=== PATIENT | male | born 1930 | race Caucasian/White ===

== ENCOUNTER 2017-01-27 15:55 | Inpatient (IN) | payer OTHER, MEDICARE ==
[~2017-01-27] VITALS: Ht 182.9 cm; Wt 98.5 kg
[2017-01-27] VITALS (7 sets, daily range): BP systolic 90–137; BP diastolic 55–70; PULSE 72–102; RESP 18–22; TEMP 99.1–103.3; O2SAT 89–97
[~2017-01-27 15:55] MED LIST: CEPH500C3 PO; HYDR-3533 PO; HYDR25; LUTE6TAB2 PO; OMPR20CCR PO
[2017-01-27] MEDS ORDERED: Atarax PO (16:09)
[2017-01-27] MEDS ORDERED: ACETAMINOPHEN 325 MG TAB PO ONE (16:15)
[2017-01-27] MEDS ORDERED: SODIUM CHLOR 0.9% 1000 ML INJ 1,000 ML IV ONE (16:15)
--- NOTE | 2017-01-27 16:19 | PD ---
HPI Chief Complaint: Fever Time Seen by Provider: 16:06 Travel History International Travel<30 days: No Contact w/Intl Traveler<30days: No Traveled to known affect area: No History of Present Illness HPI Patient is an 87-year-old male who is brought to the emergency room for evaluation of tremors. Patient reports that he began to have tremors this morning around 9:30am. Reports no chest pain or sob or fever/chills.. Reports that he has had a nonproductive cough. Patient denies abdominal pain, denies n/ v. Patient with no complaints at this time. Patient does have a pacemaker in place - reports that his regulatory affairs director is Dr. Harden. Patient reports that the only medication that he takes is atarax. 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) Genitourinary Surgery: Yes (VASECTOMY) Pacemaker: Yes Other Surgery: Yes Social History Alcohol Use: Yes (DAILY COCKTAIL) Tobacco Use: No (QUIT 1993) Substance Use: No Allergies-Medications (Allergen,Severity, Reaction): Coded Allergies: aspirin (Unverified Allergy, Severe, 11/20/16) oxaprozin (Unverified Allergy, Severe, BRUISES, 11/20/16) Reported Meds & Prescriptions Reported Meds & Active Scripts Active Reported [Atarax] 30 Mg PO DAILY Review of Systems General / Constitutional: Positive: Chills, No: Fever Eyes: No: Visual changes HENT: No: Headaches Cardiovascular: Positive: Tachycardia, No: Chest Pain or Discomfort Respiratory: No: Shortness of Breath Gastrointestinal: No: Abdominal Pain Genitourinary: No: Dysuria Musculoskeletal: No: Pain Skin: No Rash Neurologic: Positive: Tremor, Other ("tremors"), No: Weakness, Headache Psychiatric: No: Depression Endocrine: No: Polydipsia Hematologic/Lymphatic: No: Easy Bruising Physical Exam Narrative GENERAL: Moderate distress, patient tremulous SKIN: Focused skin assessment warm/dry. HEAD: Atraumatic. Normocephalic. EYES: Pupils equal and round. No scleral icterus. No injection or drainage. ENT: No nasal bleeding or discharge. Mucous membranes pink and moist. NECK: Trachea midline. No JVD. CARDIOVASCULAR: Regular rate and rhythm. No murmur appreciated. RESPIRATORY: No accessory muscle use. Clear to auscultation. Breath sounds equal bilaterally. GASTROINTESTINAL: Abdomen soft, non-tender, nondistended. Hepatic and splenic margins not palpable. MUSCULOSKELETAL: No obvious deformities. No clubbing. No cyanosis. No edema. NEUROLOGICAL: Awake and alert. No obvious cranial nerve deficits. Motor grossly within normal limits. Normal speech. PSYCHIATRIC: Appropriate mood and affect; insight and judgment normal. Data Data Last Documented VS Vital Signs Date Time Temp Pulse Resp B/P (MAP) Pulse Ox O2 Delivery O2 Flow Rate FiO2 01/27/17 18:03 72 18 109/68 (82) 97 Room Air 01/27/17 17:58 103.0 2.00 Orders Orders Electrocardiogram (01/27/17 16:07) Complete Blood Count With Diff (01/27/17 16:07) Comprehensive Metabolic Panel (01/27/17 16:07) Prothrombin Time / Inr (Pt) (01/27/17 16:07) Act Partial Throm Time (Ptt) (01/27/17 16:07) Lactic Acid Sepsis Protocol (01/27/17 16:07) Magnesium (Mg) (01/27/17 16:07) Lipase (01/27/17 16:07) Ckmb (Isoenzyme) Profile (01/27/17 16:07) Troponin I (01/27/17 16:07) Urinalysis - C+S If Indicated (01/27/17 16:07) Influenzae A/B Antigen (01/27/17 16:07) Blood Culture (01/27/17 16:07) Chest, Single Ap (01/27/17 16:07) Blood Glucose (01/27/17 16:07) Ecg Monitoring (01/27/17 16:07) Iv Access Insert/Monitor (01/27/17 16:07) Oximetry (01/27/17 16:07) Sodium Chlor 0.9% 1000 Ml Inj (Ns 1000 M (01/27/17 16:15) Acetaminophen (Tylenol) (01/27/17 16:15) Piperacil-Tazo 3.375 Gm Premix (Zosyn 3. (01/27/17 17:15) Vancomycin Inj (Vancomycin Inj) (01/27/17 17:15) Us Abdomen Gallbladder (01/27/17 ) Admit Order (Ed Use Only) (01/27/17 18:39) Admit To Inpatient (01/27/17 ) Code Status (01/27/17 18:40) Vital Signs (Adult) Q4H (01/27/17 18:40) Activity Bed Rest With Brp (01/27/17 18:40) Sales Enablement Analyst / Telemetry .CONTINUOUS (01/27/17 18:40) Diet Npo (01/27/17 Dinner) Sodium Chlor 0.9% 1000 Ml Inj (Ns 1000 M (01/27/17 18:40) Sodium Chloride 0.9% Flush (Ns Flush) (01/27/17 18:45) Sodium Chloride 0.9% Flush (Ns Flush) (01/27/17 21:00) Acetaminophen (Tylenol) (01/27/17 18:45) Ondansetron Inj (Zofran Inj) (01/27/17 18:45) Comprehensive Metabolic Panel (01/28/17 06:00) Complete Blood Count With Diff (01/28/17 06:00) Lipase (01/28/17 06:00) Electrocardiogram (01/27/17 18:40) Resp Oxygen Garrick C Titrat 1-4 L (01/27/17 ) Pt Request For Service (01/27/17 18:40) Ot Request For Service (01/27/17 18:40) Scd Bilateral/Knee High LAVERN.BID (01/27/17 18:40) Naloxone Inj (Narcan Inj) (01/27/17 18:45) Docusate Sodium-Senna (Lynda-Colace) (01/27/17 21:00) Magnesium Hydroxide Liq (Milk Of Magnesi (01/27/17 18:45) Sennosides (Senokot) (01/27/17 18:45) Bisacodyl Supp (Dulcolax Supp) (01/27/17 18:45) Lactulose Liq (Lactulose Liq) (01/27/17 18:45) Inpatient Certification (01/27/17 ) Labs Laboratory Tests Test 01/27/17 16:02 01/27/17 16:13 01/27/17 17:22 Lactic Acid Level 3.0 mmol/L White Blood Count 14.6 TH/MM3 Red Blood Count 2.82 MIL/MM3 Hemoglobin 10.2 GM/DL Hematocrit 31.3 % Mean Corpuscular Volume 111.0 FL Mean Corpuscular Hemoglobin 36.2 PG Mean Corpuscular Hemoglobin Concent 32.6 % Red Cell Distribution Width 28.4 % Platelet Count 135 TH/MM3 Mean Platelet Volume 8.9 FL CBC Comment AUTO DIFF Differential Total Cells Counted 100 Neutrophils % (Manual) 79 % Band Neutrophils % 10 % Lymphocytes % 7 % Neutrophils # (Manual) 13.6 TH/MM3 Metamyelocytes 4 % Differential Comment FINAL DIFF MANUAL Prothrombin Time 11.2 SEC Prothromb Time International Ratio 1.0 RATIO Activated Partial Thromboplast Time 26.4 SEC Blood Urea Nitrogen 16 MG/DL Creatinine 1.02 MG/DL Random Glucose 149 MG/DL Total Protein 7.3 GM/DL Albumin 4.0 GM/DL Calcium Level 9.1 MG/DL Magnesium Level 1.9 MG/DL Alkaline Phosphatase 169 U/L Aspartate Amino Transf (AST/SGOT) 271 U/L Alanine Aminotransferase (ALT/SGPT) 192 U/L Total Bilirubin 3.6 MG/DL Sodium Level 134 MEQ/L Potassium Level 4.1 MEQ/L Chloride Level 102 MEQ/L Carbon Dioxide Level 24.0 MEQ/L Anion Gap 8 MEQ/L Estimat Glomerular Filtration Rate 69 ML/MIN Total Creatine Kinase 26 U/L Troponin I LESS THAN 0.02 NG/ML Lipase 390 U/L Urine Color DARK-YELLOW Urine Turbidity CLEAR Urine pH 6.0 Urine Specific [place] 1.021 Urine Protein TRACE mg/dL Urine Glucose (UA) NEG mg/dL Urine Ketones NEG mg/dL Urine Occult Blood NEG Urine Nitrite NEG Urine Bilirubin SMALL Urine Urobilinogen 8.0 MG/DL Urine Leukocyte Esterase NEG Urine RBC 2 /hpf Urine WBC 3 /hpf Urine Squamous Epithelial Cells <1 /hpf Urine Mucus FEW /lpf Microscopic Urinalysis Comment CATH-CULT NOT IND MDM Medical Decision Making Medical Screen Exam Complete: Yes Emergency Medical Condition: Yes Medical Record Reviewed: Yes Interpretation(s) Vital Signs Date Time Temp Pulse Resp B/P (MAP) Pulse Ox O2 Delivery O2 Flow Rate FiO2 01/27/17 16:04 100.0 102 22 137/59 (85) 89 Differential Diagnosis Differential includes pneumonia, infection, ACS, arrhythmia, electrolyte abnormality Narrative Course Vital Signs Date Time Temp Pulse Resp B/P (MAP) Pulse Ox O2 Delivery O2 Flow Rate FiO2 01/27/17 16:04 100.0 102 22 137/59 (85) 89 Patient with a temperature of 100.0, patient tachycardic with heart rate of 102 , respiratory rate of 22. Patient's only complaint is tremors, given his SIRS criteria, blood culture as well as lactic acid ordered. CBC, CMP, CE's ordered. Patient was placed on a athletic monitor upon arrival to ER, plan to monitor patient. Vital Signs Date Time Temp Pulse Resp B/P (MAP) Pulse Ox O2 Delivery O2 Flow Rate FiO2 01/27/17 17:01 103.3 01/27/17 16:12 97 Nasal Cannula 2.00 01/27/17 16:04 100.0 102 22 137/59 (85) 89 Laboratory Tests Test 01/27/17 16:02 01/27/17 16:13 01/27/17 17:22 Lactic Acid Level 3.0 mmol/L (0.4-2.0) White Blood Count 14.6 TH/MM3 (4.0-11.0) Red Blood Count 2.82 MIL/MM3 (4.50-5.90) Hemoglobin 10.2 GM/DL (13.0-17.0) Hematocrit 31.3 % (39.0-51.0) Mean Corpuscular Volume 111.0 FL (80.0-100.0) Mean Corpuscular Hemoglobin 36.2 PG (27.0-34.0) Mean Corpuscular Hemoglobin Concent 32.6 % (32.0-36.0) Red Cell Distribution Width 28.4 % (11.6-17.2) Platelet Count 135 TH/MM3 (150-450) Mean Platelet Volume 8.9 FL (7.0-11.0) CBC Comment AUTO DIFF Differential Total Cells Counted 100 Neutrophils % (Manual) 79 % (16-70) Band Neutrophils % 10 % (0-6) Lymphocytes % 7 % (9-44) Neutrophils # (Manual) 13.6 TH/MM3 (1.8-7.7) Metamyelocytes 4 % (0-1) Differential Comment FINAL DIFF MANUAL Prothrombin Time 11.2 SEC (9.8-11.6) Prothromb Time International Ratio 1.0 RATIO Activated Partial Thromboplast Time 26.4 SEC (24.3-30.1) Blood Urea Nitrogen 16 MG/DL (7-18) Creatinine 1.02 MG/DL (0.60-1.30) Random Glucose 149 MG/DL (74-106) Total Protein 7.3 GM/DL (6.4-8.2) Albumin 4.0 GM/DL (3.4-5.0) Calcium Level 9.1 MG/DL (8.5-10.1) Magnesium Level 1.9 MG/DL (1.5-2.5) Alkaline Phosphatase 169 U/L (45-117) Aspartate Amino Transf (AST/SGOT) 271 U/L (15-37) Alanine Aminotransferase (ALT/SGPT) 192 U/L (12-78) Total Bilirubin 3.6 MG/DL (0.2-1.0) Sodium Level 134 MEQ/L (136-145) Potassium Level 4.1 MEQ/L (3.5-5.1) Chloride Level 102 MEQ/L (98-107) Carbon Dioxide Level 24.0 MEQ/L (21.0-32.0) Anion Gap 8 MEQ/L (5-15) Estimat Glomerular Filtration Rate 69 ML/MIN (>89) Total Creatine Kinase 26 U/L (39-308) Troponin I LESS THAN 0.02 NG/ML Lipase 390 U/L (73-393) Last Impressions Chest X-Ray 01/27/17 1607 Signed Impressions: Service Date/Time: Friday, January 27, 2017 16:18 - CONCLUSION: 1. Mild basal atelectasis. No effusion or pneumothorax. Mejia Sewell MD Patient with lactic acidosis with bandemia (10), patients lactate 3.0, wbc 14.6 , patient has been pancultured and vanco as well as zosyn ordered for her. He does have transaminitis with elevated tbili, RUQ US ordered Patient will require admission at this time for workup for sepsis case reviewed with dr. vargas who accepts pt to service Diagnosis Primary Impression: Sepsis Qualified Codes: A41.9 - Sepsis, unspecified organism Additional Impressions: Anemia Qualified Codes: D64.9 - Anemia, unspecified Transaminitis Admitting Information Admitting Physician Requests: Admit Liliya Peres DO Jan 27, 2017 16:19
[2017-01-27 16:50] LABS: HEMATOCRIT 31.3 % (39.0-51.0); MEAN CORPUSCULAR HEMOGLOBIN 36.2 PG (27.0-34.0); MEAN CORPUSCULAR HGB CONC 32.6 % (32.0-36.0); PLATELET COUNT 135 TH/MM3 (150-450); RED BLOOD COUNT 2.82 MIL/MM3 (4.50-5.90); RED CELL DISTRIBUTION WIDTH 28.4 % (11.6-17.2); WHITE BLOOD COUNT 14.6 TH/MM3 (4.0-11.0)
--- NOTE | 2017-01-27 17:03 | RADRPT ---
EXAM DATE/TIME: 01/27/2017 16:18 [facility] COMPARISON: CHEST SINGLE AP, April 21, 2014, 19:37. INDICATIONS : Fever and shortness of breath. MEDICAL HISTORY : Hypertension. SURGICAL HISTORY : Pacemaker. ENCOUNTER: Initial ACUITY: 2 days PAIN SCORE: Non-responsive. LOCATION: Bilateral chest FINDINGS: A single view of the chest demonstrates pacer leads overlying right atrium and right ventricle. Heart size mildly enlarged. Mild basal atelectasis. No pneumothorax. No significant effusion. CONCLUSION: 1. Mild basal atelectasis. No effusion or pneumothorax. Mejia Sewell MD on January 27, 2017 at 16:49 Board Certified Radiologist. This report was verified electronically.
[2017-01-27 17:04] LABS: ANION GAP 8 MEQ/L (5-15); APTT (PATIENT) 26.4 SEC (24.3-30.1); AST (GOT) 271 U/L (15-37); BLOOD UREA NITROGEN 16 MG/DL (7-18); CHLORIDE 102 MEQ/L (98-107); GLOMERULAR FILTRATION RATE 69 ML/MIN (>89); MAGNESIUM 1.9 MG/DL (1.5-2.5); POTASSIUM 4.1 MEQ/L (3.5-5.1); PROTHROMBIN TIME - PATIENT 11.2 SEC (9.8-11.6); SODIUM (NA) 134 MEQ/L (136-145)
[2017-01-27 17:05] LABS: ALT (GPT) 192 U/L (12-78)
[2017-01-27 17:08] LABS: ALKALINE PHOSPHATASE 169 U/L (45-117); TOTAL BILIRUBIN ADULT 3.6 MG/DL (0.2-1.0)
[2017-01-27 17:09] LABS: CREATINE KINASE 26 U/L (39-308); HEMO FLAGS AUTO DIFF
[2017-01-27] MEDS ORDERED: VANCOMYCIN INJ 1,400 MG in SODIUM CHLORID 0.9% 500 ML INJ 500 ML IV ONE (17:15)
[2017-01-27] MEDS ORDERED: PIPERACIL-TAZO 3.375 GM PREMIX 50 ML IV ONE (17:15)
[2017-01-27 17:37] LABS: BANDS 10 % (0-6); METAMYELOCYTES 4 % (0-1); NEUTROPHIL # MANUAL DIFF 13.6 TH/MM3 (1.8-7.7); POLYS (SEG NEUTROPHILS) 79 % (16-70); WBC DIFF SAMPLE 100
[2017-01-27 17:38] LABS: SCAN/DIFF FINAL DIFF MANUAL
[2017-01-27 17:41] LABS: BLOOD, URINE NEG (NEG); GLUCOSE,URINE NEG (NEG); KETONE, URINE NEG (NEG); MUCUS URINE FEW /lpf (OCC); NITRITE,URINE NEG (NEG); SQUAMOUS EPITHELIAL CELL URINE <1 /hpf (0-5); URINE COLOR DARK-YELLOW (YELLW/STRAW)
[2017-01-27 17:42] LABS: COMMENT (UR) CATH-CULT NOT IND; CULTURE IF INDICATED CATH CULTURE NOT IND
--- NOTE | 2017-01-27 18:10 | RADRPT ---
EXAM DATE/TIME: 01/27/2017 17:41 [facility] COMPARISON: No previous studies available for comparison. INDICATIONS : Right upper quadrant pain. MEDICAL HISTORY : Hearing aids. Glasses. Dentures. Diabetes. SURGICAL HISTORY : Pacemaker. Left eye corneal implant. Hernia repair. Vasectomy. Right knee scope. ENCOUNTER: Initial ACUITY: 1 day PAIN SCORE: 4/10 LOCATION: Right upper quadrant MEASUREMENTS: LIVER: 17.5 cm length COMMON DUCT: 6 mm RIGHT KIDNEY: 12.0 x 4.2 x 6.1 cm FINDINGS: LIVER: Normal echotexture without focal lesion or ductal dilatation. COMMON DUCT: No intraluminal mass or stone visualized. GALLBLADDER: Contains no stones, demonstrates no wall thickening or pericholecystic fluid. PANCREAS: The visualized portions are within normal limits. RIGHT KIDNEY: No evidence of hydronephrosis, stone, or mass. CONCLUSION: Normal examination. John Velez Jr., MD on January 27, 2017 at 18:05 Board Certified Radiologist. This report was verified electronically.
--- NOTE | 2017-01-27 18:36 | HHI.HP ---
HPI Service [facility] Primary Care Physician Bimal Cottrell MD Admission Diagnosis Diagnoses: Chief Complaint: "Shaking", fevers Travel History International Travel<30 Days: No Contact w/Intl Traveler <30 Da: No Traveled to Known Affected Are: No Sepsis Criteria SIRS Criteria (2 or more): Temp > 100.9 or < 96.8, Heart rate over 90, WBC > 37005, < 4000 or > 10% bands Sepsis Criteria (SIRS+source): Infect source susp/known Severe Sepsis (+one): Organ Dysfunction, Lactate >2 Criteria Outcome: Meets SIRS criteria, Meets sepsis criteria, Meets severe sepsis criteria History of Present Illness Patient is a pleasant 87-year-old male with primary medical history of macular degeneration, BPH, mild PVD who came into the hospital for evaluation of "shakes " and fever. at the bedside and neighbor at the bedside. reports that yesterday patient had abdominal pain but states it went away after. This morning he again has another abdominal pain, mid epigastric region, but states it went away after a few minutes and then patient started to have some shaking episode with his hands with tremors, noted to have fever but did not take the temperature. Patient denies any abdominal pain, nausea, vomiting, diarrhea. Denies any cramping, dysuria. Denies any chest pain, palpitations. On 2 L nasal cannula, denies any shortness of breath, dyspnea. Review of records, patient also had a history of A. fib, atrioventricular block , bradycardia. Previously seen by Dr. Diallo for permanent pacemaker placement 2014. Review of Systems Constitutional: COMPLAINS OF: Fever Endocrine: DENIES: Heat/cold intolerance, Polydipsia, Polyuria Eyes: DENIES: Blurred vision, Diplopia, Eye inflammation Ears, nose, mouth, throat: DENIES: Tinnitus, Hearing loss Respiratory: DENIES: Apneas, Cough, Snoring, Wheezing Cardiovascular: DENIES: Chest pain, Palpitations, Syncope, Dyspnea on Exertion Gastrointestinal: COMPLAINS OF: Abdominal pain, DENIES: Black stools, Bloody stools, Constipation, Diarrhea Genitourinary: DENIES: Sexual dysfunction Musculoskeletal: DENIES: Joint pain, Muscle aches, Stiffness Integumentary: DENIES: Abnormal pigmentation, Nail changes Hematologic/lymphatic: DENIES: Bruising, Lymphadenopathy Immunologic/allergic: DENIES: Eczema, Urticaria Neurologic: DENIES: Headache, Localized weakness, Paresthesias, Seizures Psychiatric: COMPLAINS OF: Confusion, DENIES: Anxiety, Mood changes, Depression , Hallucinations Except as stated in HPI: all other systems reviewed are Neg Past Family Social History Past Medical History Macular degeneration BPH Mild PVD Atrial fibrillation Atrioventricular block Past Surgical History Right knee replacement Permanent pacemaker dual chamber, 2014 Double hernia repair Vasectomy Left corneal transplant Reported Medications Reported Meds & Active Scripts Active Reported [Atarax] 30 Mg PO DAILY Allergies: Coded Allergies: aspirin (Unverified Allergy, Severe, 11/20/16) oxaprozin (Unverified Allergy, Severe, BRUISES, 11/20/16) Active Ordered Medications Current Medications Medications (Trade) Dose Ordered Sig/Tati Route Start Time Stop Time Status Last Admin Vancomycin HCl 1400 mg/Sodium Chloride 514 ml @ 250 mls/hr ONCE ONCE IV 01/27/17 17:15 01/27/17 19:18 01/27/17 17:45 Family History Father history of cardiac arrest Brother has heart disease Social History Previous alcohol use Former smoker quit 1993 Denies illicit drug use Physical Exam Vital Signs Vital Signs Date Time Temp Pulse Resp B/P (MAP) Pulse Ox O2 Delivery O2 Flow Rate FiO2 01/27/17 18:03 72 18 109/68 (82) 97 Room Air 01/27/17 17:58 103.0 95 20 109/56 (73) 97 Nasal Cannula 2.00 01/27/17 17:01 103.3 01/27/17 16:12 97 Nasal Cannula 2.00 01/27/17 16:04 100.0 102 22 137/59 (85) 89 Physical Exam GENERAL: This is a well-nourished, well-developed patient, mildly ill appearing. SKIN: Warm and dry. Jaundice. HEAD: Normocephalic. EYES: Pupils equal round and reactive. Extraocular motions intact. Scleral icterus noted. No injection or drainage. ENT: Nose without bleeding. Throat without erythema. Uvula midline. Airway patent. TONGUE MIDLINE- JAUNDICE UNDERSIDE OF TONGUE NECK: Trachea midline. CARDIOVASCULAR: Elevated HR 100s S1, S2 NO S3 OR S4 IRR RESPIRATORY: Diminished bases. No wheezes, rales, or rhonchi. GASTROINTESTINAL: Abdomen soft, non-tender, nondistended. No guarding. Bowel sounds active 4. MUSCULOSKELETAL: Extremities without clubbing, cyanosis, or edema. NEUROLOGICAL: Awake and alert. Oriented to time, place, president. Cranial nerves II through XII intact. Motor and sensory grossly within normal limits. Normal speech. INSIGHT AND JUDGEMENT ARE GOOD, MOOD AND BEHAVIOR ARE APPROPRIATE Laboratory Laboratory Tests Test 01/27/17 16:02 01/27/17 16:13 01/27/17 17:22 Lactic Acid Level 3.0 White Blood Count 14.6 Red Blood Count 2.82 Hemoglobin 10.2 Hematocrit 31.3 Mean Corpuscular Volume 111.0 Mean Corpuscular Hemoglobin 36.2 Mean Corpuscular Hemoglobin Concent 32.6 Red Cell Distribution Width 28.4 Platelet Count 135 Mean Platelet Volume 8.9 CBC Comment AUTO DIFF Differential Total Cells Counted 100 Neutrophils % (Manual) 79 Band Neutrophils % 10 Lymphocytes % 7 Neutrophils # (Manual) 13.6 Metamyelocytes 4 Differential Comment FINAL DIFF MANUAL Prothrombin Time 11.2 Prothromb Time International Ratio 1.0 Activated Partial Thromboplast Time 26.4 Blood Urea Nitrogen 16 Creatinine 1.02 Random Glucose 149 Total Protein 7.3 Albumin 4.0 Calcium Level 9.1 Magnesium Level 1.9 Alkaline Phosphatase 169 Aspartate Amino Transf (AST/SGOT) 271 Alanine Aminotransferase (ALT/SGPT) 192 Total Bilirubin 3.6 Sodium Level 134 Potassium Level 4.1 Chloride Level 102 Carbon Dioxide Level 24.0 Anion Gap 8 Estimat Glomerular Filtration Rate 69 Total Creatine Kinase 26 Troponin I LESS THAN 0.02 Lipase 390 Urine Color DARK-YELLOW Urine Turbidity CLEAR Urine pH 6.0 Urine Specific [place] 1.021 Urine Protein TRACE Urine Glucose (UA) NEG Urine Ketones NEG Urine Occult Blood NEG Urine Nitrite NEG Urine Bilirubin SMALL Urine Urobilinogen 8.0 Urine Leukocyte Esterase NEG Urine RBC 2 Urine WBC 3 Urine Squamous Epithelial Cells <1 Urine Mucus FEW Microscopic Urinalysis Comment CATH-CULT NOT IND Date/Time Source Procedure Growth Status 01/27/17 16:10 Blood Peripheral Aerobic Blood Culture Pending Received 01/27/17 16:10 Blood Peripheral Anaerobic Blood Culture Pending Received 01/27/17 16:57 Nasal Aspirate Influenza Types A,B Antigen ([facility]) - Final NEGATIVE FOR FLU A AND B ANTIGEN.... Complete Result Diagram: 01/27/17 1613 01/27/17 1613 Imaging Last Impressions Chest X-Ray 01/27/17 1607 Signed Impressions: Service Date/Time: Friday, January 27, 2017 16:18 - CONCLUSION: 1. Mild basal atelectasis. No effusion or pneumothorax. MD Stephanie Roldan VTE Risk Assessment Caprini VTE Risk Assessment: Mod/High Risk (score >= 2) Caprini Risk Assessment Model Point Value = 1 Point Value = 2 Point Value = 3 Point Value = 5 Age 41-60 Minor surgery BMI > 25 kg/m2 Swollen legs Varicose veins or History of unexplained or recurrent spontaneous Oral contraceptives or hormone replacement Sepsis (< 1 month) Serious lung disease, including pneumonia (< 1 month) Abnormal pulmonary function Acute myocardial infarction Congestive heart failure (< 1 month) History of inflammatory bowel disease Medical patient at bed rest Age 61-74 Arthroscopic surgery Major open surgery (> 45 min) Laparoscopic surgery (> 45 min) Malignancy Confined to bed (> 72 hours) Immobilizing plaster cast Central venous access Age >= 75 History of VTE Family history of VTE Factor V Leiden Prothrombin [id number] Lupus anticoagulant Anticardiolipin antibodies Elevated serum homocysteine Heparin-induced thrombocytopenia Other congenital or acquired thrombophilia Stroke (< 1 month) Elective arthroplasty Hip, pelvis, or leg fracture Acute spinal cord injury (< 1 month) Prophylaxis Regimen Total Risk Factor Score Risk Level Prophylaxis Regimen 0-1 Low Early ambulation 2 Moderate Order ONE of the following: *Sequential Compression Device (SCD) *Heparin 5000 units SQ BID 3-4 Higher Order ONE of the following medications: *Heparin 5000 units SQ TID *Enoxaparin/Lovenox 40 mg SQ daily (WT < 150 kg, CrCl > 30 mL/min) *Enoxaparin/Lovenox 30 mg SQ daily (WT < 150 kg, CrCl > 10-29 mL/min) *Enoxaparin/Lovenox 30 mg SQ BID (WT < 150 kg, CrCl > 30 mL/min) AND/OR *Sequential Compression Device (SCD) 5 or more Highest Order ONE of the following medications: *Heparin 5000 units SQ TID (Preferred with Epidurals) *Enoxaparin/Lovenox 40 mg SQ daily (WT < 150 kg, CrCl > 30 mL/min) *Enoxaparin/Lovenox 30 mg SQ daily (WT < 150 kg, CrCl > 10-29 mL/min) *Enoxaparin/Lovenox 30 mg SQ BID (WT < 150 kg, CrCl > 30 mL/min) AND *Sequential Compression Device (SCD) Assessment and Plan Problem List: (1) Acute liver failure ICD Code: K72.00 - Acute and subacute hepatic failure without coma Status: Acute (2) Sepsis ICD Code: A41.9 - Sepsis, unspecified organism Status: Acute (3) Anemia ICD Code: D64.9 - Anemia, unspecified Status: Acute Assessment and Plan Patient is a pleasant 87-year-old male with primary medical history of macular degeneration, BPH, mild PVD who came into the hospital for evaluation of "shakes " and fever. Sepsis severe, SIRS Suspect Abdominal Source LEUKOCYTOSIS ELEVATED LACTIC ACID - WBC 14.6, Temp 100-->103.3, Lactic Acid 3.0 - Chest x-ray showed mild basilar atelectasis. No effusion or pneumothorax. - Check blood cultures - Ultrasound of the gallbladder showed normal examination - Check CT of the abdomen - Started vancomycin IV, Zosyn IV - IV fluids for hydration - Follow up labs in a.m. - Will consult ID if warranted for further recommendations Liver failure, acute - Transaminitis, T bili 3.6, AST 271, ALT 192, alkaline phosphatase 169 - CT of the abdomen - Will consult GI if warranted VERY HARD OF HEARING- HEARING AIDES OR SPEAK VERY LOUD HX OF PACEMAKER STABLE AM LABS DVT prop SCDs The exam, history, and the medical decision-making described in the above note were completed with the assistance of the mid-level provider. I reviewed and agree with the findings presented. I attest that I had a [id number] encounter with the patient on the same day, and personally performed and documented my assessment and findings in the medical record. Code Status Full code Discussed Condition With Patient, , nursing, Dr. Dougherty Physician Certification 2 Midnight Certification Type: Admission for Inpatient Services Order for Inpatient Services The services are ordered in accordance with Medicare regulations or non- Medicare payer requirements, as applicable. In the case of services not specified as inpatient-only, they are appropriately provided as inpatient services in accordance with the 2-midnight benchmark. Estimated LOS (days): 2 days is the estimated time the patient will need to remain in the hospital, assuming treatment plan goals are met and no additional complications. Post-Hospital Plan: Not yet determined Problem Qualifiers (1) Sepsis: Qualified Codes: A41.9 - Sepsis, unspecified organism (2) Anemia: Qualified Codes: D64.9 - Anemia, unspecified Natanael Coats Jan 27, 2017 18:36 Rocky Dougherty DO Jan 27, 2017 19:02
[2017-01-27 18:39] LABS: LACTIC ACID GHOST NOT REPORTABLE
[2017-01-27] MEDS ORDERED: ONDANSETRON HCL 4 MG/2 ML VIAL IVP PRN ×2 (18:45→19:00)
[2017-01-27] MEDS ORDERED: SODIUM CHLORIDE 0.9% FLUSH 10 ML FLUSH IV FLUSH PRN ×2 (18:45→19:00)
[2017-01-27] MEDS ORDERED: LACTULOSE SYRUP 20 GM/30 ML CUP PO PRN ×2 (18:45→19:00)
[2017-01-27] MEDS ORDERED: SENNOSIDES 8.6 MG TAB PO PRN ×2 (18:45→19:00)
[2017-01-27] MEDS ORDERED: NALOXONE HCL 0.4 MG/ML AMP IV PUSH PRN ×2 (18:45→19:00)
[2017-01-27] MEDS ORDERED: MAGNESIUM HYDROXIDE SUSP 30 ML CUP PO PRN ×2 (18:45→19:00)
[2017-01-27] MEDS ORDERED: BISACODYL 10 MG SUPP RECTAL PRN ×2 (18:45→19:00)
[2017-01-27] MEDS ORDERED: ACETAMINOPHEN 325 MG TAB PO PRN ×3 (18:45→19:00)
[2017-01-27] MEDS ORDERED: MORPHINE SULFATE 4 MG/ML INJ IV PUSH PRN ×3 (19:00)
[2017-01-27] MEDS ORDERED: PROCHLORPERAZINE 25 MG SUPP RECTAL PRN (19:00)
[2017-01-27] MEDS ORDERED: traMADol HCL 50 MG TAB PO PRN ×2 (19:00)
[2017-01-27] MEDS ORDERED: IOHEXOL 350 MG/ML 10 ML VIAL (for RAD DIAG) IVCONTRAST ONE (19:13)
[2017-01-27] MEDS: SODIUM CHLOR 0.9% 1000 ML INJ 1,000 ML IV SCH (19:28)
--- NOTE | 2017-01-27 19:29 | RADRPT ---
EXAM DATE/TIME: 01/27/2017 19:09 [facility] COMPARISON: No previous studies available for comparison. INDICATIONS : Fever and low abdominal pain X 2 days. IV CONTRAST: 98 cc Omnipaque 350 (iohexol) IV ORAL CONTRAST: No oral contrast ingested. RADIATION DOSE: 15.91 CTDIvol (mGy) MEDICAL HISTORY : Cardiovascular disease. Diabetes mellitus type 2. SURGICAL HISTORY : Right hip surgery ENCOUNTER: Initial ACUITY: 2 days PAIN SCALE: 6/10 LOCATION: abdomen TECHNIQUE: Volumetric scanning of the abdomen and pelvis was performed. Using automated exposure control and ad justment of the mA and/or kV according to patient size, radiation dose was kept as low as reasonably achievable to obtain optimal diagnostic quality images. DICOM format image data is available electro nically for review and comparison. FINDINGS: Lung bases demonstrate dependent atelectasis, scarring and calcified granulomata. No significant pleu ral or pericardial effusion. Mild fatty liver. Spleen, adrenals and pancreas unremarkable. Common bile duct mildly dilated to 14 m m. No calcified gallstones. There is severe sigmoid diverticulosis without diverticulitis. No inflammatory changes identified wit hin the abdomen and pelvis. Previous bilateral inguinal repair. Previous arjun fixation right femur. CONCLUSION: 1. No acute findings within the abdomen or pelvis. Severe diverticulosis without evidence for diverti culitis. 2. Mild biliary ductal dilatation without evidence for calcified gallstones. 3. Dependent atelectasis, scarring at the lung bases with calcified granulomata. Mejia Sewell MD on January 27, 2017 at 19:24 Board Certified Radiologist. This report was verified electronically.
[2017-01-27] MEDS ORDERED: DOCUSATE SODIUM 50 MG/SENNA 8.6 MG TAB PO SCH (21:00)
[2017-01-27] MEDS ORDERED: SODIUM CHLORIDE 0.9% FLUSH 10 ML FLUSH IV FLUSH SCH (21:00)
[2017-01-27] MEDS: SODIUM CHLORIDE 0.9% FLUSH 10 ML FLUSH IV FLUSH SCH (22:30)
[2017-01-27] MEDS: DOCUSATE SODIUM 50 MG/SENNA 8.6 MG TAB PO SCH (22:34)
[2017-01-28] VITALS (9 sets, daily range): BP systolic 93–132; BP diastolic 50–62; PULSE 62–104; RESP 19–22; TEMP 98.8–100.2; O2SAT 91–95
[2017-01-28] MEDS: PIPERACIL-TAZO 3.375 GM PREMIX 50 ML IV SCH ×5 (00:04→22:51)
[2017-01-28] MEDS ORDERED: VANCOMYCIN INJ 1,400 MG in SODIUM CHLORID 0.9% 500 ML INJ 500 ML IV SCH (06:00)
[2017-01-28] MEDS: SODIUM CHLOR 0.9% 1000 ML INJ 1,000 ML IV SCH ×2 (06:09→17:04)
[2017-01-28 08:14] LABS: AUTOMATED NEUTROPHIL # 24.6 TH/MM3 (1.8-7.7); BASOPHIL # 0.2 TH/MM3 (0-0.2); BASOPHIL % 0.6 % (0.0-2.0); HEMATOCRIT 28.1 % (39.0-51.0); LYMPH % 3.6 % (9.0-44.0); MEAN CORPUSCULAR HEMOGLOBIN 36.4 PG (27.0-34.0); MEAN CORPUSCULAR HGB CONC 33.4 % (32.0-36.0); NEUT % 93.8 % (16.0-70.0); PLATELET COUNT 111 TH/MM3 (150-450); RED BLOOD COUNT 2.58 MIL/MM3 (4.50-5.90); RED CELL DISTRIBUTION WIDTH 28.4 % (11.6-17.2); WHITE BLOOD COUNT 26.2 TH/MM3 (4.0-11.0)
[2017-01-28 08:18] LABS: HEMO FLAGS AUTO DIFF
[2017-01-28] MEDS: SODIUM CHLORIDE 0.9% FLUSH 10 ML FLUSH IV FLUSH SCH ×2 (08:52→21:00)
[2017-01-28] MEDS: DOCUSATE SODIUM 50 MG/SENNA 8.6 MG TAB PO SCH ×2 (08:54→21:00)
[2017-01-28 09:20] LABS: ANION GAP 11 MEQ/L (5-15); AST (GOT) 193 U/L (15-37); BLOOD UREA NITROGEN 20 MG/DL (7-18); CHLORIDE 107 MEQ/L (98-107); GLOMERULAR FILTRATION RATE 56 ML/MIN (>89); MAGNESIUM 1.8 MG/DL (1.5-2.5); POTASSIUM 3.6 MEQ/L (3.5-5.1); SODIUM (NA) 139 MEQ/L (136-145)
[2017-01-28 09:34] LABS: BANDS 22 % (0-6); NEUTROPHIL # MANUAL DIFF 24.6 TH/MM3 (1.8-7.7); PLATELET ESTIMATE SMEAR LOW (NORMAL); POLYS (SEG NEUTROPHILS) 72 % (16-70); SCAN/DIFF FINAL DIFF MANUAL; WBC DIFF SAMPLE 100
[2017-01-28 09:41] LABS: ALKALINE PHOSPHATASE 146 U/L (45-117); ALT (GPT) 227 U/L (12-78); FREE T4 1.25 NG/DL (0.76-1.46); TOTAL BILIRUBIN ADULT 4.2 MG/DL (0.2-1.0)
[2017-01-28 09:42] LABS: KERATOCYTES OCC (NORMAL); PLATELET MORPHOLOGY ENLARGED (NORMAL); TOXIC GRANULATION 1+ (NORMAL)
--- NOTE | 2017-01-28 10:32 | EKG ---
Date Performed: 01/27/2017 Time Performed: 21:59:22 PTAGE: 87 years EKG: SINUS TACHYCARDIA WITH FIRST DEGREE AV BLOCK RIGHT BUNDLE BRANCH BLOCK ABNORMAL ECG Compare d to PREVIOUS TRACING sinus rate is faster, PVCs are no longer seen PREVIOUS TRACIN 015 06.32 DOCTOR: Don Arcos Interpretating Date/Time 01/28/2017 10:31:27
--- NOTE | 2017-01-28 12:04 | OTSOAPIP ---
ATTEMPTED TO SEE PATIENT TWICE THIS MORNING. PATIENT OFF FLOOR FOR [facility]. WILL FOLLOW UP WITH PATIENT NEXT DAY. INTERDISCIPLINARY COMMUNICATION: REVIEWED ELECTRONIC MEDICAL RECORD, SPOKE WITH RN Therapist: Hemalatha Rosas OTR/Jai Signature on file
--- NOTE | 2017-01-28 13:02 | RADRPT ---
EXAM DATE/TIME: 01/28/2017 10:09 This report includes an Addendum and supersedes previous reports for this exam. [facility] COMPARISON: CT ABDOMEN & PELVIS W CONTRAST, January 27, 2017, 19:09. INDICATIONS : Abdominal pain for 1 day. DOSE: 4.1 mCi Tc99m Mebrofenin IV MEDICAL HISTORY : Carcinoma, basal cell. Cardiovascular disease SURGICAL HISTORY : Pacemaker. Right leg and vasectomy. ENCOUNTER: Initial ACUITY: 1 day PAIN SCALE: 3/10 LOCATION: Right upper quadrant TECHNIQUE: Following the intravenous administration of radiotracer, dynamic sequential images were performed wit h continuous acquisition. FINDINGS: HEPATIC KINETICS: There is prompt uptake of radiotracer in the liver. No focal defects are seen. There is normal rate of washout from the hepatic parenchyma. BILIARY CLEARANCE: Activity is first seen in the extrahepatic biliary system at 15 minutes. There is normal excretion i nto the small bowel. GALLBLADDER: Activity is first seen in the gallbladder at 25 minutes. Common bile duct kinetics are normal and th ere is no evidence of biliary obstruction. BILIARY ENTRIC REFLUX: None observed. CONCLUSION: Normal examination. John Velez Jr., MD on January 28, 2017 at 12:40 Board Certified Radiologist. This report was verified electronically. ADDENDUM: COMPARISON: US ABDOMEN - GALLBLADDER, January 27, 2017, 17:41. Delayed imaging was performed at 23 hours. An anterior planar view of the abdomen and pelvis demonst rates activity throughout the colon. No definite activity seen within the gallbladder. On the original dynamic acquisition, there was a changing pattern of uptake superimposed upon the com mon hepatic duct which mimicked the intensity of uptake in the distal common bile duct suggesting jairon t the activity seen on the original dynamics study is dilated common duct activity and not gallbladde r activity (CT images demonstrated the gallbladder to be farther lateral and inferior). Therefore, overall impression is that there is nonvisualization of the gallbladder up to 24 hours. T he findings would be suspicious cystic duct obstruction (acute cholecystitis). John Vee MD on January 29, 2017 at 9:08 Board Certified Radiologist. This report was verified electronically.
--- NOTE | 2017-01-28 15:00 | MB ---
cc: LAURA NGUYỄN MD, DANIEL M.D. DATE OF CONSULTATION: 01/28/[address] Matos. REASON FOR CONSULTATION Admitted with sepsis, transaminitis, hyperbilirubinemia. E. coli growing on blood culture. HISTORY OF PRESENT ILLNESS This is an 87-year-old white male who was brought to the emergency department yesterday evening after an episode of fever and tremors. The patient's states that he was shaking uncontrollably before he was brought to the emergency department. In the emergency department he had a temperature of 103 degrees. The heart rate was normal. White blood cell count was elevated at 14.6 and lactic acid level was also elevated at 3.0. The patient had a chest x-ray which was unremarkable. The urinalysis was performed and it showed 3 white cells. Urine culture was not performed. The patient was also noted to have elevation of his liver function tests and elevated bilirubin of 3.6. The patient denies abdominal pain. He went for a HIDA scan which came back normal. CT scan of the abdomen showed no acute findings within the abdomen or pelvis. Severe diverticulosis without evidence of diverticulitis was noted. There was also scarring at the lung bases with calcified granuloma. The patient has no diarrhea and denies vomiting or nausea. PAST MEDICAL HISTORY 1. Atrial fibrillation. 2. Benign prostatic hypertrophy. 3. Macular degeneration. 4. Pacemaker implantation April 2014. 5. Right knee replacement. 6. Hernia repair. 7. Vasectomy. 8. Left corneal transplant. ALLERGIES 1. ASPIRIN. 2. OXAPROZIN. MEDICATIONS 1. Vancomycin. 2. Piperacillin/tazobactam. 3. Lactulose. FAMILY HISTORY Noncontributory. REVIEW OF SYSTEMS Negative on 10-point review, except for the fevers and tremors. PHYSICAL EXAMINATION GENERAL: This is a well-developed male in no acute distress. He appears well-nourished. VITAL SIGNS: Temperature 100.2, BP 93/55, respirations 20. Heart rate 92. HEENT: The head is atraumatic. Extraocular movements grossly intact. Pupils reactive to light. No icterus. Oropharynx no visible lesions. NECK: Supple without adenopathy. LUNGS: Clear breath sounds. HEART: Regular rate and rhythm. No murmurs, rubs or gallops. The pacemaker site appears intact. ABDOMEN: Bowel sounds present. Soft. No tenderness appreciated. RECTAL: Not performed. EXTREMITIES: No clubbing, cyanosis or edema. No visible redness. The right knee has a surgical scar from the knee surgery which appears intact. SKIN: No rash. NEUROLOGIC: Nonfocal. PSYCHIATRIC: The patient is calm and cooperative. LABORATORY WBC 26.2, platelets 111, 93% neutrophils, 22% bands, hemoglobin 9.4. Creatinine 1.23, BUN 20, sodium 139. Total bilirubin 4.2, AST 193, ALT 227. Hepatitis A, B and C pending. IMPRESSION 1. Sepsis due to gram-negative bacteria. Unclear etiology. Positive blood culture with E. coli in one of four bottles. 2. Elevated liver function tests. Questionable etiology. Possible hepatitis. The patient has normal gallbladder ultrasound and HIDA scan is also normal. The patient appears clinically stable and his temperature is improved indicating that he likely responding to antibiotic treatment. RECOMMENDATIONS 1. Continue piperacillin/tazobactam. 2. Discontinue vancomycin. 3. Follow the blood cultures for sensitivity of the E. Coli. 4. Monitor the clinical status. Thank you for this consultation. The patient's progress and clinical response to antibiotic will be monitored and further recommendations will be given on follow-up if necessary. Laura Nguyễn MD FD/BT /2:09 PM /2:44 PM
--- NOTE | 2017-01-28 15:35 | HHI.PR ---
Subjective Remarks Abdominal pain feels better. HIDA scan ordered today due to persistent elevation in bilirubin level. HIDA scan shows no obstructive pattern. E.coli growth on blood culture. Source not known. Objective Vital Signs Date Time Temp Pulse Resp B/P (MAP) Pulse Ox O2 Delivery O2 Flow Rate FiO2 01/28/17 12:30 99.1 78 22 102/61 (75) 95 01/28/17 09:37 94 01/28/17 08:00 100.2 92 22 93/55 (68) 94 01/28/17 06:14 99.8 88 21 119/56 (77) 92 01/28/17 04:00 100.1 97 20 94/50 (65) 91 01/28/17 00:00 100.0 104 20 96/54 (68) 93 01/27/17 21:51 99.1 101 20 90/55 (67) 92 01/27/17 21:06 01/27/17 19:26 98 20 94 Nasal Cannula 2.00 01/27/17 19:23 101.2 99 20 109/70 (83) 94 Room Air 01/27/17 18:03 72 18 109/68 (82) 97 Room Air 01/27/17 17:58 103.0 95 20 109/56 (73) 97 Nasal Cannula 2.00 01/27/17 17:01 103.3 01/27/17 16:12 97 Nasal Cannula 2.00 01/27/17 16:04 100.0 102 22 137/59 (85) 89 I/O 01/27/17 01/27/17 01/27/17 01/28/17 01/28/17 01/28/17 07:00 15:00 23:00 07:00 15:00 23:00 Intake Total 1100 ml Output Total 600 ml Balance 500 ml Intake IV Total 1100 ml Output Urine Total 600 ml Bladder Scan Volume Amount 139 ml Result Diagram: 01/28/1772501/28/17725 Objective Remarks GENERAL: NAD, A&Ox3 HEAD: Normocephalic. NECK: Supple, trachea midline. No lymphadenopathy. EYES: No scleral icterus. No injection or drainage. CARDIOVASCULAR: Regular rate and rhythm without murmurs, gallops, or rubs. RESPIRATORY: Breath sounds equal bilaterally. No accessory muscle use. GASTROINTESTINAL: Abdomen soft, non-tender, nondistended. MUSCULOSKELETAL: No cyanosis, or edema. SKIN: Warm and dry. NEURO: No focal neurological deficitis. A/P Problem List: (1) Transaminitis ICD Code: R74.0 - Nonspecific elevation of levels of transaminase and lactic acid dehydrogenase [LDH] Status: Acute (2) Sepsis ICD Code: A41.9 - Sepsis, unspecified organism Status: Acute (3) Anemia ICD Code: D64.9 - Anemia, unspecified Status: Acute (4) Acute liver failure ICD Code: K72.00 - Acute and subacute hepatic failure without coma Status: Acute Assessment and Plan Assessment and Plan 87-year-old male admitted secondary to abdominal pain with sepsis, now positive Escherichia coli on blood culture Sepsis severe, SIRS Fevers Leukocytosis Transaminitis Continue to follow CBC Continue Zosyn ID consulted Bladder ultrasound, CT abdomen, and HIDA scan showed no pathology Liver failure, acute Hepatitis Hepatitis panel ordered Lines disease screen ordered Follow liver function studies Macular degeneration Presbycusis BPH Follow clinically DVT prophylaxis SCDs Problem Qualifiers (1) Sepsis: Qualified Codes: A41.9 - Sepsis, unspecified organism (2) Anemia: Qualified Codes: D64.9 - Anemia, unspecified Roel Matos MD Jan 28, 2017 15:35
[2017-01-28 16:27] LABS: HEMOGLOBIN A1a 1.1 %; HEMOGLOBIN A1b 1.5 %; HEMOGLOBIN Ao 85.7 %; HEMOGLOBIN LA1C 1.9 %; HEMOGLOBIN P3 3.7 %
[2017-01-29] VITALS (8 sets, daily range): BP systolic 115–135; BP diastolic 57–82; PULSE 70–80; RESP 16–20; TEMP 96.8–98.3; O2SAT 94–98
[2017-01-29] MEDS: SODIUM CHLOR 0.9% 1000 ML INJ 1,000 ML IV SCH ×2 (01:00→20:52)
[2017-01-29] MEDS: PIPERACIL-TAZO 3.375 GM PREMIX 50 ML IV SCH ×4 (05:01→22:41)
[2017-01-29 09:10] LABS: AUTOMATED NEUTROPHIL # 7.3 TH/MM3 (1.8-7.7); BASOPHIL # 0.1 TH/MM3 (0-0.2); BASOPHIL % 0.9 % (0.0-2.0); EOSINOPHIL # 0.1 TH/MM3 (0-0.4); EOSINOPHIL % 1.4 % (0.0-4.0); HEMATOCRIT 26.7 % (39.0-51.0); HEMO FLAGS AUTO DIFF; LYMPH % 13.3 % (9.0-44.0); LYMPHOCYTE # 1.2 TH/MM3 (1.0-4.8); MEAN CELL VOLUME 110.8 FL (80.0-100.0); MEAN CORPUSCULAR HGB CONC 33.4 % (32.0-36.0); MONO % 5.6 % (0.0-8.0); NEUT % 78.8 % (16.0-70.0); PLATELET COUNT 76 TH/MM3 (150-450); RED BLOOD COUNT 2.41 MIL/MM3 (4.50-5.90); RED CELL DISTRIBUTION WIDTH 28.9 % (11.6-17.2); WHITE BLOOD COUNT 9.2 TH/MM3 (4.0-11.0)
[2017-01-29] MEDS: SODIUM CHLORIDE 0.9% FLUSH 10 ML FLUSH IV FLUSH SCH ×2 (09:35→20:52)
[2017-01-29] MEDS: PANTOPRAZOLE SOD 40 MG DELAYED RELEASE TAB PO SCH (09:35)
[2017-01-29] MEDS: DOCUSATE SODIUM 50 MG/SENNA 8.6 MG TAB PO SCH ×2 (09:36→20:53)
[2017-01-29 09:45] LABS: BANDS 35 % (0-6); BASOPHILS 3 % (0-2); NEUTROPHIL # MANUAL DIFF 7.6 TH/MM3 (1.8-7.7); POLYS (SEG NEUTROPHILS) 48 % (16-70); WBC DIFF SAMPLE 100
[2017-01-29 09:46] LABS: PLATELET ESTIMATE SMEAR LOW (NORMAL); PLATELET MORPHOLOGY NORMAL (NORMAL); SCAN/DIFF FINAL DIFF MANUAL
[2017-01-29 11:22] LABS: ALKALINE PHOSPHATASE 135 U/L (45-117); ALT (GPT) 176 U/L (12-78); ANION GAP 12 MEQ/L (5-15); AST (GOT) 131 U/L (15-37); BLOOD UREA NITROGEN 16 MG/DL (7-18); CHLORIDE 112 MEQ/L (98-107); GLOMERULAR FILTRATION RATE 73 ML/MIN (>89); POTASSIUM 4.5 MEQ/L (3.5-5.1); SODIUM (NA) 138 MEQ/L (136-145); TOTAL BILIRUBIN ADULT 1.9 MG/DL (0.2-1.0)
--- NOTE | 2017-01-29 14:33 | HHI.IDPN ---
Note Infectious Disease Note Patient feels okay. No chills, nausea, abdominal pain or fever. Up in bedside recliner. HIDA scan result noted. Per radiology looks like acute cholecystitis. Patient was brought to the emergency department yesterday evening after an episode of fever and tremors. PAST MEDICAL HISTORY 1. Atrial fibrillation. 2. Benign prostatic hypertrophy. 3. Macular degeneration. 4. Pacemaker implantation April 2014. 5. Right knee replacement. 6. Hernia repair. 7. Vasectomy. 8. Left corneal transplant. ALLERGIES 1. ASPIRIN. 2. OXAPROZIN. ANTIBIOTICS: Piperacillin/tazobactam. FAMILY HISTORY Noncontributory. OBJECTIVE: Vital Signs Date Time Temp Pulse Resp B/P (MAP) Pulse Ox O2 Delivery O2 Flow Rate FiO2 01/29/17 12:00 96.9 72 17 120/82 (95) 95 01/29/17 10:00 80 01/29/17 08:00 96.8 72 16 135/64 (87) 95 01/29/17 04:15 98.3 72 18 115/60 (78) 96 01/29/17 00:00 98.3 79 18 120/57 (78) 98 01/28/17 20:12 98.8 62 19 132/62 (85) 94 01/28/17 20:10 85 01/28/17 17:46 95 21 Laboratory Tests Test 01/29/17 06:00 01/29/17 12:58 White Blood Count 9.2 TH/MM3 Red Blood Count 2.41 MIL/MM3 Hemoglobin 8.9 GM/DL Hematocrit 26.7 % Mean Corpuscular Volume 110.8 FL Mean Corpuscular Hemoglobin 37.0 PG Mean Corpuscular Hemoglobin Concent 33.4 % Red Cell Distribution Width 28.9 % Platelet Count 76 TH/MM3 Mean Platelet Volume 10.1 FL Neutrophils (%) (Auto) 78.8 % Lymphocytes (%) (Auto) 13.3 % Monocytes (%) (Auto) 5.6 % Eosinophils (%) (Auto) 1.4 % Basophils (%) (Auto) 0.9 % Neutrophils # (Auto) 7.3 TH/MM3 Lymphocytes # (Auto) 1.2 TH/MM3 Monocytes # (Auto) 0.5 TH/MM3 Eosinophils # (Auto) 0.1 TH/MM3 Basophils # (Auto) 0.1 TH/MM3 CBC Comment AUTO DIFF Differential Total Cells Counted 100 Neutrophils % (Manual) 48 % Band Neutrophils % 35 % Lymphocytes % 11 % Monocytes % 3 % Basophils % 3 % Neutrophils # (Manual) 7.6 TH/MM3 Differential Comment FINAL DIFF MANUAL Platelet Estimate LOW Platelet Morphology Comment NORMAL Hematology Comments Blood Urea Nitrogen 16 MG/DL Creatinine 0.98 MG/DL Random Glucose 77 MG/DL Total Protein 6.5 GM/DL Albumin 2.9 GM/DL Calcium Level 8.0 MG/DL Alkaline Phosphatase 135 U/L Aspartate Amino Transf (AST/SGOT) 131 U/L Alanine Aminotransferase (ALT/SGPT) 176 U/L Total Bilirubin 1.9 MG/DL Sodium Level 138 MEQ/L Potassium Level 4.5 MEQ/L Chloride Level 112 MEQ/L Carbon Dioxide Level 14.0 MEQ/L Anion Gap 12 MEQ/L Estimat Glomerular Filtration Rate 73 ML/MIN IMAGING: Hepatobiliary Scan Nuclear Medicine 01/28/17 0000 Signed Impressions: Service Date/Time: Saturday, January 28, 2017 10:09 - CONCLUSION: Normal examination. John Velez Jr., MD ADDENDUM: COMPARISON: US ABDOMEN - GALLBLADDER, January 27, 2017, 17:41. Delayed imaging was performed at 23 hours. An anterior planar view of the abdomen and pelvis demonstrates activity throughout the colon. No definite activity seen within the gallbladder. On the original dynamic acquisition, there was a changing pattern of uptake superimposed upon the common hepatic duct which mimicked the intensity of uptake in the distal common bile duct suggesting that the activity seen on the original dynamics study is dilated common duct activity and not gallbladder activity ( CT images demonstrated the gallbladder to be farther lateral and inferior). Therefore, overall impression is that there is nonvisualization of the gallbladder up to 24 hours. The findings would be suspicious cystic duct obstruction (acute cholecystitis). John Vee MD Chest X-Ray 01/27/17 1607 Signed Impressions: Service Date/Time: Friday, January 27, 2017 16:18 - CONCLUSION: 1. Mild basal atelectasis. No effusion or pneumothorax. Mejia Sewell MD Gall Bladder Ultrasound 01/27/17 0000 Signed Impressions: Service Date/Time: Friday, January 27, 2017 17:41 - CONCLUSION: Normal examination. John Velez Jr., MD Abdomen/Pelvis CT 01/27/17 0000 Signed Impressions: Service Date/Time: Friday, January 27, 2017 19:09 - CONCLUSION: 1. No acute findings within the abdomen or pelvis. Severe diverticulosis without evidence for diverticulitis. 2. Mild biliary ductal dilatation without evidence for calcified gallstones. 3. Dependent atelectasis, scarring at the lung bases with calcified granulomata. Mejia Sewell MD PHYSICAL EXAMINATION GENERAL: No acute distress. He appears well-nourished. HEENT: The head is atraumatic. Extraocular movements grossly intact. Pupils reactive to light. No icterus. Oropharynx no visible lesions. NECK: Supple without adenopathy. LUNGS: Clear breath sounds. HEART: Regular rate and rhythm. No murmurs, rubs or gallops. The pacemaker site appears intact. ABDOMEN: Bowel sounds present. Soft. No tenderness appreciated. EXTREMITIES: No clubbing, cyanosis or edema. No visible redness. The right knee has a surgical scar from the knee surgery which appears intact. SKIN: No rash. NEUROLOGIC: Nonfocal. PSYCHIATRIC: The patient is calm and cooperative. IMPRESSION 1. Sepsis due to gram-negative bacteria. Acute cholecystitis. Positive blood culture with E. coli in one of four bottles. Improved temp, WBC and bilirubin. 2. Elevated liver function tests. The patient appears clinically stable and his temperature is improved indicating that he likely responding to antibiotic treatment. RECOMMENDATIONS 1. Continue piperacillin/tazobactam. 2. Follow the blood cultures for sensitivity of the E. Coli. 3. Monitor the clinical status. If he remains afebrile 48 hours and the E. coli is sensitive to oral antibiotics we can plan on switching to oral with a 7 day total course of antibiotics on discharge or antibiotics can be stopped after surgery if cholecystectomy is planned. Abner Arias MD Jan 29, 2017 14:33
--- NOTE | 2017-01-29 15:54 | HHI.PR ---
Subjective Remarks Patient is on antibiotics and has improvement in bilirubin and elevated LFTs and fever and abdominal symptoms. However, a continuation part of the HIDA scan this morning results in a suspicion for acute cholecystitis and possible biliary obstruction. Objective Vital Signs Date Time Temp Pulse Resp B/P (MAP) Pulse Ox O2 Delivery O2 Flow Rate FiO2 01/29/17 12:00 96.9 72 17 120/82 (95) 95 01/29/17 10:00 80 01/29/17 08:00 96.8 72 16 135/64 (87) 95 01/29/17 04:15 98.3 72 18 115/60 (78) 96 01/29/17 00:00 98.3 79 18 120/57 (78) 98 01/28/17 20:12 98.8 62 19 132/62 (85) 94 01/28/17 20:10 85 01/28/17 17:46 95 21 I/O 01/28/17 01/28/17 01/28/17 01/29/17 01/29/17 01/29/17 07:00 15:00 23:00 07:00 15:00 23:00 Intake Total 1100 ml 50 ml 1050 ml 100 ml Output Total 600 ml Balance 500 ml 50 ml 1050 ml 100 ml Intake IV Total 1100 ml 50 ml 1050 ml 100 ml Output Urine Total 600 ml Bladder Scan Volume Amount 139 ml # Voids 2 Result Diagram: 01/29/17 0600 01/29/17 0600 Objective Remarks GENERAL: NAD, A&Ox3 HEAD: Normocephalic. NECK: Supple, trachea midline. No lymphadenopathy. EYES: No scleral icterus. No injection or drainage. CARDIOVASCULAR: Regular rate and rhythm without murmurs, gallops, or rubs. RESPIRATORY: Breath sounds equal bilaterally. No accessory muscle use. GASTROINTESTINAL: Abdomen soft, non-tender, nondistended. MUSCULOSKELETAL: No cyanosis, or edema. SKIN: Warm and dry. NEURO: No focal neurological deficitis. A/P Problem List: (1) Transaminitis ICD Code: R74.0 - Nonspecific elevation of levels of transaminase and lactic acid dehydrogenase [LDH] Status: Acute (2) Sepsis ICD Code: A41.9 - Sepsis, unspecified organism Status: Acute (3) Anemia ICD Code: D64.9 - Anemia, unspecified Status: Acute (4) Acute liver failure ICD Code: K72.00 - Acute and subacute hepatic failure without coma Status: Acute Assessment and Plan Assessment and Plan 87-year-old male admitted secondary to abdominal pain with sepsis, now positive Escherichia coli on blood culture. Possible biliary obstruction and acute cholecystitis. Surgery and GI are consulted. Labs reviewed. CBC shows improvement in white blood cell count, bilirubin and LFTs are improved, no further fevers at this point. Labs ordered for tomorrow. Sepsis severe, SIRS Fevers Leukocytosis Transaminitis Continue to follow CBC Continue Zosyn ID consulted Bladder ultrasound, CT abdomen, and HIDA scan showed no pathology Liver failure, acute Hepatitis Hepatitis panel Lines disease screen ordered Follow liver function studies Macular degeneration Presbycusis BPH Follow clinically DVT prophylaxis SCDs Problem Qualifiers (1) Sepsis: Qualified Codes: A41.9 - Sepsis, unspecified organism (2) Anemia: Qualified Codes: D64.9 - Anemia, unspecified Roel Matos MD Jan 29, 2017 15:54
[2017-01-30] VITALS: BP 116/63; PULSE 72; RESP 20; TEMP 97; O2SAT 93
[2017-01-30] MEDS: PIPERACIL-TAZO 3.375 GM PREMIX 50 ML IV SCH ×4 (05:20→21:55)
[2017-01-30] MEDS: SODIUM CHLOR 0.9% 1000 ML INJ 1,000 ML IV SCH ×2 (05:23→17:44)
[2017-01-30 08:00] VITALS: BP 134/63; PULSE 68; RESP 15; TEMP 97.8; O2SAT 96
[2017-01-30 08:27] LABS: AUTOMATED NEUTROPHIL # 3.5 TH/MM3 (1.8-7.7); BASOPHIL # 0.1 TH/MM3 (0-0.2); BASOPHIL % 1.5 % (0.0-2.0); EOSINOPHIL # 0.3 TH/MM3 (0-0.4); HEMATOCRIT 26.1 % (39.0-51.0); LYMPH % 24.1 % (9.0-44.0); LYMPHOCYTE # 1.3 TH/MM3 (1.0-4.8); MEAN CELL VOLUME 111.4 FL (80.0-100.0); MEAN CORPUSCULAR HEMOGLOBIN 36.7 PG (27.0-34.0); MEAN CORPUSCULAR HGB CONC 32.9 % (32.0-36.0); MONO % 6.7 % (0.0-8.0); NEUT % 62.7 % (16.0-70.0); PLATELET COUNT 105 TH/MM3 (150-450); RED BLOOD COUNT 2.34 MIL/MM3 (4.50-5.90); WHITE BLOOD COUNT 5.5 TH/MM3 (4.0-11.0)
[2017-01-30 08:30] LABS: HEMO FLAGS AUTO DIFF
[2017-01-30] MEDS: DOCUSATE SODIUM 50 MG/SENNA 8.6 MG TAB PO SCH ×2 (09:00→21:00)
[2017-01-30 09:20] LABS: ANION GAP 7 MEQ/L (5-15); AST (GOT) 78 U/L (15-37); BICARBONATE 23.6 MEQ/L (21.0-32.0); BLOOD UREA NITROGEN 8 MG/DL (7-18); CHLORIDE 108 MEQ/L (98-107); GLOMERULAR FILTRATION RATE 78 ML/MIN (>89); POTASSIUM 3.8 MEQ/L (3.5-5.1); SODIUM (NA) 139 MEQ/L (136-145)
[2017-01-30 09:21] LABS: ALT (GPT) 120 U/L (12-78)
[2017-01-30 09:23] LABS: ALKALINE PHOSPHATASE 138 U/L (45-117); TOTAL BILIRUBIN ADULT 1.3 MG/DL (0.2-1.0)
[2017-01-30] MEDS: PANTOPRAZOLE SOD 40 MG DELAYED RELEASE TAB PO SCH (10:03)
[2017-01-30] MEDS: SODIUM CHLORIDE 0.9% FLUSH 10 ML FLUSH IV FLUSH SCH ×2 (10:03→21:00)
[2017-01-30 10:37] LABS: BANDS 31 % (0-6); BASOPHILS 1 % (0-2); EOSINOPHILS 4 % (0-4); PLATELET ESTIMATE SMEAR LOW (NORMAL); PLATELET MORPHOLOGY NORMAL (NORMAL); POLYS (SEG NEUTROPHILS) 42 % (16-70); SCAN/DIFF FINAL DIFF MANUAL; WBC DIFF SAMPLE 100
[2017-01-30 10:38] LABS: TEARDROP RBCS 1+ (NORMAL)
[2017-01-30 12:00] VITALS: BP 128/76; PULSE 69; RESP 17; TEMP 97.5; O2SAT 94
--- NOTE | 2017-01-30 12:46 | HHI.IDPN ---
Note Infectious Disease Note Patient feels good. No chills, nausea, abdominal pain or fever. Had soft stool BM today. HIDA scan result noted. Per radiology looks like acute cholecystitis. Patient was brought to the emergency department yesterday evening after an episode of fever and tremors. PAST MEDICAL HISTORY 1. Atrial fibrillation. 2. Benign prostatic hypertrophy. 3. Macular degeneration. 4. Pacemaker implantation April 2014. 5. Right knee replacement. 6. Hernia repair. 7. Vasectomy. 8. Left corneal transplant. ALLERGIES 1. ASPIRIN. 2. OXAPROZIN. ANTIBIOTICS: Piperacillin/tazobactam. FAMILY HISTORY Noncontributory. OBJECTIVE: Vital Signs Date Time Temp Pulse Resp B/P (MAP) Pulse Ox O2 Delivery O2 Flow Rate FiO2 01/30/17 12:00 97.5 69 17 128/76 (93) 94 01/30/17 08:00 97.8 68 15 134/63 (86) 96 01/30/17 00:00 97.0 72 20 116/63 (80) 93 01/29/17 20:00 71 01/29/17 20:00 97.2 72 20 120/65 (83) 96 01/29/17 17:12 94 21 01/29/17 16:00 97.3 70 16 128/59 (82) 94 Laboratory Tests Test 01/29/17 06:00 01/30/17 07:04 White Blood Count 9.2 TH/MM3 5.5 TH/MM3 Red Blood Count 2.41 MIL/MM3 2.34 MIL/MM3 Hemoglobin 8.9 GM/DL 8.6 GM/DL Hematocrit 26.7 % 26.1 % Mean Corpuscular Volume 110.8 FL 111.4 FL Mean Corpuscular Hemoglobin 37.0 PG 36.7 PG Mean Corpuscular Hemoglobin Concent 33.4 % 32.9 % Red Cell Distribution Width 28.9 % 28.0 % Platelet Count 76 TH/MM3 105 TH/MM3 Mean Platelet Volume 10.1 FL 9.7 FL Neutrophils (%) (Auto) 78.8 % 62.7 % Lymphocytes (%) (Auto) 13.3 % 24.1 % Monocytes (%) (Auto) 5.6 % 6.7 % Eosinophils (%) (Auto) 1.4 % 5.0 % Basophils (%) (Auto) 0.9 % 1.5 % Neutrophils # (Auto) 7.3 TH/MM3 3.5 TH/MM3 Lymphocytes # (Auto) 1.2 TH/MM3 1.3 TH/MM3 Monocytes # (Auto) 0.5 TH/MM3 0.4 TH/MM3 Eosinophils # (Auto) 0.1 TH/MM3 0.3 TH/MM3 Basophils # (Auto) 0.1 TH/MM3 0.1 TH/MM3 CBC Comment AUTO DIFF AUTO DIFF Differential Total Cells Counted 100 100 Neutrophils % (Manual) 48 % 42 % Band Neutrophils % 35 % 31 % Lymphocytes % 11 % 19 % Monocytes % 3 % 3 % Basophils % 3 % 1 % Neutrophils # (Manual) 7.6 TH/MM3 4.0 TH/MM3 Differential Comment FINAL DIFF MANUAL FINAL DIFF MANUAL Platelet Estimate LOW LOW Platelet Morphology Comment NORMAL NORMAL Hematology Comments Eosinophils % 4 % Tear Drop Cells 1+ Laboratory Tests Test 01/29/17 06:00 01/30/17 07:04 Blood Urea Nitrogen 16 MG/DL 8 MG/DL Creatinine 0.98 MG/DL 0.92 MG/DL Random Glucose 77 MG/DL 107 MG/DL Total Protein 6.5 GM/DL 6.4 GM/DL Albumin 2.9 GM/DL 2.9 GM/DL Calcium Level 8.0 MG/DL 8.4 MG/DL Alkaline Phosphatase 135 U/L 138 U/L Aspartate Amino Transf (AST/SGOT) 131 U/L 78 U/L Alanine Aminotransferase (ALT/SGPT) 176 U/L 120 U/L Total Bilirubin 1.9 MG/DL 1.3 MG/DL Sodium Level 138 MEQ/L 139 MEQ/L Potassium Level 4.5 MEQ/L 3.8 MEQ/L Chloride Level 112 MEQ/L 108 MEQ/L Carbon Dioxide Level 14.0 MEQ/L 23.6 MEQ/L Anion Gap 12 MEQ/L 7 MEQ/L Estimat Glomerular Filtration Rate 73 ML/MIN 78 ML/MIN Microbiology Date/Time Source Procedure Growth Status 01/27/17 16:10 Blood Peripheral Aerobic Blood Culture - Preliminary NO GROWTH IN 3 DAYS Resulted 01/27/17 16:10 Anaerobic Blood Culture - Final Escherichia Coli Resulted 01/27/17 16:05 Blood Peripheral Aerobic Blood Culture - Preliminary NO GROWTH IN 3 DAYS Resulted 01/27/17 16:05 Blood Peripheral Anaerobic Blood Culture - Preliminary NO GROWTH IN 3 DAYS Resulted 01/27/17 16:57 Nasal Aspirate Influenza Types A,B Antigen ([facility]) - Final NEGATIVE FOR FLU A AND B ANTIGEN.... Complete IMAGING: Hepatobiliary Scan Nuclear Medicine 01/28/17 0000 Signed Impressions: Service Date/Time: Saturday, January 28, 2017 10:09 - CONCLUSION: Normal examination. John Velez Jr., MD ADDENDUM: COMPARISON: US ABDOMEN - GALLBLADDER, January 27, 2017, 17:41. Delayed imaging was performed at 23 hours. An anterior planar view of the abdomen and pelvis demonstrates activity throughout the colon. No definite activity seen within the gallbladder. On the original dynamic acquisition, there was a changing pattern of uptake superimposed upon the common hepatic duct which mimicked the intensity of uptake in the distal common bile duct suggesting that the activity seen on the original dynamics study is dilated common duct activity and not gallbladder activity ( CT images demonstrated the gallbladder to be farther lateral and inferior). Therefore, overall impression is that there is nonvisualization of the gallbladder up to 24 hours. The findings would be suspicious cystic duct obstruction (acute cholecystitis). John Vee MD Chest X-Ray 01/27/17 1607 Signed Impressions: Service Date/Time: Friday, January 27, 2017 16:18 - CONCLUSION: 1. Mild basal atelectasis. No effusion or pneumothorax. Mejia Sewell MD Gall Bladder Ultrasound 01/27/17 0000 Signed Impressions: Service Date/Time: Friday, January 27, 2017 17:41 - CONCLUSION: Normal examination. John Velez Jr., MD Abdomen/Pelvis CT 01/27/17 0000 Signed Impressions: Service Date/Time: Friday, January 27, 2017 19:09 - CONCLUSION: 1. No acute findings within the abdomen or pelvis. Severe diverticulosis without evidence for diverticulitis. 2. Mild biliary ductal dilatation without evidence for calcified gallstones. 3. Dependent atelectasis, scarring at the lung bases with calcified granulomata. Mejia Sewell MD PHYSICAL EXAMINATION GENERAL: No acute distress. He appears well-nourished. HEENT: No icterus. Oropharynx no visible lesions. NECK: Supple without adenopathy. LUNGS: Clear breath sounds. HEART: Regular rate and rhythm. No murmurs, rubs or gallops. The pacemaker site is intact. ABDOMEN: Bowel sounds present. Soft. No tenderness. EXTREMITIES: No clubbing, cyanosis or edema. The right knee has a surgical scar from the knee surgery which appears intact. SKIN: No rash. NEUROLOGIC: Nonfocal. PSYCHIATRIC: The patient is calm and cooperative. IMPRESSION 1. Sepsis due to e. coli. Acute cholecystitis. Positive blood culture with E. coli in one of four bottles. Improved temp, WBC and bilirubin. 2. Elevated liver function tests. RECOMMENDATIONS 1. Continue piperacillin/tazobactam. 2. Monitor the clinical status. If he remains afebrile 48 hours and the E. coli is sensitive to oral antibiotics we can plan on switching to PO cipro x 3 more days. Abner Arias MD Jan 30, 2017 12:46
[2017-01-30 16:00] VITALS: BP 119/62; PULSE 67; RESP 18; TEMP 97.7; O2SAT 97
--- NOTE | 2017-01-30 17:37 | HHI.PR ---
Subjective Remarks No immediate plans for surgery or EGD. Patient continues to improve clinically and based on labs with current antibiotic treatments. Diet will be advanced. Objective Vital Signs Date Time Temp Pulse Resp B/P (MAP) Pulse Ox O2 Delivery O2 Flow Rate FiO2 01/30/17 16:00 97.7 67 18 119/62 (81) 97 01/30/17 12:00 97.5 69 17 128/76 (93) 94 01/30/17 08:00 97.8 68 15 134/63 (86) 96 01/30/17 00:00 97.0 72 20 116/63 (80) 93 01/29/17 20:00 71 01/29/17 20:00 97.2 72 20 120/65 (83) 96 I/O 01/29/17 01/29/17 01/29/17 01/30/17 01/30/17 01/30/17 07:00 15:00 23:00 07:00 15:00 23:00 Intake Total 100 ml 50 ml 1430 ml 1100 ml Output Total 1230 ml 800 ml Balance 100 ml 50 ml 200 ml 1100 ml -800 ml Intake Oral 380 ml IV Total 100 ml 50 ml 1050 ml 1100 ml Output Urine Total 1230 ml 800 ml # Bowel Movements 0 0 Result Diagram: 01/30/1770301/30/17703 Objective Remarks GENERAL: NAD, A&Ox3 HEAD: Normocephalic. NECK: Supple, trachea midline. No lymphadenopathy. EYES: No scleral icterus. No injection or drainage. CARDIOVASCULAR: Regular rate and rhythm without murmurs, gallops, or rubs. RESPIRATORY: Breath sounds equal bilaterally. No accessory muscle use. GASTROINTESTINAL: Abdomen soft, non-tender, nondistended. MUSCULOSKELETAL: No cyanosis, or edema. SKIN: Warm and dry. NEURO: No focal neurological deficitis. A/P Problem List: (1) Transaminitis ICD Code: R74.0 - Nonspecific elevation of levels of transaminase and lactic acid dehydrogenase [LDH] Status: Acute (2) Sepsis ICD Code: A41.9 - Sepsis, unspecified organism Status: Acute (3) Anemia ICD Code: D64.9 - Anemia, unspecified Status: Acute (4) Acute liver failure ICD Code: K72.00 - Acute and subacute hepatic failure without coma Status: Acute Assessment and Plan Assessment and Plan 87-year-old male admitted secondary to abdominal pain with sepsis, now positive Escherichia coli on blood culture. Continue antibiotics. Advance diet. Labs reviewed and shown improvement. Labs ordered for further monitoring. Sepsis severe, SIRS Fevers Leukocytosis Transaminitis Continue to follow CBC Continue Zosyn ID consulted Bladder ultrasound, CT abdomen, and HIDA scan showed no pathology Liver failure, acute Hepatitis Hepatitis panel Lines disease screen ordered Follow liver function studies Macular degeneration Presbycusis BPH Follow clinically DVT prophylaxis SCDs Problem Qualifiers (1) Sepsis: Qualified Codes: A41.9 - Sepsis, unspecified organism (2) Anemia: Qualified Codes: D64.9 - Anemia, unspecified Roel Matos MD Jan 30, 2017 17:36
[2017-01-30 20:00] VITALS: BP 103/56; PULSE 66; RESP 17; TEMP 97.4; O2SAT 95
--- NOTE | 2017-01-30 20:40 | MB ---
cc: WILLIAM LOVETT MD DATE OF CONSULTATION 01/30/2017 REASON FOR CONSULTATION Rule out cholecystitis. HISTORY OF PRESENT ILLNESS The patient is an 87-year-old male who presents with multiple medical issues and shaking fevers and chills. The patient was noted to have these chills for a couple of days that continued to get worse. The patient was concerned and the brought the patient to the emergency department for further evaluation. He had further workup including blood cultures showing bacteremia, leukocytosis of 14.6, elevated AST 271, ALT 192, alkaline phosphatase 169 and T bili of 3.6. Lipase of 390. He had further workup with CT scan, no acute findings, did show diverticulosis. He had a gallbladder ultrasound without thickening, fluid or stones. He was worked up with a HIDA scan, this demonstrated nonvisualization of the gallbladder, suspicious for cholecystitis. Surgery was consulted for further evaluation. On my exam the patient confirms the same. He states that he had these relatively high fevers with shaking chills. He really denied significant abdominal pain although did note some distant history of left-sided upper quadrant pain that was very mild and self-limiting. He said he never quite felt like this however and noted rigors with chills initially but has improved since he has been in the hospital on IV antibiotics. He denies any other sick contacts. PAST MEDICAL HISTORY Atrial fibrillation, BPH. Macular degeneration, arthritis. PAST SURGICAL HISTORY Pacemaker 2015, hernia repair, right knee replacement, corneal transplant, vasectomy. ALLERGIES ASPIRIN. OXAPROZIN. CURRENT MEDICATIONS See EMR. FAMILY HISTORY Denies diabetes, hypertension. SOCIAL HISTORY Denies smoking, EtOH or IVDA. REVIEW OF SYSTEMS GENERAL: Complains of fevers, chills. HEENT: Denies eye pain, ear pain. NECK: Denies swelling or pain. LUNGS: Denies cough or wheeze. HEART: Denies palpitations, chest pain. ABDOMEN: Denies abdominal pain or nausea. EXTREMITIES: Denies arthralgia, myalgias. : Denies dysuria, hematuria. ENDOCRINE: Denies polyuria, polydipsia. PHYSICAL EXAMINATION GENERAL: The patient no acute distress. VITAL SIGNS: Current temperature 97.8, pulse 68, respirations 15, blood pressure 134/63, saturation 96% on room air. HEENT: Pupils equal, round, reactive. NECK: Supple. Trachea midline. LUNGS: Bilateral expansion. Clear. HEART: S1-S2, pacer. ABDOMEN: Soft, nontender, nondistended. Jaundiced. EXTREMITIES: Warm, well-perfused. BACK: Normal curvature. PSYCH: Good insight, good judgment. Normal mood. LABORATORY AND DIAGNOSTIC DATA WBC is 5.5, hemoglobin 8.6, hematocrit 26.1, platelets 105. The sodium is 139, potassium 3.8, BUN is 8, creatinine 0.9, T-bili 1.3, AST 78, ALT 120, alkaline phosphatase 138, lipase 76, INR 1. IMAGING STUDIES CT reviewed by myself. No significant acute abnormality. Diverticulosis. Gallbladder ultrasound reviewed by myself. No thickening, pericholecystic fluid or gallstones. HIDA scan delayed ___ 24 hours suspicious for cystic duct obstruction. ASSESSMENT The patient is an 87-year-old male who presents with shaking fevers with rigors and chills and jaundice with transaminitis. PLAN After full clinical, radiologic, laboratory workup the patient with the above main issues. At this point I have a low suspicion of acute cholecystitis. One, the patient has no pericholecystic fluid, wall thickening or gallbladder sludge or stones noted on the gallbladder ultrasound or CT scan. Further, the patient presents with transaminitis and an elevated total bilirubin. My suspicion would be slightly stronger for some sort of common bile duct etiology. At this point I will attempt nonoperative management. The patient will likely benefit for further evaluation. Could this be an issue with the common bile duct such as a mass not seen on ultrasound or CT scan. Consider MRI, however, the patient may not be able to undergo this due to pacemaker present. Also, will [facility], may benefit from possible ERCP with brushings or EUS to further delineate. I will continue to follow. If other workup is deemed negative will consider revisiting the gallbladder as a possible etiology to the bacteremia. Thank you for the consultation. MD RONNY Higgins/NICHOLE /5:13 PM /8:17 PM
[2017-01-31] VITALS: BP 100/60; PULSE 62; RESP 17; TEMP 97; O2SAT 95
[2017-01-31 04:00] VITALS: BP 108/62; PULSE 70; RESP 17; TEMP 96.8; O2SAT 95
[2017-01-31] MEDS: PIPERACIL-TAZO 3.375 GM PREMIX 50 ML IV SCH ×3 (05:31→17:52)
[2017-01-31] MEDS: SODIUM CHLOR 0.9% 1000 ML INJ 1,000 ML IV SCH ×2 (05:31→12:26)
[2017-01-31 08:00] VITALS: BP 131/62; PULSE 67; RESP 16; TEMP 95.8; O2SAT 94
[2017-01-31] MEDS: DOCUSATE SODIUM 50 MG/SENNA 8.6 MG TAB PO SCH ×2 (09:00→21:00)
[2017-01-31] MEDS: PANTOPRAZOLE SOD 40 MG DELAYED RELEASE TAB PO SCH (09:00)
[2017-01-31 09:14] LABS: BASOPHIL # 0.1 TH/MM3 (0-0.2); BASOPHIL % 1.3 % (0.0-2.0); EOSINOPHIL # 0.3 TH/MM3 (0-0.4); EOSINOPHIL % 6.6 % (0.0-4.0); HEMATOCRIT 24.8 % (39.0-51.0); LYMPH % 34.8 % (9.0-44.0); LYMPHOCYTE # 1.5 TH/MM3 (1.0-4.8); MEAN CELL VOLUME 109.8 FL (80.0-100.0); MEAN CORPUSCULAR HEMOGLOBIN 36.9 PG (27.0-34.0); MEAN CORPUSCULAR HGB CONC 33.6 % (32.0-36.0); MONO % 9.8 % (0.0-8.0); NEUT % 47.5 % (16.0-70.0); PLATELET COUNT 103 TH/MM3 (150-450); RED BLOOD COUNT 2.26 MIL/MM3 (4.50-5.90); RED CELL DISTRIBUTION WIDTH 27.7 % (11.6-17.2); WHITE BLOOD COUNT 4.3 TH/MM3 (4.0-11.0)
[2017-01-31 09:15] LABS: HEMO FLAGS AUTO DIFF
[2017-01-31 10:20] LABS: BANDS 9 % (0-6); BASOPHILS 1 % (0-2); EOSINOPHILS 3 % (0-4); NEUTROPHIL # MANUAL DIFF 2.6 TH/MM3 (1.8-7.7); POLYS (SEG NEUTROPHILS) 51 % (16-70); WBC DIFF SAMPLE 100
[2017-01-31 10:21] LABS: OVALOCYTES 1+ (NORMAL); PLATELET ESTIMATE SMEAR LOW (NORMAL); PLATELET MORPHOLOGY NORMAL (NORMAL); SCAN/DIFF FINAL DIFF MANUAL
[2017-01-31 10:22] LABS: TEARDROP RBCS 1+ (NORMAL)
[2017-01-31] MEDS: SODIUM CHLORIDE 0.9% FLUSH 10 ML FLUSH IV FLUSH SCH ×2 (11:42→21:49)
[2017-01-31 12:00] VITALS: BP 120/59; PULSE 70; RESP 16; TEMP 95.4; O2SAT 97
--- NOTE | 2017-01-31 12:02 | PD.CONS ---
HPI History of Present Illness This is a 87 year old male who presented to the emergency room for evaluation of rigors and high fever. He reports that his symptoms began last Saturday. He had the sudden onset of fever, chills, and rigors. Initially he did have some discomfort in his left upper quadrant that radiated to his epigastric area, that he described as a dull ache. He reports that that quickly subsided and that his main complaint was the uncontrollable shaking. In the ER he was noted to have an elevated temperature of 103.3. He was also noted to have leukocytosis and elevated LFTs with total bilirubin 3.6, AST 271, ALT 192, alkaline phosphatase 169. CT scan abdomen and pelvis with contrast (01/27/17)-- -> no acute findings within the abdomen or pelvis. Severe diverticulosis without evidence for diverticulitis. Mild biliary ductal dilatation without evidence for calcified gallstones. Dependent atelectasis, scarring at the lung bases with calcified granulomata. US GB (01/27/17)---> normal examination with no gallstones, wall thickening, or pericholecystic fluid. HIDA Scan with delayed images (01/28/17)---> nonvisualization of the gallbladder up to 24 hours , suspicious for cystic duct obstruction. Blood cultures were positive for Escherichia coli. He was started on Zosyn and evaluated by general surgery, who has a low suspicion of acute cholecystitis and suspects this may be more of CBD etiology. GI was consulted for further evaluation. The patient is sitting up in the chair in no distress. He is been afebrile. He denies any nausea, vomiting, abdominal pain, diarrhea, bloating. He is tolerating his diet. He has a history of a pacemaker and is unable to have an MRI. Given his bacteremia and abnormal LFTs and dilated CBD, and the fact that he cannot undergo further evaluation with MRCP, we discussed further evaluation with ERCP. Pt is agreeable. (Loan Da Silva) PFSH Past Medical History Macular degeneration BPH Mild PVD Atrial fibrillation Atrioventricular block Past Surgical History Right knee replacement Right hip ORIF Permanent pacemaker dual chamber, 2014 Double hernia repair Vasectomy Bilateral corneal transplant (Lona Da Silva) Coded Allergies: aspirin (Unverified Allergy, Severe, 11/20/16) oxaprozin (Unverified Allergy, Severe, BRUISES, 11/20/16) Medications Allergies Coded Allergies Type Severity Reaction Last Updated Verified aspirin Allergy Severe 11/20/16 No oxaprozin Allergy Severe BRUISES 11/20/16 No Active Scripts Medications Dose Route/Sig Max Daily Dose Days Date Category [Atarax] 30 Mg PO DAILY 01/27/17 Reported Family History Father history of cardiac arrest Brother has heart disease Social History Previous alcohol use Former smoker quit 1993 Denies illicit drug use (Loan Da Silva) Review of Systems Constitutional: COMPLAINS OF: Fever, Chills, DENIES: Weight loss, Change in appetite Respiratory: DENIES: Cough Cardiovascular: DENIES: Chest pain Gastrointestinal: COMPLAINS OF: Abdominal pain (on Saturday, none currently), DENIES: Constipation, Diarrhea, Nausea, Vomiting, Swelling of Abdomen, Heartburn Integumentary: DENIES: Abnormal pigmentation Neurologic: DENIES: Headache Psychiatric: DENIES: Confusion (Loan Da Silva) GI Exam Vitals I&O Vital Signs Date Time Temp Pulse Resp B/P (MAP) Pulse Ox O2 Delivery O2 Flow Rate FiO2 01/31/17 08:00 95.8 67 16 131/62 (85) 94 01/31/17 04:00 96.8 70 17 108/62 (77) 95 01/31/17 00:00 97.0 62 17 100/60 (73) 95 01/30/17 20:00 97.4 66 17 103/56 (72) 95 01/30/17 16:00 97.7 67 18 119/62 (81) 97 01/30/17 12:00 97.5 69 17 128/76 (93) 94 I/O 01/30/17 01/30/17 01/30/17 01/31/17 01/31/17 01/31/17 07:00 15:00 23:00 07:00 15:00 23:00 Intake Total 1100 ml 220 ml 1090 ml Output Total 800 ml 325 ml Balance 1100 ml -800 ml -105 ml 1090 ml Intake Oral 120 ml 240 ml IV Total 1100 ml 100 ml 850 ml Output Urine Total 800 ml 325 ml # Voids 2 # Bowel Movements 0 0 Imaging Last Impressions Hepatobiliary Scan Nuclear Medicine 01/28/17 0000 Signed Impressions: Service Date/Time: Saturday, January 28, 2017 10:09 - CONCLUSION: Normal examination. John Velez Jr., MD ADDENDUM: COMPARISON: US ABDOMEN - GALLBLADDER, January 27, 2017, 17:41. Delayed imaging was performed at 23 hours. An anterior planar view of the abdomen and pelvis demonstrates activity throughout the colon. No definite activity seen within the gallbladder. On the original dynamic acquisition, there was a changing pattern of uptake superimposed upon the common hepatic duct which mimicked the intensity of uptake in the distal common bile duct suggesting that the activity seen on the original dynamics study is dilated common duct activity and not gallbladder activity ( CT images demonstrated the gallbladder to be farther lateral and inferior). Therefore, overall impression is that there is nonvisualization of the gallbladder up to 24 hours. The findings would be suspicious cystic duct obstruction (acute cholecystitis). John Vee MD Chest X-Ray 01/27/17 1607 Signed Impressions: Service Date/Time: Friday, January 27, 2017 16:18 - CONCLUSION: 1. Mild basal atelectasis. No effusion or pneumothorax. Mejia Sewell MD Gall Bladder Ultrasound 01/27/17 0000 Signed Impressions: Service Date/Time: Friday, January 27, 2017 17:41 - CONCLUSION: Normal examination. John Velez Jr., MD Abdomen/Pelvis CT 01/27/17 0000 Signed Impressions: Service Date/Time: Friday, January 27, 2017 19:09 - CONCLUSION: 1. No acute findings within the abdomen or pelvis. Severe diverticulosis without evidence for diverticulitis. 2. Mild biliary ductal dilatation without evidence for calcified gallstones. 3. Dependent atelectasis, scarring at the lung bases with calcified granulomata. Mejia Sewell MD Laboratory Test 01/30/17 14:59 01/31/17 07:08 White Blood Count 4.3 TH/MM3 Red Blood Count 2.26 MIL/MM3 Hemoglobin 8.3 GM/DL Hematocrit 24.8 % Mean Corpuscular Volume 109.8 FL Mean Corpuscular Hemoglobin 36.9 PG Mean Corpuscular Hemoglobin Concent 33.6 % Red Cell Distribution Width 27.7 % Platelet Count 103 TH/MM3 Mean Platelet Volume 9.1 FL Neutrophils (%) (Auto) 47.5 % Lymphocytes (%) (Auto) 34.8 % Monocytes (%) (Auto) 9.8 % Eosinophils (%) (Auto) 6.6 % Basophils (%) (Auto) 1.3 % Neutrophils # (Auto) 2.0 TH/MM3 Lymphocytes # (Auto) 1.5 TH/MM3 Monocytes # (Auto) 0.4 TH/MM3 Eosinophils # (Auto) 0.3 TH/MM3 Basophils # (Auto) 0.1 TH/MM3 CBC Comment AUTO DIFF Differential Total Cells Counted 100 Neutrophils % (Manual) 51 % Band Neutrophils % 9 % Lymphocytes % 29 % Monocytes % 7 % Eosinophils % 3 % Basophils % 1 % Neutrophils # (Manual) 2.6 TH/MM3 Differential Comment FINAL DIFF MANUAL Platelet Estimate LOW Platelet Morphology Comment NORMAL Tear Drop Cells 1+ Ovalocytes 1+ Date/Time Source Procedure Growth Status 01/27/17 16:10 Blood Peripheral Aerobic Blood Culture - Preliminary NO GROWTH IN 4 DAYS Resulted 01/27/17 16:10 Anaerobic Blood Culture - Final Escherichia Coli Resulted 01/27/17 16:57 Nasal Aspirate Influenza Types A,B Antigen ([facility]) - Final NEGATIVE FOR FLU A AND B ANTIGEN.... Complete Physical Examination HEENT: Normocephalic; atraumatic; no jaundice. CHEST: CTA CARDIAC: RRR ABDOMEN: Soft, nondistended, nontender; no hepatosplenomegaly; bowel sounds are present in all four quadrants. EXTREMITIES: Trace ble edema. SKIN: Normal; no rash; no jaundice. 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 (Loan Da Silva) Assessment and Plan Plan ASSESSMENT: - Elevated LFTs with bacteremia (E.Coli) and mild biliary ductal dilatation. Presented with fever/chills/rigors. BCx (+) E. Coli. CT scan abdomen and pelvis with contrast (01/27/17)---> no acute findings within the abdomen or pelvis. Severe diverticulosis without evidence for diverticulitis. Mild biliary ductal dilatation without evidence for calcified gallstones. Dependent atelectasis, scarring at the lung bases with calcified granulomata. US GB (01/27/17)---> normal examination with no gallstones, wall thickening, or pericholecystic fluid. HIDA Scan with delayed images (01/28/17)---> nonvisualization of the gallbladder up to 24 hours, suspicious for cystic duct obstruction. S/P GS evaluation, low suspicion of acute cholecystitis and suspects this may be more of CBD etiology. Unable to have MRCP secondary to PPM. Zosyn. LFTs trending down. ? Passed stone vs. sludge vs. stricture/other. Will plan for ERCP with possible sphincterotomy, possible stent placement tomorrow afternoon. - Bacteremia, Leukocytosis. BCx 01/27 (+) E. Coli. Zosyn. - Anemia, macrocytic. Of note, patient reports only occasional ETOH use. MCV 109.8. HH 8.3/24.8. Get folate level, B12. - Hx PPM PLAN: - Plan for ERCP with possible sphincterotomy, possible stent placement - Obtain consents - NPO after MN - Cont. Zosyn - Monitor labs - Supportive care - Unable to have MRCP secondary to PPM - Further recommendations to follow based on results of above - Pt seen and examined by Dr. Villarreal and myself and this note is written on his behalf (Loan Da Silva) Plan Patient was seen and examined, agree with above Notes, patient came with abdominal pain fever seems to have bacteremia most likely ascending cholangitis , dilated biliary tree he may have passed a stone or just retracted to the middle of the duct, unable to do MRCP because of pacemaker placement, we will plan on doing an ERCP tomorrow with possible sphincterotomy and evaluation for stricture versus stone removal. (Kristine Villarreal MD) Loan Da Silva Jan 31, 2017 12:02 Kristine Villarreal MD Jan 31, 2017 17:48
--- NOTE | 2017-01-31 12:48 | HHI.PR ---
Subjective Subjective Notes denies pain, +bm Objective Vitals/I&O Vital Signs Date Time Temp Pulse Resp B/P (MAP) Pulse Ox O2 Delivery O2 Flow Rate FiO2 01/31/17 08:00 95.8 67 16 131/62 (85) 94 01/29/17 17:12 21 01/27/17 19:26 Nasal Cannula 2.00 Labs Laboratory Tests Test 01/30/17 14:59 01/31/17 07:08 Hepatitis A IgM Antibody NEGATIVE Hepatitis B Surface Antigen NEGATIVE Hepatitis B Core IgM Antibody NEGATIVE Hepatitis C Antibody NEGATIVE White Blood Count 4.3 Red Blood Count 2.26 Hemoglobin 8.3 Hematocrit 24.8 Mean Corpuscular Volume 109.8 Mean Corpuscular Hemoglobin 36.9 Mean Corpuscular Hemoglobin Concent 33.6 Red Cell Distribution Width 27.7 Platelet Count 103 Mean Platelet Volume 9.1 Neutrophils (%) (Auto) 47.5 Lymphocytes (%) (Auto) 34.8 Monocytes (%) (Auto) 9.8 Eosinophils (%) (Auto) 6.6 Basophils (%) (Auto) 1.3 Neutrophils # (Auto) 2.0 Lymphocytes # (Auto) 1.5 Monocytes # (Auto) 0.4 Eosinophils # (Auto) 0.3 Basophils # (Auto) 0.1 CBC Comment AUTO DIFF Differential Total Cells Counted 100 Neutrophils % (Manual) 51 Band Neutrophils % 9 Lymphocytes % 29 Monocytes % 7 Eosinophils % 3 Basophils % 1 Neutrophils # (Manual) 2.6 Differential Comment FINAL DIFF MANUAL Platelet Estimate LOW Platelet Morphology Comment NORMAL Tear Drop Cells 1+ Ovalocytes 1+ Date/Time Source Procedure Growth Status 01/27/17 16:10 Blood Peripheral Aerobic Blood Culture - Preliminary NO GROWTH IN 4 DAYS Resulted 01/27/17 16:10 Anaerobic Blood Culture - Final Escherichia Coli Resulted 01/27/17 16:57 Nasal Aspirate Influenza Types A,B Antigen ([facility]LEY) - Final NEGATIVE FOR FLU A AND B ANTIGEN.... Complete Abdomen: Non-distended, Non-tender, Other A/P Assessment and Plan transaminitis, t bili improving, bacteremia PLAN abx per id await gi ERCP results will continue to follow James Mcbride MD Jan 31, 2017 12:48
[2017-01-31 16:00] VITALS: BP 126/60; PULSE 72; RESP 16; TEMP 96.6; O2SAT 96
--- NOTE | 2017-01-31 17:25 | HHI.PR ---
Subjective Remarks Plan for ERCP tomorrow. Patient has no new complaints. No acute concerns baseline labs. Objective Vital Signs Date Time Temp Pulse Resp B/P (MAP) Pulse Ox O2 Delivery O2 Flow Rate FiO2 01/31/17 16:00 96.6 72 16 126/60 (82) 96 01/31/17 12:00 95.4 70 16 120/59 (79) 97 01/31/17 08:00 95.8 67 16 131/62 (85) 94 01/31/17 04:00 96.8 70 17 108/62 (77) 95 01/31/17 00:00 97.0 62 17 100/60 (73) 95 01/30/17 20:00 97.4 66 17 103/56 (72) 95 I/O 01/30/17 01/30/17 01/30/17 01/31/17 01/31/17 01/31/17 07:00 15:00 23:00 07:00 15:00 23:00 Intake Total 1100 ml 220 ml 1090 ml 50 ml Output Total 800 ml 325 ml Balance 1100 ml -800 ml -105 ml 1090 ml 50 ml Intake Oral 120 ml 240 ml IV Total 1100 ml 100 ml 850 ml 50 ml Output Urine Total 800 ml 325 ml # Voids 2 # Bowel Movements 0 0 Result Diagram: 01/31/17 0708 01/30/17 0704 Objective Remarks GENERAL: NAD, A&Ox3 HEAD: Normocephalic. NECK: Supple, trachea midline. No lymphadenopathy. EYES: No scleral icterus. No injection or drainage. CARDIOVASCULAR: Regular rate and rhythm without murmurs, gallops, or rubs. RESPIRATORY: Breath sounds equal bilaterally. No accessory muscle use. GASTROINTESTINAL: Abdomen soft, non-tender, nondistended. MUSCULOSKELETAL: No cyanosis, or edema. SKIN: Warm and dry. NEURO: No focal neurological deficitis. A/P Problem List: (1) Transaminitis ICD Code: R74.0 - Nonspecific elevation of levels of transaminase and lactic acid dehydrogenase [LDH] Status: Acute (2) Sepsis ICD Code: A41.9 - Sepsis, unspecified organism Status: Acute (3) Anemia ICD Code: D64.9 - Anemia, unspecified Status: Acute (4) Acute liver failure ICD Code: K72.00 - Acute and subacute hepatic failure without coma Status: Acute Assessment and Plan Assessment and Plan 87-year-old male admitted secondary to abdominal pain with sepsis, now positive Escherichia coli on blood culture. Continue antibiotics. Nothing by mouth for EGD tomorrow. GI following. Labs reviewed and shown improvement. Labs ordered for further monitoring. Sepsis severe, SIRS Fevers Leukocytosis Transaminitis Continue to follow CBC Continue Zosyn ID consulted Bladder ultrasound, CT abdomen, showed no pathology No gallbladder filling of HIDA scan. Liver failure, acute Hepatitis Hepatitis panel Lines disease screen ordered Follow liver function studies Macular degeneration Presbycusis BPH Follow clinically DVT prophylaxis SCDs Problem Qualifiers (1) Sepsis: Qualified Codes: A41.9 - Sepsis, unspecified organism (2) Anemia: Qualified Codes: D64.9 - Anemia, unspecified Roel Matos MD Jan 31, 2017 17:25
[2017-01-31 20:00] VITALS: BP_SYST 121; BP_SYST 145; BP_DIAS 70; BP_DIAS 95; PULSE 63; PULSE 85; RESP 14; RESP 17; TEMP 95.9; TEMP 98; O2SAT 95; O2SAT 96
[2017-01-31] MEDS ORDERED: SODIUM CHLORID 0.9% 500 ML IV PRN (23:00)
[2017-01-31] MEDS ORDERED: LACTATED RINGER'S 1000 ML IV PRN (23:00)
[2017-02-01] VITALS: BP 129/73; PULSE 64; RESP 19; TEMP 97; O2SAT 94
[2017-02-01] MEDS: PIPERACIL-TAZO 3.375 GM PREMIX 50 ML IV SCH ×5 (00:37→22:21)
[2017-02-01 04:00] VITALS: BP 154/66; PULSE 68; RESP 19; TEMP 96.8; O2SAT 93
[2017-02-01 06:05] LABS: AUTOMATED NEUTROPHIL # 3.2 TH/MM3 (1.8-7.7); BASOPHIL # 0.2 TH/MM3 (0-0.2); BASOPHIL % 2.6 % (0.0-2.0); EOSINOPHIL # 0.4 TH/MM3 (0-0.4); EOSINOPHIL % 6.7 % (0.0-4.0); HEMATOCRIT 26.2 % (39.0-51.0); LYMPH % 29.6 % (9.0-44.0); LYMPHOCYTE # 1.7 TH/MM3 (1.0-4.8); MEAN CELL VOLUME 110.2 FL (80.0-100.0); MEAN CORPUSCULAR HEMOGLOBIN 37.1 PG (27.0-34.0); MEAN CORPUSCULAR HGB CONC 33.7 % (32.0-36.0); NEUT % 55.1 % (16.0-70.0); PLATELET COUNT 115 TH/MM3 (150-450); RED BLOOD COUNT 2.38 MIL/MM3 (4.50-5.90); RED CELL DISTRIBUTION WIDTH 28.6 % (11.6-17.2); WHITE BLOOD COUNT 5.8 TH/MM3 (4.0-11.0)
[2017-02-01 06:24] LABS: ANION GAP 8 MEQ/L (5-15); AST (GOT) 47 U/L (15-37); BICARBONATE 22.9 MEQ/L (21.0-32.0); BLOOD UREA NITROGEN 6 MG/DL (7-18); CHLORIDE 107 MEQ/L (98-107); GLOMERULAR FILTRATION RATE 77 ML/MIN (>89); POTASSIUM 3.4 MEQ/L (3.5-5.1); SODIUM (NA) 138 MEQ/L (136-145)
[2017-02-01 06:24] LABS: HEMO FLAGS AUTO DIFF
[2017-02-01 06:28] LABS: ALKALINE PHOSPHATASE 154 U/L (45-117); ALT (GPT) 89 U/L (12-78); TOTAL BILIRUBIN ADULT 1.3 MG/DL (0.2-1.0)
[2017-02-01 08:00] VITALS: BP 147/69; PULSE 65; RESP 16; TEMP 96.4; O2SAT 95
[2017-02-01] MEDS: SODIUM CHLORIDE 0.9% FLUSH 10 ML FLUSH IV FLUSH SCH ×2 (08:02→22:21)
[2017-02-01] MEDS: PANTOPRAZOLE SOD 40 MG DELAYED RELEASE TAB PO SCH (08:02)
[2017-02-01] MEDS: DOCUSATE SODIUM 50 MG/SENNA 8.6 MG TAB PO SCH ×2 (08:02→21:00)
[2017-02-01] MEDS: SODIUM CHLOR 0.9% 1000 ML INJ 1,000 ML IV SCH ×3 (08:05→22:18)
[2017-02-01 09:04] LABS: PLATELET ESTIMATE SMEAR LOW (NORMAL); PLATELET MORPHOLOGY NORMAL (NORMAL); SCAN/DIFF AUTO DIFF CONFIRMED
[2017-02-01] MEDS ORDERED: PROPOFOL 200 MG/20 ML AMP IV ONE (11:07)
[2017-02-01] MEDS ORDERED: PHENYLEPH/NS 1000 MCG/10 ML SYR IV ONE (11:07)
[2017-02-01 12:00] VITALS: BP 140/62; PULSE 57; RESP 16; TEMP 96.7; O2SAT 95
--- NOTE | 2017-02-01 12:11 | HHI.PR ---
Subjective Subjective Notes no acute issues, denies pain, npo for ercp today Objective Vitals/I&O Vital Signs Date Time Temp Pulse Resp B/P (MAP) Pulse Ox O2 Delivery O2 Flow Rate FiO2 02/01/17 08:00 96.4 65 16 147/69 (95) 95 01/29/17 17:12 21 Labs Laboratory Tests Test 02/01/17 05:06 02/01/17 05:16 Blood Urea Nitrogen 6 Creatinine 0.93 Random Glucose 108 Total Protein 6.6 Albumin 3.0 Calcium Level 9.0 Alkaline Phosphatase 154 Aspartate Amino Transf (AST/SGOT) 47 Alanine Aminotransferase (ALT/SGPT) 89 Total Bilirubin 1.3 Sodium Level 138 Potassium Level 3.4 Chloride Level 107 Carbon Dioxide Level 22.9 Anion Gap 8 Estimat Glomerular Filtration Rate 77 White Blood Count 5.8 Red Blood Count 2.38 Hemoglobin 8.8 Hematocrit 26.2 Mean Corpuscular Volume 110.2 Mean Corpuscular Hemoglobin 37.1 Mean Corpuscular Hemoglobin Concent 33.7 Red Cell Distribution Width 28.6 Platelet Count 115 Mean Platelet Volume 9.0 Neutrophils (%) (Auto) 55.1 Lymphocytes (%) (Auto) 29.6 Monocytes (%) (Auto) 6.0 Eosinophils (%) (Auto) 6.7 Basophils (%) (Auto) 2.6 Neutrophils # (Auto) 3.2 Lymphocytes # (Auto) 1.7 Monocytes # (Auto) 0.3 Eosinophils # (Auto) 0.4 Basophils # (Auto) 0.2 CBC Comment AUTO DIFF Differential Comment AUTO DIFF CONFIRMED Platelet Estimate LOW Platelet Morphology Comment NORMAL Date/Time Source Procedure Growth Status 01/27/17 16:10 Blood Peripheral Aerobic Blood Culture - Final NO GROWTH IN 5 DAYS Complete 01/27/17 16:10 Anaerobic Blood Culture - Final Escherichia Coli Complete 01/27/17 16:57 Nasal Aspirate Influenza Types A,B Antigen (BENTLEY) - Final NEGATIVE FOR FLU A AND B ANTIGEN.... Complete Abdomen: Non-distended, Non-tender A/P Assessment and Plan transaminitis, t bili improving, bacteremia - clinically improving PLAN abx per id await gi ERCP today will continue to follow James Mcbride MD Feb 01, 2017 12:11
--- NOTE | 2017-02-01 15:22 | GIPROC ---
[facility] [address] [facility]. [facility], [address] ERCP PROCEDURE REPORT EXAM DATE: 02/01/2017 PATIENT NAME: Bulmaro Guillen MR #: [id number] BIRTHDATE: 1930 ATTENDING: Kezia Nelson MD ORDER #: [id number] STATE MANAGER: Alyssa Goldberg and Liana Holguin STATUS: inpatient INDICATIONS: The patient is a 87 yr old male here for an ERCP due to abdominal pain of suspected biliary origin, abnormal abdominal CT, and abnormal liver function test PROCEDURE PERFORMED: ERCP with stent placement ERCP with biopsy MEDICATIONS: None and Per Anesthesia. CONSENT: The patient understands the risks and benefits of the procedure and understands that these risks include, but are not limited to: sedation, allergic reaction, infection, perforation and/or bleeding. Alternative means of evaluation and treatment include, among others: physical exam, x-rays, and/or surgical intervention. The patient elects to proceed with this endoscopic procedure. medical equipment was checked for proper function. Hand hygiene and appropriate measures for infection prevention was taken. After the risks, benefits and alternatives of the procedure were thoroughly explained, Informed was verified, confirmed and timeout was successfully executed by the treatment team. With the patient in left semi-prone position, medications were administered intravenously.The Pentax [id number] was passed from the mouth into the esophagus and further advanced from the esophagus into the stomach. From stomach scope was directed to the second portion of the duodenum. Major papilla was aligned with the duodenoscope. The scope position was confirmed fluoroscopically. Rest of the findings/therapeutics are given below. The scope was then completely withdrawn from the patient and the procedure completed. The pulse, BP, and O2 saturation were monitored and documented by the physician and the nursing staff throughout the entire procedure. The patient was cared for as planned according to standard protocol. The patient was then discharged to recovery in stable condition and with appropriate post procedure care. The ampulla was located the second portion of the duodenum, in a position more proximal than normal. The ampulla appeared distorted. The ampulla was small and difficult to locate. A single filling defect was seen in the distal common bile duct. Dilated CBD to 10mm. 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 Ampulla swollen and inflammed, ? mass. 8.5 x 9 cm stent placed. Ampullary biopsies obtained. ADVERSE EVENT: There were no complications. IMPRESSIONS: 1. Ampulla appeared distorted. The ampulla was small and difficult to locate 2. Dilated CBD to 10mm. 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 Ampulla swollen and inflammed, ? mass. 8.5 x 9 cm stent placed. Ampullary biopsies obtained RECOMMENDATIONS: 1. Await biopsy results 2. Liver enzymes 3. Surgery REPEAT EXAM: Return 2 months ERCP Kezia Nelson MD eSigned: Kezia Nelson MD 02/01/2017 3:22 PM cc: Roel Cottrell M.D. PATIENT NAME: Bulmaro Guillen MR#: [id number]
[2017-02-01] MEDS ORDERED: DO NOT ADM ANY ANTICOAGULANT DRUGS PRN (15:25)
--- NOTE | 2017-02-01 16:10 | RADRPT ---
EXAM DATE/TIME: 02/01/2017 15:05 [place] COMPARISON: No previous studies available for comparison. INDICATIONS : Evaluate for CBD obstruction and stent placement. FLUORO TIME: 3.10 minutes IMAGE COUNT: 7 CONTRAST: Instilled by Ordering Physician MEDICAL HISTORY : Cardiovascular disease. Diabetes mellitus type 2.Biliary ductal dilatation SURGICAL HISTORY : Right hip surgery ENCOUNTER: Initial ACUITY: 1 day PAIN SCORE: Non-responsive. LOCATION: Bilateral Abdomen. FINDINGS: An ERCP was performed by the ordering physician. The images demonstrate contrast in the common duct. On the last image, there is a biliary stent in p lace. CONCLUSION: ERCP as above. John Vee MD on February 01, 2017 at 16:07 Board Certified Radiologist. This report was verified electronically.
--- NOTE | 2017-02-01 18:06 | HHI.PR ---
Subjective Remarks Status post ERCP today. Stone and inflammation were present at the ampulla. Constriction was present at the exit. Dilation was performed. Stent has been placed. Patient has no complaints of pain when seen after the procedure. Objective Vital Signs Date Time Temp Pulse Resp B/P (MAP) Pulse Ox O2 Delivery O2 Flow Rate FiO2 02/01/17 16:10 97.5 65 16 150/72 (98) 95 Room Air 02/01/17 16:00 64 16 152/73 (99) 94 Room Air 02/01/17 15:45 63 15 150/74 (99) 100 Nasal Cannula 3 02/01/17 15:30 62 14 141/63 (89) 99 Nasal Cannula 3 02/01/17 15:25 98.2 65 12 146/68 (94) 98 Nasal Cannula 3 02/01/17 12:00 96.7 57 16 140/62 (88) 95 02/01/17 08:00 96.4 65 16 147/69 (95) 95 02/01/17 04:00 96.8 68 19 154/66 (95) 93 02/01/17 00:00 97.0 64 19 129/73 (91) 94 01/31/17 20:00 95.9 63 17 145/95 (112) 95 I/O 01/31/17 01/31/17 01/31/17 02/01/17 02/01/17 02/01/17 07:00 15:00 23:00 07:00 15:00 23:00 Intake Total 1090 ml 50 ml 750 ml 240 ml 50 ml 1100 ml Output Total 378 ml Balance 1090 ml 50 ml 372 ml 240 ml 50 ml 1100 ml Intake Oral 240 ml 750 ml 240 ml IV Total 850 ml 50 ml 50 ml 700 ml Other 400 ml Output Urine Total 378 ml # Voids 2 2 2 # Bowel Movements 1 Result Diagram: 02/01/17 0516 02/01/17 0506 Objective Remarks GENERAL: NAD, A&Ox3 HEAD: Normocephalic. NECK: Supple, trachea midline. No lymphadenopathy. EYES: No scleral icterus. No injection or drainage. CARDIOVASCULAR: Regular rate and rhythm without murmurs, gallops, or rubs. RESPIRATORY: Breath sounds equal bilaterally. No accessory muscle use. GASTROINTESTINAL: Abdomen soft, non-tender, nondistended. MUSCULOSKELETAL: No cyanosis, or edema. SKIN: Warm and dry. NEURO: No focal neurological deficitis. A/P Problem List: (1) Transaminitis ICD Code: R74.0 - Nonspecific elevation of levels of transaminase and lactic acid dehydrogenase [LDH] Status: Acute (2) Sepsis ICD Code: A41.9 - Sepsis, unspecified organism Status: Acute (3) Anemia ICD Code: D64.9 - Anemia, unspecified Status: Acute (4) Acute liver failure ICD Code: K72.00 - Acute and subacute hepatic failure without coma Status: Acute Assessment and Plan Assessment and Plan 87-year-old male admitted secondary to abdominal pain with sepsis, now positive Escherichia coli on blood culture. Continue antibiotics. Biliary stent placed during ERCP today. Follow liver enzymes and follow clinically for any evidence of pancreatitis post procedure. Sepsis severe, SIRS Fevers Leukocytosis Transaminitis Continue to follow CBC Continue Zosyn ID consulted Bladder ultrasound, CT abdomen, showed no pathology No gallbladder filling of HIDA scan. Liver failure, acute Hepatitis Hepatitis panel Lines disease screen ordered Follow liver function studies Macular degeneration Presbycusis BPH Follow clinically DVT prophylaxis SCDs Problem Qualifiers (1) Sepsis: Qualified Codes: A41.9 - Sepsis, unspecified organism (2) Anemia: Qualified Codes: D64.9 - Anemia, unspecified Roel Matos MD Feb 01, 2017 18:06
[2017-02-01 20:00] VITALS: BP 140/63; PULSE 65; RESP 20; TEMP 96.5; O2SAT 95
[2017-02-01 20:25] VITALS: O2SAT 95
[2017-02-01 23:52] LABS: LYME DISEASE 18KD IGG BAND NON-REACTIVE (NON REACTIV); LYME DISEASE 23 IGG BAND NON-REACTIVE (NON REACTIV); LYME DISEASE 23KD IGM BAND NON-REACTIVE (NONREACTIVE); LYME DISEASE 28KD IGG BAND NON-REACTIVE (NON REACTIV); LYME DISEASE 30KD IGG BAND NON-REACTIVE (NON REACTIV); LYME DISEASE 39 KD IGG BAND NON-REACTIVE (NONREACTIVE); LYME DISEASE 39KD IGM BAND NON-REACTIVE (NONREACTIVE); LYME DISEASE 41KD IGG BAND REACTIVE (NONREACTIVE); LYME DISEASE 41KD IGM BAND NON-REACTIVE (NONREACTIVE); LYME DISEASE 45KD IGG BAND NON-REACTIVE (NONREACTIVE); LYME DISEASE 58KD IGG BAND NON-REACTIVE (NONREACTIVE); LYME DISEASE 66KD IGG BAND REACTIVE (NONREACTIVE); LYME DISEASE 93KD IGG BAND REACTIVE (NONREACTIVE); LYME DISEASE IGM WB NEGATIVE (NONREACTIVE)
[2017-02-02] VITALS: BP 154/63; PULSE 72; RESP 20; TEMP 97.2; O2SAT 94
[2017-02-02 02:50] VITALS: PULSE 68
[2017-02-02 04:00] VITALS: BP 146/65; PULSE 64; RESP 20; TEMP 96.5; O2SAT 98
[2017-02-02] MEDS: PIPERACIL-TAZO 3.375 GM PREMIX 50 ML IV SCH ×2 (04:59→11:21)
[2017-02-02 07:48] LABS: AUTOMATED NEUTROPHIL # 3.7 TH/MM3 (1.8-7.7); BASOPHIL # 0.1 TH/MM3 (0-0.2); BASOPHIL % 1.3 % (0.0-2.0); EOSINOPHIL # 0.3 TH/MM3 (0-0.4); EOSINOPHIL % 5.2 % (0.0-4.0); LYMPH % 29.9 % (9.0-44.0); MEAN CELL VOLUME 109.8 FL (80.0-100.0); MEAN CORPUSCULAR HEMOGLOBIN 36.3 PG (27.0-34.0); MEAN CORPUSCULAR HGB CONC 33.1 % (32.0-36.0); MONO % 6.7 % (0.0-8.0); NEUT % 56.9 % (16.0-70.0); PLATELET COUNT 136 TH/MM3 (150-450); RED BLOOD COUNT 2.46 MIL/MM3 (4.50-5.90); WHITE BLOOD COUNT 6.6 TH/MM3 (4.0-11.0)
[2017-02-02 08:00] VITALS: BP 133/63; PULSE 63; RESP 18; TEMP 98.2; O2SAT 92
[2017-02-02 08:05] LABS: HEMO FLAGS AUTO DIFF
[2017-02-02 08:11] LABS: ANION GAP 8 MEQ/L (5-15); AST (GOT) 54 U/L (15-37); BICARBONATE 25.8 MEQ/L (21.0-32.0); BLOOD UREA NITROGEN 6 MG/DL (7-18); CHLORIDE 107 MEQ/L (98-107); GLOMERULAR FILTRATION RATE 70 ML/MIN (>89); POTASSIUM 3.6 MEQ/L (3.5-5.1); SODIUM (NA) 141 MEQ/L (136-145)
[2017-02-02 08:13] LABS: ALT (GPT) 93 U/L (12-78)
[2017-02-02 08:16] LABS: ALKALINE PHOSPHATASE 148 U/L (45-117); TOTAL BILIRUBIN ADULT 1.4 MG/DL (0.2-1.0)
[2017-02-02] MEDS: PANTOPRAZOLE SOD 40 MG DELAYED RELEASE TAB PO SCH (09:35)
[2017-02-02] MEDS: DOCUSATE SODIUM 50 MG/SENNA 8.6 MG TAB PO SCH (09:35)
[2017-02-02] MEDS: SODIUM CHLOR 0.9% 1000 ML INJ 1,000 ML IV SCH (09:35)
[2017-02-02] MEDS: SODIUM CHLORIDE 0.9% FLUSH 10 ML FLUSH IV FLUSH SCH (09:36)
[2017-02-02 10:22] LABS: BANDS 20 % (0-6); BASOPHILS 1 % (0-2); CORRECTED NUCLEATED RBC 1 /100 WBC (0-0); EOSINOPHILS 5 % (0-4); MYELOCYTES 1 % (0-0); OVALOCYTES 1+ (NORMAL); POLYS (SEG NEUTROPHILS) 40 % (16-70); WBC DIFF SAMPLE 100
[2017-02-02 10:23] LABS: ACANTHOCYTES OCC (NORMAL); PLATELET ESTIMATE SMEAR LOW (NORMAL); PLATELET MORPHOLOGY NORMAL (NORMAL); SCAN/DIFF FINAL DIFF MANUAL; TOXIC GRANULATION 1+ (NORMAL)
[2017-02-02 12:00] VITALS: BP 146/66; PULSE 69; RESP 18; TEMP 96.5; O2SAT 93
--- NOTE | 2017-02-02 12:51 | HHI.GIFU ---
Subjective Remarks ERCP note reviewed and informatin shared with patient and family. His bile duct will be drained for the next few months by the stent in place. Biopsy was obtained and result should be available next week. Rule out cancer in the papilla. Stone remains in the CBD but obstruction will be prevented by the stent. Pt may still need gallbladder surgery due to non vis of GB on HIDA. Wait for surgery to follow up. Objective Vitals I&O Vital Signs Date Time Temp Pulse Resp B/P (MAP) Pulse Ox O2 Delivery O2 Flow Rate FiO2 02/02/17 08:00 98.2 63 18 133/63 (86) 92 02/02/17 04:00 96.5 64 20 146/65 (92) 98 02/02/17 02:50 68 02/02/17 00:00 97.2 72 20 154/63 (93) 94 02/01/17 20:25 95 21 02/01/17 20:00 96.5 65 20 140/63 (88) 95 02/01/17 16:10 97.5 65 16 150/72 (98) 95 Room Air 02/01/17 16:00 64 16 152/73 (99) 94 Room Air 02/01/17 15:45 63 15 150/74 (99) 100 Nasal Cannula 3 02/01/17 15:30 62 14 141/63 (89) 99 Nasal Cannula 3 02/01/17 15:25 98.2 65 12 146/68 (94) 98 Nasal Cannula 3 I/O 02/01/17 02/01/17 02/01/17 02/02/17 02/02/17 02/02/17 07:00 15:00 23:00 07:00 15:00 23:00 Intake Total 240 ml 50 ml 1340 ml 240 ml Output Total 1150 ml 400 ml Balance 240 ml 50 ml 190 ml -160 ml Intake Oral 240 ml 240 ml 240 ml IV Total 50 ml 700 ml Other 400 ml Output Urine Total 1150 ml 400 ml # Voids 2 1 # Bowel Movements 1 Laboratory Laboratory Tests Test 02/02/17 06:48 White Blood Count 6.6 Red Blood Count 2.46 Hemoglobin 8.9 Hematocrit 27.0 Mean Corpuscular Volume 109.8 Mean Corpuscular Hemoglobin 36.3 Mean Corpuscular Hemoglobin Concent 33.1 Red Cell Distribution Width 28.0 Platelet Count 136 Mean Platelet Volume 8.8 Neutrophils (%) (Auto) 56.9 Lymphocytes (%) (Auto) 29.9 Monocytes (%) (Auto) 6.7 Eosinophils (%) (Auto) 5.2 Basophils (%) (Auto) 1.3 Neutrophils # (Auto) 3.7 Lymphocytes # (Auto) 2.0 Monocytes # (Auto) 0.4 Eosinophils # (Auto) 0.3 Basophils # (Auto) 0.1 CBC Comment AUTO DIFF Differential Total Cells Counted 100 Neutrophils % (Manual) 40 Band Neutrophils % 20 Lymphocytes % 26 Monocytes % 7 Eosinophils % 5 Basophils % 1 Neutrophils # (Manual) 4.0 Myelocytes 1 Nucleated Red Blood Cells 1 Differential Comment FINAL DIFF MANUAL Atypical Lymphocytes Toxic Granulation 1+ Platelet Estimate LOW Platelet Morphology Comment NORMAL Ovalocytes 1+ Acanthocytes OCC Blood Urea Nitrogen 6 Creatinine 1.01 Random Glucose 84 Total Protein 6.6 Albumin 3.1 Calcium Level 8.7 Alkaline Phosphatase 148 Aspartate Amino Transf (AST/SGOT) 54 Alanine Aminotransferase (ALT/SGPT) 93 Total Bilirubin 1.4 Sodium Level 141 Potassium Level 3.6 Chloride Level 107 Carbon Dioxide Level 25.8 Anion Gap 8 Estimat Glomerular Filtration Rate 70 Date/Time Source Procedure Growth Status 01/27/17 16:10 Blood Peripheral Aerobic Blood Culture - Final NO GROWTH IN 5 DAYS Complete 01/27/17 16:10 Anaerobic Blood Culture - Final Escherichia Coli Complete 01/27/17 16:57 Nasal Aspirate Influenza Types A,B Antigen (BENTLEY) - Final NEGATIVE FOR FLU A AND B ANTIGEN.... Complete Physical Exam HEENT: Pupils round and reactive to light; normocephalic; atraumatic; no jaundice. Throat is clear. NECK: Neck is supple, no JVD, no lymphadenopathy. CHEST: Chest is clear to auscultation and percussion. CARDIAC: Regular rate and rhythm with no murmur gallop or rubs. ABDOMEN: Soft, nondistended, nontender; no hepatosplenomegaly; bowel sounds are present in all four quadrants. EXTREMITIES: No clubbing, cyanosis, or edema. SKIN: Normal; no rash; no jaundice. PICKER PACKER: No focal deficits; alert and oriented times three. Assessment and Plan Plan Imp: CBD stone, remains in place. Stent placed. Swollen papilla probably due to the impacted stone. Rec: Await surgery input re possible cholecystectomy. Await biopsy result. Gilberto Dick MD Feb 02, 2017 12:51
[2017-02-02] MEDS ORDERED: LACTTAB8 PO (13:26)
[2017-02-02] MEDS ORDERED: CIPR500T2 PO (13:26)
--- NOTE | 2017-02-02 13:44 | HHI.PR ---
Subjective Subjective Notes no new issues, no pain Objective Vitals/I&O Vital Signs Date Time Temp Pulse Resp B/P (MAP) Pulse Ox O2 Delivery O2 Flow Rate FiO2 02/02/17 12:00 96.5 69 18 146/66 (92) 93 02/01/17 20:25 21 02/01/17 16:10 Room Air 02/01/17 15:45 3 Labs Laboratory Tests Test 02/02/17 06:48 White Blood Count 6.6 Red Blood Count 2.46 Hemoglobin 8.9 Hematocrit 27.0 Mean Corpuscular Volume 109.8 Mean Corpuscular Hemoglobin 36.3 Mean Corpuscular Hemoglobin Concent 33.1 Red Cell Distribution Width 28.0 Platelet Count 136 Mean Platelet Volume 8.8 Neutrophils (%) (Auto) 56.9 Lymphocytes (%) (Auto) 29.9 Monocytes (%) (Auto) 6.7 Eosinophils (%) (Auto) 5.2 Basophils (%) (Auto) 1.3 Neutrophils # (Auto) 3.7 Lymphocytes # (Auto) 2.0 Monocytes # (Auto) 0.4 Eosinophils # (Auto) 0.3 Basophils # (Auto) 0.1 CBC Comment AUTO DIFF Differential Total Cells Counted 100 Neutrophils % (Manual) 40 Band Neutrophils % 20 Lymphocytes % 26 Monocytes % 7 Eosinophils % 5 Basophils % 1 Neutrophils # (Manual) 4.0 Myelocytes 1 Nucleated Red Blood Cells 1 Differential Comment FINAL DIFF MANUAL Atypical Lymphocytes Toxic Granulation 1+ Platelet Estimate LOW Platelet Morphology Comment NORMAL Ovalocytes 1+ Acanthocytes OCC Blood Urea Nitrogen 6 Creatinine 1.01 Random Glucose 84 Total Protein 6.6 Albumin 3.1 Calcium Level 8.7 Alkaline Phosphatase 148 Aspartate Amino Transf (AST/SGOT) 54 Alanine Aminotransferase (ALT/SGPT) 93 Total Bilirubin 1.4 Sodium Level 141 Potassium Level 3.6 Chloride Level 107 Carbon Dioxide Level 25.8 Anion Gap 8 Estimat Glomerular Filtration Rate 70 Date/Time Source Procedure Growth Status 01/27/17 16:10 Blood Peripheral Aerobic Blood Culture - Final NO GROWTH IN 5 DAYS Complete 01/27/17 16:10 Anaerobic Blood Culture - Final Escherichia Coli Complete 01/27/17 16:57 Nasal Aspirate Influenza Types A,B Antigen ([facility]) - Final NEGATIVE FOR FLU A AND B ANTIGEN.... Complete Abdomen: Non-distended A/P Assessment and Plan 87yo male s/p ERCP for CBD stones, s/p stent placement. will need repeat ERCP will hold off on lap na until duct cleared, ok to DC home Stef Harvey MD Feb 02, 2017 13:44
--- NOTE | 2017-02-02 14:12 | HHI.FF ---
Face to Face Verification Diagnosis: (1) Acute liver failure (2) Anemia (3) Sepsis (4) Transaminitis Physical Therapy Order: Evaluate and Treat I have seen patient Bulmaro Guillen on 02/02/17. My clinical findings support the need for the requested home health care services because: Ltd mobility - disease progression Deconditioned w/ increased weakness Limited ability to care for self I certify that my clinical findings support that this patient is homebound because: Unsteady gait/balance Unsafe to leave home unassisted Unable to use public transportation Roel Matos MD Feb 02, 2017 14:12
--- NOTE | 2017-02-02 14:15 | HHI.DS ---
Discharge Summary Admission Date Jan 27, 2017 at 18:41 Discharge Date: Feb 02, 2017 Admitting Diagnosis (1) Acute liver failure ICD Code: K72.00 - Acute and subacute hepatic failure without coma Diagnosis: Principal Status: Acute (2) Sepsis ICD Code: A41.9 - Sepsis, unspecified organism Diagnosis: Principal Status: Acute (3) Anemia ICD Code: D64.9 - Anemia, unspecified Diagnosis: Principal Status: Acute Procedures ERCP Brief History - From Admission Patient is a pleasant 87-year-old male with primary medical history of macular degeneration, BPH, mild PVD who came into the hospital for evaluation of "shakes " and fever. at the bedside and neighbor at the bedside. reports that yesterday patient had abdominal pain but states it went away after. This morning he again has another abdominal pain, mid epigastric region, but states it went away after a few minutes and then patient started to have some shaking episode with his hands with tremors, noted to have fever but did not take the temperature. Patient denies any abdominal pain, nausea, vomiting, diarrhea. Denies any cramping, dysuria. Denies any chest pain, palpitations. On 2 L nasal cannula, denies any shortness of breath, dyspnea. Review of records, patient also had a history of A. fib, atrioventricular block , bradycardia. Previously seen by Dr. Diallo for permanent pacemaker placement 2014. CBC/BMP: 02/02/17 0648 02/02/17 0648 Significant Findings Laboratory Tests Test 01/30/17 14:59 01/31/17 07:08 02/01/17 05:06 02/01/17 05:16 Red Blood Count 2.26 MIL/MM3 (4.50-5.90) 2.38 MIL/MM3 (4.50-5.90) Hemoglobin 8.3 GM/DL (13.0-17.0) 8.8 GM/DL (13.0-17.0) Hematocrit 24.8 % (39.0-51.0) 26.2 % (39.0-51.0) Mean Corpuscular Volume 109.8 FL (80.0-100.0) 110.2 FL (80.0-100.0) Mean Corpuscular Hemoglobin 36.9 PG (27.0-34.0) 37.1 PG (27.0-34.0) Red Cell Distribution Width 27.7 % (11.6-17.2) 28.6 % (11.6-17.2) Platelet Count 103 TH/MM3 (150-450) 115 TH/MM3 (150-450) Monocytes (%) (Auto) 9.8 % (0.0-8.0) Eosinophils (%) (Auto) 6.6 % (0.0-4.0) 6.7 % (0.0-4.0) Band Neutrophils % 9 % (0-6) Platelet Estimate LOW (NORMAL) LOW (NORMAL) Tear Drop Cells 1+ (NORMAL) Ovalocytes 1+ (NORMAL) Blood Urea Nitrogen 6 MG/DL (7-18) Random Glucose 108 MG/DL (74-106) Albumin 3.0 GM/DL (3.4-5.0) Alkaline Phosphatase 154 U/L (45-117) Aspartate Amino Transf (AST/SGOT) 47 U/L (15-37) Alanine Aminotransferase (ALT/SGPT) 89 U/L (12-78) Total Bilirubin 1.3 MG/DL (0.2-1.0) Potassium Level 3.4 MEQ/L (3.5-5.1) Estimat Glomerular Filtration Rate 77 ML/MIN (>89) Basophils (%) (Auto) 2.6 % (0.0-2.0) Test 02/02/17 06:48 Red Blood Count 2.46 MIL/MM3 (4.50-5.90) Hemoglobin 8.9 GM/DL (13.0-17.0) Hematocrit 27.0 % (39.0-51.0) Mean Corpuscular Volume 109.8 FL (80.0-100.0) Mean Corpuscular Hemoglobin 36.3 PG (27.0-34.0) Red Cell Distribution Width 28.0 % (11.6-17.2) Platelet Count 136 TH/MM3 (150-450) Eosinophils (%) (Auto) 5.2 % (0.0-4.0) Band Neutrophils % 20 % (0-6) Eosinophils % 5 % (0-4) Myelocytes 1 % (0-0) Nucleated Red Blood Cells 1 /100 WBC (0-0) Toxic Granulation 1+ (NORMAL) Platelet Estimate LOW (NORMAL) Ovalocytes 1+ (NORMAL) Blood Urea Nitrogen 6 MG/DL (7-18) Albumin 3.1 GM/DL (3.4-5.0) Alkaline Phosphatase 148 U/L (45-117) Aspartate Amino Transf (AST/SGOT) 54 U/L (15-37) Alanine Aminotransferase (ALT/SGPT) 93 U/L (12-78) Total Bilirubin 1.4 MG/DL (0.2-1.0) Estimat Glomerular Filtration Rate 70 ML/MIN (>89) Hospital Course Mr. Guillen is an 87 -year-old male. He came in secondary to sepsis and transaminitis. Escherichia coli bacteremia was discovered through time. Etiology was uncertain at first but further workup revealed that he had biliary obstruction at the ampulla with the stone. ERCP was performed and stone could not be retrieved due to degree of swelling. Stent has been placed and he will follow-up for stent removal and sensitive stone removal in 2 weeks with gastroenterology. Plan for cholecystectomy after stone removal. At this point he is asymptomatic and he has a downward trend in his LFTs and bilirubin level. He is medically stable for discharge to home today with clearance from surgery and GI. Outpatient follow-up with GI. I am continuing him on one more week of ciprofloxacin with probiotics. Pt Condition on Discharge: Stable Discharge Disposition: Disch w/ Home Health Serv Discharge Time: <= 30 minutes Discharge Instructions DIET: Follow Instructions for: Low Fat Diet Activities you can perform: Regular-No Restrictions Follow up Referrals: Gastroenterology - 1 Week with Kezia Nelson MD PCP Follow-up - 1 Week Surgical - 3 Weeks with James Mcbride MD New Medications: Ciprofloxacin (Ciprofloxacin) 500 Mg Tab 500 MG PO BID for Infection for 7 Days, #14 TAB 0 Refills Lactobacillus Acidophilus (Lactobacillus Acidophilus) 1 Billion Cell Tab 1 TAB PO TIDAC for Nutritional Supplement, #30 TAB 0 Refills Continued Medications: [Atarax] () 30 MG PO DAILY Roel Matos MD Feb 02, 2017 14:15
== END 2017-02-02 14:55 | disposition home health service (06) | DRG 871 ==
LOC: NEPC 15:55 → NEDA 18:41 → N07A 20:54
PROVIDERS: ADMIT Hospitalist; ATTEND Hospitalist
PROC: 0FBC8ZX Excision of Ampulla of Vater, Via Natural or Artificial Opening Endoscopic, Diagnostic (ICD-10-PCS; 2017-02-01)
PROC: BF101ZZ Fluoroscopy of Bile Ducts using Low Osmolar Contrast (ICD-10-PCS; 2017-02-01)
PROC: 0F7C8DZ Dilation of Ampulla of Vater with Intraluminal Device, Via Natural or Artificial Opening Endoscopic (ICD-10-PCS; principal; 2017-02-01 14:45)
DX: A41.51 Sepsis due to Escherichia coli [E. coli] (principal); K72.00 Acute and subacute hepatic failure without coma; E87.2 Acidosis; K80.43 Calculus of bile duct with acute cholecystitis with obstruction; I48.91 Unspecified atrial fibrillation; R65.20 Severe sepsis without septic shock; H35.30 Unspecified macular degeneration; I73.9 Peripheral vascular disease, unspecified; D53.9 Nutritional anemia, unspecified; K57.30 Diverticulosis of large intestine without perforation or abscess without bleeding; H91.10 Presbycusis, unspecified ear; N40.0 Benign prostatic hyperplasia without lower urinary tract symptoms; Z95.0 Presence of cardiac pacemaker; Z87.891 Personal history of nicotine dependence; Z88.8 Allergy status to other drugs, medicaments and biological substances
CPT/HCPCS: 71010; 74177; 74330; 76705; 78226; 80053; 80074; 81001; 82550; 83036; 83605; 83690; 83735; 84100; 84439; 84443; 84484; 85007; 85025; 85027; 85610; 85730; 86617; 87040; 87186; 87205; 87804; 88305; 93005; 96361; 96365; 96368; A9537; C1769; C2625; J2370; J2543; J3370; J7030; J7040; Q9967

== ENCOUNTER 2017-02-25 22:26 | Inpatient (IN) | payer OTHER, MEDICARE ==
[~2017-02-25] VITALS: Ht 182.9 cm; Wt 93.8 kg
[~2017-02-25 22:26] MED LIST changes: -CHLORHEXIDINE GLUCONATE 2 % 1 PACK (2 CLOTHS) TOPICAL PRN; -CIPR500T2 PO; -DO NOT ADM ANY ANTICOAGULANT DRUGS PRN; +GLYCOPYRROLATE 1 MG/5 ML SYRINGE IV PUSH ONE; -HYDR-3133 PO; -IBUPROFEN 400 MG TAB PO ONE; -INSULIN HUMAN REGULAR 1,000 UNITS/10 ML VIAL SQ PRN; -LACTATED RINGER'S 1000 ML IV PRN; +LIDOCAINE HCL 1% PF 5 ML SYRINGE OTHER ONE; -METOPROLOL TARTRATE 25 MG TAB PO PRN; -METR-1 PO; +NEOSTIGMINE 3 MG/3 ML SYR IV ONE; -POVIDONE IODINE 5% (ANTISEPSIS KIT) 4 APPLICATIONS EACH NARE PRN; +PROPOFOL 200 MG/20 ML AMP IV ONE; +ROCURONIUM INJ 50 MG/5 ML SYRINGE IV PUSH ONE; -SODIUM CHLORID 0.9% 500 ML IV PRN; -VITA10002 PO
[2017-02-25] MEDS ORDERED: SODIUM CHLOR 0.9% 1000 ML INJ 1,000 ML IV SCH (22:28)
[2017-02-25] MEDS ORDERED: SODIUM CHLORIDE 0.9% FLUSH 10 ML FLUSH IV FLUSH PRN (22:30)
[2017-02-25 22:35] VITALS: BP 161/70; PULSE 99; RESP 28; TEMP 103.4; O2SAT 95
[2017-02-25 22:42] VITALS: O2SAT 95
[2017-02-25] MEDS ORDERED: SODIUM CHLOR 0.9% 1000 ML INJ 1,000 ML IV ONE (22:45)
[2017-02-25] MEDS ORDERED: ACETAMINOPHEN 650 MG SUPP RECTAL ONE (22:45)
[2017-02-25] MEDS ORDERED: PIPERACIL-TAZO 4.5 GM PREMIX 100 ML IV ONE (22:45)
--- NOTE | 2017-02-25 22:49 | PD ---
HPI Chief Complaint: Fever Time Seen by Provider: 22:27 Travel History International Travel<30 days: No Contact w/Intl Traveler<30days: No Traveled to known affect area: No History of Present Illness HPI 87-year-old male arrives by EMS. Earlier today he underwent ERCP with removal of a stent. Sphincterotomy papillotomy was performed along with a balloon sweep and one stone was removed. Procedure well-tolerated by patient. He was discharged home and at home he became increasingly weak evidently febrile leading to his calling EMS who brings him here where he denies pain at the bedside. He reports feeling cold. PFSH Past Medical History Autoimmune Disease: No Blood Disorders: No Anxiety: No Depression: No Heart Rhythm Problems: Yes (new PM this visit) Cancer: Yes (skin cancer face) Cardiovascular Problems: Yes (pacemaker) Chemotherapy: No Diabetes: Yes (pre diabetic) Patient Takes Glucophage: No Diminished Hearing: Yes ([place]TH[place]AY/HEARING AIDS) Endocrine: No Gastrointestinal Disorders: Yes (STONES BILE DUCT, GERD) GERD: Yes Genitourinary: Yes (BPH) Hepatitis: No Hiatal Hernia: Yes Hypertension: No Immune Disorder: No Implanted Vascular Access Dvce: Yes Musculoskeletal: No Neurologic: No Psychiatric: No Reproductive: No Respiratory: No Radiation Therapy: No Thyroid Disease: No Past Surgical History Abdominal Surgery: Yes (HERNIA REPAIR) AICD: No Body Medical Devices: RIGHT HIP PINS, BILIARY STENT Cardiac Surgery: Yes (PACEMAKER) Ear Surgery: No Eye Surgery: Yes (BILATERAL CORNEA TRANSPLANT) Genitourinary Surgery: Yes (VASECTOMY) Joint Replacement: Yes (RIGHT KNEE) Oral Surgery: No Pacemaker: Yes Other Surgery: Yes Social History Alcohol Use: Yes Tobacco Use: No (QUIT 1993) Substance Use: No Allergies-Medications (Allergen,Severity, Reaction): Coded Allergies: aspirin (Unverified Allergy, Severe, 02/25/17) oxaprozin (Unverified Allergy, Severe, BRUISES, 02/25/17) Reported Meds & Prescriptions Reported Meds & Active Scripts Active Reported Preservision Areds (Multiple Vitamins W/ Minerals) 1 Tab 1 Tab PO BID Vitamin B-12 (Cyanocobalamin) 1,000 Mcg Tab 1,000 Mcg PO DAILY Hydroxyzine HCl 25 Mg Tab 30 Mg PO DAILY Preservision Areds (Multiple Vitamins W/ Minerals) 1 Tab 1 Tab PO DAILY Folic Acid 0.4 Mg Tab 400 Mcg PO DAILY Prilosec (Omeprazole Magnesium) 20 Mg Tab 20 Mg PO DAILY Review of Systems Except as stated in HPI: all other systems reviewed are Neg Physical Exam Narrative GENERAL: 87-year-old male well-nourished well-developed mild distress SKIN: Warm and dry. HEAD: Atraumatic. Normocephalic. EYES: Pupils equal and round. No scleral icterus. No injection or drainage. ENT: No nasal bleeding or discharge. Mucous membranes pink and moist. NECK: Trachea midline. No JVD. CARDIOVASCULAR: Regular rate and rhythm. RESPIRATORY: No accessory muscle use. Clear to auscultation. Breath sounds equal bilaterally. GASTROINTESTINAL: Soft. Mild generalized tenderness.. EXTREMITIES: Extremities without clubbing, cyanosis, or edema. No obvious deformities. NEUROLOGICAL: Awake and alert. No obvious cranial nerve deficits. Motor grossly within normal limits. Five out of 5 muscle strength in the arms and legs. Normal speech. PSYCHIATRIC: Appropriate mood and affect; insight and judgment normal. Data Data Last Documented VS Vital Signs Date Time Temp Pulse Resp B/P (MAP) Pulse Ox O2 Delivery O2 Flow Rate FiO2 02/26/17 00:23 100.8 99 20 137/87 (104) 99 Nasal Cannula 2.00 VS reviewed Orders Orders Complete Blood Count With Diff (02/25/17 22:28) Comprehensive Metabolic Panel (02/25/17 22:28) Lipase (02/25/17 22:28) Lactic Acid (02/25/17 22:28) Urinalysis - C+S If Indicated (02/25/17 22:28) Ct Abd/Pel W/O Iv Contrast (02/25/17 22:28) Iv Access Insert/Monitor (02/25/17 22:28) Ecg Monitoring (02/25/17 22:28) Oximetry (02/25/17 22:28) Sodium Chlor 0.9% 1000 Ml Inj (Ns 1000 M (02/25/17 22:28) Sodium Chloride 0.9% Flush (Ns Flush) (02/25/17 22:30) Blood Culture (02/25/17 22:33) Piperacil-Tazo 4.5 Gm Premix (Zosyn 4.5 (02/25/17 22:45) Blood Culture (02/25/17 22:39) Sodium Chlor 0.9% 1000 Ml Inj (Ns 1000 M (02/25/17 22:45) Acetaminophen Supp (Tylenol Supp) (02/25/17 22:45) Utility Specialist / Telemetry LAVERN.Q8H (02/26/17 00:27) Vital Signs (Adult) Q4H (02/26/17 00:27) Diet Npo (02/26/17 Breakfast) Activity Bed Rest (02/26/17 00:27) Labs Laboratory Tests Test 02/25/17 22:40 White Blood Count 13.1 TH/MM3 Red Blood Count 2.73 MIL/MM3 Hemoglobin 9.6 GM/DL Hematocrit 29.5 % Mean Corpuscular Volume 108.2 FL Mean Corpuscular Hemoglobin 35.3 PG Mean Corpuscular Hemoglobin Concent 32.6 % Red Cell Distribution Width 27.5 % Platelet Count 114 TH/MM3 Mean Platelet Volume 8.5 FL Neutrophils (%) (Auto) 92.2 % Lymphocytes (%) (Auto) 3.5 % Monocytes (%) (Auto) 3.9 % Eosinophils (%) (Auto) 0.0 % Basophils (%) (Auto) 0.4 % Neutrophils # (Auto) 12.1 TH/MM3 Lymphocytes # (Auto) 0.5 TH/MM3 Monocytes # (Auto) 0.5 TH/MM3 Eosinophils # (Auto) 0.0 TH/MM3 Basophils # (Auto) 0.0 TH/MM3 CBC Comment AUTO DIFF Differential Comment AUTO DIFF CONFIRMED Ovalocytes 1+ Blood Urea Nitrogen 17 MG/DL Creatinine 1.06 MG/DL Random Glucose 211 MG/DL Total Protein 6.9 GM/DL Albumin 3.5 GM/DL Calcium Level 8.7 MG/DL Alkaline Phosphatase 175 U/L Aspartate Amino Transf (AST/SGOT) 200 U/L Alanine Aminotransferase (ALT/SGPT) 170 U/L Total Bilirubin 6.1 MG/DL Sodium Level 138 MEQ/L Potassium Level 4.1 MEQ/L Chloride Level 104 MEQ/L Carbon Dioxide Level 24.3 MEQ/L Anion Gap 10 MEQ/L Estimat Glomerular Filtration Rate 66 ML/MIN Lactic Acid Level 3.7 mmol/L Lipase 169 U/L [facility] Medical Decision Making Medical Screen Exam Complete: Yes Emergency Medical Condition: Yes Medical Record Reviewed: Yes Differential Diagnosis Constipation, Gastritis, Acute Cholecystitis, Biliary Colic, Pancreatitis, GARCIA , Hepatitis, Bowel Obstruction, Cystitis, Mesenteric Ischemia, AAA, Appendicitis , Renal Stone/Hydronephrosis, GERD, perforated viscous Narrative Course CBC & BMP Diagram 02/25/17 22:40 Total Protein 6.9, Albumin 3.5, Calcium Level 8.7, Alkaline Phosphatase 175 H, Aspartate Amino Transf (AST/SGOT) 200 H, Alanine Aminotransferase (ALT/SGPT) 170 H, Total Bilirubin 6.1 H Lactic acid 3.7 Last 24 hours Impressions Abdomen/Pelvis CT 02/25/17 2228 Signed Impressions: Service Date/Time: Saturday, February 25, 2017 23:21 - CONCLUSION: 1. Patient had an ERCP today and there is contrast in the common bile duct, cystic duct and gallbladder and trace intrahepatic biliary air. Distended common bile duct, etiology uncertain. 2. Otherwise negative. No evidence of perforation or other acute complication. Jesus Cruz MD Patient likely has cholangitis. This case was discussed with Dr Perez requests nothing by mouth after midnight with plan for heat treat furnace operator ERCP. Zosyn started IV fluids started. Pain controlled. Case discussed with Dr. An for [facility]. Critical Care Narrative Aggregate critical care time was 35 minutes. Time to perform other separately billable procedures was not included in the critical care time. My time did not include minutes spent treating any other patients simultaneously or on activities that did not directly contribute to the patient's treatment. The services I provided to this patient were to treat and/or prevent clinically significant deterioration that could result in: Septic shock I provided critical care services requiring my management, as noted below: Chart data review, documentation time, medication orders and management, vital sign assessments/reviewing monitor data, ordering and reviewing lab tests, ordering and interpreting/reviewing x-rays and diagnostic studies, care of the patient and discussion of the patient with the admitting physicians. Diagnosis Primary Impression: Cholangitis Additional Impression: Sepsis Qualified Codes: A41.9 - Sepsis, unspecified organism Admitting Information Admitting Physician Requests: Admit Roel Rae MD Feb 25, 2017 22:49
[2017-02-25 22:55] LABS: AUTOMATED NEUTROPHIL # 12.1 TH/MM3 (1.8-7.7); BASOPHIL % 0.4 % (0.0-2.0); HEMATOCRIT 29.5 % (39.0-51.0); LYMPH % 3.5 % (9.0-44.0); LYMPHOCYTE # 0.5 TH/MM3 (1.0-4.8); MEAN CELL VOLUME 108.2 FL (80.0-100.0); MEAN CORPUSCULAR HEMOGLOBIN 35.3 PG (27.0-34.0); MEAN CORPUSCULAR HGB CONC 32.6 % (32.0-36.0); MONO % 3.9 % (0.0-8.0); NEUT % 92.2 % (16.0-70.0); PLATELET COUNT 114 TH/MM3 (150-450); RED BLOOD COUNT 2.73 MIL/MM3 (4.50-5.90); RED CELL DISTRIBUTION WIDTH 27.5 % (11.6-17.2); WHITE BLOOD COUNT 13.1 TH/MM3 (4.0-11.0)
[2017-02-25] MEDS ORDERED: VITA10002 PO (22:58)
[2017-02-25] MEDS ORDERED: HYDR-3133 PO (22:58)
[2017-02-25] MEDS ORDERED: OCUVTAB4 PO (22:59)
[2017-02-25 23:13] LABS: HEMO FLAGS AUTO DIFF
[2017-02-25 23:15] LABS: ALT (GPT) 170 U/L (12-78); ANION GAP 10 MEQ/L (5-15); AST (GOT) 200 U/L (15-37); BICARBONATE 24.3 MEQ/L (21.0-32.0); BLOOD UREA NITROGEN 17 MG/DL (7-18); CHLORIDE 104 MEQ/L (98-107); GLOMERULAR FILTRATION RATE 66 ML/MIN (>89); POTASSIUM 4.1 MEQ/L (3.5-5.1); SODIUM (NA) 138 MEQ/L (136-145)
[2017-02-25 23:17] LABS: ALKALINE PHOSPHATASE 175 U/L (45-117); TOTAL BILIRUBIN ADULT 6.1 MG/DL (0.2-1.0)
--- NOTE | 2017-02-25 23:45 | RADRPT ---
EXAM DATE/TIME: 02/25/2017 23:21 [facility] COMPARISON: GI LAB ERCP, February 25, 2017, 11:46. GI LAB ERCP, February 01, 2017, 15:05. BILIARY SCAN (HIDA), O ctober 2016, 10:09. CT ABDOMEN & PELVIS W CONTRAST, January 27, 2017, 19:09. INDICATIONS : Abdominal pain. ORAL CONTRAST: No oral contrast ingested. RADIATION DOSE: 22.96 CTDIvol (mGy) MEDICAL HISTORY : Cardiovascular disease. Gastroesophageal reflux disease. Benign prostatic hyperplasia, (BPH)Hiatal he rnia. Skin cancer. SURGICAL HISTORY : Pacemaker. Right hip surgery. ENCOUNTER: Initial ACUITY: 1 day PAIN SCALE: Non-responsive LOCATION: Bilateral abdomen TECHNIQUE: Volumetric scanning of the abdomen and pelvis was performed. Using automated exposure control and ad justment of the mA and/or kV according to patient size, radiation dose was kept as low as reasonably achievable to obtain optimal diagnostic quality images. DICOM format image data is available electro nically for review and comparison. FINDINGS: Contrast is seen in the common bile duct, cystic duct and gallbladder related to recent retrograde ch olangiogram. Small amounts of air are seen in the intrahepatic biliary branches, mostly in the depend ent in the left hepatic lobe. Common bile duct is distended all the way to the ampulla, measuring jerome roximately 15 mm. No definite stone. Noncontrast appearance of the spleen, pancreas, adrenal glands and kidneys within normal limits. Ther e is atherosclerosis of the abdominal aorta. No aneurysm. No obstruction or acute inflammatory change is seen of the gastrointestinal tract. There is no free f luid or free air. Tiny effusions and mild atelectasis/scarring seen at the bases. No acute bony abnormality demonstrate d. CONCLUSION: 1. Patient had an ERCP today and there is contrast in the common bile duct, cystic duct and gallbladd er and trace intrahepatic biliary air. Distended common bile duct, etiology uncertain. 2. Otherwise negative. No evidence of perforation or other acute complication. Jesus Cruz MD on February 25, 2017 at 23:39 Board Certified Radiologist. This report was verified electronically.
[2017-02-26] VITALS (16 sets, daily range): BP systolic 102–137; BP diastolic 52–87; PULSE 70–99; RESP 18–26; TEMP 97.4–100.8; O2SAT 96–99
[2017-02-26 00:22] LABS: OVALOCYTES 1+ (NORMAL); SCAN/DIFF AUTO DIFF CONFIRMED
[2017-02-26] MEDS ORDERED: BISACODYL 10 MG SUPP RECTAL PRN (00:30)
[2017-02-26] MEDS ORDERED: LACTULOSE SYRUP 20 GM/30 ML CUP PO PRN (00:30)
[2017-02-26] MEDS ORDERED: NALOXONE HCL 0.4 MG/ML AMP IV PUSH PRN (00:30)
[2017-02-26] MEDS ORDERED: SODIUM CHLORIDE 0.9% FLUSH 10 ML FLUSH IV FLUSH PRN (00:30)
[2017-02-26] MEDS ORDERED: SENNOSIDES 8.6 MG TAB PO PRN (00:30)
[2017-02-26] MEDS ORDERED: MAGNESIUM HYDROXIDE SUSP 30 ML CUP PO PRN (00:30)
[2017-02-26] MEDS ORDERED: ACETAMINOPHEN 325 MG TAB PO PRN (00:30)
[2017-02-26] MEDS ORDERED: ONDANSETRON HCL 4 MG/2 ML VIAL IVP PRN (00:30)
[2017-02-26] MEDS: SODIUM CHLOR 0.9% 1000 ML INJ 1,000 ML IV SCH ×3 (01:06→21:50)
[2017-02-26] MEDS: CHLORHEXIDINE GLUCONATE 2 % 1 PACK (2 CLOTHS)(taper/protocol) TOPICAL SCH (04:00)
[2017-02-26] MEDS ORDERED: CHLORHEXIDINE GLUCONATE 2 % 1 PACK (2 CLOTHS)(extra cloths) TOPICAL PRN (04:30)
[2017-02-26 04:54] LABS: AUTOMATED NEUTROPHIL # 11.1 TH/MM3 (1.8-7.7); BASOPHIL # 0.1 TH/MM3 (0-0.2); BASOPHIL % 0.4 % (0.0-2.0); HEMATOCRIT 27.2 % (39.0-51.0); LYMPH % 8.4 % (9.0-44.0); LYMPHOCYTE # 1.1 TH/MM3 (1.0-4.8); MEAN CELL VOLUME 108.7 FL (80.0-100.0); MEAN CORPUSCULAR HGB CONC 33.1 % (32.0-36.0); MONO % 5.3 % (0.0-8.0); NEUT % 85.9 % (16.0-70.0); PLATELET COUNT 110 TH/MM3 (150-450); RED CELL DISTRIBUTION WIDTH 27.2 % (11.6-17.2)
[2017-02-26] MEDS ORDERED: PANTOPRAZOLE SODIUM 40 MG VIAL IV PUSH ONE (05:00)
--- NOTE | 2017-02-26 05:05 | HHI.HP ---
[facility] Service [facility] Primary [facility] Physician Bimal Cottrell MD Admission Diagnosis Cholangitis Diagnoses: Travel History International Travel<30 Days: No Contact w/Intl Traveler <30 Da: No Traveled to Known Affected Are: No History of Present Illness 87-year-old male with a past medical history of macular degeneration, BPH and GERD presents to the ED following ERCP with removal of the stent done on 2016. Sphincterotomy/papillotomy was performed along with a balloon sweep and one stone was removed. Procedure well-tolerated by patient. He was discharged to home following the procedure and became increasingly weak and uncomfortable and febrile to 103. He currently denies any abdominal pain. Does complain of acid reflux. On arrival to the emergency department patient had a rectal temperature of 103.4. He has a leukocytosis with left shift 13.1. His AST/ALT/ alkaline phosphatase was 200/170/175 and a total bilirubin was 6.1. Lactic acid 3.7. Review of Systems Denies fever or chills Denies blurry vision, otorrhea, rhinorrhea Denies sore throat and cough No chest pain, palpitations, shortness of breath No abdominal pain Denies constipation/diarrhea/nausea/vomiting Denies muscle pain/weakness No rashes Past Family Social History Past Medical History Macular degeneration BPH GERD Past Surgical History Hernia repair Permanent pacemaker dual chamber, 2014 Right knee replacement Vasectomy Corneal transplant Reported Medications Reported Meds & Active Scripts Active Reported Preservision Areds (Multiple Vitamins W/ Minerals) 1 Tab 1 Tab PO BID Vitamin B-12 (Cyanocobalamin) 1,000 Mcg Tab 1,000 Mcg PO DAILY Hydroxyzine HCl 25 Mg Tab 30 Mg PO DAILY Preservision Areds (Multiple Vitamins W/ Minerals) 1 Tab 1 Tab PO DAILY Folic Acid 0.4 Mg Tab 400 Mcg PO DAILY Prilosec (Omeprazole Magnesium) 20 Mg Tab 20 Mg PO DAILY Allergies: Coded Allergies: aspirin (Unverified Allergy, Severe, 02/25/17) oxaprozin (Unverified Allergy, Severe, BRUISES, 02/25/17) Family History Father with history of cardiac arrest. Brother with heart disease. Social History Previous alcohol use. Former smoker, quit in 1993. Denies marijuana or illicit drugs. Physical Exam Vital Signs Vital Signs Date Time Temp Pulse Resp B/P (MAP) Pulse Ox O2 Delivery O2 Flow Rate FiO2 02/26/17 02:02 02/26/17 02:00 98.9 87 24 115/57 (76) 96 02/26/17 02:00 87 02/26/17 01:57 98.9 86 20 115/57 (76) 98 02/26/17 00:23 100.8 99 20 137/87 (104) 99 Nasal Cannula 2.00 02/25/17 22:42 95 Nasal Cannula 2.00 02/25/17 22:35 103.4 99 28 161/70 (100) 95 Physical Exam GENERAL: Elderly male lying in bed SKIN: No rashes, ecchymoses or lesions. Cool and dry. HEAD: Atraumatic. Normocephalic. No temporal or scalp tenderness. EYES: Pupils equal round and reactive. Extraocular motions intact. No scleral icterus. No injection or drainage. ENT: Nose without bleeding, purulent drainage or septal hematoma. Throat without erythema, tonsillar hypertrophy or exudate. Uvula midline. Airway patent. NECK: Trachea midline. No JVD or lymphadenopathy. Supple, nontender, no meningeal signs. CARDIOVASCULAR: Regular rate and rhythm without murmurs, gallops, or rubs. RESPIRATORY: Clear to auscultation. Breath sounds equal bilaterally. No wheezes , rales, or rhonchi. GASTROINTESTINAL: Abdomen soft, non-tender, nondistended. No hepato-splenomegaly , or palpable masses. No guarding. MUSCULOSKELETAL: Extremities without clubbing, cyanosis, or edema. No joint tenderness, effusion, or edema noted. No calf tenderness. Negative Homans sign bilaterally. NEUROLOGICAL: Awake and alert. Cranial nerves II through XII intact. Motor and sensory grossly within normal limits. Normal speech. Laboratory Laboratory Tests Test 02/25/17 22:40 02/26/17 01:40 White Blood Count 13.1 Red Blood Count 2.73 Hemoglobin 9.6 Hematocrit 29.5 Mean Corpuscular Volume 108.2 Mean Corpuscular Hemoglobin 35.3 Mean Corpuscular Hemoglobin Concent 32.6 Red Cell Distribution Width 27.5 Platelet Count 114 Mean Platelet Volume 8.5 Neutrophils (%) (Auto) 92.2 Lymphocytes (%) (Auto) 3.5 Monocytes (%) (Auto) 3.9 Eosinophils (%) (Auto) 0.0 Basophils (%) (Auto) 0.4 Neutrophils # (Auto) 12.1 Lymphocytes # (Auto) 0.5 Monocytes # (Auto) 0.5 Eosinophils # (Auto) 0.0 Basophils # (Auto) 0.0 CBC Comment AUTO DIFF Differential Comment AUTO DIFF CONFIRMED Ovalocytes 1+ Blood Urea Nitrogen 17 Creatinine 1.06 Random Glucose 211 Total Protein 6.9 Albumin 3.5 Calcium Level 8.7 Alkaline Phosphatase 175 Aspartate Amino Transf (AST/SGOT) 200 Alanine Aminotransferase (ALT/SGPT) 170 Total Bilirubin 6.1 Sodium Level 138 Potassium Level 4.1 Chloride Level 104 Carbon Dioxide Level 24.3 Anion Gap 10 Estimat Glomerular Filtration Rate 66 Lactic Acid Level 3.7 Lipase 169 Date/Time Source Procedure Growth Status 02/25/17 22:40 Blood Peripheral Aerobic Blood Culture Pending Received 02/25/17 22:40 Blood Peripheral Anaerobic Blood Culture Pending Received Result Diagram: 02/25/170 02/25/170 Caprini VTE Risk Assessment Caprini VTE Risk Assessment: Mod/High Risk (score >= 2) Caprini Risk Assessment Model Point Value = 1 Point Value = 2 Point Value = 3 Point Value = 5 Age 41-60 Minor surgery BMI > 25 kg/m2 Swollen legs Varicose veins or History of unexplained or recurrent spontaneous Oral contraceptives or hormone replacement Sepsis (< 1 month) Serious lung disease, including pneumonia (< 1 month) Abnormal pulmonary function Acute myocardial infarction Congestive heart failure (< 1 month) History of inflammatory bowel disease Medical patient at bed rest Age 61-74 Arthroscopic surgery Major open surgery (> 45 min) Laparoscopic surgery (> 45 min) Malignancy Confined to bed (> 72 hours) Immobilizing plaster cast Central venous access Age >= 75 History of VTE Family history of VTE Factor V Leiden Prothrombin [id number] Lupus anticoagulant Anticardiolipin antibodies Elevated serum homocysteine Heparin-induced thrombocytopenia Other congenital or acquired thrombophilia Stroke (< 1 month) Elective arthroplasty Hip, pelvis, or leg fracture Acute spinal cord injury (< 1 month) Prophylaxis Regimen Total Risk Factor Score Risk Level Prophylaxis Regimen 0-1 Low Early ambulation 2 Moderate Order ONE of the following: *Sequential Compression Device (SCD) *Heparin 5000 units SQ BID 3-4 Higher Order ONE of the following medications: *Heparin 5000 units SQ TID *Enoxaparin/Lovenox 40 mg SQ daily (WT < 150 kg, CrCl > 30 mL/min) *Enoxaparin/Lovenox 30 mg SQ daily (WT < 150 kg, CrCl > 10-29 mL/min) *Enoxaparin/Lovenox 30 mg SQ BID (WT < 150 kg, CrCl > 30 mL/min) AND/OR *Sequential Compression Device (SCD) 5 or more Highest Order ONE of the following medications: *Heparin 5000 units SQ TID (Preferred with Epidurals) *Enoxaparin/Lovenox 40 mg SQ daily (WT < 150 kg, CrCl > 30 mL/min) *Enoxaparin/Lovenox 30 mg SQ daily (WT < 150 kg, CrCl > 10-29 mL/min) *Enoxaparin/Lovenox 30 mg SQ BID (WT < 150 kg, CrCl > 30 mL/min) AND *Sequential Compression Device (SCD) Assessment and Plan Assessment and Plan 87-year-old male presents with fever, elevated lactic acid, transaminitis, elevated bilirubin and leukocytosis following ERCP on 02/25/17. 1. Concern for cholangitis/Sepsis WBC 13.6, temp 103.4, lactic acid 3.7 Transaminitis and elevated total bilirubin Blood cultures pending Repeat lactic acid pending IV Zosyn GI consulted, appreciate recommendations - patient to go for repeat ERCP later today IV fluids 2. GERD Protonix FEN NPO NS at 125 cc/hr Electrolytes: Replete prn Holding pharmacologic anticoagulation in anticipation of procedure later today Physician Certification 2 Midnight Certification Type: Admission for Inpatient Services Order for Inpatient Services The services are ordered in accordance with Medicare regulations or non- Medicare payer requirements, as applicable. In the case of services not specified as inpatient-only, they are appropriately provided as inpatient services in accordance with the 2-midnight benchmark. Estimated LOS (days): 2 2 days is the estimated time the patient will need to remain in the hospital, assuming treatment plan goals are met and no additional complications. Post-Hospital Plan: Not yet determined Liliya An MD Feb 26, 2017 05:05
[2017-02-26 05:06] LABS: HEMO FLAGS AUTO DIFF
[2017-02-26 05:18] LABS: ANION GAP 9 MEQ/L (5-15); AST (GOT) 248 U/L (15-37); BICARBONATE 24.2 MEQ/L (21.0-32.0); BLOOD UREA NITROGEN 18 MG/DL (7-18); CHLORIDE 106 MEQ/L (98-107); GLOMERULAR FILTRATION RATE 67 ML/MIN (>89); POTASSIUM 4.1 MEQ/L (3.5-5.1); SODIUM (NA) 139 MEQ/L (136-145)
[2017-02-26 05:19] LABS: ALT (GPT) 235 U/L (12-78)
[2017-02-26 05:21] LABS: ALKALINE PHOSPHATASE 157 U/L (45-117)
[2017-02-26] MEDS: PIPERACIL-TAZO 3.375 GM PREMIX 50 ML IV SCH ×4 (05:53→23:32)
[2017-02-26 06:57] LABS: BANDS 18 % (0-6); METAMYELOCYTES 1 % (0-1); NEUTROPHIL # MANUAL DIFF 12.1 TH/MM3 (1.8-7.7); PLATELET ESTIMATE SMEAR LOW (NORMAL); PLATELET MORPHOLOGY NORMAL (NORMAL); POLYS (SEG NEUTROPHILS) 74 % (16-70); SCAN/DIFF FINAL DIFF MANUAL; WBC DIFF SAMPLE 100
[2017-02-26 06:58] LABS: OVALOCYTES 1+ (NORMAL)
--- NOTE | 2017-02-26 08:38 | PD.CONS ---
HPI History of Present Illness This is a 87 year old male with a history of choledocholithiasis. He underwent an ERCP with stent placement (February 01, 2017)---> ampulla appeared distorted. The ampulla was small and difficult to locate. Dilated common bile duct to 10 mm. Distal common bile duct stricture and impacted stone at the ampulla. Ampulla swollen and inflamed, and questionable mass. 8.5 x 9 cm stent placed ampullary biopsies were obtained. Pathology revealed superficial small bowel mucosa without significant histopathologic abnormality. Labs post procedure were T. Bilirubin 1.4, AST 54, ALT 93, alkaline phosphatase 148. He was then seen in our office by Dr. Hassan on February 12, 2017 for follow up. He reported that his abdominal pain resolved after his ERCP and that he was not having any fevers, chills, nausea, or pain. He was scheduled for an ERCP with stent extraction and underwent ERCP with sphincterotomy/papillotomy with removal of calculus and stent (02/25/17)----> Dilated CBD, Stent removed. Balloon sweep 15mm x 3. 1 stone removed. Duct flushed with NS at the end. Occlusion cholangiogram performed. He was stable after the procedure and discharged home. He states that after the procedure he felt a little gassy, but was not that symptomatic and went home. Once he got home, he started having significant nausea, weakness, and fever of 103.0. He denies any abdominal pain. He was brought to the ER for further evaluation. He was noted to have WBC 13.1 and elevated LFTs with T. Bili 6.1, 200, 170, 175. These increased to 8.0, 248, 235, [address] Scan abdomen and pelvis (02/25/17 )---> Patient had an ERCP today and there is contrast in the common bile duct, cystic duct and gallbaldder and trace intrahepatic biliary air. Distended common bile duct, etiology uncertain. Otherwise negative. No evidence of perforation or other. He was admitted to the intensive care unit for sepsis/ suspected cholangitis. (Loan Da Silva) PFSH Past Medical History Macular degeneration BPH GERD Mild PVD Atrial fibrillation Atrioventricular block Choledocholithiasis Past Surgical History Right knee replacement Right hip ORIF Permanent pacemaker dual chamber, 2014 Double hernia repair Vasectomy Bilateral corneal transplant ERCP (Loan Da Silva) Coded Allergies: aspirin (Unverified Allergy, Severe, 02/25/17) oxaprozin (Unverified Allergy, Severe, BRUISES, 02/25/17) Medications Allergies Coded Allergies Type Severity Reaction Last Updated Verified aspirin Allergy Severe 02/25/17 No oxaprozin Allergy Severe BRUISES 02/25/17 No Active Scripts Medications Dose Route/Sig Max Daily Dose Days Date Category Preservision Areds (Multiple Vitamins W/ Minerals) 1 Tab 1 Tab PO BID 02/25/17 Reported Vitamin B-12 (Cyanocobalamin) 1,000 Mcg Tab 1,000 Mcg PO DAILY 02/25/17 Reported Hydroxyzine HCl 25 Mg Tab 30 Mg PO DAILY 02/25/17 Reported Preservision Areds (Multiple Vitamins W/ Minerals) 1 Tab 1 Tab PO DAILY 02/21/17 Reported Folic Acid 0.4 Mg Tab 400 Mcg PO DAILY 02/21/17 Reported Prilosec (Omeprazole Magnesium) 20 Mg Tab 20 Mg PO DAILY 02/21/17 Reported Family History Father history of cardiac arrest Brother has heart disease Social History Previous alcohol use. Former smoker, quit in 1993. Denies marijuana or illicit drugs. (Loan Da Silva) Review of Systems Constitutional: COMPLAINS OF: Fatigue, Fever, Chills Gastrointestinal: COMPLAINS OF: Nausea, Swelling of Abdomen (bloating), DENIES : Abdominal pain Integumentary: DENIES: Abnormal pigmentation Hematologic/lymphatic: DENIES: Bruising Neurologic: DENIES: Headache Psychiatric: DENIES: Confusion (Loan Da Silva) GI Exam Vitals I&O Vital Signs Date Time Temp Pulse Resp B/P (MAP) Pulse Ox O2 Delivery O2 Flow Rate FiO2 02/26/17 08:00 79 02/26/17 08:00 98.9 72 20 117/58 (77) 98 02/26/17 07:55 98.9 72 20 117/58 (77) 98 02/26/17 07:00 74 02/26/17 06:00 79 02/26/17 06:00 76 02/26/17 04:00 80 22 135/64 (87) 99 02/26/17 04:00 78 02/26/17 04:00 80 02/26/17 02:02 02/26/17 02:00 98.9 87 24 115/57 (76) 96 02/26/17 02:00 84 02/26/17 02:00 87 02/26/17 01:57 98.9 86 20 115/57 (76) 98 02/26/17 00:23 100.8 99 20 137/87 (104) 99 Nasal Cannula 2.00 02/25/17 22:42 95 Nasal Cannula 2.00 02/25/17 22:35 103.4 99 28 161/70 (100) 95 I/O 02/25/17 02/25/17 02/25/17 02/26/17 02/26/17 02/26/17 07:00 15:00 23:00 07:00 15:00 23:00 Intake Total 2855 ml 50 ml Output Total 0 ml Balance 2855 ml 50 ml Intake IV Total 2855 ml 50 ml Output Urine Total 0 ml Imaging Last Impressions Abdomen/Pelvis CT 02/25/172227 Signed Impressions: Service Date/Time: Saturday, February 25, 2017 23:21 - CONCLUSION: 1. Patient had an ERCP today and there is contrast in the common bile duct, cystic duct and gallbladder and trace intrahepatic biliary air. Distended common bile duct, etiology uncertain. 2. Otherwise negative. No evidence of perforation or other acute complication. Jesus Cruz MD Laboratory Test 02/25/17 22:40 02/26/17 01:40 02/26/17 04:44 White Blood Count 13.1 TH/MM3 13.0 TH/MM3 Red Blood Count 2.73 MIL/MM3 2.50 MIL/MM3 Hemoglobin 9.6 GM/DL 9.0 GM/DL Hematocrit 29.5 % 27.2 % Mean Corpuscular Volume 108.2 FL 108.7 FL Mean Corpuscular Hemoglobin 35.3 PG 36.0 PG Mean Corpuscular Hemoglobin Concent 32.6 % 33.1 % Red Cell Distribution Width 27.5 % 27.2 % Platelet Count 114 TH/MM3 110 TH/MM3 Mean Platelet Volume 8.5 FL 8.7 FL Neutrophils (%) (Auto) 92.2 % 85.9 % Lymphocytes (%) (Auto) 3.5 % 8.4 % Monocytes (%) (Auto) 3.9 % 5.3 % Eosinophils (%) (Auto) 0.0 % 0.0 % Basophils (%) (Auto) 0.4 % 0.4 % Neutrophils # (Auto) 12.1 TH/MM3 11.1 TH/MM3 Lymphocytes # (Auto) 0.5 TH/MM3 1.1 TH/MM3 Monocytes # (Auto) 0.5 TH/MM3 0.7 TH/MM3 Eosinophils # (Auto) 0.0 TH/MM3 0.0 TH/MM3 Basophils # (Auto) 0.0 TH/MM3 0.1 TH/MM3 CBC Comment AUTO DIFF AUTO DIFF Differential Comment AUTO DIFF CONFIRMED FINAL DIFF MANUAL Ovalocytes 1+ 1+ Blood Urea Nitrogen 17 MG/DL 18 MG/DL Creatinine 1.06 MG/DL 1.05 MG/DL Random Glucose 211 MG/DL 156 MG/DL Total Protein 6.9 GM/DL 6.6 GM/DL Albumin 3.5 GM/DL 3.2 GM/DL Calcium Level 8.7 MG/DL 8.1 MG/DL Alkaline Phosphatase 175 U/L 157 U/L Aspartate Amino Transf (AST/SGOT) 200 U/L 248 U/L Alanine Aminotransferase (ALT/SGPT) 170 U/L 235 U/L Total Bilirubin 6.1 MG/DL 8.0 MG/DL Sodium Level 138 MEQ/L 139 MEQ/L Potassium Level 4.1 MEQ/L 4.1 MEQ/L Chloride Level 104 MEQ/L 106 MEQ/L Carbon Dioxide Level 24.3 MEQ/L 24.2 MEQ/L Anion Gap 10 MEQ/L 9 MEQ/L Estimat Glomerular Filtration Rate 66 ML/MIN 67 ML/MIN Lactic Acid Level 3.7 mmol/L 1.8 mmol/L Lipase 169 U/L Nasal Screen MRSA (PCR) MRSA NOT DETECTED Differential Total Cells Counted 100 Neutrophils % (Manual) 74 % Band Neutrophils % 18 % Lymphocytes % 4 % Monocytes % 3 % Neutrophils # (Manual) 12.1 TH/MM3 Metamyelocytes 1 % Platelet Estimate LOW Platelet Morphology Comment NORMAL Date/Time Source Procedure Growth Status 02/25/17 22:40 Blood Peripheral Aerobic Blood Culture Pending Received 02/25/17 22:40 Blood Peripheral Anaerobic Blood Culture Pending Received Physical Examination HEENT: Normocephalic; atraumatic; no jaundice. CHEST: CTA CARDIAC: RRR ABDOMEN: Soft, nondistended, nontender; no hepatosplenomegaly; bowel sounds are present in all four quadrants. EXTREMITIES: No clubbing, cyanosis, or edema. SKIN: Normal; no rash; no jaundice. HOGSHEAD OPENER: No focal deficits; alert and oriented times three. (Loan Da Silva) Assessment and Plan Plan ASSESSMENT: - Suspected cholangitis, possible biliary obstruction. Hospitalized in January and underwent ERCP with stent placement (02/01) for choledocholithiasis----> ampulla appeared distorted. The ampulla was small and difficult to locate. Dilated common bile duct to 10 mm. Distal common bile duct stricture and impacted stone at the ampulla. Ampulla swollen and inflamed, and questionable mass. 8.5 x 9 cm stent placed ampullary biopsies were obtained. Pathology revealed superficial small bowel mucosa without significant histopathologic abnormality. Had outpatient ERCP with stent extraction and underwent ERCP with sphincterotomy/papillotomy with removal of calculus and stent (02/25/17)----> Dilated CBD, Stent removed. Balloon sweep 15mm x 3. 1 stone removed. Duct flushed with NS at the end. Occlusion cholangiogram performed. He was stable after the procedure and discharged home. He then developed nausea, weakness, and fever of 103.0 and came to ER. CT Scan abdomen and pelvis (02/25/17)---> Patient had an ERCP today and there is contrast in the common bile duct, cystic duct and gallbaldder and trace intrahepatic biliary air. Distended common bile duct, etiology uncertain. Otherwise negative. No evidence of perforation or other.T. Bili 8.0, AST 248, ALT 235, Alk Phosph. 157. Lipase okay. NPO. Zosyn. - GERD. PPI - Sepsis r/t above. Blood cx pending Zosyn. PLAN: - Plan for ERCP today - Obtain consents - NPO - Cont. Zosyn - Protonix 40mg IV daily - CBC, CMP in am - Supportive care - Further recommendations to follow based on results of above - PT seen and examined by Dr. Nelson and myself and this note is written on his behalf (Loan Da Silva) Physician Comments Seen and examined with JUDIT, s/p ercp with stone removal and stent removal .Admitted with possible cholangitis. ERCP with stent placement planned for today. Continue antibiotics. Will follow, thank you (Kezia Nelson MD) Loan Da Silva Feb 26, 2017 08:38 Kezia Nelson MD Feb 26, 2017 12:24
--- NOTE | 2017-02-26 08:55 | HHI.PR ---
Subjective Remarks in no acute distress. Tmax 103.4. denies abdominal pain, nausea or emesis. d/w the RN and GI. Objective Vitals Vital Signs Date Time Temp Pulse Resp B/P (MAP) Pulse Ox O2 Delivery O2 Flow Rate FiO2 02/26/17 08:00 79 02/26/17 08:00 98.9 72 20 117/58 (77) 98 02/26/17 07:55 98.9 72 20 117/58 (77) 98 02/26/17 07:00 74 02/26/17 06:00 79 02/26/17 06:00 76 02/26/17 04:00 80 22 135/64 (87) 99 02/26/17 04:00 78 02/26/17 04:00 80 02/26/17 02:02 02/26/17 02:00 98.9 87 24 115/57 (76) 96 02/26/17 02:00 84 02/26/17 02:00 87 02/26/17 01:57 98.9 86 20 115/57 (76) 98 02/26/17 00:23 100.8 99 20 137/87 (104) 99 Nasal Cannula 2.00 02/25/17 22:42 95 Nasal Cannula 2.00 02/25/17 22:35 103.4 99 28 161/70 (100) 95 I/O 02/25/17 02/25/17 02/25/17 02/26/17 02/26/17 02/26/17 07:00 15:00 23:00 07:00 15:00 23:00 Intake Total 2855 ml 50 ml Output Total 0 ml Balance 2855 ml 50 ml Intake IV Total 2855 ml 50 ml Output Urine Total 0 ml Result Diagram: 02/26/17 0444 02/26/17 0444 Imaging Last Impressions Abdomen/Pelvis CT 02/25/172227 Signed Impressions: Service Date/Time: Saturday, February 25, 2017 23:21 - CONCLUSION: 1. Patient had an ERCP today and there is contrast in the common bile duct, cystic duct and gallbladder and trace intrahepatic biliary air. Distended common bile duct, etiology uncertain. 2. Otherwise negative. No evidence of perforation or other acute complication. Jesus Cruz MD Objective Remarks GENERAL: This is a well-nourished, well-developed patient, in no apparent distress. CARDIOVASCULAR: Regular rate and regular rhythm without murmurs, gallops, or rubs. RESPIRATORY: Clear to auscultation. Breath sounds equal bilaterally. No wheezes , rales, or rhonchi. GASTROINTESTINAL: Abdomen soft, non-tender, nondistended. Normal, active bowel sounds MUSCULOSKELETAL: Extremities without clubbing, cyanosis, or edema. NEURO: Alert & Oriented x4 to person, place, time, situation. Moves all ext x4 Medications and IVs Current Medications Sodium Chloride 1,000 ml @ 1,000 mls/hr Q1H IV Last administered on 22:47; Start 02/25/17 at 22:28; Stop 02/25/17 at 23:27; Status DC Sodium Chloride (NS Flush) 2 ml UNSCH PRN IV FLUSH FLUSH AFTER USING IV ACCESS ; Start 02/25/17 at 22:30; Stop 02/26/17 at 00:36; Status DC Piperacillin Sod/ Tazobactam Sod 100 ml @ 200 mls/hr ONCE ONCE IV Last administered on 02/25/17 22:47; Start 02/25/17 at 22:45; Stop 02/25/17 at 23 :14; Status DC Sodium Chloride 1,000 ml @ 999 mls/hr BOLUS ONCE IV Last administered on 22:54; Start 02/25/17 at 22:45; Stop 02/25/17 at 23:45; Status DC Acetaminophen (Tylenol Supp) 650 mg ONCE ONCE RECTAL Last administered on 22:55; Start 02/25/17 at 22:45; Stop 02/25/17 at 22:46; Status DC Piperacillin Sod/ Tazobactam Sod 50 ml @ 100 mls/hr Q6H IV Last administered on 02/26/17 05:53; Start 02/26/17 at 05:00 Sodium Chloride 1,000 ml @ 125 mls/hr Q8H IV Last administered on 02/26/17 01:06; Start 02/26/17 at 00:28 Sodium Chloride (NS Flush) 2 ml UNSCH PRN IV FLUSH FLUSH AFTER USING IV ACCESS ; Start 02/26/17 at 00:30 Sodium Chloride (NS Flush) 2 ml BID IV FLUSH ; Start 02/26/17 at 09:00 Acetaminophen (Tylenol) 650 mg Q4H PRN PO TEMP > 100.4; Start 02/26/17 at 00: 30 Ondansetron HCl (Zofran Inj) 4 mg Q6H PRN IVP NAUSEA OR VOMITING Last administered on 02/26/17 02:47; Start 02/26/17 at 00:30 Naloxone HCl (Narcan Inj) 0.4 mg UNSCH PRN IV PUSH SEE LABEL COMMENTS; Start 02/26/17 at 00:30 Senna/Docusate Sodium (Lynda-Colace) 1 tab BID PO ; Start 02/26/17 at 09:00 Magnesium Hydroxide (Milk Of Magnesia Liq) 30 ml Q12H PRN PO Mild constipation ; Start 02/26/17 at 00:30 Sennosides (Senokot) 17.2 mg Q12H PRN PO Moderate constipation; Start at 00:30 Bisacodyl (Dulcolax Supp) 10 mg DAILY PRN RECTAL SEVERE CONSITIPATION; Start 02/26/17 at 00:30 Lactulose (Lactulose Liq) 30 ml DAILY PRN PO SEVERE CONSITIPATION; Start 02/26 at 00:30 Miscellaneous Information Patient in critical care unit? Ass... [id number] Last administered on 02/26/17 04:00; Start 02/26/17 at 04:00 Chlorhexidine Gluconate (Chlorhexidine 2% Cloth) 3 pack DAILY@04 TOPICAL Last administered on 02/26/17 04:00; Start 02/26/17 at 04:00; Stop 03/02/17 at 04 :01 Chlorhexidine Gluconate (Chlorhexidine 2% Cloth) 3 pack UNSCH PRN TOPICAL HYGIENIC CARE; Start 02/26/17 at 04:30; Stop 03/03/17 at 04:20 Pantoprazole Sodium (Protonix Inj) 40 mg ONCE ONCE IV PUSH Last administered on 02/26/17 05:00; Start 02/26/17 at 05:00; Stop 02/26/17 at 05:01; Status DC A/P Assessment and Plan 87-year-old male presents with fever, elevated lactic acid, transaminitis, elevated bilirubin and leukocytosis following ERCP on 02/25/17. - Concern for cholangitis/Sepsis WBC 13.6, temp 103.4, lactic acid 3.7 Transaminitis and elevated total bilirubin Blood cultures pending continue IV Zosyn GI consulted, appreciate recommendations - patient to go for repeat ERCP later today continue IV fluids -DVT prophylaxis with SCD's- pending the planned procedure. Alexis Cheng MD Feb 26, 2017 08:55
[2017-02-26] MEDS: PANTOPRAZOLE SOD 40 MG DELAYED RELEASE TAB PO SCH (09:00)
[2017-02-26] MEDS: SODIUM CHLORIDE 0.9% FLUSH 10 ML FLUSH IV FLUSH SCH ×2 (09:00→22:00)
[2017-02-26] MEDS: DOCUSATE SODIUM 50 MG/SENNA 8.6 MG TAB PO SCH ×2 (09:00→22:00)
--- NOTE | 2017-02-26 12:58 | GIPROC ---
[facility] [address] [facility]. [facility], [address] ERCP PROCEDURE REPORT EXAM DATE: 02/26/2017 PATIENT NAME: Bulmaro Guillen MR #: [id number] BIRTHDATE: 1930 ATTENDING: Kezia Nelson MD ORDER #: [id number] INSTRUCTIONAL DESIGN MANAGER: Daniele Castaneda and Liana Holguin STATUS: inpatient INDICATIONS: The patient is a 87 yr old male here for an ERCP due to abnormal liver function test and suspected ascending cholangitis PROCEDURE PERFORMED: ERCP with stent placement MEDICATIONS: None and Per Anesthesia. CONSENT: The patient understands the risks and benefits of the procedure and understands that these risks include, but are not limited to: sedation, allergic reaction, infection, perforation and/or bleeding. Alternative means of evaluation and treatment include, among others: physical exam, x-rays, and/or surgical intervention. The patient elects to proceed with this endoscopic procedure. medical equipment was checked for proper function. Hand hygiene and appropriate measures for infection prevention was taken. After the risks, benefits and alternatives of the procedure were thoroughly explained, Informed was verified, confirmed and timeout was successfully executed by the treatment team. With the patient in left semi-prone position, medications were administered intravenously.The Pentax [id number] was passed from the mouth into the esophagus and further advanced from the esophagus into the stomach. From stomach scope was directed to the second portion of the duodenum. Major papilla was aligned with the duodenoscope. The scope position was confirmed fluoroscopically. Rest of the findings/therapeutics are given below. The scope was then completely withdrawn from the patient and the procedure completed. The pulse, BP, and O2 saturation were monitored and documented by the physician and the nursing staff throughout the entire procedure. The patient was cared for as planned according to standard protocol. The patient was then discharged to recovery in stable condition and with appropriate post procedure care. Dark bile in CBD. Duct dilated. No filling defects. 10 x 7 fr stent placed. ADVERSE EVENT: There were no complications. IMPRESSIONS: Dark bile in CBD. Duct dilated. No filling defects. 10 x 7 fr stent placed RECOMMENDATIONS: 1. Antibiotics 2. Liver enzymes REPEAT EXAM: Return 4 months ERCP Kezia Nelson MD eSigned: Kezia Nelson MD 02/26/2017 12:58 PM cc:
[2017-02-26] MEDS ORDERED: DO NOT ADM ANY ANTICOAGULANT DRUGS PRN (13:14)
--- NOTE | 2017-02-26 13:21 | RADRPT ---
EXAM DATE/TIME: 02/26/2017 12:49 [place] COMPARISON: GI LAB ERCP, February 25, 2017, 11:46. INDICATIONS : Obstruction; stene placement. FLUORO TIME: 0.6 minutes IMAGE COUNT: 2 CONTRAST: Instilled by Ordering Physician MEDICAL HISTORY : Cardiovascular disease. Gastroesophageal reflux disease. Benign prostatic hyperplasia,Hiatal hernia. Skin cancer. SURGICAL HISTORY : Pacemaker. Right hip surgery ENCOUNTER: Subsequent ACUITY: 1 day PAIN SCORE: Non-responsive. LOCATION: Abdomen. FINDINGS: An ERCP was performed by the ordering physician. The images demonstrate contrast in the common bile duct. No significant filling defects are noted. Fi nal image demonstrates a common bile duct stent in place. CONCLUSION: ERCP as above. Sy Medellin MD on February 26, 2017 at 13:19 Board Certified Radiologist. This report was verified electronically.
[2017-02-27] VITALS (19 sets, daily range): BP systolic 103–134; BP diastolic 52–62; PULSE 67–80; RESP 16–29; TEMP 97.6–99; O2SAT 86–100
[2017-02-27] MEDS: SODIUM CHLOR 0.9% 1000 ML INJ 1,000 ML IV SCH ×3 (03:09→23:33)
[2017-02-27] MEDS: CHLORHEXIDINE GLUCONATE 2 % 1 PACK (2 CLOTHS)(taper/protocol) TOPICAL SCH (04:00)
[2017-02-27] MEDS: PIPERACIL-TAZO 3.375 GM PREMIX 50 ML IV SCH ×3 (06:00→23:31)
[2017-02-27 06:23] LABS: AUTOMATED NEUTROPHIL # 4.4 TH/MM3 (1.8-7.7); BASOPHIL % 0.7 % (0.0-2.0); EOSINOPHIL # 0.1 TH/MM3 (0-0.4); EOSINOPHIL % 2.3 % (0.0-4.0); HEMATOCRIT 24.7 % (39.0-51.0); LYMPH % 18.1 % (9.0-44.0); LYMPHOCYTE # 1.1 TH/MM3 (1.0-4.8); MEAN CELL VOLUME 108.8 FL (80.0-100.0); MEAN CORPUSCULAR HEMOGLOBIN 35.8 PG (27.0-34.0); MEAN CORPUSCULAR HGB CONC 32.9 % (32.0-36.0); MONO % 6.2 % (0.0-8.0); NEUT % 72.7 % (16.0-70.0); PLATELET COUNT 91 TH/MM3 (150-450); RED BLOOD COUNT 2.27 MIL/MM3 (4.50-5.90); RED CELL DISTRIBUTION WIDTH 27.1 % (11.6-17.2)
[2017-02-27 06:35] LABS: HEMO FLAGS AUTO DIFF
[2017-02-27 06:47] LABS: ALT (GPT) 215 U/L (12-78); ANION GAP 6 MEQ/L (5-15); AST (GOT) 150 U/L (15-37); BICARBONATE 25.1 MEQ/L (21.0-32.0); BLOOD UREA NITROGEN 10 MG/DL (7-18); CHLORIDE 109 MEQ/L (98-107); GLOMERULAR FILTRATION RATE 87 ML/MIN (>89); SODIUM (NA) 140 MEQ/L (136-145)
[2017-02-27 06:52] LABS: ALKALINE PHOSPHATASE 142 U/L (45-117); TOTAL BILIRUBIN ADULT 4.1 MG/DL (0.2-1.0)
[2017-02-27 08:03] LABS: BANDS 30 % (0-6); EOSINOPHILS 1 % (0-4); METAMYELOCYTES 1 % (0-1); NEUTROPHIL # MANUAL DIFF 4.5 TH/MM3 (1.8-7.7); POLYS (SEG NEUTROPHILS) 44 % (16-70); WBC DIFF SAMPLE 100
[2017-02-27 08:04] LABS: ACANTHOCYTES OCC (NORMAL); OVALOCYTES 1+ (NORMAL); PLATELET ESTIMATE SMEAR LOW (NORMAL); PLATELET MORPHOLOGY NORMAL (NORMAL); SCAN/DIFF FINAL DIFF MANUAL
[2017-02-27] MEDS: SODIUM CHLORIDE 0.9% FLUSH 10 ML FLUSH IV FLUSH SCH ×2 (08:57→21:00)
[2017-02-27] MEDS: DOCUSATE SODIUM 50 MG/SENNA 8.6 MG TAB PO SCH ×2 (08:57→23:31)
[2017-02-27] MEDS: PANTOPRAZOLE SOD 40 MG DELAYED RELEASE TAB PO SCH (08:57)
--- NOTE | 2017-02-27 09:01 | HHI.PR ---
Subjective Remarks doing better today. denies abdominal pain, nausea or vomiting. no fever. d/w the RN and no acute issues over night. Objective Vitals Vital Signs Date Time Temp Pulse Resp B/P (MAP) Pulse Ox O2 Delivery O2 Flow Rate FiO2 02/27/17 08:21 96 21 02/27/17 06:00 69 02/27/17 04:00 67 02/27/17 04:00 99.0 67 19 116/56 (76) 100 02/27/17 02:00 69 02/27/17 00:00 98.9 69 20 107/52 (70) 98 02/27/17 00:00 69 02/26/17 22:00 71 02/26/17 20:00 71 02/26/17 20:00 98.7 71 26 131/61 (84) 99 02/26/17 18:00 70 02/26/17 16:00 98.9 70 20 102/52 (69) 98 02/26/17 16:00 70 02/26/17 15:54 72 02/26/17 14:00 70 02/26/17 13:45 98.3 68 17 123/58 (79) 98 Nasal Cannula 2 02/26/17 13:30 69 18 124/59 (80) 98 Nasal Cannula 3 02/26/17 13:15 72 20 137/64 (88) 95 Nasal Cannula 3 02/26/17 13:12 97.4 69 17 128/56 (80) 94 Nasal Cannula 3 02/26/17 12:00 97 Nasal Cannula 2 02/26/17 12:00 79 02/26/17 12:00 98.9 72 20 117/58 (77) 98 02/26/17 12:00 97.4 77 18 121/69 (86) 97 02/26/17 10:00 79 I/O 02/26/17 02/26/17 02/26/17 02/27/17 02/27/17 02/27/17 06:59 14:59 22:59 06:59 14:59 22:59 Intake Total 2855 ml 1550 ml 600 ml 240 ml Output Total 0 ml 875 ml 1750 ml 1400 ml Balance 2855 ml 675 ml -1150 ml -1160 ml Intake Oral 600 ml 240 ml IV Total 2855 ml 1050 ml Other 500 ml Output Urine Total 0 ml 875 ml 1750 ml 1400 ml # Bowel Movements 0 Result Diagram: 02/27/17 0546 02/27/17 0546 Imaging Last Impressions GI Procedure 02/26/17 0000 Signed Impressions: Service Date/Time: Sunday, February 26, 2017 12:49 - CONCLUSION: ERCP as above. Sy Medellin MD Abdomen/Pelvis CT 02/25/17 2228 Signed Impressions: Service Date/Time: Saturday, February 25, 2017 23:21 - CONCLUSION: 1. Patient had an ERCP today and there is contrast in the common bile duct, cystic duct and gallbladder and trace intrahepatic biliary air. Distended common bile duct, etiology uncertain. 2. Otherwise negative. No evidence of perforation or other acute complication. Jesus Cruz MD Objective Remarks GENERAL: This is a well-nourished, well-developed patient, in no apparent distress. CARDIOVASCULAR: Regular rate and regular rhythm without murmurs, gallops, or rubs. RESPIRATORY: Clear to auscultation. Breath sounds equal bilaterally. No wheezes , rales, or rhonchi. GASTROINTESTINAL: Abdomen soft, non-tender, nondistended. Normal, active bowel sounds MUSCULOSKELETAL: Extremities without clubbing, cyanosis, or edema. NEURO: Alert & Oriented x4 to person, place, time, situation. Moves all ext x4 Procedures ERCP Medications and IVs Current Medications Sodium Chloride 1,000 ml @ 1,000 mls/hr Q1H IV Last administered on 22:47; Start 02/25/17 at 22:28; Stop 02/25/17 at 23:27; Status DC Sodium Chloride (NS Flush) 2 ml UNSCH PRN IV FLUSH FLUSH AFTER USING IV ACCESS ; Start 02/25/17 at 22:30; Stop 02/26/17 at 00:36; Status DC Piperacillin Sod/ Tazobactam Sod 100 ml @ 200 mls/hr ONCE ONCE IV Last administered on 02/25/17 22:47; Start 02/25/17 at 22:45; Stop 02/25/17 at 23 :14; Status DC Sodium Chloride 1,000 ml @ 999 mls/hr BOLUS ONCE IV Last administered on 22:54; Start 02/25/17 at 22:45; Stop 02/25/17 at 23:45; Status DC Acetaminophen (Tylenol Supp) 650 mg ONCE ONCE RECTAL Last administered on 22:55; Start 02/25/17 at 22:45; Stop 02/25/17 at 22:46; Status DC Piperacillin Sod/ Tazobactam Sod 50 ml @ 100 mls/hr Q6H IV Last administered on 02/27/17 06:00; Start 02/26/17 at 05:00 Sodium Chloride 1,000 ml @ 125 mls/hr Q8H IV Last administered on 02/27/17 06:01; Start 02/26/17 at 00:28 Sodium Chloride (NS Flush) 2 ml UNSCH PRN IV FLUSH FLUSH AFTER USING IV ACCESS ; Start 02/26/17 at 00:30 Sodium Chloride (NS Flush) 2 ml BID IV FLUSH Last administered on 02/26/17 22 :00; Start 02/26/17 at 09:00 Acetaminophen (Tylenol) 650 mg Q4H PRN PO TEMP > 100.4; Start 02/26/17 at 00: 30 Ondansetron HCl (Zofran Inj) 4 mg Q6H PRN IVP NAUSEA OR VOMITING Last administered on 02/26/17 02:47; Start 02/26/17 at 00:30 Naloxone HCl (Narcan Inj) 0.4 mg UNSCH PRN IV PUSH SEE LABEL COMMENTS; Start 02/26/17 at 00:30 Senna/Docusate Sodium (Lynda-Colace) 1 tab BID PO Last administered on 22:00; Start 02/26/17 at 09:00 Magnesium Hydroxide (Milk Of Magnesia Liq) 30 ml Q12H PRN PO Mild constipation ; Start 02/26/17 at 00:30 Sennosides (Senokot) 17.2 mg Q12H PRN PO Moderate constipation; Start at 00:30 Bisacodyl (Dulcolax Supp) 10 mg DAILY PRN RECTAL SEVERE CONSITIPATION; Start 02/26/17 at 00:30 Lactulose (Lactulose Liq) 30 ml DAILY PRN PO SEVERE CONSITIPATION; Start 02/26 at 00:30 Miscellaneous Information Patient in critical care unit? Ass... Q361D .XX Last administered on 02/26/17 04:00; Start 02/26/17 at 04:00 Chlorhexidine Gluconate (Chlorhexidine 2% Cloth) 3 pack DAILY@04 TOPICAL Last administered on 02/27/17 04:00; Start 02/26/17 at 04:00; Stop 03/02/17 at 04 :01 Chlorhexidine Gluconate (Chlorhexidine 2% Cloth) 3 pack UNSCH PRN TOPICAL HYGIENIC CARE; Start 02/26/17 at 04:30; Stop 03/03/17 at 04:20 Pantoprazole Sodium (Protonix Inj) 40 mg ONCE ONCE IV PUSH Last administered on 02/26/17 05:00; Start 02/26/17 at 05:00; Stop 02/26/17 at 05:01; Status DC Pantoprazole Sodium (Protonix) 40 mg DAILY PO ; Start 02/26/17 at 09:00 Miscellaneous Information ALL NURSING DEPARTME... UNSCH PRN .XX SEE LABEL COMMENTS; Start 02/26/17 at 13:14; Stop 02/27/17 at 13:13 A/P Assessment and Plan 87-year-old male presents with fever, elevated lactic acid, transaminitis, elevated bilirubin and leukocytosis following ERCP on 02/25/17. - Concern for cholangitis/Sepsis s/p ERCP with CBD dilatation and stent placement. continue IV Zosyn monitor LFT's continue IV fluids GI following. - anemia/ thrombocytopenia- chronic- will monitor. -DVT prophylaxis with SCD's- transfer to floor. d/w the Alexis Garcia MD Feb 27, 2017 09:01
--- NOTE | 2017-02-27 10:41 | EKG ---
Date Performed: 02/26/2017 Time Performed: 12:24:42 PTAGE: 87 years EKG: Sinus rhythm WITH FIRST DEGREE AV BLOCK RIGHT BUNDLE BRANCH BLOCK ABNORMAL ECG PREVIOUS TRACING : 01/27/2017 21.59 DOCTOR: Carter Mccarthy Interpretating Date/Time 02/27/2017 10:39:31
--- NOTE | 2017-02-27 12:55 | HHI.GIFU ---
Subjective Remarks Sitting on side of bed. Ate 100% lunch. Afebrile. No n/v/abdominal pain. D/ W ERCP findings with patient and . Verbalizes understanding. (Loan Da Silva) Objective Vitals I&O Vital Signs Date Time Temp Pulse Resp B/P (MAP) Pulse Ox O2 Delivery O2 Flow Rate FiO2 02/27/17 08:21 96 21 02/27/17 06:00 69 02/27/17 04:00 67 02/27/17 04:00 99.0 67 19 116/56 (76) 100 02/27/17 02:00 69 02/27/17 00:00 98.9 69 20 107/52 (70) 98 02/27/17 00:00 69 02/26/17 22:00 71 02/26/17 20:00 71 02/26/17 20:00 98.7 71 26 131/61 (84) 99 02/26/17 18:00 70 02/26/17 16:00 98.9 70 20 102/52 (69) 98 02/26/17 16:00 70 02/26/17 15:54 72 02/26/17 14:00 70 02/26/17 13:45 98.3 68 17 123/58 (79) 98 Nasal Cannula 2 02/26/17 13:30 69 18 124/59 (80) 98 Nasal Cannula 3 02/26/17 13:15 72 20 137/64 (88) 95 Nasal Cannula 3 02/26/17 13:12 97.4 69 17 128/56 (80) 94 Nasal Cannula 3 I/O 02/26/17 02/26/17 02/26/17 02/27/17 02/27/17 02/27/17 07:00 15:00 23:00 07:00 15:00 23:00 Intake Total 2855 ml 1550 ml 600 ml 240 ml Output Total 0 ml 875 ml 1750 ml 1400 ml Balance 2855 ml 675 ml -1150 ml -1160 ml Intake Oral 600 ml 240 ml IV Total 2855 ml 1050 ml Other 500 ml Output Urine Total 0 ml 875 ml 1750 ml 1400 ml # Bowel Movements 0 Laboratory Laboratory Tests Test 02/27/17 05:46 White Blood Count 6.0 Red Blood Count 2.27 Hemoglobin 8.1 Hematocrit 24.7 Mean Corpuscular Volume 108.8 Mean Corpuscular Hemoglobin 35.8 Mean Corpuscular Hemoglobin Concent 32.9 Red Cell Distribution Width 27.1 Platelet Count 91 Mean Platelet Volume 10.2 Neutrophils (%) (Auto) 72.7 Lymphocytes (%) (Auto) 18.1 Monocytes (%) (Auto) 6.2 Eosinophils (%) (Auto) 2.3 Basophils (%) (Auto) 0.7 Neutrophils # (Auto) 4.4 Lymphocytes # (Auto) 1.1 Monocytes # (Auto) 0.4 Eosinophils # (Auto) 0.1 Basophils # (Auto) 0.0 CBC Comment AUTO DIFF Differential Total Cells Counted 100 Neutrophils % (Manual) 44 Band Neutrophils % 30 Lymphocytes % 17 Monocytes % 7 Eosinophils % 1 Neutrophils # (Manual) 4.5 Metamyelocytes 1 Differential Comment FINAL DIFF MANUAL Platelet Estimate LOW Platelet Morphology Comment NORMAL Ovalocytes 1+ Acanthocytes OCC Blood Urea Nitrogen 10 Creatinine 0.84 Random Glucose 116 Total Protein 5.8 Albumin 2.7 Calcium Level 7.9 Alkaline Phosphatase 142 Aspartate Amino Transf (AST/SGOT) 150 Alanine Aminotransferase (ALT/SGPT) 215 Total Bilirubin 4.1 Sodium Level 140 Potassium Level 4.0 Chloride Level 109 Carbon Dioxide Level 25.1 Anion Gap 6 Estimat Glomerular Filtration Rate 87 Date/Time Source Procedure Growth Status 02/25/17 22:40 Blood Peripheral Aerobic Blood Culture - Preliminary NO GROWTH IN 2 DAYS Resulted 02/25/17 22:40 Blood Peripheral Anaerobic Blood Culture - Preliminary NO GROWTH IN 2 DAYS Resulted Imaging Last Impressions GI Procedure 02/26/17 0000 Signed Impressions: Service Date/Time: Sunday, February 26, 2017 12:49 - CONCLUSION: ERCP as above. Sy Medellin MD Abdomen/Pelvis CT 02/25/178 Signed Impressions: Service Date/Time: Saturday, February 25, 2017 23:21 - CONCLUSION: 1. Patient had an ERCP today and there is contrast in the common bile duct, cystic duct and gallbladder and trace intrahepatic biliary air. Distended common bile duct, etiology uncertain. 2. Otherwise negative. No evidence of perforation or other acute complication. Jesus Cruz MD Physical Exam HEENT: Normocephalic; atraumatic; no jaundice. CHEST: CTA CARDIAC: RRR. ABDOMEN: Soft, nondistended, nontender; no hepatosplenomegaly; bowel sounds are present in all four quadrants. EXTREMITIES: No clubbing, cyanosis, or edema. SKIN: Normal; no rash; no jaundice. SPA MANAGER: No focal deficits; alert and oriented times three. (Loan Da Silva) Assessment and Plan Plan ASSESSMENT: - Suspected cholangitis, possible biliary obstruction. Hospitalized in January and underwent ERCP with stent placement (02/01) for choledocholithiasis----> ampulla appeared distorted. The ampulla was small and difficult to locate. Dilated common bile duct to 10 mm. Distal common bile duct stricture and impacted stone at the ampulla. Ampulla swollen and inflamed, and questionable mass. 8.5 x 9 cm stent placed ampullary biopsies were obtained. Pathology revealed superficial small bowel mucosa without significant histopathologic abnormality. Had outpatient ERCP with stent extraction and underwent ERCP with sphincterotomy/papillotomy with removal of calculus and stent (02/25/17)----> Dilated CBD, Stent removed. Balloon sweep 15mm x 3. 1 stone removed. Duct flushed with NS at the end. Occlusion cholangiogram performed. He was stable after the procedure and discharged home. He then developed nausea, weakness, and fever of 103.0 and came to ER. CT Scan abdomen and pelvis (02/25/17)---> Patient had an ERCP today and there is contrast in the common bile duct, cystic duct and gallbaldder and trace intrahepatic biliary air. Distended common bile duct, etiology uncertain. Otherwise negative. No evidence of perforation or other. S/P ERCP with stent placement (02/26/17)---> Dark bile in CBD. Duct dilated. No filling defects. 10 x 7 fr stent placed. Rpt. labs with WBC 6.0, T. 4.1, AST 150, ALT 215, ALk PHosph 142. Asymptomatic. Zosyn. - GERD. PPI - Sepsis r/t above. Blood cx no growth in 2 days. Zosyn. PLAN: - MEHDI - Cont. PPI - Cont. Zosyn - LFT in am - Supportive care - Will need repeat ERCP in 4 months - Further recommendations to follow based on results of above - PT seen and examined by Dr. Nelson and myself and this note is written on his behalf (Loan Da Silva) Physician Comments Seen and examined with JUDIT, doing better. s/p ercp with stent. Can move out of imc, Can dc home with gi fu in 02 weeks. (Kezia Nelson MD) Loan Da Silva Feb 27, 2017 12:55 Kezia Nelson MD Feb 27, 2017 14:50
[2017-02-28] VITALS (9 sets, daily range): BP systolic 113–137; BP diastolic 56–65; PULSE 70–77; RESP 18–20; TEMP 98–98.6; O2SAT 94–100
[2017-02-28] MEDS: CHLORHEXIDINE GLUCONATE 2 % 1 PACK (2 CLOTHS)(taper/protocol) TOPICAL SCH (04:00)
[2017-02-28] MEDS: PIPERACIL-TAZO 3.375 GM PREMIX 50 ML IV SCH ×4 (05:10→22:50)
[2017-02-28 07:28] LABS: AUTOMATED NEUTROPHIL # 2.7 TH/MM3 (1.8-7.7); BASOPHIL # 0.1 TH/MM3 (0-0.2); BASOPHIL % 1.1 % (0.0-2.0); EOSINOPHIL # 0.2 TH/MM3 (0-0.4); EOSINOPHIL % 4.6 % (0.0-4.0); HEMATOCRIT 23.2 % (39.0-51.0); LYMPH % 29.7 % (9.0-44.0); LYMPHOCYTE # 1.4 TH/MM3 (1.0-4.8); MEAN CELL VOLUME 107.8 FL (80.0-100.0); MEAN CORPUSCULAR HEMOGLOBIN 36.2 PG (27.0-34.0); MEAN CORPUSCULAR HGB CONC 33.6 % (32.0-36.0); MONO % 8.3 % (0.0-8.0); NEUT % 56.3 % (16.0-70.0); PLATELET COUNT 87 TH/MM3 (150-450); RED BLOOD COUNT 2.15 MIL/MM3 (4.50-5.90); RED CELL DISTRIBUTION WIDTH 27.2 % (11.6-17.2); WHITE BLOOD COUNT 4.8 TH/MM3 (4.0-11.0)
[2017-02-28 07:42] LABS: HEMO FLAGS AUTO DIFF
[2017-02-28 08:00] LABS: INDIRECT BILIRUBIN 0.8 MG/DL (0.0-0.8); TOTAL BILIRUBIN ADULT 1.9 MG/DL (0.2-1.0)
[2017-02-28] MEDS: PANTOPRAZOLE SOD 40 MG DELAYED RELEASE TAB PO SCH (08:30)
[2017-02-28] MEDS: DOCUSATE SODIUM 50 MG/SENNA 8.6 MG TAB PO SCH ×2 (08:30→21:33)
[2017-02-28] MEDS: SODIUM CHLORIDE 0.9% FLUSH 10 ML FLUSH IV FLUSH SCH ×2 (08:31→21:30)
[2017-02-28 08:53] LABS: BANDS 7 % (0-6); BLASTS 1 % (0-0); EOSINOPHILS 2 % (0-4); NEUTROPHIL # MANUAL DIFF 3.1 TH/MM3 (1.8-7.7); OVALOCYTES 1+ (NORMAL); PLATELET ESTIMATE SMEAR LOW (NORMAL); PLATELET MORPHOLOGY NORMAL (NORMAL); POLYS (SEG NEUTROPHILS) 58 % (16-70); SCAN/DIFF FINAL DIFF MANUAL; WBC DIFF SAMPLE 100
[2017-02-28] MEDS: SODIUM CHLOR 0.9% 1000 ML INJ 1,000 ML IV SCH (10:45)
--- NOTE | 2017-02-28 12:16 | HHI.PR ---
Subjective Remarks Follow-up visit Cholangitis, sepsis, CBD dilatation with stent placement, status post ERCP. Patient seen and examined today. At the bedside. at the bedside. Reports he is doing well. states he worries about his , she thought that when he got discharged post procedure with stent removal he will be okay but then he became weak and having fevers. She is now nervous to go home again and be back to the hospital. asked multiple questions regarding the procedure and what happens next. Discuss and explained with and patient regarding course of treatment, patient condition, and follow up. All questions answered. Patient denies pain and discomfort. Denies SOB/ dyspnea. Denies chest pain, palpitations, headaches, dizziness. Denies fevers, chills, n/v/d. Denies dysuria. Objective Vitals Vital Signs Date Time Temp Pulse Resp B/P (MAP) Pulse Ox O2 Delivery O2 Flow Rate FiO2 02/28/17 08:00 98.6 70 18 133/60 (84) 94 02/28/17 04:00 98.0 75 18 137/65 (89) 95 02/28/17 01:58 98 02/28/17 00:00 98.1 76 18 119/57 (77) 94 02/28/17 00:00 Room Air 02/27/17 22:05 77 02/27/17 20:00 Room Air 02/27/17 20:00 98.3 76 18 109/56 (73) 95 02/27/17 17:30 98.5 80 18 130/58 (82) 97 02/27/17 16:00 97.6 79 25 109/61 (77) 96 02/27/17 15:00 69 19 113/59 (77) 97 02/27/17 14:00 71 19 103/56 (72) 95 02/27/17 13:00 72 25 107/53 (71) 96 I/O 02/27/17 02/27/17 02/27/17 02/28/17 02/28/17 02/28/17 07:00 15:00 23:00 07:00 15:00 23:00 Intake Total 240 ml 650 ml 480 ml 1771 ml Output Total 1400 ml 500 ml 1700 ml Balance -1160 ml 650 ml -20 ml 71 ml Intake Oral 240 ml 480 ml 480 ml IV Total 650 ml 1291 ml Output Urine Total 1400 ml 500 ml 1700 ml # Bowel Movements 0 0 Result Diagram: 02/28/17 0627 02/27/17 0546 Imaging Last Impressions GI Procedure 02/26/17 0000 Signed Impressions: Service Date/Time: Sunday, February 26, 2017 12:49 - CONCLUSION: ERCP as above. Sy Medellin MD Abdomen/Pelvis CT 02/25/17 2228 Signed Impressions: Service Date/Time: Saturday, February 25, 2017 23:21 - CONCLUSION: 1. Patient had an ERCP today and there is contrast in the common bile duct, cystic duct and gallbladder and trace intrahepatic biliary air. Distended common bile duct, etiology uncertain. 2. Otherwise negative. No evidence of perforation or other acute complication. Jesus Cruz MD Objective Remarks GENERAL: This is a well-nourished, well-developed patient, in no apparent distress. SKIN: Warm and dry. Slightly jaundiced. HEENT: Normocephalic. Pupils equal round and reactive. Nose without bleeding. Airway patent. NECK: Trachea midline. No JVD. Supple. CARDIOVASCULAR: Regular rate and rhythm without murmurs, gallops, or rubs. RESPIRATORY: Clear to auscultation. Breath sounds equal bilaterally. No wheezes , rales, or rhonchi. GASTROINTESTINAL: Abdomen soft, non-tender, nondistended. Bowel Sounds normoactive x4. MUSCULOSKELETAL: Extremities without clubbing, cyanosis, or edema. NEUROLOGICAL: Awake and alert. Oriented to place, person. MECHOOPDA. No focal neuro deficit. Moves all extremities. Normal speech. 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 Concern for cholangitis Sepsis Transaminitis - WBC 13--> 6.0 --> 4.8 improved - Continue IV Zosyn for now every 6 hours, pantoprazole IV - Status post ERCP with CBD dilatation and stent placement - Monitor LFTs. Improving. - GI following dark bile noted in the CBD with dilated. No filling defects. 10 x 7 [place] stent was placed. Recommends continue PPI, Zosyn, repeat ERCP in 4 months. Can DC home with GI follow-up in 2 weeks. Anemia, chronic - Monitor CBC - Follow in outpatient DVT prop SCD Discharge Planning Plan to DC home tomorrow when clinically improved. Will DC IV and switch over pantoprazole IV to by mouth. Problem Qualifiers (1) Sepsis: Qualified Codes: A41.9 - Sepsis, unspecified organism Natanael Coats Feb 28, 2017 12:16
[2017-03-01] MEDS: SODIUM CHLOR 0.9% 1000 ML INJ 1,000 ML IV SCH (00:05)
[2017-03-01 00:44] VITALS: BP 118/55; PULSE 78; RESP 20; TEMP 97.8; O2SAT 96
[2017-03-01] MEDS: CHLORHEXIDINE GLUCONATE 2 % 1 PACK (2 CLOTHS)(taper/protocol) TOPICAL SCH (04:00)
[2017-03-01 05:07] VITALS: BP 141/66; PULSE 97; RESP 20; TEMP 97.5; O2SAT 100
[2017-03-01] MEDS: PIPERACIL-TAZO 3.375 GM PREMIX 50 ML IV SCH (05:23)
[2017-03-01 08:00] VITALS: PULSE 71
[2017-03-01 08:11] VITALS: BP 140/65; PULSE 70; RESP 19; TEMP 97.4; O2SAT 97
[2017-03-01] MEDS: DOCUSATE SODIUM 50 MG/SENNA 8.6 MG TAB PO SCH (08:49)
[2017-03-01] MEDS: PANTOPRAZOLE SOD 40 MG DELAYED RELEASE TAB PO SCH (08:49)
[2017-03-01] MEDS: SODIUM CHLORIDE 0.9% FLUSH 10 ML FLUSH IV FLUSH SCH (08:49)
[2017-03-01 09:09] LABS: HEMATOCRIT 23.8 % (39.0-51.0); MEAN CELL VOLUME 107.5 FL (80.0-100.0); MEAN CORPUSCULAR HEMOGLOBIN 35.8 PG (27.0-34.0); MEAN CORPUSCULAR HGB CONC 33.3 % (32.0-36.0); PLATELET COUNT 100 TH/MM3 (150-450); RED BLOOD COUNT 2.22 MIL/MM3 (4.50-5.90); RED CELL DISTRIBUTION WIDTH 27.7 % (11.6-17.2); WHITE BLOOD COUNT 4.8 TH/MM3 (4.0-11.0)
[2017-03-01 09:16] LABS: REVIEW FLAG FINAL
[2017-03-01 09:31] LABS: ANION GAP 5 MEQ/L (5-15); AST (GOT) 43 U/L (15-37); BICARBONATE 26.6 MEQ/L (21.0-32.0); BLOOD UREA NITROGEN 8 MG/DL (7-18); CHLORIDE 106 MEQ/L (98-107); GLOMERULAR FILTRATION RATE 80 ML/MIN (>89); POTASSIUM 3.7 MEQ/L (3.5-5.1); SODIUM (NA) 138 MEQ/L (136-145)
[2017-03-01 09:36] LABS: ALKALINE PHOSPHATASE 140 U/L (45-117); ALT (GPT) 113 U/L (12-78); TOTAL BILIRUBIN ADULT 1.8 MG/DL (0.2-1.0)
[2017-03-01] MEDS ORDERED: METR-1 PO (09:36)
[2017-03-01] MEDS ORDERED: CIPR500T2 PO (09:36)
--- NOTE | 2017-03-01 09:39 | HHI.DCPOC ---
Discharge Care Plan Diagnosis: (1) Common bile duct (CBD) stricture (2) Transaminitis (3) Sepsis (4) Cholangitis Goals to Promote Your Health * To prevent worsening of your condition and complications * To maintain your health at the optimal level Directions to Meet Your Goals Take your medications as prescribed Follow your dietary instruction Follow activity as directed Keep your appointments as scheduled Take your immunizations and boosters as scheduled If your symptoms worsen call your PCP, if no PCP go to Urgent Care Center or Emergency Room Smoking is Dangerous to Your Health. Avoid second hand smoke Call the 24-hour hour crisis hotline for domestic abuse at Tristen Kelly DO Mar 01, 2017 09:39
--- NOTE | 2017-03-01 09:46 | HHI.DS ---
Discharge Summary Admission Date Feb 26, 2017 at 00:29 Discharge Date: Mar 01, 2017 Admitting Diagnosis Cholangitis (1) Transaminitis ICD Code: R74.0 - Nonspecific elevation of levels of transaminase and lactic acid dehydrogenase [LDH] (2) Common bile duct (CBD) stricture ICD Code: K83.1 - Obstruction of bile duct (3) Sepsis ICD Code: A41.9 - Sepsis, unspecified organism Status: Acute (4) Cholangitis ICD Code: K83.0 - Cholangitis Status: Acute Procedures ERCP Brief History - From Admission 87-year-old male with a past medical history of macular degeneration, BPH and GERD presents to the ED following ERCP with removal of the stent done on 2016. Sphincterotomy/papillotomy was performed along with a balloon sweep and one stone was removed. Procedure well-tolerated by patient. He was discharged to home following the procedure and became increasingly weak and uncomfortable and febrile to 103. He currently denies any abdominal pain. Does complain of acid reflux. On arrival to the emergency department patient had a rectal temperature of 103.4. He has a leukocytosis with left shift 13.1. His AST/ALT/ alkaline phosphatase was 200/170/175 and a total bilirubin was 6.1. Lactic acid 3.7. CBC/BMP: 03/01/17 0840 03/01/17 0840 Significant Findings Laboratory Tests Test 02/27/17 05:46 02/28/17 06:27 03/01/17 08:40 Red Blood Count 2.27 MIL/MM3 (4.50-5.90) 2.15 MIL/MM3 (4.50-5.90) 2.22 MIL/MM3 (4.50-5.90) Hemoglobin 8.1 GM/DL (13.0-17.0) 7.8 GM/DL (13.0-17.0) 7.9 GM/DL (13.0-17.0) Hematocrit 24.7 % (39.0-51.0) 23.2 % (39.0-51.0) 23.8 % (39.0-51.0) Mean Corpuscular Volume 108.8 FL (80.0-100.0) 107.8 FL (80.0-100.0) 107.5 FL (80.0-100.0) Mean Corpuscular Hemoglobin 35.8 PG (27.0-34.0) 36.2 PG (27.0-34.0) 35.8 PG (27.0-34.0) Red Cell Distribution Width 27.1 % (11.6-17.2) 27.2 % (11.6-17.2) 27.7 % (11.6-17.2) Platelet Count 91 TH/MM3 (150-450) 87 TH/MM3 (150-450) 100 TH/MM3 (150-450) Neutrophils (%) (Auto) 72.7 % (16.0-70.0) Band Neutrophils % 30 % (0-6) 7 % (0-6) Platelet Estimate LOW (NORMAL) LOW (NORMAL) Ovalocytes 1+ (NORMAL) 1+ (NORMAL) Random Glucose 116 MG/DL (74-106) 120 MG/DL (74-106) Total Protein 5.8 GM/DL (6.4-8.2) 6.0 GM/DL (6.4-8.2) Albumin 2.7 GM/DL (3.4-5.0) 2.7 GM/DL (3.4-5.0) 3.0 GM/DL (3.4-5.0) Calcium Level 7.9 MG/DL (8.5-10.1) 8.4 MG/DL (8.5-10.1) Alkaline Phosphatase 142 U/L (45-117) 139 U/L (45-117) 140 U/L (45-117) Aspartate Amino Transf (AST/SGOT) 150 U/L (15-37) 65 U/L (15-37) 43 U/L (15-37) Alanine Aminotransferase (ALT/SGPT) 215 U/L (12-78) 146 U/L (12-78) 113 U/L (12-78) Total Bilirubin 4.1 MG/DL (0.2-1.0) 1.9 MG/DL (0.2-1.0) 1.8 MG/DL (0.2-1.0) Chloride Level 109 MEQ/L (98-107) Estimat Glomerular Filtration Rate 87 ML/MIN (>89) 80 ML/MIN (>89) Monocytes (%) (Auto) 8.3 % (0.0-8.0) Eosinophils (%) (Auto) 4.6 % (0.0-4.0) Monocytes % 10 % (0-8) Blastocytes 1 % (0-0) Direct Bilirubin 1.1 MG/DL (0.0-0.2) Imaging Last Impressions GI Procedure 02/26/17 0000 Signed Impressions: Service Date/Time: Sunday, February 26, 2017 12:49 - CONCLUSION: ERCP as above. Sy Medellin MD Abdomen/Pelvis CT 02/25/17 2228 Signed Impressions: Service Date/Time: Saturday, February 25, 2017 23:21 - CONCLUSION: 1. Patient had an ERCP today and there is contrast in the common bile duct, cystic duct and gallbladder and trace intrahepatic biliary air. Distended common bile duct, etiology uncertain. 2. Otherwise negative. No evidence of perforation or other acute complication. Jesus Cruz MD PE at Discharge GENERAL: This is a well-nourished, well-developed patient, in no apparent distress. SKIN: Warm and dry. Slightly jaundiced. HEENT: Normocephalic. Pupils equal round and reactive. Nose without bleeding. Airway patent. NECK: Trachea midline. No JVD. Supple. CARDIOVASCULAR: Regular rate and rhythm without murmurs, gallops, or rubs. RESPIRATORY: Clear to auscultation. Breath sounds equal bilaterally. No wheezes , rales, or rhonchi. GASTROINTESTINAL: Abdomen soft, non-tender, nondistended. Bowel Sounds normoactive x4. MUSCULOSKELETAL: Extremities without clubbing, cyanosis, or edema. NEUROLOGICAL: Awake and alert. Oriented to place, person. SITKA. No focal neuro deficit. Moves all extremities. Normal speech. Pt update on day of discharge The patient was feeling well and wanted to go home. He was tolerating a diet. His is at the bedside. Their questions were answered. No acute concerns at this time. Hospital Course Cholangitis/ Common bile duct stricture The patient developed nausea, weakness, and fever of 103 and came to the ER. CT Scan abdomen and pelvis (02/25/17)---> Patient had an ERCP today and there is contrast in the common bile duct, cystic duct and gallbaldder and trace intrahepatic biliary air; Distended common bile duct, etiology uncertain; Otherwise negative; No evidence of perforation or other. GI was consulted. He was started on IV Zosyn. S/P ERCP with stent placement (02/26/17)---> Dark bile in CBD; Duct dilated; No filling defects; 10 x 7 fr stent placed. LFTs improved. The pt was tolerating a diet. He will complete a course of Cipro and Flagyl. He will follow up with gastroenterology as an outpt. He will continue taking a PPI. He will repeat LFTs in 3-5 days. Anemia Chronic. Hemoglobin has been stable. He will follow up with GI as an outpt. He will repeat a CBC in 3-5 days. Pt Condition on Discharge: Stable Discharge Disposition: Discharge Home Discharge Time: > 30 minutes Discharge Instructions DIET: Follow Instructions for: Heart Healthy Diet Activities you can perform: Weight Bearing as Román Follow up Referrals: Gastroenterology - 1 Week with Kezia Nelson MD Gastroenterology @ [facility] PCP Follow-up - 1 Week PCP Follow-up @ [facility] New Orders: CBC NO DIFF - 3-5 Days COMP MET PROF (CMP) - 3-5 Days New Medications: Ciprofloxacin (Ciprofloxacin) 500 Mg Tab 500 MG PO BID for Infection for 5 Days, #10 TAB 0 Refills Metronidazole (Flagyl) 500 Mg Tab 500 MG PO TID for Infection for 5 Days, TAB 0 Refills Continued Medications: Cyanocobalamin (Vitamin B-12) 1,000 Mcg Tab 1000 MCG PO DAILY for Nutritional Supplement, #1 BOTTLE 0 Refills Folic Acid (Folic Acid) 0.4 Mg Tab 400 MCG PO DAILY for Nutritional Supplement, TAB 0 Refills Hydroxyzine HCl (Hydroxyzine HCl) 25 Mg Tab 30 MG PO DAILY, TAB 0 Refills Multiple Vitamins W/ Minerals (Preservision Areds) 1 Tab 1 TAB PO DAILY for Nutritional Supplement, TAB 0 Refills Multiple Vitamins W/ Minerals (Preservision Areds) 1 Tab 1 TAB PO BID for Nutritional Supplement, TAB 0 Refills Omeprazole Magnesium (Prilosec) 20 Mg Tab 20 MG PO DAILY Tristen Kelly DO Mar 01, 2017 09:46
== END 2017-03-01 11:50 | disposition home or self-care (01) | DRG 871 ==
LOC: NEPE 22:26 → NEDA 02-26 00:29 → HIMN 02-26 01:40 → N04A 02-27 16:29
PROVIDERS: ADMIT Hospitalist; ATTEND Hospitalist
PROC: 0F798DZ Dilation of Common Bile Duct with Intraluminal Device, Via Natural or Artificial Opening Endoscopic (ICD-10-PCS; principal; 2017-02-26 12:28)
DX: A41.9 Sepsis, unspecified organism (principal); K83.1 Obstruction of bile duct; K83.0 Cholangitis; D64.9 Anemia, unspecified; I48.91 Unspecified atrial fibrillation; D69.6 Thrombocytopenia, unspecified; H35.30 Unspecified macular degeneration; Z94.7 Corneal transplant status; I73.9 Peripheral vascular disease, unspecified; R73.03 Prediabetes; N40.0 Benign prostatic hyperplasia without lower urinary tract symptoms; K21.9 Gastro-esophageal reflux disease without esophagitis; Z96.651 Presence of right artificial knee joint; Z95.0 Presence of cardiac pacemaker; Z87.891 Personal history of nicotine dependence; Z82.49 Family history of ischemic heart disease and other diseases of the circulatory system; R74.0 Nonspecific elevation of levels of transaminase and lactic acid dehydrogenase [LDH]; Z85.828 Personal history of other malignant neoplasm of skin; H91.90 Unspecified hearing loss, unspecified ear; K44.9 Diaphragmatic hernia without obstruction or gangrene
CPT/HCPCS: 74176; 74330; 80053; 80076; 82948; 83605; 83690; 85007; 85025; 85027; 87040; 87641; 93005; 96365; C1769; C2625; C9113; J2405; J2543; J2710; J3010; J7030

== ENCOUNTER → 2017-02-25 | Outpatient (CLI) | payer OTHER ==
[~2017-02-25] VITALS: Ht 182.9 cm; Wt 90.8 kg
[~2017-02-25] MED LIST changes: -CEPH500C3 PO; +CHLORHEXIDINE GLUCONATE 2 % 1 PACK (2 CLOTHS) TOPICAL PRN; +CIPR500T2 PO; +DO NOT ADM ANY ANTICOAGULANT DRUGS PRN; +FOLI400T PO; +HYDR-3133 PO; -HYDR-3533 PO; -HYDR25; +IBUPROFEN 400 MG TAB PO ONE; +INSULIN HUMAN REGULAR 1,000 UNITS/10 ML VIAL SQ PRN; +LACTATED RINGER'S 1000 ML IV PRN; -LUTE6TAB2 PO; +METOPROLOL TARTRATE 25 MG TAB PO PRN; +METR-1 PO; +OCUVTAB4 PO; -OMPR20CCR PO; +POVIDONE IODINE 5% (ANTISEPSIS KIT) 4 APPLICATIONS EACH NARE PRN; +PRIL20TA2 PO; +SODIUM CHLORID 0.9% 500 ML IV PRN; +VITA10002 PO
[2017-02-25 08:36] VITALS: BP 141/70; PULSE 62; RESP 20; TEMP 97; O2SAT 95
--- NOTE | 2017-02-25 11:56 | GIPROC ---
[facility] [address] [facility]. [facility], [address] ERCP PROCEDURE REPORT EXAM DATE: 02/25/2017 PATIENT NAME: Bulmaro Guillen MR #: [id number] BIRTHDATE: 1930 ATTENDING: Kezia Nelson MD ORDER #: [id number] GRADER OPERATOR: Christina Flood and Savannah Blankenship STATUS: outpatient INDICATIONS: The patient is a 87 yr old male here for an ERCP due to established bile duct stone(s) and stent removal PROCEDURE PERFORMED: ERCP with sphincterotomy/papillotomy ERCP with removal of calculus/calculi ERCP with foreign body removal MEDICATIONS: None and Per Anesthesia. CONSENT: The patient understands the risks and benefits of the procedure and understands that these risks include, but are not limited to: sedation, allergic reaction, infection, perforation and/or bleeding. Alternative means of evaluation and treatment include, among others: physical exam, x-rays, and/or surgical intervention. The patient elects to proceed with this endoscopic procedure. medical equipment was checked for proper function. Hand hygiene and appropriate measures for infection prevention was taken. After the risks, benefits and alternatives of the procedure were thoroughly explained, Informed was verified, confirmed and timeout was successfully executed by the treatment team. With the patient in left semi-prone position, medications were administered intravenously.The Pentax [id number] was passed from the mouth into the esophagus and further advanced from the esophagus into the stomach. From stomach scope was directed to the second portion of the duodenum. Major papilla was aligned with the duodenoscope. The scope position was confirmed fluoroscopically. Rest of the findings/therapeutics are given below. The scope was then completely withdrawn from the patient and the procedure completed. The pulse, BP, and O2 saturation were monitored and documented by the physician and the nursing staff throughout the entire procedure. The patient was cared for as planned according to standard protocol. The patient was then discharged to recovery in stable condition and with appropriate post procedure care. A single stone was seen in the distal common bile duct. Dilated CBD, Stent removed. Balloon sweep 15mm x 3. 1 stone removed. Duct flushed with NS at the end. Occlusion cholangiogram performed. ADVERSE EVENT: There were no complications. IMPRESSIONS: Dilated CBD, Stent removed. Balloon sweep 15mm x 3. 1 stone removed. Duct flushed with NS at the end. Occlusion cholangiogram performed RECOMMENDATIONS: Follow-up: GI clinic 2 week(s) REPEAT EXAM: As needed Return as needed for ERCP Kezia Nelson MD eSigned: Kezia Nelson MD 02/25/2017 11:56 AM cc:
[2017-02-25 13:10] VITALS: BP 124/68; PULSE 65; RESP 20; TEMP 98; O2SAT 98
--- NOTE | 2017-02-25 13:13 | RADRPT ---
EXAM DATE/TIME: 02/25/2017 11:46 [facility] COMPARISON: GI LAB ERCP, February 01, 2017, 15:05. INDICATIONS : Obstruction, stent removal, sphincterotomy, gallstones. FLUORO TIME: 1.41 minutes IMAGE COUNT: 2 CONTRAST: Instilled by Ordering Physician MEDICAL HISTORY : Gastroesophageal reflux disease. Diabetes mellitus type II. SURGICAL HISTORY : Pacemaker. Hernia repair. ENCOUNTER: Initial ACUITY: 1 day PAIN SCORE: Non-responsive. LOCATION: Abdomen. FINDINGS: An ERCP was performed by the ordering physician. The images demonstrate contrast in the common bile duct. No definitive filling defects are noted in t he common bile duct and central intrahepatic ducts. CONCLUSION: ERCP as above. Sy Medellin MD on February 25, 2017 at 13:10 Board Certified Radiologist. This report was verified electronically.
== END ==
LOC: HOR 07:37
PROVIDERS: ATTEND Internal Medicine Gastroenterology
DX: K80.51 Calculus of bile duct without cholangitis or cholecystitis with obstruction (principal); N40.0 Benign prostatic hyperplasia without lower urinary tract symptoms; R73.03 Prediabetes; K21.9 Gastro-esophageal reflux disease without esophagitis; Z95.0 Presence of cardiac pacemaker
CPT/HCPCS: 00740; 43264; 43275; 74176; 74330; 80053; 83605; 83690; 87040; 96365; 99291; C1769; J2543; J2710; J3010; J7030

== ENCOUNTER → 2017-05-28 | Outpatient (CLI) | payer OTHER ==
[~2017-05-28] VITALS: Ht 180.3 cm; Wt 91.4 kg
[~2017-05-28] MED LIST changes: +CHLORHEXIDINE GLUCONATE 2 % 1 PACK (2 CLOTHS) TOPICAL PRN; +DO NOT ADM ANY ANTICOAGULANT DRUGS PRN; -GLYCOPYRROLATE 1 MG/5 ML SYRINGE IV PUSH ONE; +HYDR-3133 PO; +LACTATED RINGER'S 1000 ML INJ 1,000 ML IV ONE; +LACTATED RINGER'S 1000 ML IV PRN; +LACTCAP8 PO; +LEVOFLOXACIN 500 MG PREMIX INJ 100 ML IV ONE; +METOPROLOL TARTRATE 25 MG TAB PO PRN; -NEOSTIGMINE 3 MG/3 ML SYR IV ONE; +PHENYLEPH/NS 1000 MCG/10 ML SYR IV ONE; +POVIDONE IODINE 5% (ANTISEPSIS KIT) 4 APPLICATIONS EACH NARE PRN; -ROCURONIUM INJ 50 MG/5 ML SYRINGE IV PUSH ONE; +SODIUM CHLORID 0.9% 500 ML IV PRN; +VITA10002 PO
--- NOTE | 2017-05-28 11:30 | GIPROC ---
[facility] [address] [facility]. [facility], [address] ERCP PROCEDURE REPORT EXAM DATE: 05/28/2017 PATIENT NAME: Bulmaro Guillen MR #: [id number] BIRTHDATE: 1930 ATTENDING: Kezia Nelson MD ORDER #: [id number] BAD WORK GATHERER: Liana Holguin and Irene Humphreys STATUS: outpatient INDICATIONS: The patient is a 87 yr old male here for an ERCP due to suspected or rule out bile duct stones, bile duct stricture, and STENT REMOVAL PROCEDURE PERFORMED: ERCP with balloon dilation Stent removal MEDICATIONS: None and Per Anesthesia. CONSENT: The patient understands the risks and benefits of the procedure and understands that these risks include, but are not limited to: sedation, allergic reaction, infection, perforation and/or bleeding. Alternative means of evaluation and treatment include, among others: physical exam, x-rays, and/or surgical intervention. The patient elects to proceed with this endoscopic procedure. medical equipment was checked for proper function. Hand hygiene and appropriate measures for infection prevention was taken. After the risks, benefits and alternatives of the procedure were thoroughly explained, Informed was verified, confirmed and timeout was successfully executed by the treatment team. With the patient in left semi-prone position, medications were administered intravenously.The Pentax [id number] was passed from the mouth into the esophagus and further advanced from the esophagus into the stomach. From stomach scope was directed to the second portion of the duodenum. Major papilla was aligned with the duodenoscope. The scope position was confirmed fluoroscopically. Rest of the findings/therapeutics are given below. The scope was then completely withdrawn from the patient and the procedure completed. The pulse, BP, and O2 saturation were monitored and documented by the physician and the nursing staff throughout the entire procedure. The patient was cared for as planned according to standard protocol. The patient was then discharged to recovery in stable condition and with appropriate post procedure care. The ampulla was located the second portion of the duodenum. The ampulla appeared normal. A previously placed stent was seen extending from the orifice. There was a dilation of the CBD. Previous stent snared and removed. Ampulla dilated with 8mm Max pas balloon to 10 BIBI for 30 seconds. Some bleeding at the ampulla, ceased spontaneously. Cbd washed generously with NS. No filling defects appreciated. ADVERSE EVENT: There were no complications. IMPRESSIONS: 1. Normal appearing ampulla. A previously placed ampulla stent was seen extending from the orifice 2. Previous stent snared and removed. Ampulla dilated with 8mm Max pas balloon to 10 BIBI for 30 seconds. Some bleeding at the ampulla, ceased spontaneously. Cbd washed generously with NS. No filling defects appreciated RECOMMENDATIONS: 1. Antibiotics 2. Liver enzymes REPEAT EXAM: Return as needed for ERCP Kezia Nelson MD eSigned: Kezia Nelson MD 05/28/2017 11:29 AM cc: PATIENT NAME: Bulmaro Guillen MR#: [id number]
[2017-05-28 13:20] VITALS: BP 163/77; PULSE 67; RESP 18; TEMP 98; O2SAT 100
--- NOTE | 2017-05-28 15:06 | RADRPT ---
EXAM DATE/TIME: 05/28/2017 11:23 [place] COMPARISON: GI LAB ERCP, February 26, 2017, 12:49. INDICATIONS : Obstruction, stent removal. FLUORO TIME: 1.47 minutes IMAGE COUNT: 2 CONTRAST: Instilled by Ordering Physician MEDICAL HISTORY : Cardiovascular disease. Gastroesophageal reflux disease. Hiatal hernia. SURGICAL HISTORY : Pacemaker. ENCOUNTER: Initial ACUITY: 1 day PAIN SCORE: Non-responsive. LOCATION: Right upper quadrant FINDINGS: An ERCP was performed by the ordering physician. The images demonstrate contrast in a dilated common bile duct and dilated intrahepatic ducts with mario e drainage on the 2nd image. Don't send out CONCLUSION: ERCP as above. John Vee MD on May 28, 2017 at 15:04 Board Certified Radiologist. This report was verified electronically.
== END ==
LOC: HSDC 07:54
PROVIDERS: ATTEND Internal Medicine Gastroenterology
DX: K83.1 Obstruction of bile duct (principal); K21.9 Gastro-esophageal reflux disease without esophagitis; I25.10 Atherosclerotic heart disease of native coronary artery without angina pectoris; K44.9 Diaphragmatic hernia without obstruction or gangrene; Z95.0 Presence of cardiac pacemaker
CPT/HCPCS: 00732; 43275; 43277; 74330; C1769; J1956; J2370; J7120

== ENCOUNTER → 2017-05-30 | Day surgery (SDC) | payer OTHER ==
[~2017-05-30] VITALS: Ht 182.9 cm; Wt 92.0 kg
[~2017-05-30] MED LIST changes: +ACETAMINOPHEN/HYDROcodone 325 MG/5 MG TAB PO ONE; +BUPIVACAINE/EPINEPHRINE 0.25% 50 ML VIAL ONE; +DEXAMETHASONE SOD PHOS 4 MG/ML VIAL IV ONE; +GLYCOPYRROLATE 1 MG/5 ML SYRINGE IV PUSH ONE; -LACTATED RINGER'S 1000 ML INJ 1,000 ML IV ONE; -LEVOFLOXACIN 500 MG PREMIX INJ 100 ML IV ONE; +NEOSTIGMINE 5 MG/5 ML SYRINGE IV PUSH ONE; +ONDANSETRON HCL 4 MG/2 ML VIAL IV ONE; +ONDANSETRON HCL 4 MG/2 ML VIAL IV PUSH PRN; -PHENYLEPH/NS 1000 MCG/10 ML SYR IV ONE; +ROCURONIUM INJ 50 MG/5 ML SYRINGE IV PUSH ONE; +ceFAZolin 2 GM PREMIX 50 ML ONE
--- NOTE | 2017-05-30 07:47 | HHI.PR ---
Immediate Post Op Note Procedure Date: May 30, 2017 Pre Op Diagnosis: hx of choledocholithiasis, cholangitis Post Op Diagnosis: same Surgeon: James Mcbride MD Barrel Polisher Inside(s): kaylyn Procedure: lap na Findings: distended gallbladder Complications: none Specimen(s) removed: gallbladder Estimated blood loss: 5cc Anesthesia: General Drains: None Patient to: PACU Patient Condition: Good James Mcbride MD May 30, 2017 07:47
[2017-05-30 07:58] LABS: AUTOMATED NEUTROPHIL # 3.6 TH/MM3 (1.8-7.7); BASOPHIL % 0.2 % (0.0-2.0); EOSINOPHIL # 0.2 TH/MM3 (0-0.4); EOSINOPHIL % 2.5 % (0.0-4.0); HEMATOCRIT 28.7 % (39.0-51.0); HEMOGLOBIN 9.5 GM/DL (13.0-17.0); LYMPHOCYTE # 2.4 TH/MM3 (1.0-4.8); MEAN CELL VOLUME 110.1 FL (80.0-100.0); MEAN CORPUSCULAR HEMOGLOBIN 36.5 PG (27.0-34.0); MEAN CORPUSCULAR HGB CONC 33.2 % (32.0-36.0); MEAN PLATELET VOLUME 8.8 FL (7.0-11.0); MONOCYTE # 0.5 TH/MM3 (0-0.9); NEUT % 53.3 % (16.0-70.0); PLATELET COUNT 148 TH/MM3 (150-450); RED BLOOD COUNT 2.61 MIL/MM3 (4.50-5.90); WHITE BLOOD COUNT 6.7 TH/MM3 (4.0-11.0)
[2017-05-30 08:18] LABS: ALBUMIN 3.6 GM/DL (3.4-5.0); BICARBONATE 26.5 MEQ/L (21.0-32.0); CALCIUM 8.4 MG/DL (8.5-10.1); CREATININE 0.81 MG/DL (0.60-1.30); DIRECT BILIRUBIN ADULT 0.2 MG/DL (0.0-0.2)
[2017-05-30 08:20] LABS: INDIRECT BILIRUBIN 0.8 MG/DL (0.0-0.8); TOTAL PROTEIN 7.2 GM/DL (6.4-8.2)
[2017-05-30 08:34] LABS: BANDS 7 % (0-6); CORRECTED NUCLEATED RBC 1 /100 WBC (0-0); LYMPHOCYTES 46 % (9-44); MONOCYTES 6 % (0-8); MYELOCYTES 1 % (0-0); NEUTROPHIL # MANUAL DIFF 3.2 TH/MM3 (1.8-7.7); NUCLEATED RED BLOOD CELL 1 (0-0); POLYS (SEG NEUTROPHILS) 40 % (16-70)
[2017-05-30 08:35] LABS: ACANTHOCYTES OCC (NORMAL); KERATOCYTES OCC (NORMAL); OVALOCYTES 1+ (NORMAL)
[2017-05-30 11:12] VITALS: BP 142/67; PULSE 64; RESP 20; TEMP 97.7; O2SAT 95
--- NOTE | 2017-06-01 21:09 | MP ---
cc: WILLIAM MCBRIDE MD DATE OF SURGERY 05/30/17 PREOPERATIVE DIAGNOSIS Choledocholithiasis, cholangitis, history of ERCP with common bile duct stent placement. POSTOPERATIVE DIAGNOSIS Choledocholithiasis, cholangitis, history of ERCP with common bile duct stent placement. PROCEDURE Laparoscopic cholecystectomy SURGEON Dr. Eva Mcbride NURSE INSTRUCTOR Ruma ANESTHESIA GETA IV FLUIDS 400 mL ESTIMATED BLOOD LOSS 5 mL. DRAINS None. COMPLICATIONS None. WOUND CLASSIFICATION Clean contaminated SPECIMEN Gallbladder FINDINGS Distended gallbladder. INDICATIONS The patient is an 86 year old male who presented in January with sepsis and cholangitis. He had further workup with concern for, bile duct stones status post ERCP with a stent placement and decompression. The patient had recent stent removal and therefore decision was made for operative intervention including laparoscopic cholecystectomy. Discussed with the patient in detail who understood and agreed and discussed with as well. PROCEDURE IN DETAIL The patient was taken to the operating room, placed in supine position. He was prepped and draped in usual sterile fashion after induction of general endotracheal anesthesia. Brief time-out done stating correct patient, procedure, surgical site and all were in agreement with this. Attention first directed to the umbilicus where a stab eleanor incision was made after injection of local anesthetic. A Visiport 5-mm was used to enter the abdomen safely. The abdomen was insufflated to 15 mm pneumoperitoneum. On cursory inspection, no evidence of injury. The other ports placed were epigastric 12 mm followed by two 5 mm right subcostal ports. The patient was placed in reverse Trendelenburg, airplaned to the left. The gallbladder was identified and retracted cephalad. The cystic duct and cystic artery were dissected out in the usual fashion. It was noted to be the only structures in the gallbladder. Two clips placed proximal and one distal the cystic duct and cystic artery and one clip placed distally and this used to transect the cystic duct and the cystic artery. Hook electro Bovie cautery was used to remove the gallbladder from the gallbladder fossa. Gallbladder was removed from the epigastric port. Hemostasis was obtained to the gallbladder fossa without evidence of biliary leaking or bleeding. Pneumoperitoneum removed. Ports were removed. Pneumoperitoneum was removed. The epigastric port was closed with a [id number] 0 Vicryl. The incision of skin was closed with subcuticular 4-0 Monocryl sutures. Sterile dressings placed including Mastisol and Steri-Strips. All lap and instrument counts were correct at the end of procedure. The patient tolerated procedure well. There was no intraoperative complication. The patient was extubated and taken stable to the PACU. MD RONNY Higgins/ /11:13 AM /8:57 PM CHELSEA
== END | disposition home or self-care (01) ==
LOC: HSDC 05:52
PROVIDERS: ATTEND Surgery
DX: K80.64 Calculus of gallbladder and bile duct with chronic cholecystitis without obstruction (principal); K83.0 Cholangitis; I48.91 Unspecified atrial fibrillation; N40.0 Benign prostatic hyperplasia without lower urinary tract symptoms; K21.9 Gastro-esophageal reflux disease without esophagitis
CPT/HCPCS: 00790; 47562; 80048; 80076; 85007; 85027; 88304; J0690; J1100; J2405; J2710; J3010

== ENCOUNTER 2017-10-10 05:30 | Inpatient (IN) ==
--- NOTE | 2017-10-10 06:33 | XR ---
EXAM DATE: 10/10/2017 6:28 AM EDT AGE/SEX: 87 years / Male INDICATIONS: Upper chest pain for 6 hours CLINICAL DATA: This is the patient's initial encounter. Patient reports that signs and symptoms have been present for 1 day and indicates a pain score of 6/10. MEDICAL/SURGICAL HISTORY: . Cardiovascular disease. Gastroesophageal reflux disease. Benign pro static hyperplasia, (BPH)Hiatal hernia. Skin cancer. Pacemaker. COMPARISON: . FINDINGS: The lungs are symmetrically aerated. Minimal left basilar opacity similar to prior. Both hemidiaphrag ms well delineated. Cardiac pacer leads unchanged. Mild cardiomegaly. CONCLUSION: Stable appearance of the lungs with mild left basilar atelectasis. Electronically signed by: John Vee MD 10/10/2017 6:31 AM EDT
[2017-10-10 06:43] LABS: Baso # (Auto) 0.1 th/mm3 (0.0-0.2); Baso % (Auto) 1.1 % (0.0-2.0); Eos % (Auto) 0.2 % (0.0-4.0); Hematocrit 29.9 % (39.0-51.0); Hemoglobin 9.7 gm/dL (13.0-17.0); Lymph % (Auto) 8.9 % (9.0-44.0); Mean Corpuscular HGB Conc 32.4 % (32.0-36.0); Mean Corpuscular Hemoglobin 35.6 pg (27.0-34.0); Mean Corpuscular Volume 109.8 fL (80.0-100.0); Mean Platelet Volume 9.6 fL (7.0-11.0); Mono # (Auto) 0.5 th/mm3 (0.0-0.9); Mono % (Auto) 4.1 % (0.0-8.0); Neut # (Auto) 10.2 th/mm3 (1.8-7.7); Neut % (Auto) 85.7 % (16.0-70.0); Platelet Count 140 th/mm3 (150-450); Red Blood Count 2.73 mil/mm3 (4.50-5.90); Red Cell Distribution Width 28.1 % (11.6-17.2); White Blood Count 11.9 th/mm3 (4.0-11.0)
[2017-10-10 06:59] LABS: Activated Partial Thrombo Time 25.5 sec (24.3-30.1); Prothrombin Time 10.5 sec (9.8-11.6)
--- NOTE | 2017-10-10 07:02 | ED ---
HPI General Chief Complaint: Chest Pain Stated Complaint: chest pain Time Seen by Provider: 10/10/17 06:10 Source: patient and family Mode of arrival: ambulatory Limitations: no limitations History of Present Illness MD complaint: chest pain Complete Quality Measures for STEMI Alert Patients STEMI Alert: No Onset (ago): hour(s) (3) Duration: now resolved Onset: during rest Pain location: left chest Severity: moderate Quality: sharp Pain radiation: back Relieving factors: nothing Exacerbating factors: nothing Associated symptoms: dyspnea and other (insomnia) Related Data Home Medications Medication Instructions Recorded Confirmed hydroxyzine HCl 10/10/17 omeprazole magnesium [Prilosec OTC] 20 mg PO DAILY 10/10/17 10/10/17 Allergies Allergy/AdvReac Type Severity Reaction Status Date / Time aspirin Allergy Severe Hives Verified 05/30/17 07:32 oxaprozin Allergy Severe BRUISES Verified 05/30/17 07:32 Review of Systems Except as stated in HPI: all other systems reviewed are negative Constitutional Denies fever(s) [facility] Medical History Medical History GERD (gastroesophageal reflux disease) (Acute) Hip fracture, right (Acute) Pacemaker (Acute) Surgical History Surgical History H/O hernia repair (Acute) History of knee replacement (Acute) Hx of cholecystectomy (Acute) Social History Social History Second Hand Smoke Exposure: No Smoking Status: Never smoker How Often Do You Have a Drink Containing Alcohol: Never Recent Travel in [facility] within the Last 8 Weeks: No Recent Out of Country Travel within the Last 8 Weeks: No Immunization History Tetanus Immunization: <5 Years Hx Influenza Vaccine This Season: Yes Exam Narrative Exam Narrative: GENERAL: 87 yo M, WNWD, NAD SKIN: Focused skin assessment warm/dry. HEAD: Atraumatic. Normocephalic. EYES: Pupils equal and round. No scleral icterus. No injection or drainage. ENT: No nasal bleeding or discharge. Mucous membranes pink and moist. NECK: Trachea midline. No JVD. CARDIOVASCULAR: Regular rate and rhythm. No murmur appreciated. RESPIRATORY: No accessory muscle use. Clear to auscultation. Breath sounds equal bilaterally. GASTROINTESTINAL: Abdomen soft, non-tender, nondistended. Hepatic and splenic margins not palpable. MUSCULOSKELETAL: No obvious deformities. No clubbing. No cyanosis. No edema. NEUROLOGICAL: Awake and alert. No obvious cranial nerve deficits. Motor grossly within normal limits. Normal speech. PSYCHIATRIC: Appropriate mood and affect; insight and judgment normal. Course Consultations Consultation #1: dr barraza will follow along Consultation #2: dr jackson agrees to admit Initial Documented Vital Signs Temperature 98.5 F 10/10/17 05:33 Pulse Rate 84 10/10/17 05:33 Respiratory Rate 20 10/10/17 05:33 Blood Pressure 138/62 10/10/17 05:33 Pulse Oximetry 98 10/10/17 05:33 Last Documented Vital Signs Temperature 99.7 F H 10/10/17 10:17 Pulse Rate 92 H 10/10/17 11:00 Respiratory Rate 18 10/10/17 11:00 Blood Pressure 145/70 H 10/10/17 11:00 Pulse Oximetry 98 10/10/17 11:00 Sign Out Sign Out Data: Patient Sign Out occurred on 10/10/17 at 08:12. Patient's care was discussed, and care was transferred from Roel Rae MD to Sandee Zuñiga MD. Sign Out Comment: Chest pain work up started. Please disposition patient pending results of work up. Last updated by Roel Rae MD at 10/10/17 07:03 Post-Handoff Eval: 87 y/o male who is now developing a fever and has elevated LFTs. Discuss with GI about further workup and given Zosyn and will admit to the hospital for further care. Patient and updated Medical Decision Making Lab Data Lab results reviewed: Yes I reviewed the patient's lab results. Result diagrams: 10/10/17 06:13 10/10/17 06:13 Lab Results 10/10/17 10/10/17 10/10/17 Range/Units 06:13 06:13 06:13 WBC 11.9 H (4.0-11.0) th/mm3 RBC 2.73 L (4.50-5.90) mil/mm3 Hgb 9.7 L (13.0-17.0) gm/dL Hct 29.9 L (39.0-51.0) % MCV 109.8 H (80.0-100.0) fL MCH 35.6 H (27.0-34.0) pg MCHC 32.4 (32.0-36.0) % RDW 28.1 H (11.6-17.2) % Plt Count 140 L (150-450) th/mm3 MPV 9.6 (7.0-11.0) fL Prelim Diff (Auto) Slide review pending Neut % (Auto) 85.7 H (16.0-70.0) % Lymph % (Auto) 8.9 L (9.0-44.0) % Tate % (Auto) 4.1 (0.0-8.0) % Eos % (Auto) 0.2 (0.0-4.0) % Baso % (Auto) 1.1 (0.0-2.0) % Neut # (Auto) 10.2 H (1.8-7.7) th/mm3 Lymph # (Auto) 1.0 (1.0-4.8) th/mm3 Tate # (Auto) 0.5 (0.0-0.9) th/mm3 Eos # (Auto) 0.0 (0.0-0.4) th/mm3 Baso # (Auto) 0.1 (0.0-0.2) th/mm3 WBC Differential Manual diff final Seg Neuts % (Manual) 62 (16-70) % Band Neuts % (Manual) 27 H (0-6) % Lymphocytes % (Manual) 6 L (9-44) % Monocytes % (Manual) 5 (0-8) % Abs Neuts (Manual) 10.6 H (1.8-7.7) th/mm3 Nucleated RBCs/100 WBC 2 H (0-0) /100 WBC Differential Comment . Platelet Estimate Low L (Normal) Platelet Morphology Normal (Normal) Tear Drop Cells 1+ H (None) Ovalocytes 1+ H (None) Acanthocytes (Spur) Occ H (None) Keratocytes Occ H (None) PT 10.5 (9.8-11.6) sec INR 1.0 Ratio APTT 25.5 (24.3-30.1) sec Sodium 141 (136-145) meq/L Potassium 4.3 (3.5-5.1) meq/L Chloride 106 (98-107) meq/L Carbon Dioxide 25.7 (21.0-32.0) meq/L Anion Gap 9 (5-15) meq/L BUN 12 (7-18) mg/dL Creatinine 1.07 (0.60-1.30) mg/dL Estimated GFR 66 L (>89) mL/min Random Glucose 198 H (74-106) mg/dL Lactic Acid (0.4-2.0) mmol/L Calcium 8.3 L (8.5-10.1) mg/dL Magnesium 1.8 (1.5-2.5) mg/dL Total Bilirubin 4.1 H (0.2-1.0) mg/dL AST 211 H (15-37) U/L ALT 143 H (12-78) U/L Alkaline Phosphatase 167 H (45-117) U/L Total Creatine Kinase 52 (39-308) U/L Troponin I Less than 0.02 L (0.02-0.05) ng/mL Total Protein 7.3 (6.4-8.2) g/dL Albumin 3.9 (3.4-5.0) g/dL Lipase 153 (73-393) U/L Urine Color (Yellw/Straw) Urine Clarity (Clear) Urine pH (5.0-8.5) Ur Specific [place] (1.002-1.035) Urine Protein (Neg-Trace) mg/dL Urine Glucose (UA) (Negative) mg/dL Urine Ketones (Negative) mg/dL Urine Occult Blood (Negative) Urine Nitrate (Negative) Urine Bilirubin (Negative) Urine Ictotest (Negative) Urine Urobilinogen (Less than 2) mg/dL Ur Leukocyte Esterase (Negative) Urine RBC (0-3) /hpf Urine WBC (0-5) /hpf Ur Squamous Epith Cells (0-5) /hpf Urine Mucus (Occasional) /lpf 10/10/17 10/10/17 Range/Units 10:30 12:29 WBC (4.0-11.0) th/mm3 RBC (4.50-5.90) mil/mm3 Hgb (13.0-17.0) gm/dL Hct (39.0-51.0) % MCV (80.0-100.0) fL MCH (27.0-34.0) pg MCHC (32.0-36.0) % RDW (11.6-17.2) % Plt Count (150-450) th/mm3 MPV (7.0-11.0) fL Prelim Diff (Auto) Neut % (Auto) (16.0-70.0) % Lymph % (Auto) (9.0-44.0) % Tate % (Auto) (0.0-8.0) % Eos % (Auto) (0.0-4.0) % Baso % (Auto) (0.0-2.0) % Neut # (Auto) (1.8-7.7) th/mm3 Lymph # (Auto) (1.0-4.8) th/mm3 Tate # (Auto) (0.0-0.9) th/mm3 Eos # (Auto) (0.0-0.4) th/mm3 Baso # (Auto) (0.0-0.2) th/mm3 WBC Differential Seg Neuts % (Manual) (16-70) % Band Neuts % (Manual) (0-6) % Lymphocytes % (Manual) (9-44) % Monocytes % (Manual) (0-8) % Abs Neuts (Manual) (1.8-7.7) th/mm3 Nucleated RBCs/100 WBC (0-0) /100 WBC Differential Comment Platelet Estimate (Normal) Platelet Morphology (Normal) Tear Drop Cells (None) Ovalocytes (None) Acanthocytes (Spur) (None) Keratocytes (None) PT (9.8-11.6) sec INR Ratio APTT (24.3-30.1) sec Sodium (136-145) meq/L Potassium (3.5-5.1) meq/L Chloride (98-107) meq/L Carbon Dioxide (21.0-32.0) meq/L Anion Gap (5-15) meq/L BUN (7-18) mg/dL Creatinine (0.60-1.30) mg/dL Estimated GFR (>89) mL/min Random Glucose (74-106) mg/dL Lactic Acid 3.0 H (0.4-2.0) mmol/L Calcium (8.5-10.1) mg/dL Magnesium (1.5-2.5) mg/dL Total Bilirubin (0.2-1.0) mg/dL AST (15-37) U/L ALT (12-78) U/L Alkaline Phosphatase (45-117) U/L Total Creatine Kinase (39-308) U/L Troponin I (0.02-0.05) ng/mL Total Protein (6.4-8.2) g/dL Albumin (3.4-5.0) g/dL Lipase (73-393) U/L Urine Color [place] (Yellw/Straw) Urine Clarity Clear (Clear) Urine pH 7.0 (5.0-8.5) Ur Specific [place] 1.031 (1.002-1.035) Urine Protein Negative (Neg-Trace) mg/dL Urine Glucose (UA) 50 (Negative) mg/dL Urine Ketones Negative (Negative) mg/dL Urine Occult Blood Negative (Negative) Urine Nitrate Negative (Negative) Urine Bilirubin Small H (Negative) Urine Ictotest Positive H (Negative) Urine Urobilinogen 4 or greater (Less than 2) mg/dL Ur Leukocyte Esterase Negative (Negative) Urine RBC Less than 1 (0-3) /hpf Urine WBC 1 (0-5) /hpf Ur Squamous Epith Cells <1 (0-5) /hpf Urine Mucus Few H (Occasional) /lpf Imaging Data Radiologist's impression: ITS Impressions Chest X-Ray 10/10/17 06:10 CONCLUSION: Stable appearance of the lungs with mild left basilar atelectasis. Abdomen/Pelvis CT 10/10/17 08:13 CONCLUSION: 1. No acute CT abnormality in the abdomen or pelvis. 2. Status post cholecystectomy with prominent common bile duct typically due to postcholecystectomy reservoir effect. However, patient's common bile duct was similarly dilated prior to cholecystectomy on prior CT exam. Etiology is therefore unclear. 3. Normal appendix. 4. Colonic diverticulosis without definitive evidence for diverticulitis. 5. 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 6. Additional ancillary findings, as above. Discharge Plan Discharge Disposition Patient Disposition: 30 Still Patient Discharge Details Discharge Problem: Sepsis, Atypical chest pain, Elevated LFTs Physicians Team ED Provider: Sandee Zuñiga Primary Care Provider: Bimal Cottrell Attending Provider: Ana Jackson Discharge Interventions Interventions: Vital Signs Last Done: 10/10/17 05:37 Status ED Status: Admitted Patient
[2017-10-10 07:23] LABS: Alanine Aminotransferase 143 U/L (12-78); Albumin 3.9 g/dL (3.4-5.0); Alkaline Phosphatase 167 U/L (45-117); Anion Gap 9 meq/L (5-15); Blood Urea Nitrogen 12 mg/dL (7-18); Calcium 8.3 mg/dL (8.5-10.1); Carbon Dioxide 25.7 meq/L (21.0-32.0); Chloride 106 meq/L (98-107); Glomerular Filtration Rate 66 mL/min (>89); Glucose,Random 198 mg/dL (74-106); Lipase 153 U/L (73-393); Magnesium 1.8 mg/dL (1.5-2.5); Sodium 141 meq/L (136-145); Total Protein 7.3 g/dL (6.4-8.2)
[2017-10-10 07:27] LABS: Aspartate Aminotransferase 211 U/L (15-37); Creatine Kinase 52 U/L (39-308); Potassium 4.3 meq/L (3.5-5.1)
[2017-10-10 07:48] LABS: Lymphocytes 6 % (9-44); Monocytes 5 % (0-8); Tallied Nucleated RBC 2 (0-0)
[2017-10-10 07:49] LABS: Acanthocytes Occ; Ovalocytes 1+; Platelet Morphology Normal (Normal); Tear Drop Cells 1+
[2017-10-10] MEDS ORDERED: Acetaminophen 325 MG Tablet PO ONE (10:14)
[2017-10-10] MEDS ORDERED: Piperacil/Tazo 3.375 GM Premix 50 ML IV.SIG ONE (11:53)
[2017-10-10] MEDS ORDERED: Sodium Chlor 0.9% Inj 500 ML IV.SIG ONE (11:53)
[2017-10-10 13:26] LABS: Bilirubin,Urine Small (Negative); Clarity,Urine Clear (Clear); Color,Urine Amber (Yellw/Straw); Glucose,Urine (UA) 50 mg/dL (Negative); Leukocyte Esterase,Urine Negative (Negative); Mucus,Urine Few /lpf (Occasional); Nitrite,Urine Negative (Negative); Specific Gravity,Urine 1.031 (1.002-1.035); Squamous Epithelial Cell,Urine <1 /hpf (0-5); Urobilinogen,Urine 4 or Greater mg/dL (Less than 2)
[2017-10-10 13:35] LABS: Ictotest,Urine Positive (Negative)
--- NOTE | 2017-10-10 14:21 | P.CONGI ---
History of Present Illness Consult date: 10/10/17 Consult reason: Elevated LFTs Chief complaint: chest pain History of Present Illness: This is a 87 yo M with PMH significant for macular degeneration, BPH, and GERD who presented to the ER this morning with complaints of chest pain, fever, and chills. Pt reports chest pain began last night after eating a snack and going to bed, did not sleep all night. States pain has resolved since coming to the emergency department. Denies associated nausea and vomiting. Denies acid reflux , abdominal pain, and changes in bowel habits. In ER pt was found to have elevated LFTs. He denies personal history and family history of liver issues. Of note, pt had history of choledocholithiasis in February 2017 underwent outpatient ERCP with stone removal and stent placement. Admitted to the hospital later that day with fever and suspected cholangitis, stent was replaced Feb 26. Pt had most recent ERCP on May 28 of this year --> Normal appearing ampulla. A previously placed ampulla stent was seen extending from the orifice. Previous stent snared and removed. Ampulla dilated with 8mm Max pas balloon to 10 BIBI for 30 seconds. Some bleeding at the ampulla, ceased spontaneously. CBD washed generously with NS. No filling defects. Pt denies ETOH, new prescription medication, OTC herbs and supplements. Denies tattoos, history of IV drug use. Has had same sexual partner for over 40 years. Review of Systems Constitutional: Reports chills, Reports fever(s) Cardiovascular: Reports chest pain Gastrointestinal: Denies abdominal pain, Denies nausea, Denies vomiting PMFSH - History History Provided By: Patient - Medical History Medical History: Medical History (Last Updated 10/10/17 @ 05:36 by Charlie Damian) GERD (gastroesophageal reflux disease) Hip fracture, right Pacemaker - Surgical History Surgical History: Surgical History (Last Updated 10/10/17 @ 05:36 by Charlie Damina) H/O hernia repair History of knee replacement Hx of cholecystectomy - Tobacco History Second Hand Smoke Exposure: No Smoking Status: Never smoker - Alcohol History How Often Do You Have a Drink Containing Alcohol: Never - Travel History Recent Travel in the [place] Within the Last 8 Weeks: No Recent Travel Out of the Country Within the Last 8 Weeks: No - Immunization History Tetanus Immunization: <5 Years Hx Influenza Vaccine This Season: Yes Medications and Allergies Active Medications: Active Medications Sodium Chloride (Ns Flush) 2 ml IV.FLUSH UNSCH PRN PRN Reason: FLUSH AFTER USING IV ACCESS Allergies Allergy/AdvReac Type Severity Reaction Status Date / Time aspirin Allergy Severe Hives Verified 05/30/17 07:32 oxaprozin Allergy Severe BRUISES Verified 05/30/17 07:32 Home Medications Medication Instructions Recorded Confirmed Type hydroxyzine HCl 10/10/17 History omeprazole magnesium [Prilosec OTC] 20 mg PO DAILY 10/10/17 10/10/17 History Exam Vital signs: Vital Signs 10/10/17 05:33 10/10/17 05:37 10/10/17 06:14 Temperature 98.5 F Pulse Rate 84 85 Respiratory Rate 20 16 Blood Pressure 138/62 137/65 Pulse Oximetry 98 97 96 10/10/17 08:27 10/10/17 10:17 10/10/17 11:00 Temperature 99.7 F H Pulse Rate 92 H 92 H Respiratory Rate 14 18 Blood Pressure 127/69 145/70 H Pulse Oximetry 96 98 Intake & Output 10/09/17 10/10/17 10/10/17 18:59 06:59 18:59 Weight 90.718 kg - Constitutional no acute distress - Routine HEENT Exam Head: Present: normocephalic, atraumatic Eye: Present: conjunctival icterus - Routine Cardiovascular Exam Present: RRR - Routine Abdominal Exam Present: soft, normoactive bowel sounds. Absent: tenderness, distended, rebound , guarding - Routine Skin Exam Present: dry, warm, jaundice - Routine Neurological Exam Present: alert, oriented X3 Results - Labs CBC & Chem 7: 10/10/17 06:13 10/10/17 06:13 Labs: Laboratory Results - last 24 hr 10/10/17 10/10/17 10/10/17 06:13 06:13 06:13 WBC 11.9 H RBC 2.73 L Hgb 9.7 L Hct 29.9 L MCV 109.8 H MCH 35.6 H MCHC 32.4 RDW 28.1 H Plt Count 140 L MPV 9.6 Prelim Diff (Auto) Slide review pending Neut % (Auto) 85.7 H Lymph % (Auto) 8.9 L [place] % (Auto) 4.1 Eos % (Auto) 0.2 Baso % (Auto) 1.1 Neut # (Auto) 10.2 H Lymph # (Auto) 1.0 [place] # (Auto) 0.5 Eos # (Auto) 0.0 Baso # (Auto) 0.1 WBC Differential Manual diff final Seg Neuts % (Manual) 62 Band Neuts % (Manual) 27 H Lymphocytes % (Manual) 6 L Monocytes % (Manual) 5 Abs Neuts (Manual) 10.6 H Nucleated RBCs/100 WBC 2 H Differential Comment . Platelet Estimate Low L Platelet Morphology Normal Tear Drop Cells 1+ H Ovalocytes 1+ H Acanthocytes (Spur) Occ H Keratocytes Occ H PT 10.5 INR 1.0 APTT 25.5 Sodium 141 Potassium 4.3 Chloride 106 Carbon Dioxide 25.7 Anion Gap 9 BUN 12 Creatinine 1.07 Estimated GFR 66 L Random Glucose 198 H Lactic Acid Calcium 8.3 L Magnesium 1.8 Total Bilirubin 4.1 H AST 211 H ALT 143 H Alkaline Phosphatase 167 H Total Creatine Kinase 52 Troponin I Less than 0.02 L Total Protein 7.3 Albumin 3.9 Lipase 153 Urine Color Urine Clarity Urine pH Ur Specific [place] Urine Protein Urine Glucose (UA) Urine Ketones Urine Occult Blood Urine Nitrate Urine Bilirubin Urine Ictotest Urine Urobilinogen Ur Leukocyte Esterase Urine RBC Urine WBC Ur Squamous Epith Cells Urine Mucus 10/10/17 10/10/17 10:30 12:29 WBC RBC Hgb Hct MCV MCH MCHC RDW Plt Count MPV Prelim Diff (Auto) Neut % (Auto) Lymph % (Auto) [place] % (Auto) Eos % (Auto) Baso % (Auto) Neut # (Auto) Lymph # (Auto) [place] # (Auto) Eos # (Auto) Baso # (Auto) WBC Differential Seg Neuts % (Manual) Band Neuts % (Manual) Lymphocytes % (Manual) Monocytes % (Manual) Abs Neuts (Manual) Nucleated RBCs/100 WBC Differential Comment Platelet Estimate Platelet Morphology Tear Drop Cells Ovalocytes Acanthocytes (Spur) Keratocytes PT INR APTT Sodium Potassium Chloride Carbon Dioxide Anion Gap BUN Creatinine Estimated GFR Random Glucose Lactic Acid 3.0 H Calcium Magnesium Total Bilirubin AST ALT Alkaline Phosphatase Total Creatine Kinase Troponin I Total Protein Albumin Lipase Urine Color [place]a Urine Clarity Clear Urine pH 7.0 Ur Specific [place] 1.031 Urine Protein Negative Urine Glucose (UA) 50 Urine Ketones Negative Urine Occult Blood Negative Urine Nitrate Negative Urine Bilirubin Small H Urine Ictotest Positive H Urine Urobilinogen 4 or greater Ur Leukocyte Esterase Negative Urine RBC Less than 1 Urine WBC 1 Ur Squamous Epith Cells <1 Urine Mucus Few H - Imaging Impressions Chest X-Ray 10/10/17 06:10 CONCLUSION: Stable appearance of the lungs with mild left basilar atelectasis. Abdomen/Pelvis CT 10/10/17 08:13 CONCLUSION: 1. No acute CT abnormality in the abdomen or pelvis. 2. Status post cholecystectomy with prominent common bile duct typically due to postcholecystectomy reservoir effect. However, patient's common bile duct was similarly dilated prior to cholecystectomy on prior CT exam. Etiology is therefore unclear. 3. Normal appendix. 4. Colonic diverticulosis without definitive evidence for diverticulitis. 5. 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 6. Additional ancillary findings, as above. Assessment and Plan - Plan Assessment: - Elevated LFTs- suspected cholangitis AST-211 ALT-143 T bili-4.1 Alk phos-167 Leukocytosis and elevated lactic acid. Pt presents with chest pain that began last night after eating a snack. Was unable to sleep due to pain. Associated fever and chills. Denies nausea, vomiting, abdominal pain. History of choledocholithiasis S/P ERCP with stone extraction and stent placement in Feb, later that day was hospitalized for cholangitis S/P stent exchange. Most recent ERCP in May of this year --> Normal appearing ampulla. A previously placed ampulla stent was seen extending from the orifice. Previous stent snared and removed. Ampulla dilated with 8mm Max pas balloon to 10 BIBI for 30 seconds. Some bleeding at the ampulla, ceased spontaneously. CBD washed generously with NS. No filling defects. Pt denies ETOH, new prescription medication, OTC herbs and supplements. Denies tattoos, history of IV drug use. Has had same sexual partner for over 40 years. Denies personal history and family history of liver issues. CT abdomen and pelvis W IV contrast --> No acute CT abnormality in the abdomen or pelvis. Status post cholecystectomy with prominent common bile duct typically due to postcholecystectomy reservoir effect. However, patient's common bile duct was similarly dilated prior to cholecystectomy on prior CT exam. Etiology is therefore unclear. Normal appendix. Colonic diverticulosis without definitive evidence for diverticulitis. 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 Additional ancillary findings , as above. Pt unable to have MRCP due to pacemaker Plan: Zosyn Monitor LFTs ? ERCP timing Fever and pain control Further recommendations based on clinical course and results of above Pt has been seen and examined by myself and Dr. Schwarz and this note is written on her behalf
[2017-10-10] MEDS ORDERED: Bisacodyl 10 MG Supp RECTAL PRN (14:38)
[2017-10-10] MEDS ORDERED: Piperacil/Tazo 4.5 GM Premix 4.5 GM/100 ML BAG IV.SIG SCH (14:45)
[2017-10-10] MEDS ORDERED: hydrALAZINE 10 MG Tablet PO PRN (14:55)
--- NOTE | 2017-10-10 15:14 | P.HPIM ---
History of Present Illness Primary Care Physician: Bimal Cottrell History of Present Illness: This is a very pleasant 87 yo M with PMH significant for macular degeneration, BPH, and GERD who presented to the ER this morning with complaints of chest pain , fever, and chills. Pt reports chest pain began last night after eating a snack and going to bed, did not sleep all night. States pain has resolved since coming to the emergency department. Denies associated nausea and vomiting. Denies acid reflux, abdominal pain, and changes in bowel habits. In ER pt was found to have elevated LFTs. He denies personal history and family history of liver issues. Of note, pt had history of choledocholithiasis in February 2017 underwent outpatient ERCP with stone removal and stent placement. Admitted to the hospital later that day with fever and suspected cholangitis, stent was replaced Feb 26. Pt had most recent ERCP on May 28 of this year and had Normal appearing ampulla. A previously placed ampulla stent was seen extending from the orifice. Previous stent snared and removed. Ampulla dilated with 8mm Max pas balloon to 10 BIBI for 30 seconds. Some bleeding at the ampulla, ceased spontaneously. CBD washed generously with NS. No filling defects. Pt denies ETOH, new prescription medication, OTC herbs and supplements. Denies tattoos, history of IV drug use. Has had same sexual partner for over 40 years. Family history. Says family is healthy , no HTN, DM, strokes or h/o cancer that runs in family Inpatient Certification: I certify that the inpatient services were ordered in accordance with Medicare regulations governing the order. This includes certification that hospital inpatient services are reasonable and necessary and in the case of services not specified as inpatient-only under 42 CFR 419.22(n), that they are appropriately provided as inpatient services in accordance to with the 2-midnight benchmark under 43 CFR 412.3(e) Estimated Total Length of Stay (Days): 3 Plans for Post Hospital Care: Not yet determined Review of Systems ROS reviewed and negative except as mentioned in HPI PMFSH - History History Provided By: Patient - Medical History Medical History: Medical History (Last Reviewed 10/10/17 @ 18:29 by Ana Jackson MD) GERD (gastroesophageal reflux disease) Hip fracture, right Pacemaker - Surgical History Surgical History: Surgical History (Last Reviewed 10/10/17 @ 18:29 by Ana Jackson MD) H/O hernia repair History of knee replacement Hx of cholecystectomy - Tobacco History Second Hand Smoke Exposure: No Smoking Status: Never smoker - Alcohol History How Often Do You Have a Drink Containing Alcohol: Never - Travel History Recent Travel in the [place] Within the Last 8 Weeks: No Recent Travel Out of the Country Within the Last 8 Weeks: No - Immunization History Tetanus Immunization: <5 Years Hx Influenza Vaccine This Season: Yes Medications and Allergies Active Medications: Active Medications Al Hydroxide/Mg Hydroxide (Milk Of Magnesia Liq) 30 ml PO Q12H PRN PRN Reason: Mild Constipation Bisacodyl (Dulcolax Supp) 10 mg RECTAL DAILY PRN PRN Reason: SEVERE CONSITIPATION Enoxaparin Sodium (Lovenox Inj) 40 mg SQ Q24H KIRK Hydralazine HCl (Apresoline) 10 mg PO QID PRN PRN Reason: BP> 160/90 Piperacillin/Tazobactam/Dextrose (Zosyn 3.375 Gm Premix) 50 mls @ 100 mls/hr IV.SIG Q8H KIRK Sodium Chloride (Ns Inj) 1,000 mls @ 100 mls/hr IV.CONT .Q10H KRIK Piperacillin/Tazobactam/Dextrose (Zosyn 4.5 Gm Premix) 4.5 gm in 100 mls @ 200 mls/hr IV.SIG Q6H KIRK Lactulose (Lactulose Liq) 30 ml PO DAILY PRN PRN Reason: SEVERE CONSITIPATION Metoclopramide HCl (Reglan Inj) 5 mg IV.PUSH Q6HR PRN; Protocol PRN Reason: NAUSEA OR VOMITING Non-Formulary Medication (Omeprazole Magnesium [Prilosec Otc]) 20 mg PO DAILY KIRK Senna/Docusate Sodium (Lynda-Colace) 1 tab PO BID KIRK Sennosides (Senokot) 17.2 mg PO Q12H PRN PRN Reason: Moderate Constipation Sodium Chloride (Ns Flush) 2 ml IV.FLUSH UNSCH PRN PRN Reason: FLUSH AFTER USING IV ACCESS Allergies Allergy/AdvReac Type Severity Reaction Status Date / Time aspirin Allergy Severe Hives Verified 05/30/17 07:32 oxaprozin Allergy Severe BRUISES Verified 05/30/17 07:32 Home Medications Medication Instructions Recorded Confirmed Type hydroxyzine HCl 10/10/17 History omeprazole magnesium [Prilosec OTC] 20 mg PO DAILY 10/10/17 10/10/17 History Exam Vital signs: Vital Signs 10/10/17 05:33 10/10/17 05:37 10/10/17 06:14 Temperature 98.5 F Pulse Rate 84 85 Respiratory Rate 20 16 Blood Pressure 138/62 137/65 Pulse Oximetry 98 97 96 10/10/17 08:27 10/10/17 10:17 10/10/17 11:00 Temperature 99.7 F H Pulse Rate 92 H 92 H Respiratory Rate 14 18 Blood Pressure 127/69 145/70 H Pulse Oximetry 96 98 Intake & Output 10/09/17 10/10/17 10/10/17 18:59 06:59 18:59 Intake Total 550 / 550 Balance 550 / 550 Weight 90.718 kg Intake: IV 550 / 550 Zosyn 3.375 GM Premix 50 ML @ 50 / 50 100 mls/hr IV.SIG ONCE ONE Rx#: [id number] NS Inj 500 ML @ Wide Open IV. 500 / 500 SIG BOLUS ONE Rx#:[id number] Narrative: GENERAL: Pleasant elderly male, appears sick. SKIN: Warm and dry. HEAD: Atraumatic. Normocephalic. EYES: Pupils equal and round. No scleral icterus. No injection or drainage. ENT: No nasal bleeding or discharge. Mucous membranes pink and moist. NECK: Trachea midline. No JVD. CARDIOVASCULAR: Regular rate and rhythm. RESPIRATORY: No accessory muscle use. Clear to auscultation. Breath sounds equal bilaterally. GASTROINTESTINAL: Abdomen soft, epigastric tenderness, nondistended. MUSCULOSKELETAL: Extremities without clubbing, cyanosis, or edema. No obvious deformities. NEUROLOGICAL: Awake and alert. No obvious cranial nerve deficits. Motor grossly within normal limits. Five out of 5 muscle strength in the arms and legs. Normal speech. PSYCHIATRIC: Appropriate mood and affect; insight and judgment normal. Results - Labs CBC & Chem 7: 10/10/17 06:13 10/10/17 06:13 Labs: Short CBC 10/10/17 Range/Units 06:13 WBC 11.9 H (4.0-11.0) th/mm3 Hgb 9.7 L (13.0-17.0) gm/dL Hct 29.9 L (39.0-51.0) % Plt Count 140 L (150-450) th/mm3 BMP 10/10/17 06:13 Sodium 141 Potassium 4.3 Chloride 106 Carbon Dioxide 25.7 BUN 12 Creatinine 1.07 Calcium 8.3 L Cardiac Enzymes 10/10/17 Range/Units 06:13 Total Creatine Kinase 52 (39-308) U/L Troponin I Less than 0.02 L (0.02-0.05) ng/mL Liver Function 10/10/17 Range/Units 06:13 Total Bilirubin 4.1 H (0.2-1.0) mg/dL AST 211 H (15-37) U/L ALT 143 H (12-78) U/L Alkaline Phosphatase 167 H (45-117) U/L Albumin 3.9 (3.4-5.0) g/dL Urine 10/10/17 Range/Units 12:29 Urine Color Saira (Yellw/Straw) Urine Clarity Clear (Clear) Urine pH 7.0 (5.0-8.5) Ur Specific [place] 1.031 (1.002-1.035) Urine Protein Negative (Neg-Trace) mg/dL Urine Glucose (UA) 50 (Negative) mg/dL - Imaging Impressions Chest X-Ray 10/10/17 06:10 CONCLUSION: Stable appearance of the lungs with mild left basilar atelectasis. Abdomen/Pelvis CT 10/10/17 08:13 CONCLUSION: 1. No acute CT abnormality in the abdomen or pelvis. 2. Status post cholecystectomy with prominent common bile duct typically due to postcholecystectomy reservoir effect. However, patient's common bile duct was similarly dilated prior to cholecystectomy on prior CT exam. Etiology is therefore unclear. 3. Normal appendix. 4. Colonic diverticulosis without definitive evidence for diverticulitis. 5. 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 6. Additional ancillary findings, as above. Caprini VTE Risk Assessment Caprini VTE Risk Assessment: Moderate/High Risk (score >= 2) Caprini Risk Assessment Model: Point Value = 1 Point Value = 2 Point Value = 3 Point Value = 5 Age 41-60 Minor surgery BMI > 25 kg/m2 Swollen legs Varicose veins or History of unexplained or recurrent spontaneous Oral contraceptives or hormone replacement Sepsis (< 1 month) Serious lung disease, including pneumonia (< 1 month) Abnormal pulmonary function Acute myocardial infarction Congestive heart failure (< 1 month) History of inflammatory bowel disease Medical patient at bed rest Age 61-74 Arthroscopic surgery Major open surgery (> 45 min) Laparoscopic surgery (> 45 min) Malignancy Confined to bed (> 72 hours) Immobilizing plaster cast Central venous access Age >= 75 History of VTE Family history of VTE Factor V Leiden Prothrombin [id number] Lupus anticoagulant Anticardiolipin antibodies Elevated serum homocysteine Heparin-induced thrombocytopenia Other congenital or acquired thrombophilia Stroke (< 1 month) Elective arthroplasty Hip, pelvis, or leg fracture Acute spinal cord injury (< 1 month) Prophylaxis Regimen: Total Risk Factor Score Risk Level Prophylaxis Regimen 0-1 Low Early ambulation 2 Moderate Order ONE of the following: *Sequential Compression Device (SCD) *Heparin 5000 units SQ BID 3-4 Higher Order ONE of the following medications: *Heparin 5000 units SQ TID *Enoxaparin/Lovenox 40 mg SQ daily (WT < 150 kg, CrCl > 30 mL/min) *Enoxaparin/Lovenox 30 mg SQ daily (WT < 150 kg, CrCl > 10-29 mL/min) *Enoxaparin/Lovenox 30 mg SQ BID (WT < 150 kg, CrCl > 30 mL/min) AND/OR *Sequential Compression Device (SCD) 5 or more Highest Order ONE of the following medications: *Heparin 5000 units SQ TID (Preferred with Epidurals) *Enoxaparin/Lovenox 40 mg SQ daily (WT < 150 kg, CrCl > 30 mL/min) *Enoxaparin/Lovenox 30 mg SQ daily (WT < 150 kg, CrCl > 10-29 mL/min) *Enoxaparin/Lovenox 30 mg SQ BID (WT < 150 kg, CrCl > 30 mL/min) AND *Sequential Compression Device (SCD) Assessment and Plan - Plan Sepsis ( fever ;leukocytosis, source GI) Blood cx pending Start zosyn IV Consilt GI Elevated LFTs- suspected cholangitis AST-211 ALT-143 T bili-4.1 Alk phos-167 Leukocytosis and elevated lactic acid. Pt presents with chest pain that began last night after eating a snack. Was unable to sleep due to pain. Associated fever and chills. Denies nausea, vomiting, abdominal pain. History of choledocholithiasis S/P ERCP with stone extraction and stent placement in Feb, later that day was hospitalized for cholangitis S/P stent exchange. Most recent ERCP in May of this year --> Normal appearing ampulla. A previously placed ampulla stent was seen extending from the orifice. Previous stent snared and removed. Ampulla dilated with 8mm Max pas balloon to 10 BIBI for 30 seconds. Some bleeding at the ampulla, ceased spontaneously. CBD washed generously with NS. No filling defects. Pt denies ETOH, new prescription medication, OTC herbs and supplements. Denies tattoos, history of IV drug use. Has had same sexual partner for over 40 years. Denies personal history and family history of liver issues. CT abdomen and pelvis W IV contrast --> No acute CT abnormality in the abdomen or pelvis. Status post cholecystectomy with prominent common bile duct typically due to postcholecystectomy reservoir effect. However, patient's common bile duct was similarly dilated prior to cholecystectomy on prior CT exam. Etiology is therefore unclear. Normal appendix. Colonic diverticulosis without definitive evidence for diverticulitis. 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 Additional ancillary findings , as above. Note that Pt unable to have MRCP due to pacemaker Plan for ERCP tomorrow Patient can have clear liquid diet now. Keep n.p.o. after midnight. Plan for ERCP tomorrow by GI Discussed Condition With: pt, nurse, ED physician
[2017-10-10] MEDS: Enoxaparin Inj 40 MG/0.4 ML Syringe SQ SCH (15:39)
[2017-10-10] MEDS: Sod Chloride 0.9% Inj 1,000 ML IV.CONT SCH (15:40)
--- NOTE | 2017-10-10 18:34 | ECG ---
Date Performed: 10/10/2017 Time Performed: 06:01:42 PTAGE: 87 years EKG: UNCERTAIN REGULAR RHYTHM RIGHT BUNDLE BRANCH BLOCK ABNORMAL ECG PREVIOUS TRACING : 10/10/2017 06.00 This tracing is difficult tocompare to the prior tracing as there really is too much artifact to make a detailed interpretation. when allowing for the artifact and the uncertain rythm, there has probably been no gross serial change DOCTOR: Juju Stoll Interpretating Date/Time 10/10/2017 18:33:30
[2017-10-10] MEDS: Piperacil/Tazo 4.5 GM Premix 4.5 GM/100 ML BAG IV.SIG SCH (21:00)
[2017-10-10] MEDS ORDERED: Piperacil/Tazo 3.375 GM Premix 50 ML IV.SIG SCH (21:00)
[2017-10-10] MEDS: Senna/Docusate Sodium 8.6/50 MG Tablet PO SCH (23:10)
[2017-10-10] MEDS ORDERED: Chlorhexidine Gluconate 2% 1 Pack (2 Cloths) TOPICAL SCH ×2 (23:45)
[2017-10-10] MEDS ORDERED: Sodium Chlor 0.9% Inj 500 ML IV.SIG SCH ×2 (23:45)
[2017-10-11] MEDS: Piperacil/Tazo 4.5 GM Premix 4.5 GM/100 ML BAG IV.SIG SCH ×4 (03:40→22:24)
[2017-10-11] MEDS: Sod Chloride 0.9% Inj 1,000 ML IV.CONT SCH ×3 (03:41→22:27)
[2017-10-11 07:48] LABS: Baso # (Auto) 0.1 th/mm3 (0.0-0.2); Baso % (Auto) 2.2 % (0.0-2.0); Eos # (Auto) 0.1 th/mm3 (0.0-0.4); Eos % (Auto) 1.2 % (0.0-4.0); Hematocrit 27.1 % (39.0-51.0); Hemoglobin 8.9 gm/dL (13.0-17.0); Lymph # (Auto) 1.5 th/mm3 (1.0-4.8); Lymph % (Auto) 24.8 % (9.0-44.0); Mean Corpuscular Hemoglobin 36.4 pg (27.0-34.0); Mean Corpuscular Volume 110.4 fL (80.0-100.0); Mean Platelet Volume 9.6 fL (7.0-11.0); Mono # (Auto) 0.5 th/mm3 (0.0-0.9); Mono % (Auto) 7.8 % (0.0-8.0); Neut # (Auto) 3.9 th/mm3 (1.8-7.7); Platelet Count 113 th/mm3 (150-450); Red Blood Count 2.46 mil/mm3 (4.50-5.90); Red Cell Distribution Width 28.9 % (11.6-17.2); White Blood Count 6.1 th/mm3 (4.0-11.0)
[2017-10-11 08:17] LABS: Alanine Aminotransferase 229 U/L (12-78); Albumin 3.1 g/dL (3.4-5.0); Anion Gap 8 meq/L (5-15); Aspartate Aminotransferase 161 U/L (15-37); Blood Urea Nitrogen 13 mg/dL (7-18); Calcium 8.4 mg/dL (8.5-10.1); Carbon Dioxide 25.2 meq/L (21.0-32.0); Chloride 110 meq/L (98-107); Glomerular Filtration Rate 59 mL/min (>89); Glucose,Random 122 mg/dL (74-106); Potassium 4.2 meq/L (3.5-5.1); Sodium 143 meq/L (136-145)
[2017-10-11 08:20] LABS: Alkaline Phosphatase 149 U/L (45-117); Total Protein 6.3 g/dL (6.4-8.2)
[2017-10-11 09:14] LABS: Eosinophils 1 % (0-4); Lymphocytes 18 % (9-44); Monocytes 7 % (0-8)
[2017-10-11 09:15] LABS: Platelet Morphology Normal (Normal); Target Cells 1+; Tear Drop Cells 1+
--- NOTE | 2017-10-11 09:24 | GIPROC ---
[facility] [address] [facility]. [facility] [place], [address] ERCP PROCEDURE REPORT EXAM DATE: 10/11/2017 PATIENT NAME: Bulmaro Guillen MR #: [id number] BIRTHDATE: 1930 ATTENDING: Kezia Nelson MD ORDER #: [id number] DISTRICT AGENT: Irene Humphreys Stienbarger, Terrie, and Roge Villaseñor STATUS: inpatient INDICATIONS: The patient is a 87 yr old male here for an ERCP due to abdominal pain of suspected biliary origin, abnormal liver function test , and suspected or rule out bile duct stones PROCEDURE PERFORMED: ERCP with removal of calculus/calculi ERCP with stent placement MEDICATIONS: None and Per Anesthesia. CONSENT: The patient understands the risks and benefits of the procedure and understands that these risks include, but are not limited to: sedation, allergic reaction, infection, perforation and/or bleeding. Alternative means of evaluation and treatment include, among others: physical exam, x-rays, and/or surgical intervention. The patient elects to proceed with this endoscopic procedure. medical equipment was checked for proper function. Hand hygiene and appropriate measures for infection prevention was taken. After the risks, benefits and alternatives of the procedure were thoroughly explained, Informed was verified, confirmed and timeout was successfully executed by the treatment team. With the patient in left semi-prone position, medications were administered intravenously.The Pentax [id number] was passed from the mouth into the esophagus and further advanced from the esophagus into the stomach. From stomach scope was directed to the second portion of the duodenum. Major papilla was aligned with the duodenoscope. The scope position was confirmed fluoroscopically. Rest of the findings/therapeutics are given below. The scope was then completely withdrawn from the patient and the procedure completed. The pulse, BP, and O2 saturation were monitored and documented by the physician and the nursing staff throughout the entire procedure. The patient was cared for as planned according to standard protocol. The patient was then discharged to recovery in stable condition and with appropriate post procedure care. The ampulla was located the second portion of the duodenum. Dilated CBD, biliarysludge. Balloon sweep with 15mm balloon. Sludge extracted. 10 Fr x 9cm stent placed. ADVERSE EVENT: There were no complications. IMPRESSIONS: 1. Plastic stent placement 2. Common bile duct stone(s) RECOMMENDATIONS: 1. Antibiotics 2. Liver enzymes REPEAT EXAM: Return 3 months ERCP Kezia Nelson MD eSigned: Kezia Nelson MD 10/11/2017 9:24 AM cc:
--- NOTE | 2017-10-11 09:36 | FL ---
EXAM DATE: 10/11/2017 9:32 AM EDT AGE/SEX: 87 years / Male INDICATIONS: Obstruction, stone removal and stent placement. CLINICAL DATA: This is the patient's initial encounter. Patient reports that signs and symptoms have been present for 1 day and indicates a pain score of Nonresponsive. MEDICAL/SURGICAL HISTORY: . Cardiovascular disease. Gastroesophageal reflux disease. Benign pro static hyperplasia. Hiatal hernia. . Pacemaker. COMPARISON: No prior exams available for comparison. FINDINGS: An ERCP was performed by the ordering physician. The images demonstrate contrast in the dilated comm on bile duct. On the final film there is an internal biliary stent in place which appears to be in go od position. CONCLUSION: Status post placement of an internal biliary stent which appears to be in good position. Electronically signed by: Gurmeet Lopez MD 10/11/2017 9:35 AM EDT
[2017-10-11] MEDS ORDERED: Lidocaine PF 1% Inj 5 ML Syringe INFILTRATN ONE (12:00)
--- NOTE | 2017-10-11 12:23 | P.PN ---
Physical Exam Vital signs: Vital Signs 10/10/17 17:07 10/10/17 20:30 10/11/17 00:00 Temperature 98.4 F 98.5 F Pulse Rate 87 75 Respiratory Rate 18 19 Blood Pressure 119/78 109/54 L Pulse Oximetry 93 L 93 L 10/11/17 08:00 10/11/17 09:32 Temperature 97.8 F 97.1 F L Pulse Rate 67 67 Respiratory Rate 18 Blood Pressure 113/59 L 138/63 Pulse Oximetry 93 L 96 Intake & Output 10/10/17 10/11/17 10/11/17 18:59 06:59 18:59 Intake Total 610 / 610 1800 / 1800 Output Total 200 / 200 350 / 350 Balance 610 / 610 1600 / 1600 -350 / -350 Weight 90.71 kg Intake: IV 550 / 550 1200 / 1200 NS Inj 1,000 ML @ 100 mls/hr IV 1000 / 1000 .CONT .Q10H KIRK Rx#:[id number] Zosyn 3.375 GM Premix 50 ML @ 50 / 50 100 mls/hr IV.SIG ONCE ONE Rx#: [id number] Zosyn 4.5 GM Premix 4.5 gm In 200 / 200 100 ml @ 200 mls/hr IV.SIG Q6H KIRK Rx#:[id number] NS Inj 500 ML @ Wide Open IV. 500 / 500 SIG BOLUS ONE Rx#:[id number] Oral 60 / 60 600 / 600 Output: Urine 200 / 200 350 / 350 Other: # Voids 2 Date of Last Bowel Movement 10/09/17 10/10/17 Narrative: Subjective: Appears in nad No n/v/d/c. No pain at this time/ No fever or chills. Eating lunch after procedure GENERAL: Pleasant 87 yo male, at the margin of the bed doesn't appear in acute distress. CARDIOVASCULAR: Regular rate and rhythm. RESPIRATORY: No accessory muscle use. Clear to auscultation. Breath sounds equal bilaterally. GASTROINTESTINAL: Abdomen soft, epigastric diffuse tenderness, nondistended. MUSCULOSKELETAL: Extremities without clubbing, cyanosis, or edema. No obvious deformities. NEUROLOGICAL: Awake and alert. No obvious cranial nerve deficits. Motor grossly within normal limits. Five out of 5 muscle strength in the arms and legs. Normal speech. Assessment and Plan Sepsis ( fever ;leukocytosis, source GI) Blood cx pending Continue zosyn IV Consult GI appreciate recommendations Elevated LFTs- suspected cholangitis AST-211 ALT-143 T bili-4.1 Alk phos-167 Leukocytosis and elevated lactic acid. Pt presents with chest pain that began last night after eating a snack. Was unable to sleep due to pain. Associated fever and chills. Denies nausea, vomiting, abdominal pain. History of choledocholithiasis S/P ERCP with stone extraction and stent placement in Feb, later that day was hospitalized for cholangitis S/P stent exchange. Most recent ERCP in May of this year --> Normal appearing ampulla. A previously placed ampulla stent was seen extending from the orifice. Previous stent snared and removed. Ampulla dilated with 8mm Max pas balloon to 10 BIBI for 30 seconds. Some bleeding at the ampulla, ceased spontaneously. CBD washed generously with NS. No filling defects. Pt denies ETOH, new prescription medication, OTC herbs and supplements. Denies tattoos, history of IV drug use. Has had same sexual partner for over 40 years. Denies personal history and family history of liver issues. CT abdomen and pelvis W IV contrast reviewed and findings discussed with GI : No acute CT abnormality in the abdomen or pelvis. Status post cholecystectomy with prominent common bile duct typically due to postcholecystectomy reservoir effect. However, patient's common bile duct was similarly dilated prior to cholecystectomy on prior CT exam. Etiology is therefore unclear. Normal appendix. Colonic diverticulosis without definitive evidence for diverticulitis. 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 Additional ancillary findings , as above. Note that Pt unable to have MRCP due to pacemaker GI ff: Status post placement of an internal biliary stent which appears to be in good position, imaging reviewed Advance diet per GI recommendations Discussed Condition With: pt, nurse, at bedside - Urinary Catheter Management t Cath placed during this visit: yes Reason for continuing: Not indwelling catheter Insertion date: 10/10/17 Results - Labs CBC & Chem 7: 10/11/17 07:06 10/11/17 12:41 Laboratory Results - last 24 hr 10/10/17 10/11/17 10/11/17 12:29 07:06 07:06 WBC 6.1 RBC 2.46 L Hgb 8.9 L Hct 27.1 L MCV 110.4 H MCH 36.4 H MCHC 33.0 RDW 28.9 H Plt Count 113 L MPV 9.6 Prelim Diff (Auto) Slide review pending Neut % (Auto) 64.0 Lymph % (Auto) 24.8 [place] % (Auto) 7.8 Eos % (Auto) 1.2 Baso % (Auto) 2.2 H Neut # (Auto) 3.9 Lymph # (Auto) 1.5 [place] # (Auto) 0.5 Eos # (Auto) 0.1 Baso # (Auto) 0.1 WBC Differential Manual diff final Seg Neuts % (Manual) 51 Band Neuts % (Manual) 23 H Lymphocytes % (Manual) 18 Monocytes % (Manual) 7 Eosinophils % (Manual) 1 Abs Neuts (Manual) 4.5 Differential Comment . Platelet Estimate Low L Platelet Morphology Normal Target Cells 1+ H Tear Drop Cells 1+ H Keratocytes Occ H Sodium 143 Potassium 4.2 Chloride 110 H Carbon Dioxide 25.2 Anion Gap 8 BUN 13 Creatinine 1.17 Estimated GFR 59 L Random Glucose 122 H Calcium 8.4 L Total Bilirubin 9.2 H AST 161 H ALT 229 H Alkaline Phosphatase 149 H Total Protein 6.3 L D Albumin 3.1 L D Urine Color Saira Urine Clarity Clear Urine pH 7.0 Ur Specific [place] 1.031 Urine Protein Negative Urine Glucose (UA) 50 Urine Ketones Negative Urine Occult Blood Negative Urine Nitrate Negative Urine Bilirubin Small H Urine Ictotest Positive H Urine Urobilinogen 4 or greater Ur Leukocyte Esterase Negative Urine RBC Less than 1 Urine WBC 1 Ur Squamous Epith Cells <1 Urine Mucus Few H Microbiology 10/10/17 10:30 Blood - Peripheral Aerobic Blood Culture - Preliminary No growth in 1 day 10/10/17 10:30 Blood - Peripheral Anaerobic Blood Culture - Preliminary No growth in 1 day 10/10/17 10:25 Blood - Peripheral Aerobic Blood Culture - Preliminary No growth in 1 day 10/10/17 10:25 Blood - Peripheral Anaerobic Blood Culture - Preliminary No growth in 1 day - Imaging Impressions GI Procedure 10/11/17 00:00 CONCLUSION: Status post placement of an internal biliary stent which appears to be in good position. - Procedures Status post placement of an internal biliary stent which appears to be in good position.
[2017-10-11 14:28] LABS: Alanine Aminotransferase 225 U/L (12-78); Albumin 3.5 g/dL (3.4-5.0); Anion Gap 11 meq/L (5-15); Aspartate Aminotransferase 149 U/L (15-37); Blood Urea Nitrogen 12 mg/dL (7-18); Calcium 8.2 mg/dL (8.5-10.1); Carbon Dioxide 23.5 meq/L (21.0-32.0); Chloride 109 meq/L (98-107); Glomerular Filtration Rate 59 mL/min (>89); Glucose,Random 99 mg/dL (74-106); Potassium 3.7 meq/L (3.5-5.1); Sodium 143 meq/L (136-145)
[2017-10-11] MEDS: Senna/Docusate Sodium 8.6/50 MG Tablet PO SCH ×2 (14:28→22:26)
[2017-10-11] MEDS: Pantoprazole Sodium 20 MG DR Tablet PO SCH (14:29)
[2017-10-11 14:30] LABS: Alkaline Phosphatase 157 U/L (45-117); Total Protein 6.7 g/dL (6.4-8.2)
[2017-10-11] MEDS: Enoxaparin Inj 40 MG/0.4 ML Syringe SQ SCH (18:38)
[2017-10-12] MEDS: Piperacil/Tazo 4.5 GM Premix 4.5 GM/100 ML BAG IV.SIG SCH ×4 (02:33→21:35)
[2017-10-12 06:52] LABS: Baso # (Auto) 0.1 th/mm3 (0.0-0.2); Baso % (Auto) 1.1 % (0.0-2.0); Eos # (Auto) 0.3 th/mm3 (0.0-0.4); Eos % (Auto) 4.4 % (0.0-4.0); Hematocrit 26.3 % (39.0-51.0); Hemoglobin 8.7 gm/dL (13.0-17.0); Lymph # (Auto) 2.3 th/mm3 (1.0-4.8); Lymph % (Auto) 30.3 % (9.0-44.0); Mean Corpuscular Hemoglobin 36.6 pg (27.0-34.0); Mean Corpuscular Volume 110.9 fL (80.0-100.0); Mean Platelet Volume 9.6 fL (7.0-11.0); Mono # (Auto) 0.5 th/mm3 (0.0-0.9); Mono % (Auto) 7.2 % (0.0-8.0); Neut # (Auto) 4.3 th/mm3 (1.8-7.7); Platelet Count 103 th/mm3 (150-450); Red Blood Count 2.37 mil/mm3 (4.50-5.90); Red Cell Distribution Width 28.8 % (11.6-17.2); White Blood Count 7.5 th/mm3 (4.0-11.0)
[2017-10-12] MEDS: Senna/Docusate Sodium 8.6/50 MG Tablet PO SCH ×2 (08:05→21:35)
[2017-10-12] MEDS: Pantoprazole Sodium 20 MG DR Tablet PO SCH (08:05)
[2017-10-12 08:48] LABS: Eosinophils 5 % (0-4); Lymphocytes 39 % (9-44); Monocytes 6 % (0-8); Tallied Nucleated RBC 2 (0-0)
[2017-10-12 08:49] LABS: Ovalocytes 1+; Platelet Morphology Normal (Normal)
[2017-10-12] MEDS: Enoxaparin Inj 40 MG/0.4 ML Syringe SQ SCH (14:18)
--- NOTE | 2017-10-12 16:27 | P.PN ---
Physical Exam Vital signs: Vital Signs 10/11/17 20:00 10/11/17 22:05 10/12/17 00:00 Temperature 97.3 F L 98.1 F Pulse Rate 71 71 Respiratory Rate 16 17 Blood Pressure 109/56 L 117/58 L Pulse Oximetry 95 96 95 10/12/17 08:00 10/12/17 12:00 Temperature 97.8 F 97.1 F L Pulse Rate 62 68 Respiratory Rate 19 17 Blood Pressure 114/56 L 117/62 Pulse Oximetry 95 96 Intake & Output 10/11/17 10/12/17 10/12/17 18:59 06:59 18:59 Intake Total 1100 / 1100 1000 / 1000 100 / 100 Output Total 350 / 350 925 / 925 Balance 750 / 750 75 / 75 100 / 100 Weight 90.71 kg Intake: IV 1100 / 1100 300 / 300 100 / 100 NS Inj 1,000 ML @ 100 mls/hr IV 1000 / 1000 .CONT .Q10H [facility] Rx#:[id number] Zosyn 4.5 GM Premix 4.5 gm In 100 / 100 300 / 300 100 / 100 100 ml @ 200 mls/hr IV.SIG Q6H [facility] Rx#:[id number] Oral 700 / 700 Output: Urine 350 / 350 925 / 925 Narrative: Subjective: Follow-up sepsis, elevated LFT suspected cholangitis He is in the chair, appears in nad. Able to ambulate. Has no pain in his belly. Able to tolerate food. No n/v/d/c. No fever or chills. GENERAL: Pleasant 87 yo male, in the chair appears in not acute distress. CARDIOVASCULAR: Regular rate and rhythm. No murmurs. RESPIRATORY: No accessory muscle use. Clear to auscultation. Breath sounds equal bilaterally. GASTROINTESTINAL: Abdomen soft, no tenderness, nondistended. MUSCULOSKELETAL: Extremities without clubbing, cyanosis, or edema. No obvious deformities. NEUROLOGICAL: Awake and alert. No obvious cranial nerve deficits. Motor grossly within normal limits. Five out of 5 muscle strength in the arms and legs. Normal speech. Assessment and Plan Sepsis ( fever ;leukocytosis, source GI) Blood cx pending Continue zosyn IV Consult GI appreciate recommendations Elevated LFTs- suspected cholangitis AST-211 ALT-143 T bili-4.1 Alk phos-167. Improving. But not at baseline. Leukocytosis and elevated lactic acid. Pt presents with chest pain that began last night after eating a snack. Was unable to sleep due to pain. Associated fever and chills. Denies nausea, vomiting, abdominal pain. History of choledocholithiasis S/P ERCP with stone extraction and stent placement in Feb, later that day was hospitalized for cholangitis S/P stent exchange. Most recent ERCP in May of this year --> Normal appearing ampulla. A previously placed ampulla stent was seen extending from the orifice. Previous stent snared and removed. Ampulla dilated with 8mm Max pas balloon to 10 BIBI for 30 seconds. Some bleeding at the ampulla, ceased spontaneously. CBD washed generously with NS. No filling defects. Pt denies ETOH, new prescription medication, OTC herbs and supplements. Denies tattoos, history of IV drug use. Has had same sexual partner for over 40 years. Denies personal history and family history of liver issues. CT abdomen and pelvis W IV contrast reviewed and findings discussed with GI : No acute CT abnormality in the abdomen or pelvis. Status post cholecystectomy with prominent common bile duct typically due to postcholecystectomy reservoir effect. However, patient's common bile duct was similarly dilated prior to cholecystectomy on prior CT exam. Etiology is therefore unclear. Normal appendix. Colonic diverticulosis without definitive evidence for diverticulitis. 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 Additional ancillary findings , as above. Note that Pt unable to have MRCP due to pacemaker GI ff. Status post placement of an internal biliary stent which appears to be in good position, imaging reviewed Advance diet per GI recommendations. Patient tolerates food. Discussed Condition With: pt, nurse, at bedside Discharge when cleared by GI. - Urinary Catheter Management t Cath placed during this visit: yes Reason for continuing: Not indwelling catheter Insertion date: 10/10/17 Results - Labs CBC & Chem 7: 10/12/17 04:42 10/11/17 12:41 Laboratory Results - last 24 hr 10/12/17 04:42 WBC 7.5 RBC 2.37 L Hgb 8.7 L Hct 26.3 L MCV 110.9 H MCH 36.6 H MCHC 33.0 RDW 28.8 H Plt Count 103 L MPV 9.6 Prelim Diff (Auto) Slide review pending Neut % (Auto) 57.0 Lymph % (Auto) 30.3 [place] % (Auto) 7.2 Eos % (Auto) 4.4 H Baso % (Auto) 1.1 Neut # (Auto) 4.3 Lymph # (Auto) 2.3 [place] # (Auto) 0.5 Eos # (Auto) 0.3 Baso # (Auto) 0.1 WBC Differential Manual diff final Seg Neuts % (Manual) 43 Band Neuts % (Manual) 7 H Lymphocytes % (Manual) 39 Monocytes % (Manual) 6 Eosinophils % (Manual) 5 H Abs Neuts (Manual) 3.8 Nucleated RBCs/100 WBC 2 H Differential Comment . Platelet Estimate Low L Platelet Morphology Normal Ovalocytes 1+ H Keratocytes Occ H Microbiology 10/10/17 10:30 Blood - Peripheral Aerobic Blood Culture - Preliminary No growth in 2 days 10/10/17 10:30 Blood - Peripheral Anaerobic Blood Culture - Preliminary No growth in 2 days 10/10/17 10:25 Blood - Peripheral Aerobic Blood Culture - Preliminary No growth in 2 days 10/10/17 10:25 Blood - Peripheral Anaerobic Blood Culture - Preliminary No growth in 2 days - Procedures Status post placement of an internal biliary stent which appears to be in good position.
--- NOTE | 2017-10-12 18:35 | P.PNGI ---
Subjective Interval history: Feeling better.No nausea, vomiting .Tolerating diet well. S/p ERCP with sphincterotomy and stent placement .LFTS mildly elevated now , possible post ERCP Physical Exam Vital signs: Vital Signs 10/11/17 20:00 10/11/17 22:05 10/12/17 00:00 Temperature 97.3 F L 98.1 F Pulse Rate 71 71 Respiratory Rate 16 17 Blood Pressure 109/56 L 117/58 L Pulse Oximetry 95 96 95 10/12/17 08:00 10/12/17 12:00 10/12/17 16:00 Temperature 97.8 F 97.1 F L 97.5 F L Pulse Rate 62 68 67 Respiratory Rate 19 17 18 Blood Pressure 114/56 L 117/62 115/68 Pulse Oximetry 95 96 97 Intake & Output 10/11/17 10/12/17 10/12/17 18:59 06:59 18:59 Intake Total 1100 / 1100 1000 / 1000 700 / 700 Output Total 350 / 350 925 / 925 Balance 750 / 750 75 / 75 700 / 700 Weight 90.71 kg Intake: IV 1100 / 1100 300 / 300 200 / 200 NS Inj 1,000 ML @ 100 mls/hr IV 1000 / 1000 .CONT .Q10H [facility] Rx#:[id number] Zosyn 4.5 GM Premix 4.5 gm In 100 / 100 300 / 300 200 / 200 100 ml @ 200 mls/hr IV.SIG Q6H [facility] Rx#:[id number] Oral 700 / 700 500 / 500 Output: Urine 350 / 350 925 / 925 Other: # Voids 6 # Bowel Movements 1 - Constitutional no acute distress - Routine HEENT Exam Head: Present: normocephalic Eye: Present: scleral injection - Routine Neck Exam Present: supple - Routine Cardiovascular Exam Present: S1, S2, murmur - Routine Abdominal Exam Present: soft (nontender ) - Routine Skin Exam Present: jaundice - Routine Neurological Exam Present: alert, oriented X3 - Routine Psychiatric Exam Present: normal affect - Urinary Catheter Management t Cath placed during this visit: yes Reason for continuing: Not indwelling catheter Insertion date: 10/10/17 Results - Labs CBC & Chem 7: 10/12/17 04:42 10/11/17 12:41 Laboratory Results - last 24 hr 10/12/17 04:42 WBC 7.5 RBC 2.37 L Hgb 8.7 L Hct 26.3 L MCV 110.9 H MCH 36.6 H MCHC 33.0 RDW 28.8 H Plt Count 103 L MPV 9.6 Prelim Diff (Auto) Slide review pending Neut % (Auto) 57.0 Lymph % (Auto) 30.3 [place] % (Auto) 7.2 Eos % (Auto) 4.4 H Baso % (Auto) 1.1 Neut # (Auto) 4.3 Lymph # (Auto) 2.3 [place] # (Auto) 0.5 Eos # (Auto) 0.3 Baso # (Auto) 0.1 WBC Differential Manual diff final Seg Neuts % (Manual) 43 Band Neuts % (Manual) 7 H Lymphocytes % (Manual) 39 Monocytes % (Manual) 6 Eosinophils % (Manual) 5 H Abs Neuts (Manual) 3.8 Nucleated RBCs/100 WBC 2 H Differential Comment . Platelet Estimate Low L Platelet Morphology Normal Ovalocytes 1+ H Keratocytes Occ H Microbiology 10/10/17 10:30 Blood - Peripheral Aerobic Blood Culture - Preliminary No growth in 2 days 10/10/17 10:30 Blood - Peripheral Anaerobic Blood Culture - Preliminary No growth in 2 days 10/10/17 10:25 Blood - Peripheral Aerobic Blood Culture - Preliminary No growth in 2 days 10/10/17 10:25 Blood - Peripheral Anaerobic Blood Culture - Preliminary No growth in 2 days - Procedures Status post placement of an internal biliary stent which appears to be in good position. Assessment and Plan - Attending Attestation Obstructive jaundice secondary biliary sludge -s/p ERCP with stent placement, s/ p sphincterotomy Mild cholangitis-resolved elevated lfts ,higher today possible post ERCP Recommendations Advance diet continue antibiotics start Acitgall Monitor lfts if improved ok to dc home in am ercp in 8-12 weeks
[2017-10-12 21:03] LABS: Albumin 3.1 g/dL (3.4-5.0); Anion Gap 9 meq/L (5-15); Blood Urea Nitrogen 11 mg/dL (7-18); Calcium 8.5 mg/dL (8.5-10.1); Carbon Dioxide 22.1 meq/L (21.0-32.0); Chloride 108 meq/L (98-107); Glomerular Filtration Rate 62 mL/min (>89); Glucose,Random 147 mg/dL (74-106); Potassium 3.9 meq/L (3.5-5.1); Sodium 139 meq/L (136-145)
[2017-10-12 21:04] LABS: Alanine Aminotransferase 127 U/L (12-78); Aspartate Aminotransferase 56 U/L (15-37); Iron 144 mcg/dL (65-175)
[2017-10-12 21:29] LABS: % Iron Saturation 77.9 % (20-50); Alkaline Phosphatase 138 U/L (45-117); Ferritin 869 ng/mL (26-388); Total Iron Binding Capacity 185 mcg/dL (250-450); Total Protein 6.5 g/dL (6.4-8.2); Vitamin B12 908 pg/mL (193-986)
[2017-10-12] MEDS: Sod Chloride 0.9% Inj 1,000 ML IV.CONT SCH (21:36)
[2017-10-13] MEDS: Piperacil/Tazo 4.5 GM Premix 4.5 GM/100 ML BAG IV.SIG SCH ×2 (02:35→07:54)
[2017-10-13 06:27] LABS: Baso # (Auto) 0.1 th/mm3 (0.0-0.2); Baso % (Auto) 1.5 % (0.0-2.0); Eos # (Auto) 0.4 th/mm3 (0.0-0.4); Eos % (Auto) 5.9 % (0.0-4.0); Hematocrit 24.9 % (39.0-51.0); Hemoglobin 8.3 gm/dL (13.0-17.0); Lymph # (Auto) 2.1 th/mm3 (1.0-4.8); Lymph % (Auto) 35.3 % (9.0-44.0); Mean Corpuscular HGB Conc 33.3 % (32.0-36.0); Mean Corpuscular Hemoglobin 36.3 pg (27.0-34.0); Mean Corpuscular Volume 108.8 fL (80.0-100.0); Mean Platelet Volume 9.8 fL (7.0-11.0); Mono # (Auto) 0.4 th/mm3 (0.0-0.9); Mono % (Auto) 6.9 % (0.0-8.0); Neut % (Auto) 50.4 % (16.0-70.0); Platelet Count 116 th/mm3 (150-450); Red Blood Count 2.29 mil/mm3 (4.50-5.90); Red Cell Distribution Width 29.4 % (11.6-17.2)
[2017-10-13 06:47] LABS: Alanine Aminotransferase 114 U/L (12-78); Albumin 3.2 g/dL (3.4-5.0); Anion Gap 10 meq/L (5-15); Aspartate Aminotransferase 50 U/L (15-37); Blood Urea Nitrogen 9 mg/dL (7-18); Calcium 8.6 mg/dL (8.5-10.1); Carbon Dioxide 23.1 meq/L (21.0-32.0); Chloride 109 meq/L (98-107); Glomerular Filtration Rate 66 mL/min (>89); Glucose,Random 112 mg/dL (74-106); Lipase 180 U/L (73-393); Potassium 3.9 meq/L (3.5-5.1); Sodium 142 meq/L (136-145)
[2017-10-13 06:49] LABS: Alkaline Phosphatase 135 U/L (45-117); Total Protein 6.4 g/dL (6.4-8.2)
[2017-10-13] MEDS: Pantoprazole Sodium 20 MG DR Tablet PO SCH (07:59)
[2017-10-13] MEDS: Senna/Docusate Sodium 8.6/50 MG Tablet PO SCH (07:59)
[2017-10-13 09:36] LABS: Ovalocytes 1+
--- NOTE | 2017-10-13 10:30 | P.PN ---
Physical Exam Vital signs: Vital Signs 10/12/17 12:00 10/12/17 16:00 10/12/17 18:29 Temperature 97.1 F L 97.5 F L Pulse Rate 68 67 Respiratory Rate 17 18 Blood Pressure 117/62 115/68 Pulse Oximetry 96 97 97 10/12/17 20:00 10/13/17 00:00 10/13/17 07:52 Temperature 97.7 F 97.9 F 98 F Pulse Rate 70 72 73 Respiratory Rate 16 16 17 Blood Pressure 120/60 122/63 120/58 L Pulse Oximetry 95 97 95 Intake & Output 10/12/17 10/13/17 10/13/17 18:59 06:59 18:59 Intake Total 700 / 700 680 / 680 Output Total 1999 Balance 700 / 700 -1320 / -1320 Weight 91 kg Intake: IV 200 / 200 200 / 200 Zosyn 4.5 GM Premix 4.5 gm In 200 / 200 200 / 200 100 ml @ 200 mls/hr IV.SIG Q6H [facility] Rx#:[id number] Oral 500 / 500 480 / 480 Output: Urine 1999 Other: # Voids 6 Date of Last Bowel Movement 10/10/17 # Bowel Movements 1 Narrative: Subjective: Follow-up sepsis, elevated LFT suspected cholangitis He is in the chair, appears in nad. No abdominal pain. No n/v/d/c. No fever or chills. Physical exam: GENERAL: Pleasant 87 yo male, in the chair appears in not acute distress. CARDIOVASCULAR: Regular rate and rhythm. No murmurs. RESPIRATORY: No accessory muscle use. Clear to auscultation. Breath sounds equal bilaterally. GASTROINTESTINAL: Abdomen soft, no tenderness, nondistended. MUSCULOSKELETAL: Extremities without clubbing, cyanosis, or edema. No obvious deformities. NEUROLOGICAL: Awake and alert. No obvious cranial nerve deficits. Motor grossly within normal limits. Five out of 5 muscle strength in the arms and legs. Normal speech. Assessment and Plan Sepsis ( fever ;leukocytosis, source GI) Blood cx pending Continue zosyn IV, discharged on p.o. antibiotics Consult GI appreciate recommendations Obstructive jaundice secondary biliary sludge -s/p ERCP with stent placement, s/ p sphincterotomy Elevated LFTs- mild cholangitis AST-211 ALT-143 T bili-4.1 Alk phos-167. Improving. But not at baseline. Leukocytosis and elevated lactic acid. Pt presents with chest pain that began last night after eating a snack. Was unable to sleep due to pain. Associated fever and chills. Denies nausea, vomiting, abdominal pain. History of choledocholithiasis S/P ERCP with stone extraction and stent placement in Feb, later that day was hospitalized for cholangitis S/P stent exchange. Most recent ERCP in May of this year --> Normal appearing ampulla. A previously placed ampulla stent was seen extending from the orifice. Previous stent snared and removed. Ampulla dilated with 8mm Max pas balloon to 10 BIBI for 30 seconds. Some bleeding at the ampulla, ceased spontaneously. CBD washed generously with NS. No filling defects. Pt denies ETOH, new prescription medication, OTC herbs and supplements. Denies tattoos, history of IV drug use. Has had same sexual partner for over 40 years. Denies personal history and family history of liver issues. CT abdomen and pelvis W IV contrast reviewed and findings discussed with GI : No acute CT abnormality in the abdomen or pelvis. Status post cholecystectomy with prominent common bile duct typically due to postcholecystectomy reservoir effect. However, patient's common bile duct was similarly dilated prior to cholecystectomy on prior CT exam. Etiology is therefore unclear. Normal appendix. Colonic diverticulosis without definitive evidence for diverticulitis. 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 Additional ancillary findings , as above. Note that Pt unable to have MRCP due to pacemaker GI ff. Status post placement of an internal biliary stent which appears to be in good position, imaging reviewed S/p ERCP with sphincterotomy and internal biliary stent placement . Mild cholangitis-resolved elevated lfts ,higher today possible post ERCP Recommendations Advance diet continue antibiotics start Acitgall Monitor LFTs ERCP in 8-12 weeks Advance diet per GI recommendations. Patient tolerates regular diet. Discussed Condition With: pt, nurse, at bedside Discussed with Dr. Chong HANDLEY, the patient is clear for discharge to follow-up as outpatient with GI. The patient is improving, he and his does not want home health at home. The patient's discharge home fairly stable condition to follow-up with PCP and consultants as outpatient. - Urinary Catheter Management t Cath placed during this visit: yes Reason for continuing: Not indwelling catheter Insertion date: 10/10/17 Results - Labs CBC & Chem 7: 10/13/17 05:39 10/13/17 05:39 Laboratory Results - last 24 hr 10/12/17 10/13/17 10/13/17 20:24 05:39 05:39 WBC 6.0 RBC 2.29 L Hgb 8.3 L Hct 24.9 L MCV 108.8 H MCH 36.3 H MCHC 33.3 RDW 29.4 H Plt Count 116 L MPV 9.8 Prelim Diff (Auto) Slide review pending Neut % (Auto) 50.4 Lymph % (Auto) 35.3 [place] % (Auto) 6.9 Eos % (Auto) 5.9 H Baso % (Auto) 1.5 Neut # (Auto) 3.0 Lymph # (Auto) 2.1 [place] # (Auto) 0.4 Eos # (Auto) 0.4 Baso # (Auto) 0.1 WBC Differential . Diff Scan Auto diff confirmed Differential Comment . Ovalocytes 1+ H Keratocytes Occ H Sodium 139 142 Potassium 3.9 3.9 Chloride 108 H 109 H Carbon Dioxide 22.1 23.1 Anion Gap 9 10 BUN 11 9 Creatinine 1.13 1.07 Estimated GFR 62 L 66 L Random Glucose 147 H 112 H Calcium 8.5 8.6 Iron 144 TIBC 185 L % Saturation 77.9 H Ferritin 869 H Total Bilirubin 2.4 H 2.8 H AST 56 H 50 H ALT 127 H 114 H Alkaline Phosphatase 138 H 135 H Total Protein 6.5 6.4 Albumin 3.1 L 3.2 L Lipase 180 Vitamin B12 908 Folate Greater than 20.0 H Microbiology 10/10/17 10:30 Blood - Peripheral Aerobic Blood Culture - Preliminary No growth in 2 days 10/10/17 10:30 Blood - Peripheral Anaerobic Blood Culture - Preliminary No growth in 2 days 10/10/17 10:25 Blood - Peripheral Aerobic Blood Culture - Preliminary No growth in 2 days 10/10/17 10:25 Blood - Peripheral Anaerobic Blood Culture - Preliminary No growth in 2 days - Procedures S/p ERCP with sphincterotomy and internal biliary stent placement .
--- NOTE | 2017-10-13 10:43 | P.DS ---
Date of admission: 10/10/17 14:28 Primary care physician: Bimal Cottrell Brief History from admission: This is a very pleasant 87 yo M with PMH significant for macular degeneration, BPH, and GERD who presented to the ER this morning with complaints of chest pain , fever, and chills. Pt reports chest pain began last night after eating a snack and going to bed, did not sleep all night. States pain has resolved since coming to the emergency department. Denies associated nausea and vomiting. Denies acid reflux, abdominal pain, and changes in bowel habits. In ER pt was found to have elevated LFTs. He denies personal history and family history of liver issues. Of note, pt had history of choledocholithiasis in February 2017 underwent outpatient ERCP with stone removal and stent placement. Admitted to the hospital later that day with fever and suspected cholangitis, stent was replaced Feb 26. Pt had most recent ERCP on May 28 of this year and had Normal appearing ampulla. A previously placed ampulla stent was seen extending from the orifice. Previous stent snared and removed. Ampulla dilated with 8mm Max pas balloon to 10 BIBI for 30 seconds. Some bleeding at the ampulla, ceased spontaneously. CBD washed generously with NS. No filling defects. Pt denies ETOH, new prescription medication, OTC herbs and supplements. Denies tattoos, history of IV drug use. Has had same sexual partner for over 40 years. Family history. Says family is healthy , no HTN, DM, strokes or h/o cancer that runs in family DS: Medications - Discharge Medications Prescriptions: ciprofloxacin [Cipro] 500 mg PO BID 7 Days #14 ml metronidazole [Flagyl] 500 mg PO TID 7 Days #42 tab ursodiol [Actigall] 300 mg PO BID #120 cap DS: Summary Hospital Course: Sepsis ( fever ;leukocytosis, source GI) Blood cx NTD Continue zosyn IV , switch to PO antibiotics at DC Consult GI appreciate recommendations Obstructive jaundice secondary biliary sludge -s/p ERCP with stent placement, s/ p sphincterotomy Elevated LFTs- mild cholangitis AST-211 ALT-143 T bili-4.1 Alk phos-167. Improving. But not at baseline. Leukocytosis and elevated lactic acid. Pt presents with chest pain that began last night after eating a snack. Was unable to sleep due to pain. Associated fever and chills. Denies nausea, vomiting, abdominal pain. History of choledocholithiasis S/P ERCP with stone extraction and stent placement in Feb, later that day was hospitalized for cholangitis S/P stent exchange. Most recent ERCP in May of this year --> Normal appearing ampulla. A previously placed ampulla stent was seen extending from the orifice. Previous stent snared and removed. Ampulla dilated with 8mm Max pas balloon to 10 BIBI for 30 seconds. Some bleeding at the ampulla, ceased spontaneously. CBD washed generously with NS. No filling defects. Pt denies ETOH, new prescription medication, OTC herbs and supplements. Denies tattoos, history of IV drug use. Has had same sexual partner for over 40 years. Denies personal history and family history of liver issues. CT abdomen and pelvis W IV contrast reviewed and findings discussed with GI : No acute CT abnormality in the abdomen or pelvis. Status post cholecystectomy with prominent common bile duct typically due to postcholecystectomy reservoir effect. However, patient's common bile duct was similarly dilated prior to cholecystectomy on prior CT exam. Etiology is therefore unclear. Normal appendix. Colonic diverticulosis without definitive evidence for diverticulitis. 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 Additional ancillary findings , as above. Note that Pt unable to have MRCP due to pacemaker GI ff. Status post placement of an internal biliary stent which appears to be in good position, imaging reviewed S/p ERCP with sphincterotomy and internal biliary stent placement . Mild cholangitis-resolved elevated lfts ,higher today possible post ERCP Recommendations Advance diet continue antibiotics started Acitgall , continue at DC Monitor LFTs ERCP in 8-12 weeks Advance diet per GI recommendations. Patient tolerates regular diet. Patient improved significantly DC home in stable condition to follow up as OP with PCP and consultants Patient and family refusing home health. - Time Spent with Patient Total time spent providing and/or coordinating discharge services: Greater than 30 minutes - Quality: VTE Deep Vein Thrombosis/Pulmonary Embolism Present on Admission: No Exam Vital signs: Vital Signs 10/12/17 12:00 10/12/17 16:00 10/12/17 18:29 Temperature 97.1 F L 97.5 F L Pulse Rate 68 67 Respiratory Rate 17 18 Blood Pressure 117/62 115/68 Pulse Oximetry 96 97 97 10/12/17 20:00 10/13/17 00:00 10/13/17 07:52 Temperature 97.7 F 97.9 F 98 F Pulse Rate 70 72 73 Respiratory Rate 16 16 17 Blood Pressure 120/60 122/63 120/58 L Pulse Oximetry 95 97 95 Intake & Output 10/12/17 10/13/17 10/13/17 18:59 06:59 18:59 Intake Total 700 / 700 680 / 680 Output Total 1999 Balance 700 / 700 -1320 / -1320 Weight 91 kg Intake: IV 200 / 200 200 / 200 Zosyn 4.5 GM Premix 4.5 gm In 200 / 200 200 / 200 100 ml @ 200 mls/hr IV.SIG Q6H [facility] Rx#:[id number] Oral 500 / 500 480 / 480 Output: Urine 1999 Other: # Voids 6 Date of Last Bowel Movement 10/10/17 # Bowel Movements 1 Narrative: GENERAL: Pleasant 87 yo male, in the chair appears in not acute distress. CARDIOVASCULAR: Regular rate and rhythm. No murmurs. RESPIRATORY: No accessory muscle use. Clear to auscultation. Breath sounds equal bilaterally. GASTROINTESTINAL: Abdomen soft, no tenderness, nondistended. MUSCULOSKELETAL: Extremities without clubbing, cyanosis, or edema. No obvious deformities. NEUROLOGICAL: Awake and alert. No obvious cranial nerve deficits. Hard of hearing. Normal speech. Results Procedures completed during hospitalization: S/p ERCP with sphincterotomy and internal biliary stent placement . Labs on day of discharge: Labs from last 24 hours 10/13/17 10/13/17 10/12/17 05:39 05:39 20:24 WBC 6.0 RBC 2.29 L Hgb 8.3 L Hct 24.9 L MCV 108.8 H MCH 36.3 H MCHC 33.3 RDW 29.4 H Plt Count 116 L MPV 9.8 Prelim Diff (Auto) Slide review pending Neut % (Auto) 50.4 Lymph % (Auto) 35.3 [place] % (Auto) 6.9 Eos % (Auto) 5.9 H Baso % (Auto) 1.5 Neut # (Auto) 3.0 Lymph # (Auto) 2.1 [place] # (Auto) 0.4 Eos # (Auto) 0.4 Baso # (Auto) 0.1 WBC Differential . Diff Scan Auto diff confirmed Differential Comment . Ovalocytes 1+ H Keratocytes Occ H Sodium 142 139 Potassium 3.9 3.9 Chloride 109 H 108 H Carbon Dioxide 23.1 22.1 Anion Gap 10 9 BUN 9 11 Creatinine 1.07 1.13 Estimated GFR 66 L 62 L Random Glucose 112 H 147 H Calcium 8.6 8.5 Iron 144 TIBC 185 L % Saturation 77.9 H Ferritin 869 H Total Bilirubin 2.8 H 2.4 H AST 50 H 56 H ALT 114 H 127 H Alkaline Phosphatase 135 H 138 H Total Protein 6.4 6.5 Albumin 3.2 L 3.1 L Lipase 180 Vitamin B12 908 Folate Greater than 20.0 H Preliminary micro results at discharge 10/10/17 10:30 Aerobic Blood Culture - Preliminary Blood - Peripheral No growth in 2 days Anaerobic Blood Culture - Preliminary No growth in 2 days 10/10/17 10:25 Aerobic Blood Culture - Preliminary Blood - Peripheral No growth in 2 days Anaerobic Blood Culture - Preliminary No growth in 2 days - Impressions ITS Impressions Chest X-Ray 10/10/17 06:10 CONCLUSION: Stable appearance of the lungs with mild left basilar atelectasis. Abdomen/Pelvis CT 10/10/17 08:13 CONCLUSION: 1. No acute CT abnormality in the abdomen or pelvis. 2. Status post cholecystectomy with prominent common bile duct typically due to postcholecystectomy reservoir effect. However, patient's common bile duct was similarly dilated prior to cholecystectomy on prior CT exam. Etiology is therefore unclear. 3. Normal appendix. 4. Colonic diverticulosis without definitive evidence for diverticulitis. 5. 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 6. Additional ancillary findings, as above. GI Procedure 10/11/17 00:00 CONCLUSION: Status post placement of an internal biliary stent which appears to be in good position. Discharge Plan - Discharge Disposition Patient Disposition: Discharge Home - Discharge Condition Condition: Stable - Discharge Order Discharge Orders: Discharge Order (Routine); Ordered 10/13/17 Ordered By: Ana Jackson - Discharge Details Anticipated Discharge Date: 10/13/17 - Physicians Team Primary Care Provider: Bimal Cottrell Attending Provider: Ana Jackson Other Providers: Ellen Schwarz MD ; Nilesh Galloway
--- NOTE | 2017-10-13 12:34 | P.PNGI ---
Subjective Interval history: Feeling better .Ready to go home .LFTS better.No nausea, vomiting , abdominal pain. Biliary sludge , s/p ercp with stent and sphincterotomy , started on Actigall Physical Exam Vital signs: Vital Signs 10/12/17 16:00 10/12/17 18:29 10/12/17 20:00 Temperature 97.5 F L 97.7 F Pulse Rate 67 70 Respiratory Rate 18 16 Blood Pressure 115/68 120/60 Pulse Oximetry 97 97 95 10/13/17 00:00 10/13/17 07:52 Temperature 97.9 F 98 F Pulse Rate 72 73 Respiratory Rate 16 17 Blood Pressure 122/63 120/58 L Pulse Oximetry 97 95 Intake & Output 10/12/17 10/13/17 10/13/17 18:59 06:59 18:59 Intake Total 700 / 700 680 / 680 1100 / 1100 Output Total 2000 / 2000 Balance 700 / 700 -1320 / -1320 1100 / 1100 Weight 91 kg Intake: IV 200 / 200 200 / 200 1100 / 1100 NS Inj 1,000 ML @ 100 mls/hr IV 1000 / 1000 .CONT .Q10H [facility] Rx#:[id number] Zosyn 4.5 GM Premix 4.5 gm In 200 / 200 200 / 200 100 / 100 100 ml @ 200 mls/hr IV.SIG Q6H K[facility]K Rx#:[id number] Oral 500 / 500 480 / 480 Output: Urine 1999 / 1999 Other: # Voids 6 Date of Last Bowel Movement 10/10/17 # Bowel Movements 1 - Constitutional no acute distress - Routine HEENT Exam Head: Present: normocephalic Eye: Present: conjunctival icterus - Routine Cardiovascular Exam Present: S1, S2 - Routine Abdominal Exam Present: soft - Routine Skin Exam Present: jaundice - Routine Neurological Exam Present: alert, oriented X3 - Urinary Catheter Management t Cath placed during this visit: yes Reason for continuing: Not indwelling catheter Insertion date: 10/10/17 Results - Labs CBC & Chem 7: 10/13/17 05:39 10/13/17 05:39 Laboratory Results - last 24 hr 10/12/17 10/13/17 10/13/17 20:24 05:39 05:39 WBC 6.0 RBC 2.29 L Hgb 8.3 L Hct 24.9 L MCV 108.8 H MCH 36.3 H MCHC 33.3 RDW 29.4 H Plt Count 116 L MPV 9.8 Prelim Diff (Auto) Slide review pending Neut % (Auto) 50.4 Lymph % (Auto) 35.3 Hand % (Auto) 6.9 Eos % (Auto) 5.9 H Baso % (Auto) 1.5 Neut # (Auto) 3.0 Lymph # (Auto) 2.1 Hand # (Auto) 0.4 Eos # (Auto) 0.4 Baso # (Auto) 0.1 WBC Differential . Diff Scan Auto diff confirmed Differential Comment . Ovalocytes 1+ H Keratocytes Occ H Sodium 139 142 Potassium 3.9 3.9 Chloride 108 H 109 H Carbon Dioxide 22.1 23.1 Anion Gap 9 10 BUN 11 9 Creatinine 1.13 1.07 Estimated GFR 62 L 66 L Random Glucose 147 H 112 H Calcium 8.5 8.6 Iron 144 TIBC 185 L % Saturation 77.9 H Ferritin 869 H Total Bilirubin 2.4 H 2.8 H AST 56 H 50 H ALT 127 H 114 H Alkaline Phosphatase 138 H 135 H Total Protein 6.5 6.4 Albumin 3.1 L 3.2 L Lipase 180 Vitamin B12 908 Folate Greater than 20.0 H Microbiology 10/10/17 10:30 Blood - Peripheral Aerobic Blood Culture - Preliminary No growth in 3 days 10/10/17 10:30 Blood - Peripheral Anaerobic Blood Culture - Preliminary No growth in 3 days 10/10/17 10:25 Blood - Peripheral Aerobic Blood Culture - Preliminary No growth in 3 days 10/10/17 10:25 Blood - Peripheral Anaerobic Blood Culture - Preliminary No growth in 3 days - Procedures S/p ERCP with sphincterotomy and internal biliary stent placement . Assessment and Plan (1) Biliary sludge Status: Acute Code(s): K83.8 - Other specified diseases of biliary tract (2) Atypical chest pain Status: Acute Code(s): R07.89 - Other chest pain (3) Elevated LFTs Status: Acute Code(s): R94.5 - Abnormal results of liver function studies (4) Macrocytic anemia Status: Acute Code(s): D53.9 - Nutritional anemia, unspecified (5) Pancytopenia Status: Acute Code(s): D61.818 - Other pancytopenia - Attending Attestation Obstructive jaundice secondary biliary sludge-s/p ERCP with sphincterotomy and stent placement Elevated LFTs secondary biliary sludge-improving Cholangitis-resolved Macrocytic anemia Recommendations Ok to dc home from [facility] in 1-2 weeks lfts, cb next week hematology evaluation op signs and symptoms of cholangitis discusses gi will sign off
== END 2017-10-13 13:54 | disposition home or self-care (01) ==
LOC: NEPE 05:30 → NEDA 14:28 → N07 17:14
PROVIDERS: ADMIT Hospitalist; ATTEND Hospitalist

== ENCOUNTER 2017-10-17 03:33 | Inpatient (IN) ==
[2017-10-17] MEDS ORDERED: Morphine Inj 4 MG/ML Vial IV.PUSH ONE (03:49)
[2017-10-17] MEDS ORDERED: Sod Chloride 0.9% Inj 1,000 ML IV.CONT SCH (04:00)
--- NOTE | 2017-10-17 04:04 | ED ---
HPI General Chief Complaint: Abdominal Pain Stated Complaint: Abd Pain Time Seen by Provider: 10/17/17 03:49 History of Present Illness HPI narrative: 87-year-old male presents to the emergency department for complaint of abdominal pain since 5 PM. Patient was recently hospitalized 7 through 10/13/17 for abdominal pain associated with choledocholithiasis and ascending cholangitis. Patient underwent ERCP with stone removal and stent placement by his fisher trawl net Dr. kenya lama. Patient is status post cholecystectomy since May 2017. Patient has normal appendix diverticulosis without diverticulitis and was discharged home on oral antibiotics ciprofloxacin and Flagyl. Patient has been taking the medications without issue. Today after taking a dose of Flagyl developed abdominal pain. Patient does not drink alcoholic beverages. Patient's had no fever chills. Patient denies nausea or vomiting. Patient's had no diarrhea and no melena patient continues to have good urine output. No report of chest pain or shortness of breath. Patient has underlying history of diverticulosis cholecystitis with cholecystectomy choledocholithiasis with ERCP stone extraction and stent placement patient is not diabetic. Related Data Home Medications Medication Instructions Recorded Confirmed hydroxyzine HCl See Label Instructions .ROUTE 10/10/17 10/17/17 .COMPLEX omeprazole magnesium [Prilosec OTC] 20 mg PO DAILY 10/10/17 10/17/17 Previous Rx's Medication Instructions Recorded ciprofloxacin [Cipro] 500 mg PO BID 7 Days #14 ml 10/13/17 metronidazole [Flagyl] 500 mg PO TID 7 Days #42 tab 10/13/17 ursodiol [Actigall] 300 mg PO BID #120 cap 10/13/17 Allergies Allergy/AdvReac Type Severity Reaction Status Date / Time aspirin Allergy Severe Hives Verified 10/17/17 03:39 oxaprozin Allergy Severe BRUISES Verified 10/17/17 03:39 Review of Systems Except as stated in HPI: all other systems reviewed are negative [facility]LY [facility] Medical History Medical History History of biliary stent insertion (Acute) GERD (gastroesophageal reflux disease) (Acute) Hip fracture, right (Acute) Pacemaker (Acute) Surgical History Surgical History 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) H/O hernia repair (Acute) History of knee replacement (Acute) Hx of cholecystectomy (Acute) Social History Social History Substance History: No History of Abuse Second Hand Smoke Exposure: No Smoking Status: Former smoker Tobacco Type: Cigarettes How Often Do You Have a Drink Containing Alcohol: Never Recent Travel in [facility] within the Last 8 Weeks: No Recent Out of Country Travel within the Last 8 Weeks: No Immunization History Tetanus Immunization: <5 Years Hx Influenza Vaccine This Season: Yes Exam Narrative Exam Narrative: GENERAL: Well-nourished, well-developed patient. SKIN: Focused skin assessment warm/dry. HEAD: Normocephalic. EYES: No scleral icterus. No injection or drainage. NECK: Supple, trachea midline. No JVD or lymphadenopathy. CARDIOVASCULAR: Regular rate and rhythm without murmurs, gallops, or rubs. RESPIRATORY: Breath sounds equal bilaterally. No accessory muscle use. GASTROINTESTINAL: Abdomen soft, diffusely tender with primary discomfort supraumbilical and periumbilical to palpation. Patient does have an area of ecchymosis to the right lower quadrant. Abdomen is otherwise nondistended. Decreased bowel sounds. MUSCULOSKELETAL: No cyanosis, or edema. BACK: Nontender without obvious deformity. No CVA tenderness. Course Initial Documented Vital Signs Temperature 97.6 F 10/17/17 03:36 Pulse Rate 71 10/17/17 03:36 Respiratory Rate 20 10/17/17 03:36 Blood Pressure 148/69 H 10/17/17 03:36 Pulse Oximetry 95 10/17/17 03:36 Last Documented Vital Signs Temperature 97.6 F 10/17/17 03:36 Pulse Rate 70 10/17/17 05:30 Respiratory Rate 16 10/17/17 05:30 Blood Pressure 159/72 H 10/17/17 05:30 Pulse Oximetry 95 10/17/17 05:30 Medical Decision Making [facility] Narrative Medical decision making narrative: 87-year-old male with recent hospital fever chills sepsis GI evaluation with ERCP and biliary stent placement cholangitis and elevated LFTs Patient administered morphine sulfate 3 mg IV and IV fluids Patient with leukocytosis 15,200 with mild anemia hemoglobin 10.1 metabolic panel remarkable for bicarb of 20.6 however lactic acid is 1.3 mild elevation of glucose 200; LFTs are elevated but are trending downward compared to LFTs from 10/13/17 Patient identified to have elevated lipase of 9833 CT abdomen pelvis pending however patient's case has been discussed with on- call GI and medicine service medicine will admit patient with consult to GI patient is recently status post admission for sepsis cholangitis ERCP identified to have biliary sludge and new stent placement. Patient's gastrologist is results regard patient's case discussed with Dr. Odonnell; Dr. An to admit to her service. Patient and spouse at bedside informed of plan for admission patient will be a bowel rest receiving IV fluids and n.p.o. Pain is controlled after her first dose of morphine. Differential Diagnosis Differential Diagnosis: Abdominal pain, perforated viscus, pancreatitis, choledocholithiasis, cholangitis, atypical chest pain Medical Records Medical records reviewed: Yes I reviewed the patient's medical records. Lab Data Lab results reviewed: Yes I reviewed the patient's lab results. Result diagrams: 10/17/17 04:22 10/17/17 04:22 Lab Results 10/17/17 10/17/17 10/17/17 Range/Units 04:22 04:22 04:22 WBC 15.2 H (4.0-11.0) th/mm3 RBC 2.80 L (4.50-5.90) mil/mm3 Hgb 10.1 L (13.0-17.0) gm/dL Hct 30.9 L (39.0-51.0) % MCV 110.4 H (80.0-100.0) fL MCH 36.0 H (27.0-34.0) pg MCHC 32.6 (32.0-36.0) % RDW 29.5 H (11.6-17.2) % Plt Count 176 D (150-450) th/mm3 MPV 10.2 (7.0-11.0) fL Prelim Diff (Auto) Slide review pending Neut % (Auto) 86.7 H (16.0-70.0) % Lymph % (Auto) 8.3 L (9.0-44.0) % Pender % (Auto) 4.0 (0.0-8.0) % Eos % (Auto) 0.0 (0.0-4.0) % Baso % (Auto) 1.0 (0.0-2.0) % Neut # (Auto) 13.2 H (1.8-7.7) th/mm3 Lymph # (Auto) 1.3 (1.0-4.8) th/mm3 Pender # (Auto) 0.6 (0.0-0.9) th/mm3 Eos # (Auto) 0.0 (0.0-0.4) th/mm3 Baso # (Auto) 0.2 (0.0-0.2) th/mm3 WBC Differential Manual diff final Seg Neuts % (Manual) 74 H (16-70) % Band Neuts % (Manual) 13 H (0-6) % Lymphocytes % (Manual) 10 (9-44) % Monocytes % (Manual) 3 (0-8) % Abs Neuts (Manual) 13.2 H (1.8-7.7) th/mm3 Differential Comment . Platelet Estimate Normal (Normal) Platelet Morphology Normal (Normal) Basophilic Stippling Faint H (None) Pappenheimer Bodies Present H (None) Ovalocytes 1+ H (None) Acanthocytes (Spur) Occ H (None) Keratocytes Occ H (None) Sodium 139 (136-145) meq/L Potassium 4.0 (3.5-5.1) meq/L Chloride 106 (98-107) meq/L Carbon Dioxide 20.6 L (21.0-32.0) meq/L Anion Gap 12 (5-15) meq/L BUN 18 (7-18) mg/dL Creatinine 0.93 (0.60-1.30) mg/dL Random Glucose 202 H (74-106) mg/dL Lactic Acid 1.3 (0.4-2.0) mmol/L Calcium 8.3 L (8.5-10.1) mg/dL Total Bilirubin 1.5 H (0.2-1.0) mg/dL AST 67 H (15-37) U/L ALT 112 H (12-78) U/L Alkaline Phosphatase 124 H (45-117) U/L Troponin I Less than 0.02 L (0.02-0.05) ng/mL Total Protein 7.3 D (6.4-8.2) g/dL Albumin 3.8 (3.4-5.0) g/dL Lipase 9833 H (73-393) U/L Imaging Data Radiologist's impression: ITS Impressions Abdomen X-Ray 10/17/17 03:49 CONCLUSION: 1. No significant free intraperitoneal air. ECG Data Interpretation: EKG is sinus rhythm rate 68 first-degree AV block right bundle branch block no acute ST elevation; rbbb noted on prior ekg's Discharge Plan Discharge Disposition Patient Disposition: 30 Still Patient Discharge Condition Condition: Stable Discharge Details Diagnosis: Pancreatitis Physicians Team ED Provider: Sofia Jim Primary Care Provider: Bimal Cottrell Attending Provider: Liliya An Status ED Status: Admitted Patient
[2017-10-17 04:54] LABS: Baso # (Auto) 0.2 th/mm3 (0.0-0.2); Hematocrit 30.9 % (39.0-51.0); Hemoglobin 10.1 gm/dL (13.0-17.0); Lymph # (Auto) 1.3 th/mm3 (1.0-4.8); Lymph % (Auto) 8.3 % (9.0-44.0); Mean Corpuscular HGB Conc 32.6 % (32.0-36.0); Mean Corpuscular Volume 110.4 fL (80.0-100.0); Mean Platelet Volume 10.2 fL (7.0-11.0); Mono # (Auto) 0.6 th/mm3 (0.0-0.9); Neut # (Auto) 13.2 th/mm3 (1.8-7.7); Neut % (Auto) 86.7 % (16.0-70.0); Platelet Count 176 th/mm3 (150-450); Red Cell Distribution Width 29.5 % (11.6-17.2); White Blood Count 15.2 th/mm3 (4.0-11.0)
[2017-10-17 05:06] LABS: Alanine Aminotransferase 112 U/L (12-78); Albumin 3.8 g/dL (3.4-5.0); Anion Gap 12 meq/L (5-15); Aspartate Aminotransferase 67 U/L (15-37); Blood Urea Nitrogen 18 mg/dL (7-18); Calcium 8.3 mg/dL (8.5-10.1); Carbon Dioxide 20.6 meq/L (21.0-32.0); Chloride 106 meq/L (98-107); Glucose,Random 202 mg/dL (74-106); Sodium 139 meq/L (136-145)
[2017-10-17 05:10] LABS: Alkaline Phosphatase 124 U/L (45-117); Lipase 9833 U/L (73-393); Total Protein 7.3 g/dL (6.4-8.2)
[2017-10-17] MEDS ORDERED: Piperacil/Tazo 4.5 GM Premix 4.5 GM/100 ML BAG IV.SIG ONE (05:16)
--- NOTE | 2017-10-17 05:21 | XR ---
EXAM DATE: 10/17/2017 5:13 AM EDT AGE/SEX: 87 years / Male INDICATIONS: Free air. CLINICAL DATA: This is the patient's initial encounter. Patient reports that signs and symptoms have been present for 1 day and indicates a pain score of 4/10. MEDICAL/SURGICAL HISTORY: Gastroesophageal reflux disease. Cholecystectomy. Hernia pair, right hip fracture. COMPARISON: [facility] [place], 10/10/2017. . FINDINGS: A single erect view of the abdomen demonstrates the lower lungs to be clear.No evidence of free intra peritoneal gas.There is a general paucity of small bowel gas. Multiple calcified granulomas in the lo wer lung zones. CONCLUSION: 1. No significant free intraperitoneal air. Electronically signed by: Sy Medellin MD 10/17/2017 5:20 AM EDT
[2017-10-17 05:45] LABS: Lymphocytes 10 % (9-44); Monocytes 3 % (0-8)
[2017-10-17 05:47] LABS: Acanthocytes Occ; Ovalocytes 1+; Platelet Estimate Normal (Normal); Platelet Morphology Normal (Normal)
[2017-10-17 05:48] LABS: Pappenheimer Bodies Present
--- NOTE | 2017-10-17 06:14 | CT ---
EXAM DATE: 10/17/2017 6:02 AM EDT AGE/SEX: 87 years / Male INDICATIONS: Abdominal pain. CLINICAL DATA: This is the patient's initial encounter. Patient reports that signs and symptoms have been present for 1 day and indicates a pain score of 6/10. MEDICAL/SURGICAL HISTORY: Gastroesophageal reflux disease. Pacemaker. Cholecystectomy. Hernia repair, Biliary stent. ORAL CONTRAST: No oral contrast ingested. RADIATION DOSE: 7.37 CTDI (mGy) COMPARISON: [facility] [place]EL[place] W CONTRAST, 10/10/2017. . TECHNIQUE: Multiple contiguous axial images were obtained through the abdomen and pelvis following b olus infusion of 92 ml Omnipaque 350 (iohexol) nonionic water-soluble contrast as a single exam dos e. No oral contrast ingested. Using automated exposure control and adjustment of the mA and/or kV ac cording to patient size, radiation dose was kept as low as reasonably achievable to obtain optimal di agnostic quality images. DICOM format image data is available electronically for review and comparis on. FINDINGS: LOWER LUNGS: Bilateral calcified granulomas. Patchy groundglass opacities. LIVER: Interval placement of common bile duct stent with persistent extra hepatic biliary ductal dil atation and mild central intrahepatic ductal dilatation. Liver is otherwise unremarkable. SPLEEN: Homogeneous density without enlargement. PANCREAS: Interval development of peripancreatic inflammatory stranding. Pancreas uniformly enhances . No peripancreatic fluid collections. KIDNEYS: Stable 8 mm low-density lesion in the inferior pole the right kidney which is too small to fully characterize. Kidneys otherwise demonstrate symmetrical enhancement and are symmetrical in size without radiopaque renal calculi or hydronephrosis. ADRENAL GLANDS: Unremarkable. AORTA: Stable 2.7 cm fusiform infrarenal aortic aneurysm. BOWEL/MESENTERY: Mild sigmoid and scattered colonic diverticulosis. Marginally prominent fluid-fille d loop of proximal jejunum likely reflecting adynamic ileus. No free fluid or drainable fluid collect ions. ABDOMINAL WALL: Intact. RETROPERITONEUM: No evidence of adenopathy in the retrocrural, para-aortic, or deep pelvic regions. BLADDER: Contours are smooth. REPRODUCTIVE: No abnormal masses or calcifications seen. BONY STRUCTURES: Right femoral intramedullary arjun in place. Degenerative spondylosis of the lumbar s pine. CONCLUSION: 1. Moderate peripancreatic inflammatory stranding consistent with pancreatitis. Pancreas enhances un iformly and there is no peripancreatic fluid collection at this time. 2. Interval placement of CBD stent with persistent intra and extra hepatic ductal dilatation. 3. Focal adynamic ileus in the proximal jejunum secondary to the peripancreatic inflammatory changes . 4. Stable additional ancillary findings, as above. Electronically signed by: Sy Medellin MD 10/17/2017 6:13 AM EDT
[2017-10-17] MEDS: Sod Chloride 0.9% Inj 1,000 ML IV.CONT SCH ×4 (06:52→19:48)
--- NOTE | 2017-10-17 09:22 | P.CONGI ---
History of Present Illness Consult date: 10/17/17 Consult reason: ERCP on 10/11 with stent placement, now with elevated LFTs and pancreatitis Chief complaint: Acute Pancreatitis; Recent ERCP History of Present Illness: This is a 87 yo M with PMH significant for macular degeneration, BPH, and GERD who presented to the ER this morning with complaints of abdominal pain that began at 9pm last night after eating his dinner at 8pm. Reports pain is located above his umbilicus, states pain is constant, describes the pain as "hunger pains". Denies associated nausea and vomiting, fever and chills. Reports BMs have been normal, although he has not had a BM yet today. Pt has history of choledocholithiasis and cholangitis, seen by our service last week and on 10/11 had ERCP with findings of dilated CBD and biliary sludge, pt had balloon sweep, sludge extracted, and plastic stent placed. CT abdomen and pelvis done in ER consistent with pancreatitis, stent placement with continued intra and extra hepatic duct dilatation. Labs reveal leukocytosis, elevated LFTs, and elevated lipase. Pt denies history of pancreatitis. Denies ETOH. <Alley Ruiz - Last Filed: 10/17/17 09:24> Review of Systems Constitutional: Denies chills, Denies fever(s) Gastrointestinal: Reports abdominal pain, Reports bloating, Denies change in bowel habits, Denies constipation, Denies nausea, Denies vomiting <Alley Ruiz - Last Filed: 10/17/17 09:24> PMFSH - History History Provided By: Patient, Significant Other - Medical History Medical History: Medical History (Last Updated 10/17/17 @ 03:52 by Liliya Petty RN) History of biliary stent insertion GERD (gastroesophageal reflux disease) Hip fracture, right Pacemaker - Surgical History Surgical History: Surgical History (Last Updated 10/17/17 @ 03:52 by Liliya Petty RN) Cornea replaced by transplant H/O hernia repair History of knee replacement Hx of cholecystectomy - Tobacco History Second Hand Smoke Exposure: No Tobacco Use In Past 30 Days: No Smoking Status: Former smoker Tobacco Type: Cigarettes - Alcohol History How Often Do You Have a Drink Containing Alcohol: Never - Substance Use History Substance History: No History of Abuse - Travel History Recent Travel in the [facility] Within the Last 8 Weeks: No Recent Travel Out of the Country Within the Last 8 Weeks: No - Immunization History Tetanus Immunization: <5 Years Hx Influenza Vaccine This Season: Yes <Allye Ruiz - Last Filed: 10/17/17 09:24> - Medical History Medical History: Medical History (Last Updated 10/17/17 @ 03:52 by Liliya Petty, ELIZA) History of biliary stent insertion GERD (gastroesophageal reflux disease) Hip fracture, right Pacemaker - Surgical History Surgical History: Surgical History (Last Updated 10/17/17 @ 03:52 by Liliya Petty, ELIZA) Cornea replaced by transplant H/O hernia repair History of knee replacement Hx of cholecystectomy <Roseline Odonnell - Last Filed: 10/17/17 20:09> Medications and Allergies Active Medications: Active Medications Sodium Chloride (Ns Inj) 1,000 mls @ 125 mls/hr IV.CONT .Q8H [facility] Stop: 10/17/17 11:59 Last Infusion: 10/17/17 07:24 Dose: 250 mls/hr Sodium Chloride (Ns Inj) 1,000 mls @ 250 mls/hr IV.CONT .Q4H [facility] Last Admin: 10/17/17 06:52 Dose: Not Given Morphine Sulfate (Morphine Inj) 5 mg IV.PUSH Q3H PRN PRN Reason: pain 6-10 Ondansetron HCl (Zofran Inj) 4 mg IV.PUSH Q6H PRN PRN Reason: NAUSEA OR VOMITING Sodium Chloride (Ns Flush) 2 ml IV.FLUSH PRN PRN PRN Reason: FLUSH AFTER USING IV ACCESS Sodium Chloride (Ns Flush) 2 ml IV.FLUSH BID [facility] Last Admin: 10/17/17 09:09 Dose: Not Given Sodium Chloride (Ns Flush) 2 ml IV.FLUSH PRN PRN PRN Reason: FLUSH AFTER USING IV ACCESS <Alley Ruiz - Last Filed: 10/17/17 09:24> Active Medications: Active Medications Heparin Sodium (Porcine) (Heparin Inj) 5,000 units SQ Q12HR [facility] Sodium Chloride (Ns Inj) 1,000 mls @ 250 mls/hr IV.CONT .Q4H [facility] Last Admin: 10/17/17 19:48 Dose: 250 mls/hr Piperacillin/Tazobactam/Dextrose (Zosyn 4.5 Gm Premix) 4.5 gm in 100 mls @ 200 mls/hr IV.SIG Q8HR [facility] Last Infusion: 10/17/17 15:47 Dose: Infused Morphine Sulfate (Morphine Inj) 5 mg IV.PUSH Q3H PRN PRN Reason: pain 6-10 Last Admin: 10/17/17 15:16 Dose: 5 mg Ondansetron HCl (Zofran Inj) 4 mg IV.PUSH Q6H PRN PRN Reason: NAUSEA OR VOMITING Sodium Chloride (Ns Flush) 2 ml IV.FLUSH PRN PRN PRN Reason: FLUSH AFTER USING IV ACCESS Sodium Chloride (Ns Flush) 2 ml IV.FLUSH BID [facility] Last Admin: 10/17/17 09:09 Dose: Not Given Sodium Chloride (Ns Flush) 2 ml IV.FLUSH PRN PRN PRN Reason: FLUSH AFTER USING IV ACCESS <Roseline Odonnell - Last Filed: 10/17/17 20:09> Allergies Allergy/AdvReac Type Severity Reaction Status Date / Time aspirin Allergy Severe Hives Verified 10/17/17 03:39 oxaprozin Allergy Severe BRUISES Verified 10/17/17 03:39 Home Medications Medication Instructions Recorded Confirmed Type hydroxyzine HCl See Label Instructions .ROUTE 10/10/17 10/17/17 History .COMPLEX omeprazole magnesium [Prilosec OTC] 20 mg PO DAILY 10/10/17 10/17/17 History Exam Vital signs: Vital Signs 10/17/17 03:36 10/17/17 03:39 10/17/17 04:41 Temperature 97.6 F Pulse Rate 71 66 Respiratory Rate 20 16 Blood Pressure 148/69 H 148/71 H Pulse Oximetry 95 95 94 L 10/17/17 05:30 10/17/17 07:19 Temperature 98.1 F Pulse Rate 70 69 Respiratory Rate 16 21 Blood Pressure 159/72 H 148/66 H Pulse Oximetry 95 93 L Intake & Output 10/16/17 10/17/17 10/17/17 18:59 06:59 18:59 Weight 90.718 kg - Constitutional no acute distress - Routine HEENT Exam Head: Present: normocephalic, atraumatic - Routine Respiratory Exam Absent: accessory muscle use - Routine Abdominal Exam Present: soft, normoactive bowel sounds, tenderness (upper abdominal tenderness ), distended. Absent: firm, rigid - Routine Skin Exam Present: dry, warm - Routine Neurological Exam Present: alert, oriented X3 <Alley Ruiz - Last Filed: 10/17/17 09:24> Vital signs: Vital Signs 10/17/17 03:36 10/17/17 03:39 10/17/17 04:41 Temperature 97.6 F Pulse Rate 71 66 Respiratory Rate 20 16 Blood Pressure 148/69 H 148/71 H Pulse Oximetry 95 95 94 L 10/17/17 05:30 10/17/17 07:19 10/17/17 11:22 Temperature 98.1 F Pulse Rate 70 69 69 Respiratory Rate 16 21 18 Blood Pressure 159/72 H 148/66 H 157/72 H Pulse Oximetry 95 93 L 92 L 10/17/17 13:00 10/17/17 17:20 10/17/17 17:40 Temperature 97.6 F 97.9 F Pulse Rate 75 82 81 Respiratory Rate 22 22 18 Blood Pressure 147/71 H 148/65 H 151/65 H Pulse Oximetry 96 95 95 Intake & Output 10/17/17 10/17/17 10/18/17 06:59 18:59 06:59 Intake Total 2100 / 2100 1000 / 1000 Balance 2100 / 2100 1000 / 1000 Weight 90.718 kg Intake: IV 2100 / 2100 1000 / 1000 NS Inj 1,000 ML @ 250 mls/hr IV 2000 / 2000 1000 / 1000 .CONT .Q4H [facility] Rx#:[id number] Zosyn 4.5 GM Premix 4.5 gm In 100 / 100 100 ml @ 200 mls/hr IV.SIG Q8HR [facility] Rx#:[id number] Other: Date of Last Bowel Movement 10/16/17 <Roseline Odonnell - Last Filed: 10/17/17 20:09> Results - Labs CBC & Chem 7: 10/17/17 04:22 10/17/17 04:22 Labs: Laboratory Results - last 24 hr 10/17/17 10/17/17 10/17/17 04:22 04:22 04:22 WBC 15.2 H RBC 2.80 L Hgb 10.1 L Hct 30.9 L MCV 110.4 H MCH 36.0 H MCHC 32.6 RDW 29.5 H Plt Count 176 D MPV 10.2 Prelim Diff (Auto) Slide review pending Neut % (Auto) 86.7 H Lymph % (Auto) 8.3 L [place] % (Auto) 4.0 Eos % (Auto) 0.0 Baso % (Auto) 1.0 Neut # (Auto) 13.2 H Lymph # (Auto) 1.3 [place] # (Auto) 0.6 Eos # (Auto) 0.0 Baso # (Auto) 0.2 WBC Differential Manual diff final Seg Neuts % (Manual) 74 H Band Neuts % (Manual) 13 H Lymphocytes % (Manual) 10 Monocytes % (Manual) 3 Abs Neuts (Manual) 13.2 H Differential Comment . Platelet Estimate Normal Platelet Morphology Normal Basophilic Stippling Faint H Pappenheimer Bodies Present H Ovalocytes 1+ H Acanthocytes (Spur) Occ H Keratocytes Occ H Sodium 139 Potassium 4.0 Chloride 106 Carbon Dioxide 20.6 L Anion Gap 12 BUN 18 Creatinine 0.93 Random Glucose 202 H Lactic Acid 1.3 Calcium 8.3 L Total Bilirubin 1.5 H AST 67 H ALT 112 H Alkaline Phosphatase 124 H Troponin I Less than 0.02 L Total Protein 7.3 D Albumin 3.8 Lipase 9833 H - Imaging Impressions Abdomen X-Ray 10/17/17 03:49 CONCLUSION: 1. No significant free intraperitoneal air. Abdomen/Pelvis CT 10/17/17 03:49 CONCLUSION: 1. Moderate peripancreatic inflammatory stranding consistent with pancreatitis. Pancreas enhances uniformly and there is no peripancreatic fluid collection at this time. 2. Interval placement of CBD stent with persistent intra and extra hepatic ductal dilatation. 3. Focal adynamic ileus in the proximal jejunum secondary to the peripancreatic inflammatory changes. 4. Stable additional ancillary findings, as above. <Alley Ruiz - Last Filed: 10/17/17 09:24> - Labs CBC & Chem 7: 10/17/17 12:30 10/17/17 12:30 Labs: Laboratory Results - last 24 hr 10/17/17 10/17/17 10/17/17 04:22 04:22 04:22 WBC 15.2 H RBC 2.80 L Hgb 10.1 L Hct 30.9 L MCV 110.4 H MCH 36.0 H MCHC 32.6 RDW 29.5 H Plt Count 176 D MPV 10.2 Prelim Diff (Auto) Slide review pending Neut % (Auto) 86.7 H Lymph % (Auto) 8.3 L [place] % (Auto) 4.0 Eos % (Auto) 0.0 Baso % (Auto) 1.0 Neut # (Auto) 13.2 H Lymph # (Auto) 1.3 [place] # (Auto) 0.6 Eos # (Auto) 0.0 Baso # (Auto) 0.2 WBC Differential Manual diff final Seg Neuts % (Manual) 74 H Band Neuts % (Manual) 13 H Lymphocytes % (Manual) 10 Monocytes % (Manual) 3 Myelocytes % (Man) Abs Neuts (Manual) 13.2 H Differential Comment . Platelet Estimate Normal Platelet Morphology Normal Dimorphic RBCs Basophilic Stippling Faint H Pappenheimer Bodies Present H Ovalocytes 1+ H Acanthocytes (Spur) Occ H Keratocytes Occ H Sodium 139 Potassium 4.0 Chloride 106 Carbon Dioxide 20.6 L Anion Gap 12 BUN 18 Creatinine 0.93 Estimated GFR Random Glucose 202 H Lactic Acid 1.3 Calcium 8.3 L Total Bilirubin 1.5 H AST 67 H ALT 112 H Alkaline Phosphatase 124 H Troponin I Less than 0.02 L Total Protein 7.3 D Albumin 3.8 Lipase 9833 H Urine Color Urine Clarity Urine pH Ur Specific [place] Urine Protein Urine Glucose (UA) Urine Ketones Urine Occult Blood Urine Nitrate Urine Bilirubin Urine Urobilinogen Ur Leukocyte Esterase Urine RBC Urine WBC Amorphous Sediment Urine Bacteria Urine Mucus Micro UA Comment Urine Culture Comments 10/17/17 10/17/17 10/17/17 12:30 12:30 13:37 WBC 17.9 H RBC 2.94 L Hgb 10.5 L Hct 32.5 L MCV 110.5 H MCH 35.5 H MCHC 32.1 RDW 30.2 H Plt Count 179 MPV 9.3 Prelim Diff (Auto) Slide review pending Neut % (Auto) 87.0 H Lymph % (Auto) 8.0 L [place] % (Auto) 4.6 Eos % (Auto) 0.0 Baso % (Auto) 0.4 Neut # (Auto) 15.5 H Lymph # (Auto) 1.4 [place] # (Auto) 0.8 Eos # (Auto) 0.0 Baso # (Auto) 0.1 WBC Differential Manual diff final Seg Neuts % (Manual) 68 Band Neuts % (Manual) 28 H Lymphocytes % (Manual) 1 L Monocytes % (Manual) 2 Myelocytes % (Man) 1 H Abs Neuts (Manual) 17.4 H Differential Comment . Platelet Estimate Normal Platelet Morphology Normal Dimorphic RBCs Present H Basophilic Stippling Pappenheimer Bodies Ovalocytes 1+ H Acanthocytes (Spur) Keratocytes Sodium 141 Potassium 4.1 Chloride 109 H Carbon Dioxide 24.1 Anion Gap 8 BUN 15 Creatinine 0.96 Estimated GFR 74 L Random Glucose 148 H Lactic Acid Calcium 7.7 L Total Bilirubin AST ALT Alkaline Phosphatase Troponin I Total Protein Albumin Lipase Urine Color Yellow Urine Clarity Clear Urine pH 5.0 Ur Specific [place] Greater than 1.060 H Urine Protein Negative Urine Glucose (UA) 150 H Urine Ketones Negative Urine Occult Blood Negative Urine Nitrate Negative Urine Bilirubin Negative Urine Urobilinogen Less than 2 Ur Leukocyte Esterase Negative Urine RBC 1 Urine WBC 1 Amorphous Sediment Rare H Urine Bacteria Occasional H Urine Mucus Few H Micro UA Comment Cath-culture ind Urine Culture Comments Cath-cult indicated - Imaging Impressions Abdomen X-Ray 10/17/17 03:49 CONCLUSION: 1. No significant free intraperitoneal air. Abdomen/Pelvis CT 10/17/17 03:49 CONCLUSION: 1. Moderate peripancreatic inflammatory stranding consistent with pancreatitis. Pancreas enhances uniformly and there is no peripancreatic fluid collection at this time. 2. Interval placement of CBD stent with persistent intra and extra hepatic ductal dilatation. 3. Focal adynamic ileus in the proximal jejunum secondary to the peripancreatic inflammatory changes. 4. Stable additional ancillary findings, as above. <Roseline Odonnell - Last Filed: 10/17/17 20:09> Assessment and Plan (1) Cholangitis Status: Acute Code(s): K83.0 - Cholangitis (2) Elevated LFTs Status: Acute Code(s): R94.5 - Abnormal results of liver function studies (3) Pancreatitis Status: Acute Code(s): K85.90 - Acute pancreatitis without necrosis or infection, unspecified - Plan Assessment: - Elevated LFTs and pancreatitis with recent ERCP with findings of biliary sludge and bile duct dilatation S/P balloon sweep and plastic stent placement on 10/11- Pt with history of choledocholithiasis and cholangitis. History of cholecystectomy. Complaining of: upper abdominal pain that began at 9pm last night after dinner at 8pm, constant, described as "hunger pains". Denies associated fever, chills, nausea, vomiting. Denies history of pancreatitis. Denies ETOH. CT abdomen and pelvis W IV contrast (10/17) Moderate peripancreatic inflammatory stranding consistent with pancreatitis. Pancreas enhances uniformly and there is no peripancreatic fluid collection at this time. Interval placement of CBD stent with persistent intra and extra hepatic ductal dilatation. Focal adynamic ileus in the proximal jejunum secondary to the peripancreatic inflammatory changes Pt unable to have MRCP due to pacemaker Plan: NPO IVF Pain control ERCP tomorrow Obtain consent Zosyn Monitor LFTs and lipase Further recommendations based on findings and results of above Pt has been seen and examined by myself and Dr. Odonnell and this note is written on his behalf <Alley Ruiz - Last Filed: 10/17/17 09:24> (1) Cholangitis Status: Acute Code(s): K83.0 - Cholangitis (2) Elevated LFTs Status: Acute Code(s): R94.5 - Abnormal results of liver function studies (3) Pancreatitis Status: Acute Code(s): K85.90 - Acute pancreatitis without necrosis or infection, unspecified - Attending Attestation Seen and examined, plan as above, Pancreatitis secondary to stent blockage associated with cholangitis, unlikely post ERCP related, 1 week after the procedure. Will obtain consent for ERCP in AM with stent replacement . Further recommendations to follow. Thank you for the consult. <Roseline Odonnell - Last Filed: 10/17/17 20:09>
--- NOTE | 2017-10-17 09:43 | P.HP ---
History of Present Illness Primary Care Physician: Bimal Cottrell Chief Complaint: Abdominal pain History of Present Illness: Mr. Guillen is a pleasant 87 year old male with a history of choledocholithiasis, cholangitis with recent ERCP who presents to the ED on 10/17 due to abdominal pain that started after dinner last night around 9PM on . His pain was initially in the epigastric area but later became more diffuse abdominal pain. CT abd/pelvis shows evidence of pancreatitis and lipase elevated to 9833. Patient denies any chest pain, shortness of breath, fever, chills. No changes in bowel or bladder habits. - Diagnosis (1) Pancreatitis Inpatient Certification: I certify that the inpatient services were ordered in accordance with Medicare regulations governing the order. This includes certification that hospital inpatient services are reasonable and necessary and in the case of services not specified as inpatient-only under 42 CFR 419.22(n), that they are appropriately provided as inpatient services in accordance to with the 2-midnight benchmark under 43 CFR 412.3(e) Estimated Total Length of Stay (Days): 2 Plans for Post Hospital Care: Not yet determined [facility] - History History Provided By: Patient, Significant Other - Medical History Medical History: Medical History (Last Updated 10/17/17 @ 03:52 by Liliya Petty RN) History of biliary stent insertion GERD (gastroesophageal reflux disease) Hip fracture, right Pacemaker - Surgical History Surgical History: Surgical History (Last Updated 10/17/17 @ 03:52 by Liliya Petty RN) Cornea replaced by transplant H/O hernia repair History of knee replacement Hx of cholecystectomy - Family History Family History: Family History (Last Updated 10/17/17 @ 09:33 by Amadeo Prado DO) Father Family history of acute myocardial infarction Brother Family history of acute myocardial infarction - Tobacco History Second Hand Smoke Exposure: No Tobacco Use In Past 30 Days: No Smoking Status: Former smoker Tobacco Type: Cigarettes - Alcohol History How Often Do You Have a Drink Containing Alcohol: Never - Substance Use History Substance History: No History of Abuse - Travel History Recent Travel in the [place] Within the Last 8 Weeks: No Recent Travel Out of the Country Within the Last 8 Weeks: No - Immunization History Tetanus Immunization: <5 Years Hx Influenza Vaccine This Season: Yes Medications and Allergies Active Medications: Active Medications Sodium Chloride (Ns Inj) 1,000 mls @ 125 mls/hr IV.CONT .[facility]H [facility] Stop: 10/17/17 11:59 Last Infusion: 10/17/17 07:24 Dose: 250 mls/hr Sodium Chloride (Ns Inj) 1,000 mls @ 250 mls/hr IV.CONT .Q4H [facility] Last Admin: 10/17/17 06:52 Dose: Not Given Piperacillin/Tazobactam/Dextrose (Zosyn 4.5 Gm Premix) 4.5 gm in 100 mls @ 200 mls/hr IV.SIG Q8H [facility] Morphine Sulfate (Morphine Inj) 5 mg IV.PUSH Q3H PRN PRN Reason: pain 6-10 Ondansetron HCl (Zofran Inj) 4 mg IV.PUSH Q6H PRN PRN Reason: NAUSEA OR VOMITING Sodium Chloride (Ns Flush) 2 ml IV.FLUSH PRN PRN PRN Reason: FLUSH AFTER USING IV ACCESS Sodium Chloride (Ns Flush) 2 ml IV.FLUSH BID [facility] Last Admin: 10/17/17 09:09 Dose: Not Given Sodium Chloride (Ns Flush) 2 ml IV.FLUSH PRN PRN PRN Reason: FLUSH AFTER USING IV ACCESS Allergies Allergy/AdvReac Type Severity Reaction Status Date / Time aspirin Allergy Severe Hives Verified 10/17/17 03:39 oxaprozin Allergy Severe BRUISES Verified 10/17/17 03:39 Home Medications Medication Instructions Recorded Confirmed Type hydroxyzine HCl See Label Instructions .ROUTE 10/10/17 10/17/17 History .COMPLEX omeprazole magnesium [Prilosec OTC] 20 mg PO DAILY 10/10/17 10/17/17 History Exam Vital signs: Vital Signs 10/17/17 03:36 10/17/17 03:39 10/17/17 04:41 Temperature 97.6 F Pulse Rate 71 66 Respiratory Rate 20 16 Blood Pressure 148/69 H 148/71 H Pulse Oximetry 95 95 94 L 10/17/17 05:30 10/17/17 07:19 Temperature 98.1 F Pulse Rate 70 69 Respiratory Rate 16 21 Blood Pressure 159/72 H 148/66 H Pulse Oximetry 95 93 L Intake & Output 10/16/17 10/17/17 10/17/17 18:59 06:59 18:59 Weight 90.718 kg Narrative: GENERAL: This is a well-nourished, well-developed patient, in no apparent distress. Somewhat hard of hearing SKIN: No rashes, ecchymoses or lesions. Warm and dry. HEAD: Atraumatic. Normocephalic. No temporal or scalp tenderness. EYES: Pupils equal round and reactive. No injection or drainage. ENT: Nose without bleeding, purulent drainage or septal hematoma. Airway patent. NECK: Trachea midline. No lymphadenopathy. Supple, nontender, no meningeal signs. CARDIOVASCULAR: Regular rate and rhythm without murmurs, gallops, or rubs. No JVD. RESPIRATORY: Clear to auscultation. Breath sounds equal bilaterally. No wheezes , rales, or rhonchi. GASTROINTESTINAL: Abdomen soft, diffusely tender to palpation, nondistended. No guarding. MUSCULOSKELETAL: Extremities without clubbing, cyanosis, or edema. NEUROLOGICAL: Awake and alert. Cranial nerves II through XII intact. No focal neurological deficits. Normal speech. Results - Labs CBC & Chem 7: 10/17/17 04:22 10/17/17 04:22 Labs: Laboratory Results - last 24 hr 10/17/17 10/17/17 10/17/17 04:22 04:22 04:22 WBC 15.2 H RBC 2.80 L Hgb 10.1 L Hct 30.9 L MCV 110.4 H MCH 36.0 H MCHC 32.6 RDW 29.5 H Plt Count 176 D MPV 10.2 Prelim Diff (Auto) Slide review pending Neut % (Auto) 86.7 H Lymph % (Auto) 8.3 L [place] % (Auto) 4.0 Eos % (Auto) 0.0 Baso % (Auto) 1.0 Neut # (Auto) 13.2 H Lymph # (Auto) 1.3 [place] # (Auto) 0.6 Eos # (Auto) 0.0 Baso # (Auto) 0.2 WBC Differential Manual diff final Seg Neuts % (Manual) 74 H Band Neuts % (Manual) 13 H Lymphocytes % (Manual) 10 Monocytes % (Manual) 3 Abs Neuts (Manual) 13.2 H Differential Comment . Platelet Estimate Normal Platelet Morphology Normal Basophilic Stippling Faint H Pappenheimer Bodies Present H Ovalocytes 1+ H Acanthocytes (Spur) Occ H Keratocytes Occ H Sodium 139 Potassium 4.0 Chloride 106 Carbon Dioxide 20.6 L Anion Gap 12 BUN 18 Creatinine 0.93 Random Glucose 202 H Lactic Acid 1.3 Calcium 8.3 L Total Bilirubin 1.5 H AST 67 H ALT 112 H Alkaline Phosphatase 124 H Troponin I Less than 0.02 L Total Protein 7.3 D Albumin 3.8 Lipase 9833 H - Imaging Impressions Abdomen X-Ray 10/17/17 03:49 CONCLUSION: 1. No significant free intraperitoneal air. Abdomen/Pelvis CT 10/17/17 03:49 CONCLUSION: 1. Moderate peripancreatic inflammatory stranding consistent with pancreatitis. Pancreas enhances uniformly and there is no peripancreatic fluid collection at this time. 2. Interval placement of CBD stent with persistent intra and extra hepatic ductal dilatation. 3. Focal adynamic ileus in the proximal jejunum secondary to the peripancreatic inflammatory changes. 4. Stable additional ancillary findings, as above. Caprini VTE Risk Assessment Caprini VTE Risk Assessment: Moderate/High Risk (score >= 2) Caprini Risk Assessment Model: Point Value = 1 Point Value = 2 Point Value = 3 Point Value = 5 Age 41-60 Minor surgery BMI > 25 kg/m2 Swollen legs Varicose veins or History of unexplained or recurrent spontaneous Oral contraceptives or hormone replacement Sepsis (< 1 month) Serious lung disease, including pneumonia (< 1 month) Abnormal pulmonary function Acute myocardial infarction Congestive heart failure (< 1 month) History of inflammatory bowel disease Medical patient at bed rest Age 61-74 Arthroscopic surgery Major open surgery (> 45 min) Laparoscopic surgery (> 45 min) Malignancy Confined to bed (> 72 hours) Immobilizing plaster cast Central venous access Age >= 75 History of VTE Family history of VTE Factor V Leiden Prothrombin [id number] Lupus anticoagulant Anticardiolipin antibodies Elevated serum homocysteine Heparin-induced thrombocytopenia Other congenital or acquired thrombophilia Stroke (< 1 month) Elective arthroplasty Hip, pelvis, or leg fracture Acute spinal cord injury (< 1 month) Prophylaxis Regimen: Total Risk Factor Score Risk Level Prophylaxis Regimen 0-1 Low Early ambulation 2 Moderate Order ONE of the following: *Sequential Compression Device (SCD) *Heparin 5000 units SQ BID 3-4 Higher Order ONE of the following medications: *Heparin 5000 units SQ TID *Enoxaparin/Lovenox 40 mg SQ daily (WT < 150 kg, CrCl > 30 mL/min) *Enoxaparin/Lovenox 30 mg SQ daily (WT < 150 kg, CrCl > 10-29 mL/min) *Enoxaparin/Lovenox 30 mg SQ BID (WT < 150 kg, CrCl > 30 mL/min) AND/OR *Sequential Compression Device (SCD) 5 or more Highest Order ONE of the following medications: *Heparin 5000 units SQ TID (Preferred with Epidurals) *Enoxaparin/Lovenox 40 mg SQ daily (WT < 150 kg, CrCl > 30 mL/min) *Enoxaparin/Lovenox 30 mg SQ daily (WT < 150 kg, CrCl > 10-29 mL/min) *Enoxaparin/Lovenox 30 mg SQ BID (WT < 150 kg, CrCl > 30 mL/min) AND *Sequential Compression Device (SCD) Assessment and Plan - Assessment (1) Pancreatitis Code(s): K85.90 - Acute pancreatitis without necrosis or infection, unspecified Status: Acute - Plan Mr. Guillen is a pleasant 87 year old male with a history of choledocholithiasis, cholangitis status post recent ERCP who presents today due to epigastric pain which became later on diffuse abdominal pain that started after dinner on 10/16/2017. CT abdomen pelvis as well as lipase level indicate acute pancreatitis. Acute pancreatitis likely due to complication of ERCP -Continue IV normal saline at 250 cc/h -Morphine 5 mg every 3 hours as needed -Currently n.p.o. GI consulted. -GI started patient on Zosyn. -MRCP cannot be done due to patient's pacemaker. Choledocholithiasis Cholangitis -Status post ERCP earlier this month. Full code. Heparin SQ.
[2017-10-17 12:58] LABS: Baso # (Auto) 0.1 th/mm3 (0.0-0.2); Baso % (Auto) 0.4 % (0.0-2.0); Hematocrit 32.5 % (39.0-51.0); Hemoglobin 10.5 gm/dL (13.0-17.0); Lymph # (Auto) 1.4 th/mm3 (1.0-4.8); Mean Corpuscular HGB Conc 32.1 % (32.0-36.0); Mean Corpuscular Hemoglobin 35.5 pg (27.0-34.0); Mean Corpuscular Volume 110.5 fL (80.0-100.0); Mean Platelet Volume 9.3 fL (7.0-11.0); Mono # (Auto) 0.8 th/mm3 (0.0-0.9); Mono % (Auto) 4.6 % (0.0-8.0); Neut # (Auto) 15.5 th/mm3 (1.8-7.7); Platelet Count 179 th/mm3 (150-450); Red Blood Count 2.94 mil/mm3 (4.50-5.90); Red Cell Distribution Width 30.2 % (11.6-17.2); White Blood Count 17.9 th/mm3 (4.0-11.0)
[2017-10-17 13:25] LABS: Calcium 7.7 mg/dL (8.5-10.1); Carbon Dioxide 24.1 meq/L (21.0-32.0); Potassium 4.1 meq/L (3.5-5.1)
[2017-10-17 13:31] LABS: Dimorphic RBC Present
[2017-10-17 13:34] LABS: Lymphocytes 1 % (9-44); Monocytes 2 % (0-8); Myelocytes 1 % (0-0)
--- NOTE | 2017-10-17 13:34 | ECG ---
Date Performed: 10/17/2017 Time Performed: 04:05:31 PTAGE: 87 years EKG: Sinus rhythm WITH FIRST DEGREE AV BLOCK RIGHT BUNDLE BRANCH BLOCK ABNORMAL ECG Since the PREVIOUS TRACING , no significant change noted PREVIOUS TRACIN10/10/2017 06.01 DOCTOR: Erik Polk Interpretating Date/Time 10/17/2017 13:24:27
[2017-10-17 13:35] LABS: Ovalocytes 1+
[2017-10-17 13:36] LABS: Platelet Estimate Normal (Normal); Platelet Morphology Normal (Normal)
[2017-10-17 14:56] LABS: Amorphous Sediment,Urine Rare /hpf; Bacteria,Urine Occasional /hpf; Bilirubin,Urine Negative (Negative); Clarity,Urine Clear (Clear); Color,Urine Yellow (Yellw/Straw); Glucose,Urine (UA) 150 mg/dL (Negative); Leukocyte Esterase,Urine Negative (Negative); Mucus,Urine Few /lpf (Occasional); Nitrite,Urine Negative (Negative)
[2017-10-17] MEDS: Morphine Sulfate Inj 8 MG/ML Vial IV.PUSH PRN ×2 (15:16→21:33)
[2017-10-17] MEDS: Piperacil/Tazo 4.5 GM Premix 4.5 GM/100 ML BAG IV.SIG SCH ×2 (15:17→22:02)
[2017-10-17] MEDS: Heparin - SQ 10,000 UNITS/ML Vial SQ SCH (21:33)
[2017-10-18] MEDS: Sod Chloride 0.9% Inj 1,000 ML IV.CONT SCH ×6 (00:48→18:37)
[2017-10-18] MEDS: Morphine Sulfate Inj 8 MG/ML Vial IV.PUSH PRN (01:29)
[2017-10-18] MEDS: Piperacil/Tazo 4.5 GM Premix 4.5 GM/100 ML BAG IV.SIG SCH ×3 (05:00→23:35)
[2017-10-18] MEDS: Heparin - SQ 10,000 UNITS/ML Vial SQ SCH ×2 (09:03→22:09)
[2017-10-18] MEDS ORDERED: Lidocaine PF 1% Inj 5 ML Syringe INFILTRATN ONE (12:00)
[2017-10-18] MEDS ORDERED: Esmolol Bolus Inj 100 MG/10 ML Vial IV.PUSH ONE (12:00)
--- NOTE | 2017-10-18 12:38 | GIPROC ---
[facility] [address] [facility]. [facility], [address] ERCP PROCEDURE REPORT EXAM DATE: 10/18/2017 PATIENT NAME: Bulmaro Guillen MR #: [id number] BIRTHDATE: 1930 ATTENDING: Roseline Odonnell MD ORDER #: [id number] EGG BREAKING MACHINE OPERATOR: Roge Villaseñor and Liana Holguin STATUS: inpatient INDICATIONS: The patient is a 87 yr old male here for an ERCP due to established ascending cholangitis PROCEDURE PERFORMED: ERCP with sphincterotomy/papillotomy ERCP with removal of calculus/calculi MEDICATIONS: None and Per Anesthesia. CONSENT: The patient understands the risks and benefits of the procedure and understands that these risks include, but are not limited to: sedation, allergic reaction, infection, perforation and/or bleeding. Alternative means of evaluation and treatment include, among others: physical exam, x-rays, and/or surgical intervention. The patient elects to proceed with this endoscopic procedure. medical equipment was checked for proper function. Hand hygiene and appropriate measures for infection prevention was taken. After the risks, benefits and alternatives of the procedure were thoroughly explained, Informed was verified, confirmed and timeout was successfully executed by the treatment team. With the patient in left semi-prone position, medications were administered intravenously.The Pentax [id number] was passed from the mouth into the esophagus and further advanced from the esophagus into the stomach. From stomach scope was directed to the second portion of the duodenum. Major papilla was aligned with the duodenoscope. The scope position was confirmed fluoroscopically. Rest of the findings/therapeutics are given below. The scope was then completely withdrawn from the patient and the procedure completed. The pulse, BP, and O2 saturation were monitored and documented by the physician and the nursing staff throughout the entire procedure. The patient was cared for as planned according to standard protocol. The patient was then discharged to recovery in stable condition and with appropriate post procedure care. The ampulla was located the second portion of the duodenum. A previously placed stent was seen extending from the orifice. The old stent was removed using a snare. There was a dilation of the common hepatic duct and CBD. Three filling defects were seen in the distal common bile duct. With guidewire in the bile duct, a large biliary sphincterotomy was performed using the sphincterotome. Using a stone extraction balloon the bile duct was swept several times. Multiple stones were removed from the bile duct successfully. Using a stone extraction balloon the bile duct was swept several times. Multiple stone fragments were removed from the bile duct successfully. ADVERSE EVENT: There were no complications. IMPRESSIONS: 1. A previously placed ampulla stent was seen extending from the orifice, removed by snare. 2. 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 3. Sphincterotomy done. 4. Ductal sweep with balloon and irrigation removing multiple variable size stones, sludge and debris. 5. Normal inclusion cholangiogram afterward RECOMMENDATIONS: 1. Antibiotics 2. Liver enzymes REPEAT EXAM: NONE Roseline Odonnell MD eSigned: Roseline Odonnell MD 10/18/2017 12:38 PM cc: PATIENT NAME: Bulmaro Guillen MR#: [id number]
--- NOTE | 2017-10-18 12:57 | P.PNIM ---
Subjective Interval history: Mr. Guillen is a pleasant 87 year old male with a history of choledocholithiasis, cholangitis with recent ERCP who presents to the ED on 10/17 due to abdominal pain that started after dinner last night around 9PM on . His pain was initially in the epigastric area but later became more diffuse abdominal pain. CT abd/pelvis shows evidence of pancreatitis and lipase elevated to 9833. Patient denies any chest pain, shortness of breath, fever, chills. No changes in bowel or bladder habits. 10-18 HAD ERCP WITH sphincterotomy and stent removal and stone and sludge removal Discussed with RN and patient and family at bedside We will continue to monitor lipase and his pancreatitis and pain control A.m. labs Continue antibiotics Physical Exam Vital signs: Vital Signs 10/17/17 13:00 10/17/17 17:20 10/17/17 17:40 Temperature 97.6 F 97.9 F Pulse Rate 75 82 81 Respiratory Rate 22 22 18 Blood Pressure 147/71 H 148/65 H 151/65 H Pulse Oximetry 96 95 95 10/17/17 20:00 10/18/17 00:00 10/18/17 04:00 Temperature 98.2 F 98.3 F 97.4 F L Pulse Rate 86 87 86 Respiratory Rate 16 16 20 Blood Pressure 130/73 135/77 125/75 Pulse Oximetry 93 L 93 L 93 L 10/18/17 04:07 10/18/17 07:00 10/18/17 07:59 Temperature 98.9 F Pulse Rate 88 95 H 76 Respiratory Rate 18 Blood Pressure 131/77 Pulse Oximetry 95 10/18/17 12:07 10/18/17 12:28 10/18/17 12:38 Temperature 98.4 F 98.6 F Pulse Rate 102 H 98 H 100 H Respiratory Rate 20 18 Blood Pressure 117/62 119/74 Pulse Oximetry 94 L 91 L Intake & Output 10/17/17 10/18/17 10/18/17 18:59 06:59 18:59 Intake Total 2100 / 2100 3300 / 3300 800 / 800 Output Total 500 / 500 Balance 2099 / 2100 2800 / 2800 800 / 800 Weight 95.9 kg Intake: IV 2100 / 2100 3300 / 3300 800 / 800 NS Inj 1,000 ML @ 250 mls/hr IV 2000 / 2000 3000 / 3000 800 / 800 .CONT .Q4H [facility] Rx#:[id number] Zosyn 4.5 GM Premix 4.5 gm In 100 / 100 200 / 200 100 ml @ 200 mls/hr IV.SIG Q8HR [facility] Rx#:[id number] Output: Urine Amount (Catheter) 500 / 500 Indwelling Urethral Catheter 500 / 500 Other: Date of Last Bowel Movement 10/16/17 10/16/17 10/16/17 Narrative: GENERAL: Lethargic post procedure but no arousable very hard of hearing SKIN: Warm and dry. HEAD: Atraumatic. Normocephalic. EYES: Pupils equal and round. Some scleral icterus. No injection or drainage. ENT: No nasal bleeding or discharge. Mucous membranes pink and moist. NECK: Trachea midline. No JVD. CARDIOVASCULAR: Regular rate and rhythm. S1-S2 no S3 or S4 RESPIRATORY: No accessory muscle use. Clear to auscultation. Breath sounds equal bilaterally. GASTROINTESTINAL: Abdomen soft, non-tender, nondistended. Hepatic and splenic margins not palpable. MUSCULOSKELETAL: Extremities without clubbing, cyanosis, or edema. No obvious deformities. NEUROLOGICAL: Awake and alert. No obvious cranial nerve deficits. Motor grossly within normal limits. Five out of 5 muscle strength in the arms and legs. Normal speech. PSYCHIATRIC: INAppropriate mood and affect; insight and judgment ABnormal.. Patient is quite lethargic post procedure - Urinary Catheter Management Indwelling Urethral Catheter Cath placed during this visit: yes Reason for continuing: Chronic Urinary Retention Insertion date: 10/17/17 Insertion time: 17:30 Results - Labs CBC & Chem 7: 10/17/17 12:30 10/17/17 12:30 Laboratory Results - last 24 hr 10/17/17 10/17/17 10/17/17 12:30 12:30 13:37 WBC 17.9 H RBC 2.94 L Hgb 10.5 L Hct 32.5 L MCV 110.5 H MCH 35.5 H MCHC 32.1 RDW 30.2 H Plt Count 179 MPV 9.3 Prelim Diff (Auto) Slide review pending Neut % (Auto) 87.0 H Lymph % (Auto) 8.0 L [place] % (Auto) 4.6 Eos % (Auto) 0.0 Baso % (Auto) 0.4 Neut # (Auto) 15.5 H Lymph # (Auto) 1.4 [place] # (Auto) 0.8 Eos # (Auto) 0.0 Baso # (Auto) 0.1 WBC Differential Manual diff final Seg Neuts % (Manual) 68 Band Neuts % (Manual) 28 H Lymphocytes % (Manual) 1 L Monocytes % (Manual) 2 Myelocytes % (Man) 1 H Abs Neuts (Manual) 17.4 H Differential Comment . Platelet Estimate Normal Platelet Morphology Normal Dimorphic RBCs Present H Ovalocytes 1+ H Sodium 141 Potassium 4.1 Chloride 109 H Carbon Dioxide 24.1 Anion Gap 8 BUN 15 Creatinine 0.96 Estimated GFR 74 L Random Glucose 148 H Calcium 7.7 L Lipase Urine Color Yellow Urine Clarity Clear Urine pH 5.0 Ur Specific [place] Greater than 1.060 H Urine Protein Negative Urine Glucose (UA) 150 H Urine Ketones Negative Urine Occult Blood Negative Urine Nitrate Negative Urine Bilirubin Negative Urine Urobilinogen Less than 2 Ur Leukocyte Esterase Negative Urine RBC 1 Urine WBC 1 Amorphous Sediment Rare H Urine Bacteria Occasional H Urine Mucus Few H Micro UA Comment Cath-culture ind Urine Culture Comments Cath-cult indicated 10/18/17 04:51 WBC RBC Hgb Hct MCV MCH MCHC RDW Plt Count MPV Prelim Diff (Auto) Neut % (Auto) Lymph % (Auto) [place] % (Auto) Eos % (Auto) Baso % (Auto) Neut # (Auto) Lymph # (Auto) [place] # (Auto) Eos # (Auto) Baso # (Auto) WBC Differential Seg Neuts % (Manual) Band Neuts % (Manual) Lymphocytes % (Manual) Monocytes % (Manual) Myelocytes % (Man) Abs Neuts (Manual) Differential Comment Platelet Estimate Platelet Morphology Dimorphic RBCs Ovalocytes Sodium Potassium Chloride Carbon Dioxide Anion Gap BUN Creatinine Estimated GFR Random Glucose Calcium Lipase 2160 H Urine Color Urine Clarity Urine pH Ur Specific [place] Urine Protein Urine Glucose (UA) Urine Ketones Urine Occult Blood Urine Nitrate Urine Bilirubin Urine Urobilinogen Ur Leukocyte Esterase Urine RBC Urine WBC Amorphous Sediment Urine Bacteria Urine Mucus Micro UA Comment Urine Culture Comments Microbiology 10/17/17 05:50 Blood - Peripheral Aerobic Blood Culture - Preliminary No growth in 1 day 10/17/17 05:50 Blood - Peripheral Anaerobic Blood Culture - Preliminary No growth in 1 day 10/17/17 05:55 Blood - Peripheral Aerobic Blood Culture - Preliminary No growth in 1 day 10/17/17 05:55 Blood - Peripheral Anaerobic Blood Culture - Preliminary No growth in 1 day - Imaging ITS Impressions Abdomen X-Ray 10/17/17 03:49 CONCLUSION: 1. No significant free intraperitoneal air. Abdomen/Pelvis CT 10/17/17 03:49 CONCLUSION: 1. Moderate peripancreatic inflammatory stranding consistent with pancreatitis. Pancreas enhances uniformly and there is no peripancreatic fluid collection at this time. 2. Interval placement of CBD stent with persistent intra and extra hepatic ductal dilatation. 3. Focal adynamic ileus in the proximal jejunum secondary to the peripancreatic inflammatory changes. 4. Stable additional ancillary findings, as above. - Procedures ERCP PROCEDURE REPORT EXAM DATE: 10/18/2017 PATIENT NAME: Bulmaro Guillen MR #: [id number] BIRTHDATE: 1930 ATTENDING: Roseline Odonnell MD ORDER #: [id number] MECHANICAL DESIGN TECHNICIAN: Roge Villaseñor and Liana Holguin STATUS: inpatient INDICATIONS: The patient is a 87 yr old male here for an ERCP due to established ascending cholangitis PROCEDURE PERFORMED: ERCP with sphincterotomy/papillotomy ERCP with removal of calculus/calculi MEDICATIONS: None and Per Anesthesia. CONSENT: The patient understands the risks and benefits of the procedure and understands that these risks include, but are not limited to: sedation, allergic reaction, infection, perforation and/or bleeding. Alternative means of evaluation and treatment include, among others: physical exam, x-rays, and/or surgical intervention. The patient elects to proceed with this endoscopic procedure. medical equipment was checked for proper function. Hand hygiene and appropriate measures for infection prevention was taken. After the risks, benefits and alternatives of the procedure were thoroughly explained, Informed was verified, confirmed and timeout was successfully executed by the treatment team. With the patient in left semi-prone position, medications were administered intravenously.The [employer]ax [id number] was passed from the mouth into the esophagus and further advanced from the esophagus into the stomach. From stomach scope was directed to the second portion of the duodenum. Major papilla was aligned with the duodenoscope. The scope position was confirmed fluoroscopically. Rest of the findings/therapeutics are given below. The scope was then completely withdrawn from the patient and the procedure completed. The pulse, BP, and O2 saturation were monitored and documented by the physician and the nursing staff throughout the entire procedure. The patient was cared for as planned according to standard protocol. The patient was then discharged to recovery in stable condition and with appropriate post procedure care. The ampulla was located the second portion of the duodenum. A previously placed stent was seen extending from the orifice. The old stent was removed using a snare. There was a dilation of the common hepatic duct and CBD. Three filling defects were seen in the distal common bile duct. With guidewire in the bile duct, a large biliary sphincterotomy was performed using the sphincterotome. Using a stone extraction balloon the bile duct was swept several times. Multiple stones were removed from the bile duct successfully. Using a stone extraction balloon the bile duct was swept several times. Multiple stone fragments were removed from the bile duct successfully. ADVERSE EVENT: There were no complications. IMPRESSIONS: 1. A previously placed ampulla stent was seen extending from the orifice, removed by snare. 2. 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 3. Sphincterotomy done. 4. Ductal sweep with balloon and irrigation removing multiple variable size stones, sludge and debris. 5. Normal inclusion cholangiogram afterward RECOMMENDATIONS: 1. Antibiotics 2. Liver enzymes REPEAT EXAM: NONE Assessment and Plan - Assessment (1) Pancreatitis Code(s): K85.90 - Acute pancreatitis without necrosis or infection, unspecified Status: Acute - Plan Mr. Guillen is a pleasant 87 year old male with a history of choledocholithiasis, cholangitis status post recent ERCP who presents today due to epigastric pain which became later on diffuse abdominal pain that started after dinner on 10/16/2017. CT abdomen pelvis as well as lipase level indicate acute pancreatitis. Acute pancreatitis likely due to complication of ERCP -Continue IV normal saline at 250 cc/h -Morphine 5 mg every 3 hours as needed -Currently n.p.o. GI consulted. -GI started patient on Zosyn. -MRCP cannot be done due to patient's pacemaker. -Had ERCP and stent removal with sphincterotomy and stone removal - -Continue on Zosyn -A.m. labs Pain control Choledocholithiasis Cholangitis -Status post ERCP earlier this month. Full code. Heparin SQ.
[2017-10-18] MEDS ORDERED: Naloxone Inj 0.4 MG/ML Vial IV.PUSH PRN (13:01)
[2017-10-18] MEDS ORDERED: Morphine Sulfate Inj 2 MG/ML Vial IV.PUSH PRN (13:01)
[2017-10-18] MEDS ORDERED: Acetaminophen 325 MG Tablet PO PRN ×2 (13:01→14:30)
[2017-10-18] MEDS ORDERED: Morphine Inj 4 MG/ML Vial IV.PUSH PRN (13:01)
[2017-10-18] MEDS ORDERED: Bisacodyl 10 MG Supp RECTAL PRN (13:02)
--- NOTE | 2017-10-18 13:19 | FL ---
EXAM DATE: 10/18/2017 12:46 PM EDT AGE/SEX: 87 years / Male INDICATIONS: Obstruction. CLINICAL DATA: This is the patient's initial encounter. Patient reports that signs and symptoms have been present for 1 day and indicates a pain score of Nonresponsive. MEDICAL/SURGICAL HISTORY: Gastroesophageal reflux disease. Gallstones. Cholecystectomy. COMPARISON: [facility] – [place], [place] ABDOMEN & PELVIS W CONTRAST, 10/17/2017. . FINDINGS: An ERCP was performed by the ordering physician. The images demonstrate multiple filling defects in the distal common bile duct which is distended. CONCLUSION: Multiple filling defects are identified in the common bile duct which is distended. Electronically signed by: Raymundo Liu MD 10/18/2017 1:18 PM EDT
[2017-10-18] MEDS: Pantoprazole Sodium 20 MG DR Tablet PO SCH (13:40)
[2017-10-18 15:37] LABS: Lipase 1195 U/L (73-393)
[2017-10-18 15:50] LABS: Amylase 409 U/L (25-115)
[2017-10-18] MEDS ORDERED: Vancomycin Inj 1,000 MG in Sodium Chlor 0.9% Inj 250 ML IV.SIG ONE (16:52)
[2017-10-18] MEDS ORDERED: Vancomycin Consult Pharmacy 1 EACH OTHER SCH (17:00)
--- NOTE | 2017-10-18 17:42 | XR ---
EXAM DATE: 10/18/2017 5:37 PM EDT AGE/SEX: 87 years / Male INDICATIONS: Shortness of breath. CLINICAL DATA: This is the patient's subsequent encounter. Patient reports that signs and symptoms h ave been present for 1 day and indicates a pain score of 0/10. MEDICAL/SURGICAL HISTORY: . Gastroesophageal reflux disease. Gallstones. Cholecystectomy. [place] horn. COMPARISON: [facility], CHEST 1V SINGLE AP, 10/10/2017. . FINDINGS: Pacemaker left chest. Moderate bibasilar parenchymal changes evident. Moderate compensated cardiomegaly There is no significant failure. Degenerative changes both AC joints. CONCLUSION: Pacemaker with moderate compensated cardiomegaly. I don't see significant failure. Electronically signed by: Rocky Morales MD 10/18/2017 5:41 PM EDT
[2017-10-18] MEDS ORDERED: Vancomycin Inj 1,500 MG in Sodium Chlor 0.9% Inj 500 ML IV.SIG ONE (18:00)
[2017-10-18 19:35] LABS: Baso # (Auto) 0.1 th/mm3 (0.0-0.2); Baso % (Auto) 0.3 % (0.0-2.0); Hematocrit 33.5 % (39.0-51.0); Hemoglobin 10.5 gm/dL (13.0-17.0); Lymph # (Auto) 1.5 th/mm3 (1.0-4.8); Lymph % (Auto) 6.5 % (9.0-44.0); Mean Corpuscular HGB Conc 31.2 % (32.0-36.0); Mean Corpuscular Hemoglobin 34.8 pg (27.0-34.0); Mean Corpuscular Volume 111.5 fL (80.0-100.0); Mean Platelet Volume 8.5 fL (7.0-11.0); Mono % (Auto) 4.4 % (0.0-8.0); Neut % (Auto) 88.8 % (16.0-70.0); Platelet Count 171 th/mm3 (150-450); Red Cell Distribution Width 29.5 % (11.6-17.2); White Blood Count 23.7 th/mm3 (4.0-11.0)
[2017-10-18 19:43] LABS: Activated Partial Thrombo Time 34.4 sec (24.3-30.1); INR 1.2 Ratio
[2017-10-18 20:23] LABS: Lymphocytes 2 % (9-44); Metamyelocytes 1 % (0-1); Monocytes 2 % (0-8)
[2017-10-18 20:24] LABS: Dimorphic RBC Present; Ovalocytes 1+; Platelet Estimate Normal (Normal); Platelet Morphology Normal (Normal); Tear Drop Cells 1+
[2017-10-18] MEDS: Senna/Docusate Sodium 8.6/50 MG Tablet PO SCH (22:09)
[2017-10-19] MEDS: Piperacil/Tazo 4.5 GM Premix 4.5 GM/100 ML BAG IV.SIG SCH (05:34)
[2017-10-19] MEDS ORDERED: Vancomycin Inj 1,000 MG in Sodium Chlor 0.9% Inj 250 ML IV.SIG SCH (06:00)
[2017-10-19 06:13] LABS: Baso # (Auto) 0.1 th/mm3 (0.0-0.2); Baso % (Auto) 0.4 % (0.0-2.0); Hematocrit 33.8 % (39.0-51.0); Hemoglobin 10.8 gm/dL (13.0-17.0); Lymph # (Auto) 0.7 th/mm3 (1.0-4.8); Lymph % (Auto) 2.8 % (9.0-44.0); Mean Corpuscular HGB Conc 31.9 % (32.0-36.0); Mean Corpuscular Hemoglobin 35.7 pg (27.0-34.0); Mean Corpuscular Volume 111.9 fL (80.0-100.0); Mono # (Auto) 0.9 th/mm3 (0.0-0.9); Mono % (Auto) 3.6 % (0.0-8.0); Neut # (Auto) 23.2 th/mm3 (1.8-7.7); Neut % (Auto) 93.2 % (16.0-70.0); Platelet Count 201 th/mm3 (150-450); Red Blood Count 3.02 mil/mm3 (4.50-5.90); Red Cell Distribution Width 30.2 % (11.6-17.2); White Blood Count 24.9 th/mm3 (4.0-11.0)
[2017-10-19 06:26] LABS: Alanine Aminotransferase 60 U/L (12-78); Albumin 2.6 g/dL (3.4-5.0); Anion Gap 13 meq/L (5-15); Aspartate Aminotransferase 34 U/L (15-37); Blood Urea Nitrogen 31 mg/dL (7-18); Calcium 7.7 mg/dL (8.5-10.1); Carbon Dioxide 16.8 meq/L (21.0-32.0); Chloride 111 meq/L (98-107); Glomerular Filtration Rate 49 mL/min (>89); Glucose,Random 209 mg/dL (74-106); Magnesium 2.1 mg/dL (1.5-2.5); Sodium 141 meq/L (136-145)
[2017-10-19 07:19] LABS: Alkaline Phosphatase 80 U/L (45-117); Free T4 (Free Thyroxine) 1.17 ng/dL (0.76-1.46); Phosphorus 2.2 mg/dL (2.5-4.9); Thyroid Stimulating Hormone 0.327 uIU/mL (0.358-3.740); Total Protein 6.8 g/dL (6.4-8.2)
[2017-10-19] MEDS: Heparin - SQ 10,000 UNITS/ML Vial SQ SCH ×2 (08:49→20:46)
[2017-10-19] MEDS: Pantoprazole Sodium 20 MG DR Tablet PO SCH (08:50)
[2017-10-19 08:57] LABS: Dohle Bodies Present; Lymphocytes 3 % (9-44); Monocytes 1 % (0-8); Tallied Nucleated RBC 1 (0-0)
[2017-10-19 08:58] LABS: Acanthocytes Occ
[2017-10-19 08:59] LABS: Platelet Estimate Normal (Normal); Platelet Morphology Normal (Normal); Tear Drop Cells 1+
[2017-10-19 09:02] LABS: Ovalocytes 1+
--- NOTE | 2017-10-19 11:12 | XR ---
EXAM DATE: 10/19/2017 11:08 AM EDT AGE/SEX: 87 years / Male INDICATIONS: Distention. CLINICAL DATA: This is the patient's subsequent encounter. Patient reports that signs and symptoms h ave been present for 3 days and indicates a pain score of 10/10. MEDICAL/SURGICAL HISTORY: . Gastroesophageal reflux disease. . Pacemaker. Cholecystectomy. He rnia repair, Biliary stent. COMPARISON: [facility], XR abdomen upright Only 1V, 10/17/2017. . FINDINGS: The abdominal bowel gas pattern is normal. No abnormal masses, calcifications, or organomegaly is s een. Osseous structures demonstrate degenerative changes within the lower lumbar spine and postsurgic al changes of the right hip. CONCLUSION: No radiographic evidence of ileus or bowel obstruction. No evidence of free air. Electronically signed by: Yojana Huerta MD 10/19/2017 11:11 AM EDT
[2017-10-19 11:35] LABS: Hemoglobin A1c 5.5 % (4.3-6.0)
--- NOTE | 2017-10-19 11:39 | P.PNGI ---
Subjective Interval history: Pt complaining of feeling uncomfortable today. States his abdomen feels very distended and that he has been burping a lot. Denies nausea and vomiting. (+) BM today <Alley Ruiz - Last Filed: 10/19/17 11:35> Physical Exam Vital signs: Vital Signs 10/18/17 12:07 10/18/17 12:28 10/18/17 12:38 Temperature 98.4 F 98.6 F Pulse Rate 102 H 98 H 100 H Respiratory Rate 20 18 Blood Pressure 117/62 119/74 Pulse Oximetry 94 L 91 L 10/18/17 14:04 10/18/17 15:00 10/18/17 15:24 Temperature 100.5 F H 100.6 F H Pulse Rate 103 H 100 H 58 L Respiratory Rate 18 20 Blood Pressure 149/87 H 121/84 Pulse Oximetry 94 L 94 L 10/18/17 16:00 10/18/17 20:00 10/18/17 21:00 Temperature 100.5 F H 98.1 F Pulse Rate 101 H 100 H 103 H Respiratory Rate 18 22 Blood Pressure 138/70 132/61 Pulse Oximetry 95 95 10/18/17 22:00 10/18/17 23:00 10/19/17 00:00 Temperature 98.2 F Pulse Rate 101 H 102 H 102 H Respiratory Rate 22 Blood Pressure 147/70 H Pulse Oximetry 95 10/19/17 01:00 10/19/17 02:00 10/19/17 02:51 Temperature Pulse Rate 98 H 104 H 83 Respiratory Rate 28 H Blood Pressure Pulse Oximetry 10/19/17 03:00 10/19/17 04:00 10/19/17 04:42 Temperature 98.2 F Pulse Rate 100 H 102 H 100 H Respiratory Rate 18 Blood Pressure 142/65 H Pulse Oximetry 95 10/19/17 05:00 10/19/17 05:57 10/19/17 06:00 Temperature Pulse Rate 104 H 103 H 106 H Respiratory Rate Blood Pressure Pulse Oximetry 10/19/17 08:00 Temperature 98.3 F Pulse Rate 108 H Respiratory Rate 20 Blood Pressure 131/77 Pulse Oximetry 95 Intake & Output 10/18/17 10/19/17 10/19/17 18:59 06:59 18:59 Intake Total 2200 / 2200 955 / 955 Output Total 300 / 300 600 / 600 Balance 1900 / 1900 355 / 355 Intake: IV 2099 / 2100 475 / 475 NS Inj 1,000 ML @ 250 mls/hr IV 1999 / 1999 375 / 375 .CONT .Q4H [facility] Rx#:[id number] Zosyn 4.5 GM Premix 4.5 gm In 100 / 100 100 / 100 100 ml @ 200 mls/hr IV.SIG Q8HR K[facility]K Rx#:[id number] Oral 100 / 100 480 / 480 Output: Urine Amount (Catheter) 300 / 300 600 / 600 Indwelling Urethral Catheter 300 / 300 600 / 600 Other: Date of Last Bowel Movement 10/16/17 10/19/17 - Urinary Catheter Management Indwelling Urethral Catheter Cath placed during this visit: yes Reason for continuing: Chronic Urinary Retention Insertion date: 10/17/17 Insertion time: 17:30 <Alley Ruiz - Last Filed: 10/19/17 11:35> Vital signs: Vital Signs 10/18/17 21:00 10/18/17 22:00 10/18/17 23:00 Temperature Pulse Rate 103 H 101 H 102 H Respiratory Rate Blood Pressure Pulse Oximetry 10/19/17 00:00 10/19/17 01:00 10/19/17 02:00 Temperature 98.2 F Pulse Rate 102 H 98 H 104 H Respiratory Rate 22 Blood Pressure 147/70 H Pulse Oximetry 95 10/19/17 02:51 10/19/17 03:00 10/19/17 04:00 Temperature Pulse Rate 83 100 H 102 H Respiratory Rate 28 H Blood Pressure Pulse Oximetry 10/19/17 04:42 10/19/17 05:00 10/19/17 05:57 Temperature 98.2 F Pulse Rate 100 H 104 H 103 H Respiratory Rate 18 Blood Pressure 142/65 H Pulse Oximetry 95 10/19/17 06:00 10/19/17 07:00 10/19/17 08:00 Temperature 98.3 F Pulse Rate 106 H 104 H 106 H Respiratory Rate 20 Blood Pressure 131/77 Pulse Oximetry 95 10/19/17 09:00 10/19/17 10:00 10/19/17 11:00 Temperature Pulse Rate 102 H 100 H 106 H Respiratory Rate Blood Pressure Pulse Oximetry 10/19/17 12:00 10/19/17 13:00 10/19/17 14:00 Temperature 98.8 F Pulse Rate 106 H 98 H 100 H Respiratory Rate 18 Blood Pressure 135/69 Pulse Oximetry 94 L 10/19/17 15:00 10/19/17 16:00 10/19/17 17:00 Temperature 97.8 F Pulse Rate 103 H 104 H 105 H Respiratory Rate 16 Blood Pressure 128/61 Pulse Oximetry 10/19/17 17:24 10/19/17 19:00 10/19/17 20:00 Temperature Pulse Rate 105 H 110 H 104 H Respiratory Rate Blood Pressure Pulse Oximetry 97 Intake & Output 10/19/17 10/19/17 10/20/17 06:59 18:59 06:59 Intake Total 955 / 955 290 / 290 Output Total 600 / 600 350 / 350 Balance 355 / 355 -60 / -60 Intake: IV 475 / 475 50 / 50 NS Inj 1,000 ML @ 250 mls/hr IV 375 / 375 .CONT .Q4H [facility] Rx#:[id number] Zosyn 3.375 GM Premix 50 ML @ 50 / 50 100 mls/hr IV.SIG Q6H [facility] Rx#: [id number] Zosyn 4.5 GM Premix 4.5 gm In 100 / 100 100 ml @ 200 mls/hr IV.SIG Q8HR [facility] Rx#:[id number] Oral 480 / 480 240 / 240 Output: Urine Amount (Catheter) 600 / 600 350 / 350 Indwelling Urethral Catheter 600 / 600 350 / 350 Other: Date of Last Bowel Movement 10/19/17 10/19/17 - Urinary Catheter Management Indwelling Urethral Catheter Cath placed during this visit: no <Roseline Odonnell A - Last Filed: 10/19/17 20:55> Results - Labs CBC & Chem 7: 10/19/17 05:51 10/19/17 05:51 Laboratory Results - last 24 hr 10/18/17 10/18/17 10/18/17 14:59 19:21 19:21 WBC 23.7 H RBC 3.00 L Hgb 10.5 L Hct 33.5 L MCV 111.5 H MCH 34.8 H MCHC 31.2 L RDW 29.5 H Plt Count 171 MPV 8.5 Prelim Diff (Auto) Slide review pending Neut % (Auto) 88.8 H Lymph % (Auto) 6.5 L [place] % (Auto) 4.4 Eos % (Auto) 0.0 Baso % (Auto) 0.3 Neut # (Auto) 21.0 H Lymph # (Auto) 1.5 [place] # (Auto) 1.0 H Eos # (Auto) 0.0 Baso # (Auto) 0.1 WBC Differential Manual diff final Seg Neuts % (Manual) 82 H Band Neuts % (Manual) 13 H Lymphocytes % (Manual) 2 L Monocytes % (Manual) 2 Metamyelocytes % (Man) 1 Abs Neuts (Manual) 22.8 H Nucleated RBCs/100 WBC Differential Comment . Dohle Bodies Platelet Estimate Normal Platelet Morphology Normal Dimorphic RBCs Present H Basophilic Stippling Tear Drop Cells 1+ H Ovalocytes 1+ H Acanthocytes (Spur) Keratocytes PT 12.0 H INR 1.2 APTT 34.4 H Sodium Potassium Chloride Carbon Dioxide Anion Gap BUN Creatinine Estimated GFR Random Glucose Lactic Acid Calcium Phosphorus Magnesium Total Bilirubin AST ALT Alkaline Phosphatase Total Protein Albumin Amylase 409 H Lipase 1195 H TSH Free T4 10/18/17 10/18/17 10/19/17 19:21 19:21 02:17 WBC RBC Hgb Hct MCV MCH MCHC RDW Plt Count MPV Prelim Diff (Auto) Neut % (Auto) Lymph % (Auto) [place] % (Auto) Eos % (Auto) Baso % (Auto) Neut # (Auto) Lymph # (Auto) [place] # (Auto) Eos # (Auto) Baso # (Auto) WBC Differential Seg Neuts % (Manual) Band Neuts % (Manual) Lymphocytes % (Manual) Monocytes % (Manual) Metamyelocytes % (Man) Abs Neuts (Manual) Nucleated RBCs/100 WBC Differential Comment Dohle Bodies Platelet Estimate Platelet Morphology Dimorphic RBCs Basophilic Stippling Tear Drop Cells Ovalocytes Acanthocytes (Spur) Keratocytes PT INR APTT Sodium Potassium Chloride Carbon Dioxide Anion Gap BUN Creatinine 1.27 Estimated GFR 54 L Random Glucose Lactic Acid 2.4 H 2.0 Calcium Phosphorus Magnesium Total Bilirubin 1.7 H AST ALT Alkaline Phosphatase Total Protein Albumin Amylase Lipase TSH Free T4 10/19/17 10/19/17 05:51 05:51 WBC 24.9 H RBC 3.02 L Hgb 10.8 L Hct 33.8 L MCV 111.9 H MCH 35.7 H MCHC 31.9 L RDW 30.2 H Plt Count 201 MPV 10.0 Prelim Diff (Auto) Slide review pending Neut % (Auto) 93.2 H Lymph % (Auto) 2.8 L [place] % (Auto) 3.6 Eos % (Auto) 0.0 Baso % (Auto) 0.4 Neut # (Auto) 23.2 H Lymph # (Auto) 0.7 L [place] # (Auto) 0.9 Eos # (Auto) 0.0 Baso # (Auto) 0.1 WBC Differential Manual diff final Seg Neuts % (Manual) 69 Band Neuts % (Manual) 27 H Lymphocytes % (Manual) 3 L Monocytes % (Manual) 1 Metamyelocytes % (Man) Abs Neuts (Manual) 23.9 H Nucleated RBCs/100 WBC 1 H Differential Comment . Dohle Bodies Present H Platelet Estimate Normal Platelet Morphology Normal Dimorphic RBCs Basophilic Stippling Faint H Tear Drop Cells 1+ H Ovalocytes 1+ H Acanthocytes (Spur) Occ H Keratocytes Occ H PT INR APTT Sodium 141 Potassium 4.0 Chloride 111 H Carbon Dioxide 16.8 L Anion Gap 13 BUN 31 H Creatinine 1.37 H Estimated GFR 49 L Random Glucose 209 H Lactic Acid Calcium 7.7 L Phosphorus 2.2 L Magnesium 2.1 Total Bilirubin 1.8 H AST 34 ALT 60 Alkaline Phosphatase 80 Total Protein 6.8 Albumin 2.6 L Amylase Lipase TSH 0.327 L Free T4 1.17 Microbiology 10/18/17 19:21 Blood - Peripheral Aerobic Blood Culture - Preliminary No growth in 1 day 10/18/17 19:21 Blood - Peripheral Anaerobic Blood Culture - Preliminary No growth in 1 day 10/18/17 19:15 Blood - Peripheral Aerobic Blood Culture - Preliminary No growth in 1 day 10/18/17 19:15 Blood - Peripheral Anaerobic Blood Culture - Preliminary No growth in 1 day 10/17/17 05:50 Blood - Peripheral Aerobic Blood Culture - Preliminary No growth in 2 days 10/17/17 05:50 Blood - Peripheral Anaerobic Blood Culture - Preliminary No growth in 2 days 10/17/17 05:55 Blood - Peripheral Aerobic Blood Culture - Preliminary No growth in 2 days 10/17/17 05:55 Blood - Peripheral Anaerobic Blood Culture - Preliminary No growth in 2 days 10/17/17 13:37 Catheterized Urine Urine Culture - Preliminary No growth in 24 hours - Imaging Impressions Chest X-Ray 10/18/17 00:00 CONCLUSION: Pacemaker with moderate compensated cardiomegaly. I don't see significant failure. GI Procedure 10/18/17 00:00 CONCLUSION: Multiple filling defects are identified in the common bile duct which is distended. Abdomen X-Ray 10/19/17 10:44 CONCLUSION: No radiographic evidence of ileus or bowel obstruction. No evidence of free air. - Procedures ERCP PROCEDURE REPORT EXAM DATE: 10/18/2017 PATIENT NAME: Bulmaro Guillen MR #: [id number] BIRTHDATE: 1930 ATTENDING: Roseline Odonnell MD ORDER #: [id number] CRATE REPAIRER: Roge Villaseñor and Liana Holguin STATUS: inpatient INDICATIONS: The patient is a 87 yr old male here for an ERCP due to established ascending cholangitis PROCEDURE PERFORMED: ERCP with sphincterotomy/papillotomy ERCP with removal of calculus/calculi MEDICATIONS: None and Per Anesthesia. CONSENT: The patient understands the risks and benefits of the procedure and understands that these risks include, but are not limited to: sedation, allergic reaction, infection, perforation and/or bleeding. Alternative means of evaluation and treatment include, among others: physical exam, x-rays, and/or surgical intervention. The patient elects to proceed with this endoscopic procedure. medical equipment was checked for proper function. Hand hygiene and appropriate measures for infection prevention was taken. After the risks, benefits and alternatives of the procedure were thoroughly explained, Informed was verified, confirmed and timeout was successfully executed by the treatment team. With the patient in left semi-prone position, medications were administered intravenously.The [employer]ax [id number] was passed from the mouth into the esophagus and further advanced from the esophagus into the stomach. From stomach scope was directed to the second portion of the duodenum. Major papilla was aligned with the duodenoscope. The scope position was confirmed fluoroscopically. Rest of the findings/therapeutics are given below. The scope was then completely withdrawn from the patient and the procedure completed. The pulse, BP, and O2 saturation were monitored and documented by the physician and the nursing staff throughout the entire procedure. The patient was cared for as planned according to standard protocol. The patient was then discharged to recovery in stable condition and with appropriate post procedure care. The ampulla was located the second portion of the duodenum. A previously placed stent was seen extending from the orifice. The old stent was removed using a snare. There was a dilation of the common hepatic duct and CBD. Three filling defects were seen in the distal common bile duct. With guidewire in the bile duct, a large biliary sphincterotomy was performed using the sphincterotome. Using a stone extraction balloon the bile duct was swept several times. Multiple stones were removed from the bile duct successfully. Using a stone extraction balloon the bile duct was swept several times. Multiple stone fragments were removed from the bile duct successfully. ADVERSE EVENT: There were no complications. IMPRESSIONS: 1. A previously placed ampulla stent was seen extending from the orifice, removed by snare. 2. 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 3. Sphincterotomy done. 4. Ductal sweep with balloon and irrigation removing multiple variable size stones, sludge and debris. 5. Normal inclusion cholangiogram afterward RECOMMENDATIONS: 1. Antibiotics 2. Liver enzymes REPEAT EXAM: NONE <Alley Ruiz - Last Filed: 10/19/17 11:35> - Labs CBC & Chem 7: 10/19/17 05:51 10/19/17 05:51 Laboratory Results - last 24 hr 10/19/17 10/19/17 10/19/17 02:17 05:51 05:51 WBC 24.9 H RBC 3.02 L Hgb 10.8 L Hct 33.8 L MCV 111.9 H MCH 35.7 H MCHC 31.9 L RDW 30.2 H Plt Count 201 MPV 10.0 Prelim Diff (Auto) Slide review pending Neut % (Auto) 93.2 H Lymph % (Auto) 2.8 L [place] % (Auto) 3.6 Eos % (Auto) 0.0 Baso % (Auto) 0.4 Neut # (Auto) 23.2 H Lymph # (Auto) 0.7 L [place] # (Auto) 0.9 Eos # (Auto) 0.0 Baso # (Auto) 0.1 WBC Differential Manual diff final Seg Neuts % (Manual) 69 Band Neuts % (Manual) 27 H Lymphocytes % (Manual) 3 L Monocytes % (Manual) 1 Abs Neuts (Manual) 23.9 H Nucleated RBCs/100 WBC 1 H Differential Comment . Dohle Bodies Present H Platelet Estimate Normal Platelet Morphology Normal Basophilic Stippling Faint H Tear Drop Cells 1+ H Ovalocytes 1+ H Acanthocytes (Spur) Occ H Keratocytes Occ H Sodium Potassium Chloride Carbon Dioxide Anion Gap BUN Creatinine Estimated GFR Random Glucose Hemoglobin A1c 5.5 Lactic Acid 2.0 Calcium Phosphorus Magnesium Total Bilirubin AST ALT Alkaline Phosphatase Total Protein Albumin TSH Free T4 Urine Color Urine Clarity Urine pH Ur Specific [place] Urine Protein Urine Glucose (UA) Urine Ketones Urine Occult Blood Urine Nitrate Urine Bilirubin Urine Urobilinogen Ur Leukocyte Esterase Urine RBC Urine WBC Amorphous Sediment Urine Bacteria Urine Mucus Micro UA Comment Urine Culture Comments 10/19/17 10/19/17 10/19/17 05:51 16:50 17:15 WBC RBC Hgb Hct MCV MCH MCHC RDW Plt Count MPV Prelim Diff (Auto) Neut % (Auto) Lymph % (Auto) [place] % (Auto) Eos % (Auto) Baso % (Auto) Neut # (Auto) Lymph # (Auto) [place] # (Auto) Eos # (Auto) Baso # (Auto) WBC Differential Seg Neuts % (Manual) Band Neuts % (Manual) Lymphocytes % (Manual) Monocytes % (Manual) Abs Neuts (Manual) Nucleated RBCs/100 WBC Differential Comment Dohle Bodies Platelet Estimate Platelet Morphology Basophilic Stippling Tear Drop Cells Ovalocytes Acanthocytes (Spur) Keratocytes Sodium 141 Potassium 4.0 Chloride 111 H Carbon Dioxide 16.8 L Anion Gap 13 BUN 31 H Creatinine 1.37 H Estimated GFR 49 L Random Glucose 209 H Hemoglobin A1c Lactic Acid 3.6 H Calcium 7.7 L Phosphorus 2.2 L Magnesium 2.1 Total Bilirubin 1.8 H AST 34 ALT 60 Alkaline Phosphatase 80 Total Protein 6.8 Albumin 2.6 L TSH 0.327 L Free T4 1.17 Urine Color [place] Urine Clarity Cloudy H Urine pH 5.0 Ur Specific [place] 1.031 Urine Protein 100 H Urine Glucose (UA) 50 Urine Ketones Negative Urine Occult Blood Moderate H Urine Nitrate Negative Urine Bilirubin Negative Urine Urobilinogen Less than 2 Ur Leukocyte Esterase Negative Urine RBC 20 H Urine WBC 21 H Amorphous Sediment Few H Urine Bacteria Few H Urine Mucus Few H Micro UA Comment Cath-culture ind Urine Culture Comments Cath-cult indicated Microbiology 10/17/17 13:37 Catheterized Urine Urine Culture - Final No growth in 48 hours 10/18/17 19:21 Blood - Peripheral Aerobic Blood Culture - Preliminary No growth in 1 day 10/18/17 19:21 Blood - Peripheral Anaerobic Blood Culture - Preliminary No growth in 1 day 10/18/17 19:15 Blood - Peripheral Aerobic Blood Culture - Preliminary No growth in 1 day 10/18/17 19:15 Blood - Peripheral Anaerobic Blood Culture - Preliminary No growth in 1 day 10/17/17 05:50 Blood - Peripheral Aerobic Blood Culture - Preliminary No growth in 2 days 10/17/17 05:50 Blood - Peripheral Anaerobic Blood Culture - Preliminary No growth in 2 days 10/17/17 05:55 Blood - Peripheral Aerobic Blood Culture - Preliminary No growth in 2 days 10/17/17 05:55 Blood - Peripheral Anaerobic Blood Culture - Preliminary No growth in 2 days - Imaging Impressions Abdomen/Pelvis CT 10/19/17 00:00 CONCLUSION: 1. Induration in the mesentery and abutting the undersurface of the pancreas. There is also induration in the posterior right pararenal space. This distribution is most suggestive of pancreatitis. 2. New dilatation the distal esophagus, stomach, and proximal small bowel. Contrast is seen to reach the colon. This could be a asymmetric ileus. Some degree of obstruction cannot be excluded. 3. Mild bilateral pleural effusions with accompanying areas of atelectasis or consolidation being worse on the right. 4. Pneumobilia. The previously seen biliary duct stent has been removed. The common bile duct is dilated measuring 1.8 cm. The patient is status post cholecystectomy. Abdomen X-Ray 10/19/17 10:44 CONCLUSION: No radiographic evidence of ileus or bowel obstruction. No evidence of free air. <Roseline Odonnell - Last Filed: 10/19/17 20:55> Assessment and Plan (1) Cholangitis Status: Acute Code(s): K83.0 - Cholangitis (2) Elevated LFTs Status: Acute Code(s): R94.5 - Abnormal results of liver function studies (3) Pancreatitis Status: Acute Code(s): K85.90 - Acute pancreatitis without necrosis or infection, unspecified - Plan Assessment: - Elevated LFTs and pancreatitis with recent ERCP with findings of biliary sludge and bile duct dilatation S/P balloon sweep and plastic stent placement on 10/11- Pt with history of choledocholithiasis and cholangitis. History of cholecystectomy. Complaining of: upper abdominal pain that began at 9pm last night after dinner at 8pm, constant, described as "hunger pains". Denies associated fever, chills, nausea, vomiting. Denies history of pancreatitis. Denies ETOH. CT abdomen and pelvis W IV contrast (10/17) Moderate peripancreatic inflammatory stranding consistent with pancreatitis. Pancreas enhances uniformly and there is no peripancreatic fluid collection at this time. Interval placement of CBD stent with persistent intra and extra hepatic ductal dilatation. Focal adynamic ileus in the proximal jejunum secondary to the peripancreatic inflammatory changes Pt unable to have MRCP due to pacemaker (10/19) Pt reports feeling uncomfortable today and abdominal distention. Also has been burping a lot. Denies nausea, vomiting. (+) BM today S/P ERCP yesterday --> A previously placed ampulla stent was seen extending from the orifice, removed by snare. 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 Sphincterotomy done. Ductal sweep with balloon and irrigation removing multiple variable size stones, sludge and debris. Normal inclusion cholangiogram afterward Pt seen over an hour ago- STAT KUB ordered due to distention- KUB shows no ileus or obstruction. No improvement in leukocytosis, remains on Zosyn, afebrile. No repeat lipase from today, T bili remains the same. AST, ALT and alk phos WNL Plan: NG to LIWS if pt becomes nauseous or vomiting Liquid diet Zosyn Monitor LFTs and lipase Further recommendations based on clinical course Pt has been seen and examined by myself and Dr. Odonnell and this note is written on his behalf <Alley Ruiz - Last Filed: 10/19/17 11:35> (1) Cholangitis Status: Acute Code(s): K83.0 - Cholangitis (2) Elevated LFTs Status: Acute Code(s): R94.5 - Abnormal results of liver function studies (3) Pancreatitis Status: Acute Code(s): K85.90 - Acute pancreatitis without necrosis or infection, unspecified - Attending Attestation Still recovering from the pancreatitis and ileus, abdomen still distended and no BM. Will follow KUB in AM, lipase and clinically. <Roseline Odonnell - Last Filed: 10/19/17 20:55>
[2017-10-19] MEDS: Piperacil/Tazo 3.375 GM Premix 50 ML IV.SIG SCH ×2 (12:21→20:45)
--- NOTE | 2017-10-19 16:29 | P.PNFP ---
Subjective Interval history: Pt seen and examined. at the bedside. S/P ERCP yesterday. Pt reports feeling very weak and endorses abdominal discomfort. He is getting worsening distention. He is not passing gas. He had a small BM earlier today. He is belching a lot. He denies N/V. He is tolerating liquids. Cathed urine is pink/ red. Results - Labs Result diagrams: 10/19/17 05:51 10/19/17 05:51 Abnormal lab results 10/18/17 10/18/17 10/18/17 Range/Units 19:21 19:21 19:21 WBC 23.7 H (4.0-11.0) th/mm3 RBC 3.00 L (4.50-5.90) mil/mm3 Hgb 10.5 L (13.0-17.0) gm/dL Hct 33.5 L (39.0-51.0) % MCV 111.5 H (80.0-100.0) fL MCH 34.8 H (27.0-34.0) pg MCHC 31.2 L (32.0-36.0) % RDW 29.5 H (11.6-17.2) % Neut % (Auto) 88.8 H (16.0-70.0) % Lymph % (Auto) 6.5 L (9.0-44.0) % Neut # (Auto) 21.0 H (1.8-7.7) th/mm3 Lymph # (Auto) (1.0-4.8) th/mm3 [place] # (Auto) 1.0 H (0.0-0.9) th/mm3 Seg Neuts % (Manual) 82 H (16-70) % Band Neuts % (Manual) 13 H (0-6) % Lymphocytes % (Manual) 2 L (9-44) % Abs Neuts (Manual) 22.8 H (1.8-7.7) th/mm3 Nucleated RBCs/100 WBC (0-0) /100 WBC Dohle Bodies (None) Dimorphic RBCs Present H (None) Basophilic Stippling (None) Tear Drop Cells 1+ H (None) Ovalocytes 1+ H (None) Acanthocytes (Spur) (None) Keratocytes (None) PT 12.0 H (9.8-11.6) sec APTT 34.4 H (24.3-30.1) sec Chloride (98-107) meq/L Carbon Dioxide (21.0-32.0) meq/L BUN (7-18) mg/dL Creatinine (0.60-1.30) mg/dL Estimated GFR 54 L (>89) mL/min Random Glucose (74-106) mg/dL Lactic Acid (0.4-2.0) mmol/L Calcium (8.5-10.1) mg/dL Phosphorus (2.5-4.9) mg/dL Total Bilirubin 1.7 H (0.2-1.0) mg/dL Albumin (3.4-5.0) g/dL TSH (0.358-3.740) uIU/mL 10/18/17 10/19/17 10/19/17 Range/Units 19:21 05:51 05:51 WBC 24.9 H (4.0-11.0) th/mm3 RBC 3.02 L (4.50-5.90) mil/mm3 Hgb 10.8 L (13.0-17.0) gm/dL Hct 33.8 L (39.0-51.0) % MCV 111.9 H (80.0-100.0) fL MCH 35.7 H (27.0-34.0) pg MCHC 31.9 L (32.0-36.0) % RDW 30.2 H (11.6-17.2) % Neut % (Auto) 93.2 H (16.0-70.0) % Lymph % (Auto) 2.8 L (9.0-44.0) % Neut # (Auto) 23.2 H (1.8-7.7) th/mm3 Lymph # (Auto) 0.7 L (1.0-4.8) th/mm3 [place] # (Auto) (0.0-0.9) th/mm3 Seg Neuts % (Manual) (16-70) % Band Neuts % (Manual) 27 H (0-6) % Lymphocytes % (Manual) 3 L (9-44) % Abs Neuts (Manual) 23.9 H (1.8-7.7) th/mm3 Nucleated RBCs/100 WBC 1 H (0-0) /100 WBC Dohle Bodies Present H (None) Dimorphic RBCs (None) Basophilic Stippling Faint H (None) Tear Drop Cells 1+ H (None) Ovalocytes 1+ H (None) Acanthocytes (Spur) Occ H (None) Keratocytes Occ H (None) PT (9.8-11.6) sec APTT (24.3-30.1) sec Chloride 111 H (98-107) meq/L Carbon Dioxide 16.8 L (21.0-32.0) meq/L BUN 31 H (7-18) mg/dL Creatinine 1.37 H (0.60-1.30) mg/dL Estimated GFR 49 L (>89) mL/min Random Glucose 209 H (74-106) mg/dL Lactic Acid 2.4 H (0.4-2.0) mmol/L Calcium 7.7 L (8.5-10.1) mg/dL Phosphorus 2.2 L (2.5-4.9) mg/dL Total Bilirubin 1.8 H (0.2-1.0) mg/dL Albumin 2.6 L (3.4-5.0) g/dL TSH 0.327 L (0.358-3.740) uIU/mL Short CBC 10/18/17 10/19/17 Range/Units 19:21 05:51 WBC 23.7 H 24.9 H (4.0-11.0) th/mm3 Hgb 10.5 L 10.8 L (13.0-17.0) gm/dL Hct 33.5 L 33.8 L (39.0-51.0) % Plt Count 171 201 (150-450) th/mm3 BMP 10/18/17 10/19/17 19:21 05:51 Sodium 141 Potassium 4.0 Chloride 111 H Carbon Dioxide 16.8 L BUN 31 H Creatinine 1.27 1.37 H Calcium 7.7 L Liver Function 10/18/17 10/19/17 Range/Units 19:21 05:51 Total Bilirubin 1.7 H 1.8 H (0.2-1.0) mg/dL AST 34 (15-37) U/L ALT 60 (12-78) U/L Alkaline Phosphatase 80 (45-117) U/L Albumin 2.6 L (3.4-5.0) g/dL - Imaging Impressions Chest X-Ray 10/18/17 00:00 CONCLUSION: Pacemaker with moderate compensated cardiomegaly. I don't see significant failure. Abdomen X-Ray 10/19/17 10:44 CONCLUSION: No radiographic evidence of ileus or bowel obstruction. No evidence of free air. Physical Exam Vital signs: Vital Signs 10/18/17 20:00 10/18/17 21:00 10/18/17 22:00 Temperature 98.1 F Pulse Rate 100 H 103 H 101 H Respiratory Rate 22 Blood Pressure 132/61 Pulse Oximetry 95 10/18/17 23:00 10/19/17 00:00 10/19/17 01:00 Temperature 98.2 F Pulse Rate 102 H 102 H 98 H Respiratory Rate 22 Blood Pressure 147/70 H Pulse Oximetry 95 10/19/17 02:00 10/19/17 02:51 10/19/17 03:00 Temperature Pulse Rate 104 H 83 100 H Respiratory Rate 28 H Blood Pressure Pulse Oximetry 10/19/17 04:00 10/19/17 04:42 10/19/17 05:00 Temperature 98.2 F Pulse Rate 102 H 100 H 104 H Respiratory Rate 18 Blood Pressure 142/65 H Pulse Oximetry 95 10/19/17 05:57 10/19/17 06:00 10/19/17 07:00 Temperature Pulse Rate 103 H 106 H 104 H Respiratory Rate Blood Pressure Pulse Oximetry 10/19/17 08:00 10/19/17 09:00 10/19/17 10:00 Temperature 98.3 F Pulse Rate 106 H 102 H 100 H Respiratory Rate 20 Blood Pressure 131/77 Pulse Oximetry 95 10/19/17 11:00 10/19/17 12:00 10/19/17 13:00 Temperature 98.8 F Pulse Rate 106 H 106 H 98 H Respiratory Rate 18 Blood Pressure 135/69 Pulse Oximetry 94 L 10/19/17 14:00 10/19/17 15:00 Temperature Pulse Rate 100 H 103 H Respiratory Rate Blood Pressure Pulse Oximetry Intake & Output 10/18/17 10/19/17 10/19/17 18:59 06:59 18:59 Intake Total 2200 / 2200 955 / 955 Output Total 300 / 300 600 / 600 Balance 1900 / 1900 355 / 355 Intake: IV 2100 / 2100 475 / 475 NS Inj 1,000 ML @ 250 mls/hr IV 1999 375 / 375 .CONT .Q4H K[facility]K Rx#:[id number] Zosyn 4.5 GM Premix 4.5 gm In 100 / 100 100 / 100 100 ml @ 200 mls/hr IV.SIG Q8HR KIRK Rx#:[id number] Oral 100 / 100 480 / 480 Output: Urine Amount (Catheter) 300 / 300 600 / 600 Indwelling Urethral Catheter 300 / 300 600 / 600 Other: Date of Last Bowel Movement 10/16/17 10/19/17 Narrative: GENERAL: WN, WD elderly male sitting up in chair in NAD. SKIN: Warm and dry. HEENT: AT/NC. Pupils equal and round. MMM. HEART: RRR no m/r/g. LUNGS: CTAB without wheezes or crackles. ABDOMEN: Diminished BS. Distended abdomen. No significant TTP. EXTREMITIES: Trace LE edema. NEURO: Awake and alert. - Urinary Catheter Management Indwelling Urethral Catheter Cath placed during this visit: yes Reason for continuing: Chronic Urinary Retention Insertion date: 10/17/17 Insertion time: 17:30 Assessment and Plan - Assessment (1) Pancreatitis Code(s): K85.90 - Acute pancreatitis without necrosis or infection, unspecified Status: Acute - Assessment and Plan 87 YOWM with history of choledocholithiasis and cholangitis status post recent ERCP admitted on 10/17 with progressive abdominal pain. CT A/P as well as lipase level indicate acute pancreatitis. 1. Acute pancreatitis - Lipase 9833 on admission - CT A/P showing mod peripancreatic inflammatory stranding and persistent intra- and extrahepatic ductal dilation with CBD stent in place - GI consulted and patient underwent repeat ERCP yesterday (10/18) with stent removal, sphincterotomy, and stone removal - Pain control - Continue Zosyn - NS at 125 ml/hr - Check lipase, CMP, and CBC in the AM - Liquid diet per GI 2. Abdominal distention - Likely secondary to severe pancreatitis - Stat KUB today showed no ileus or SBO - GI following - Pain control - NPO - If N/V develops patient will need NGT - Check CT A/P to assess for pancreatitis complications, avoid contrast secondary to SHARRI 3. Leukocytosis - WBC up to 24.9 - Tachycardic with HR low 100s - Check stat lactic acid - Continue Zosyn - ?Secondary to pancreatitis 4. SHARRI - Creatinine up to 1.37 from 1.27 - D/C vancomycin since nephrotoxic - IV hydration - Monitor closely - Renally dose meds 5. Hematuria - Hernandez bag showing pink/red urine - Check U/A - CT A/P DVT prophylaxis: Heparin
[2017-10-19 17:47] LABS: Amorphous Sediment,Urine Few /hpf; Bacteria,Urine Few /hpf; Bilirubin,Urine Negative (Negative); Clarity,Urine Cloudy (Clear); Color,Urine Amber (Yellw/Straw); Glucose,Urine (UA) 50 mg/dL (Negative); Leukocyte Esterase,Urine Negative (Negative); Mucus,Urine Few /lpf (Occasional); Nitrite,Urine Negative (Negative); Specific Gravity,Urine 1.031 (1.002-1.035)
--- NOTE | 2017-10-19 18:22 | CT ---
EXAM DATE: 10/19/2017 6:14 PM EDT AGE/SEX: 87 years / Male INDICATIONS: Abdominal pain and distention. CLINICAL DATA: This is the patient's initial encounter. Patient reports that signs and symptoms have been present for 1 day and indicates a pain score of 6/10. MEDICAL/SURGICAL HISTORY: Pancreatitis. Gastroesophageal reflux disease. Anemia. Sepsis Cho lecystectomy. Pacemaker. Biliary stent, Hernia repair RADIATION DOSE: 15.31 CTDI (mGy) COMPARISON: [facility] [place], CT ABDOMEN & PELVIS W CONTRAST, 10/17/2017. . TECHNIQUE: Multiple contiguous axial images were obtained through the abdomen. Images were obtained using multiple row detector helical technique. Using automated exposure control and adjustment of the mA and/or kV according to patient size, radiation dose was kept as low as reasonably achievable to o btain optimal diagnostic quality images. DICOM format image data is available electronically for rev iew and comparison. FINDINGS: Lower chest: There are mild bilateral pleural effusions being worse on the right. There is accompanyi ng areas of atelectasis or consolidation at the lower lobes. Calcified granulomas are seen. Coronary artery calcifications are present. Pacing leads are present. Liver: There is pneumobilia. Calcified granulomas are seen in the liver. The common bile duct is dila kevon measuring up to 1.8 cm in diameter. The patient is status post cholecystectomy. The previously se en, common bile duct stent is no longer present. Spleen: Homogeneous density without enlargement. Pancreas: The pancreas itself appears unremarkable. There is induration seen around the pancreatic b tommy and extending into the root of the mesentery. Inflammatory changes seen in the posterior right pa rarenal space. Kidneys: Normal in size and shape. No evidence of mass or hydronephrosis. Adrenal Glands: Unremarkable. Aorta: The aorta and proximal iliac vessels are grossly unremarkable without aneurysmal dilation. Bowel/Mesentery: There is fluid within a distended esophagus. The stomach is distended. The proximal small bowel appears distended measuring up to 5.3 cm. The mid small bowel distal small bowel are not distended. There are colonic diverticula. Contrast is seen within the colon. Abdominal Wall: Hernia mesh is seen at the inferior anterior abdominal wall. Retroperitoneum: No evidence of adenopathy in the retrocrural, para-aortic, or deep pelvic regions. Bladder: There is a Hernandez catheter in the urinary bladder. Reproductive Organs: No abnormal masses or calcifications seen. Inguinal: The inguinal region is unremarkable without evidence of adenopathy. Bony Structures: There is degenerative change in the lumbar spine. Surgical hardware is seen at the proximal right femur. CONCLUSION: 1. Induration in the mesentery and abutting the undersurface of the pancreas. There is also indurati on in the posterior right pararenal space. This distribution is most suggestive of pancreatitis. 2. New dilatation the distal esophagus, stomach, and proximal small bowel. Contrast is seen to reach the colon. This could be a asymmetric ileus. Some degree of obstruction cannot be excluded. 3. Mild bilateral pleural effusions with accompanying areas of atelectasis or consolidation being wo rse on the right. 4. Pneumobilia. The previously seen biliary duct stent has been removed. The common bile duct is dil ated measuring 1.8 cm. The patient is status post cholecystectomy. Electronically signed by: Jesus Mei MD 10/19/2017 6:20 PM EDT
[2017-10-19] MEDS: Sod Chloride 0.9% Inj 1,000 ML IV.CONT SCH (18:48)
[2017-10-19] MEDS: Senna/Docusate Sodium 8.6/50 MG Tablet PO SCH (20:46)
[2017-10-20] MEDS: Piperacil/Tazo 3.375 GM Premix 50 ML IV.SIG SCH ×4 (00:34→21:07)
[2017-10-20 01:56] LABS: Baso # (Auto) 0.1 th/mm3 (0.0-0.2); Baso % (Auto) 0.4 % (0.0-2.0); Hemoglobin 9.5 gm/dL (13.0-17.0); Lymph # (Auto) 1.7 th/mm3 (1.0-4.8); Lymph % (Auto) 9.2 % (9.0-44.0); Mean Corpuscular HGB Conc 31.8 % (32.0-36.0); Mean Corpuscular Hemoglobin 35.3 pg (27.0-34.0); Mean Corpuscular Volume 111.1 fL (80.0-100.0); Mean Platelet Volume 8.8 fL (7.0-11.0); Mono # (Auto) 0.9 th/mm3 (0.0-0.9); Mono % (Auto) 5.1 % (0.0-8.0); Neut # (Auto) 15.4 th/mm3 (1.8-7.7); Neut % (Auto) 85.3 % (16.0-70.0); Platelet Count 174 th/mm3 (150-450); Red Cell Distribution Width 29.6 % (11.6-17.2)
[2017-10-20 02:21] LABS: Alanine Aminotransferase 42 U/L (12-78); Albumin 2.6 g/dL (3.4-5.0); Alkaline Phosphatase 63 U/L (45-117); Anion Gap 11 meq/L (5-15); Aspartate Aminotransferase 17 U/L (15-37); Blood Urea Nitrogen 48 mg/dL (7-18); Calcium 7.9 mg/dL (8.5-10.1); Carbon Dioxide 20.6 meq/L (21.0-32.0); Chloride 109 meq/L (98-107); Glomerular Filtration Rate 39 mL/min (>89); Glucose,Random 236 mg/dL (74-106); Magnesium 2.2 mg/dL (1.5-2.5); Potassium 3.8 meq/L (3.5-5.1); Sodium 141 meq/L (136-145); Total Protein 6.5 g/dL (6.4-8.2)
[2017-10-20] MEDS: Sod Chloride 0.9% Inj 1,000 ML IV.CONT SCH ×4 (03:15→22:31)
[2017-10-20 03:17] LABS: Lymphocytes 4 % (9-44); Monocytes 1 % (0-8); Tallied Nucleated RBC 1 (0-0)
[2017-10-20 03:20] LABS: Target Cells 1+
[2017-10-20 03:21] LABS: Basophilic Stippling Moderate; Dohle Bodies Present; Ovalocytes 1+; Platelet Estimate Normal (Normal); Tear Drop Cells 1+
[2017-10-20 04:12] LABS: Lipase 1097 U/L (73-393)
[2017-10-20] MEDS ORDERED: Pharmacy Ordered Lab Info OTHER SCH (05:45)
--- NOTE | 2017-10-20 05:59 | XR ---
EXAM DATE: 10/20/2017 4:51 AM EDT AGE/SEX: 87 years / Male INDICATIONS: Lower chest pain. Possible free air. CLINICAL DATA: This is the patient's subsequent encounter. Patient reports that signs and symptoms h ave been present for 2 days and indicates a pain score of Nonresponsive. MEDICAL/SURGICAL HISTORY: None. None. COMPARISON: [facility] [place], CHEST 1V SINGLE AP, 10/18/2017. . FINDINGS: A pacing implement is present with control pack over left upper chest. Nasogastric tube descends into the stomach. There is been slight interval worsening in basilar infiltrates. Cardiac contours are un changed. Nothing to suggest pneumoperitoneum CONCLUSION: Slight interval worsening in aeration Electronically signed by: Jesus Mansfield MD 10/20/2017 5:57 AM EDT
--- NOTE | 2017-10-20 06:02 | XR ---
EXAM DATE: 10/20/2017 4:57 AM EDT AGE/SEX: 87 years / Male INDICATIONS: Distention. Abdominal pain. CLINICAL DATA: This is the patient's subsequent encounter. Patient reports that signs and symptoms h ave been present for 3 days and indicates a pain score of 7/10. MEDICAL/SURGICAL HISTORY: None. None. COMPARISON: [facility], CHEST 1V SINGLE AP, 10/20/2017. . FINDINGS: I believe the patient has a nasogastric tube, however the tip of the tube is not clearly seen on thi s image. Intestinal gas pattern is nonspecific with air present in stomach and grossly normal caliber colon. There is a mildly distended loop in the left lower quadrant. No definite suspicious calcifica tions. Previous pinning of the right hip. Degenerative changes in the spine. CONCLUSION: Nasogastric tube tip not clearly seen. Mildly distended bowel loop in the left lower quadrant. Otherwise nonspecific Electronically signed by: Jesus Mansfield MD 10/20/2017 6:01 AM EDT
--- NOTE | 2017-10-20 07:13 | P.PNFP ---
Subjective Interval history: Pt seen and examined for f/u pancreatitis s/p ERCP and abdominal distention. Overnight he developed N/V and an NGT was placed. He has also remained tachycardic overnight to low 100s and telemetry reading atrial fibrillation. HR slightly down to 80-90s this AM. Patient denies prior history of afib. States he follows with Dr. Elkins. Denies CP, palpitations, SOB, dizziness. Denies any significant abdominal discomfort but his abdomen remains distended and he has not passed gas or had a BM since yesterday morning. He endorses irritation in his throat from the NGT. Results - Labs Result diagrams: 10/20/17 01:30 10/20/17 01:30 Abnormal lab results 10/19/17 10/19/17 10/19/17 Range/Units 05:51 05:51 16:50 WBC (4.0-11.0) th/mm3 RBC (4.50-5.90) mil/mm3 Hgb (13.0-17.0) gm/dL Hct (39.0-51.0) % MCV (80.0-100.0) fL MCH (27.0-34.0) pg MCHC (32.0-36.0) % RDW (11.6-17.2) % Neut % (Auto) (16.0-70.0) % Neut # (Auto) (1.8-7.7) th/mm3 Seg Neuts % (Manual) (16-70) % Band Neuts % (Manual) 27 H (0-6) % Lymphocytes % (Manual) 3 L (9-44) % Abs Neuts (Manual) 23.9 H (1.8-7.7) th/mm3 Nucleated RBCs/100 WBC 1 H (0-0) /100 WBC Dohle Bodies Present H (None) Platelet Morphology (Normal) Basophilic Stippling Faint H (None) Target Cells (None) Tear Drop Cells 1+ H (None) Ovalocytes 1+ H (None) Acanthocytes (Spur) Occ H (None) Keratocytes Occ H (None) Chloride (98-107) meq/L Carbon Dioxide (21.0-32.0) meq/L BUN (7-18) mg/dL Creatinine (0.60-1.30) mg/dL Estimated GFR (>89) mL/min Random Glucose (74-106) mg/dL Lactic Acid 3.6 H (0.4-2.0) mmol/L Calcium (8.5-10.1) mg/dL Phosphorus 2.2 L (2.5-4.9) mg/dL Total Bilirubin 1.8 H (0.2-1.0) mg/dL Albumin (3.4-5.0) g/dL Lipase (73-393) U/L TSH 0.327 L (0.358-3.740) uIU/mL Urine Clarity (Clear) Urine Protein (Neg-Trace) mg/dL Urine Occult Blood (Negative) Urine RBC (0-3) /hpf Urine WBC (0-5) /hpf Amorphous Sediment (None) /hpf Urine Bacteria (None) /hpf Urine Mucus (Occasional) /lpf 10/19/17 10/20/17 10/20/17 Range/Units 17:15 01:30 01:30 WBC 18.0 H (4.0-11.0) th/mm3 RBC 2.70 L (4.50-5.90) mil/mm3 Hgb 9.5 L (13.0-17.0) gm/dL Hct 30.0 L (39.0-51.0) % MCV 111.1 H (80.0-100.0) fL MCH 35.3 H (27.0-34.0) pg MCHC 31.8 L (32.0-36.0) % RDW 29.6 H (11.6-17.2) % Neut % (Auto) 85.3 H (16.0-70.0) % Neut # (Auto) 15.4 H (1.8-7.7) th/mm3 Seg Neuts % (Manual) 78 H (16-70) % Band Neuts % (Manual) 17 H (0-6) % Lymphocytes % (Manual) 4 L (9-44) % Abs Neuts (Manual) 17.1 H (1.8-7.7) th/mm3 Nucleated RBCs/100 WBC 1 H (0-0) /100 WBC Dohle Bodies Present H (None) Platelet Morphology Enlarged H (Normal) Basophilic Stippling Moderate H (None) Target Cells 1+ H (None) Tear Drop Cells 1+ H (None) Ovalocytes 1+ H (None) Acanthocytes (Spur) (None) Keratocytes (None) Chloride 109 H (98-107) meq/L Carbon Dioxide 20.6 L (21.0-32.0) meq/L BUN 48 H (7-18) mg/dL Creatinine 1.68 H (0.60-1.30) mg/dL Estimated GFR 39 L (>89) mL/min Random Glucose 236 H (74-106) mg/dL Lactic Acid (0.4-2.0) mmol/L Calcium 7.9 L (8.5-10.1) mg/dL Phosphorus (2.5-4.9) mg/dL Total Bilirubin 1.3 H (0.2-1.0) mg/dL Albumin 2.6 L (3.4-5.0) g/dL Lipase 1097 H (73-393) U/L TSH (0.358-3.740) uIU/mL Urine Clarity Cloudy H (Clear) Urine Protein 100 H (Neg-Trace) mg/dL Urine Occult Blood Moderate H (Negative) Urine RBC 20 H (0-3) /hpf Urine WBC 21 H (0-5) /hpf Amorphous Sediment Few H (None) /hpf Urine Bacteria Few H (None) /hpf Urine Mucus Few H (Occasional) /lpf Short CBC 10/20/17 Range/Units 01:30 WBC 18.0 H (4.0-11.0) th/mm3 Hgb 9.5 L (13.0-17.0) gm/dL Hct 30.0 L (39.0-51.0) % Plt Count 174 (150-450) th/mm3 BMP 10/20/17 01:30 Sodium 141 Potassium 3.8 Chloride 109 H Carbon Dioxide 20.6 L BUN 48 H Creatinine 1.68 H Calcium 7.9 L Liver Function 10/19/17 10/20/17 Range/Units 05:51 01:30 Total Bilirubin 1.8 H 1.3 H (0.2-1.0) mg/dL AST 17 (15-37) U/L ALT 42 (12-78) U/L Alkaline Phosphatase 80 63 (45-117) U/L Albumin 2.6 L (3.4-5.0) g/dL Urine 10/19/17 Range/Units 17:15 Urine Color Saira (Yellw/Straw) Urine Clarity Cloudy H (Clear) Urine pH 5.0 (5.0-8.5) Ur Specific [place] 1.031 (1.002-1.035) Urine Protein 100 H (Neg-Trace) mg/dL Urine Glucose (UA) 50 (Negative) mg/dL - Imaging Impressions Abdomen/Pelvis CT 10/19/17 00:00 CONCLUSION: 1. Induration in the mesentery and abutting the undersurface of the pancreas. There is also induration in the posterior right pararenal space. This distribution is most suggestive of pancreatitis. 2. New dilatation the distal esophagus, stomach, and proximal small bowel. Contrast is seen to reach the colon. This could be a asymmetric ileus. Some degree of obstruction cannot be excluded. 3. Mild bilateral pleural effusions with accompanying areas of atelectasis or consolidation being worse on the right. 4. Pneumobilia. The previously seen biliary duct stent has been removed. The common bile duct is dilated measuring 1.8 cm. The patient is status post cholecystectomy. Abdomen X-Ray 10/19/17 10:44 CONCLUSION: No radiographic evidence of ileus or bowel obstruction. No evidence of free air. Abdomen X-Ray 10/20/17 06:00 CONCLUSION: Nasogastric tube tip not clearly seen. Mildly distended bowel loop in the left lower quadrant. Otherwise nonspecific Chest X-Ray 10/20/17 06:00 CONCLUSION: Slight interval worsening in aeration Physical Exam Vital signs: Vital Signs 10/19/17 08:00 10/19/17 09:00 10/19/17 10:00 Temperature 98.3 F Pulse Rate 106 H 102 H 100 H Respiratory Rate 20 Blood Pressure 131/77 Pulse Oximetry 95 10/19/17 11:00 10/19/17 12:00 10/19/17 13:00 Temperature 98.8 F Pulse Rate 106 H 106 H 98 H Respiratory Rate 18 Blood Pressure 135/69 Pulse Oximetry 94 L 10/19/17 14:00 10/19/17 15:00 10/19/17 16:00 Temperature 97.8 F Pulse Rate 100 H 103 H 104 H Respiratory Rate 16 Blood Pressure 128/61 Pulse Oximetry 10/19/17 17:00 10/19/17 17:24 10/19/17 19:00 Temperature Pulse Rate 105 H 105 H 110 H Respiratory Rate Blood Pressure Pulse Oximetry 97 10/19/17 20:00 10/19/17 21:00 10/19/17 22:00 Temperature 98.7 F Pulse Rate 110 H 103 H 100 H Respiratory Rate Blood Pressure 145/65 H Pulse Oximetry 97 10/19/17 23:00 10/20/17 00:00 10/20/17 01:00 Temperature 98.8 F Pulse Rate 90 90 92 H Respiratory Rate Blood Pressure 127/62 Pulse Oximetry 93 L 93 L 10/20/17 02:00 10/20/17 03:00 10/20/17 04:00 Temperature 98.2 F Pulse Rate 90 84 84 Respiratory Rate Blood Pressure 118/62 Pulse Oximetry 96 96 10/20/17 05:00 10/20/17 06:00 Temperature Pulse Rate 79 95 H Respiratory Rate Blood Pressure Pulse Oximetry Intake & Output 10/19/17 10/20/17 10/20/17 18:59 06:59 18:59 Intake Total 290 / 290 2198 / 2198 Output Total 350 / 350 2250 / 2250 Balance -60 / -60 -52 / -52 Weight 95.9 kg Intake: IV 50 / 50 1358 / 1358 NS Inj 1,000 ML @ 125 mls/hr IV 1258 / 1258 .CONT .Q8H K[facility]K Rx#:[id number] Zosyn 3.375 GM Premix 50 ML @ 50 / 50 100 / 100 100 mls/hr IV.SIG Q6H KIRK Rx#: [id number] Oral 240 / 240 840 / 840 Output: Urine Amount (Catheter) 350 / 350 450 / 450 Indwelling Urethral Catheter 350 / 350 450 / 450 Gastric Drainage 1800 / 1800 Left Nare Nasogastric Tube 1800 / 1800 Other: Date of Last Bowel Movement 10/19/17 Narrative: GENERAL: WN, WD elderly male sitting up in bed in [facility]. SKIN: Warm and dry. Ecchymoses over upper extremities. HEENT: NG tube in place with 600 cc dark output. HEART: IRR no appreciable murmurs. LUNGS: Anterior lung sounds CTAB without wheezes or crackles. Lateral lung sounds diminished. ABDOMEN: Hypoactive BS. Distended abdomen. No significant TTP. EXTREMITIES: No LE edema. Diminished pedal pulses. NEURO: Awake and alert. - Urinary Catheter Management Indwelling Urethral Catheter Cath placed during this visit: yes Reason for continuing: Chronic Urinary Retention Insertion date: 10/17/17 Insertion time: 17:30 Assessment and Plan - Assessment (1) Pancreatitis Code(s): K85.90 - Acute pancreatitis without necrosis or infection, unspecified Status: Acute (2) Ileus, postoperative Code(s): K91.89 - Other postprocedural complications and disorders of digestive system; K56.7 - Ileus, unspecified Status: Acute - Assessment and Plan 87 YOWM with history of choledocholithiasis and cholangitis status post recent ERCP admitted on 10/17 with progressive abdominal pain. CT A/P as well as lipase level indicate acute pancreatitis. 1. Acute pancreatitis - Lipase 9833 on admission - CT A/P showing mod peripancreatic inflammatory stranding and persistent intra- and extrahepatic ductal dilation with CBD stent in place - GI consulted and patient underwent repeat ERCP yesterday (10/18) with stent removal, sphincterotomy, and stone removal - Pain control - Continue Zosyn - Lipase continues to be elevated this AM at 1097 but trending down (was 9833 on 10/17, pre-ERCP) - Liquid diet per GI - NS at 150 ml/hr (increased) 2. Abdominal distention/ileus - Likely secondary to severe pancreatitis, recent ERCP - Stat KUB today showed no ileus or SBO yesterday but repeat this morning shows some loops of distended colon in LLQ and CT A/P done yesterday evening demonstrating distention of the distal esophagus, stomach, and proximal SI which could represent a partial ileus - Overnight, patient developed N/V. NGT placed and general surgery was consulted - GI following - NPO - Pain control - Compazine PRN nausea (avoid Zofran secondary to QT prolongation since giving a macrolide to cover for PNA) - Encourage OOB, working with PT - Incentive spirometer 3. Leukocytosis - WBC up to 24.9 yesterday and down to 18 this morning - Tachycardic with HR low 100s - Stat lactic acid done yesterday evening elevated at 3.5 then repeat 6 hours later down to 1.9 - Continue Zosyn - Add Azithromycin to cover for worsening basilar infiltrate seen on CXR yesterday - Likely a combination of pancreatitis, recent ERCP, and possible PNA 4. SHARRI - Creatinine continuing to rise: 1.27>1.37 and >1.68 this AM - Vanco had been D/C'd yesterday due to its nephrotoxic effects - U/A done yesterday with elevated protein and moderate blood, cath pending - BUN 48 and BUN:Cr ratio ~28 likely indicating a pre-renal component though intrinsic injury can be compounding - Increase IVF to 150 ml/hr - Monitor closely - Renally dose meds - Avoid nephrotoxic agents - If creatinine continues to worsen will obtain nephrology consult 5. Hematuria - Hernandez bag showing pink/red urine - U/A showing protein and moderate blood - CT A/P unremarkable for bladder/renal system - Possibly secondary to Hernandez - Monitor H&H 6. PNA - Patient has already been on Zosyn and will add Azithromycin - Supplemental O2 - DuoNeb PRN 7. Anemia - Likely chronic - MCV elevated - Check folate, B12, and iron studies 8. Atrial fibrillation - HR 80-110s - Telemetry showing atrial fibrillation - EKG on admission showing 1st degree AV block right RBBB - AFIB may be from acute illness but patient follows with Dr. Elkins so will consult FEN: - NS at 150 ml/hr - Monitor and replete electrolytes as needed - NPO DVT prophylaxis: Heparin
[2017-10-20] MEDS: Heparin - SQ 10,000 UNITS/ML Vial SQ SCH ×2 (09:00→21:05)
[2017-10-20] MEDS: Senna/Docusate Sodium 8.6/50 MG Tablet PO SCH ×2 (09:00→21:05)
[2017-10-20] MEDS: Azithromycin Inj 500 MG in Sodium Chlor 0.9% Inj 250 ML IV.SIG SCH (09:00)
[2017-10-20 10:41] LABS: Iron 47 mcg/dL (65-175)
[2017-10-20 11:06] LABS: % Iron Saturation 31.1 % (20-50); Ferritin 1232 ng/mL (26-388); Total Iron Binding Capacity 151 mcg/dL (250-450); Vitamin B12 682 pg/mL (193-986)
[2017-10-20] MEDS ORDERED: Piperacil/Tazo 2.25 GM Premix 50 ML IV.SIG SCH (12:00)
--- NOTE | 2017-10-20 13:27 | P.PNGI ---
Subjective Interval history: Pt is resting in bed. NG tube placed over night to suction with copious amounts of output in suction canister. Pt reports some improvement in abdominal distention today. GS consult pending. <Alley Ruiz - Last Filed: 10/20/17 13:20> Physical Exam Vital signs: Vital Signs 10/19/17 14:00 10/19/17 15:00 10/19/17 16:00 Temperature 97.8 F Pulse Rate 100 H 103 H 104 H Respiratory Rate 16 Blood Pressure 128/61 Pulse Oximetry 10/19/17 17:00 10/19/17 17:24 10/19/17 19:00 Temperature Pulse Rate 105 H 105 H 110 H Respiratory Rate Blood Pressure Pulse Oximetry 97 10/19/17 20:00 10/19/17 21:00 10/19/17 22:00 Temperature 98.7 F Pulse Rate 110 H 103 H 100 H Respiratory Rate Blood Pressure 145/65 H Pulse Oximetry 97 10/19/17 23:00 10/20/17 00:00 10/20/17 01:00 Temperature 98.8 F Pulse Rate 90 90 92 H Respiratory Rate Blood Pressure 127/62 Pulse Oximetry 93 L 93 L 10/20/17 02:00 10/20/17 03:00 10/20/17 04:00 Temperature 98.2 F Pulse Rate 90 84 84 Respiratory Rate Blood Pressure 118/62 Pulse Oximetry 96 96 10/20/17 05:00 10/20/17 06:00 10/20/17 07:00 Temperature Pulse Rate 79 95 H 87 Respiratory Rate Blood Pressure Pulse Oximetry 10/20/17 07:54 10/20/17 08:00 10/20/17 09:00 Temperature 97.7 F Pulse Rate 87 89 Respiratory Rate 18 Blood Pressure 132/60 Pulse Oximetry 93 L 94 L 10/20/17 11:00 10/20/17 12:00 Temperature 97.7 F Pulse Rate 99 H 99 H Respiratory Rate 18 Blood Pressure Pulse Oximetry 92 L Intake & Output 10/19/17 10/20/17 10/20/17 18:59 06:59 18:59 Intake Total 290 / 290 2198 / 2198 742 / 742 Output Total 350 / 350 2250 / 2250 Balance -60 / -60 -52 / -52 742 / 742 Weight 95.9 kg Intake: IV 50 / 50 1358 / 1358 742 / 742 NS Inj 1,000 ML @ 150 mls/hr IV 1258 / 1258 742 / 742 .CONT .Q6H40M [facility] Rx#:[id number] Zosyn 3.375 GM Premix 50 ML @ 50 / 50 100 / 100 100 mls/hr IV.SIG Q6H [facility] Rx#: [id number] Oral 240 / 240 840 / 840 Output: Urine Amount (Catheter) 350 / 350 450 / 450 Indwelling Urethral Catheter 350 / 350 450 / 450 Gastric Drainage 1800 / 1800 Left Nare Nasogastric Tube 1800 / 1800 Other: Date of Last Bowel Movement 10/19/17 10/19/17 - Constitutional no acute distress - Routine HEENT Exam Head: Present: normocephalic, atraumatic - Routine Respiratory Exam Absent: accessory muscle use - Routine Cardiovascular Exam Present: irregularly irregular - Routine Abdominal Exam Present: soft, normoactive bowel sounds, distended. Absent: tenderness - Routine Skin Exam Present: dry, warm - Routine Neurological Exam Present: alert, oriented X3 - Urinary Catheter Management Indwelling Urethral Catheter Cath placed during this visit: yes Reason for continuing: Chronic Urinary Retention Insertion date: 10/17/17 Insertion time: 17:30 <Alley Ruiz - Last Filed: 10/20/17 13:20> Vital signs: Vital Signs 10/19/17 14:00 10/19/17 15:00 10/19/17 16:00 Temperature 97.8 F Pulse Rate 100 H 103 H 104 H Respiratory Rate 16 Blood Pressure 128/61 Pulse Oximetry 10/19/17 17:00 10/19/17 17:24 10/19/17 19:00 Temperature Pulse Rate 105 H 105 H 110 H Respiratory Rate Blood Pressure Pulse Oximetry 97 10/19/17 20:00 10/19/17 21:00 10/19/17 22:00 Temperature 98.7 F Pulse Rate 110 H 103 H 100 H Respiratory Rate Blood Pressure 145/65 H Pulse Oximetry 97 10/19/17 23:00 10/20/17 00:00 10/20/17 01:00 Temperature 98.8 F Pulse Rate 90 90 92 H Respiratory Rate Blood Pressure 127/62 Pulse Oximetry 93 L 93 L 10/20/17 02:00 10/20/17 03:00 10/20/17 04:00 Temperature 98.2 F Pulse Rate 90 84 84 Respiratory Rate Blood Pressure 118/62 Pulse Oximetry 96 96 10/20/17 05:00 10/20/17 06:00 10/20/17 07:00 Temperature Pulse Rate 79 95 H 92 H Respiratory Rate Blood Pressure Pulse Oximetry 10/20/17 07:54 10/20/17 08:00 10/20/17 09:00 Temperature 97.7 F Pulse Rate 87 89 Respiratory Rate 18 Blood Pressure 132/60 Pulse Oximetry 93 L 94 L 10/20/17 10:00 10/20/17 11:00 10/20/17 12:00 Temperature 97.7 F Pulse Rate 90 99 H 99 H Respiratory Rate 18 Blood Pressure Pulse Oximetry 92 L 10/20/17 13:00 Temperature Pulse Rate 98 H Respiratory Rate Blood Pressure Pulse Oximetry Intake & Output 10/19/17 10/20/17 10/20/17 18:59 06:59 18:59 Intake Total 290 / 290 2198 / 2198 742 / 742 Output Total 350 / 350 2250 / 2250 Balance -60 / -60 -52 / -52 742 / 742 Weight 95.9 kg Intake: IV 50 / 50 1358 / 1358 742 / 742 NS Inj 1,000 ML @ 150 mls/hr IV 1258 / 1258 742 / 742 .CONT .Q6H40M [facility] Rx#:[id number] Zosyn 3.375 GM Premix 50 ML @ 50 / 50 100 / 100 100 mls/hr IV.SIG Q6H [facility] Rx#: [id number] Oral 240 / 240 840 / 840 Output: Urine Amount (Catheter) 350 / 350 450 / 450 Indwelling Urethral Catheter 350 / 350 450 / 450 Gastric Drainage 1800 / 1800 Left Nare Nasogastric Tube 1800 / 1800 Other: Date of Last Bowel Movement 10/19/17 10/19/17 - Urinary Catheter Management Indwelling Urethral Catheter Cath placed during this visit: no <Roseline Odonnell - Last Filed: 10/20/17 13:58> Results - Labs CBC & Chem 7: 10/20/17 01:30 10/20/17 01:30 Laboratory Results - last 24 hr 10/19/17 10/19/17 10/20/17 16:50 17:15 01:30 WBC RBC Hgb Hct MCV MCH MCHC RDW Plt Count MPV Prelim Diff (Auto) Neut % (Auto) Lymph % (Auto) Lyman % (Auto) Eos % (Auto) Baso % (Auto) Neut # (Auto) Lymph # (Auto) Lyman # (Auto) Eos # (Auto) Baso # (Auto) WBC Differential Seg Neuts % (Manual) Band Neuts % (Manual) Lymphocytes % (Manual) Monocytes % (Manual) Abs Neuts (Manual) Nucleated RBCs/100 WBC Differential Comment Dohle Bodies Platelet Estimate Platelet Morphology Basophilic Stippling Target Cells Tear Drop Cells Ovalocytes Sodium Potassium Chloride Carbon Dioxide Anion Gap BUN Creatinine Estimated GFR Random Glucose Lactic Acid 3.6 H 1.9 Calcium Magnesium Iron TIBC % Saturation Ferritin Total Bilirubin AST ALT Alkaline Phosphatase Total Protein Albumin Lipase Vitamin B12 Folate Urine Color Saira Urine Clarity Cloudy H Urine pH 5.0 Ur Specific [place] 1.031 Urine Protein 100 H Urine Glucose (UA) 50 Urine Ketones Negative Urine Occult Blood Moderate H Urine Nitrate Negative Urine Bilirubin Negative Urine Urobilinogen Less than 2 Ur Leukocyte Esterase Negative Urine RBC 20 H Urine WBC 21 H Amorphous Sediment Few H Urine Bacteria Few H Urine Mucus Few H Micro UA Comment Cath-culture ind Urine Culture Comments Cath-cult indicated 10/20/17 10/20/17 10/20/17 01:30 01:30 01:30 WBC 18.0 H RBC 2.70 L Hgb 9.5 L Hct 30.0 L MCV 111.1 H MCH 35.3 H MCHC 31.8 L RDW 29.6 H Plt Count 174 MPV 8.8 Prelim Diff (Auto) Slide review pending Neut % (Auto) 85.3 H Lymph % (Auto) 9.2 Lyman % (Auto) 5.1 Eos % (Auto) 0.0 Baso % (Auto) 0.4 Neut # (Auto) 15.4 H Lymph # (Auto) 1.7 Lyman # (Auto) 0.9 Eos # (Auto) 0.0 Baso # (Auto) 0.1 WBC Differential Manual diff final Seg Neuts % (Manual) 78 H Band Neuts % (Manual) 17 H Lymphocytes % (Manual) 4 L Monocytes % (Manual) 1 Abs Neuts (Manual) 17.1 H Nucleated RBCs/100 WBC 1 H Differential Comment . Dohle Bodies Present H Platelet Estimate Normal Platelet Morphology Enlarged H Basophilic Stippling Moderate H Target Cells 1+ H Tear Drop Cells 1+ H Ovalocytes 1+ H Sodium 141 Potassium 3.8 Chloride 109 H Carbon Dioxide 20.6 L Anion Gap 11 BUN 48 H Creatinine 1.68 H Estimated GFR 39 L Random Glucose 236 H Lactic Acid Calcium 7.9 L Magnesium 2.2 Iron 47 L TIBC 151 L % Saturation 31.1 Ferritin 1232 H Total Bilirubin 1.3 H AST 17 ALT 42 Alkaline Phosphatase 63 Total Protein 6.5 Albumin 2.6 L Lipase 1097 H Vitamin B12 682 Folate Greater than 20.0 H Urine Color Urine Clarity Urine pH Ur Specific [place] Urine Protein Urine Glucose (UA) Urine Ketones Urine Occult Blood Urine Nitrate Urine Bilirubin Urine Urobilinogen Ur Leukocyte Esterase Urine RBC Urine WBC Amorphous Sediment Urine Bacteria Urine Mucus Micro UA Comment Urine Culture Comments Microbiology 10/18/17 19:21 Blood - Peripheral Aerobic Blood Culture - Preliminary No growth in 2 days 10/18/17 19:21 Blood - Peripheral Anaerobic Blood Culture - Preliminary No growth in 2 days 10/18/17 19:15 Blood - Peripheral Aerobic Blood Culture - Preliminary No growth in 2 days 10/18/17 19:15 Blood - Peripheral Anaerobic Blood Culture - Preliminary No growth in 2 days 10/17/17 05:50 Blood - Peripheral Aerobic Blood Culture - Preliminary No growth in 3 days 10/17/17 05:50 Blood - Peripheral Anaerobic Blood Culture - Preliminary No growth in 3 days 10/17/17 05:55 Blood - Peripheral Aerobic Blood Culture - Preliminary No growth in 3 days 10/17/17 05:55 Blood - Peripheral Anaerobic Blood Culture - Preliminary No growth in 3 days 10/19/17 17:15 Catheterized Urine Urine Culture - Preliminary No growth in 24 hours 10/17/17 13:37 Catheterized Urine Urine Culture - Final No growth in 48 hours - Imaging Impressions Abdomen/Pelvis CT 10/19/17 00:00 CONCLUSION: 1. Induration in the mesentery and abutting the undersurface of the pancreas. There is also induration in the posterior right pararenal space. This distribution is most suggestive of pancreatitis. 2. New dilatation the distal esophagus, stomach, and proximal small bowel. Contrast is seen to reach the colon. This could be a asymmetric ileus. Some degree of obstruction cannot be excluded. 3. Mild bilateral pleural effusions with accompanying areas of atelectasis or consolidation being worse on the right. 4. Pneumobilia. The previously seen biliary duct stent has been removed. The common bile duct is dilated measuring 1.8 cm. The patient is status post cholecystectomy. Abdomen X-Ray 10/20/17 06:00 CONCLUSION: Nasogastric tube tip not clearly seen. Mildly distended bowel loop in the left lower quadrant. Otherwise nonspecific Chest X-Ray 10/20/17 06:00 CONCLUSION: Slight interval worsening in aeration - Procedures ERCP PROCEDURE REPORT EXAM DATE: 10/18/2017 PATIENT NAME: Bulmaro Guillen MR #: [id number] BIRTHDATE: 1930 ATTENDING: Roseline Odonnell MD ORDER #: [id number] BARREL CHARRER: Roge Villaseñor and Liana Holguin STATUS: inpatient INDICATIONS: The patient is a 87 yr old male here for an ERCP due to established ascending cholangitis PROCEDURE PERFORMED: ERCP with sphincterotomy/papillotomy ERCP with removal of calculus/calculi MEDICATIONS: None and Per Anesthesia. CONSENT: The patient understands the risks and benefits of the procedure and understands that these risks include, but are not limited to: sedation, allergic reaction, infection, perforation and/or bleeding. Alternative means of evaluation and treatment include, among others: physical exam, x-rays, and/or surgical intervention. The patient elects to proceed with this endoscopic procedure. medical equipment was checked for proper function. Hand hygiene and appropriate measures for infection prevention was taken. After the risks, benefits and alternatives of the procedure were thoroughly explained, Informed was verified, confirmed and timeout was successfully executed by the treatment team. With the patient in left semi-prone position, medications were administered intravenously.The Pentax [id number] was passed from the mouth into the esophagus and further advanced from the esophagus into the stomach. From stomach scope was directed to the second portion of the duodenum. Major papilla was aligned with the duodenoscope. The scope position was confirmed fluoroscopically. Rest of the findings/therapeutics are given below. The scope was then completely withdrawn from the patient and the procedure completed. The pulse, BP, and O2 saturation were monitored and documented by the physician and the nursing staff throughout the entire procedure. The patient was cared for as planned according to standard protocol. The patient was then discharged to recovery in stable condition and with appropriate post procedure care. The ampulla was located the second portion of the duodenum. A previously placed stent was seen extending from the orifice. The old stent was removed using a snare. There was a dilation of the common hepatic duct and CBD. Three filling defects were seen in the distal common bile duct. With guidewire in the bile duct, a large biliary sphincterotomy was performed using the sphincterotome. Using a stone extraction balloon the bile duct was swept several times. Multiple stones were removed from the bile duct successfully. Using a stone extraction balloon the bile duct was swept several times. Multiple stone fragments were removed from the bile duct successfully. ADVERSE EVENT: There were no complications. IMPRESSIONS: 1. A previously placed ampulla stent was seen extending from the orifice, removed by snare. 2. 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 3. Sphincterotomy done. 4. Ductal sweep with balloon and irrigation removing multiple variable size stones, sludge and debris. 5. Normal inclusion cholangiogram afterward RECOMMENDATIONS: 1. Antibiotics 2. Liver enzymes REPEAT EXAM: NONE <Alley Ruiz - Last Filed: 10/20/17 13:20> - Labs CBC & Chem 7: 10/20/17 01:30 10/20/17 01:30 Laboratory Results - last 24 hr 10/19/17 10/19/17 10/20/17 16:50 17:15 01:30 WBC RBC Hgb Hct MCV MCH MCHC RDW Plt Count MPV Prelim Diff (Auto) Neut % (Auto) Lymph % (Auto) Lyman % (Auto) Eos % (Auto) Baso % (Auto) Neut # (Auto) Lymph # (Auto) Lyman # (Auto) Eos # (Auto) Baso # (Auto) WBC Differential Seg Neuts % (Manual) Band Neuts % (Manual) Lymphocytes % (Manual) Monocytes % (Manual) Abs Neuts (Manual) Nucleated RBCs/100 WBC Differential Comment Dohle Bodies Platelet Estimate Platelet Morphology Basophilic Stippling Target Cells Tear Drop Cells Ovalocytes Sodium Potassium Chloride Carbon Dioxide Anion Gap BUN Creatinine Estimated GFR Random Glucose Lactic Acid 3.6 H 1.9 Calcium Magnesium Iron TIBC % Saturation Ferritin Total Bilirubin AST ALT Alkaline Phosphatase Total Protein Albumin Lipase Vitamin B12 Folate Urine Color Saira Urine Clarity Cloudy H Urine pH 5.0 Ur Specific [place] 1.031 Urine Protein 100 H Urine Glucose (UA) 50 Urine Ketones Negative Urine Occult Blood Moderate H Urine Nitrate Negative Urine Bilirubin Negative Urine Urobilinogen Less than 2 Ur Leukocyte Esterase Negative Urine RBC 20 H Urine WBC 21 H Amorphous Sediment Few H Urine Bacteria Few H Urine Mucus Few H Micro UA Comment Cath-culture ind Urine Culture Comments Cath-cult indicated 10/20/17 10/20/17 10/20/17 01:30 01:30 01:30 WBC 18.0 H RBC 2.70 L Hgb 9.5 L Hct 30.0 L MCV 111.1 H MCH 35.3 H MCHC 31.8 L RDW 29.6 H Plt Count 174 MPV 8.8 Prelim Diff (Auto) Slide review pending Neut % (Auto) 85.3 H Lymph % (Auto) 9.2 Lyman % (Auto) 5.1 Eos % (Auto) 0.0 Baso % (Auto) 0.4 Neut # (Auto) 15.4 H Lymph # (Auto) 1.7 Lyman # (Auto) 0.9 Eos # (Auto) 0.0 Baso # (Auto) 0.1 WBC Differential Manual diff final Seg Neuts % (Manual) 78 H Band Neuts % (Manual) 17 H Lymphocytes % (Manual) 4 L Monocytes % (Manual) 1 Abs Neuts (Manual) 17.1 H Nucleated RBCs/100 WBC 1 H Differential Comment . Dohle Bodies Present H Platelet Estimate Normal Platelet Morphology Enlarged H Basophilic Stippling Moderate H Target Cells 1+ H Tear Drop Cells 1+ H Ovalocytes 1+ H Sodium 141 Potassium 3.8 Chloride 109 H Carbon Dioxide 20.6 L Anion Gap 11 BUN 48 H Creatinine 1.68 H Estimated GFR 39 L Random Glucose 236 H Lactic Acid Calcium 7.9 L Magnesium 2.2 Iron 47 L TIBC 151 L % Saturation 31.1 Ferritin 1232 H Total Bilirubin 1.3 H AST 17 ALT 42 Alkaline Phosphatase 63 Total Protein 6.5 Albumin 2.6 L Lipase 1097 H Vitamin B12 682 Folate Greater than 20.0 H Urine Color Urine Clarity Urine pH Ur Specific [place] Urine Protein Urine Glucose (UA) Urine Ketones Urine Occult Blood Urine Nitrate Urine Bilirubin Urine Urobilinogen Ur Leukocyte Esterase Urine RBC Urine WBC Amorphous Sediment Urine Bacteria Urine Mucus Micro UA Comment Urine Culture Comments Microbiology 10/18/17 19:21 Blood - Peripheral Aerobic Blood Culture - Preliminary No growth in 2 days 10/18/17 19:21 Blood - Peripheral Anaerobic Blood Culture - Preliminary No growth in 2 days 10/18/17 19:15 Blood - Peripheral Aerobic Blood Culture - Preliminary No growth in 2 days 10/18/17 19:15 Blood - Peripheral Anaerobic Blood Culture - Preliminary No growth in 2 days 10/17/17 05:50 Blood - Peripheral Aerobic Blood Culture - Preliminary No growth in 3 days 10/17/17 05:50 Blood - Peripheral Anaerobic Blood Culture - Preliminary No growth in 3 days 10/17/17 05:55 Blood - Peripheral Aerobic Blood Culture - Preliminary No growth in 3 days 10/17/17 05:55 Blood - Peripheral Anaerobic Blood Culture - Preliminary No growth in 3 days 10/19/17 17:15 Catheterized Urine Urine Culture - Preliminary No growth in 24 hours 10/17/17 13:37 Catheterized Urine Urine Culture - Final No growth in 48 hours - Imaging Impressions Abdomen/Pelvis CT 10/19/17 00:00 CONCLUSION: 1. Induration in the mesentery and abutting the undersurface of the pancreas. There is also induration in the posterior right pararenal space. This distribution is most suggestive of pancreatitis. 2. New dilatation the distal esophagus, stomach, and proximal small bowel. Contrast is seen to reach the colon. This could be a asymmetric ileus. Some degree of obstruction cannot be excluded. 3. Mild bilateral pleural effusions with accompanying areas of atelectasis or consolidation being worse on the right. 4. Pneumobilia. The previously seen biliary duct stent has been removed. The common bile duct is dilated measuring 1.8 cm. The patient is status post cholecystectomy. Abdomen X-Ray 10/20/17 06:00 CONCLUSION: Nasogastric tube tip not clearly seen. Mildly distended bowel loop in the left lower quadrant. Otherwise nonspecific Chest X-Ray 10/20/17 06:00 CONCLUSION: Slight interval worsening in aeration <Roseline Odonnell - Last Filed: 10/20/17 13:58> Assessment and Plan (1) Cholangitis Status: Acute Code(s): K83.0 - Cholangitis (2) Elevated LFTs Status: Acute Code(s): R94.5 - Abnormal results of liver function studies (3) Pancreatitis Status: Acute Code(s): K85.90 - Acute pancreatitis without necrosis or infection, unspecified - Plan Assessment: - Elevated LFTs and pancreatitis with recent ERCP with findings of biliary sludge and bile duct dilatation S/P balloon sweep and plastic stent placement on 10/11- Pt with history of choledocholithiasis and cholangitis. History of cholecystectomy. Complaining of: upper abdominal pain that began at 9pm last night after dinner at 8pm, constant, described as "hunger pains". Denies associated fever, chills, nausea, vomiting. Denies history of pancreatitis. Denies ETOH. CT abdomen and pelvis W IV contrast (10/17) Moderate peripancreatic inflammatory stranding consistent with pancreatitis. Pancreas enhances uniformly and there is no peripancreatic fluid collection at this time. Interval placement of CBD stent with persistent intra and extra hepatic ductal dilatation. Focal adynamic ileus in the proximal jejunum secondary to the peripancreatic inflammatory changes Pt unable to have MRCP due to pacemaker (10/19) Pt reports feeling uncomfortable today and abdominal distention. Also has been burping a lot. Denies nausea, vomiting. (+) BM today S/P ERCP yesterday --> A previously placed ampulla stent was seen extending from the orifice, removed by snare. 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 Sphincterotomy done. Ductal sweep with balloon and irrigation removing multiple variable size stones, sludge and debris. Normal inclusion cholangiogram afterward Pt seen over an hour ago- STAT KUB ordered due to distention- KUB shows no ileus or obstruction. No improvement in leukocytosis, remains on Zosyn, afebrile. No repeat lipase from today, T bili remains the same. AST, ALT and alk phos WNL (10/20) Pt with NG tube to LIWS placed last night with copious amounts of output in suction canister. He reports some mild improvement in abdominal distention. Denies nausea, vomiting. No BM. Repeat CT abdomen and pelvis done last night noted --> Consistent with pancreatitis, new dilatation in the distal esophagus, stomach, and proximal small bowel, contrast is seen to reach the colon which could be asymmetric ileus, some degree of obstruction cannot be excluded. Pneumobilia, previously seen biliary duct stent has been removed, CBD is dilated measuring 1.8 cm. Surgery consult placed, pending consult. Lipase trending down some. White count improving, pt remains on Zosyn, afebrile. Plan: NPO OK for ice chips NGT to LIWS Repeat KUB in AM GS consult pending ? SBFT pending GS consult Further recommendations based on clinical course Pt has been seen and examined by myself and Dr. Odonnell and this note is written on his behalf <Alley Ruiz - Last Filed: 10/20/17 13:20> (1) Cholangitis Status: Acute Code(s): K83.0 - Cholangitis (2) Elevated LFTs Status: Acute Code(s): R94.5 - Abnormal results of liver function studies (3) Pancreatitis Status: Acute Code(s): K85.90 - Acute pancreatitis without necrosis or infection, unspecified - Attending Attestation Agree with above, abdomen softer than yesterday, labs improving, CT showing evidence of pancreatitis. Further recommendations to follow. <Roseline Odonnell - Last Filed: 10/20/17 13:58>
--- NOTE | 2017-10-20 21:15 | MB ---
cc: Jaya Elkins MD DATE: 10/20/2017 REASON FOR CONSULTATION: Atrial fibrillation, ventricular response. HISTORY OF PRESENT ILLNESS: Mr. Guillen is an 87-year-old gentleman with history of hip fracture, AV block with permanent pacemaker inserted, previous gallbladder surgery, was admitted due to cholelithiasis and cholangitis. ERCP was performed during hospitalization. CT scan indicates a pancreatitis. He has abdominal distention. He subsequently developed atrial fibrillation with ventricular response. I was consulted for evaluation and management. The chart was reviewed. The patient was evaluated. ALLERGIES: ASPIRIN AND OXAPROZIN. SOCIAL HISTORY: The gentleman negative for smoking and drinking. FAMILY HISTORY: Noncontributory to his current medical condition. MEDICATIONS: He is currently on Zithromax, he is on heparin, he is on morphine, he is on Protonix, piperacillin, tazobactam and temazepam. REVIEW OF SYSTEMS: The patient referred abdominal discomfort, but no chest pain, no fever. PHYSICAL EXAMINATION: GENERAL: Alert, fully oriented. Follow verbal education. VITAL SIGNS: Blood pressure 146/63, pulse 93, respiratory rate 20. HEENT: The patient has a nasogastric tube on suction. LUNGS: Ventilated. CARDIOVASCULAR: S1, S2, irregular. No gallop, no tachycardia. ABDOMEN: Distended. No bowel movement. EXTREMITIES: No edema. ELECTROCARDIOGRAM: Indicates atrial fibrillation. A complete bundle branch block. Diffuse ST changes and PVCs. LABORATORY DATA: Hemoglobin is 9.5, white blood cell 18, coming down from 24 yesterday. Potassium 3.8, creatinine 1.68, sodium 141, magnesium 2.2. Lipase is close to 1100. ASSESSMENT AND RECOMMENDATIONS: Mr. Guillen currently has abdominal distention and discomfort. 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 He has a recent ERCP. He has atrial fibrillation, but the rate is controlled. At this point, there is no need to initiate negative control with medication. I discussed the case extensively with him and his . They had a lot of questions about pancreatitis and the ERCP. I referred them to the GI and managing physicians for further information about his condition. For now, as mentioned before, I will keep him on the current management. If necessary, IV negative chronotropic medication will be initiated. I will follow him during hospitalization. MD JOSHUA Solomon , 08:48 PM , 09:13 PM
[2017-10-21] MEDS: Piperacil/Tazo 3.375 GM Premix 50 ML IV.SIG SCH ×5 (04:41→23:16)
[2017-10-21] MEDS: Sod Chloride 0.9% Inj 1,000 ML IV.CONT SCH (04:45)
[2017-10-21 05:28] LABS: Hematocrit 23.5 % (39.0-51.0); Hemoglobin 7.8 gm/dL (13.0-17.0); Mean Corpuscular HGB Conc 33.1 % (32.0-36.0); Mean Corpuscular Hemoglobin 36.4 pg (27.0-34.0); Mean Corpuscular Volume 109.9 fL (80.0-100.0); Mean Platelet Volume 8.6 fL (7.0-11.0); Platelet Count 172 th/mm3 (150-450); Red Blood Count 2.13 mil/mm3 (4.50-5.90); Red Cell Distribution Width 29.1 % (11.6-17.2); White Blood Count 15.6 th/mm3 (4.0-11.0)
[2017-10-21 05:40] LABS: Calcium 8.2 mg/dL (8.5-10.1); Carbon Dioxide 21.7 meq/L (21.0-32.0); Potassium 3.7 meq/L (3.5-5.1)
--- NOTE | 2017-10-21 09:31 | P.PNFP ---
Subjective Interval history: Pt seen and examined for f/u pancreatitis and ileus. AFVSS. Reports he is feeling a little better today though still not passing gas or BM. Denies abdominal comfort though abdomen remains distended. Denies N/V. Wants to eat. Denies CP, SOB. Results - Labs Result diagrams: 10/21/17 05:13 10/21/17 05:13 Abnormal lab results 10/20/17 10/21/17 10/21/17 Range/Units 01:30 05:13 05:13 WBC 15.6 H (4.0-11.0) th/mm3 RBC 2.13 L (4.50-5.90) mil/mm3 Hgb 7.8 L (13.0-17.0) gm/dL Hct 23.5 L (39.0-51.0) % MCV 109.9 H (80.0-100.0) fL MCH 36.4 H (27.0-34.0) pg RDW 29.1 H (11.6-17.2) % Sodium 146 H (136-145) meq/L Chloride 113 H (98-107) meq/L BUN 42 H (7-18) mg/dL Creatinine 1.43 H (0.60-1.30) mg/dL Estimated GFR 47 L (>89) mL/min Random Glucose 151 H (74-106) mg/dL Calcium 8.2 L (8.5-10.1) mg/dL Iron 47 L (65-175) mcg/dL TIBC 151 L (250-450) mcg/dL Ferritin 1232 H (26-388) ng/mL Folate Greater than 20.0 H (3.1-17.5) ng/mL Short CBC 10/21/17 Range/Units 05:13 WBC 15.6 H (4.0-11.0) th/mm3 Hgb 7.8 L (13.0-17.0) gm/dL Hct 23.5 L (39.0-51.0) % Plt Count 172 (150-450) th/mm3 BMP 10/21/17 05:13 Sodium 146 H Potassium 3.7 Chloride 113 H Carbon Dioxide 21.7 BUN 42 H Creatinine 1.43 H Calcium 8.2 L Physical Exam Vital signs: Vital Signs 10/20/17 10:00 10/20/17 11:00 10/20/17 12:00 Temperature 97.7 F Pulse Rate 90 99 H 99 H Respiratory Rate 18 Blood Pressure Pulse Oximetry 92 L 10/20/17 13:00 10/20/17 14:00 10/20/17 15:00 Temperature Pulse Rate 98 H 98 H 93 H Respiratory Rate Blood Pressure Pulse Oximetry 10/20/17 16:00 10/20/17 17:00 10/20/17 18:00 Temperature 97.6 F Pulse Rate 93 H 98 H 97 H Respiratory Rate 16 Blood Pressure 146/63 H Pulse Oximetry 93 L 10/20/17 19:00 10/20/17 20:00 10/20/17 20:40 Temperature 98.7 F Pulse Rate 109 H 109 H Respiratory Rate Blood Pressure 159/69 H Pulse Oximetry 93 L 95 10/20/17 21:00 10/20/17 22:00 10/20/17 23:00 Temperature Pulse Rate 87 89 95 H Respiratory Rate Blood Pressure Pulse Oximetry 93 L 10/21/17 00:00 10/21/17 01:00 10/21/17 02:00 Temperature 98.9 F Pulse Rate 95 H 94 H 95 H Respiratory Rate Blood Pressure 146/66 H Pulse Oximetry 93 L 10/21/17 03:00 10/21/17 04:00 10/21/17 05:00 Temperature 97.9 F Pulse Rate 83 88 91 H Respiratory Rate Blood Pressure 153/67 H Pulse Oximetry 94 L 94 L 10/21/17 06:00 Temperature Pulse Rate 95 H Respiratory Rate Blood Pressure Pulse Oximetry Intake & Output 10/20/17 10/21/17 10/21/17 18:59 06:59 18:59 Intake Total 982 / 982 2595 / 2595 Output Total 2100 / 2100 1875 / 1875 Balance -1118 / -1118 720 / 720 Weight 95.7 kg Intake: IV 742 / 742 2475 / 2475 NS Inj 1,000 ML @ 150 mls/hr IV 742 / 742 2375 / 2375 .CONT .Q6H40M [facility] Rx#:[id number] Zosyn 3.375 GM Premix 50 ML @ 100 / 100 100 mls/hr IV.SIG Q6H [facility] Rx#: [id number] Oral 240 / 240 120 / 120 Output: Urine Amount (Catheter) 600 / 600 675 / 675 Indwelling Urethral Catheter 600 / 600 675 / 675 Gastric Drainage 1500 / 1500 1200 / 1200 Left Nare Nasogastric Tube 1500 / 1500 1200 / 1200 Other: Date of Last Bowel Movement 10/19/17 Narrative: GENERAL: WN, WD elderly male sitting up in bed in NAD. Appears weak and fatigued. SKIN: Warm and dry. Ecchymoses over upper extremities. HEENT: NG tube in place with bilious output. HEART: Appears to be in sinus rhythm this morning with RRR. LUNGS: Anterior lung sounds CTAB without wheezes or crackles. Lateral lung sounds diminished. ABDOMEN: Hypoactive BS. Distended abdomen. No significant TTP. EXTREMITIES: Trace LE edema. Diminished pedal pulses. NEURO: Awake and alert. - Urinary Catheter Management Indwelling Urethral Catheter Cath placed during this visit: yes Reason for continuing: Acute urinary retention Insertion date: 10/17/17 Insertion time: 17:30 Assessment and Plan - Assessment (1) Pancreatitis Code(s): K85.90 - Acute pancreatitis without necrosis or infection, unspecified Status: Acute (2) Ileus, postoperative Code(s): K91.89 - Other postprocedural complications and disorders of digestive system; K56.7 - Ileus, unspecified Status: Acute - Assessment and Plan 87 YOWM with history of choledocholithiasis and cholangitis status post recent ERCP admitted on 10/[address] A/P as well as lipase level indicate acute pancreatitis. Course has been complicated by ileus. 1. Abdominal distention/ileus - Likely secondary to severe pancreatitis, recent ERCP - CT A/P 10/19 demonstrating distention of the distal esophagus, stomach, and proximal SI which could represent a partial ileus - NGT to LIS - GI following - General surgery consulted - NPO - Pain control - Compazine PRN nausea (avoid Zofran secondary to QT prolongation since giving a macrolide to cover for PNA) - Encourage OOB, working with PT - Incentive spirometer - Check KUB this morning 2. Acute pancreatitis - Lipase 9833 on admission, down to 1097 yesterday morning - CT A/P showing mod peripancreatic inflammatory stranding and persistent intra- and extrahepatic ductal dilation with CBD stent in place - GI consulted and patient underwent repeat ERCP 10/18 with stent removal, sphincterotomy, and stone removal - Pain control - Continue Zosyn - NS at 150 ml/hr 3. Leukocytosis - Trending down - Likely secondary to combination of PNA, pancreatitis, recent ERCP - Continue Zosyn 4. SHARRI - Creatinine starting to trend down: 1.27>1.37>1.68>1.43 - U/A with elevated protein and moderate blood - Elevated BUN:Cr ratio likely indicating a pre-renal component though intrinsic injury can be compounding - Continue IVF at 150 ml/hr - Monitor closely - Renally dose meds - Avoid nephrotoxic agents 5. Hematuria - Light doug urine - U/A showing protein and moderate blood - CT A/P unremarkable for bladder/renal system - Possibly secondary to Hernandez trauma - H&H trending down - Hold heparin 6. PNA - Continue Zosyn and Azithromycin - Supplemental O2 - DuoNeb PRN 7. Anemia - Acute on chronic - H&H trending down (7.8 from 10.8 two days ago) - MCV elevated - Folate and B12 normal - Iron studies show increased ferritin, low iron, and low TIBC (compatible with anemia of chronic disease) - Holding heparin in light of hematuria and dropping hemoglobin though urine now light doug - Monitor closely - Transfuse if Hb<7 - GI following 8. Atrial fibrillation - Telemetry showing atrial fibrillation - EKG on admission showing 1st degree AV block right RBBB - AFIB may be from acute illness - Dr. Elkins following patient - Currently rate-controlled for the most part FEN: - NS at 150 ml/hr - Monitor and replete electrolytes as needed - NPO DVT prophylaxis: SCDs, holding chemical anticoagulation for dropping Hb Discharge Planning: Pending clinical improvement
[2017-10-21] MEDS: Senna/Docusate Sodium 8.6/50 MG Tablet PO SCH ×3 (09:37→21:52)
[2017-10-21] MEDS: Heparin - SQ 10,000 UNITS/ML Vial SQ SCH (09:38)
[2017-10-21] MEDS: Azithromycin Inj 500 MG in Sodium Chlor 0.9% Inj 250 ML IV.SIG SCH (09:41)
--- NOTE | 2017-10-21 09:53 | MB ---
cc: James Mcbride MD DATE: 10/20/2017 REASON FOR CONSULTATION: Ileus, acute pancreatitis, history of choledocholithiasis. HISTORY OF PRESENT ILLNESS: The patient is an 87-year-old male who has a history of choledocholithiasis. The patient also had gallstone pancreatitis and underwent treatment for this in regards to biliary stent along with a laparoscopic cholecystectomy. The patient did relatively well, however, developed increasing abdominal pain. He actually had an occlusion of his stent due to biliary sludge, for which a stent was exchanged. The patient presented 2 days ago to the hospital due to increasing lethargy and abdominal pain. He had further workup, including CT scan showing acute pancreatitis. He has also had further intervention including a repeat ERCP, with a finding of stent occlusion, sludge, for which a repeat sphincterotomy was done and a stent exchanged. He was noted to have a lipase of 9833 and again noted to have epigastric pain radiating to his back. It was 7/10. Currently, it is 8/10 and he has been evaluated in the hospital. He was developing increased abdominal distention for which he had CT scan findings of severe ileus along with pancreatitis. Recommendation was for NG tube placement last night with a 2300 mL output. He states improvement of his abdominal pain and distention from this. PAST MEDICAL HISTORY: Choledocholithiasis, reflux, hip fracture, pacemaker. PAST SURGICAL HISTORY: Corneal transplant, hernia repair, cholecystectomy, ERCP with stent placement MEDICATIONS: See EMR FAMILY HISTORY: Father with acute PA. Mother with PA. SOCIAL HISTORY: Denies smoking, ETOH or IVDA. ALLERGIES: ASPIRIN, OXAPROZIN REVIEW OF SYSTEMS: GENERAL: Denies fevers, chills. HEENT: Denies eye pain, ear pain. NECK: Denies any swelling or pain. HEART: Denies palpitations or chest pain. ABDOMEN: Complains of abdominal pain and distention. GENITOURINARY: Denies dysuria or hematuria. ENDOCRINE: Denies polyuria or polydipsia. INTEGUMENT: Denies any masses or lesions. PHYSICAL EXAMINATION: VITAL SIGNS: Temperature 97.6, pulse 93, respirations 16, blood pressure 146/63, saturation 92%. HEENT, NECK: Pupils equal, round, reactive. Neck supple. Trachea midline. OG tube in place. LUNGS: Bilateral expansion, clear. HEART: S1, S2. Regular. ABDOMEN: Distended, soft, mild tenderness to palpation. No rebound. EXTREMITIES: Warm and well perfused. NEUROLOGIC: Answering questions appropriately, moving all extremities. INTEGUMENT: No masses or lesions. PSYCHIATRIC: Appropriate insight, appropriate judgment. LABORATORY, DIAGNOSTIC DATA: Current WBC 18, hemoglobin 9.5, hematocrit 30, platelets 174. Sodium 141, potassium 3.8, chloride 109, BUN 48, creatinine 1.6, AST 17, ALT 22, T-bilirubin 1.3, lipase 1097, previous 9833. CT scan reviewed by myself, showing diffuse pancreatitis, mesentery, blood in pancreas, perirenal spaces. Dilation distal esophagus, an ileus-like pattern. Mild bilateral pleural effusions, pneumobilia. ASSESSMENT: The patient is an 87-year-old male who has history of gallstone pancreatitis, status post cholecystectomy, endoscopic retrograde cholangiopancreatogram, stent placement, stent occlusion, replacement. The patient developed significant abdominal distention, with severe ileus versus obstruction. Currently, with nasogastric tube decompression. PLAN: After full clinical, radiologic, laboratory workup, the patient with the above named issues, at this point, I agree with NG tube to low intermittent suction, check and correct any electrolyte abnormalities. Continue to trend lipase with bowel rest, IV fluids, pain control. Continue monitoring bilirubin and will continue to defer to GI for biliary stent management. We will continue to follow. Thank you for the consultation. MD RONNY Higgins/TOMMY , 10:12 PM , 10:54 PM CHELSEA
--- NOTE | 2017-10-21 12:09 | ECG ---
Date Performed: 10/20/2017 Time Performed: 01:11:06 PTAGE: 87 years EKG: Atrial fibrillation with PVC(s) or aberrant ventricular conduction Right bundle branch bloc k Possible anterior infarct - age undetermined Low QRS voltages in precordial leads Abnormal ECG PREVIOUS TRACING : 10/17/2017 04.05 DOCTOR: Jaya Elkins Interpretating Date/Time 10/21/2017 12:04:12
--- NOTE | 2017-10-21 13:27 | ECHRPT ---
Indication: atrial fib CONCLUSIONS Normal left ventricular size and wall thickness. The left ventricular systolic function is normal wi th an estimated ejection fraction in the range of 60-65%. No definite wall motion abnormalities. Trileaflet aortic valve. Mild aortic leaflet sclerosis. There is mild tricuspid regurgitation. The estimated pulmonary arterial pressure is 40 mmHg. BP: / HR: Rhythm: Atrial fibrillation Technical Quality:Excellent FINDINGS LEFT VENTRICLE Normal left ventricular size and wall thickness. The left ventricular systolic function is normal wi th an estimated ejection fraction in the range of 60-65%. No definite wall motion abnormalities. RIGHT VENTRICLE Normal right ventricular size and systolic function. LEFT ATRIUM The left atrial size is normal. RIGHT ATRIUM There is a pacemaker wire present in the right atrial cavity. ATRIAL SEPTUM Normal atrial septal thickness without atrial level shunting by limited color doppler interrogation. AORTA The aortic root and proximal ascending aorta are normal in size on limited imaging. MITRAL VALVE Structurally normal mitral valve. No mitral valve stenosis or regurgitation. AORTIC VALVE Trileaflet aortic valve. Mild aortic leaflet sclerosis. TRICUSPID VALVE Structurally normal tricuspid valve. There is mild tricuspid regurgitation. The estimated pulmonary arterial pressure is 40 mmHg. PULMONARY VALVE The pulmonary valve is not well visualized. VESSELS The inferior vena cava was not well visualized. PERICARDIUM No pericardial effusion. Jae Espitia MD (Electronically Signed) Final Date:21 October 2017 13:26
[2017-10-21] MEDS: KCL 10 mEq/D5W/NaCl 0.45% Inj 1,000 ML IV.CONT SCH ×3 (14:36→23:15)
--- NOTE | 2017-10-21 14:46 | P.PNGI ---
Subjective Interval history: Pt very lethargic today. Still with no BM and not passing gas. Continues to have large amount of output from NG. <Alley Ruiz - Last Filed: 10/21/17 14:41> Physical Exam Vital signs: Vital Signs 10/20/17 15:00 10/20/17 16:00 10/20/17 17:00 Temperature 97.6 F Pulse Rate 93 H 93 H 98 H Respiratory Rate 16 Blood Pressure 146/63 H Pulse Oximetry 93 L 10/20/17 18:00 10/20/17 19:00 10/20/17 20:00 Temperature 98.7 F Pulse Rate 97 H 109 H 109 H Respiratory Rate Blood Pressure 159/69 H Pulse Oximetry 93 L 10/20/17 20:40 10/20/17 21:00 10/20/17 22:00 Temperature Pulse Rate 87 89 Respiratory Rate Blood Pressure Pulse Oximetry 95 10/20/17 23:00 10/21/17 00:00 10/21/17 01:00 Temperature 98.9 F Pulse Rate 95 H 95 H 94 H Respiratory Rate Blood Pressure 146/66 H Pulse Oximetry 93 L 93 L 10/21/17 02:00 10/21/17 03:00 10/21/17 04:00 Temperature 97.9 F Pulse Rate 95 H 83 88 Respiratory Rate Blood Pressure 153/67 H Pulse Oximetry 94 L 94 L 10/21/17 05:00 10/21/17 06:00 10/21/17 07:00 Temperature 98.7 F Pulse Rate 91 H 95 H 88 Respiratory Rate 24 Blood Pressure 153/67 H Pulse Oximetry 95 10/21/17 08:00 10/21/17 09:00 10/21/17 10:00 Temperature Pulse Rate 90 88 84 Respiratory Rate Blood Pressure Pulse Oximetry 10/21/17 11:00 Temperature Pulse Rate 84 Respiratory Rate Blood Pressure Pulse Oximetry Intake & Output 10/20/17 10/21/17 10/21/17 18:59 06:59 18:59 Intake Total 1232 / 1232 2595 / 2595 675 / 675 Output Total 2099 / 2099 1875 / 1875 Balance -868 / -868 720 / 720 675 / 675 Weight 95.7 kg Intake: IV 992 / 992 2475 / 2475 675 / 675 NS Inj 1,000 ML @ 150 mls/hr IV 742 / 742 2375 / 2375 625 / 625 .CONT .Q6H40M [facility] Rx#:[id number] Azithromycin Inj 500 MG In NS 250 / 250 Inj 250 ML @ 250 mls/hr IV.SIG Q24H [facility] Rx#:[id number] Zosyn 3.375 GM Premix 50 ML @ 100 / 100 50 / 50 100 mls/hr IV.SIG Q6H [facility] Rx#: [id number] Oral 240 / 240 120 / 120 Output: Urine Amount (Catheter) 600 / 600 675 / 675 Indwelling Urethral Catheter 600 / 600 675 / 675 Gastric Drainage 1500 / 1500 1200 / 1200 Left Nare Nasogastric Tube 1500 / 1500 1200 / 1200 Other: Date of Last Bowel Movement 10/19/17 10/18/17 - Constitutional no acute distress - Routine HEENT Exam Head: Present: normocephalic, atraumatic - Routine Respiratory Exam Absent: accessory muscle use - Routine Cardiovascular Exam Present: RRR - Routine Abdominal Exam Present: distended, firm. Absent: normoactive bowel sounds, tenderness Comments: hypoactive bowel sounds - Routine Skin Exam Present: dry, warm - Urinary Catheter Management Indwelling Urethral Catheter Cath placed during this visit: yes Reason for continuing: Acute urinary retention Insertion date: 10/17/17 Insertion time: 17:30 <Alley Ruiz - Last Filed: 10/21/17 14:41> Vital signs: Vital Signs 10/20/17 20:00 10/20/17 20:40 10/20/17 21:00 Temperature 98.7 F Pulse Rate 109 H 87 Respiratory Rate Blood Pressure 159/69 H Pulse Oximetry 93 L 95 10/20/17 22:00 10/20/17 23:00 10/21/17 00:00 Temperature 98.9 F Pulse Rate 89 95 H 95 H Respiratory Rate Blood Pressure 146/66 H Pulse Oximetry 93 L 93 L 10/21/17 01:00 10/21/17 02:00 10/21/17 03:00 Temperature Pulse Rate 94 H 95 H 83 Respiratory Rate Blood Pressure Pulse Oximetry 94 L 10/21/17 04:00 10/21/17 05:00 10/21/17 06:00 Temperature 97.9 F Pulse Rate 88 91 H 95 H Respiratory Rate Blood Pressure 153/67 H Pulse Oximetry 94 L 10/21/17 07:00 10/21/17 08:00 10/21/17 09:00 Temperature 98.7 F Pulse Rate 88 90 88 Respiratory Rate 24 Blood Pressure 153/67 H Pulse Oximetry 95 10/21/17 10:00 10/21/17 11:00 10/21/17 12:00 Temperature 97.9 F Pulse Rate 84 89 84 Respiratory Rate 20 Blood Pressure 148/64 H Pulse Oximetry 98 10/21/17 13:00 10/21/17 14:00 10/21/17 15:00 Temperature 98 F Pulse Rate 80 86 80 Respiratory Rate 16 Blood Pressure 151/64 H Pulse Oximetry 94 L 10/21/17 16:00 10/21/17 17:00 Temperature Pulse Rate 84 84 Respiratory Rate Blood Pressure Pulse Oximetry Intake & Output 10/21/17 10/21/17 10/22/17 06:59 18:59 06:59 Intake Total 2595 / 2595 675 / 675 Output Total 1875 / 1875 Balance 720 / 720 675 / 675 Weight 95.7 kg Intake: IV 2475 / 2475 675 / 675 NS Inj 1,000 ML @ 150 mls/hr IV 2375 / 2375 625 / 625 .CONT .Q6H40M [facility] Rx#:[id number] Zosyn 3.375 GM Premix 50 ML @ 100 / 100 50 / 50 100 mls/hr IV.SIG Q6H [facility] Rx#: [id number] Oral 120 / 120 Output: Urine Amount (Catheter) 675 / 675 Indwelling Urethral Catheter 675 / 675 Gastric Drainage 1200 / 1200 Left Nare Nasogastric Tube 1200 / 1200 Other: Date of Last Bowel Movement 10/18/17 - Urinary Catheter Management Indwelling Urethral Catheter Cath placed during this visit: no <Genaro Bravo E - Last Filed: 10/21/17 19:24> Results - Labs CBC & Chem 7: 10/21/17 05:13 10/21/17 05:13 Laboratory Results - last 24 hr 10/21/17 10/21/17 05:13 05:13 WBC 15.6 H RBC 2.13 L Hgb 7.8 L Hct 23.5 L MCV 109.9 H MCH 36.4 H MCHC 33.1 RDW 29.1 H Plt Count 172 MPV 8.6 Sodium 146 H Potassium 3.7 Chloride 113 H Carbon Dioxide 21.7 Anion Gap 11 BUN 42 H Creatinine 1.43 H Estimated GFR 47 L Random Glucose 151 H Calcium 8.2 L Microbiology 10/18/17 19:21 Blood - Peripheral Aerobic Blood Culture - Preliminary No growth in 3 days 10/18/17 19:21 Blood - Peripheral Anaerobic Blood Culture - Preliminary No growth in 3 days 10/18/17 19:15 Blood - Peripheral Aerobic Blood Culture - Preliminary No growth in 3 days 10/18/17 19:15 Blood - Peripheral Anaerobic Blood Culture - Preliminary No growth in 3 days 10/17/17 05:50 Blood - Peripheral Aerobic Blood Culture - Preliminary No growth in 4 days 10/17/17 05:50 Blood - Peripheral Anaerobic Blood Culture - Preliminary No growth in 4 days 10/17/17 05:55 Blood - Peripheral Aerobic Blood Culture - Preliminary No growth in 4 days 10/17/17 05:55 Blood - Peripheral Anaerobic Blood Culture - Preliminary No growth in 4 days 10/19/17 17:15 Catheterized Urine Urine Culture - Final No growth in 48 hours - Procedures ERCP PROCEDURE REPORT EXAM DATE: 10/18/2017 PATIENT NAME: Bulmaro Guillen MR #: [id number] BIRTHDATE: 1930 ATTENDING: Roseline Odonnell MD ORDER #: [id number] RAILCAR FOREMAN: Roge Villaseñor and Liana Holguin STATUS: inpatient INDICATIONS: The patient is a 87 yr old male here for an ERCP due to established ascending cholangitis PROCEDURE PERFORMED: ERCP with sphincterotomy/papillotomy ERCP with removal of calculus/calculi MEDICATIONS: None and Per Anesthesia. CONSENT: The patient understands the risks and benefits of the procedure and understands that these risks include, but are not limited to: sedation, allergic reaction, infection, perforation and/or bleeding. Alternative means of evaluation and treatment include, among others: physical exam, x-rays, and/or surgical intervention. The patient elects to proceed with this endoscopic procedure. medical equipment was checked for proper function. Hand hygiene and appropriate measures for infection prevention was taken. After the risks, benefits and alternatives of the procedure were thoroughly explained, Informed was verified, confirmed and timeout was successfully executed by the treatment team. With the patient in left semi-prone position, medications were administered intravenously.The [id number] was passed from the mouth into the esophagus and further advanced from the esophagus into the stomach. From stomach scope was directed to the second portion of the duodenum. Major papilla was aligned with the duodenoscope. The scope position was confirmed fluoroscopically. Rest of the findings/therapeutics are given below. The scope was then completely withdrawn from the patient and the procedure completed. The pulse, BP, and O2 saturation were monitored and documented by the physician and the nursing staff throughout the entire procedure. The patient was cared for as planned according to standard protocol. The patient was then discharged to recovery in stable condition and with appropriate post procedure care. The ampulla was located the second portion of the duodenum. A previously placed stent was seen extending from the orifice. The old stent was removed using a snare. There was a dilation of the common hepatic duct and CBD. Three filling defects were seen in the distal common bile duct. With guidewire in the bile duct, a large biliary sphincterotomy was performed using the sphincterotome. Using a stone extraction balloon the bile duct was swept several times. Multiple stones were removed from the bile duct successfully. Using a stone extraction balloon the bile duct was swept several times. Multiple stone fragments were removed from the bile duct successfully. ADVERSE EVENT: There were no complications. IMPRESSIONS: 1. A previously placed ampulla stent was seen extending from the orifice, removed by snare. 2. 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 3. Sphincterotomy done. 4. Ductal sweep with balloon and irrigation removing multiple variable size stones, sludge and debris. 5. Normal inclusion cholangiogram afterward RECOMMENDATIONS: 1. Antibiotics 2. Liver enzymes REPEAT EXAM: NONE <Alley Ruiz - Last Filed: 10/21/17 14:41> - Labs CBC & Chem 7: 10/21/17 14:35 10/21/17 05:13 Laboratory Results - last 24 hr 10/21/17 10/21/17 10/21/17 05:13 05:13 14:35 WBC 15.6 H RBC 2.13 L Hgb 7.8 L 7.9 L Hct 23.5 L 25.2 L MCV 109.9 H MCH 36.4 H MCHC 33.1 RDW 29.1 H Plt Count 172 MPV 8.6 Sodium 146 H Potassium 3.7 Chloride 113 H Carbon Dioxide 21.7 Anion Gap 11 BUN 42 H Creatinine 1.43 H Estimated GFR 47 L Random Glucose 151 H Calcium 8.2 L Microbiology 10/18/17 19:21 Blood - Peripheral Aerobic Blood Culture - Preliminary No growth in 3 days 10/18/17 19:21 Blood - Peripheral Anaerobic Blood Culture - Preliminary No growth in 3 days 10/18/17 19:15 Blood - Peripheral Aerobic Blood Culture - Preliminary No growth in 3 days 10/18/17 19:15 Blood - Peripheral Anaerobic Blood Culture - Preliminary No growth in 3 days 10/17/17 05:50 Blood - Peripheral Aerobic Blood Culture - Preliminary No growth in 4 days 10/17/17 05:50 Blood - Peripheral Anaerobic Blood Culture - Preliminary No growth in 4 days 10/17/17 05:55 Blood - Peripheral Aerobic Blood Culture - Preliminary No growth in 4 days 10/17/17 05:55 Blood - Peripheral Anaerobic Blood Culture - Preliminary No growth in 4 days 10/19/17 17:15 Catheterized Urine Urine Culture - Final No growth in 48 hours - Imaging Impressions Abdomen X-Ray 10/21/17 00:00 CONCLUSION: Dilated bowel in the left mid abdomen. It is not clear if this is colon or small bowel but may represent small intestine dilatation. This has increased from the prior study. Given the appearance on prior CT from 2 days ago this could represent some degree of small bowel obstruction. Therefore, suggest attention to this at follow-up imaging. <Genaro Bravo E - Last Filed: 10/21/17 19:24> Assessment and Plan (1) Cholangitis Status: Acute Code(s): K83.0 - Cholangitis (2) Elevated LFTs Status: Acute Code(s): R94.5 - Abnormal results of liver function studies (3) Pancreatitis Status: Acute Code(s): K85.90 - Acute pancreatitis without necrosis or infection, unspecified - Plan Assessment: - Elevated LFTs and pancreatitis with recent ERCP with findings of biliary sludge and bile duct dilatation S/P balloon sweep and plastic stent placement on 10/11- Pt with history of choledocholithiasis and cholangitis. History of cholecystectomy. Complaining of: upper abdominal pain that began at 9pm last night after dinner at 8pm, constant, described as "hunger pains". Denies associated fever, chills, nausea, vomiting. Denies history of pancreatitis. Denies ETOH. CT abdomen and pelvis W IV contrast (10/17) Moderate peripancreatic inflammatory stranding consistent with pancreatitis. Pancreas enhances uniformly and there is no peripancreatic fluid collection at this time. Interval placement of CBD stent with persistent intra and extra hepatic ductal dilatation. Focal adynamic ileus in the proximal jejunum secondary to the peripancreatic inflammatory changes S/P ERCP (10/18) --> A previously placed ampulla stent was seen extending from the orifice, removed by snare. 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 Sphincterotomy done. Ductal sweep with balloon and irrigation removing multiple variable size stones, sludge and debris. Normal inclusion cholangiogram afterward Repeat CT abdomen and pelvis (10/19) --> Consistent with pancreatitis, new dilatation in the distal esophagus, stomach, and proximal small bowel, contrast is seen to reach the colon which could be asymmetric ileus, some degree of obstruction cannot be excluded. Pneumobilia, previously seen biliary duct stent has been removed, CBD is dilated measuring 1.8 cm. 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 Abdomen remains distended, firm. Denies BM and passing gas. NGT to LIWS with continued large amounts of output. Leukocytosis improving, pt remains on Zosyn. No repeat LFTs or lipase from today Plan: NPO OK for ice chips NGT to LIWS Repeat KUB from today pending GS recommendations appreciated ? SBFT pending GS consult Continue to monitor LFTs and lipase Further recommendations based on clinical course Pt has been seen and examined by myself and Dr. Bravo and this note is written on his behalf <Alley Ruiz - Last Filed: 10/21/17 14:41> (1) Cholangitis Status: Acute Code(s): K83.0 - Cholangitis (2) Elevated LFTs Status: Acute Code(s): R94.5 - Abnormal results of liver function studies (3) Pancreatitis Status: Acute Code(s): K85.90 - Acute pancreatitis without necrosis or infection, unspecified - Attending Attestation Patient was seen and examined Agree with above Continue with current supportive care Monitor labs patient presenting with cholangitis was noted to have choledocholithiasis and pancreatitis and at present probably has ileus which is probably multifactorial If clinical situation persists tomorrow unchanged then we will pursue a small bowel follow-through with Gastrografin <Genaro Bravo E - Last Filed: 10/21/17 19:24>
--- NOTE | 2017-10-21 16:12 | XR ---
EXAM DATE: 10/21/2017 3:54 PM EDT AGE/SEX: 87 years / Male INDICATIONS: Ileus CLINICAL DATA: This is the patient's subsequent encounter. Patient reports that signs and symptoms h ave been present for 4 - 6 days and indicates a pain score of 5/10. MEDICAL/SURGICAL HISTORY: Pancreatitis. None. COMPARISON: [facility] [place], ABDOMEN 1V KUB, 10/20/2017. [facility] [place], CT ABDOMEN & PELVIS W/O CONTRAST, 10/19/2017. . FINDINGS: 2 supine frontal views of the abdomen demonstrate air distended bowel with a dilated segment measuri ng up to 8 cm in the left mid abdomen. This segment may represent small bowel or colon. This segment has increased in size compared to 6 cm previously. Cholecystectomy clips are present in clips overlie the inferior pelvis. Right proximal femur hardware is present. There are degenerative changes of the lumbar spine. CONCLUSION: Dilated bowel in the left mid abdomen. It is not clear if this is colon or small bowel but may repres ent small intestine dilatation. This has increased from the prior study. [facility] this could represent some degree of small bowel obstruction. Therefore, suggest attention to this at follow-up imaging. Electronically signed by: Jesus Luciano MD 10/21/2017 4:10 PM EDT
--- NOTE | 2017-10-21 16:50 | P.DIET ---
Nutritional Evaluation Type of nutrition evaluation: initial Nutrition consult regarding: TPN/PPN ([facility] for TPN recs) Subjective Subjective Comments: Pt has been npo/liquids only since admission on 10/17. Objective - Diagnosis Acute Panceatitis, Recent ERCP - Objective % IBW: 118 (IBW = 178#) Body Weight Used for Calculations: Actual (95.7 kg) Energy Needs - Lower Range (kCal/kg): 25 Energy Needs - Upper Range (kCal/kg): 30 Lower Limit kCal/kg (kCals): 2,393 Upper Limit kCal/kg (kCals): 2,871 Lower Limit Protein Factor (Grams per Kg): 1.0 Upper Limit Protein Factor (Grams per Kg): 1.5 Lower Protein Needs (Protein): 96 Upper Protein Needs (Protein): 144 Dietitian Reviewed in Medical Record: Curent medications, Intake & Output, Labs , Medical history Diet Order: NPO Objective Comments: Labs: Na 146, BUN/creat 42/1.43, Est GFR 47, glu 151, lipase 1097 Assessment Assessment: Pt is at high nutrition risk 2' to dx and npo status. He is (-) BM, (-) flatus and has distended abdomen, NG-T is to LIWS and has high output. To meet needs with TPN, assuming he has access, recommend Clinimix E 5/25 @ 83 mls/hr with 20 % lipids @ 10 mls/hr to provide a total of 2580 kcals and [address] will monitor. Request weekly TG. Recommendations: TPN: CLINIMIX E 5/25 @ 83 mls/hr LIPIDS: 20% lipids @ 10 mls/hr Monitor glucose closely Request TG Dietitian to Monitor: Lab values, Intake & Output, TPN/PPN tolerance, Weight change, Diet advancement, Medical course
--- NOTE | 2017-10-21 17:03 | P.PN ---
Subjective Interval history: Feeling uncomfortable Physical Exam Vital signs: Vital Signs 10/20/17 17:00 10/20/17 18:00 10/20/17 19:00 Temperature Pulse Rate 98 H 97 H 109 H Respiratory Rate Blood Pressure Pulse Oximetry 10/20/17 20:00 10/20/17 20:40 10/20/17 21:00 Temperature 98.7 F Pulse Rate 109 H 87 Respiratory Rate Blood Pressure 159/69 H Pulse Oximetry 93 L 95 10/20/17 22:00 10/20/17 23:00 10/21/17 00:00 Temperature 98.9 F Pulse Rate 89 95 H 95 H Respiratory Rate Blood Pressure 146/66 H Pulse Oximetry 93 L 93 L 10/21/17 01:00 10/21/17 02:00 10/21/17 03:00 Temperature Pulse Rate 94 H 95 H 83 Respiratory Rate Blood Pressure Pulse Oximetry 94 L 10/21/17 04:00 10/21/17 05:00 10/21/17 06:00 Temperature 97.9 F Pulse Rate 88 91 H 95 H Respiratory Rate Blood Pressure 153/67 H Pulse Oximetry 94 L 10/21/17 07:00 10/21/17 08:00 10/21/17 09:00 Temperature 98.7 F Pulse Rate 88 90 88 Respiratory Rate 24 Blood Pressure 153/67 H Pulse Oximetry 95 10/21/17 10:00 10/21/17 11:00 Temperature Pulse Rate 84 84 Respiratory Rate Blood Pressure Pulse Oximetry Intake & Output 10/20/17 10/21/17 10/21/17 18:59 06:59 18:59 Intake Total 1232 / 1232 2595 / 2595 675 / 675 Output Total 2100 / 2100 1875 / 1875 Balance -868 / -868 720 / 720 675 / 675 Weight 95.7 kg Intake: IV 992 / 992 2475 / 2475 675 / 675 NS Inj 1,000 ML @ 150 mls/hr IV 742 / 742 2375 / 2375 625 / 625 .CONT .Q6H40M [facility] Rx#:[id number] Azithromycin Inj 500 MG In NS 250 / 250 Inj 250 ML @ 250 mls/hr IV.SIG Q24H [facility] Rx#:[id number] Zosyn 3.375 GM Premix 50 ML @ 100 / 100 50 / 50 100 mls/hr IV.SIG Q6H [facility] Rx#: [id number] Oral 240 / 240 120 / 120 Output: Urine Amount (Catheter) 600 / 600 675 / 675 Indwelling Urethral Catheter 600 / 600 675 / 675 Gastric Drainage 1500 / 1500 1200 / 1200 Left Nare Nasogastric Tube 1500 / 1500 1200 / 1200 Other: Date of Last Bowel Movement 10/19/17 10/18/17 - Constitutional mild distress - Routine HEENT Exam Head: Present: normocephalic Eye: Present: PERRL Comments: Nasogastric tube - Routine Neck Exam Present: normal carotid upstroke - Routine Respiratory Exam Present: CTA bilaterally - Routine Cardiovascular Exam Present: RRR, S1, S2 - Routine Abdominal Exam Present: distended Comments: Distended abdomen. No peristalsis - Routine Extremities Exam Present: normal capillary refill - Routine Neurological Exam Present: alert, oriented X3 - Urinary Catheter Management Indwelling Urethral Catheter Cath placed during this visit: yes Reason for continuing: Acute urinary retention Insertion date: 10/17/17 Insertion time: 17:30 Results - Labs CBC & Chem 7: 10/21/17 05:13 10/21/17 05:13 Laboratory Results - last 24 hr 10/21/17 10/21/17 05:13 05:13 WBC 15.6 H RBC 2.13 L Hgb 7.8 L Hct 23.5 L MCV 109.9 H MCH 36.4 H MCHC 33.1 RDW 29.1 H Plt Count 172 MPV 8.6 Sodium 146 H Potassium 3.7 Chloride 113 H Carbon Dioxide 21.7 Anion Gap 11 BUN 42 H Creatinine 1.43 H Estimated GFR 47 L Random Glucose 151 H Calcium 8.2 L Microbiology 10/18/17 19:21 Blood - Peripheral Aerobic Blood Culture - Preliminary No growth in 3 days 10/18/17 19:21 Blood - Peripheral Anaerobic Blood Culture - Preliminary No growth in 3 days 10/18/17 19:15 Blood - Peripheral Aerobic Blood Culture - Preliminary No growth in 3 days 10/18/17 19:15 Blood - Peripheral Anaerobic Blood Culture - Preliminary No growth in 3 days 10/17/17 05:50 Blood - Peripheral Aerobic Blood Culture - Preliminary No growth in 4 days 10/17/17 05:50 Blood - Peripheral Anaerobic Blood Culture - Preliminary No growth in 4 days 10/17/17 05:55 Blood - Peripheral Aerobic Blood Culture - Preliminary No growth in 4 days 10/17/17 05:55 Blood - Peripheral Anaerobic Blood Culture - Preliminary No growth in 4 days 10/19/17 17:15 Catheterized Urine Urine Culture - Final No growth in 48 hours - Imaging Impressions Abdomen X-Ray 10/21/17 00:00 CONCLUSION: Dilated bowel in the left mid abdomen. It is not clear if this is colon or small bowel but may represent small intestine dilatation. This has increased from the prior study. Given the appearance on prior CT from 2 days ago this could represent some degree of small bowel obstruction. Therefore, suggest attention to this at follow-up imaging. - Procedures ERCP PROCEDURE REPORT EXAM DATE: 10/18/2017 PATIENT NAME: Bulmaro Guillen MR #: [id number] BIRTHDATE: 1930 ATTENDING: Roseline Odonnell MD ORDER #: [id number] ELEVATORS INSPECTOR: Roge Villaseñor and Liana Holguin STATUS: inpatient INDICATIONS: The patient is a 87 yr old male here for an ERCP due to established ascending cholangitis PROCEDURE PERFORMED: ERCP with sphincterotomy/papillotomy ERCP with removal of calculus/calculi MEDICATIONS: None and Per Anesthesia. CONSENT: The patient understands the risks and benefits of the procedure and understands that these risks include, but are not limited to: sedation, allergic reaction, infection, perforation and/or bleeding. Alternative means of evaluation and treatment include, among others: physical exam, x-rays, and/or surgical intervention. The patient elects to proceed with this endoscopic procedure. medical equipment was checked for proper function. Hand hygiene and appropriate measures for infection prevention was taken. After the risks, benefits and alternatives of the procedure were thoroughly explained, Informed was verified, confirmed and timeout was successfully executed by the treatment team. With the patient in left semi-prone position, medications were administered intravenously.The Pentax [id number] was passed from the mouth into the esophagus and further advanced from the esophagus into the stomach. From stomach scope was directed to the second portion of the duodenum. Major papilla was aligned with the duodenoscope. The scope position was confirmed fluoroscopically. Rest of the findings/therapeutics are given below. The scope was then completely withdrawn from the patient and the procedure completed. The pulse, BP, and O2 saturation were monitored and documented by the physician and the nursing staff throughout the entire procedure. The patient was cared for as planned according to standard protocol. The patient was then discharged to recovery in stable condition and with appropriate post procedure care. The ampulla was located the second portion of the duodenum. A previously placed stent was seen extending from the orifice. The old stent was removed using a snare. There was a dilation of the common hepatic duct and CBD. Three filling defects were seen in the distal common bile duct. With guidewire in the bile duct, a large biliary sphincterotomy was performed using the sphincterotome. Using a stone extraction balloon the bile duct was swept several times. Multiple stones were removed from the bile duct successfully. Using a stone extraction balloon the bile duct was swept several times. Multiple stone fragments were removed from the bile duct successfully. ADVERSE EVENT: There were no complications. IMPRESSIONS: 1. A previously placed ampulla stent was seen extending from the orifice, removed by snare. 2. 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 3. Sphincterotomy done. 4. Ductal sweep with balloon and irrigation removing multiple variable size stones, sludge and debris. 5. Normal inclusion cholangiogram afterward RECOMMENDATIONS: 1. Antibiotics 2. Liver enzymes REPEAT EXAM: NONE Assessment and Plan - Assessment (1) Atypical chest pain Code(s): R07.89 - Other chest pain Status: Acute Plan: No chest pain reported Only abdominal pain Pancreatitis. Continue with current management (2) SVT (supraventricular tachycardia) Code(s): I47.1 - Supraventricular tachycardia Status: Acute Plan: In sinus rhythm HR control continue with current treatment case discussed with She has some questions about his condition. I advise her to ask surgeon or/and managing IM
[2017-10-21 17:29] LABS: Hematocrit 25.2 % (39.0-51.0); Hemoglobin 7.9 gm/dL (13.0-17.0)
[2017-10-22] MEDS: KCL 10 mEq/D5W/NaCl 0.45% Inj 1,000 ML IV.CONT SCH ×4 (01:18→19:46)
[2017-10-22] MEDS: Piperacil/Tazo 3.375 GM Premix 50 ML IV.SIG SCH ×3 (05:50→18:22)
[2017-10-22 06:15] LABS: Hematocrit 23.3 % (39.0-51.0); Hemoglobin 7.5 gm/dL (13.0-17.0); Mean Corpuscular HGB Conc 32.3 % (32.0-36.0); Mean Corpuscular Hemoglobin 35.5 pg (27.0-34.0); Mean Platelet Volume 9.1 fL (7.0-11.0); Platelet Count 179 th/mm3 (150-450); Red Blood Count 2.12 mil/mm3 (4.50-5.90); Red Cell Distribution Width 29.1 % (11.6-17.2); White Blood Count 12.8 th/mm3 (4.0-11.0)
[2017-10-22 06:36] LABS: Alanine Aminotransferase 27 U/L (12-78); Albumin 2.2 g/dL (3.4-5.0); Alkaline Phosphatase 67 U/L (45-117); Anion Gap 10 meq/L (5-15); Aspartate Aminotransferase 23 U/L (15-37); Blood Urea Nitrogen 29 mg/dL (7-18); Calcium 8.8 mg/dL (8.5-10.1); Carbon Dioxide 22.9 meq/L (21.0-32.0); Chloride 113 meq/L (98-107); Glomerular Filtration Rate 56 mL/min (>89); Glucose,Random 195 mg/dL (74-106); Lipase 2353 U/L (73-393); Potassium 3.6 meq/L (3.5-5.1); Sodium 146 meq/L (136-145); Total Protein 6.1 g/dL (6.4-8.2)
[2017-10-22] MEDS: Azithromycin Inj 500 MG in Sodium Chlor 0.9% Inj 250 ML IV.SIG SCH (09:23)
[2017-10-22] MEDS: Senna/Docusate Sodium 8.6/50 MG Tablet PO SCH ×2 (09:23→22:14)
--- NOTE | 2017-10-22 10:12 | P.PN ---
Physical Exam Vital signs: Vital Signs 10/21/17 11:00 10/21/17 12:00 10/21/17 13:00 Temperature 97.9 F Pulse Rate 89 84 80 Respiratory Rate 20 Blood Pressure 148/64 H Pulse Oximetry 98 10/21/17 14:00 10/21/17 15:00 10/21/17 16:00 Temperature 98 F Pulse Rate 86 80 84 Respiratory Rate 16 Blood Pressure 151/64 H Pulse Oximetry 94 L 10/21/17 17:00 10/21/17 18:00 10/21/17 19:00 Temperature 97.7 F Pulse Rate 84 80 92 H Respiratory Rate Blood Pressure 151/65 H Pulse Oximetry 95 10/21/17 20:00 10/21/17 21:00 10/21/17 22:00 Temperature Pulse Rate 82 84 88 Respiratory Rate Blood Pressure Pulse Oximetry 10/21/17 23:00 10/22/17 00:00 10/22/17 01:00 Temperature 98.7 F Pulse Rate 88 85 81 Respiratory Rate Blood Pressure 154/65 H Pulse Oximetry 95 10/22/17 02:00 10/22/17 03:00 10/22/17 04:00 Temperature 97.8 F Pulse Rate 80 81 81 Respiratory Rate Blood Pressure 159/68 H Pulse Oximetry 92 L 10/22/17 05:00 10/22/17 06:00 10/22/17 07:00 Temperature 98.2 F Pulse Rate 90 97 H 81 Respiratory Rate 20 Blood Pressure 143/65 H Pulse Oximetry 95 10/22/17 08:00 10/22/17 09:00 Temperature Pulse Rate 83 86 Respiratory Rate Blood Pressure Pulse Oximetry Intake & Output 10/21/17 10/22/17 10/22/17 18:59 06:59 18:59 Intake Total 975 / 975 2099 / 2099 Output Total 1750 / 1750 1300 / 1300 Balance -775 / -775 800 / 800 Weight 103 kg Intake: IV 975 / 975 2099 / 2099 D5W/1/2NS + KCL 10 mEq Inj , 2000 / 1999 000 ML @ 150 mls/hr IV.CONT . Q6H40M [facility] Rx#:[id number] NS Inj 1,000 ML @ 150 mls/hr IV 625 / 625 .CONT .Q6H40M [facility] Rx#:[id number] Azithromycin Inj 500 MG In NS 250 / 250 Inj 250 ML @ 250 mls/hr IV.SIG Q24H [facility] Rx#:[id number] Zosyn 3.375 GM Premix 50 ML @ 100 / 100 100 / 100 100 mls/hr IV.SIG Q6H [facility] Rx#: [id number] Output: Urine Amount (Catheter) 950 / 950 600 / 600 Indwelling Urethral Catheter 950 / 950 600 / 600 Gastric Drainage 800 / 800 700 / 700 Left Nare Nasogastric Tube 800 / 800 700 / 700 Other: Date of Last Bowel Movement 10/18/17 10/18/17 Narrative: Subjective Interval history: F/u pancreatitis and ileus. The patient is seen the chair lives with her and she to suction says he is feeling a little bit improved with NG tube. No nausea no vomiting. Also little bit of gas and had some diarrhea minimal amounts in the morning. Abdomen is distended and tympanic to percussion. Physical Exam GENERAL: WN, WD elderly male sitting up in bed in NAD. Appears weak and fatigued. SKIN: Warm and dry. Ecchymoses over upper extremities. HEENT: NG tube in place with bilious output. HEART: Appears to be in sinus rhythm this morning with RRR. LUNGS: Anterior lung sounds CTAB without wheezes or crackles. Lateral lung sounds diminished. ABDOMEN: Hypoactive BS. Distended abdomen, hyperresonant to percussion. No significant TTP. EXTREMITIES: Trace LE edema. Diminished pedal pulses. NEURO: Awake and alert. Assessment and Plan 87 YOWM with history of choledocholithiasis and cholangitis status post recent ERCP admitted on 10/[address] with [address] abdominal [address] A/P as well as lipase level indicate acute pancreatitis. Course has been complicated by ileus. 1. Abdominal distention/ileus - Likely secondary to severe pancreatitis, recent ERCP - CT A/P 10/19 demonstrating distention of the distal esophagus, stomach, and proximal SI which could represent a partial ileus - NGT to LIS - GI following - General surgery consulted - NPO - Pain control - Compazine PRN nausea (avoid Zofran secondary to QT prolongation since giving a macrolide to cover for PNA) - Encourage OOB, working with PT - Incentive spirometer - Check KUB this morning -Add simethicone 2. Acute pancreatitis - Lipase 9833 on admission, down to 1097 yesterday morning - CT A/P showing mod peripancreatic inflammatory stranding and persistent intra- and extrahepatic ductal dilation with CBD stent in place - GI consulted and patient underwent repeat ERCP 10/18 with stent removal, sphincterotomy, and stone removal - Pain control - Continue Zosyn - NS at 150 ml/hr 3. Leukocytosis - Trending down - Likely secondary to combination of PNA, pancreatitis, recent ERCP - Continue Zosyn 4. SHARRI - Creatinine starting to trend down: 1.27>1.37>1.68>1.43 - U/A with elevated protein and moderate blood - Elevated BUN:Cr ratio likely indicating a pre-renal component though intrinsic injury can be compounding - Continue IVF at 150 ml/hr - Monitor closely - Renally dose meds - Avoid nephrotoxic agents 5. Hematuria - Light doug urine - U/A showing protein and moderate blood - CT A/P unremarkable for bladder/renal system - Possibly secondary to Hernandez trauma - H&H trending down - Hold heparin 6. PNA - Continue Zosyn and Azithromycin - Supplemental O2 - DuoNeb PRN 7. Anemia - Acute on chronic - H&H trending down (7.8 from 10.8 two days ago) - MCV elevated - Folate and B12 normal - Iron studies show increased ferritin, low iron, and low TIBC (compatible with anemia of chronic disease) - Holding heparin in light of hematuria and dropping hemoglobin though urine now light doug - Monitor closely - Transfuse if Hb<7 - GI following 8. Atrial fibrillation - Telemetry showing atrial fibrillation - EKG on admission showing 1st degree AV block right RBBB - AFIB may be from acute illness - Dr. Elkins following patient - Currently rate-controlled for the most part FEN: - NS at 150 ml/hr - Monitor and replete electrolytes as needed - NPO DVT prophylaxis: SCDs, holding chemical anticoagulation for dropping Hb Discharge Planning: Pending clinical improvement Discussed with the patient, nurse, at bedside, Dr. Mcbride general surgery Patient is n.p.o. at this time with NG tube, will consider TPN in 2 days if is not improving still n.p.o. Discussed with Dr. Mcbride - Urinary Catheter Management Indwelling Urethral Catheter Cath placed during this visit: yes Reason for continuing: Acute urinary retention Insertion date: 10/17/17 Insertion time: 17:30 Results - Labs CBC & Chem 7: 10/22/17 05:33 10/22/17 05:33 Laboratory Results - last 24 hr 10/21/17 10/22/17 10/22/17 14:35 05:33 05:33 WBC 12.8 H RBC 2.12 L Hgb 7.9 L 7.5 L Hct 25.2 L 23.3 L MCV 110.0 H MCH 35.5 H MCHC 32.3 RDW 29.1 H Plt Count 179 MPV 9.1 Sodium 146 H Potassium 3.6 Chloride 113 H Carbon Dioxide 22.9 Anion Gap 10 BUN 29 H Creatinine 1.23 Estimated GFR 56 L Random Glucose 195 H Calcium 8.8 Total Bilirubin 4.2 H AST 23 ALT 27 Alkaline Phosphatase 67 Total Protein 6.1 L Albumin 2.2 L Lipase 2353 H Microbiology 10/18/17 19:21 Blood - Peripheral Aerobic Blood Culture - Preliminary No growth in 3 days 10/18/17 19:21 Blood - Peripheral Anaerobic Blood Culture - Preliminary No growth in 3 days 10/18/17 19:15 Blood - Peripheral Aerobic Blood Culture - Preliminary No growth in 3 days 10/18/17 19:15 Blood - Peripheral Anaerobic Blood Culture - Preliminary No growth in 3 days 10/17/17 05:50 Blood - Peripheral Aerobic Blood Culture - Preliminary No growth in 4 days 10/17/17 05:50 Blood - Peripheral Anaerobic Blood Culture - Preliminary No growth in 4 days 10/17/17 05:55 Blood - Peripheral Aerobic Blood Culture - Preliminary No growth in 4 days 10/17/17 05:55 Blood - Peripheral Anaerobic Blood Culture - Preliminary No growth in 4 days 10/19/17 17:15 Catheterized Urine Urine Culture - Final No growth in 48 hours - Imaging Impressions Abdomen X-Ray 10/21/17 00:00 CONCLUSION: Dilated bowel in the left mid abdomen. It is not clear if this is colon or small bowel but may represent small intestine dilatation. This has increased from the prior study. Given the appearance on prior CT from 2 days ago this could represent some degree of small bowel obstruction. Therefore, suggest attention to this at follow-up imaging. - Procedures ERCP PROCEDURE REPORT EXAM DATE: 10/18/2017 PATIENT NAME: Bulmaro Guillen MR #: [id number] BIRTHDATE: 1930 ATTENDING: Roseline Odonnell MD ORDER #: [id number] DRAWING IN MACHINE TENDER HELPER: Roge Villaseñor and Liana Holguin STATUS: inpatient INDICATIONS: The patient is a 87 yr old male here for an ERCP due to established ascending cholangitis PROCEDURE PERFORMED: ERCP with sphincterotomy/papillotomy ERCP with removal of calculus/calculi MEDICATIONS: None and Per Anesthesia. CONSENT: The patient understands the risks and benefits of the procedure and understands that these risks include, but are not limited to: sedation, allergic reaction, infection, perforation and/or bleeding. Alternative means of evaluation and treatment include, among others: physical exam, x-rays, and/or surgical intervention. The patient elects to proceed with this endoscopic procedure. medical equipment was checked for proper function. Hand hygiene and appropriate measures for infection prevention was taken. After the risks, benefits and alternatives of the procedure were thoroughly explained, Informed was verified, confirmed and timeout was successfully executed by the treatment team. With the patient in left semi-prone position, medications were administered intravenously.The Pentax [id number] was passed from the mouth into the esophagus and further advanced from the esophagus into the stomach. From stomach scope was directed to the second portion of the duodenum. Major papilla was aligned with the duodenoscope. The scope position was confirmed fluoroscopically. Rest of the findings/therapeutics are given below. The scope was then completely withdrawn from the patient and the procedure completed. The pulse, BP, and O2 saturation were monitored and documented by the physician and the nursing staff throughout the entire procedure. The patient was cared for as planned according to standard protocol. The patient was then discharged to recovery in stable condition and with appropriate post procedure care. The ampulla was located the second portion of the duodenum. A previously placed stent was seen extending from the orifice. The old stent was removed using a snare. There was a dilation of the common hepatic duct and CBD. Three filling defects were seen in the distal common bile duct. With guidewire in the bile duct, a large biliary sphincterotomy was performed using the sphincterotome. Using a stone extraction balloon the bile duct was swept several times. Multiple stones were removed from the bile duct successfully. Using a stone extraction balloon the bile duct was swept several times. Multiple stone fragments were removed from the bile duct successfully. ADVERSE EVENT: There were no complications. IMPRESSIONS: 1. A previously placed ampulla stent was seen extending from the orifice, removed by snare. 2. 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 3. Sphincterotomy done. 4. Ductal sweep with balloon and irrigation removing multiple variable size stones, sludge and debris. 5. Normal inclusion cholangiogram afterward RECOMMENDATIONS: 1. Antibiotics 2. Liver enzymes REPEAT EXAM: NONE Assessment and Plan - Assessment (1) Pancreatitis Code(s): K85.90 - Acute pancreatitis without necrosis or infection, unspecified Status: Acute (2) Ileus, postoperative Code(s): K91.89 - Other postprocedural complications and disorders of digestive system; K56.7 - Ileus, unspecified Status: Acute
[2017-10-22] MEDS ORDERED: Diatrizoate Meglum/Diatrizoate Sod Liq 120 ML Bottle (for RAD diag) NG/OG ONE ×2 (10:53→19:23)
--- NOTE | 2017-10-22 12:14 | XR ---
EXAM DATE: 10/22/2017 11:48 AM EDT AGE/SEX: 87 years / Male INDICATIONS: Abdominal pain and swelling CLINICAL DATA: This is the patient's subsequent encounter. Patient reports that signs and symptoms h ave been present for 2 weeks and indicates a pain score of 4/10. MEDICAL/SURGICAL HISTORY: Pancreatitis. None. COMPARISON: [facility] [place], ABDOMEN 1V KUB, 10/21/2017. . FINDINGS: Dilated bowel loops in the left abdomen not definitely changed. No abnormal masses, calcifications, or organomegaly is seen. Postsurgical changes in the pelvis. Right hip orthopedic hardware. Degenera tive changes lumbar spine. CONCLUSION: Dilated bowel loops in the left abdomen, unchanged. Electronically signed by: Nicholas Irizarry MD 10/22/2017 12:13 PM EDT
--- NOTE | 2017-10-22 14:33 | P.PNGI ---
Subjective Interval history: Pt with no improvement today. States still no flatus, no BM. Abdomen remains distended. NGT to LIWS, output seems to be slowing down. concerned regarding lack of nutrition. <Alley Ruiz - Last Filed: 10/22/17 14:24> Physical Exam Vital signs: Vital Signs 10/21/17 15:00 10/21/17 16:00 10/21/17 17:00 Temperature 98 F Pulse Rate 80 84 84 Respiratory Rate 16 Blood Pressure 151/64 H Pulse Oximetry 94 L 10/21/17 18:00 10/21/17 19:00 10/21/17 20:00 Temperature 97.7 F Pulse Rate 80 92 H 82 Respiratory Rate Blood Pressure 151/65 H Pulse Oximetry 95 10/21/17 21:00 10/21/17 22:00 10/21/17 23:00 Temperature 98.7 F Pulse Rate 84 88 88 Respiratory Rate Blood Pressure 154/65 H Pulse Oximetry 95 10/21/17 23:56 10/22/17 00:00 10/22/17 01:00 Temperature Pulse Rate 85 81 Respiratory Rate Blood Pressure Pulse Oximetry 95 10/22/17 02:00 10/22/17 03:00 10/22/17 04:00 Temperature 97.8 F Pulse Rate 80 81 81 Respiratory Rate Blood Pressure 159/68 H Pulse Oximetry 92 L 10/22/17 05:00 10/22/17 06:00 10/22/17 07:00 Temperature 98.2 F Pulse Rate 90 97 H 81 Respiratory Rate 20 Blood Pressure 143/65 H Pulse Oximetry 95 10/22/17 08:00 10/22/17 09:00 10/22/17 10:00 Temperature Pulse Rate 83 86 92 H Respiratory Rate Blood Pressure Pulse Oximetry 10/22/17 10:58 10/22/17 11:00 10/22/17 12:00 Temperature 98.9 F Pulse Rate 93 H 88 85 Respiratory Rate 20 Blood Pressure 137/61 Pulse Oximetry 96 10/22/17 13:00 10/22/17 14:00 Temperature Pulse Rate 94 H 79 Respiratory Rate Blood Pressure Pulse Oximetry Intake & Output 10/21/17 10/22/17 10/22/17 18:59 06:59 18:59 Intake Total 975 / 975 2150 / 2150 300 / 300 Output Total 1750 / 1750 1300 / 1300 Balance -775 / -775 850 / 850 300 / 300 Weight 103 kg Intake: IV 975 / 975 2150 / 2150 300 / 300 D5W/1/2NS + KCL 10 mEq Inj 1, 2000 / 2000 000 ML @ 150 mls/hr IV.CONT . Q6H40M [facility] Rx#:[id number] NS Inj 1,000 ML @ 150 mls/hr IV 625 / 625 .CONT .Q6H40M [facility] Rx#:[id number] Azithromycin Inj 500 MG In NS 250 / 250 250 / 250 Inj 250 ML @ 250 mls/hr IV.SIG Q24H [facility] Rx#:[id number] Zosyn 3.375 GM Premix 50 ML @ 100 / 100 150 / 150 50 / 50 100 mls/hr IV.SIG Q6H [facility] Rx#: [id number] Output: Urine Amount (Catheter) 950 / 950 600 / 600 Indwelling Urethral Catheter 950 / 950 600 / 600 Gastric Drainage 800 / 800 700 / 700 Left Nare Nasogastric Tube 800 / 800 700 / 700 Other: Date of Last Bowel Movement 10/18/17 10/18/17 - Constitutional no acute distress - Routine HEENT Exam Head: Present: normocephalic, atraumatic - Routine Respiratory Exam Absent: accessory muscle use - Routine Cardiovascular Exam Present: RRR - Routine Abdominal Exam Present: distended, firm. Absent: normoactive bowel sounds, tenderness - Routine Skin Exam Present: dry, warm - Routine Neurological Exam Present: alert, oriented X3 - Urinary Catheter Management Indwelling Urethral Catheter Cath placed during this visit: yes Reason for continuing: Acute urinary retention Insertion date: 10/17/17 Insertion time: 17:30 <Alley Ruiz - Last Filed: 10/22/17 14:24> Vital signs: Vital Signs 10/21/17 20:00 10/21/17 21:00 10/21/17 22:00 Temperature Pulse Rate 82 84 88 Respiratory Rate Blood Pressure Pulse Oximetry 10/21/17 23:00 10/21/17 23:56 10/22/17 00:00 Temperature 98.7 F Pulse Rate 88 85 Respiratory Rate Blood Pressure 154/65 H Pulse Oximetry 95 95 10/22/17 01:00 10/22/17 02:00 10/22/17 03:00 Temperature 97.8 F Pulse Rate 81 80 81 Respiratory Rate Blood Pressure 159/68 H Pulse Oximetry 92 L 10/22/17 04:00 10/22/17 05:00 10/22/17 06:00 Temperature Pulse Rate 81 90 97 H Respiratory Rate Blood Pressure Pulse Oximetry 10/22/17 07:00 10/22/17 08:00 10/22/17 09:00 Temperature 98.2 F Pulse Rate 81 83 86 Respiratory Rate 20 Blood Pressure 143/65 H Pulse Oximetry 95 10/22/17 10:00 10/22/17 10:58 10/22/17 11:00 Temperature 98.9 F Pulse Rate 92 H 93 H 88 Respiratory Rate 20 Blood Pressure 137/61 Pulse Oximetry 96 10/22/17 12:00 10/22/17 13:00 10/22/17 14:00 Temperature Pulse Rate 85 94 H 79 Respiratory Rate Blood Pressure Pulse Oximetry 10/22/17 15:00 10/22/17 16:00 10/22/17 17:00 Temperature 99.3 F Pulse Rate 90 89 84 Respiratory Rate 28 H Blood Pressure 142/65 H Pulse Oximetry 97 10/22/17 18:00 Temperature Pulse Rate 95 H Respiratory Rate Blood Pressure Pulse Oximetry Intake & Output 10/22/17 10/22/17 10/23/17 06:59 18:59 06:59 Intake Total 2150 / 2150 1540 / 1540 Output Total 1300 / 1300 825 / 825 Balance 850 / 850 715 / 715 Weight 103 kg Intake: IV 2150 / 2150 1300 / 1300 D5W/1/2NS + KCL 10 mEq Inj , 1999 / 1999 1000 / 1000 000 ML @ 150 mls/hr IV.CONT . Q6H40M [facility] Rx#:[id number] Azithromycin Inj 500 MG In NS 250 / 250 Inj 250 ML @ 250 mls/hr IV.SIG Q24H [facility] Rx#:[id number] Zosyn 3.375 GM Premix 50 ML @ 150 / 150 50 / 50 100 mls/hr IV.SIG Q6H [facility] Rx#: [id number] Oral 240 / 240 Output: Urine Amount (Catheter) 600 / 600 825 / 825 Indwelling Urethral Catheter 600 / 600 825 / 825 Gastric Drainage 700 / 700 Left Nare Nasogastric Tube 700 / 700 Other: Date of Last Bowel Movement 10/18/17 - Urinary Catheter Management Indwelling Urethral Catheter Cath placed during this visit: no <Genaro Bravo E - Last Filed: 10/22/17 19:50> Results - Labs CBC & Chem 7: 10/22/17 05:33 10/22/17 05:33 Laboratory Results - last 24 hr 10/21/17 10/22/17 10/22/17 14:35 05:33 05:33 WBC 12.8 H RBC 2.12 L Hgb 7.9 L 7.5 L Hct 25.2 L 23.3 L MCV 110.0 H MCH 35.5 H MCHC 32.3 RDW 29.1 H Plt Count 179 MPV 9.1 Sodium 146 H Potassium 3.6 Chloride 113 H Carbon Dioxide 22.9 Anion Gap 10 BUN 29 H Creatinine 1.23 Estimated GFR 56 L Random Glucose 195 H Calcium 8.8 Total Bilirubin 4.2 H AST 23 ALT 27 Alkaline Phosphatase 67 Total Protein 6.1 L Albumin 2.2 L Lipase 2353 H Microbiology 10/18/17 19:21 Blood - Peripheral Aerobic Blood Culture - Preliminary No growth in 4 days 10/18/17 19:21 Blood - Peripheral Anaerobic Blood Culture - Preliminary No growth in 4 days 10/18/17 19:15 Blood - Peripheral Aerobic Blood Culture - Preliminary No growth in 4 days 10/18/17 19:15 Blood - Peripheral Anaerobic Blood Culture - Preliminary No growth in 4 days 10/17/17 05:50 Blood - Peripheral Aerobic Blood Culture - Final No growth in 5 days 10/17/17 05:50 Blood - Peripheral Anaerobic Blood Culture - Final No growth in 5 days 10/17/17 05:55 Blood - Peripheral Aerobic Blood Culture - Final No growth in 5 days 10/17/17 05:55 Blood - Peripheral Anaerobic Blood Culture - Final No growth in 5 days 10/19/17 17:15 Catheterized Urine Urine Culture - Final No growth in 48 hours - Imaging Impressions Abdomen X-Ray 10/21/17 00:00 CONCLUSION: Dilated bowel in the left mid abdomen. It is not clear if this is colon or small bowel but may represent small intestine dilatation. This has increased from the prior study. Given the appearance on prior CT from 2 days ago this could represent some degree of small bowel obstruction. Therefore, suggest attention to this at follow-up imaging. Abdomen X-Ray 10/22/17 07:00 CONCLUSION: Dilated bowel loops in the left abdomen, unchanged. - Procedures ERCP PROCEDURE REPORT EXAM DATE: 10/18/2017 PATIENT NAME: Bulmaro Guillen MR #: [id number] BIRTHDATE: 1930 ATTENDING: Roseline Odonnell MD ORDER #: [id number] HEAD MVA REACTOR OPERATOR: Roge Villaseñor and Liana Holguin STATUS: inpatient INDICATIONS: The patient is a 87 yr old male here for an ERCP due to established ascending cholangitis PROCEDURE PERFORMED: ERCP with sphincterotomy/papillotomy ERCP with removal of calculus/calculi MEDICATIONS: None and Per Anesthesia. CONSENT: The patient understands the risks and benefits of the procedure and understands that these risks include, but are not limited to: sedation, allergic reaction, infection, perforation and/or bleeding. Alternative means of evaluation and treatment include, among others: physical exam, x-rays, and/or surgical intervention. The patient elects to proceed with this endoscopic procedure. medical equipment was checked for proper function. Hand hygiene and appropriate measures for infection prevention was taken. After the risks, benefits and alternatives of the procedure were thoroughly explained, Informed was verified, confirmed and timeout was successfully executed by the treatment team. With the patient in left semi-prone position, medications were administered intravenously.The [employer] [id number] was passed from the mouth into the esophagus and further advanced from the esophagus into the stomach. From stomach scope was directed to the second portion of the duodenum. Major papilla was aligned with the duodenoscope. The scope position was confirmed fluoroscopically. Rest of the findings/therapeutics are given below. The scope was then completely withdrawn from the patient and the procedure completed. The pulse, BP, and O2 saturation were monitored and documented by the physician and the nursing staff throughout the entire procedure. The patient was cared for as planned according to standard protocol. The patient was then discharged to recovery in stable condition and with appropriate post procedure care. The ampulla was located the second portion of the duodenum. A previously placed stent was seen extending from the orifice. The old stent was removed using a snare. There was a dilation of the common hepatic duct and CBD. Three filling defects were seen in the distal common bile duct. With guidewire in the bile duct, a large biliary sphincterotomy was performed using the sphincterotome. Using a stone extraction balloon the bile duct was swept several times. Multiple stones were removed from the bile duct successfully. Using a stone extraction balloon the bile duct was swept several times. Multiple stone fragments were removed from the bile duct successfully. ADVERSE EVENT: There were no complications. IMPRESSIONS: 1. A previously placed ampulla stent was seen extending from the orifice, removed by snare. 2. 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 3. Sphincterotomy done. 4. Ductal sweep with balloon and irrigation removing multiple variable size stones, sludge and debris. 5. Normal inclusion cholangiogram afterward RECOMMENDATIONS: 1. Antibiotics 2. Liver enzymes REPEAT EXAM: NONE <Alley Ruiz - Last Filed: 10/22/17 14:24> - Labs CBC & Chem 7: 10/22/17 05:33 10/22/17 05:33 Laboratory Results - last 24 hr 10/22/17 10/22/17 10/22/17 05:33 05:33 15:47 WBC 12.8 H RBC 2.12 L Hgb 7.5 L Hct 23.3 L MCV 110.0 H MCH 35.5 H MCHC 32.3 RDW 29.1 H Plt Count 179 MPV 9.1 Sodium 146 H Potassium 3.6 Chloride 113 H Carbon Dioxide 22.9 Anion Gap 10 BUN 29 H Creatinine 1.23 Estimated GFR 56 L Random Glucose 195 H Calcium 8.8 Total Bilirubin 4.2 H 4.7 H Direct Bilirubin 3.5 H Indirect Bilirubin 1.2 H AST 23 ALT 27 Alkaline Phosphatase 67 Total Protein 6.1 L Albumin 2.2 L Lipase 2353 H Microbiology 10/18/17 19:21 Blood - Peripheral Aerobic Blood Culture - Preliminary No growth in 4 days 10/18/17 19:21 Blood - Peripheral Anaerobic Blood Culture - Preliminary No growth in 4 days 10/18/17 19:15 Blood - Peripheral Aerobic Blood Culture - Preliminary No growth in 4 days 10/18/17 19:15 Blood - Peripheral Anaerobic Blood Culture - Preliminary No growth in 4 days 10/17/17 05:50 Blood - Peripheral Aerobic Blood Culture - Final No growth in 5 days 10/17/17 05:50 Blood - Peripheral Anaerobic Blood Culture - Final No growth in 5 days 10/17/17 05:55 Blood - Peripheral Aerobic Blood Culture - Final No growth in 5 days 10/17/17 05:55 Blood - Peripheral Anaerobic Blood Culture - Final No growth in 5 days - Imaging Impressions Abdomen X-Ray 10/22/17 07:00 CONCLUSION: Dilated bowel loops in the left abdomen, unchanged. <LawrenceGenaro - Last Filed: 10/22/17 19:50> Assessment and Plan (1) Cholangitis Status: Acute Code(s): K83.0 - Cholangitis (2) Elevated LFTs Status: Acute Code(s): R94.5 - Abnormal results of liver function studies (3) Pancreatitis Status: Acute Code(s): K85.90 - Acute pancreatitis without necrosis or infection, unspecified - Plan Assessment: - Elevated LFTs and pancreatitis with recent ERCP with findings of biliary sludge and bile duct dilatation S/P balloon sweep and plastic stent placement on 10/11- Pt with history of choledocholithiasis and cholangitis. History of cholecystectomy. Complaining of: upper abdominal pain that began at 9pm last night after dinner at 8pm, constant, described as "hunger pains". Denies associated fever, chills, nausea, vomiting. Denies history of pancreatitis. Denies ETOH. CT abdomen and pelvis W IV contrast (10/17) Moderate peripancreatic inflammatory stranding consistent with pancreatitis. Pancreas enhances uniformly and there is no peripancreatic fluid collection at this time. Interval placement of CBD stent with persistent intra and extra hepatic ductal dilatation. Focal adynamic ileus in the proximal jejunum secondary to the peripancreatic inflammatory changes S/P ERCP (10/18) --> A previously placed ampulla stent was seen extending from the orifice, removed by snare. 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 Sphincterotomy done. Ductal sweep with balloon and irrigation removing multiple variable size stones, sludge and debris. Normal inclusion cholangiogram afterward Repeat CT abdomen and pelvis (10/19) --> Consistent with pancreatitis, new dilatation in the distal esophagus, stomach, and proximal small bowel, contrast is seen to reach the colon which could be asymmetric ileus, some degree of obstruction cannot be excluded. Pneumobilia, previously seen biliary duct stent has been removed, CBD is dilated measuring 1.8 cm. 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 Abdomen remains distended, firm. Denies BM and passing gas. NGT to LIWS with continued large amounts of output. Leukocytosis improving, pt remains on Zosyn. No repeat LFTs or lipase from today (10/22) Pt with no improvement today. Abdomen remains distended. Denies flatus and BM. States has been burping a lot. Still with NG to LIWS, output slowing down. Discussed with at bedside who is concerned regarding his lack of nutrition. Increase in T bili today, LFTs WNL. H/H trending down since two days ago, no obvious source of GIB. Plan: SBFT Continue NPO OK for ice chips NGT to LIWS Monitor LFTs Fractionate bilirubin Consider TPN Further recommendations based on clinical course Pt has been seen and examined by myself and Dr. Bravo and this note is written on his behalf <Alley Ruiz - Last Filed: 10/22/17 14:24> (1) Cholangitis Status: Acute Code(s): K83.0 - Cholangitis (2) Elevated LFTs Status: Acute Code(s): R94.5 - Abnormal results of liver function studies (3) Pancreatitis Status: Acute Code(s): K85.90 - Acute pancreatitis without necrosis or infection, unspecified - Attending Attestation Patient seen and examined agree with above Continue with current supportive care Monitor labs Case discussed with radiology the small bowel follow-through is still in progress and the preliminary reading at this point is that there has been no movement of contrast from the stomach We will await final result of small bowel follow-through <Genaro Bravo - Last Filed: 10/22/17 19:50>
[2017-10-22] MEDS ORDERED: Simethicone 125 MG Chew Tablet PO ONE (16:43)
[2017-10-22] MEDS ORDERED: Simethicone 125 MG Chew Tablet PO PRN (16:44)
[2017-10-22] MEDS: Sod Chloride 0.9% Inj 1,000 ML IV.CONT SCH (17:17)
--- NOTE | 2017-10-22 19:02 | P.PNGS ---
Subjective Patient reports: still having pain (distension, small flatus, no bm) Physical Exam Vital signs: Vital Signs 10/21/17 20:00 10/21/17 21:00 10/21/17 22:00 Temperature Pulse Rate 82 84 88 Respiratory Rate Blood Pressure Pulse Oximetry 10/21/17 23:00 10/21/17 23:56 10/22/17 00:00 Temperature 98.7 F Pulse Rate 88 85 Respiratory Rate Blood Pressure 154/65 H Pulse Oximetry 95 95 10/22/17 01:00 10/22/17 02:00 10/22/17 03:00 Temperature 97.8 F Pulse Rate 81 80 81 Respiratory Rate Blood Pressure 159/68 H Pulse Oximetry 92 L 10/22/17 04:00 10/22/17 05:00 10/22/17 06:00 Temperature Pulse Rate 81 90 97 H Respiratory Rate Blood Pressure Pulse Oximetry 10/22/17 07:00 10/22/17 08:00 10/22/17 09:00 Temperature 98.2 F Pulse Rate 81 83 86 Respiratory Rate 20 Blood Pressure 143/65 H Pulse Oximetry 95 10/22/17 10:00 10/22/17 10:58 10/22/17 11:00 Temperature 98.9 F Pulse Rate 92 H 93 H 88 Respiratory Rate 20 Blood Pressure 137/61 Pulse Oximetry 96 10/22/17 12:00 10/22/17 13:00 10/22/17 14:00 Temperature Pulse Rate 85 94 H 79 Respiratory Rate Blood Pressure Pulse Oximetry 10/22/17 15:00 10/22/17 16:00 10/22/17 17:00 Temperature 99.3 F Pulse Rate 90 89 84 Respiratory Rate 28 H Blood Pressure 142/65 H Pulse Oximetry 97 10/22/17 18:00 Temperature Pulse Rate 95 H Respiratory Rate Blood Pressure Pulse Oximetry Intake & Output 10/22/17 10/22/17 10/23/17 06:59 18:59 06:59 Intake Total 2150 / 2150 1300 / 1300 Output Total 1300 / 1300 Balance 850 / 850 1300 / 1300 Weight 103 kg Intake: IV 2150 / 2150 1300 / 1300 D5W/1/2NS + KCL 10 mEq Inj 1999 / 1999 1000 / 1000 000 ML @ 150 mls/hr IV.CONT . Q6H40M [facility] Rx#:[id number] Azithromycin Inj 500 MG In NS 250 / 250 Inj 250 ML @ 250 mls/hr IV.SIG Q24H [facility] Rx#:[id number] Zosyn 3.375 GM Premix 50 ML @ 150 / 150 50 / 50 100 mls/hr IV.SIG Q6H [facility] Rx#: [id number] Output: Urine Amount (Catheter) 600 / 600 Indwelling Urethral Catheter 600 / 600 Gastric Drainage 700 / 700 Left Nare Nasogastric Tube 700 / 700 Other: Date of Last Bowel Movement 10/18/17 - Routine Abdominal Exam Present: soft, distended - Urinary Catheter Management Indwelling Urethral Catheter Cath placed during this visit: yes Reason for continuing: Acute urinary retention Insertion date: 10/17/17 Insertion time: 17:30 Assessment and Plan - Plan pancreatits, ileus- still with distension PLAN NPO, NG tube abdominal exams labs axr pending consider SBFT may need TPN will follow
[2017-10-23] MEDS: Piperacil/Tazo 3.375 GM Premix 50 ML IV.SIG SCH ×4 (00:13→17:41)
[2017-10-23 04:02] LABS: ABG Base Excess -0.6 mmol/L (-2-2); ABG PCO2 38 mmHg (38-42); ABG PO2 79 mmHG (61-120)
--- NOTE | 2017-10-23 04:56 | XR ---
EXAM DATE: 10/23/2017 4:45 AM EDT AGE/SEX: 87 years / Male INDICATIONS: . Shortness of breath. CLINICAL DATA: This is the patient's subsequent encounter. Patient reports that signs and symptoms h ave been present for 4 - 6 days and indicates a pain score of Nonresponsive. MEDICAL/SURGICAL HISTORY: Gastroesophageal reflux disease. Pacemaker. COMPARISON: C, CHEST 1V SINGLE AP, 10/20/2017. . FINDINGS: Bilateral mostly basilar airspace disease and pleural effusions. Cardiomegaly. NG tip at GE junction. No pneumothorax. Pacer leads unchanged. CONCLUSION: Bilateral mostly basilar airspace disease and pleural effusions similar to October 20. Cardiomegaly. NG tip near GE junction with side port in distal esophagus. Electronically signed by: Mejia Sewell MD 10/23/2017 4:55 AM EDT
[2017-10-23 06:58] LABS: Baso # (Auto) 0.1 th/mm3 (0.0-0.2); Baso % (Auto) 0.5 % (0.0-2.0); Eos % (Auto) 0.2 % (0.0-4.0); Hemoglobin 8.1 gm/dL (13.0-17.0); Lymph # (Auto) 0.8 th/mm3 (1.0-4.8); Lymph % (Auto) 5.8 % (9.0-44.0); Mean Corpuscular HGB Conc 32.2 % (32.0-36.0); Mean Corpuscular Hemoglobin 34.9 pg (27.0-34.0); Mean Corpuscular Volume 108.5 fL (80.0-100.0); Mean Platelet Volume 8.9 fL (7.0-11.0); Mono # (Auto) 0.7 th/mm3 (0.0-0.9); Mono % (Auto) 5.5 % (0.0-8.0); Neut # (Auto) 11.4 th/mm3 (1.8-7.7); Platelet Count 186 th/mm3 (150-450); Red Blood Count 2.31 mil/mm3 (4.50-5.90); Red Cell Distribution Width 30.2 % (11.6-17.2); White Blood Count 12.9 th/mm3 (4.0-11.0)
[2017-10-23 07:13] LABS: Calcium 8.8 mg/dL (8.5-10.1); Carbon Dioxide 26.2 meq/L (21.0-32.0); Potassium 3.4 meq/L (3.5-5.1)
[2017-10-23 07:42] LABS: Lymphocytes 3 % (9-44); Metamyelocytes 1 % (0-1); Monocytes 4 % (0-8)
[2017-10-23 07:43] LABS: Acanthocytes 1+; Dohle Bodies Present; Ovalocytes 1+; Platelet Estimate Normal (Normal); Platelet Morphology Clumped (Normal); Target Cells 1+
[2017-10-23 08:07] LABS: Magnesium 2.4 mg/dL (1.5-2.5); Phosphorus 2.9 mg/dL (2.5-4.9)
--- NOTE | 2017-10-23 09:38 | P.PN ---
Subjective Interval history: Follow-up for pancreatitis, ileus. Patient is currently resting in bed. NG tube on wall suction. No fever or chills. Physical Exam Vital signs: Vital Signs 10/22/17 10:00 10/22/17 10:58 10/22/17 11:00 Temperature 98.9 F Pulse Rate 92 H 93 H 88 Respiratory Rate 20 Blood Pressure 137/61 Pulse Oximetry 96 10/22/17 12:00 10/22/17 13:00 10/22/17 14:00 Temperature Pulse Rate 85 94 H 79 Respiratory Rate Blood Pressure Pulse Oximetry 10/22/17 15:00 10/22/17 16:00 10/22/17 17:00 Temperature 99.3 F Pulse Rate 90 89 84 Respiratory Rate 28 H Blood Pressure 142/65 H Pulse Oximetry 97 10/22/17 18:00 10/22/17 19:00 10/22/17 20:00 Temperature 99 F Pulse Rate 95 H 86 82 Respiratory Rate 32 H Blood Pressure 154/67 H Pulse Oximetry 10/22/17 20:49 10/22/17 21:00 10/22/17 22:00 Temperature Pulse Rate 90 88 96 H Respiratory Rate 30 H Blood Pressure Pulse Oximetry 95 10/22/17 23:00 10/23/17 00:00 10/23/17 01:00 Temperature 98.7 F Pulse Rate 94 H 90 92 H Respiratory Rate 32 H Blood Pressure 130/62 Pulse Oximetry 94 L 10/23/17 02:00 10/23/17 03:00 10/23/17 03:15 Temperature 98.4 F Pulse Rate 88 96 H Respiratory Rate 28 H Blood Pressure 135/65 Pulse Oximetry 95 94 L 10/23/17 03:30 10/23/17 04:00 10/23/17 06:00 Temperature 97.6 F Pulse Rate 97 H 110 H 110 H Respiratory Rate 40 H 28 H Blood Pressure 115/89 Pulse Oximetry 93 L 92 L 10/23/17 07:00 Temperature Pulse Rate Respiratory Rate Blood Pressure Pulse Oximetry 100 Intake & Output 10/22/17 10/23/17 10/23/17 18:59 06:59 18:59 Intake Total 1540 / 1540 50 / 50 50 / 50 Output Total 825 / 825 3275 / 3275 Balance 715 / 715 -3225 / -3225 50 / 50 Weight 104.4 kg Intake: IV 1300 / 1300 50 / 50 50 / 50 D5W/1/2NS + KCL 10 mEq Inj 1, 1000 / 1000 000 ML @ 150 mls/hr IV.CONT . Q6H40M [facility] Rx#:[id number] Azithromycin Inj 500 MG In NS 250 / 250 Inj 250 ML @ 250 mls/hr IV.SIG Q24H [facility] Rx#:[id number] Zosyn 3.375 GM Premix 50 ML @ 50 / 50 50 / 50 50 / 50 100 mls/hr IV.SIG Q6H [facility] Rx#: [id number] Oral 240 / 240 0 / 0 Output: Urine Amount (Catheter) 825 / 825 1275 / 1275 Indwelling Urethral Catheter 825 / 825 1275 / 1275 Gastric Drainage 1999 Left Nare Nasogastric Tube 1999 Other: Date of Last Bowel Movement 10/18/17 10/18/17 Narrative: GENERAL: Alert, NAD. NG tube in place. SKIN: Warm and dry. HEAD: Normocephalic. EYES: No scleral icterus. No injection or drainage. NECK: Supple, trachea midline. No JVD or lymphadenopathy. CARDIOVASCULAR: Regular rate and rhythm without murmurs, gallops, or rubs. RESPIRATORY: Breath sounds equal bilaterally. No accessory muscle use. GASTROINTESTINAL: Abdomen somewhat firm and distended, bowel sound positive, mildly tender to palpation. MUSCULOSKELETAL: No cyanosis, or edema. BACK: Nontender without obvious deformity. No CVA tenderness. - Urinary Catheter Management Indwelling Urethral Catheter Cath placed during this visit: yes Reason for continuing: Acute urinary retention Insertion date: 10/17/17 Insertion time: 17:30 Results - Labs CBC & Chem 7: 10/24/17 05:56 10/24/17 05:56 Laboratory Results - last 24 hr 10/22/17 10/23/17 10/23/17 15:47 03:45 05:58 WBC 12.9 H RBC 2.31 L Hgb 8.1 L Hct 25.0 L MCV 108.5 H MCH 34.9 H MCHC 32.2 RDW 30.2 H Plt Count 186 MPV 8.9 Prelim Diff (Auto) Slide review pending Neut % (Auto) 88.0 H Lymph % (Auto) 5.8 L Huntington % (Auto) 5.5 Eos % (Auto) 0.2 Baso % (Auto) 0.5 Neut # (Auto) 11.4 H Lymph # (Auto) 0.8 L Huntington # (Auto) 0.7 Eos # (Auto) 0.0 Baso # (Auto) 0.1 WBC Differential Manual diff final Seg Neuts % (Manual) 58 Band Neuts % (Manual) 34 H Lymphocytes % (Manual) 3 L Monocytes % (Manual) 4 Metamyelocytes % (Man) 1 Abs Neuts (Manual) 12.0 H Differential Comment . Dohle Bodies Present H Platelet Estimate Normal Platelet Morphology Clumped H Target Cells 1+ H Ovalocytes 1+ H Acanthocytes (Spur) 1+ H Keratocytes Occ H Puncture Site Right radial Patient Temperature 98.6 O2 Saturation 92 ABG pH 7.40 ABG pCO2 38 ABG pO2 79 ABG HCO3 24 ABG O2 Content 11.8 L ABG Base Excess -0.6 ABG Methemoglobin 1.4 Vern Test Present Hemoglobin 9.0 L Carboxyhemoglobin 1.6 O2 Delivery Device Nasal cannula Liter Flow 6.00 Inspired O2 21 Critical Value No Sodium Potassium Chloride Carbon Dioxide Anion Gap BUN Creatinine Estimated GFR Random Glucose Calcium Phosphorus Magnesium Total Bilirubin 4.7 H Direct Bilirubin 3.5 H Indirect Bilirubin 1.2 H Troponin I B-Natriuretic Peptide 10/23/17 10/23/17 10/23/17 05:58 05:58 05:58 WBC RBC Hgb Hct MCV MCH MCHC RDW Plt Count MPV Prelim Diff (Auto) Neut % (Auto) Lymph % (Auto) Huntington % (Auto) Eos % (Auto) Baso % (Auto) Neut # (Auto) Lymph # (Auto) Huntington # (Auto) Eos # (Auto) Baso # (Auto) WBC Differential Seg Neuts % (Manual) Band Neuts % (Manual) Lymphocytes % (Manual) Monocytes % (Manual) Metamyelocytes % (Man) Abs Neuts (Manual) Differential Comment Dohle Bodies Platelet Estimate Platelet Morphology Target Cells Ovalocytes Acanthocytes (Spur) Keratocytes Puncture Site Patient Temperature O2 Saturation ABG pH ABG pCO2 ABG pO2 ABG HCO3 ABG O2 Content ABG Base Excess ABG Methemoglobin Vern Test Hemoglobin Carboxyhemoglobin O2 Delivery Device Liter Flow Inspired O2 Critical Value Sodium 150 H Potassium 3.4 L Chloride 114 H Carbon Dioxide 26.2 Anion Gap 10 BUN 29 H Creatinine 1.49 H Estimated GFR 45 L Random Glucose 173 H Calcium 8.8 Phosphorus 2.9 Magnesium 2.4 Total Bilirubin Direct Bilirubin Indirect Bilirubin Troponin I Less than 0.02 L B-Natriuretic Peptide 78 Microbiology 10/18/17 19:21 Blood - Peripheral Aerobic Blood Culture - Preliminary No growth in 4 days 10/18/17 19:21 Blood - Peripheral Anaerobic Blood Culture - Preliminary No growth in 4 days 10/18/17 19:15 Blood - Peripheral Aerobic Blood Culture - Preliminary No growth in 4 days 10/18/17 19:15 Blood - Peripheral Anaerobic Blood Culture - Preliminary No growth in 4 days 10/17/17 05:50 Blood - Peripheral Aerobic Blood Culture - Final No growth in 5 days 10/17/17 05:50 Blood - Peripheral Anaerobic Blood Culture - Final No growth in 5 days 10/17/17 05:55 Blood - Peripheral Aerobic Blood Culture - Final No growth in 5 days 10/17/17 05:55 Blood - Peripheral Anaerobic Blood Culture - Final No growth in 5 days - Imaging Impressions Abdomen X-Ray 10/22/17 07:00 CONCLUSION: Dilated bowel loops in the left abdomen, unchanged. Chest X-Ray 10/23/17 03:34 CONCLUSION: Bilateral mostly basilar airspace disease and pleural effusions similar to October 20. Cardiomegaly. NG tip near GE junction with side port in distal esophagus. - Procedures ERCP 10/18/2017 IMPRESSIONS: 1. A previously placed ampulla stent was seen extending from the orifice, removed by snare. 2. 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 3. Sphincterotomy done. 4. Ductal sweep with balloon and irrigation removing multiple variable size stones, sludge and debris. 5. Normal inclusion cholangiogram afterward Assessment and Plan - Assessment (1) Pancreatitis Code(s): K85.90 - Acute pancreatitis without necrosis or infection, unspecified Status: Acute (2) Ileus, postoperative Code(s): K91.89 - Other postprocedural complications and disorders of digestive system; K56.7 - Ileus, unspecified Status: Acute - Plan 87 year old male with history of choledocholithiasis and cholangitis status post recent ERCP admitted on 10/[address] A/ P as well as lipase level indicate acute pancreatitis. Course has been complicated by ileus. Abdominal distention/ileus - Likely secondary to severe pancreatitis, recent ERCP - CT A/P 10/19 demonstrating distention of the distal esophagus, stomach, and proximal SI which could represent a partial ileus - NGT to LIS - GI following - General surgery consulted - NPO - Pain control - Compazine PRN nausea (avoid Zofran secondary to QT prolongation since giving a macrolide to cover for PNA) - Encourage OOB, working with PT - Incentive spirometer Acute pancreatitis - Lipase 9833 on admission, down to 1097 yesterday morning - CT A/P showing mod peripancreatic inflammatory stranding and persistent intra- and extrahepatic ductal dilation with CBD stent in place - GI consulted and patient underwent repeat ERCP 10/18 with stent removal, sphincterotomy, and stone removal - Pain control - Continue Zosyn Acute Kidney Injury - Creatinine starting to trend down: 1.27>1.37>1.68>1.43 - U/A with elevated protein and moderate blood - Elevated BUN:Cr ratio likely indicating a pre-renal component though intrinsic injury can be compounding - Renally dose meds - Avoid nephrotoxic agents Pneumonia - Continue Zosyn and Azithromycin - Supplemental O2 - DuoNeb PRN Anemia - Acute on chronic - H&H trending down (7.8 from 10.8 two days ago) - MCV elevated - Folate and B12 normal - Iron studies show increased ferritin, low iron, and low TIBC (compatible with anemia of chronic disease) - Holding heparin in light of hematuria and dropping hemoglobin though urine now light doug - Monitor closely - Transfuse if Hb<7. Hgb 8.1 on 10/23/2017. - GI following Atrial fibrillation - Telemetry showing atrial fibrillation - EKG on admission showing 1st degree AV block right RBBB - AFIB may be from acute illness - Dr. Elkins following patient - Currently rate-controlled for the most part Full code. SCDs.
--- NOTE | 2017-10-23 09:49 | FL ---
EXAM DATE: 10/23/2017 9:08 AM EDT AGE/SEX: 87 years / Male INDICATIONS: Evaluate for obstruction. CLINICAL DATA: This is the patient's initial encounter. Patient reports that signs and symptoms have been present for 1 day and indicates a pain score of 0/10. MEDICAL/SURGICAL HISTORY: Pancreatitis. Gastroesophageal reflux disease. Cholecystectomy. Pac emaker. COMPARISON: [facility], ABDOMEN 1V KUB, 10/22/2017. . FLUORO TIME: 0 IMAGE COUNT: 16 CONTRAST: FINDINGS: Activity Leader film again demonstrates some dilated loops of bowel left mid abdomen. This is unchanged compare d to the prior study. Contrast was placed down the NG tube. Contrast is noted in the stomach. The fir st and second portions of the duodenum are nondilated. However, the proximal small bowel appears to b e dilated just past the ligament of Treitz. At 3.5 hours contrast is seen in multiple dilated loops o f proximal small bowel in the left midabdomen. At 6 hours there continues to be contrast within multi ple dilated loops of small bowel in the left side of the abdomen. At 15 hours contrast is now seen in the colon which is nondilated. There is still some residual contrast in some dilated loops in the le ft midabdomen. A few distal small bowel loops demonstrate some contrast which are nondilated. This quintana ggests a partial obstruction of the mid to distal small bowel. CONCLUSION: Findings suggest a partial mid to distal small bowel obstruction. Electronically signed by: Gurmeet Lopez MD 10/23/2017 9:48 AM EDT
[2017-10-23] MEDS: Azithromycin Inj 500 MG in Sodium Chlor 0.9% Inj 250 ML IV.SIG SCH (10:08)
[2017-10-23] MEDS: Senna/Docusate Sodium 8.6/50 MG Tablet PO SCH ×2 (10:14→20:15)
--- NOTE | 2017-10-23 11:06 | P.PNGI ---
Subjective Interval history: Pt on bedpan during my exam, feels he needs to have a BM now. Denies nausea. Abdomen remains distended and firm. Continued output from NG tube. <Alley Ruiz - Last Filed: 10/23/17 11:01> Physical Exam Vital signs: Vital Signs 10/22/17 12:00 10/22/17 13:00 10/22/17 14:00 Temperature Pulse Rate 85 94 H 79 Respiratory Rate Blood Pressure Pulse Oximetry 10/22/17 15:00 10/22/17 16:00 10/22/17 17:00 Temperature 99.3 F Pulse Rate 90 89 84 Respiratory Rate 28 H Blood Pressure 142/65 H Pulse Oximetry 97 10/22/17 18:00 10/22/17 19:00 10/22/17 20:00 Temperature 99 F Pulse Rate 95 H 86 82 Respiratory Rate 32 H Blood Pressure 154/67 H Pulse Oximetry 10/22/17 20:49 10/22/17 21:00 10/22/17 22:00 Temperature Pulse Rate 90 88 96 H Respiratory Rate 30 H Blood Pressure Pulse Oximetry 95 10/22/17 23:00 10/23/17 00:00 10/23/17 01:00 Temperature 98.7 F Pulse Rate 94 H 90 92 H Respiratory Rate 32 H Blood Pressure 130/62 Pulse Oximetry 94 L 10/23/17 02:00 10/23/17 03:00 10/23/17 03:15 Temperature 98.4 F Pulse Rate 88 96 H Respiratory Rate 28 H Blood Pressure 135/65 Pulse Oximetry 95 94 L 10/23/17 03:30 10/23/17 04:00 10/23/17 06:00 Temperature 97.6 F Pulse Rate 97 H 110 H 110 H Respiratory Rate 40 H 28 H Blood Pressure 115/89 Pulse Oximetry 93 L 92 L 10/23/17 07:00 10/23/17 08:00 Temperature 99.0 F Pulse Rate 80 Respiratory Rate 21 Blood Pressure 122/56 L Pulse Oximetry 100 100 Intake & Output 10/22/17 10/23/17 10/23/17 18:59 06:59 18:59 Intake Total 1540 / 1540 50 / 50 50 / 50 Output Total 825 / 825 3275 / 3275 Balance 715 / 715 -3225 / -3225 50 / 50 Weight 104.4 kg Intake: IV 1300 / 1300 50 / 50 50 / 50 D5W/1/2NS + KCL 10 mEq Inj 1, 1000 / 1000 000 ML @ 150 mls/hr IV.CONT . Q6H40M [facility] Rx#:[id number] Azithromycin Inj 500 MG In NS 250 / 250 Inj 250 ML @ 250 mls/hr IV.SIG Q24H [facility] Rx#:[id number] Zosyn 3.375 GM Premix 50 ML @ 50 / 50 50 / 50 50 / 50 100 mls/hr IV.SIG Q6H [facility] Rx#: [id number] Oral 240 / 240 0 / 0 Output: Urine Amount (Catheter) 825 / 825 1275 / 1275 Indwelling Urethral Catheter 825 / 825 1275 / 1275 Gastric Drainage 1999 Left Nare Nasogastric Tube 1999 Other: Date of Last Bowel Movement 10/18/17 10/18/17 - Constitutional no acute distress - Routine Respiratory Exam Absent: accessory muscle use - Routine Abdominal Exam Present: normoactive bowel sounds, distended, firm. Absent: tenderness - Routine Skin Exam Present: dry, warm - Routine Neurological Exam Present: alert, oriented X3 - Urinary Catheter Management Indwelling Urethral Catheter Cath placed during this visit: yes Reason for continuing: Acute urinary retention Insertion date: 10/17/17 Insertion time: 17:30 <Alley Ruiz - Last Filed: 10/23/17 11:01> Vital signs: Vital Signs 10/22/17 22:00 10/22/17 23:00 10/23/17 00:00 Temperature 98.7 F Pulse Rate 96 H 94 H 90 Respiratory Rate 32 H Blood Pressure 130/62 Pulse Oximetry 94 L 10/23/17 01:00 10/23/17 02:00 10/23/17 03:00 Temperature 98.4 F Pulse Rate 92 H 88 96 H Respiratory Rate 28 H Blood Pressure 135/65 Pulse Oximetry 95 10/23/17 03:15 10/23/17 03:30 10/23/17 04:00 Temperature 97.6 F Pulse Rate 97 H 110 H Respiratory Rate 40 H 28 H Blood Pressure 115/89 Pulse Oximetry 94 L 93 L 92 L 10/23/17 06:00 10/23/17 07:00 10/23/17 08:00 Temperature 99.0 F Pulse Rate 110 H 80 Respiratory Rate 21 Blood Pressure 122/56 L Pulse Oximetry 100 100 10/23/17 10:00 10/23/17 11:00 10/23/17 12:00 Temperature 97.9 F Pulse Rate 91 H 81 Respiratory Rate 22 Blood Pressure 134/62 Pulse Oximetry 99 98 10/23/17 14:00 10/23/17 15:00 10/23/17 18:00 Temperature Pulse Rate 77 Respiratory Rate Blood Pressure Pulse Oximetry 98 100 10/23/17 20:00 Temperature 98.6 F Pulse Rate 84 Respiratory Rate 21 Blood Pressure 141/62 H Pulse Oximetry 97 Intake & Output 10/23/17 10/23/17 10/24/17 06:59 18:59 06:59 Intake Total 50 / 50 600 / 600 50 / 50 Output Total 3275 / 3275 1900 / 1900 Balance -3225 / -3225 -1300 / -1300 50 / 50 Weight 104.4 kg Intake: IV 50 / 50 600 / 600 50 / 50 D5W/1/2NS + KCL 10 mEq Inj 1, 250 / 250 000 ML @ 150 mls/hr IV.CONT . Q6H40M [facility] Rx#:[id number] Azithromycin Inj 500 MG In NS 250 / 250 Inj 250 ML @ 250 mls/hr IV.SIG Q24H [facility] Rx#:[id number] Zosyn 3.375 GM Premix 50 ML @ 50 / 50 100 / 100 50 / 50 100 mls/hr IV.SIG Q6H [facility] Rx#: [id number] Oral 0 / 0 Output: Urine Amount (Catheter) 1275 / 1275 1300 / 1300 Indwelling Urethral Catheter 1275 / 1275 1300 / 1300 Gastric Drainage 1999 600 / 600 Left Nare Nasogastric Tube 1999 600 / 600 Other: Date of Last Bowel Movement 10/18/17 10/23/17 10/23/17 - Urinary Catheter Management Indwelling Urethral Catheter Cath placed during this visit: no <Genaro Bravo - Last Filed: 10/23/17 21:34> Results - Labs CBC & Chem 7: 10/23/17 05:58 10/23/17 05:58 Laboratory Results - last 24 hr 10/22/17 10/23/17 10/23/17 15:47 03:45 05:58 WBC 12.9 H RBC 2.31 L Hgb 8.1 L Hct 25.0 L MCV 108.5 H MCH 34.9 H MCHC 32.2 RDW 30.2 H Plt Count 186 MPV 8.9 Prelim Diff (Auto) Slide review pending Neut % (Auto) 88.0 H Lymph % (Auto) 5.8 L [place] % (Auto) 5.5 Eos % (Auto) 0.2 Baso % (Auto) 0.5 Neut # (Auto) 11.4 H Lymph # (Auto) 0.8 L [place] # (Auto) 0.7 Eos # (Auto) 0.0 Baso # (Auto) 0.1 WBC Differential Manual diff final Seg Neuts % (Manual) 58 Band Neuts % (Manual) 34 H Lymphocytes % (Manual) 3 L Monocytes % (Manual) 4 Metamyelocytes % (Man) 1 Abs Neuts (Manual) 12.0 H Differential Comment . Dohle Bodies Present H Platelet Estimate Normal Platelet Morphology Clumped H Target Cells 1+ H Ovalocytes 1+ H Acanthocytes (Spur) 1+ H Keratocytes Occ H Puncture Site Right radial Patient Temperature 98.6 O2 Saturation 92 ABG pH 7.40 ABG pCO2 38 ABG pO2 79 ABG HCO3 24 ABG O2 Content 11.8 L ABG Base Excess -0.6 ABG Methemoglobin 1.4 Vern Test Present Hemoglobin 9.0 L Carboxyhemoglobin 1.6 O2 Delivery Device Nasal cannula Liter Flow 6.00 Inspired O2 21 Critical Value No Sodium Potassium Chloride Carbon Dioxide Anion Gap BUN Creatinine Estimated GFR Random Glucose Calcium Phosphorus Magnesium Total Bilirubin 4.7 H Direct Bilirubin 3.5 H Indirect Bilirubin 1.2 H Troponin I B-Natriuretic Peptide 10/23/17 10/23/17 10/23/17 05:58 05:58 05:58 WBC RBC Hgb Hct MCV MCH MCHC RDW Plt Count MPV Prelim Diff (Auto) Neut % (Auto) Lymph % (Auto) [place] % (Auto) Eos % (Auto) Baso % (Auto) Neut # (Auto) Lymph # (Auto) [place] # (Auto) Eos # (Auto) Baso # (Auto) WBC Differential Seg Neuts % (Manual) Band Neuts % (Manual) Lymphocytes % (Manual) Monocytes % (Manual) Metamyelocytes % (Man) Abs Neuts (Manual) Differential Comment Dohle Bodies Platelet Estimate Platelet Morphology Target Cells Ovalocytes Acanthocytes (Spur) Keratocytes Puncture Site Patient Temperature O2 Saturation ABG pH ABG pCO2 ABG pO2 ABG HCO3 ABG O2 Content ABG Base Excess ABG Methemoglobin Vern Test Hemoglobin Carboxyhemoglobin O2 Delivery Device Liter Flow Inspired O2 Critical Value Sodium 150 H Potassium 3.4 L Chloride 114 H Carbon Dioxide 26.2 Anion Gap 10 BUN 29 H Creatinine 1.49 H Estimated GFR 45 L Random Glucose 173 H Calcium 8.8 Phosphorus 2.9 Magnesium 2.4 Total Bilirubin Direct Bilirubin Indirect Bilirubin Troponin I Less than 0.02 L B-Natriuretic Peptide 78 Microbiology 10/18/17 19:21 Blood - Peripheral Aerobic Blood Culture - Preliminary No growth in 4 days 10/18/17 19:21 Blood - Peripheral Anaerobic Blood Culture - Preliminary No growth in 4 days 10/18/17 19:15 Blood - Peripheral Aerobic Blood Culture - Preliminary No growth in 4 days 10/18/17 19:15 Blood - Peripheral Anaerobic Blood Culture - Preliminary No growth in 4 days 10/17/17 05:50 Blood - Peripheral Aerobic Blood Culture - Final No growth in 5 days 10/17/17 05:50 Blood - Peripheral Anaerobic Blood Culture - Final No growth in 5 days 10/17/17 05:55 Blood - Peripheral Aerobic Blood Culture - Final No growth in 5 days 10/17/17 05:55 Blood - Peripheral Anaerobic Blood Culture - Final No growth in 5 days - Imaging Impressions Small Bowel X-Ray 10/22/17 00:00 CONCLUSION: Findings suggest a partial mid to distal small bowel obstruction. Abdomen X-Ray 10/22/17 07:00 CONCLUSION: Dilated bowel loops in the left abdomen, unchanged. Chest X-Ray 10/23/17 03:34 CONCLUSION: Bilateral mostly basilar airspace disease and pleural effusions similar to October 20. Cardiomegaly. NG tip near GE junction with side port in distal esophagus. - Procedures ERCP 10/18/2017 IMPRESSIONS: 1. A previously placed ampulla stent was seen extending from the orifice, removed by snare. 2. 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 3. Sphincterotomy done. 4. Ductal sweep with balloon and irrigation removing multiple variable size stones, sludge and debris. 5. Normal inclusion cholangiogram afterward <Alley Ruiz - Last Filed: 10/23/17 11:01> - Labs CBC & Chem 7: 10/23/17 05:58 10/23/17 05:58 Laboratory Results - last 24 hr 10/23/17 10/23/17 10/23/17 03:45 04:20 05:58 WBC 12.9 H RBC 2.31 L Hgb 8.1 L Hct 25.0 L MCV 108.5 H MCH 34.9 H MCHC 32.2 RDW 30.2 H Plt Count 186 MPV 8.9 Prelim Diff (Auto) Slide review pending Neut % (Auto) 88.0 H Lymph % (Auto) 5.8 L [place] % (Auto) 5.5 Eos % (Auto) 0.2 Baso % (Auto) 0.5 Neut # (Auto) 11.4 H Lymph # (Auto) 0.8 L [place] # (Auto) 0.7 Eos # (Auto) 0.0 Baso # (Auto) 0.1 WBC Differential Manual diff final Seg Neuts % (Manual) 58 Band Neuts % (Manual) 34 H Lymphocytes % (Manual) 3 L Monocytes % (Manual) 4 Metamyelocytes % (Man) 1 Abs Neuts (Manual) 12.0 H Differential Comment . Dohle Bodies Present H Platelet Estimate Normal Platelet Morphology Clumped H Target Cells 1+ H Ovalocytes 1+ H Acanthocytes (Spur) 1+ H Keratocytes Occ H Puncture Site Right radial Patient Temperature 98.6 O2 Saturation 92 ABG pH 7.40 ABG pCO2 38 ABG pO2 79 ABG HCO3 24 ABG O2 Content 11.8 L ABG Base Excess -0.6 ABG Methemoglobin 1.4 Vern Test Present Hemoglobin 9.0 L Carboxyhemoglobin 1.6 O2 Delivery Device Nasal cannula Liter Flow 6.00 Inspired O2 21 Critical Value No Sodium Potassium Chloride Carbon Dioxide Anion Gap BUN Creatinine Estimated GFR Random Glucose Calcium Phosphorus Magnesium Troponin I B-Natriuretic Peptide Nasal Screen MRSA (PCR) Not detected 10/23/17 10/23/17 10/23/17 05:58 05:58 05:58 WBC RBC Hgb Hct MCV MCH MCHC RDW Plt Count MPV Prelim Diff (Auto) Neut % (Auto) Lymph % (Auto) [place] % (Auto) Eos % (Auto) Baso % (Auto) Neut # (Auto) Lymph # (Auto) [place] # (Auto) Eos # (Auto) Baso # (Auto) WBC Differential Seg Neuts % (Manual) Band Neuts % (Manual) Lymphocytes % (Manual) Monocytes % (Manual) Metamyelocytes % (Man) Abs Neuts (Manual) Differential Comment Dohle Bodies Platelet Estimate Platelet Morphology Target Cells Ovalocytes Acanthocytes (Spur) Keratocytes Puncture Site Patient Temperature O2 Saturation ABG pH ABG pCO2 ABG pO2 ABG HCO3 ABG O2 Content ABG Base Excess ABG Methemoglobin Vern Test Hemoglobin Carboxyhemoglobin O2 Delivery Device Liter Flow Inspired O2 Critical Value Sodium 150 H Potassium 3.4 L Chloride 114 H Carbon Dioxide 26.2 Anion Gap 10 BUN 29 H Creatinine 1.49 H Estimated GFR 45 L Random Glucose 173 H Calcium 8.8 Phosphorus 2.9 Magnesium 2.4 Troponin I Less than 0.02 L B-Natriuretic Peptide 78 Nasal Screen MRSA (PCR) Microbiology 10/18/17 19:21 Blood - Peripheral Aerobic Blood Culture - Final No growth in 5 days 10/18/17 19:21 Blood - Peripheral Anaerobic Blood Culture - Final No growth in 5 days 10/18/17 19:15 Blood - Peripheral Aerobic Blood Culture - Final No growth in 5 days 10/18/17 19:15 Blood - Peripheral Anaerobic Blood Culture - Final No growth in 5 days - Imaging Impressions Small Bowel X-Ray 10/22/17 00:00 CONCLUSION: Findings suggest a partial mid to distal small bowel obstruction. Chest X-Ray 10/23/17 03:34 CONCLUSION: Bilateral mostly basilar airspace disease and pleural effusions similar to October 20. Cardiomegaly. NG tip near GE junction with side port in distal esophagus. <Genaro Bravo - Last Filed: 10/23/17 21:34> Assessment and Plan (1) Cholangitis Status: Acute Code(s): K83.0 - Cholangitis (2) Elevated LFTs Status: Acute Code(s): R94.5 - Abnormal results of liver function studies (3) Pancreatitis Status: Acute Code(s): K85.90 - Acute pancreatitis without necrosis or infection, unspecified - Plan Assessment: - Elevated LFTs and pancreatitis with recent ERCP with findings of biliary sludge and bile duct dilatation S/P balloon sweep and plastic stent placement on 10/11- Pt with history of choledocholithiasis and cholangitis. History of cholecystectomy. Complaining of: upper abdominal pain that began at 9pm last night after dinner at 8pm, constant, described as "hunger pains". Denies associated fever, chills, nausea, vomiting. Denies history of pancreatitis. Denies ETOH. CT abdomen and pelvis W IV contrast (10/17) Moderate peripancreatic inflammatory stranding consistent with pancreatitis. Pancreas enhances uniformly and there is no peripancreatic fluid collection at this time. Interval placement of CBD stent with persistent intra and extra hepatic ductal dilatation. Focal adynamic ileus in the proximal jejunum secondary to the peripancreatic inflammatory changes S/P ERCP (10/18) --> A previously placed ampulla stent was seen extending from the orifice, removed by snare. 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 Sphincterotomy done. Ductal sweep with balloon and irrigation removing multiple variable size stones, sludge and debris. Normal inclusion cholangiogram afterward Repeat CT abdomen and pelvis (10/19) --> Consistent with pancreatitis, new dilatation in the distal esophagus, stomach, and proximal small bowel, contrast is seen to reach the colon which could be asymmetric ileus, some degree of obstruction cannot be excluded. Pneumobilia, previously seen biliary duct stent has been removed, CBD is dilated measuring 1.8 cm. 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 Abdomen remains distended, firm. Denies BM and passing gas. NGT to LIWS with continued large amounts of output. Leukocytosis improving, pt remains on Zosyn. No repeat LFTs or lipase from today (10/22) Pt with no improvement today. Abdomen remains distended. Denies flatus and BM. States has been burping a lot. Still with NG to LIWS, output slowing down. Discussed with at bedside who is concerned regarding his lack of nutrition. Increase in T bili today, LFTs WNL. H/H trending down since two days ago, no obvious source of GIB. (10/23) Pt on bedpan during my visit, feels like he needs to have a BM. Abdomen remains distended, no nausea or vomiting. Continued output from NG tube. SBFT --> Findings suggest a partial mid to distal SBO. GS following. T bili remains elevated. Direct-3.5 Indirect-1.2 Plan: Appreciate GS recommendations Continue NPO OK for ice chips NGT to LIWS Monitor LFTs Monitor lipase IVF Consider TPN Further recommendations based on clinical course Pt has been seen and examined by myself and Dr. Bravo and this note is written on his behalf <Alley Ruiz - Last Filed: 10/23/17 11:01> (1) Cholangitis Status: Acute Code(s): K83.0 - Cholangitis (2) Elevated LFTs Status: Acute Code(s): R94.5 - Abnormal results of liver function studies (3) Pancreatitis Status: Acute Code(s): K85.90 - Acute pancreatitis without necrosis or infection, unspecified - Attending Attestation Patient seen and examined Agree with above Continue with current supportive care Monitor labs NG output appears to be slowing down Small bowel follow-through most likely consistent with ileus although there is a mention of possible partial small bowel obstruction We will continue with NG suction and we will start TPN The patient overall appears a little better today and his abdomen is soft and not so tender <Genaro Bravo - Last Filed: 10/23/17 21:34>
[2017-10-23] MEDS: KCL 10 mEq/D5W/NaCl 0.45% Inj 1,000 ML IV.CONT SCH ×3 (11:30→19:30)
--- NOTE | 2017-10-23 13:07 | P.PNGS ---
Subjective Patient reports: no bowel movement (still distended ng 2 L, ) Physical Exam Vital signs: Vital Signs 10/22/17 14:00 10/22/17 15:00 10/22/17 16:00 Temperature 99.3 F Pulse Rate 79 90 89 Respiratory Rate 28 H Blood Pressure 142/65 H Pulse Oximetry 97 10/22/17 17:00 10/22/17 18:00 10/22/17 19:00 Temperature Pulse Rate 84 95 H 86 Respiratory Rate Blood Pressure Pulse Oximetry 10/22/17 20:00 10/22/17 20:49 10/22/17 21:00 Temperature 99 F Pulse Rate 82 90 88 Respiratory Rate 32 H 30 H Blood Pressure 154/67 H Pulse Oximetry 95 10/22/17 22:00 10/22/17 23:00 10/23/17 00:00 Temperature 98.7 F Pulse Rate 96 H 94 H 90 Respiratory Rate 32 H Blood Pressure 130/62 Pulse Oximetry 94 L 10/23/17 01:00 10/23/17 02:00 10/23/17 03:00 Temperature 98.4 F Pulse Rate 92 H 88 96 H Respiratory Rate 28 H Blood Pressure 135/65 Pulse Oximetry 95 10/23/17 03:15 10/23/17 03:30 10/23/17 04:00 Temperature 97.6 F Pulse Rate 97 H 110 H Respiratory Rate 40 H 28 H Blood Pressure 115/89 Pulse Oximetry 94 L 93 L 92 L 10/23/17 06:00 10/23/17 07:00 10/23/17 08:00 Temperature 99.0 F Pulse Rate 110 H 80 Respiratory Rate 21 Blood Pressure 122/56 L Pulse Oximetry 100 100 10/23/17 10:00 10/23/17 11:00 Temperature Pulse Rate 91 H Respiratory Rate Blood Pressure Pulse Oximetry 99 Intake & Output 10/22/17 10/23/17 10/23/17 18:59 06:59 18:59 Intake Total 1540 / 1540 50 / 50 550 / 550 Output Total 825 / 825 3275 / 3275 Balance 715 / 715 -3225 / -3225 550 / 550 Weight 104.4 kg Intake: IV 1300 / 1300 50 / 50 550 / 550 D5W/1/2NS + KCL 10 mEq Inj 1, 1000 / 1000 250 / 250 000 ML @ 150 mls/hr IV.CONT . Q6H40M [facility] Rx#:[id number] Azithromycin Inj 500 MG In NS 250 / 250 250 / 250 Inj 250 ML @ 250 mls/hr IV.SIG Q24H [facility] Rx#:[id number] Zosyn 3.375 GM Premix 50 ML @ 50 / 50 50 / 50 50 / 50 100 mls/hr IV.SIG Q6H [facility] Rx#: [id number] Oral 240 / 240 0 / 0 Output: Urine Amount (Catheter) 825 / 825 1275 / 1275 Indwelling Urethral Catheter 825 / 825 1275 / 1275 Gastric Drainage 1999 Left Nare Nasogastric Tube 1999 Other: Date of Last Bowel Movement 10/18/17 10/18/17 - Routine Abdominal Exam Present: soft, distended - Urinary Catheter Management Indwelling Urethral Catheter Cath placed during this visit: yes Reason for continuing: Acute urinary retention Insertion date: 10/17/17 Insertion time: 17:30 Assessment and Plan - Plan pancreatits, ileus- still with distension SBFT shows partial sbo, pancreatitis PLAN NPO, NG tube abdominal exams labs recommend TPN will follow advance ng 5cm
--- NOTE | 2017-10-23 14:37 | ECG ---
Date Performed: 10/23/2017 Time Performed: 06:25:00 PTAGE: 87 years EKG: Atrial fibrillation with PVC(s) Left axis deviation IV conduction defect Extensive infarct - age undetermined Low QRS voltages in precordial leads Abnormal ECG PREVIOUS TRACING : 10/20/2017 01.11 DOCTOR: Carter Mccarthy Interpretating Date/Time 10/23/2017 14:36:30
[2017-10-23] MEDS ORDERED: TPN FLUID IV.SIG SCH (20:00)
[2017-10-24] MEDS: Piperacil/Tazo 3.375 GM Premix 50 ML IV.SIG SCH ×4 (00:55→18:15)
[2017-10-24 07:36] LABS: Hematocrit 23.2 % (39.0-51.0); Hemoglobin 7.5 gm/dL (13.0-17.0); Mean Corpuscular HGB Conc 32.2 % (32.0-36.0); Mean Corpuscular Hemoglobin 35.8 pg (27.0-34.0); Mean Corpuscular Volume 111.4 fL (80.0-100.0); Mean Platelet Volume 9.8 fL (7.0-11.0); Platelet Count 182 th/mm3 (150-450); Red Blood Count 2.09 mil/mm3 (4.50-5.90); Red Cell Distribution Width 29.6 % (11.6-17.2); White Blood Count 11.4 th/mm3 (4.0-11.0)
[2017-10-24 07:55] LABS: Alanine Aminotransferase 26 U/L (12-78); Albumin 2.1 g/dL (3.4-5.0); Anion Gap 8 meq/L (5-15); Aspartate Aminotransferase 23 U/L (15-37); Blood Urea Nitrogen 30 mg/dL (7-18); Calcium 8.4 mg/dL (8.5-10.1); Carbon Dioxide 28.2 meq/L (21.0-32.0); Chloride 118 meq/L (98-107); Glucose,Random 143 mg/dL (74-106); Potassium 3.1 meq/L (3.5-5.1); Sodium 154 meq/L (136-145)
[2017-10-24 07:58] LABS: Alkaline Phosphatase 69 U/L (45-117); Lipase 2391 U/L (73-393)
[2017-10-24] MEDS: Azithromycin Inj 500 MG in Sodium Chlor 0.9% Inj 250 ML IV.SIG SCH (08:58)
[2017-10-24] MEDS: Senna/Docusate Sodium 8.6/50 MG Tablet PO SCH ×2 (08:59→20:53)
[2017-10-24] MEDS: Potassium Chlor 20 mEq Premix 20 MEQ/100 ML PIGGYBACK IV.SIG SCH ×2 (12:49→16:20)
[2017-10-24] MEDS: Dextrose 5% in Water Inj 1,000 ML IV.CONT SCH (12:49)
--- NOTE | 2017-10-24 13:54 | P.PN ---
Subjective Interval history: Follow-up for pancreatitis, small bowel obstruction. Patient is resting in bed, no acute concerns. NG tube in place and on wall suction. No fever, chills. is concerned about nutrition. Physical Exam Vital signs: Vital Signs 10/23/17 14:00 10/23/17 15:00 10/23/17 18:00 Temperature Pulse Rate 77 Respiratory Rate Blood Pressure Pulse Oximetry 98 100 10/23/17 20:00 10/24/17 00:00 10/24/17 04:00 Temperature 98.6 F 98.5 F 98.4 F Pulse Rate 84 84 82 Respiratory Rate 21 25 H 20 Blood Pressure 141/62 H 140/61 140/63 Pulse Oximetry 97 98 100 10/24/17 07:00 10/24/17 08:00 10/24/17 08:07 Temperature 98.4 F Pulse Rate 77 Respiratory Rate 21 Blood Pressure 143/61 H Pulse Oximetry 100 100 99 10/24/17 10:00 10/24/17 12:00 Temperature 98.3 F Pulse Rate 82 76 Respiratory Rate 23 Blood Pressure 144/63 H Pulse Oximetry 97 Intake & Output 10/23/17 10/24/17 10/24/17 18:59 06:59 18:59 Intake Total 600 / 600 100 / 100 350 / 350 Output Total 1900 / 1900 1200 / 1200 Balance -1300 / -1300 -1100 / -1100 350 / 350 Weight 98.9 kg Intake: IV 600 / 600 100 / 100 350 / 350 D5W/1/2NS + KCL 10 mEq Inj 1, 250 / 250 000 ML @ 150 mls/hr IV.CONT . Q6H40M [facility] Rx#:[id number] Azithromycin Inj 500 MG In NS 250 / 250 250 / 250 Inj 250 ML @ 250 mls/hr IV.SIG Q24H [facility] Rx#:[id number] Zosyn 3.375 GM Premix 50 ML @ 100 / 100 100 / 100 100 / 100 100 mls/hr IV.SIG Q6H [facility] Rx#: [id number] Oral 0 / 0 Output: Urine Amount (Catheter) 1300 / 1300 800 / 800 Indwelling Urethral Catheter 1300 / 1300 800 / 800 Gastric Drainage 600 / 600 400 / 400 Left Nare Nasogastric Tube 600 / 600 400 / 400 Other: Date of Last Bowel Movement 10/23/17 10/23/17 10/23/17 # Bowel Movements 1 Narrative: GENERAL: Alert, NAD. NG tube in place. SKIN: Warm and dry. HEAD: Normocephalic. EYES: No scleral icterus. No injection or drainage. NECK: Supple, trachea midline. No JVD or lymphadenopathy. CARDIOVASCULAR: Regular rate and rhythm without murmurs, gallops, or rubs. RESPIRATORY: Breath sounds equal bilaterally. No accessory muscle use. GASTROINTESTINAL: Abdomen soft, BS+, non-tender to palpation. MUSCULOSKELETAL: No cyanosis, or edema. BACK: Nontender without obvious deformity. No CVA tenderness. - Urinary Catheter Management Indwelling Urethral Catheter Cath placed during this visit: yes Reason for continuing: Acute urinary retention Insertion date: 10/17/17 Insertion time: 17:30 Results - Labs CBC & Chem 7: 10/24/17 05:56 10/24/17 05:56 Laboratory Results - last 24 hr 10/23/17 10/24/17 10/24/17 04:20 05:56 05:56 WBC 11.4 H RBC 2.09 L Hgb 7.5 L Hct 23.2 L MCV 111.4 H MCH 35.8 H MCHC 32.2 RDW 29.6 H Plt Count 182 MPV 9.8 Sodium 154 H Potassium 3.1 L Chloride 118 H Carbon Dioxide 28.2 Anion Gap 8 BUN 30 H Creatinine 1.53 H Random Glucose 143 H Calcium 8.4 L Total Bilirubin 2.3 H AST 23 ALT 26 Alkaline Phosphatase 69 Total Protein 6.0 L Albumin 2.1 L Lipase 2391 H Nasal Screen MRSA (PCR) Not detected Microbiology 10/18/17 19:21 Blood - Peripheral Aerobic Blood Culture - Final No growth in 5 days 10/18/17 19:21 Blood - Peripheral Anaerobic Blood Culture - Final No growth in 5 days 10/18/17 19:15 Blood - Peripheral Aerobic Blood Culture - Final No growth in 5 days 10/18/17 19:15 Blood - Peripheral Anaerobic Blood Culture - Final No growth in 5 days - Procedures ERCP 10/18/2017 IMPRESSIONS: 1. A previously placed ampulla stent was seen extending from the orifice, removed by snare. 2. 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 3. Sphincterotomy done. 4. Ductal sweep with balloon and irrigation removing multiple variable size stones, sludge and debris. 5. Normal inclusion cholangiogram afterward Assessment and Plan - Assessment (1) Pancreatitis Code(s): K85.90 - Acute pancreatitis without necrosis or infection, unspecified Status: Acute (2) Ileus, postoperative Code(s): K91.89 - Other postprocedural complications and disorders of digestive system; K56.7 - Ileus, unspecified Status: Acute - Plan 87 year old male with history of choledocholithiasis and cholangitis status post recent ERCP admitted on 10/[address] A/ P as well as lipase level indicate acute pancreatitis. Course has been complicated by ileus. Abdominal distention/ileus - Likely secondary to severe pancreatitis, recent ERCP - CT A/P 10/19 demonstrating distention of the distal esophagus, stomach, and proximal SI which could represent a partial ileus - NGT to LIS - GI following - General surgery consulted - NPO - Pain control - Compazine PRN nausea (avoid Zofran secondary to QT prolongation since giving a macrolide to cover for PNA) - Encourage OOB, working with PT - Incentive spirometer - Will discuss with general surgery. Acute pancreatitis - Lipase 9833 on admission, down to 1097 yesterday morning - CT A/P showing mod peripancreatic inflammatory stranding and persistent intra- and extrahepatic ductal dilation with CBD stent in place - GI consulted and patient underwent repeat ERCP 10/18 with stent removal, sphincterotomy, and stone removal - Pain control - Continue Zosyn Acute Kidney Injury Hypernatremia Hypokalemia - Creatinine starting to trend down: 1.27 ==> 1.53. - U/A with elevated protein and moderate blood - Elevated BUN:Cr ratio likely indicating a pre-renal component though intrinsic injury can be compounding - Will start D5W to correct hypernatremia - Will provide IV KCL Pneumonia - Continue Zosyn and Azithromycin - Supplemental O2 - DuoNeb PRN Anemia - Acute on chronic - H&H trending down (8.1 --> 7.5) - MCV elevated - Folate and B12 normal - Iron studies show increased ferritin, low iron, and low TIBC (compatible with anemia of chronic disease) - Holding heparin in light of hematuria and dropping hemoglobin though urine now light doug - Monitor closely - Transfuse if Hb<7. Hgb 7.5 on 10/24/2017. - GI following Atrial fibrillation - Telemetry showing atrial fibrillation - EKG on admission showing 1st degree AV block right RBBB - AFIB may be from acute illness - Currently rate-controlled for the most part Full code. SCDs.
[2017-10-24] MEDS: KCL 10 mEq/D5W/NaCl 0.45% Inj 1,000 ML IV.CONT SCH (13:57)
--- NOTE | 2017-10-24 16:01 | P.PNGI ---
Subjective Interval history: Pt had BM yesterday and BM today, passing gas. Abdomen less distended and softer today. Output from NG tube slowing down. <Alley Ruiz - Last Filed: 10/24/17 15:59> Physical Exam Vital signs: Vital Signs 10/23/17 18:00 10/23/17 20:00 10/24/17 00:00 Temperature 98.6 F 98.5 F Pulse Rate 84 84 Respiratory Rate 21 25 H Blood Pressure 141/62 H 140/61 Pulse Oximetry 100 97 98 10/24/17 04:00 10/24/17 07:00 10/24/17 08:00 Temperature 98.4 F 98.4 F Pulse Rate 82 77 Respiratory Rate 20 21 Blood Pressure 140/63 143/61 H Pulse Oximetry 100 100 100 10/24/17 08:07 10/24/17 10:00 10/24/17 12:00 Temperature 98.3 F Pulse Rate 82 76 Respiratory Rate 23 Blood Pressure 144/63 H Pulse Oximetry 99 97 10/24/17 14:00 Temperature Pulse Rate 92 H Respiratory Rate Blood Pressure Pulse Oximetry Intake & Output 10/23/17 10/24/17 10/24/17 18:59 06:59 18:59 Intake Total 600 / 600 100 / 100 1100 / 1100 Output Total 1900 / 1900 1200 / 1200 Balance -1300 / -1300 -1100 / -1100 1100 / 1100 Weight 98.9 kg Intake: IV 600 / 600 100 / 100 1100 / 1100 D5W/1/2NS + KCL 10 mEq Inj 1, 250 / 250 000 ML @ 150 mls/hr IV.CONT . Q6H40M [facility] Rx#:[id number] Azithromycin Inj 500 MG In NS 250 / 250 250 / 250 Inj 250 ML @ 250 mls/hr IV.SIG Q24H [facility] Rx#:[id number] Zosyn 3.375 GM Premix 50 ML @ 100 / 100 100 / 100 100 / 100 100 mls/hr IV.SIG Q6H [facility] Rx#: [id number] Oral 0 / 0 Output: Urine Amount (Catheter) 1300 / 1300 800 / 800 Indwelling Urethral Catheter 1300 / 1300 800 / 800 Gastric Drainage 600 / 600 400 / 400 Left Nare Nasogastric Tube 600 / 600 400 / 400 Other: Date of Last Bowel Movement 10/23/17 10/23/17 10/24/17 # Bowel Movements 1 - Constitutional no acute distress - Routine HEENT Exam Head: Present: normocephalic, atraumatic - Routine Respiratory Exam Absent: accessory muscle use - Routine Abdominal Exam Present: soft, normoactive bowel sounds, distended. Absent: tenderness - Routine Skin Exam Present: dry, warm - Routine Neurological Exam Present: alert, oriented X3 - Urinary Catheter Management Indwelling Urethral Catheter Cath placed during this visit: yes Reason for continuing: Acute urinary retention Insertion date: 10/17/17 Insertion time: 17:30 <Alley Ruiz - Last Filed: 10/24/17 15:59> Vital signs: Vital Signs 10/24/17 00:00 10/24/17 04:00 10/24/17 07:00 Temperature 98.5 F 98.4 F Pulse Rate 84 82 Respiratory Rate 25 H 20 Blood Pressure 140/61 140/63 Pulse Oximetry 98 100 100 10/24/17 08:00 10/24/17 08:07 10/24/17 10:00 Temperature 98.4 F Pulse Rate 77 82 Respiratory Rate 21 Blood Pressure 143/61 H Pulse Oximetry 100 99 10/24/17 12:00 10/24/17 14:00 10/24/17 16:00 Temperature 98.3 F 97.8 F Pulse Rate 76 92 H 76 Respiratory Rate 23 22 Blood Pressure 144/63 H 140/60 Pulse Oximetry 97 99 10/24/17 18:00 10/24/17 19:41 10/24/17 20:00 Temperature Pulse Rate 87 84 Respiratory Rate 22 Blood Pressure 123/63 Pulse Oximetry 97 10/24/17 22:00 Temperature Pulse Rate 75 Respiratory Rate Blood Pressure Pulse Oximetry Intake & Output 10/24/17 10/24/17 10/25/17 06:59 18:59 06:59 Intake Total 100 / 100 1250 / 1250 Output Total 1200 / 1200 1500 / 1500 Balance -1100 / -1100 -250 / -250 Weight 98.9 kg Intake: IV 100 / 100 1250 / 1250 Azithromycin Inj 500 MG In NS 250 / 250 Inj 250 ML @ 250 mls/hr IV.SIG Q24H [facility] Rx#:[id number] Zosyn 3.375 GM Premix 50 ML @ 100 / 100 150 / 150 100 mls/hr IV.SIG Q6H [facility] Rx#: [id number] KCl 20 mEq Premix Inj 20 meq In 100 / 100 100 ml @ 50 mls/hr IV.SIG Q2H [facility] Rx#:[id number] Oral 0 / 0 Output: Urine Amount (Catheter) 800 / 800 950 / 950 Indwelling Urethral Catheter 800 / 800 950 / 950 Gastric Drainage 400 / 400 550 / 550 Left Nare Nasogastric Tube 400 / 400 550 / 550 Other: Date of Last Bowel Movement 10/23/17 10/24/17 10/24/17 # Bowel Movements 1 1 - Urinary Catheter Management Indwelling Urethral Catheter Cath placed during this visit: no <Genaro Bravo - Last Filed: 10/24/17 22:26> Results - Labs CBC & Chem 7: 10/24/17 05:56 10/24/17 05:56 Laboratory Results - last 24 hr 10/24/17 10/24/17 05:56 05:56 WBC 11.4 H RBC 2.09 L Hgb 7.5 L Hct 23.2 L MCV 111.4 H MCH 35.8 H MCHC 32.2 RDW 29.6 H Plt Count 182 MPV 9.8 Sodium 154 H Potassium 3.1 L Chloride 118 H Carbon Dioxide 28.2 Anion Gap 8 BUN 30 H Creatinine 1.53 H Random Glucose 143 H Calcium 8.4 L Total Bilirubin 2.3 H AST 23 ALT 26 Alkaline Phosphatase 69 Total Protein 6.0 L Albumin 2.1 L Lipase 2391 H - Procedures ERCP 10/18/2017 IMPRESSIONS: 1. A previously placed ampulla stent was seen extending from the orifice, removed by snare. 2. 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 3. Sphincterotomy done. 4. Ductal sweep with balloon and irrigation removing multiple variable size stones, sludge and debris. 5. Normal inclusion cholangiogram afterward <Alley Ruiz - Last Filed: 10/24/17 15:59> - Labs CBC & Chem 7: 10/24/17 05:56 10/24/17 05:56 Laboratory Results - last 24 hr 10/24/17 10/24/17 05:56 05:56 WBC 11.4 H RBC 2.09 L Hgb 7.5 L Hct 23.2 L MCV 111.4 H MCH 35.8 H MCHC 32.2 RDW 29.6 H Plt Count 182 MPV 9.8 Sodium 154 H Potassium 3.1 L Chloride 118 H Carbon Dioxide 28.2 Anion Gap 8 BUN 30 H Creatinine 1.53 H Random Glucose 143 H Calcium 8.4 L Total Bilirubin 2.3 H AST 23 ALT 26 Alkaline Phosphatase 69 Total Protein 6.0 L Albumin 2.1 L Lipase 2391 H <Sa Lawrencegriffin Gibbs - Last Filed: 10/24/17 22:26> Assessment and Plan (1) Cholangitis Status: Acute Code(s): K83.0 - Cholangitis (2) Elevated LFTs Status: Acute Code(s): R94.5 - Abnormal results of liver function studies (3) Pancreatitis Status: Acute Code(s): K85.90 - Acute pancreatitis without necrosis or infection, unspecified - Plan Assessment: - Elevated LFTs and pancreatitis with recent ERCP with findings of biliary sludge and bile duct dilatation S/P balloon sweep and plastic stent placement on 10/11- Pt with history of choledocholithiasis and cholangitis. History of cholecystectomy. Complaining of: upper abdominal pain that began at 9pm last night after dinner at 8pm, constant, described as "hunger pains". Denies associated fever, chills, nausea, vomiting. Denies history of pancreatitis. Denies ETOH. CT abdomen and pelvis W IV contrast (10/17) Moderate peripancreatic inflammatory stranding consistent with pancreatitis. Pancreas enhances uniformly and there is no peripancreatic fluid collection at this time. Interval placement of CBD stent with persistent intra and extra hepatic ductal dilatation. Focal adynamic ileus in the proximal jejunum secondary to the peripancreatic inflammatory changes S/P ERCP (10/18) --> A previously placed ampulla stent was seen extending from the orifice, removed by snare. 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 Sphincterotomy done. Ductal sweep with balloon and irrigation removing multiple variable size stones, sludge and debris. Normal inclusion cholangiogram afterward Repeat CT abdomen and pelvis (10/19) --> Consistent with pancreatitis, new dilatation in the distal esophagus, stomach, and proximal small bowel, contrast is seen to reach the colon which could be asymmetric ileus, some degree of obstruction cannot be excluded. Pneumobilia, previously seen biliary duct stent has been removed, CBD is dilated measuring 1.8 cm. 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 Abdomen remains distended, firm. Denies BM and passing gas. NGT to LIWS with continued large amounts of output. Leukocytosis improving, pt remains on Zosyn. No repeat LFTs or lipase from today (10/22) Pt with no improvement today. Abdomen remains distended. Denies flatus and BM. States has been burping a lot. Still with NG to LIWS, output slowing down. Discussed with at bedside who is concerned regarding his lack of nutrition. Increase in T bili today, LFTs WNL. H/H trending down since two days ago, no obvious source of GIB. (10/23) Pt on bedpan during my visit, feels like he needs to have a BM. Abdomen remains distended, no nausea or vomiting. Continued output from NG tube. SBFT --> Findings suggest a partial mid to distal SBO. GS following. T bili remains elevated. Direct-3.5 Indirect-1.2 (10/24) Pt had BM yesterday and BM today, passing gas. Abdomen less distended and softer. NG with slowed output. T bili improving. Lipase remains about the same. Plan: Start TPN Consult placed for vascular access for PICC Continue NPO OK for ice chips NGT to LIWS Monitor LFTs Monitor lipase IVF Further recommendations based on clinical course Pt has been seen and examined by myself and Dr. Bravo and this note is written on his behalf <Alley Ruiz - Last Filed: 10/24/17 15:59> (1) Cholangitis Status: Acute Code(s): K83.0 - Cholangitis (2) Elevated LFTs Status: Acute Code(s): R94.5 - Abnormal results of liver function studies (3) Pancreatitis Status: Acute Code(s): K85.90 - Acute pancreatitis without necrosis or infection, unspecified - Attending Attestation Patient seen and examined Agree with above Continue with current supportive care Monitor labs Patient noted to have had bowel movements Post pancreatitis ileus seems to be resolving Minimize pain medications and narcotics will defer to attending physician <Genaro Bravo - Last Filed: 10/24/17 22:26>
[2017-10-24] MEDS: Pantoprazole Inj 40 MG Vial IV.PUSH SCH (16:27)
[2017-10-24] MEDS ORDERED: Heparin Central Flush 100 UNIT/ML 5 ML Vial IV.FLUSH PRN (20:00)
--- NOTE | 2017-10-24 21:33 | P.PNGS ---
Subjective Patient reports: pain is less (abdominal exam improving but still distended, + liquid bms) Physical Exam Vital signs: Vital Signs 10/24/17 00:00 10/24/17 04:00 10/24/17 07:00 Temperature 98.5 F 98.4 F Pulse Rate 84 82 Respiratory Rate 25 H 20 Blood Pressure 140/61 140/63 Pulse Oximetry 98 100 100 10/24/17 08:00 10/24/17 08:07 10/24/17 10:00 Temperature 98.4 F Pulse Rate 77 82 Respiratory Rate 21 Blood Pressure 143/61 H Pulse Oximetry 100 99 10/24/17 12:00 10/24/17 14:00 10/24/17 16:00 Temperature 98.3 F 97.8 F Pulse Rate 76 92 H 76 Respiratory Rate 23 22 Blood Pressure 144/63 H 140/60 Pulse Oximetry 97 99 10/24/17 18:00 10/24/17 19:41 10/24/17 20:00 Temperature Pulse Rate 87 84 Respiratory Rate 22 Blood Pressure 123/63 Pulse Oximetry 97 Intake & Output 10/24/17 10/24/17 10/25/17 06:59 18:59 06:59 Intake Total 100 / 100 1250 / 1250 Output Total 1200 / 1200 1500 / 1500 Balance -1100 / -1100 -250 / -250 Weight 98.9 kg Intake: IV 100 / 100 1250 / 1250 Azithromycin Inj 500 MG In NS 250 / 250 Inj 250 ML @ 250 mls/hr IV.SIG Q24H [facility] Rx#:[id number] Zosyn 3.375 GM Premix 50 ML @ 100 / 100 150 / 150 100 mls/hr IV.SIG Q6H [facility] Rx#: [id number] KCl 20 mEq Premix Inj 20 meq In 100 / 100 100 ml @ 50 mls/hr IV.SIG Q2H [facility] Rx#:[id number] Oral 0 / 0 Output: Urine Amount (Catheter) 800 / 800 950 / 950 Indwelling Urethral Catheter 800 / 800 950 / 950 Gastric Drainage 400 / 400 550 / 550 Left Nare Nasogastric Tube 400 / 400 550 / 550 Other: Date of Last Bowel Movement 10/23/17 10/24/17 10/24/17 # Bowel Movements 1 1 - Routine Abdominal Exam Present: soft, distended - Urinary Catheter Management Indwelling Urethral Catheter Cath placed during this visit: yes Reason for continuing: Acute urinary retention Insertion date: 10/17/17 Insertion time: 17:30 Assessment and Plan - Plan pancreatits, ileus- still with distension SBFT shows partial sbo, pancreatitis, patient appears improving but still moving slow PLAN NPO, NG tube abdominal exams labs recommend TPN will follow
[2017-10-25] MEDS: Piperacil/Tazo 3.375 GM Premix 50 ML IV.SIG SCH ×4 (00:17→18:00)
[2017-10-25] MEDS: Dextrose 5% in Water Inj 1,000 ML IV.CONT SCH ×2 (06:35→13:51)
[2017-10-25] MEDS: Azithromycin Inj 500 MG in Sodium Chlor 0.9% Inj 250 ML IV.SIG SCH (08:55)
[2017-10-25] MEDS: Heparin Central Flush 100 UNIT/ML 5 ML Vial IV.FLUSH SCH (09:02)
[2017-10-25] MEDS: Senna/Docusate Sodium 8.6/50 MG Tablet PO SCH ×2 (09:03→21:24)
--- NOTE | 2017-10-25 10:55 | P.PNGI ---
Subjective Interval history: Patient is awake and weakly responds, in room for support NG tube clamped this a.m. for trial, but appeared to be still having green bilious fluid Bowel sounds active patient denies any nausea or vomiting for now. Brown BM liquid stool in the past 24 hours. Denies any abdominal pain Note last hemoglobin 7.5. <RyannDemetria M - Last Filed: 10/25/17 10:46> Physical Exam Vital signs: Vital Signs 10/24/17 12:00 10/24/17 14:00 10/24/17 16:00 Temperature 98.3 F 97.8 F Pulse Rate 76 92 H 76 Respiratory Rate 23 22 Blood Pressure 144/63 H 140/60 Pulse Oximetry 97 99 10/24/17 18:00 10/24/17 19:41 10/24/17 20:00 Temperature Pulse Rate 87 84 Respiratory Rate 22 Blood Pressure 123/63 Pulse Oximetry 97 10/24/17 22:00 10/25/17 00:00 10/25/17 02:00 Temperature 97.7 F Pulse Rate 75 86 85 Respiratory Rate 20 Blood Pressure 144/63 H Pulse Oximetry 10/25/17 04:00 10/25/17 06:00 10/25/17 08:00 Temperature 97.9 F 98 F Pulse Rate 74 75 85 Respiratory Rate 20 Blood Pressure 141/60 H 142/66 H Pulse Oximetry 98 10/25/17 10:00 Temperature Pulse Rate 82 Respiratory Rate Blood Pressure Pulse Oximetry Intake & Output 10/24/17 10/25/17 10/25/17 18:59 06:59 18:59 Intake Total 1250 / 1250 1150 / 1150 300 / 300 Output Total 1500 / 1500 300 / 300 Balance -250 / -250 850 / 850 300 / 300 Weight 96.4 kg Intake: IV 1250 / 1250 1150 / 1150 300 / 300 D5W Inj 1,000 ML @ 84 mls/hr IV 1000 / 1000 .CONT .[id number] [facility] Rx#:[id number] Azithromycin Inj 500 MG In NS 250 / 250 250 / 250 Inj 250 ML @ 250 mls/hr IV.SIG Q24H [facility] Rx#:[id number] Zosyn 3.375 GM Premix 50 ML @ 150 / 150 50 / 50 50 / 50 100 mls/hr IV.SIG Q6H [facility] Rx#: [id number] KCl 20 mEq Premix Inj 20 meq In 100 / 100 100 ml @ 50 mls/hr IV.SIG Q2H [facility] Rx#:[id number] Output: Urine Amount (Catheter) 950 / 950 Indwelling Urethral Catheter 950 / 950 Gastric Drainage 550 / 550 300 / 300 Left Nare Nasogastric Tube 550 / 550 300 / 300 Other: Date of Last Bowel Movement 10/24/17 10/24/17 10/24/17 # Bowel Movements 1 - Constitutional mild distress (Thin), chronically ill appearing - Routine HEENT Exam Head: Present: normocephalic, atraumatic ENT: Present: mucous membranes dry (NG tube now clamped this a.m.) - Routine Neck Exam Present: supple - Routine Respiratory Exam Present: decreased breath sounds (Low volumes but no obvious rhonchi or wheezing ) - Routine Cardiovascular Exam Present: S1, S2 - Routine Abdominal Exam Present: distended (taut,) - Routine Skin Exam Present: intact - Detailed Neurological Exam: Coma Scale Eye Opening: Spontaneous - Urinary Catheter Management Indwelling Urethral Catheter Cath placed during this visit: yes Reason for continuing: Acute urinary retention Insertion date: 10/17/17 Insertion time: 17:30 <Demetria Garzon - Last Filed: 10/25/17 10:46> Vital signs: Vital Signs 10/24/17 14:00 10/24/17 16:00 10/24/17 18:00 Temperature 97.8 F Pulse Rate 92 H 76 87 Respiratory Rate 22 Blood Pressure 140/60 Pulse Oximetry 99 10/24/17 19:41 10/24/17 20:00 10/24/17 22:00 Temperature Pulse Rate 84 75 Respiratory Rate 22 Blood Pressure 123/63 Pulse Oximetry 97 10/25/17 00:00 10/25/17 02:00 10/25/17 04:00 Temperature 97.7 F 97.9 F Pulse Rate 86 85 74 Respiratory Rate 20 Blood Pressure 144/63 H 141/60 H Pulse Oximetry 10/25/17 06:00 10/25/17 08:00 10/25/17 10:00 Temperature 98 F Pulse Rate 75 85 82 Respiratory Rate 20 Blood Pressure 142/66 H Pulse Oximetry 98 Intake & Output 10/24/17 10/25/17 10/25/17 18:59 06:59 18:59 Intake Total 1250 / 1250 1150 / 1150 300 / 300 Output Total 1500 / 1500 300 / 300 Balance -250 / -250 850 / 850 300 / 300 Weight 96.4 kg Intake: IV 1250 / 1250 1150 / 1150 300 / 300 D5W Inj 1,000 ML @ 84 mls/hr IV 1000 / 1000 .CONT .[id number] [facility] Rx#:[id number] Azithromycin Inj 500 MG In NS 250 / 250 250 / 250 Inj 250 ML @ 250 mls/hr IV.SIG Q24H [facility] Rx#:[id number] Zosyn 3.375 GM Premix 50 ML @ 150 / 150 50 / 50 50 / 50 100 mls/hr IV.SIG Q6H [facility] Rx#: [id number] KCl 20 mEq Premix Inj 20 meq In 100 / 100 100 ml @ 50 mls/hr IV.SIG Q2H [facility] Rx#:[id number] Output: Urine Amount (Catheter) 950 / 950 Indwelling Urethral Catheter 950 / 950 Gastric Drainage 550 / 550 300 / 300 Left Nare Nasogastric Tube 550 / 550 300 / 300 Other: Date of Last Bowel Movement 10/24/17 10/24/17 10/24/17 # Bowel Movements 1 - Urinary Catheter Management Indwelling Urethral Catheter Cath placed during this visit: no <Genaro Bravo - Last Filed: 10/25/17 13:04> Results - Labs CBC & Chem 7: 10/24/17 05:56 10/25/17 00:34 Laboratory Results - last 24 hr 10/25/17 10/25/17 00:34 04:10 Potassium 3.2 L Lipase 1989 - Procedures ERCP 10/18/2017 IMPRESSIONS: 1. A previously placed ampulla stent was seen extending from the orifice, removed by snare. 2. 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 3. Sphincterotomy done. 4. Ductal sweep with balloon and irrigation removing multiple variable size stones, sludge and debris. 5. Normal inclusion cholangiogram afterward <Demetria Garzon - Last Filed: 10/25/17 10:46> - Labs CBC & Chem 7: 10/24/17 05:56 10/25/17 00:34 Laboratory Results - last 24 hr 10/25/17 10/25/17 00:34 04:10 Potassium 3.2 L Lipase 1989 <Genaro Bravo - Last Filed: 10/25/17 13:04> Assessment and Plan (1) Cholangitis Status: Acute Code(s): K83.0 - Cholangitis (2) Elevated LFTs Status: Acute Code(s): R94.5 - Abnormal results of liver function studies (3) Pancreatitis Status: Acute Code(s): K85.90 - Acute pancreatitis without necrosis or infection, unspecified - Plan Assessment: - Elevated LFTs and pancreatitis with recent ERCP with findings of biliary sludge and bile duct dilatation S/P balloon sweep and plastic stent placement on 10/11- Pt with history of choledocholithiasis and cholangitis. History of cholecystectomy. Complaining of: upper abdominal pain that began at 9pm last night after dinner at 8pm, constant, described as "hunger pains". Denies associated fever, chills, nausea, vomiting. Denies history of pancreatitis. Denies ETOH. CT abdomen and pelvis W IV contrast (10/17) Moderate peripancreatic inflammatory stranding consistent with pancreatitis. Pancreas enhances uniformly and there is no peripancreatic fluid collection at this time. Interval placement of CBD stent with persistent intra and extra hepatic ductal dilatation. Focal adynamic ileus in the proximal jejunum secondary to the peripancreatic inflammatory changes S/P ERCP (10/18) --> A previously placed ampulla stent was seen extending from the orifice, removed by snare. 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 Sphincterotomy done. Ductal sweep with balloon and irrigation removing multiple variable size stones, sludge and debris. Normal inclusion cholangiogram afterward Repeat CT abdomen and pelvis (10/19) --> Consistent with pancreatitis, new dilatation in the distal esophagus, stomach, and proximal small bowel, contrast is seen to reach the colon which could be asymmetric ileus, some degree of obstruction cannot be excluded. Pneumobilia, previously seen biliary duct stent has been removed, CBD is dilated measuring 1.8 cm. 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 Abdomen remains distended, firm. Denies BM and passing gas. NGT to LIWS with continued large amounts of output. Leukocytosis improving, pt remains on Zosyn. No repeat LFTs or lipase from today (10/22) Pt with no improvement today. Abdomen remains distended. Denies flatus and BM. States has been burping a lot. Still with NG to LIWS, output slowing down. Discussed with at bedside who is concerned regarding his lack of nutrition. Increase in T bili today, LFTs WNL. H/H trending down since two days ago, no obvious source of GIB. (10/23) Pt on bedpan during my visit, feels like he needs to have a BM. Abdomen remains distended, no nausea or vomiting. Continued output from NG tube. SBFT --> Findings suggest a partial mid to distal SBO. GS following. T bili remains elevated. Direct-3.5 Indirect-1.2 (10/24) Pt had BM yesterday and BM today, passing gas. Abdomen less distended and softer. NG with slowed output. T bili improving. Lipase remains about the same. 10/25/2017. Awake but appears very weak. Active bowel sounds today, NG tube clamped this a.m. but will need residual checks at least every 4 hours and drained with low intermittent suction if nausea or vomiting. Spoke with surgeon this a.m. who is considering TPN until patient can tolerate p.o. fluids. No surgical plans at this time. Anemia, current hemoglobin 7.5 2017, bilirubin 2.3 with normal LFTs. Gradual decrease in lipase level 1989. Slow but some gradual improvement. Plan: Diet, n.p.o. except for a few ice chips for now Maintain NG tube clamped and monitor residuals at least every 4 hours, unclamp NG and connected to low intermittent suction if needed Consult placed for vascular access for PICC Plan to start TPN Monitor labs and transfuse as needed Pt seen per myself and Dr. Bravo, note was written on his behalf <Demetria Garzon - Last Filed: 10/25/17 10:46> (1) Cholangitis Status: Acute Code(s): K83.0 - Cholangitis (2) Elevated LFTs Status: Acute Code(s): R94.5 - Abnormal results of liver function studies (3) Pancreatitis Status: Acute Code(s): K85.90 - Acute pancreatitis without necrosis or infection, unspecified - Attending Attestation Patient seen and examined he appears to be comfortable although the abdomen is a little more distended but nontender and the NG tube is clamped I think the best course of action would be to try and stimulate the gut so patient needs physical therapy and occupational therapy to try and get him to move We will remove the NG tube and start clear liquid diet in hopes that we can resolve the ileus Patient will be started on Reglan 5 mg IV every 8 Further recommendations shall depend on his hospital course <Genaro Bravo E - Last Filed: 10/25/17 13:04>
--- NOTE | 2017-10-25 10:58 | P.PNGS ---
Subjective Patient reports: feels better (still with distension but better, +bms) Physical Exam Vital signs: Vital Signs 10/24/17 12:00 10/24/17 14:00 10/24/17 16:00 Temperature 98.3 F 97.8 F Pulse Rate 76 92 H 76 Respiratory Rate 23 22 Blood Pressure 144/63 H 140/60 Pulse Oximetry 97 99 10/24/17 18:00 10/24/17 19:41 10/24/17 20:00 Temperature Pulse Rate 87 84 Respiratory Rate 22 Blood Pressure 123/63 Pulse Oximetry 97 10/24/17 22:00 10/25/17 00:00 10/25/17 02:00 Temperature 97.7 F Pulse Rate 75 86 85 Respiratory Rate 20 Blood Pressure 144/63 H Pulse Oximetry 10/25/17 04:00 10/25/17 06:00 10/25/17 08:00 Temperature 97.9 F 98 F Pulse Rate 74 75 85 Respiratory Rate 20 Blood Pressure 141/60 H 142/66 H Pulse Oximetry 98 10/25/17 10:00 Temperature Pulse Rate 82 Respiratory Rate Blood Pressure Pulse Oximetry Intake & Output 10/24/17 10/25/17 10/25/17 18:59 06:59 18:59 Intake Total 1250 / 1250 1150 / 1150 300 / 300 Output Total 1500 / 1500 300 / 300 Balance -250 / -250 850 / 850 300 / 300 Weight 96.4 kg Intake: IV 1250 / 1250 1150 / 1150 300 / 300 D5W Inj 1,000 ML @ 84 mls/hr IV 1000 / 1000 .CONT .[id number] [facility] Rx#:[id number] Azithromycin Inj 500 MG In NS 250 / 250 250 / 250 Inj 250 ML @ 250 mls/hr IV.SIG Q24H [facility] Rx#:[id number] Zosyn 3.375 GM Premix 50 ML @ 150 / 150 50 / 50 50 / 50 100 mls/hr IV.SIG Q6H [facility] Rx#: [id number] KCl 20 mEq Premix Inj 20 meq In 100 / 100 100 ml @ 50 mls/hr IV.SIG Q2H [facility] Rx#:[id number] Output: Urine Amount (Catheter) 950 / 950 Indwelling Urethral Catheter 950 / 950 Gastric Drainage 550 / 550 300 / 300 Left Nare Nasogastric Tube 550 / 550 300 / 300 Other: Date of Last Bowel Movement 10/24/17 10/24/17 10/24/17 # Bowel Movements 1 - Routine Abdominal Exam Present: soft (distension +bs) - Routine Exam Penile: Absent: hypospadia - Urinary Catheter Management Indwelling Urethral Catheter Cath placed during this visit: yes Reason for continuing: Acute urinary retention Insertion date: 10/17/17 Insertion time: 17:30 Assessment and Plan - Plan pancreatits, ileus- still with distension SBFT shows partial sbo, pancreatitis, patient appears improving but still moving slow +bowel sounds still with distension PLAN NPO, NG tube- ok to clamp check residule q4, if nausea or high residule reconnect to sxn abdominal exams labs recommend TPN will follow ok for ice chips sparingly encourage oob to chair
[2017-10-25] MEDS: Pantoprazole Inj 40 MG Vial IV.PUSH SCH (13:51)
--- NOTE | 2017-10-25 19:02 | P.PN ---
Subjective Interval history: Follow-up for pancreatitis, small bowel obstruction. Mr. Guillen is resting in bed, NG tube in place. No fever, chills. Abdomen still distended. is at bedside. Physical Exam Vital signs: Vital Signs 10/24/17 19:41 10/24/17 20:00 10/24/17 22:00 Temperature Pulse Rate 84 75 Respiratory Rate 22 Blood Pressure 123/63 Pulse Oximetry 97 10/25/17 00:00 10/25/17 02:00 10/25/17 04:00 Temperature 97.7 F 97.9 F Pulse Rate 86 85 74 Respiratory Rate 20 Blood Pressure 144/63 H 141/60 H Pulse Oximetry 10/25/17 06:00 10/25/17 08:00 10/25/17 10:00 Temperature 97.8 F Pulse Rate 75 85 82 Respiratory Rate 20 Blood Pressure 142/66 H Pulse Oximetry 98 10/25/17 12:00 10/25/17 14:00 10/25/17 16:00 Temperature 98 F Pulse Rate 85 86 88 Respiratory Rate 24 Blood Pressure 143/64 H Pulse Oximetry 96 Intake & Output 10/24/17 10/25/17 10/25/17 18:59 06:59 18:59 Intake Total 1250 / 1250 1150 / 1150 1350 / 1350 Output Total 1500 / 1500 300 / 300 Balance -250 / -250 850 / 850 1350 / 1350 Weight 96.4 kg Intake: IV 1250 / 1250 1150 / 1150 1350 / 1350 D5W Inj 1,000 ML @ 84 mls/hr IV 1000 / 1000 1000 / 1000 .CONT .[id number] [facility] Rx#:[id number] Azithromycin Inj 500 MG In NS 250 / 250 250 / 250 Inj 250 ML @ 250 mls/hr IV.SIG Q24H [facility] Rx#:[id number] Zosyn 3.375 GM Premix 50 ML @ 150 / 150 50 / 50 100 / 100 100 mls/hr IV.SIG Q6H [facility] Rx#: [id number] KCl 20 mEq Premix Inj 20 meq In 100 / 100 100 ml @ 50 mls/hr IV.SIG Q2H [facility] Rx#:[id number] Output: Urine Amount (Catheter) 950 / 950 Indwelling Urethral Catheter 950 / 950 Gastric Drainage 550 / 550 300 / 300 Left Nare Nasogastric Tube 550 / 550 300 / 300 Other: Date of Last Bowel Movement 10/24/17 10/24/17 10/24/17 # Bowel Movements 1 Narrative: GENERAL: Alert, NAD. NG tube in place. SKIN: Warm and dry. HEAD: Normocephalic. EYES: No scleral icterus. No injection or drainage. NECK: Supple, trachea midline. No JVD or lymphadenopathy. CARDIOVASCULAR: Regular rate and rhythm without murmurs, gallops, or rubs. RESPIRATORY: Breath sounds equal bilaterally. No accessory muscle use. GASTROINTESTINAL: Abdomen soft, BS+, non-tender to palpation. Somewhat distended. MUSCULOSKELETAL: No cyanosis, or edema. BACK: Nontender without obvious deformity. No CVA tenderness. - Urinary Catheter Management Indwelling Urethral Catheter Cath placed during this visit: yes, but has since been removed by the nurse Reason for continuing: Decision to DC catheter Insertion date: 10/17/17 Insertion time: 17:30 Removal date: 10/25/17 Removal time: 14:38 Results - Labs CBC & Chem 7: 10/24/17 05:56 10/25/17 00:34 Laboratory Results - last 24 hr 10/25/17 10/25/17 00:34 04:10 Potassium 3.2 L Lipase 1990 H - Procedures ERCP 10/18/2017 IMPRESSIONS: 1. A previously placed ampulla stent was seen extending from the orifice, removed by snare. 2. 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 3. Sphincterotomy done. 4. Ductal sweep with balloon and irrigation removing multiple variable size stones, sludge and debris. 5. Normal inclusion cholangiogram afterward Assessment and Plan - Assessment (1) Pancreatitis Code(s): K85.90 - Acute pancreatitis without necrosis or infection, unspecified Status: Acute (2) Ileus, postoperative Code(s): K91.89 - Other postprocedural complications and disorders of digestive system; K56.7 - Ileus, unspecified Status: Acute - Plan 87 year old male with history of choledocholithiasis and cholangitis status post recent ERCP admitted on 10/[address] abdominal [address] CT A/ P as well as lipase level indicate acute pancreatitis. Course has been complicated by ileus. Abdominal distention/ileus - Likely secondary to severe pancreatitis, recent ERCP - CT A/P 10/19 demonstrating distention of the distal esophagus, stomach, and proximal SI which could represent a partial ileus - GI following and recommended d/c NG tube and start clear liquid diet. - Compazine PRN nausea (avoid Zofran secondary to QT prolongation since giving a macrolide to cover for PNA) - Encourage OOB, working with PT - Incentive spirometer Acute pancreatitis - Lipase 9833 on admission, down to 1097 yesterday morning - CT A/P showing mod peripancreatic inflammatory stranding and persistent intra- and extrahepatic ductal dilation with CBD stent in place - GI consulted and patient underwent repeat ERCP 10/18 with stent removal, sphincterotomy, and stone removal - Pain control Acute Kidney Injury Hypernatremia Hypokalemia - Creatinine starting to trend down: 1.27 ==> 1.53. - U/A with elevated protein and moderate blood - Elevated BUN:Cr ratio likely indicating a pre-renal component though intrinsic injury can be compounding - D5W to correct hypernatremia - BMP in the AM. Pneumonia - Continue Zosyn and Azithromycin - Supplemental O2 - DuoNeb PRN Anemia - Acute on chronic - H&H trending down (8.1 --> 7.5) - MCV elevated - Monitor closely - Transfuse if Hb<7. Hgb 7.5 on 10/24/2017. - GI following Atrial fibrillation - Telemetry showing atrial fibrillation - EKG on admission showing 1st degree AV block right RBBB - AFIB may be from acute illness - Currently rate-controlled for the most part Full code. SCDs.
[2017-10-25] MEDS ORDERED: [UNRECOGNIZED DRUG - OTHER] IV.SIG SCH (20:00)
[2017-10-25] MEDS ORDERED: FOLIC ACID IV.SIG SCH (20:00)
[2017-10-25] MEDS ORDERED: MULTIVITAMIN IV.SIG SCH (20:00)
[2017-10-25] MEDS ORDERED: AMINO ACIDS IV.SIG SCH (20:00)
[2017-10-26] MEDS: Piperacil/Tazo 3.375 GM Premix 50 ML IV.SIG SCH ×4 (00:06→17:00)
[2017-10-26 04:31] LABS: Calcium 7.8 mg/dL (8.5-10.1); Carbon Dioxide 29.2 meq/L (21.0-32.0)
[2017-10-26] MEDS: Dextrose 5% in Water Inj 1,000 ML IV.CONT SCH ×2 (04:32→11:28)
[2017-10-26 04:34] LABS: Potassium 2.9 meq/L (3.5-5.1)
[2017-10-26] MEDS: Senna/Docusate Sodium 8.6/50 MG Tablet PO SCH ×3 (09:04→23:02)
[2017-10-26] MEDS: Azithromycin Inj 500 MG in Sodium Chlor 0.9% Inj 250 ML IV.SIG SCH (09:04)
[2017-10-26] MEDS: Heparin Central Flush 100 UNIT/ML 5 ML Vial IV.FLUSH SCH (09:05)
--- NOTE | 2017-10-26 12:01 | P.PN ---
Subjective Interval history: Patient reports pain/abdominal discomfort about the same as yesterday Physical Exam Vital signs: Vital Signs 10/25/17 12:00 10/25/17 14:00 10/25/17 16:00 Temperature 98 F 97.6 F Pulse Rate 85 86 88 Respiratory Rate 24 22 Blood Pressure 143/64 H 147/63 H Pulse Oximetry 96 96 10/25/17 18:00 10/25/17 20:00 10/25/17 20:27 Temperature 98.2 F Pulse Rate 83 91 H Respiratory Rate 22 Blood Pressure 135/64 Pulse Oximetry 95 95 10/26/17 00:00 10/26/17 02:00 10/26/17 04:00 Temperature 98.5 F 99.5 F Pulse Rate 79 91 H 79 Respiratory Rate 24 22 Blood Pressure 123/61 133/60 Pulse Oximetry 98 96 10/26/17 06:00 10/26/17 07:00 10/26/17 08:00 Temperature Pulse Rate 97 H 92 H Respiratory Rate 29 H Blood Pressure 157/68 H Pulse Oximetry 93 L 94 L 10/26/17 11:32 Temperature Pulse Rate Respiratory Rate 30 H Blood Pressure Pulse Oximetry Intake & Output 10/25/17 10/26/17 10/26/17 18:59 06:59 18:59 Intake Total 2360 / 2360 1050 / 1050 1550 / 1550 Output Total 950 / 950 Balance 1410 / 1410 1050 / 1050 1550 / 1550 Weight 99.2 kg Intake: IV 1400 / 1400 1050 / 1050 1550 / 1550 D5W Inj 1,000 ML @ 84 mls/hr IV 1000 / 1000 1000 / 1000 1000 / 1000 .CONT .[id number] [facility] Rx#:[id number] Azithromycin Inj 500 MG In NS 250 / 250 250 / 250 Inj 250 ML @ 250 mls/hr IV.SIG Q24H [facility] Rx#:[id number] Intralipid 20% Inj 250 ML @ 31. 250 / 250 25 mls/hr IV.SIG DAILY@2000 [facility] Rx#:[id number] Zosyn 3.375 GM Premix 50 ML @ 150 / 150 50 / 50 50 / 50 100 mls/hr IV.SIG Q6H [facility] Rx#: [id number] Oral 960 / 960 Output: Urine Amount (Catheter) 950 / 950 Indwelling Urethral Catheter 950 / 950 Other: Date of Last Bowel Movement 10/25/17 10/25/17 10/26/17 # Bowel Movements 1 - Routine Abdominal Exam Present: distended Comments: No guarding or rebound Passing flatus while I was in room - Urinary Catheter Management Indwelling Urethral Catheter Cath placed during this visit: yes, but has since been removed by the nurse Reason for continuing: Decision to DC catheter Insertion date: 10/17/17 Insertion time: 17:30 Removal date: 10/25/17 Removal time: 14:38 Results - Labs CBC & Chem 7: 10/24/17 05:56 10/26/17 03:40 Laboratory Results - last 24 hr 10/26/17 03:40 Sodium 148 H Potassium 2.9 L* Chloride 111 H Carbon Dioxide 29.2 Anion Gap 8 BUN 25 H Creatinine 1.39 H Estimated GFR 49 L Random Glucose 198 H Calcium 7.8 L - Procedures ERCP 10/18/2017 IMPRESSIONS: 1. A previously placed ampulla stent was seen extending from the orifice, removed by snare. 2. 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 3. Sphincterotomy done. 4. Ductal sweep with balloon and irrigation removing multiple variable size stones, sludge and debris. 5. Normal inclusion cholangiogram afterward Assessment and Plan - Assessment (1) Pancreatitis Code(s): K85.90 - Acute pancreatitis without necrosis or infection, unspecified Status: Acute Plan: Continue nonoperative management - Plan Continue non-operative management Discussed Condition With: Patient and
--- NOTE | 2017-10-26 16:05 | P.PN ---
Subjective Interval history: Follow-up for pancreatitis, partial small bowel obstruction. Patient is sitting in his chair. Reports no abdominal pain but feels overall fatigued. No fever, chills. Had BM. Physical Exam Vital signs: Vital Signs 10/25/17 18:00 10/25/17 20:00 10/25/17 20:27 Temperature 98.2 F Pulse Rate 83 91 H Respiratory Rate 22 Blood Pressure 135/64 Pulse Oximetry 95 95 10/26/17 00:00 10/26/17 02:00 10/26/17 04:00 Temperature 98.5 F 99.5 F Pulse Rate 79 91 H 79 Respiratory Rate 24 22 Blood Pressure 123/61 133/60 Pulse Oximetry 98 96 10/26/17 06:00 10/26/17 07:00 10/26/17 08:00 Temperature Pulse Rate 97 H 92 H Respiratory Rate 29 H Blood Pressure 157/68 H Pulse Oximetry 93 L 94 L 10/26/17 11:32 10/26/17 12:00 Temperature 100.1 F H Pulse Rate 85 Respiratory Rate 30 H 31 H Blood Pressure 149/67 H Pulse Oximetry 95 Intake & Output 10/25/17 10/26/17 10/26/17 18:59 06:59 18:59 Intake Total 2360 / 2360 1050 / 1050 1600 / 1600 Output Total 950 / 950 Balance 1410 / 1410 1050 / 1050 1600 / 1600 Weight 99.2 kg Intake: IV 1400 / 1400 1050 / 1050 1600 / 1600 D5W Inj 1,000 ML @ 84 mls/hr IV 1000 / 1000 1000 / 1000 1000 / 1000 .CONT .[id number] [facility] Rx#:[id number] Azithromycin Inj 500 MG In NS 250 / 250 250 / 250 Inj 250 ML @ 250 mls/hr IV.SIG Q24H [facility] Rx#:[id number] Intralipid 20% Inj 250 ML @ 31. 250 / 250 25 mls/hr IV.SIG DAILY@2000 [facility] Rx#:[id number] Zosyn 3.375 GM Premix 50 ML @ 150 / 150 50 / 50 100 / 100 100 mls/hr IV.SIG Q6H [facility] Rx#: [id number] Oral 960 / 960 Output: Urine Amount (Catheter) 950 / 950 Indwelling Urethral Catheter 950 / 950 Other: Date of Last Bowel Movement 10/25/17 10/25/1718 # Bowel Movements 1 Narrative: GENERAL: Alert, NAD. NG tube in place. SKIN: Warm and dry. HEAD: Normocephalic. EYES: No scleral icterus. No injection or drainage. NECK: Supple, trachea midline. No JVD or lymphadenopathy. CARDIOVASCULAR: Regular rate and rhythm without murmurs, gallops, or rubs. RESPIRATORY: Breath sounds equal bilaterally. No accessory muscle use. GASTROINTESTINAL: Abdomen soft, BS+, non-tender to palpation. Somewhat distended. MUSCULOSKELETAL: No cyanosis, or edema. BACK: Nontender without obvious deformity. No CVA tenderness. - Urinary Catheter Management Indwelling Urethral Catheter Cath placed during this visit: yes, but has since been removed by the nurse Reason for continuing: Decision to DC catheter Insertion date: 10/17/17 Insertion time: 17:30 Removal date: 10/25/17 Removal time: 14:38 Results - Labs CBC & Chem 7: 10/24/17 05:56 10/26/17 03:40 Laboratory Results - last 24 hr 10/26/17 03:40 Sodium 148 H Potassium 2.9 L* Chloride 111 H Carbon Dioxide 29.2 Anion Gap 8 BUN 25 H Creatinine 1.39 H Estimated GFR 49 L Random Glucose 198 H Calcium 7.8 L - Procedures ERCP 10/18/2017 IMPRESSIONS: 1. A previously placed ampulla stent was seen extending from the orifice, removed by snare. 2. 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 3. Sphincterotomy done. 4. Ductal sweep with balloon and irrigation removing multiple variable size stones, sludge and debris. 5. Normal inclusion cholangiogram afterward Assessment and Plan - Assessment (1) Pancreatitis Code(s): K85.90 - Acute pancreatitis without necrosis or infection, unspecified Status: Acute (2) Ileus, postoperative Code(s): K91.89 - Other postprocedural complications and disorders of digestive system; K56.7 - Ileus, unspecified Status: Acute - Plan 87 year old male with history of choledocholithiasis and cholangitis status post recent ERCP admitted on 10/[address] CT A/ P as well as lipase level indicate acute pancreatitis. Course has been complicated by ileus. Pancreatitis Partial small bowel obstruction - Likely secondary to severe pancreatitis, recent ERCP - NG Tube discontinued. Patient is on clear liquid and TPN. Tolerating well. - Encourage OOB, working with PT - Incentive spirometer - CT A/P showing mod peripancreatic inflammatory stranding and persistent intra- and extrahepatic ductal dilation with CBD stent in place - GI consulted and patient underwent repeat ERCP 10/18 with stent removal, sphincterotomy, and stone removal Acute Kidney Injury Hypernatremia Hypokalemia - Creatinine starting to trend down: 1.27 ==> 1.53. - Na is improved 154 --> 148. - K+ 2.9, received 80meQ of KCL PO. Will check BMP in the AM. - U/A with elevated protein and moderate blood - Elevated BUN:Cr ratio likely indicating a pre-renal component though intrinsic injury can be compounding - D5W to correct hypernatremia Pneumonia - Continue Zosyn and Azithromycin - Supplemental O2 - DuoNeb PRN Anemia - Acute on chronic - H&H trending down (8.1 --> 7.5) - MCV elevated - Monitor closely - Transfuse if Hb<7. Hgb 7.5 on 10/24/2017. - GI following Atrial fibrillation - Telemetry showing atrial fibrillation - EKG on admission showing 1st degree AV block right RBBB - AFIB may be from acute illness - Currently rate-controlled for the most part Full code. SCDs.
[2017-10-26] MEDS: Pantoprazole Inj 40 MG Vial IV.PUSH SCH (16:30)
--- NOTE | 2017-10-26 17:59 | P.PNGI ---
Subjective Interval history: Patient laying in bed about the same no new complaints feeling weak and fatigued tired Physical Exam Vital signs: Vital Signs 10/25/17 18:00 10/25/17 20:00 10/25/17 20:27 Temperature 98.2 F Pulse Rate 83 91 H Respiratory Rate 22 Blood Pressure 135/64 Pulse Oximetry 95 95 10/26/17 00:00 10/26/17 02:00 10/26/17 04:00 Temperature 98.5 F 99.5 F Pulse Rate 79 91 H 79 Respiratory Rate 24 22 Blood Pressure 123/61 133/60 Pulse Oximetry 98 96 10/26/17 06:00 10/26/17 07:00 10/26/17 08:00 Temperature Pulse Rate 97 H 92 H Respiratory Rate 29 H Blood Pressure 157/68 H Pulse Oximetry 93 L 94 L 10/26/17 11:32 10/26/17 12:00 10/26/17 16:00 Temperature 100.1 F H 98.4 F Pulse Rate 85 92 H Respiratory Rate 30 H 31 H 30 H Blood Pressure 149/67 H 134/60 Pulse Oximetry 95 97 Intake & Output 10/25/17 10/26/17 10/26/17 18:59 06:59 18:59 Intake Total 2360 / 2360 1050 / 1050 2500 / 2500 Output Total 950 / 950 450 / 450 Balance 1410 / 1410 1050 / 1050 2050 / 2050 Weight 99.2 kg Intake: IV 1400 / 1400 1050 / 1050 1650 / 1650 D5W Inj 1,000 ML @ 84 mls/hr IV 1000 / 1000 1000 / 1000 1000 / 1000 .CONT .[id number] [facility] Rx#:[id number] Azithromycin Inj 500 MG In NS 250 / 250 250 / 250 Inj 250 ML @ 250 mls/hr IV.SIG Q24H [facility] Rx#:[id number] Intralipid 20% Inj 250 ML @ 31. 250 / 250 25 mls/hr IV.SIG DAILY@2000 [facility] Rx#:[id number] Zosyn 3.375 GM Premix 50 ML @ 150 / 150 50 / 50 150 / 150 100 mls/hr IV.SIG Q6H [facility] Rx#: [id number] Oral 960 / 960 850 / 850 Output: Urine Amount (Catheter) 950 / 950 450 / 450 Indwelling Urethral Catheter 950 / 950 450 / 450 Other: # Voids 1 Date of Last Bowel Movement 10/25/17 10/25/17 10/26/17 # Bowel Movements 1 1 - Constitutional no acute distress - Routine HEENT Exam Head: Present: normocephalic, atraumatic Eye: Present: EOMI - Routine Neck Exam Present: supple - Routine Respiratory Exam Present: decreased breath sounds - Routine Cardiovascular Exam Present: RRR - Routine Abdominal Exam Present: distended Comments: Moderately distended tympanic very little tenderness no rebound no guarding - Routine Extremities Exam Present: edema - Urinary Catheter Management Indwelling Urethral Catheter Cath placed during this visit: yes, but has since been removed by the nurse Reason for continuing: Decision to DC catheter Insertion date: 10/17/17 Insertion time: 17:30 Removal date: 10/25/17 Removal time: 14:38 Results - Labs CBC & Chem 7: 10/24/17 05:56 10/26/17 03:40 Laboratory Results - last 24 hr 10/26/17 03:40 Sodium 148 H Potassium 2.9 L* Chloride 111 H Carbon Dioxide 29.2 Anion Gap 8 BUN 25 H Creatinine 1.39 H Estimated GFR 49 L Random Glucose 198 H Calcium 7.8 L - Procedures ERCP 10/18/2017 IMPRESSIONS: 1. A previously placed ampulla stent was seen extending from the orifice, removed by snare. 2. 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 3. Sphincterotomy done. 4. Ductal sweep with balloon and irrigation removing multiple variable size stones, sludge and debris. 5. Normal inclusion cholangiogram afterward Assessment and Plan (1) Cholangitis Status: Acute Code(s): K83.0 - Cholangitis (2) Elevated LFTs Status: Acute Code(s): R94.5 - Abnormal results of liver function studies (3) Pancreatitis Status: Acute Code(s): K85.90 - Acute pancreatitis without necrosis or infection, unspecified - Plan Assessment: - Elevated LFTs and pancreatitis with recent ERCP with findings of biliary sludge and bile duct dilatation S/P balloon sweep and plastic stent placement on 10/11- Pt with history of choledocholithiasis and cholangitis. History of cholecystectomy. Complaining of: upper abdominal pain that began at 9pm last night after dinner at 8pm, constant, described as "hunger pains". Denies associated fever, chills, nausea, vomiting. Denies history of pancreatitis. Denies ETOH. CT abdomen and pelvis W IV contrast (10/17) Moderate peripancreatic inflammatory stranding consistent with pancreatitis. Pancreas enhances uniformly and there is no peripancreatic fluid collection at this time. Interval placement of CBD stent with persistent intra and extra hepatic ductal dilatation. Focal adynamic ileus in the proximal jejunum secondary to the peripancreatic inflammatory changes S/P ERCP (10/18) --> A previously placed ampulla stent was seen extending from the orifice, removed by snare. 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 Sphincterotomy done. Ductal sweep with balloon and irrigation removing multiple variable size stones, sludge and debris. Normal inclusion cholangiogram afterward Repeat CT abdomen and pelvis (10/19) --> Consistent with pancreatitis, new dilatation in the distal esophagus, stomach, and proximal small bowel, contrast is seen to reach the colon which could be asymmetric ileus, some degree of obstruction cannot be excluded. Pneumobilia, previously seen biliary duct stent has been removed, CBD is dilated measuring 1.8 cm. 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 Abdomen remains distended, firm. Denies BM and passing gas. NGT to LIWS with continued large amounts of output. Leukocytosis improving, pt remains on Zosyn. No repeat LFTs or lipase from today (10/22) Pt with no improvement today. Abdomen remains distended. Denies flatus and BM. States has been burping a lot. Still with NG to LIWS, output slowing down. Discussed with at bedside who is concerned regarding his lack of nutrition. Increase in T bili today, LFTs WNL. H/H trending down since two days ago, no obvious source of GIB. (10/23) Pt on bedpan during my visit, feels like he needs to have a BM. Abdomen remains distended, no nausea or vomiting. Continued output from NG tube. SBFT --> Findings suggest a partial mid to distal SBO. GS following. T bili remains elevated. Direct-3.5 Indirect-1.2 (10/24) Pt had BM yesterday and BM today, passing gas. Abdomen less distended and softer. NG with slowed output. T bili improving. Lipase remains about the same. 10/25/2017. Awake but appears very weak. Active bowel sounds today, NG tube clamped this a.m. but will need residual checks at least every 4 hours and drained with low intermittent suction if nausea or vomiting. Spoke with surgeon this a.m. who is considering TPN until patient can tolerate p.o. fluids. No surgical plans at this time. Anemia, current hemoglobin 7.5 2017, bilirubin 2.3 with normal LFTs. Gradual decrease in lipase level 1989. Slow but some gradual improvement. Plan: Patient seems to be tolerating clear liquids NG tube has been removed and the patient appears to be stable Plan to start TPN Monitor labs and transfuse as needed Need to continue with physical therapy and Occupational Therapy We will monitor labs
[2017-10-26] MEDS ORDERED: TPN FLUID IV.SIG SCH ×2 (20:00)
[2017-10-26] MEDS ORDERED: CLINIMIX IV.SIG SCH ×3 (20:00)
[2017-10-27] MEDS: Dextrose 5% in Water Inj 1,000 ML IV.CONT SCH ×2 (02:37→14:18)
[2017-10-27] MEDS: Piperacil/Tazo 3.375 GM Premix 50 ML IV.SIG SCH ×4 (02:40→18:31)
[2017-10-27 04:38] LABS: Mean Corpuscular Hemoglobin 36.1 pg (27.0-34.0); Mean Corpuscular Volume 109.4 fL (80.0-100.0); Mean Platelet Volume 9.7 fL (7.0-11.0); Platelet Count 140 th/mm3 (150-450); Red Blood Count 1.68 mil/mm3 (4.50-5.90); Red Cell Distribution Width 30.1 % (11.6-17.2); White Blood Count 10.2 th/mm3 (4.0-11.0)
[2017-10-27 04:52] LABS: Hemoglobin 6.1 gm/dL (13.0-17.0)
[2017-10-27 04:53] LABS: Hematocrit 18.3 % (39.0-51.0)
[2017-10-27 05:02] LABS: Albumin 1.8 g/dL (3.4-5.0); Anion Gap 9 meq/L (5-15); Aspartate Aminotransferase 23 U/L (15-37); Blood Urea Nitrogen 26 mg/dL (7-18); Calcium 8.1 mg/dL (8.5-10.1); Carbon Dioxide 25.6 meq/L (21.0-32.0); Chloride 109 meq/L (98-107); Glucose,Random 218 mg/dL (74-106); Potassium 3.2 meq/L (3.5-5.1); Sodium 144 meq/L (136-145)
[2017-10-27 05:03] LABS: Alanine Aminotransferase 22 U/L (12-78)
[2017-10-27 05:05] LABS: Alkaline Phosphatase 70 U/L (45-117); Lipase 2072 U/L (73-393); Total Protein 5.5 g/dL (6.4-8.2)
[2017-10-27] MEDS ORDERED: Sodium Chlor 0.9% Inj 250 ML IV.SIG SCH (06:00)
--- NOTE | 2017-10-27 09:32 | P.PNGI ---
Subjective Interval history: Pt resting in bed, reports 2 BMs yesterday 1 of which was very large. Denies any nausea and vomiting. Has been tolerating some clear liquids. Denies any abdominal pain. Also reports he is feeling weak but does feel like he is improving. <Alley Ruiz - Last Filed: 10/27/17 09:27> Physical Exam Vital signs: Vital Signs 10/26/17 11:32 10/26/17 12:00 10/26/17 16:00 Temperature 100.1 F H 98.4 F Pulse Rate 85 92 H Respiratory Rate 30 H 31 H 30 H Blood Pressure 149/67 H 134/60 Pulse Oximetry 95 97 10/26/17 20:00 10/26/17 20:46 10/26/17 22:00 Temperature 99.5 F Pulse Rate 75 71 Respiratory Rate 22 Blood Pressure 133/62 Pulse Oximetry 98 97 10/27/17 00:00 10/27/17 02:00 10/27/17 04:00 Temperature 99 F 99 F Pulse Rate 80 80 82 Respiratory Rate 24 18 Blood Pressure 139/63 152/70 H Pulse Oximetry 95 95 10/27/17 06:00 10/27/17 08:25 Temperature Pulse Rate 88 Respiratory Rate Blood Pressure Pulse Oximetry 96 Intake & Output 10/26/17 10/27/17 10/27/17 18:59 06:59 18:59 Intake Total 2500 / 2500 710 / 710 Output Total 450 / 450 1100 / 1100 Balance 2049 / 2049 -390 / -390 Weight 99.2 kg 98.5 kg Intake: IV 1650 / 1650 50 / 50 D5W Inj 1,000 ML @ 84 mls/hr IV 1000 / 1000 .CONT .[id number] [facility] Rx#:[id number] Azithromycin Inj 500 MG In NS 250 / 250 Inj 250 ML @ 250 mls/hr IV.SIG Q24H [facility] Rx#:[id number] Intralipid 20% Inj 250 ML @ 31. 250 / 250 25 mls/hr IV.SIG DAILY@2000 [facility] Rx#:[id number] Zosyn 3.375 GM Premix 50 ML @ 150 / 150 50 / 50 100 mls/hr IV.SIG Q6H [facility] Rx#: [id number] Oral 850 / 850 660 / 660 Output: Urine 1100 / 1100 Urine Amount (Catheter) 450 / 450 Indwelling Urethral Catheter 450 / 450 Other: # Voids 1 # Urine Diapers 2 Date of Last Bowel Movement 10/26/17 10/27/17 # Bowel Movements 1 2 - Constitutional no acute distress - Routine HEENT Exam Head: Present: normocephalic, atraumatic - Routine Respiratory Exam Absent: accessory muscle use - Routine Abdominal Exam Present: normoactive bowel sounds, distended, firm. Absent: tenderness - Routine Skin Exam Present: dry, warm - Routine Neurological Exam Present: alert, oriented X3 - Urinary Catheter Management Indwelling Urethral Catheter Cath placed during this visit: yes, but has since been removed by the nurse Reason for continuing: Decision to DC catheter Insertion date: 10/17/17 Insertion time: 17:30 Removal date: 10/25/17 Removal time: 14:38 <Alley Ruiz - Last Filed: 10/27/17 09:27> Vital signs: Vital Signs 10/26/17 16:00 10/26/17 20:00 10/26/17 20:46 Temperature 98.4 F 99.5 F Pulse Rate 92 H 75 Respiratory Rate 30 H 22 Blood Pressure 134/60 133/62 Pulse Oximetry 97 98 97 10/26/17 22:00 10/27/17 00:00 10/27/17 02:00 Temperature 99 F Pulse Rate 71 80 80 Respiratory Rate 24 Blood Pressure 139/63 Pulse Oximetry 95 10/27/17 04:00 10/27/17 06:00 10/27/17 08:25 Temperature 99 F Pulse Rate 82 88 Respiratory Rate 18 Blood Pressure 152/70 H Pulse Oximetry 95 96 10/27/17 11:33 Temperature 98.2 F Pulse Rate 81 Respiratory Rate 2 L Blood Pressure 138/63 Pulse Oximetry 99 Intake & Output 10/26/17 10/27/17 10/27/17 18:59 06:59 18:59 Intake Total 2500 / 2500 710 / 710 0 / 0 Output Total 450 / 450 1100 / 1100 Balance 2049 / 2049 -390 / -390 0 / 0 Weight 99.2 kg 98.5 kg Intake: IV 1650 / 1650 50 / 50 D5W Inj 1,000 ML @ 84 mls/hr IV 1000 / 1000 .CONT .[id number] [facility] Rx#:[id number] Azithromycin Inj 500 MG In NS 250 / 250 Inj 250 ML @ 250 mls/hr IV.SIG Q24H [facility] Rx#:[id number] Intralipid 20% Inj 250 ML @ 31. 250 / 250 25 mls/hr IV.SIG DAILY@2000 [facility] Rx#:[id number] Zosyn 3.375 GM Premix 50 ML @ 150 / 150 50 / 50 100 mls/hr IV.SIG Q6H [facility] Rx#: [id number] Oral 850 / 850 660 / 660 Intake (Blood Product) Amt 0 / 0 Rbc As-3 Leukoreduced Unit 0 / 0 [id number] Output: Urine 1100 / 1100 Urine Amount (Catheter) 450 / 450 Indwelling Urethral Catheter 450 / 450 Other: # Voids 1 # Urine Diapers 2 Date of Last Bowel Movement 10/26/17 10/27/17 # Bowel Movements 1 2 - Urinary Catheter Management Indwelling Urethral Catheter Cath placed during this visit: no <Genaro Bravo - Last Filed: 10/27/17 12:39> Results - Labs CBC & Chem 7: 10/27/17 04:10 10/27/17 04:10 Laboratory Results - last 24 hr 10/27/17 10/27/17 10/27/17 04:10 04:10 06:50 WBC 10.2 RBC 1.68 L Hgb 6.1 L* Hct 18.3 L* MCV 109.4 H MCH 36.1 H MCHC 33.0 RDW 30.1 H Plt Count 140 L MPV 9.7 Sodium 144 Potassium 3.2 L Chloride 109 H Carbon Dioxide 25.6 Anion Gap 9 BUN 26 H Creatinine 1.41 H Random Glucose 218 H Calcium 8.1 L Total Bilirubin 1.5 H AST 23 ALT 22 Alkaline Phosphatase 70 Total Protein 5.5 L Albumin 1.8 L Lipase 2072 H Blood Type O Positive Antibody Screen Negative MTS Gel Crossmatch See Detail - Procedures ERCP 10/18/2017 IMPRESSIONS: 1. A previously placed ampulla stent was seen extending from the orifice, removed by snare. 2. 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 3. Sphincterotomy done. 4. Ductal sweep with balloon and irrigation removing multiple variable size stones, sludge and debris. 5. Normal inclusion cholangiogram afterward <Alley Ruiz - Last Filed: 10/27/17 09:27> - Labs CBC & Chem 7: 10/27/17 04:10 10/27/17 04:10 Laboratory Results - last 24 hr 10/27/17 10/27/17 10/27/17 04:10 04:10 06:50 WBC 10.2 RBC 1.68 L Hgb 6.1 L* Hct 18.3 L* MCV 109.4 H MCH 36.1 H MCHC 33.0 RDW 30.1 H Plt Count 140 L MPV 9.7 Sodium 144 Potassium 3.2 L Chloride 109 H Carbon Dioxide 25.6 Anion Gap 9 BUN 26 H Creatinine 1.41 H Random Glucose 218 H Calcium 8.1 L Total Bilirubin 1.5 H AST 23 ALT 22 Alkaline Phosphatase 70 Total Protein 5.5 L Albumin 1.8 L Lipase 2072 H Blood Type O Positive Antibody Screen Negative MTS Gel Crossmatch See Detail <Genaro Bravo - Last Filed: 10/27/17 12:39> Assessment and Plan (1) Cholangitis Status: Acute Code(s): K83.0 - Cholangitis (2) Elevated LFTs Status: Acute Code(s): R94.5 - Abnormal results of liver function studies (3) Pancreatitis Status: Acute Code(s): K85.90 - Acute pancreatitis without necrosis or infection, unspecified - Plan Assessment: - Elevated LFTs and pancreatitis with recent ERCP with findings of biliary sludge and bile duct dilatation S/P balloon sweep and plastic stent placement on 10/11- Pt with history of choledocholithiasis and cholangitis. History of cholecystectomy. Complaining of: upper abdominal pain that began at 9pm last night after dinner at 8pm, constant, described as "hunger pains". Denies associated fever, chills, nausea, vomiting. Denies history of pancreatitis. Denies ETOH. CT abdomen and pelvis W IV contrast (10/17) Moderate peripancreatic inflammatory stranding consistent with pancreatitis. Pancreas enhances uniformly and there is no peripancreatic fluid collection at this time. Interval placement of CBD stent with persistent intra and extra hepatic ductal dilatation. Focal adynamic ileus in the proximal jejunum secondary to the peripancreatic inflammatory changes S/P ERCP (10/18) --> A previously placed ampulla stent was seen extending from the orifice, removed by snare. 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 Sphincterotomy done. Ductal sweep with balloon and irrigation removing multiple variable size stones, sludge and debris. Normal inclusion cholangiogram afterward Repeat CT abdomen and pelvis (10/19) --> Consistent with pancreatitis, new dilatation in the distal esophagus, stomach, and proximal small bowel, contrast is seen to reach the colon which could be asymmetric ileus, some degree of obstruction cannot be excluded. Pneumobilia, previously seen biliary duct stent has been removed, CBD is dilated measuring 1.8 cm. 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 Abdomen remains distended, firm. Denies BM and passing gas. NGT to LIWS with continued large amounts of output. Leukocytosis improving, pt remains on Zosyn. No repeat LFTs or lipase from today (10/22) Pt with no improvement today. Abdomen remains distended. Denies flatus and BM. States has been burping a lot. Still with NG to LIWS, output slowing down. Discussed with at bedside who is concerned regarding his lack of nutrition. Increase in T bili today, LFTs WNL. H/H trending down since two days ago, no obvious source of GIB. (10/23) Pt on bedpan during my visit, feels like he needs to have a BM. Abdomen remains distended, no nausea or vomiting. Continued output from NG tube. SBFT --> Findings suggest a partial mid to distal SBO. GS following. T bili remains elevated. Direct-3.5 Indirect-1.2 (10/24) Pt had BM yesterday and BM today, passing gas. Abdomen less distended and softer. NG with slowed output. T bili improving. Lipase remains about the same. 10/25/2017. Awake but appears very weak. Active bowel sounds today, NG tube clamped this a.m. but will need residual checks at least every 4 hours and drained with low intermittent suction if nausea or vomiting. Spoke with surgeon this a.m. who is considering TPN until patient can tolerate p.o. fluids. No surgical plans at this time. Anemia, current hemoglobin 7.5 2017, bilirubin 2.3 with normal LFTs. Gradual decrease in lipase level 1989. Slow but some gradual improvement. (10/27) 2 BMs yesterday, 1 large BM, states he did get good relief after BM. Abdomen is distended and firm. Denies nausea, vomiting, abdominal pain. Has been tolerating clear liquids. Remains on TPN. T bili trending down, LFTs WNL, lipase about the same Drop in H/H noted, no obvious source of GIB Plan: Continue clear liquids Continue TPN Monitor stools count Reglan Notify GI if any obvious source of GIB Further recommendations to follow Pt has been seen and examined by myself and Dr. Bravo and this note is written on his behalf <Alley Ruiz - Last Filed: 10/27/17 09:27> (1) Cholangitis Status: Acute Code(s): K83.0 - Cholangitis (2) Elevated LFTs Status: Acute Code(s): R94.5 - Abnormal results of liver function studies (3) Pancreatitis Status: Acute Code(s): K85.90 - Acute pancreatitis without necrosis or infection, unspecified - Attending Attestation Patient seen and examined Agree with above Continue with current supportive care Monitor labs Consider a GJ tube in preparation for discharge Need to minimize time on TPN <Genaro Bravo - Last Filed: 10/27/17 12:39>
[2017-10-27] MEDS: Azithromycin Inj 500 MG in Sodium Chlor 0.9% Inj 250 ML IV.SIG SCH (09:54)
[2017-10-27] MEDS: Heparin Central Flush 100 UNIT/ML 5 ML Vial IV.FLUSH SCH (09:55)
[2017-10-27] MEDS: Senna/Docusate Sodium 8.6/50 MG Tablet PO SCH ×2 (09:56→20:50)
--- NOTE | 2017-10-27 10:07 | P.DIET ---
Nutritional Evaluation Type of nutrition evaluation: follow-up Nutrition consult regarding: TPN/PPN ([facility] for TPN recs) Subjective Subjective Comments: Brought forward from previous note: Pt has been npo/liquids only since admission on 10/17. Per today's GI note pt is tolerating some clears. Objective - Diagnosis Acute Pancreatitis, Recent ERCP - Objective % IBW: 118 (IBW = 178#) Body Weight Used for Calculations: Actual (95.7 kg) Energy Needs - Lower Range (kCal/kg): 25 Energy Needs - Upper Range (kCal/kg): 30 Lower Limit kCal/kg (kCals): 2,393 Upper Limit kCal/kg (kCals): 2,871 Lower Limit Protein Factor (Grams per Kg): 1.0 Upper Limit Protein Factor (Grams per Kg): 1.5 Lower Protein Needs (Protein): 96 Upper Protein Needs (Protein): 144 Dietitian Reviewed in Medical Record: Current diet, Curent medications, Intake & Output, Labs, Medical history, TPN/PPN Diet Order: Clear Liquid Objective Comments: Labs: K 3.2, BUN/creat 26/1.41, est GFR 49, Glucose 218, Lipase 2072 +2BM, -UOP 1100ml Feeding - Current TPN/PPN Current PPN: Clinimix 4.25/5 (Renal Formula) Current TPN/PPN Rate (ml/hr): 83 Amino Acid and Dextrose Current kCals Provided: 680 Amino Acid and Dextrose Current Protein Provided: 85 Current Lipid Concentration: 20% Current Lipids Rate: 250 mls daily over 8 hours Current kCal Provided by TPN/PPN: 1,180 Assessment Assessment: Pt continues at high nutrition risk r/t diagnosis and need for TPN. Pt has basically been NPO or on liquids since 10/17. Tolerating small amounts of clears. GI note reviewed-NGT removed 10/26 and TPN started. To meet needs with TPN, Rec Clinimix 5/25 @ 83 mls/hr with same Lipids to provide a total of 2680 kcals and 100 gms protein. Hyperglycemia-Rec SSI and consider TPN w/insulin. Request weekly TG in setting of TPN and pancreatitis. Wt changes noted. Additional Recs r/t Clinical Course. Recommendations: 1.To meet needs with TPN, Rec Clinimix 5/25 @ 83 mls/hr with same Lipids 2.Hyperglycemia-Rec SSI and consider TPN w/insulin 3.Request weekly TG in setting of TPN and pancreatitis 4.Additional Recs r/t Clinical Course Dietitian to Monitor: Lab values, Electrolytes, Renal labs, Glucose level, Intake & Output, Diet tolerance, TPN/PPN tolerance, Weight change, PO Intake, Diet advancement, Medical course Comments: TG, Lipase
[2017-10-27] MEDS: Pantoprazole Inj 40 MG Vial IV.PUSH SCH (14:26)
[2017-10-27] MEDS ORDERED: Dextrose 50% in Water 50 ML Vial IV.PUSH PRN (14:34)
--- NOTE | 2017-10-27 14:50 | P.PN ---
Subjective Interval history: Follow-up for pancreatitis, partial small bowel obstruction. Patient is feeling well. Denies any abd pain, chest pain, SOB, fever, chills. is at bedside and very stressed out regarding her 's progress and his weakness. Physical Exam Vital signs: Vital Signs 10/26/17 16:00 10/26/17 20:00 10/26/17 20:46 Temperature 98.4 F 99.5 F Pulse Rate 92 H 75 Respiratory Rate 30 H 22 Blood Pressure 134/60 133/62 Pulse Oximetry 97 98 97 10/26/17 22:00 10/27/17 00:00 10/27/17 02:00 Temperature 99 F Pulse Rate 71 80 80 Respiratory Rate 24 Blood Pressure 139/63 Pulse Oximetry 95 10/27/17 04:00 10/27/17 06:00 10/27/17 08:25 Temperature 99 F Pulse Rate 82 88 Respiratory Rate 18 Blood Pressure 152/70 H Pulse Oximetry 95 96 10/27/17 11:33 10/27/17 13:57 Temperature 98.2 F 98.9 F Pulse Rate 81 97 H Respiratory Rate 2 L 30 H Blood Pressure 138/63 108/75 Pulse Oximetry 99 97 Intake & Output 10/26/17 10/27/17 10/27/17 18:59 06:59 18:59 Intake Total 2500 / 2500 760 / 760 0 / 0 Output Total 450 / 450 1100 / 1100 Balance 2050 / 2050 -340 / -340 0 / 0 Weight 99.2 kg 98.5 kg Intake: IV 1650 / 1650 100 / 100 D5W Inj 1,000 ML @ 84 mls/hr IV 1000 / 1000 .CONT .[id number] [facility] Rx#:[id number] Azithromycin Inj 500 MG In NS 250 / 250 Inj 250 ML @ 250 mls/hr IV.SIG Q24H [facility] Rx#:[id number] Intralipid 20% Inj 250 ML @ 31. 250 / 250 25 mls/hr IV.SIG DAILY@2000 [facility] Rx#:[id number] Zosyn 3.375 GM Premix 50 ML @ 150 / 150 100 / 100 100 mls/hr IV.SIG Q6H [facility] Rx#: [id number] Oral 850 / 850 660 / 660 Intake (Blood Product) Amt 0 / 0 Rbc As-3 Leukoreduced Unit 0 / 0 [id number] Rbc As-3 Leukoreduced Unit 0 / 0 [id number] Output: Urine 1100 / 1100 Urine Amount (Catheter) 450 / 450 Indwelling Urethral Catheter 450 / 450 Other: # Voids 1 # Urine Diapers 2 Date of Last Bowel Movement 10/26/17 10/27/17 # Bowel Movements 1 2 Narrative: GENERAL: Alert, NAD. SKIN: Warm and dry. HEAD: Normocephalic. EYES: No scleral icterus. No injection or drainage. NECK: Supple, trachea midline. No JVD or lymphadenopathy. CARDIOVASCULAR: Regular rate and rhythm without murmurs, gallops, or rubs. RESPIRATORY: Breath sounds equal bilaterally. No accessory muscle use. GASTROINTESTINAL: Abdomen moderately firm, BS+, non-tender to palpation. Remains distended. MUSCULOSKELETAL: No cyanosis, or edema. BACK: Nontender without obvious deformity. No CVA tenderness. - Urinary Catheter Management Indwelling Urethral Catheter Cath placed during this visit: yes, but has since been removed by the nurse Reason for continuing: Decision to DC catheter Insertion date: 10/17/17 Insertion time: 17:30 Removal date: 10/25/17 Removal time: 14:38 Results - Labs CBC & Chem 7: 10/27/17 04:10 10/27/17 04:10 Laboratory Results - last 24 hr 10/27/17 10/27/17 10/27/17 04:10 04:10 06:50 WBC 10.2 RBC 1.68 L Hgb 6.1 L* Hct 18.3 L* MCV 109.4 H MCH 36.1 H MCHC 33.0 RDW 30.1 H Plt Count 140 L MPV 9.7 Sodium 144 Potassium 3.2 L Chloride 109 H Carbon Dioxide 25.6 Anion Gap 9 BUN 26 H Creatinine 1.41 H Random Glucose 218 H Calcium 8.1 L Total Bilirubin 1.5 H AST 23 ALT 22 Alkaline Phosphatase 70 Total Protein 5.5 L Albumin 1.8 L Lipase 2072 H Blood Type O Positive Antibody Screen Negative MTS Gel Crossmatch See Detail - Procedures ERCP 10/18/2017 IMPRESSIONS: 1. A previously placed ampulla stent was seen extending from the orifice, removed by snare. 2. 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 3. Sphincterotomy done. 4. Ductal sweep with balloon and irrigation removing multiple variable size stones, sludge and debris. 5. Normal inclusion cholangiogram afterward Assessment and Plan - Assessment (1) Pancreatitis Code(s): K85.90 - Acute pancreatitis without necrosis or infection, unspecified Status: Acute (2) Ileus, postoperative Code(s): K91.89 - Other postprocedural complications and disorders of digestive system; K56.7 - Ileus, unspecified Status: Acute - Plan 87 year old male with history of choledocholithiasis and cholangitis status post recent ERCP admitted on 10/[address] with [address] abdominal [address] CT A/ P as well as lipase level indicate acute pancreatitis. Course has been complicated by ileus. Pancreatitis Partial small bowel obstruction - Likely secondary to severe pancreatitis, recent ERCP - NG Tube discontinued. Patient is on clear liquid and PPN. Tolerating well. - Discussed with GI who will order IR directed G-J tube placement. - Encourage OOB, working with PT - Incentive spirometer - CT A/P showing mod peripancreatic inflammatory stranding and persistent intra- and extrahepatic ductal dilation with CBD stent in place - GI consulted and patient underwent repeat ERCP 10/18 with stent removal, sphincterotomy, and stone removal Acute Kidney Injury Hypernatremia Hypokalemia - Creatinine starting to trend down: 1.27 ==> 1.53. - Na is improved 154 --> 148 --> 144. - K+ 2.9, received 80meQ of KCL PO. Potassium is improved to 3.2. - U/A with elevated protein and moderate blood - Elevated BUN:Cr ratio likely indicating a pre-renal component though intrinsic injury can be compounding - D5W to correct hypernatremia Pneumonia - Continue Zosyn and Azithromycin - Supplemental O2 - DuoNeb PRN Anemia - Acute on chronic - H&H trending down (8.1 --> 7.5 --> 6.1) - Patient is currently receiving 2 units of PRBCs. Atrial fibrillation - Telemetry showing atrial fibrillation - EKG on admission showing 1st degree AV block right RBBB - AFIB may be from acute illness - Currently rate-controlled for the most part Full code. SCDs.
[2017-10-27 18:00] LABS: Hematocrit 26.2 % (39.0-51.0)
[2017-10-27] MEDS: MULTIVITAMIN IV.SIG SCH ×8 (20:47)
[2017-10-27] MEDS: [UNRECOGNIZED DRUG - OTHER] IV.SIG SCH ×8 (20:47)
[2017-10-27] MEDS: SODIUM CHLORIDE IV.SIG SCH ×8 (20:47)
[2017-10-27] MEDS: FOLIC ACID IV.SIG SCH ×8 (20:47)
[2017-10-27] MEDS: Insulin NovoLOG Aspart Correctional Sugar Inj SQ SCH (21:11)
--- NOTE | 2017-10-27 21:25 | P.PNGS ---
Subjective Patient reports: no new complaints (remains distended, small bms) Physical Exam Vital signs: Vital Signs 10/26/17 22:00 10/27/17 00:00 10/27/17 02:00 Temperature 99 F Pulse Rate 71 80 80 Respiratory Rate 24 Blood Pressure 139/63 Pulse Oximetry 95 10/27/17 04:00 10/27/17 06:00 10/27/17 08:00 Temperature 99 F 99.2 F Pulse Rate 82 88 97 H Respiratory Rate 18 20 Blood Pressure 152/70 H 150/83 H Pulse Oximetry 95 10/27/17 08:25 10/27/17 10:00 10/27/17 11:33 Temperature 98.2 F Pulse Rate 97 H 81 Respiratory Rate 2 L Blood Pressure 138/63 Pulse Oximetry 96 99 10/27/17 12:00 10/27/17 13:57 10/27/17 14:00 Temperature 98.0 F 98.9 F Pulse Rate 56 L 97 H 97 H Respiratory Rate 30 H 30 H Blood Pressure 105/50 L 108/75 Pulse Oximetry 100 97 10/27/17 16:00 10/27/17 18:00 10/27/17 19:56 Temperature 98.6 F Pulse Rate 90 97 H Respiratory Rate 30 H Blood Pressure 155/70 H Pulse Oximetry 97 96 Intake & Output 10/27/17 10/27/17 10/28/17 06:59 18:59 06:59 Intake Total 1010 / 1010 850 / 850 Output Total 1100 / 1100 3300 / 3300 Balance -90 / -90 -2450 / -2450 Weight 98.5 kg Intake: IV 350 / 350 50 / 50 Intralipid 20% Inj 250 ML @ 31. 250 / 250 25 mls/hr IV.SIG DAILY@2000 [facility] Rx#:[id number] Zosyn 3.375 GM Premix 50 ML @ 100 / 100 50 / 50 100 mls/hr IV.SIG Q6H [facility] Rx#: [id number] Oral 660 / 660 800 / 800 Intake (Blood Product) Amt 0 / 0 Rbc As-3 Leukoreduced Unit 0 / 0 [id number] Rbc As-3 Leukoreduced Unit 0 / 0 [id number] Output: Urine 1100 / 1100 Urine Amount (Catheter) 3000 / 3000 Indwelling Urethral Catheter 3000 / 3000 Gastric Drainage 300 / 300 Left Nare Nasogastric Tube 300 / 300 Other: # Voids 1 # Urine Diapers 2 Date of Last Bowel Movement 10/27/17 10/27/17 # Bowel Movements 2 2 - Routine Abdominal Exam Present: soft, distended - Urinary Catheter Management Indwelling Urethral Catheter Cath placed during this visit: yes, but has since been removed by the nurse Reason for continuing: Decision to DC catheter Insertion date: 10/17/17 Insertion time: 17:30 Removal date: 10/25/17 Removal time: 14:38 Assessment and Plan - Assessment (1) Pancreatitis Code(s): K85.90 - Acute pancreatitis without necrosis or infection, unspecified Status: Acute - Plan pancreatits, ileus- still with distension SBFT shows partial sbo, pancreatitis, patient appears improving but still moving slow +bowel sounds still with distension PLAN clears abdominal exams labs, lipase still elevated c/w TPN will follow agree with IR g-j tube encourage oob to chair
[2017-10-28] MEDS: Insulin NovoLOG Aspart Correctional Sugar Inj SQ SCH ×4 (01:19→18:00)
[2017-10-28] MEDS: Piperacil/Tazo 3.375 GM Premix 50 ML IV.SIG SCH ×4 (01:24→18:58)
[2017-10-28] MEDS: Temazepam 15 MG Capsule PO PRN (01:28)
[2017-10-28] MEDS: Azithromycin Inj 500 MG in Sodium Chlor 0.9% Inj 250 ML IV.SIG SCH (08:41)
[2017-10-28] MEDS: Dextrose 5% in Water Inj 1,000 ML IV.CONT SCH ×2 (08:43→11:47)
[2017-10-28] MEDS: Senna/Docusate Sodium 8.6/50 MG Tablet PO SCH ×2 (08:44→21:40)
[2017-10-28] MEDS: Heparin Central Flush 100 UNIT/ML 5 ML Vial IV.FLUSH SCH (08:49)
[2017-10-28] MEDS ORDERED: fentaNYL Citrate Inj 100 MCG/2 ML Ampul ONE (10:29)
--- NOTE | 2017-10-28 11:19 | P.RAD ---
Post Procedure Progress Note - Pre Procedure Diagnosis (1) Pancreatitis - Post Procedure Diagnosis (1) Pancreatitis - Procedure Information Procedure Date: 10/28/17 Supervising Radiologist: John Velez Jr, MD Estimated blood loss (mL): 0 Anesthesia: Conscious Sedation - Plan of Activity Patient to Unit: ROPU Patient Condition: Good See PACS Report for procedural detail/treatment. Feeding Tube Feeding Tube: Gastro/Jejunostomy Procedure: Placement Slovak Tube Size: 18 Findings: Tip of J tube in prox jejunum. Plan: T fasteners will fall off in 2-3 weeks.
[2017-10-28] MEDS ORDERED: Iohexol 350 MG/ML 50 ML Vial (for Rad Diag) G-TUBE ONE (11:24)
--- NOTE | 2017-10-28 12:06 | IR ---
EXAM DATE: 10/28/2017 11:44 AM EDT AGE/SEX: 87 years / Male INDICATIONS: Patient with pancreatitis and partial small bowel obstruction. CLINICAL DATA: This is the patient's initial encounter. Patient reports that signs and symptoms have been present for 2 weeks and indicates a pain score of 1/10. MEDICAL/SURGICAL HISTORY: Gastroesophageal reflux disease. Pancreatitis. Cholelithiasis. rig ht hip fx Pacemaker. Inguinal hernia repair. Cholecystectomy. biliary stent. Knee replacement, COMPARISON: . FLUORO TIME (min): 3.9 IMAGE SERIES: 4 SEDATION TIME (min): 30 CONTRAST (cc): 30 Omnipaque (iohexol) 350 MEDICATION(S): 1.5 mg midazolam (Versed) IV 75 mcg fentanyl (Sublimaze) IV DEVICE(S): 18 Green[place]ic gastrojejunostomy tube . . PROCEDURE: 1. Limited abdominal ultrasound. 2. Fluoroscopically guided gastrojejunostomy tube placement. 3. Conscious sedation with continuous EKG and oximetry monitoring. The risks, benefits and alternatives to the procedure were explained and verbal and written consent w as obtained. The site was prepped in sterile fashion. Full sterile technique was used, including ca p, mask, sterile gloves and gown and a large sterile sheet. Hand hygiene and 2% chlorhexidine and/or betadine/alcohol prep was utilized per protocol for cutaneous antisepsis. The skin and subcutaneous tissues were infiltrated with local anesthetic solution. Sterile gel and sterile probe cover were utilized for ultrasound guidance. Ultrasound was used to collin the position of the liver. 1 mg of Glucagon was administered. The stoma ch was insufflated with room air using. Three percutaneous fasteners were placed to secure the anteri or gastric wall. A small incision was made between the fasteners. The stomach was accessed with an 18 gauge needle. A n 0.035 wire was advanced into the small bowel. The tract was dilated. The gastrojejunostomy tube w as introduced through a peel-away sheath. The position was confirmed with an injection of contrast in both the gastric and jejunal lumens. Conscious sedation was performed with the prescribed dosages and duration as above in the presence of an independent trained radiology nurse to assist in the monitoring of the patient. EKG and oximetry remained stable throughout the procedure. The patient tolerated the procedure well and there were n o complications. The patient was sent to post anesthesia recovery in stable condition. CONCLUSION: 1. Uncomplicated gastrojejunostomy tube placement as above. Electronically signed by: John Velez MD 10/28/2017 12:04 PM EDT
--- NOTE | 2017-10-28 12:16 | P.PNGI ---
Subjective Interval history: Pt resting in bed, just returned from IR procedure for successful GJ tube placement. Abdomen remains distended. Pt has had 2 BMs since yesterday. Remains on TPN <BharatAlley hinkle - Last Filed: 10/28/17 12:13> Physical Exam Vital signs: Vital Signs 10/27/17 13:57 10/27/17 14:00 10/27/17 16:00 Temperature 98.9 F 98.6 F Pulse Rate 97 H 97 H 90 Respiratory Rate 30 H 30 H Blood Pressure 108/75 155/70 H Pulse Oximetry 97 97 10/27/17 18:00 10/27/17 19:56 10/27/17 20:00 Temperature 98 F Pulse Rate 97 H 83 Respiratory Rate 20 Blood Pressure 132/66 Pulse Oximetry 96 10/27/17 22:00 10/28/17 00:00 10/28/17 02:00 Temperature 98.3 F Pulse Rate 86 98 H 87 Respiratory Rate 18 Blood Pressure 155/106 H Pulse Oximetry 10/28/17 04:00 10/28/17 06:00 10/28/17 08:15 Temperature 98.7 F Pulse Rate 86 88 Respiratory Rate 28 H Blood Pressure 163/71 H Pulse Oximetry 98 97 Intake & Output 10/27/17 10/28/17 10/28/17 18:59 06:59 18:59 Intake Total 1650 / 1650 400 / 400 250 / 250 Output Total 3300 / 3300 2800 / 2800 Balance -1650 / -1650 -2400 / -2400 250 / 250 Weight 99.4 kg Intake: IV 50 / 50 400 / 400 250 / 250 Azithromycin Inj 500 MG In NS 250 / 250 Inj 250 ML @ 250 mls/hr IV.SIG Q24H [facility] Rx#:[id number] Intralipid 20% Inj 250 ML @ 31. 250 / 250 25 mls/hr IV.SIG DAILY@2000 [facility] Rx#:[id number] Zosyn 3.375 GM Premix 50 ML @ 50 / 50 150 / 150 100 mls/hr IV.SIG Q6H [facility] Rx#: [id number] Oral 800 / 800 Intake (Blood Product) Amt 800 / 800 Rbc As-3 Leukoreduced Unit 400 / 400 [id number] Rbc As-3 Leukoreduced Unit 400 / 400 [id number] Output: Urine 2800 / 2800 Urine Amount (Catheter) 3000 / 3000 Indwelling Urethral Catheter 3000 / 3000 Gastric Drainage 300 / 300 Left Nare Nasogastric Tube 300 / 300 Other: # Voids 1 # Urine Diapers 2 Date of Last Bowel Movement 10/27/17 10/27/17 # Bowel Movements 2 1 - Constitutional no acute distress - Routine HEENT Exam Head: Present: normocephalic, atraumatic - Routine Respiratory Exam Absent: accessory muscle use - Routine Abdominal Exam Present: normoactive bowel sounds, distended, firm. Absent: tenderness - Routine Skin Exam Present: dry, warm - Urinary Catheter Management Indwelling Urethral Catheter Cath placed during this visit: yes, but has since been removed by the nurse Reason for continuing: Decision to DC catheter Insertion date: 10/17/17 Insertion time: 17:30 Removal date: 10/25/17 Removal time: 14:38 <Alley Ruiz - Last Filed: 10/28/17 12:13> Vital signs: Vital Signs 10/27/17 18:00 10/27/17 19:56 10/27/17 20:00 Temperature 98 F Pulse Rate 97 H 83 Respiratory Rate 20 Blood Pressure 132/66 Pulse Oximetry 96 10/27/17 22:00 10/28/17 00:00 10/28/17 02:00 Temperature 98.3 F Pulse Rate 86 98 H 87 Respiratory Rate 18 Blood Pressure 155/106 H Pulse Oximetry 10/28/17 04:00 10/28/17 06:00 10/28/17 08:15 Temperature 98.7 F Pulse Rate 86 88 Respiratory Rate 28 H Blood Pressure 163/71 H Pulse Oximetry 98 97 Intake & Output 10/27/17 10/28/17 10/28/17 18:59 06:59 18:59 Intake Total 1650 / 1650 400 / 400 550 / 550 Output Total 3300 / 3300 2800 / 2800 Balance -1650 / -1650 -2400 / -2400 550 / 550 Weight 99.4 kg Intake: IV 50 / 50 400 / 400 550 / 550 Azithromycin Inj 500 MG In NS 500 / 500 Inj 250 ML @ 250 mls/hr IV.SIG Q24H [facility] Rx#:[id number] Intralipid 20% Inj 250 ML @ 31. 250 / 250 25 mls/hr IV.SIG DAILY@2000 [facility] Rx#:[id number] Zosyn 3.375 GM Premix 50 ML @ 50 / 50 150 / 150 50 / 50 100 mls/hr IV.SIG Q6H [facility] Rx#: [id number] Oral 800 / 800 Intake (Blood Product) Amt 800 / 800 Rbc As-3 Leukoreduced Unit 400 / 400 [id number] Rbc As-3 Leukoreduced Unit 400 / 400 [id number] Output: Urine 2800 / 2800 Urine Amount (Catheter) 3000 / 3000 Indwelling Urethral Catheter 3000 / 3000 Gastric Drainage 300 / 300 Left Nare Nasogastric Tube 300 / 300 Other: # Voids 1 # Urine Diapers 2 Date of Last Bowel Movement 10/27/17 10/27/17 # Bowel Movements 2 1 - Urinary Catheter Management Indwelling Urethral Catheter Cath placed during this visit: no <Kristine Villarreal - Last Filed: 10/28/17 17:27> Results - Labs CBC & Chem 7: 10/27/17 17:00 10/27/17 04:10 Laboratory Results - last 24 hr 10/27/17 10/27/17 10/27/17 06:50 17:00 21:09 Hgb 9.0 L D Hct 26.2 L POC Glucose 170 H Blood Type O Positive Antibody Screen Negative MTS Gel Crossmatch See Detail - Imaging Impressions Gastrostomy Tube Placement 10/28/17 00:00 CONCLUSION: 1. Uncomplicated gastrojejunostomy tube placement as above. - Procedures ERCP 10/18/2017 IMPRESSIONS: 1. A previously placed ampulla stent was seen extending from the orifice, removed by snare. 2. 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 3. Sphincterotomy done. 4. Ductal sweep with balloon and irrigation removing multiple variable size stones, sludge and debris. 5. Normal inclusion cholangiogram afterward <Alley Ruiz - Last Filed: 10/28/17 12:13> - Labs CBC & Chem 7: 10/27/17 17:00 10/27/17 04:10 Laboratory Results - last 24 hr 10/27/17 10/27/17 10/27/17 06:50 17:00 21:09 Hgb 9.0 L D Hct 26.2 L POC Glucose 170 H MTS Gel Crossmatch See Detail - Imaging Impressions Gastrostomy Tube Placement 10/28/17 00:00 CONCLUSION: 1. Uncomplicated gastrojejunostomy tube placement as above. <Kristine Villarreal - Last Filed: 10/28/17 17:27> Assessment and Plan (1) Cholangitis Status: Acute Code(s): K83.0 - Cholangitis (2) Elevated LFTs Status: Acute Code(s): R94.5 - Abnormal results of liver function studies (3) Pancreatitis Status: Acute Code(s): K85.90 - Acute pancreatitis without necrosis or infection, unspecified - Plan Assessment: - Elevated LFTs and pancreatitis with recent ERCP with findings of biliary sludge and bile duct dilatation S/P balloon sweep and plastic stent placement on 10/11- Pt with history of choledocholithiasis and cholangitis. History of cholecystectomy. Complaining of: upper abdominal pain that began at 9pm last night after dinner at 8pm, constant, described as "hunger pains". Denies associated fever, chills, nausea, vomiting. Denies history of pancreatitis. Denies ETOH. CT abdomen and pelvis W IV contrast (10/17) Moderate peripancreatic inflammatory stranding consistent with pancreatitis. Pancreas enhances uniformly and there is no peripancreatic fluid collection at this time. Interval placement of CBD stent with persistent intra and extra hepatic ductal dilatation. Focal adynamic ileus in the proximal jejunum secondary to the peripancreatic inflammatory changes S/P ERCP (10/18) --> A previously placed ampulla stent was seen extending from the orifice, removed by snare. 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 Sphincterotomy done. Ductal sweep with balloon and irrigation removing multiple variable size stones, sludge and debris. Normal inclusion cholangiogram afterward Repeat CT abdomen and pelvis (10/19) --> Consistent with pancreatitis, new dilatation in the distal esophagus, stomach, and proximal small bowel, contrast is seen to reach the colon which could be asymmetric ileus, some degree of obstruction cannot be excluded. Pneumobilia, previously seen biliary duct stent has been removed, CBD is dilated measuring 1.8 cm. 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 Has been started on TPN- GJ placement today by IR. Has been having BMs for the past few days, however abdomen has remained distended. Plan: Dietary recommendations for J-tube feedings G tube can be to suction if nausea or distention Continue Reglan Monitor stool count Further recommendations to follow Pt has been seen and examined by myself and Dr. Villarreal and this note is written on his behalf <Alley Ruiz - Last Filed: 10/28/17 12:13> (1) Cholangitis Status: Acute Code(s): K83.0 - Cholangitis (2) Elevated LFTs Status: Acute Code(s): R94.5 - Abnormal results of liver function studies (3) Pancreatitis Status: Acute Code(s): K85.90 - Acute pancreatitis without necrosis or infection, unspecified - Plan Patient was seen and examined, agree with above note, we will see how he is doing tomorrow, he started to have stool <Kristine Villarreal - Last Filed: 10/28/17 17:27>
--- NOTE | 2017-10-28 13:04 | P.PNIM ---
Subjective Interval history: Feeding tube placement in process for today. No new complaints from the patient. Pancreatic enzymes remain elevated. Physical Exam Vital signs: Vital Signs 10/27/17 13:57 10/27/17 14:00 10/27/17 16:00 Temperature 98.9 F 98.6 F Pulse Rate 97 H 97 H 90 Respiratory Rate 30 H 30 H Blood Pressure 108/75 155/70 H Pulse Oximetry 97 97 10/27/17 18:00 10/27/17 19:56 10/27/17 20:00 Temperature 98 F Pulse Rate 97 H 83 Respiratory Rate 20 Blood Pressure 132/66 Pulse Oximetry 96 10/27/17 22:00 10/28/17 00:00 10/28/17 02:00 Temperature 98.3 F Pulse Rate 86 98 H 87 Respiratory Rate 18 Blood Pressure 155/106 H Pulse Oximetry 10/28/17 04:00 10/28/17 06:00 10/28/17 08:15 Temperature 98.7 F Pulse Rate 86 88 Respiratory Rate 28 H Blood Pressure 163/71 H Pulse Oximetry 98 97 Intake & Output 10/27/17 10/28/17 10/28/17 18:59 06:59 18:59 Intake Total 1650 / 1650 400 / 400 250 / 250 Output Total 3300 / 3300 2800 / 2800 Balance -1650 / -1650 -2400 / -2400 250 / 250 Weight 99.4 kg Intake: IV 50 / 50 400 / 400 250 / 250 Azithromycin Inj 500 MG In NS 250 / 250 Inj 250 ML @ 250 mls/hr IV.SIG Q24H [facility] Rx#:[id number] Intralipid 20% Inj 250 ML @ 31. 250 / 250 25 mls/hr IV.SIG DAILY@2000 [facility] Rx#:[id number] Zosyn 3.375 GM Premix 50 ML @ 50 / 50 150 / 150 100 mls/hr IV.SIG Q6H [facility] Rx#: [id number] Oral 800 / 800 Intake (Blood Product) Amt 800 / 800 Rbc As-3 Leukoreduced Unit 400 / 400 [id number] Rbc As-3 Leukoreduced Unit 400 / 400 [id number] Output: Urine 2800 / 2800 Urine Amount (Catheter) 3000 / 3000 Indwelling Urethral Catheter 3000 / 3000 Gastric Drainage 300 / 300 Left Nare Nasogastric Tube 300 / 300 Other: # Voids 1 # Urine Diapers 2 Date of Last Bowel Movement 10/27/17 10/27/17 # Bowel Movements 2 1 Narrative: GENERAL: NAD, A&Ox3 HEAD: Normocephalic. NECK: Supple, trachea midline. No lymphadenopathy. EYES: No scleral icterus. No injection or drainage. CARDIOVASCULAR: Regular rate and rhythm without murmurs, gallops, or rubs. RESPIRATORY: Breath sounds equal bilaterally. No accessory muscle use. GASTROINTESTINAL: Abdomen soft, non-tender, nondistended. MUSCULOSKELETAL: No cyanosis, or edema. SKIN: Warm and dry. NEURO: No focal neurological deficits. - Urinary Catheter Management Indwelling Urethral Catheter Cath placed during this visit: yes, but has since been removed by the nurse Reason for continuing: Decision to DC catheter Insertion date: 10/17/17 Insertion time: 17:30 Removal date: 10/25/17 Removal time: 14:38 Results - Labs CBC & Chem 7: 10/27/17 17:00 10/27/17 04:10 Laboratory Results - last 24 hr 10/27/17 10/27/17 10/27/17 06:50 17:00 21:09 Hgb 9.0 L D Hct 26.2 L POC Glucose 170 H Blood Type O Positive Antibody Screen Negative MTS Gel Crossmatch See Detail - Imaging Impressions Gastrostomy Tube Placement 10/28/17 00:00 CONCLUSION: 1. Uncomplicated gastrojejunostomy tube placement as above. - Procedures ERCP 10/18/2017 IMPRESSIONS: 1. A previously placed ampulla stent was seen extending from the orifice, removed by snare. 2. 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 3. Sphincterotomy done. 4. Ductal sweep with balloon and irrigation removing multiple variable size stones, sludge and debris. 5. Normal inclusion cholangiogram afterward Assessment and Plan - Assessment (1) Pancreatitis Code(s): K85.90 - Acute pancreatitis without necrosis or infection, unspecified Status: Acute (2) Ileus, postoperative Code(s): K91.89 - Other postprocedural complications and disorders of digestive system; K56.7 - Ileus, unspecified Status: Acute - Plan 87 year old male with history of choledocholithiasis and cholangitis status post recent ERCP admitted on 10/17 with progressive abdominal pain. CT A/ P as well as lipase level indicate acute pancreatitis. Course has been complicated by ileus. Pancreatitis Partial small bowel obstruction Persistent elevation lipase Feeding tube placement occurring today Continue physical therapy Continue monitoring for normal bowel activity Incentive spirometer GI following Acute Kidney Injury Hypernatremia Hypokalemia Monitor BUN and creatinine Monitor sodium levels Monitor potassium levels and replace as needed Pneumonia Continue Zosyn and Azithromycin Continue oxygen as needed Continue duo nebs as needed Anemia Acute on chronic Patient had a transfusion of 2 units packed red blood cells on 10/27/2017 Continue to monitor hemoglobin Atrial fibrillation First-degree AV block Right bundle branch block Currently rate controlled Follow on telemetry DVT prophylaxis SCDs
--- NOTE | 2017-10-28 13:52 | P.DIET ---
Nutritional Evaluation Type of nutrition evaluation: follow-up Nutrition consult regarding: TPN/PPN ([facility] for TPN recs) Nutrition screening: [facility] (New [facility] for TF recs) Subjective Subjective Comments: Pt has been npo/liquids only since admission on 10/17. Objective - Diagnosis Acute Pancreatitis, Recent ERCP - Objective % IBW: 118 (IBW = 178#) Body Weight Used for Calculations: Actual (95.7 kg) Energy Needs - Lower Range (kCal/kg): 25 Energy Needs - Upper Range (kCal/kg): 30 Lower Limit kCal/kg (kCals): 2,393 Upper Limit kCal/kg (kCals): 2,871 Lower Limit Protein Factor (Grams per Kg): 1.0 Upper Limit Protein Factor (Grams per Kg): 1.5 Lower Protein Needs (Protein): 96 Upper Protein Needs (Protein): 144 Dietitian Reviewed in Medical Record: Current diet, Curent medications, Intake & Output, Labs, Medical history, TPN/PPN Diet Order: Clear Liquid Objective Comments: Glu 170, lipase 2072 Feeding - Current TPN/PPN Current PPN: Clinimix 4.25/5 (Renal Formula) Current TPN/PPN Rate (ml/hr): 83 Amino Acid and Dextrose Current kCals Provided: 680 Amino Acid and Dextrose Current Protein Provided: 85 Current Lipid Concentration: 20% Current Lipids Rate: 250 mls daily over 8 hours Current kCal Provided by TPN/PPN: 1,180 Assessment Assessment: Pt continues at high nutrition risk r/t diagnosis and need for nutrition support. Pt is receiving TPN/lipids as above and has had a G/j tube placed today. To meet needs with TFing, recommend Vital 1.5 @ 65 mls/hr to provide 2340 kcals, 105 gms protein and 1192 mls of free water. To meet needs with TPN, recommend Clinimix 5/25 @ 83 mls/hr with same Lipids to provide a total of 2680 kcals and 100 gms protein. Hyperglycemia noted. Request weekly TG in setting of TPN and pancreatitis. Wt changes noted. Recommendations: For TPN: Clinimix 5/25 @ 83 mls/hr with same Lipids For TF: Viatl 1.5 @ 65 mls/hr goal Dietitian to Monitor: Lab values, Glucose level, Intake & Output, Diet tolerance , Tube feeding tolerance, TPN/PPN tolerance, Weight change, PO Intake, Diet advancement, Medical course
[2017-10-28] MEDS: Pantoprazole Inj 40 MG Vial IV.PUSH SCH (14:32)
--- NOTE | 2017-10-28 20:44 | P.PNGS ---
Subjective Patient reports: pain is less (still distended, pain at g tube site) Physical Exam Vital signs: Vital Signs 10/27/17 22:00 10/28/17 00:00 10/28/17 02:00 Temperature 98.3 F Pulse Rate 86 98 H 87 Respiratory Rate 18 Blood Pressure 155/106 H Pulse Oximetry 10/28/17 04:00 10/28/17 06:00 10/28/17 08:00 Temperature 98.7 F 98.8 F Pulse Rate 86 88 86 Respiratory Rate 28 H 25 H Blood Pressure 163/71 H 153/72 H Pulse Oximetry 98 97 10/28/17 08:15 10/28/17 10:00 10/28/17 12:00 Temperature 99 F Pulse Rate 79 92 H Respiratory Rate 24 Blood Pressure 144/66 H Pulse Oximetry 97 98 10/28/17 14:00 10/28/17 16:00 10/28/17 18:00 Temperature 99.5 F Pulse Rate 92 H 86 88 Respiratory Rate 20 Blood Pressure 144/65 H Pulse Oximetry 96 10/28/17 19:42 Temperature Pulse Rate Respiratory Rate Blood Pressure Pulse Oximetry 96 Intake & Output 10/28/17 10/28/17 10/29/17 06:59 18:59 06:59 Intake Total 400 / 400 1510 / 1510 50 / 50 Output Total 2800 / 2800 2250 / 2250 Balance -2400 / -2400 -740 / -740 50 / 50 Weight 99.4 kg Intake: IV 400 / 400 550 / 550 50 / 50 Azithromycin Inj 500 MG In NS 500 / 500 Inj 250 ML @ 250 mls/hr IV.SIG Q24H [facility] Rx#:[id number] Intralipid 20% Inj 250 ML @ 31. 250 / 250 25 mls/hr IV.SIG DAILY@2000 [facility] Rx#:[id number] Zosyn 3.375 GM Premix 50 ML @ 150 / 150 50 / 50 50 / 50 100 mls/hr IV.SIG Q6H [facility] Rx#: [id number] Oral 960 / 960 Output: Urine 2800 / 2800 Urine Amount (Catheter) 2250 / 2250 Condom 2250 / 2250 Other: Date of Last Bowel Movement 10/27/17 10/28/17 # Bowel Movements 1 - Routine Abdominal Exam Present: soft, distended (g tube capped, dressing in place) - Urinary Catheter Management Indwelling Urethral Catheter Cath placed during this visit: yes, but has since been removed by the nurse Reason for continuing: Decision to DC catheter Insertion date: 10/17/17 Insertion time: 17:30 Removal date: 10/25/17 Removal time: 14:38 Condom Cath placed during this visit: no Assessment and Plan - Assessment (1) Pancreatitis Code(s): K85.90 - Acute pancreatitis without necrosis or infection, unspecified Status: Acute - Plan pancreatits, ileus- still with distension SBFT shows partial sbo, pancreatitis, patient appears improving but still moving slow +bowel sounds still with distension PLAN clears abdominal exams labs c/w TPN will follow s/p IR g-j tube- recommend gravity bag encourage oob to chair
[2017-10-28] MEDS: FOLIC ACID IV.SIG SCH ×8 (21:17)
[2017-10-28] MEDS: [UNRECOGNIZED DRUG - OTHER] IV.SIG SCH ×8 (21:17)
[2017-10-28] MEDS: SODIUM CHLORIDE IV.SIG SCH ×8 (21:17)
[2017-10-28] MEDS: MULTIVITAMIN IV.SIG SCH ×8 (21:17)
[2017-10-29] MEDS: oxyCODONE/Acetaminophen 10/325 Tablet PO PRN ×2 (00:32→06:56)
[2017-10-29] MEDS: Morphine Inj 4 MG/ML Vial IV.PUSH PRN ×2 (00:34→06:56)
[2017-10-29] MEDS: Piperacil/Tazo 3.375 GM Premix 50 ML IV.SIG SCH ×4 (00:40→19:12)
[2017-10-29] MEDS: Dextrose 5% in Water Inj 1,000 ML IV.CONT SCH ×2 (03:55→16:29)
[2017-10-29 06:16] LABS: Baso # (Auto) 0.1 th/mm3 (0.0-0.2); Baso % (Auto) 1.1 % (0.0-2.0); Eos # (Auto) 0.6 th/mm3 (0.0-0.4); Eos % (Auto) 4.8 % (0.0-4.0); Hematocrit 25.3 % (39.0-51.0); Hemoglobin 8.3 gm/dL (13.0-17.0); Lymph # (Auto) 2.3 th/mm3 (1.0-4.8); Lymph % (Auto) 18.2 % (9.0-44.0); Mean Corpuscular HGB Conc 32.8 % (32.0-36.0); Mean Corpuscular Hemoglobin 33.2 pg (27.0-34.0); Mean Corpuscular Volume 101.3 fL (80.0-100.0); Mean Platelet Volume 9.5 fL (7.0-11.0); Mono # (Auto) 0.6 th/mm3 (0.0-0.9); Mono % (Auto) 4.8 % (0.0-8.0); Neut # (Auto) 9.1 th/mm3 (1.8-7.7); Neut % (Auto) 71.1 % (16.0-70.0); Platelet Count 147 th/mm3 (150-450); Red Cell Distribution Width 28.1 % (11.6-17.2); White Blood Count 12.7 th/mm3 (4.0-11.0)
[2017-10-29 06:43] LABS: Albumin 1.9 g/dL (3.4-5.0); Anion Gap 7 meq/L (5-15); Aspartate Aminotransferase 37 U/L (15-37); Blood Urea Nitrogen 23 mg/dL (7-18); Calcium 8.7 mg/dL (8.5-10.1); Carbon Dioxide 26.7 meq/L (21.0-32.0); Chloride 106 meq/L (98-107); Glomerular Filtration Rate 60 mL/min (>89); Glucose,Random 223 mg/dL (74-106); Lipase 1231 U/L (73-393); Potassium 3.6 meq/L (3.5-5.1); Sodium 140 meq/L (136-145)
[2017-10-29 06:44] LABS: Alanine Aminotransferase 29 U/L (12-78)
[2017-10-29 06:46] LABS: Alkaline Phosphatase 92 U/L (45-117)
[2017-10-29] MEDS: Insulin NovoLOG Aspart Correctional Sugar Inj SQ SCH ×4 (06:56→19:10)
[2017-10-29 08:14] LABS: Eosinophils 6 % (0-4); Lymphocytes 16 % (9-44); Metamyelocytes 1 % (0-1); Monocytes 6 % (0-8); Myelocytes 4 % (0-0); Platelet Morphology Normal (Normal)
[2017-10-29] MEDS: Azithromycin Inj 500 MG in Sodium Chlor 0.9% Inj 250 ML IV.SIG SCH (08:21)
[2017-10-29] MEDS: Senna/Docusate Sodium 8.6/50 MG Tablet PO SCH (08:22)
[2017-10-29] MEDS: Heparin Central Flush 100 UNIT/ML 5 ML Vial IV.FLUSH SCH (08:23)
--- NOTE | 2017-10-29 11:55 | P.PNGI ---
Subjective Interval history: Pt resting in bed, states feels OK today. Abdomen is distended and firm. (+) BM today, has rectal bag on. Denies nausea and vomiting. Currently J tube to gravity, discussed with RN, will put G tube to gravity. <Alley Ruiz - Last Filed: 10/29/17 11:51> Physical Exam Vital signs: Vital Signs 10/28/17 12:00 10/28/17 14:00 10/28/17 16:00 Temperature 99 F 99.5 F Pulse Rate 92 H 92 H 86 Respiratory Rate 24 20 Blood Pressure 144/66 H 144/65 H Pulse Oximetry 98 96 10/28/17 18:00 10/28/17 19:42 10/28/17 20:00 Temperature 98.9 F Pulse Rate 88 85 Respiratory Rate 18 Blood Pressure 160/69 H Pulse Oximetry 96 97 10/28/17 22:00 10/29/17 00:00 10/29/17 02:00 Temperature 98.7 F Pulse Rate 90 80 80 Respiratory Rate 24 Blood Pressure 145/76 H Pulse Oximetry 94 L 10/29/17 04:00 10/29/17 06:00 10/29/17 07:00 Temperature 98.9 F Pulse Rate 80 85 Respiratory Rate 19 Blood Pressure 152/66 H Pulse Oximetry 92 L 97 10/29/17 08:00 Temperature 98.4 F Pulse Rate 85 Respiratory Rate 23 Blood Pressure 147/67 H Pulse Oximetry 97 Intake & Output 10/28/17 10/29/17 10/29/17 18:59 06:59 18:59 Intake Total 1510 / 1510 4384.1437 / 4384.1437 50 / 50 Output Total 2250 / 2250 8050 / 8050 Balance -740 / -740 -3665.8563 / -3665.8563 50 / 50 Weight 99.4 kg Intake: IV 550 / 550 3424.1437 / 3424.1437 50 / 50 D5W Inj 1,000 ML @ 84 mls/hr IV 1000 / 1000 .CONT .[id number] [facility] Rx#:[id number] Azithromycin Inj 500 MG In NS 500 / 500 Inj 250 ML @ 250 mls/hr IV.SIG Q24H [facility] Rx#:[id number] Intralipid 20% Inj 250 ML @ 31. 250 / 250 25 mls/hr IV.SIG DAILY@1999 COUNTS INCLUDE 234 BEDS AT THE [facility] Rx#:[id number] MVI-12 Inj 10 ML Folvite Inj 1 4.1437 / 2074.1437 MG Sodium Chloride 23.4% Inj 11 MEQ Sodium Acetate Inj 59 MEQ Magnesium Chloride Inj 10 MEQ KCl Inj 40 MEQ Calcium Chloride Inj 9 MEQ In TPN Fluid 2 Liter 2,000 ML @ 83 mls/hr IV.SIG DAILY@1999 COUNTS INCLUDE 234 BEDS AT THE [facility] Rx#:[id number] Zosyn 3.375 GM Premix 50 ML @ 50 / 50 100 / 100 50 / 50 100 mls/hr IV.SIG Q6H COUNTS INCLUDE 234 BEDS AT THE [facility] Rx#: [id number] Oral 960 / 960 960 / 960 Output: Urine 2800 / 2800 Urine Amount (Catheter) 2250 / 2250 5250 / 5250 Condom 2250 / 2250 2250 / 2250 Indwelling Urethral Catheter 3000 / 3000 Other: # Voids 1 # Urine Diapers 2 Date of Last Bowel Movement 10/28/17 10/28/17 10/28/17 # Bowel Movements 1 - Constitutional no acute distress - Routine HEENT Exam Head: Present: normocephalic, atraumatic - Routine Respiratory Exam Absent: accessory muscle use - Routine Abdominal Exam Present: normoactive bowel sounds, distended, firm. Absent: tenderness - Routine Skin Exam Present: dry, warm - Routine Neurological Exam Present: alert, oriented X3 - Urinary Catheter Management Indwelling Urethral Catheter Cath placed during this visit: yes, but has since been removed by the nurse Reason for continuing: Decision to DC catheter Insertion date: 10/17/17 Insertion time: 17:30 Removal date: 10/25/17 Removal time: 14:38 Condom Cath placed during this visit: no <Alley Ruiz - Last Filed: 10/29/17 11:51> Vital signs: Vital Signs 10/28/17 16:00 10/28/17 18:00 10/28/17 19:42 Temperature 99.5 F Pulse Rate 86 88 Respiratory Rate 20 Blood Pressure 144/65 H Pulse Oximetry 96 96 10/28/17 20:00 10/28/17 22:00 10/29/17 00:00 Temperature 98.9 F 98.7 F Pulse Rate 85 90 80 Respiratory Rate 18 24 Blood Pressure 160/69 H 145/76 H Pulse Oximetry 97 94 L 10/29/17 02:00 10/29/17 04:00 10/29/17 06:00 Temperature 98.9 F Pulse Rate 80 80 85 Respiratory Rate 19 Blood Pressure 152/66 H Pulse Oximetry 92 L 10/29/17 07:00 10/29/17 08:00 10/29/17 12:00 Temperature 98.4 F 98.2 F Pulse Rate 85 86 Respiratory Rate 23 24 Blood Pressure 147/67 H 150/67 H Pulse Oximetry 97 97 93 L Intake & Output 10/28/17 10/29/17 10/29/17 18:59 06:59 18:59 Intake Total 1510 / 1510 4384.1437 / 4384.1437 100 / 100 Output Total 2250 / 2250 8050 / 8050 Balance -740 / -740 -3665.8563 / -3665.8563 100 / 100 Weight 99.4 kg Intake: IV 550 / 550 3424.1437 / 3424.1437 100 / 100 D5W Inj 1,000 ML @ 84 mls/hr IV 1000 / 1000 .CONT .[id number] [facility] Rx#:[id number] Azithromycin Inj 500 MG In NS 500 / 500 Inj 250 ML @ 250 mls/hr IV.SIG Q24H [facility] Rx#:[id number] Intralipid 20% Inj 250 ML @ 31. 250 / 250 25 mls/hr IV.SIG DAILY@1999 [facility] Rx#:[id number] MVI-12 Inj 10 ML Folvite Inj 1 2074.1437 / 2074.1437 MG Sodium Chloride 23.4% Inj 11 MEQ Sodium Acetate Inj 59 MEQ Magnesium Chloride Inj 10 MEQ KCl Inj 40 MEQ Calcium Chloride Inj 9 MEQ In TPN Fluid 2 Liter 2,000 ML @ 83 mls/hr IV.SIG DAILY@1999 [facility] Rx#:[id number] Zosyn 3.375 GM Premix 50 ML @ 50 / 50 100 / 100 100 / 100 100 mls/hr IV.SIG Q6H [facility] Rx#: [id number] Oral 960 / 960 960 / 960 Output: Urine 2800 / 2800 Urine Amount (Catheter) 2250 / 2250 5250 / 5250 Condom 2250 / 2250 2250 / 2250 Indwelling Urethral Catheter 3000 / 3000 Other: # Voids 1 # Urine Diapers 2 Date of Last Bowel Movement 10/28/17 10/28/17 10/29/17 # Bowel Movements 1 - Urinary Catheter Management Indwelling Urethral Catheter Cath placed during this visit: no Condom Cath placed during this visit: no <Kristine Villarreal - Last Filed: 10/29/17 14:45> Results - Labs CBC & Chem 7: 10/29/17 06:05 10/29/17 06:05 Laboratory Results - last 24 hr 10/29/17 10/29/17 06:05 06:05 WBC 12.7 H RBC 2.50 L Hgb 8.3 L Hct 25.3 L MCV 101.3 H D MCH 33.2 MCHC 32.8 RDW 28.1 H Plt Count 147 L MPV 9.5 Prelim Diff (Auto) Slide review pending Neut % (Auto) 71.1 H Lymph % (Auto) 18.2 [place] % (Auto) 4.8 Eos % (Auto) 4.8 H Baso % (Auto) 1.1 Neut # (Auto) 9.1 H Lymph # (Auto) 2.3 [place] # (Auto) 0.6 Eos # (Auto) 0.6 H Baso # (Auto) 0.1 WBC Differential Manual diff final Seg Neuts % (Manual) 49 Band Neuts % (Manual) 15 H Lymphocytes % (Manual) 16 Monocytes % (Manual) 6 Eosinophils % (Manual) 6 H Basophils % (Manual) 3 H Metamyelocytes % (Man) 1 Myelocytes % (Man) 4 H Abs Neuts (Manual) 8.8 H Differential Comment . Platelet Estimate Low L Platelet Morphology Normal Keratocytes Occ H Sodium 140 Potassium 3.6 Chloride 106 Carbon Dioxide 26.7 Anion Gap 7 BUN 23 H Creatinine 1.15 Estimated GFR 60 L Random Glucose 223 H Calcium 8.7 Total Bilirubin 1.3 H AST 37 ALT 29 Alkaline Phosphatase 92 Total Protein 6.0 L Albumin 1.9 L Lipase 1231 H - Imaging Impressions Gastrostomy Tube Placement 10/28/17 00:00 CONCLUSION: 1. Uncomplicated gastrojejunostomy tube placement as above. - Procedures ERCP 10/18/2017 IMPRESSIONS: 1. A previously placed ampulla stent was seen extending from the orifice, removed by snare. 2. 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 3. Sphincterotomy done. 4. Ductal sweep with balloon and irrigation removing multiple variable size stones, sludge and debris. 5. Normal inclusion cholangiogram afterward <Alley Ruiz - Last Filed: 10/29/17 11:51> - Labs CBC & Chem 7: 10/29/17 06:05 10/29/17 06:05 Laboratory Results - last 24 hr 10/29/17 10/29/17 06:05 06:05 WBC 12.7 H RBC 2.50 L Hgb 8.3 L Hct 25.3 L MCV 101.3 H D MCH 33.2 MCHC 32.8 RDW 28.1 H Plt Count 147 L MPV 9.5 Prelim Diff (Auto) Slide review pending Neut % (Auto) 71.1 H Lymph % (Auto) 18.2 [place] % (Auto) 4.8 Eos % (Auto) 4.8 H Baso % (Auto) 1.1 Neut # (Auto) 9.1 H Lymph # (Auto) 2.3 [place] # (Auto) 0.6 Eos # (Auto) 0.6 H Baso # (Auto) 0.1 WBC Differential Manual diff final Seg Neuts % (Manual) 49 Band Neuts % (Manual) 15 H Lymphocytes % (Manual) 16 Monocytes % (Manual) 6 Eosinophils % (Manual) 6 H Basophils % (Manual) 3 H Metamyelocytes % (Man) 1 Myelocytes % (Man) 4 H Abs Neuts (Manual) 8.8 H Differential Comment . Platelet Estimate Low L Platelet Morphology Normal Keratocytes Occ H Sodium 140 Potassium 3.6 Chloride 106 Carbon Dioxide 26.7 Anion Gap 7 BUN 23 H Creatinine 1.15 Estimated GFR 60 L Random Glucose 223 H Calcium 8.7 Total Bilirubin 1.3 H AST 37 ALT 29 Alkaline Phosphatase 92 Total Protein 6.0 L Albumin 1.9 L Lipase 1231 H <Ana Villarrealyamini - Last Filed: 10/29/17 14:45> Assessment and Plan (1) Cholangitis Status: Acute Code(s): K83.0 - Cholangitis (2) Elevated LFTs Status: Acute Code(s): R94.5 - Abnormal results of liver function studies (3) Pancreatitis Status: Acute Code(s): K85.90 - Acute pancreatitis without necrosis or infection, unspecified - Plan Assessment: - Elevated LFTs and pancreatitis with recent ERCP with findings of biliary sludge and bile duct dilatation S/P balloon sweep and plastic stent placement on 10/11- Pt with history of choledocholithiasis and cholangitis. History of cholecystectomy. Complaining of: upper abdominal pain that began at 9pm last night after dinner at 8pm, constant, described as "hunger pains". Denies associated fever, chills, nausea, vomiting. Denies history of pancreatitis. Denies ETOH. CT abdomen and pelvis W IV contrast (10/17) Moderate peripancreatic inflammatory stranding consistent with pancreatitis. Pancreas enhances uniformly and there is no peripancreatic fluid collection at this time. Interval placement of CBD stent with persistent intra and extra hepatic ductal dilatation. Focal adynamic ileus in the proximal jejunum secondary to the peripancreatic inflammatory changes S/P ERCP (10/18) --> A previously placed ampulla stent was seen extending from the orifice, removed by snare. 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 Sphincterotomy done. Ductal sweep with balloon and irrigation removing multiple variable size stones, sludge and debris. Normal inclusion cholangiogram afterward Repeat CT abdomen and pelvis (10/19) --> Consistent with pancreatitis, new dilatation in the distal esophagus, stomach, and proximal small bowel, contrast is seen to reach the colon which could be asymmetric ileus, some degree of obstruction cannot be excluded. Pneumobilia, previously seen biliary duct stent has been removed, CBD is dilated measuring 1.8 cm. 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 Has been started on TPN- GJ placement today by IR. Has been having BMs for the past few days, however abdomen has remained distended. (10/29) Pt S/P GJ tube placement by IR yesterday, currently J tube is to gravity , discussed with RN will put G tube to suction. Abdomen distended and semi-firm. Pt has had stool today, currently has rectal bag, also had BM yesterday. Pt denies nausea, vomiting. Will try trickle feeds through J tube, G tube to suction. Goal to increase TF and wean off of TPN. Plan: Start trickle feeding through J tube Vital 1.5 @ 10mL/hr G tube to gravity Continue Reglan Monitor stool count Further recommendations to follow Pt has been seen and examined by myself and Dr. Villarreal and this note is written on his behalf <Alley Ruiz - Last Filed: 10/29/17 11:51> (1) Cholangitis Status: Acute Code(s): K83.0 - Cholangitis (2) Elevated LFTs Status: Acute Code(s): R94.5 - Abnormal results of liver function studies (3) Pancreatitis Status: Acute Code(s): K85.90 - Acute pancreatitis without necrosis or infection, unspecified - Attending Attestation Patient was seen and examined, awake, accompanied by his , seems to be doing better, still distended abdomen, will start trickle feeding and suction from the G-tube <Kristine Villarreal - Last Filed: 10/29/17 14:45>
[2017-10-29] MEDS: Pantoprazole Inj 40 MG Vial IV.PUSH SCH (13:03)
--- NOTE | 2017-10-29 16:40 | P.PNIM ---
Subjective Interval history: Significant decline in lipase level from 2071 down to 123. No complaints from patient. Status post J-tube placement. Feet starting this afternoon. Physical Exam Vital signs: Vital Signs 10/28/17 18:00 10/28/17 19:42 10/28/17 20:00 Temperature 98.9 F Pulse Rate 88 85 Respiratory Rate 18 Blood Pressure 160/69 H Pulse Oximetry 96 97 10/28/17 22:00 10/29/17 00:00 10/29/17 02:00 Temperature 98.7 F Pulse Rate 90 80 80 Respiratory Rate 24 Blood Pressure 145/76 H Pulse Oximetry 94 L 10/29/17 04:00 10/29/17 06:00 10/29/17 07:00 Temperature 98.9 F Pulse Rate 80 85 Respiratory Rate 19 Blood Pressure 152/66 H Pulse Oximetry 92 L 97 10/29/17 08:00 10/29/17 12:00 10/29/17 16:00 Temperature 98.4 F 98.2 F 98.4 F Pulse Rate 85 86 85 Respiratory Rate 23 24 24 Blood Pressure 147/67 H 150/67 H 148/67 H Pulse Oximetry 97 93 L 95 Intake & Output 10/28/17 10/29/17 10/29/17 18:59 06:59 18:59 Intake Total 1510 / 1510 4384.1437 / 4384.1437 1100 / 1100 Output Total 2250 / 2250 8050 / 8050 Balance -740 / -740 -3665.8563 / -3665.8563 1100 / 1100 Weight 99.4 kg Intake: IV 550 / 550 3424.1437 / 3424.1437 1100 / 1100 D5W Inj 1,000 ML @ 84 mls/hr IV 1000 / 1000 1000 / 1000 .CONT .[id number] [facility] Rx#:[id number] Azithromycin Inj 500 MG In NS 500 / 500 Inj 250 ML @ 250 mls/hr IV.SIG Q24H [facility] Rx#:[id number] Intralipid 20% Inj 250 ML @ 31. 250 / 250 25 mls/hr IV.SIG DAILY@2000 [facility] Rx#:[id number] MVI-12 Inj 10 ML Folvite Inj 1 2074.1437 / 2074.1437 MG Sodium Chloride 23.4% Inj 11 MEQ Sodium Acetate Inj 59 MEQ Magnesium Chloride Inj 10 MEQ KCl Inj 40 MEQ Calcium Chloride Inj 9 MEQ In TPN Fluid 2 Liter 2,000 ML @ 83 mls/hr IV.SIG DAILY@2000 [facility] Rx#:[id number] Zosyn 3.375 GM Premix 50 ML @ 50 / 50 100 / 100 100 / 100 100 mls/hr IV.SIG Q6H [facility] Rx#: [id number] Oral 960 / 960 960 / 960 Output: Urine 2800 / 2800 Urine Amount (Catheter) 2250 / 2250 5250 / 5250 Condom 2250 / 2250 2250 / 2250 Indwelling Urethral Catheter 3000 / 3000 Other: # Voids 1 # Urine Diapers 2 Date of Last Bowel Movement 10/28/17 10/28/17 10/29/17 # Bowel Movements 1 Narrative: GENERAL: NAD, A&Ox3 HEAD: Normocephalic. NECK: Supple, trachea midline. No lymphadenopathy. EYES: No scleral icterus. No injection or drainage. CARDIOVASCULAR: Regular rate and rhythm without murmurs, gallops, or rubs. RESPIRATORY: Breath sounds equal bilaterally. No accessory muscle use. GASTROINTESTINAL: Abdomen soft, non-tender, nondistended. MUSCULOSKELETAL: No cyanosis, or edema. SKIN: Warm and dry. NEURO: No focal neurological deficits. - Urinary Catheter Management Indwelling Urethral Catheter Cath placed during this visit: yes, but has since been removed by the nurse Reason for continuing: Decision to DC catheter Insertion date: 10/17/17 Insertion time: 17:30 Removal date: 10/25/17 Removal time: 14:38 Condom Cath placed during this visit: no Results - Labs CBC & Chem 7: 10/29/17 06:05 10/29/17 06:05 Laboratory Results - last 24 hr 10/29/17 10/29/17 06:05 06:05 WBC 12.7 H RBC 2.50 L Hgb 8.3 L Hct 25.3 L MCV 101.3 H D MCH 33.2 MCHC 32.8 RDW 28.1 H Plt Count 147 L MPV 9.5 Prelim Diff (Auto) Slide review pending Neut % (Auto) 71.1 H Lymph % (Auto) 18.2 [place] % (Auto) 4.8 Eos % (Auto) 4.8 H Baso % (Auto) 1.1 Neut # (Auto) 9.1 H Lymph # (Auto) 2.3 [place] # (Auto) 0.6 Eos # (Auto) 0.6 H Baso # (Auto) 0.1 WBC Differential Manual diff final Seg Neuts % (Manual) 49 Band Neuts % (Manual) 15 H Lymphocytes % (Manual) 16 Monocytes % (Manual) 6 Eosinophils % (Manual) 6 H Basophils % (Manual) 3 H Metamyelocytes % (Man) 1 Myelocytes % (Man) 4 H Abs Neuts (Manual) 8.8 H Differential Comment . Platelet Estimate Low L Platelet Morphology Normal Keratocytes Occ H Sodium 140 Potassium 3.6 Chloride 106 Carbon Dioxide 26.7 Anion Gap 7 BUN 23 H Creatinine 1.15 Estimated GFR 60 L Random Glucose 223 H Calcium 8.7 Total Bilirubin 1.3 H AST 37 ALT 29 Alkaline Phosphatase 92 Total Protein 6.0 L Albumin 1.9 L Lipase 1231 H - Procedures ERCP 10/18/2017 IMPRESSIONS: 1. A previously placed ampulla stent was seen extending from the orifice, removed by snare. 2. 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 3. Sphincterotomy done. 4. Ductal sweep with balloon and irrigation removing multiple variable size stones, sludge and debris. 5. Normal inclusion cholangiogram afterward Assessment and Plan - Assessment (1) Pancreatitis Code(s): K85.90 - Acute pancreatitis without necrosis or infection, unspecified Status: Acute (2) Ileus, postoperative Code(s): K91.89 - Other postprocedural complications and disorders of digestive system; K56.7 - Ileus, unspecified Status: Acute - Plan 87 year old male with history of choledocholithiasis and cholangitis status post recent ERCP admitted on 10/[address] with progressive abdominal pain. CT A/ P as well as lipase level indicate acute pancreatitis. Course has been complicated by ileus. Pancreatitis shows improvement today. Continue monitoring lipase levels. Initiation of J-tube feeds pending. Pancreatitis Partial small bowel obstruction Persistent elevation lipase Feeding tube placement occurred on 10/28/2017 Continue physical therapy Continue monitoring for normal bowel activity Incentive spirometer GI following Acute Kidney Injury Hypernatremia Hypokalemia Monitor BUN and creatinine Monitor sodium levels Monitor potassium levels and replace as needed Pneumonia Continue Zosyn and Azithromycin Continue oxygen as needed Continue duo nebs as needed Anemia Acute on chronic Patient had a transfusion of 2 units packed red blood cells on 10/27/2017 Continue to monitor hemoglobin Atrial fibrillation First-degree AV block Right bundle branch block Currently rate controlled Follow on telemetry DVT prophylaxis SCDs
[2017-10-30] MEDS: Senna/Docusate Sodium 8.6/50 MG Tablet PO SCH ×3 (01:09→21:56)
[2017-10-30] MEDS: Piperacil/Tazo 3.375 GM Premix 50 ML IV.SIG SCH ×4 (01:09→17:03)
[2017-10-30] MEDS: [UNRECOGNIZED DRUG - OTHER] IV.SIG SCH ×16 (01:10→21:59)
[2017-10-30] MEDS: FOLIC ACID IV.SIG SCH ×16 (01:10→21:59)
[2017-10-30] MEDS: MULTIVITAMIN IV.SIG SCH ×16 (01:10→21:59)
[2017-10-30] MEDS: SODIUM CHLORIDE IV.SIG SCH ×16 (01:10→21:59)
[2017-10-30] MEDS: Dextrose 5% in Water Inj 1,000 ML IV.CONT SCH ×3 (01:11→22:01)
[2017-10-30] MEDS: Insulin NovoLOG Aspart Correctional Sugar Inj SQ SCH ×4 (01:16→17:18)
[2017-10-30] MEDS: oxyCODONE/Acetaminophen 10/325 Tablet PO PRN (01:53)
[2017-10-30 05:44] LABS: Baso # (Auto) 0.2 th/mm3 (0.0-0.2); Baso % (Auto) 1.7 % (0.0-2.0); Eos # (Auto) 0.4 th/mm3 (0.0-0.4); Eos % (Auto) 4.3 % (0.0-4.0); Hematocrit 22.9 % (39.0-51.0); Hemoglobin 7.6 gm/dL (13.0-17.0); Lymph # (Auto) 1.8 th/mm3 (1.0-4.8); Lymph % (Auto) 17.9 % (9.0-44.0); Mean Corpuscular HGB Conc 33.4 % (32.0-36.0); Mean Corpuscular Hemoglobin 34.3 pg (27.0-34.0); Mean Corpuscular Volume 102.5 fL (80.0-100.0); Mean Platelet Volume 9.8 fL (7.0-11.0); Mono # (Auto) 0.6 th/mm3 (0.0-0.9); Mono % (Auto) 6.2 % (0.0-8.0); Neut % (Auto) 69.9 % (16.0-70.0); Platelet Count 148 th/mm3 (150-450); Red Blood Count 2.23 mil/mm3 (4.50-5.90); Red Cell Distribution Width 27.2 % (11.6-17.2)
[2017-10-30 06:23] LABS: Alanine Aminotransferase 27 U/L (12-78); Albumin 1.7 g/dL (3.4-5.0); Alkaline Phosphatase 88 U/L (45-117); Anion Gap 7 meq/L (5-15); Aspartate Aminotransferase 30 U/L (15-37); Blood Urea Nitrogen 21 mg/dL (7-18); Calcium 7.7 mg/dL (8.5-10.1); Carbon Dioxide 27.3 meq/L (21.0-32.0); Chloride 109 meq/L (98-107); Glomerular Filtration Rate 64 mL/min (>89); Glucose,Random 204 mg/dL (74-106); Lipase 1196 U/L (73-393); Magnesium 1.9 mg/dL (1.5-2.5); Potassium 3.7 meq/L (3.5-5.1); Sodium 143 meq/L (136-145); Total Protein 5.7 g/dL (6.4-8.2)
--- NOTE | 2017-10-30 08:29 | P.PNGI ---
Subjective Interval history: Pt resting in bed, states feels well today. TF through J tube running at 10 mL/ hr, G tube to gravity. Pt has not had BM yet today. Denies nausea, vomiting, abdominal pain <Alley Ruiz - Last Filed: 10/30/17 08:26> Interval history: Patient was seen and examined, agree with above note, patient was not happy with nursing staff so I addressed her concern and I talked to Dr. Matos to talk to the nursing field service supervisor about changing the staff <Kristine Villarreal - Last Filed: 10/30/17 17:58> Physical Exam Vital signs: Vital Signs 10/29/17 12:00 10/29/17 16:00 10/29/17 18:00 Temperature 98.2 F 98.4 F 98.5 F Pulse Rate 86 85 89 Respiratory Rate 24 24 24 Blood Pressure 150/67 H 148/67 H 153/69 H Pulse Oximetry 93 L 95 93 L 10/29/17 20:00 10/29/17 21:00 10/30/17 00:00 Temperature 98 F 97 F L Pulse Rate 68 78 Respiratory Rate 20 18 20 Blood Pressure 120/66 129/68 Pulse Oximetry 96 94 L 10/30/17 04:00 10/30/17 05:00 Temperature 98.8 F Pulse Rate 62 Respiratory Rate 20 20 Blood Pressure 118/69 Pulse Oximetry 94 L Intake & Output 10/29/17 10/30/17 10/30/17 18:59 06:59 18:59 Intake Total 2070 / 2070 6698.2874 / 6698.2874 Output Total 3625 / 3625 6275 / 6275 Balance -1555 / -4145 659.5627 / 423.2874 Weight 99.3 kg Intake: IV 1350 / 1350 6698.2874 / 6698.2874 D5W Inj 1,000 ML @ 84 mls/hr IV 1000 / 1000 1999 / 1999 .CONT .[id number] [facility] Rx#:[id number] Azithromycin Inj 500 MG In NS 250 / 250 Inj 250 ML @ 250 mls/hr IV.SIG Q24H [facility] Rx#:[id number] Intralipid 20% Inj 250 ML @ 31. 250 / 250 25 mls/hr IV.SIG DAILY@1999 [facility] Rx#:[id number] MVI-12 Inj 10 ML Folvite Inj 1 4148.2874 / 4148.2874 MG Sodium Chloride 23.4% Inj 11 MEQ Sodium Acetate Inj 59 MEQ Magnesium Chloride Inj 10 MEQ KCl Inj 40 MEQ Calcium Chloride Inj 9 MEQ In TPN Fluid 2 Liter 2,000 ML @ 83 mls/hr IV.SIG DAILY@2000 [facility] Rx#:[id number] Zosyn 3.375 GM Premix 50 ML @ 100 / 100 50 / 50 100 mls/hr IV.SIG Q6H [facility] Rx#: [id number] Oral 720 / 720 0 / 0 Other 0 / 0 Output: Urine 2800 / 2800 Stool 75 / 75 300 / 300 Urine Amount (Catheter) 2700 / 2700 3175 / 3175 Condom 2700 / 2700 2875 / 2875 Indwelling Urethral Catheter 300 / 300 Gastric Drainage 850 / 850 Gastrojejunostomy Tube 850 / 850 Other: # Voids 1 # Urine Diapers 2 Date of Last Bowel Movement 10/29/17 10/29/17 # Bowel Movements 0 - Constitutional no acute distress - Routine HEENT Exam Head: Present: normocephalic, atraumatic - Routine Respiratory Exam Absent: accessory muscle use - Routine Abdominal Exam Present: soft, normoactive bowel sounds, distended. Absent: tenderness - Urinary Catheter Management Indwelling Urethral Catheter Cath placed during this visit: yes, but has since been removed by the nurse Reason for continuing: Decision to DC catheter Insertion date: 10/17/17 Insertion time: 17:30 Removal date: 10/25/17 Removal time: 14:38 Condom Cath placed during this visit: no <Alley Ruiz - Last Filed: 10/30/17 08:26> Vital signs: Vital Signs 10/29/17 18:00 10/29/17 20:00 10/29/17 21:00 Temperature 98.5 F 98 F Pulse Rate 89 68 Respiratory Rate 24 20 18 Blood Pressure 153/69 H 120/66 Pulse Oximetry 93 L 96 10/30/17 00:00 10/30/17 04:00 10/30/17 05:00 Temperature 97 F L 98.8 F Pulse Rate 78 62 Respiratory Rate 20 20 20 Blood Pressure 129/68 118/69 Pulse Oximetry 94 L 94 L 10/30/17 08:00 10/30/17 10:00 10/30/17 12:00 Temperature 97.4 F L 98.2 F Pulse Rate 81 82 77 Respiratory Rate 18 19 Blood Pressure 148/72 H 130/66 Pulse Oximetry 92 L 93 L Intake & Output 10/29/17 10/30/17 10/30/17 18:59 06:59 18:59 Intake Total 2070 / 2070 6748.2874 / 6748.2874 50 / 50 Output Total 3625 / 3625 6275 / 6275 Balance -1555 / -1040 660.0859 / 473.2874 50 / 50 Weight 99.3 kg Intake: IV 1350 / 1350 6748.2874 / 6748.2874 50 / 50 D5W Inj 1,000 ML @ 84 mls/hr IV 1000 / 1000 1999 / 1999 .CONT .[id number] [facility] Rx#:[id number] Azithromycin Inj 500 MG In NS 250 / 250 Inj 250 ML @ 250 mls/hr IV.SIG Q24H [facility] Rx#:[id number] Intralipid 20% Inj 250 ML @ 31. 250 / 250 25 mls/hr IV.SIG DAILY@1999 [facility] Rx#:[id number] MVI-12 Inj 10 ML Folvite Inj 1 4148.2874 / 4148.2874 MG Sodium Chloride 23.4% Inj 11 MEQ Sodium Acetate Inj 59 MEQ Magnesium Chloride Inj 10 MEQ KCl Inj 40 MEQ Calcium Chloride Inj 9 MEQ In TPN Fluid 2 Liter 2,000 ML @ 83 mls/hr IV.SIG DAILY@1999 [facility] Rx#:[id number] Zosyn 3.375 GM Premix 50 ML @ 100 / 100 100 / 100 50 / 50 100 mls/hr IV.SIG Q6H [facility] Rx#: [id number] Oral 720 / 720 0 / 0 Other 0 / 0 Output: Urine 2800 / 2800 Stool 75 / 75 300 / 300 Urine Amount (Catheter) 2700 / 2700 3175 / 3175 Condom 2700 / 2700 2875 / 2875 Indwelling Urethral Catheter 300 / 300 Gastric Drainage 850 / 850 Gastrojejunostomy Tube 850 / 850 Other: # Voids 1 # Urine Diapers 2 Date of Last Bowel Movement 10/29/17 10/29/17 # Bowel Movements 0 - Urinary Catheter Management Indwelling Urethral Catheter Cath placed during this visit: no Condom Cath placed during this visit: no <Kristine Villarreal - Last Filed: 10/30/17 17:58> Results - Labs CBC & Chem 7: 10/30/17 05:30 10/30/17 05:30 Laboratory Results - last 24 hr 10/29/17 10/29/17 10/30/17 18:35 20:20 01:14 WBC RBC Hgb Hct MCV MCH MCHC RDW Plt Count MPV Prelim Diff (Auto) Neut % (Auto) Lymph % (Auto) [place] % (Auto) Eos % (Auto) Baso % (Auto) Neut # (Auto) Lymph # (Auto) [place] # (Auto) Eos # (Auto) Baso # (Auto) Differential Comment Sodium Potassium Chloride Carbon Dioxide Anion Gap BUN Creatinine Estimated GFR POC Glucose 219 H 218 H 179 H Random Glucose Calcium Magnesium Total Bilirubin AST ALT Alkaline Phosphatase Total Protein Albumin Lipase 10/30/17 10/30/17 10/30/17 05:30 05:30 05:54 WBC 10.0 RBC 2.23 L Hgb 7.6 L Hct 22.9 L MCV 102.5 H MCH 34.3 H MCHC 33.4 RDW 27.2 H Plt Count 148 L MPV 9.8 Prelim Diff (Auto) Slide review pending Neut % (Auto) 69.9 Lymph % (Auto) 17.9 [place] % (Auto) 6.2 Eos % (Auto) 4.3 H Baso % (Auto) 1.7 Neut # (Auto) 7.0 Lymph # (Auto) 1.8 [place] # (Auto) 0.6 Eos # (Auto) 0.4 Baso # (Auto) 0.2 Differential Comment . Sodium 143 Potassium 3.7 Chloride 109 H Carbon Dioxide 27.3 Anion Gap 7 BUN 21 H Creatinine 1.10 Estimated GFR 64 L POC Glucose 220 H Random Glucose 204 H Calcium 7.7 L D Magnesium 1.9 Total Bilirubin 1.0 AST 30 ALT 27 Alkaline Phosphatase 88 Total Protein 5.7 L Albumin 1.7 L Lipase 1196 H - Procedures ERCP 10/18/2017 IMPRESSIONS: 1. A previously placed ampulla stent was seen extending from the orifice, removed by snare. 2. 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 3. Sphincterotomy done. 4. Ductal sweep with balloon and irrigation removing multiple variable size stones, sludge and debris. 5. Normal inclusion cholangiogram afterward <Alley Ruiz - Last Filed: 10/30/17 08:26> - Labs CBC & Chem 7: 10/30/17 05:30 10/30/17 05:30 Laboratory Results - last 24 hr 10/29/17 10/29/17 10/30/17 18:35 20:20 01:14 WBC RBC Hgb Hct MCV MCH MCHC RDW Plt Count MPV Prelim Diff (Auto) Neut % (Auto) Lymph % (Auto) [place] % (Auto) Eos % (Auto) Baso % (Auto) Neut # (Auto) Lymph # (Auto) [place] # (Auto) Eos # (Auto) Baso # (Auto) WBC Differential Seg Neuts % (Manual) Band Neuts % (Manual) Lymphocytes % (Manual) Monocytes % (Manual) Eosinophils % (Manual) Metamyelocytes % (Man) Myelocytes % (Man) Promyelocytes % (Man) Abs Neuts (Manual) Differential Comment Toxic Granulation Platelet Estimate Platelet Morphology Sodium Potassium Chloride Carbon Dioxide Anion Gap BUN Creatinine Estimated GFR POC Glucose 219 H 218 H 179 H Random Glucose Calcium Magnesium Total Bilirubin AST ALT Alkaline Phosphatase Total Protein Albumin Lipase 10/30/17 10/30/17 10/30/17 05:30 05:30 05:54 WBC 10.0 RBC 2.23 L Hgb 7.6 L Hct 22.9 L MCV 102.5 H MCH 34.3 H MCHC 33.4 RDW 27.2 H Plt Count 148 L MPV 9.8 Prelim Diff (Auto) Slide review pending Neut % (Auto) 69.9 Lymph % (Auto) 17.9 [place] % (Auto) 6.2 Eos % (Auto) 4.3 H Baso % (Auto) 1.7 Neut # (Auto) 7.0 Lymph # (Auto) 1.8 [place] # (Auto) 0.6 Eos # (Auto) 0.4 Baso # (Auto) 0.2 WBC Differential Manual diff final Seg Neuts % (Manual) 60 Band Neuts % (Manual) 19 H Lymphocytes % (Manual) 10 Monocytes % (Manual) 2 Eosinophils % (Manual) 1 Metamyelocytes % (Man) 4 H Myelocytes % (Man) 3 H Promyelocytes % (Man) 1 H Abs Neuts (Manual) 8.7 H Differential Comment . Toxic Granulation 1+ H Platelet Estimate Low L Platelet Morphology Normal Sodium 143 Potassium 3.7 Chloride 109 H Carbon Dioxide 27.3 Anion Gap 7 BUN 21 H Creatinine 1.10 Estimated GFR 64 L POC Glucose 220 H Random Glucose 204 H Calcium 7.7 L D Magnesium 1.9 Total Bilirubin 1.0 AST 30 ALT 27 Alkaline Phosphatase 88 Total Protein 5.7 L Albumin 1.7 L Lipase 1196 H 10/30/17 10/30/17 11:19 17:08 WBC RBC Hgb Hct MCV MCH MCHC RDW Plt Count MPV Prelim Diff (Auto) Neut % (Auto) Lymph % (Auto) [place] % (Auto) Eos % (Auto) Baso % (Auto) Neut # (Auto) Lymph # (Auto) [place] # (Auto) Eos # (Auto) Baso # (Auto) WBC Differential Seg Neuts % (Manual) Band Neuts % (Manual) Lymphocytes % (Manual) Monocytes % (Manual) Eosinophils % (Manual) Metamyelocytes % (Man) Myelocytes % (Man) Promyelocytes % (Man) Abs Neuts (Manual) Differential Comment Toxic Granulation Platelet Estimate Platelet Morphology Sodium Potassium Chloride Carbon Dioxide Anion Gap BUN Creatinine Estimated GFR POC Glucose 222 H 197 H Random Glucose Calcium Magnesium Total Bilirubin AST ALT Alkaline Phosphatase Total Protein Albumin Lipase <Kristine Villarreal - Last Filed: 10/30/17 17:58> Assessment and Plan (1) Cholangitis Status: Acute Code(s): K83.0 - Cholangitis (2) Elevated LFTs Status: Acute Code(s): R94.5 - Abnormal results of liver function studies (3) Pancreatitis Status: Acute Code(s): K85.90 - Acute pancreatitis without necrosis or infection, unspecified - Plan Assessment: - Elevated LFTs and pancreatitis with recent ERCP with findings of biliary sludge and bile duct dilatation S/P balloon sweep and plastic stent placement on 10/11- Pt with history of choledocholithiasis and cholangitis. History of cholecystectomy. Complaining of: upper abdominal pain that began at 9pm last night after dinner at 8pm, constant, described as "hunger pains". Denies associated fever, chills, nausea, vomiting. Denies history of pancreatitis. Denies ETOH. CT abdomen and pelvis W IV contrast (10/17) Moderate peripancreatic inflammatory stranding consistent with pancreatitis. Pancreas enhances uniformly and there is no peripancreatic fluid collection at this time. Interval placement of CBD stent with persistent intra and extra hepatic ductal dilatation. Focal adynamic ileus in the proximal jejunum secondary to the peripancreatic inflammatory changes S/P ERCP (10/18) --> A previously placed ampulla stent was seen extending from the orifice, removed by snare. 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 Sphincterotomy done. Ductal sweep with balloon and irrigation removing multiple variable size stones, sludge and debris. Normal inclusion cholangiogram afterward Repeat CT abdomen and pelvis (10/19) --> Consistent with pancreatitis, new dilatation in the distal esophagus, stomach, and proximal small bowel, contrast is seen to reach the colon which could be asymmetric ileus, some degree of obstruction cannot be excluded. Pneumobilia, previously seen biliary duct stent has been removed, CBD is dilated measuring 1.8 cm. 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 Has been started on TPN- GJ placement today by IR. Has been having BMs for the past few days, however abdomen has remained distended. (10/29) Pt S/P GJ tube placement by IR yesterday, currently J tube is to gravity , discussed with RN will put G tube to suction. Abdomen distended and semi-firm. Pt has had stool today, currently has rectal bag, also had BM yesterday. Pt denies nausea, vomiting. Will try trickle feeds through J tube, G tube to suction. Goal to increase TF and wean off of TPN. (10/30) Pt states he feels well today. TF running at 10 mL/hr through J tube, G tube to gravity. Denies nausea, vomiting, abdominal pain. No BM yet today. Abdomen distended but soft. Will increase TF, once reaches goal decrease TPN by half and then discontinue when current supplies are depleted Plan: Increase Vital 1.5 to goal of 65 mL/hr Once TF At goal decrease TPN by half and wean off G tube to gravity Continue Reglan Monitor stool count Further recommendations to follow Pt has been seen and examined by myself and Dr. Villarreal and this note is written on his behalf <Alley Ruiz - Last Filed: 10/30/17 08:26> (1) Cholangitis Status: Acute Code(s): K83.0 - Cholangitis (2) Elevated LFTs Status: Acute Code(s): R94.5 - Abnormal results of liver function studies (3) Pancreatitis Status: Acute Code(s): K85.90 - Acute pancreatitis without necrosis or infection, unspecified <Kristine Villarreal - Last Filed: 10/30/17 17:58>
[2017-10-30] MEDS: Azithromycin Inj 500 MG in Sodium Chlor 0.9% Inj 250 ML IV.SIG SCH (08:31)
[2017-10-30] MEDS: Heparin Central Flush 100 UNIT/ML 5 ML Vial IV.FLUSH SCH (08:36)
[2017-10-30 08:43] LABS: Eosinophils 1 % (0-4); Lymphocytes 10 % (9-44); Metamyelocytes 4 % (0-1); Monocytes 2 % (0-8); Myelocytes 3 % (0-0); Promyelocyte 1 % (0-0)
[2017-10-30 08:44] LABS: Platelet Morphology Normal (Normal); Toxic Granulation 1+
[2017-10-30] MEDS: Pantoprazole Inj 40 MG Vial IV.PUSH SCH (13:59)
--- NOTE | 2017-10-30 14:09 | P.PNGS ---
Subjective Patient reports: feels better (tolerating tf, stool output through rectal tube, less distension) Physical Exam Vital signs: Vital Signs 10/29/17 16:00 10/29/17 18:00 10/29/17 20:00 Temperature 98.4 F 98.5 F Pulse Rate 85 89 Respiratory Rate 24 24 20 Blood Pressure 148/67 H 153/69 H Pulse Oximetry 95 93 L 10/29/17 21:00 10/30/17 00:00 10/30/17 04:00 Temperature 98 F 97 F L Pulse Rate 68 78 Respiratory Rate 18 20 20 Blood Pressure 120/66 129/68 Pulse Oximetry 96 94 L 10/30/17 05:00 10/30/17 08:00 10/30/17 10:00 Temperature 98.8 F 97.4 F L Pulse Rate 62 81 82 Respiratory Rate 20 18 Blood Pressure 118/69 148/72 H Pulse Oximetry 94 L 92 L 10/30/17 12:00 Temperature 98.2 F Pulse Rate 77 Respiratory Rate 19 Blood Pressure 130/66 Pulse Oximetry 93 L Intake & Output 10/29/17 10/30/17 10/30/17 18:59 06:59 18:59 Intake Total 2070 / 2070 6698.2874 / 6698.2874 Output Total 3625 / 3625 6275 / 6275 Balance -1555 / -8563 548.9410 / 423.2874 Weight 99.3 kg Intake: IV 1350 / 1350 6698.2874 / 6698.2874 D5W Inj 1,000 ML @ 84 mls/hr IV 1000 / 1000 1999 / 1999 .CONT .[id number] [facility] Rx#:[id number] Azithromycin Inj 500 MG In NS 250 / 250 Inj 250 ML @ 250 mls/hr IV.SIG Q24H [facility] Rx#:[id number] Intralipid 20% Inj 250 ML @ 31. 250 / 250 25 mls/hr IV.SIG DAILY@1999 [facility] Rx#:[id number] MVI-12 Inj 10 ML Folvite Inj 1 4148.2874 / 4148.2874 MG Sodium Chloride 23.4% Inj 11 MEQ Sodium Acetate Inj 59 MEQ Magnesium Chloride Inj 10 MEQ KCl Inj 40 MEQ Calcium Chloride Inj 9 MEQ In TPN Fluid 2 Liter 2,000 ML @ 83 mls/hr IV.SIG DAILY@1999 [facility] Rx#:[id number] Zosyn 3.375 GM Premix 50 ML @ 100 / 100 50 / 50 100 mls/hr IV.SIG Q6H [facility] Rx#: [id number] Oral 720 / 720 0 / 0 Other 0 / 0 Output: Urine 2800 / 2800 Stool 75 / 75 300 / 300 Urine Amount (Catheter) 2700 / 2700 3175 / 3175 Condom 2700 / 2700 2875 / 2875 Indwelling Urethral Catheter 300 / 300 Gastric Drainage 850 / 850 Gastrojejunostomy Tube 850 / 850 Other: # Voids 1 # Urine Diapers 2 Date of Last Bowel Movement 10/29/17 10/29/17 # Bowel Movements 0 - Routine Abdominal Exam Present: soft, distended (g tube c/d/i, non tender) - Urinary Catheter Management Indwelling Urethral Catheter Cath placed during this visit: yes, but has since been removed by the nurse Reason for continuing: Decision to DC catheter Insertion date: 10/17/17 Insertion time: 17:30 Removal date: 10/25/17 Removal time: 14:38 Condom Cath placed during this visit: no Assessment and Plan - Assessment (1) Pancreatitis Code(s): K85.90 - Acute pancreatitis without necrosis or infection, unspecified Status: Acute - Plan pancreatits, ileus- still with distension SBFT shows partial sbo, pancreatitis, patient appears improving but still moving slow +bowel sounds still with distension but less s/p G j tube by IR PLAN abdominal exams labs will follow s/p IR g-tube- to gravity bag j port to 10cc TF, wean tpn as tolerating tf encourage oob to chair
--- NOTE | 2017-10-30 14:09 | P.PNIM ---
Subjective Interval history: Slightly improved lipase. Tolerating tube feeds at 10ml/hr rate. No new complaints from patient. Physical Exam Vital signs: Vital Signs 10/29/17 16:00 10/29/17 18:00 10/29/17 20:00 Temperature 98.4 F 98.5 F Pulse Rate 85 89 Respiratory Rate 24 24 20 Blood Pressure 148/67 H 153/69 H Pulse Oximetry 95 93 L 10/29/17 21:00 10/30/17 00:00 10/30/17 04:00 Temperature 98 F 97 F L Pulse Rate 68 78 Respiratory Rate 18 20 20 Blood Pressure 120/66 129/68 Pulse Oximetry 96 94 L 10/30/17 05:00 10/30/17 08:00 10/30/17 10:00 Temperature 98.8 F 97.4 F L Pulse Rate 62 81 82 Respiratory Rate 20 18 Blood Pressure 118/69 148/72 H Pulse Oximetry 94 L 92 L 10/30/17 12:00 Temperature 98.2 F Pulse Rate 77 Respiratory Rate 19 Blood Pressure 130/66 Pulse Oximetry 93 L Intake & Output 10/29/17 10/30/17 10/30/17 18:59 06:59 18:59 Intake Total 2070 / 2070 6748.2874 / 6748.2874 Output Total 3625 / 3625 6275 / 6275 Balance -1555 / -4072 522.6009 / 473.2874 Weight 99.3 kg Intake: IV 1350 / 1350 6748.2874 / 6748.2874 D5W Inj 1,000 ML @ 84 mls/hr IV 1000 / 1000 1999 / 1999 .CONT .[id number] [facility] Rx#:[id number] Azithromycin Inj 500 MG In NS 250 / 250 Inj 250 ML @ 250 mls/hr IV.SIG Q24H [facility] Rx#:[id number] Intralipid 20% Inj 250 ML @ 31. 250 / 250 25 mls/hr IV.SIG DAILY@1999 [facility] Rx#:[id number] MVI-12 Inj 10 ML Folvite Inj 1 4148.2874 / 4148.2874 MG Sodium Chloride 23.4% Inj 11 MEQ Sodium Acetate Inj 59 MEQ Magnesium Chloride Inj 10 MEQ KCl Inj 40 MEQ Calcium Chloride Inj 9 MEQ In TPN Fluid 2 Liter 2,000 ML @ 83 mls/hr IV.SIG DAILY@1999 [facility] Rx#:[id number] Zosyn 3.375 GM Premix 50 ML @ 100 / 100 100 / 100 100 mls/hr IV.SIG Q6H [facility] Rx#: [id number] Oral 720 / 720 0 / 0 Other 0 / 0 Output: Urine 2800 / 2800 Stool 75 / 75 300 / 300 Urine Amount (Catheter) 2700 / 2700 3175 / 3175 Condom 2700 / 2700 2875 / 2875 Indwelling Urethral Catheter 300 / 300 Gastric Drainage 850 / 850 Gastrojejunostomy Tube 850 / 850 Other: # Voids 1 # Urine Diapers 2 Date of Last Bowel Movement 10/29/17 10/29/17 # Bowel Movements 0 Narrative: GENERAL: NAD, A&Ox3 HEAD: Normocephalic. NECK: Supple, trachea midline. No lymphadenopathy. EYES: No scleral icterus. No injection or drainage. CARDIOVASCULAR: Regular rate and rhythm without murmurs, gallops, or rubs. RESPIRATORY: Breath sounds equal bilaterally. No accessory muscle use. GASTROINTESTINAL: Abdomen soft, non-tender, nondistended. MUSCULOSKELETAL: No cyanosis, or edema. SKIN: Warm and dry. NEURO: No focal neurological deficits. - Urinary Catheter Management Indwelling Urethral Catheter Cath placed during this visit: yes, but has since been removed by the nurse Reason for continuing: Decision to DC catheter Insertion date: 10/17/17 Insertion time: 17:30 Removal date: 10/25/17 Removal time: 14:38 Condom Cath placed during this visit: no Results - Labs CBC & Chem 7: 10/30/17 05:30 10/30/17 05:30 Laboratory Results - last 24 hr 10/29/17 10/29/17 10/30/17 18:35 20:20 01:14 WBC RBC Hgb Hct MCV MCH MCHC RDW Plt Count MPV Prelim Diff (Auto) Neut % (Auto) Lymph % (Auto) [place] % (Auto) Eos % (Auto) Baso % (Auto) Neut # (Auto) Lymph # (Auto) [place] # (Auto) Eos # (Auto) Baso # (Auto) WBC Differential Seg Neuts % (Manual) Band Neuts % (Manual) Lymphocytes % (Manual) Monocytes % (Manual) Eosinophils % (Manual) Metamyelocytes % (Man) Myelocytes % (Man) Promyelocytes % (Man) Abs Neuts (Manual) Differential Comment Toxic Granulation Platelet Estimate Platelet Morphology Sodium Potassium Chloride Carbon Dioxide Anion Gap BUN Creatinine Estimated GFR POC Glucose 219 H 218 H 179 H Random Glucose Calcium Magnesium Total Bilirubin AST ALT Alkaline Phosphatase Total Protein Albumin Lipase 10/30/17 10/30/17 10/30/17 05:30 05:30 05:54 WBC 10.0 RBC 2.23 L Hgb 7.6 L Hct 22.9 L MCV 102.5 H MCH 34.3 H MCHC 33.4 RDW 27.2 H Plt Count 148 L MPV 9.8 Prelim Diff (Auto) Slide review pending Neut % (Auto) 69.9 Lymph % (Auto) 17.9 [place] % (Auto) 6.2 Eos % (Auto) 4.3 H Baso % (Auto) 1.7 Neut # (Auto) 7.0 Lymph # (Auto) 1.8 [place] # (Auto) 0.6 Eos # (Auto) 0.4 Baso # (Auto) 0.2 WBC Differential Manual diff final Seg Neuts % (Manual) 60 Band Neuts % (Manual) 19 H Lymphocytes % (Manual) 10 Monocytes % (Manual) 2 Eosinophils % (Manual) 1 Metamyelocytes % (Man) 4 H Myelocytes % (Man) 3 H Promyelocytes % (Man) 1 H Abs Neuts (Manual) 8.7 H Differential Comment . Toxic Granulation 1+ H Platelet Estimate Low L Platelet Morphology Normal Sodium 143 Potassium 3.7 Chloride 109 H Carbon Dioxide 27.3 Anion Gap 7 BUN 21 H Creatinine 1.10 Estimated GFR 64 L POC Glucose 220 H Random Glucose 204 H Calcium 7.7 L D Magnesium 1.9 Total Bilirubin 1.0 AST 30 ALT 27 Alkaline Phosphatase 88 Total Protein 5.7 L Albumin 1.7 L Lipase 1196 H 10/30/17 11:19 WBC RBC Hgb Hct MCV MCH MCHC RDW Plt Count MPV Prelim Diff (Auto) Neut % (Auto) Lymph % (Auto) [place] % (Auto) Eos % (Auto) Baso % (Auto) Neut # (Auto) Lymph # (Auto) [place] # (Auto) Eos # (Auto) Baso # (Auto) WBC Differential Seg Neuts % (Manual) Band Neuts % (Manual) Lymphocytes % (Manual) Monocytes % (Manual) Eosinophils % (Manual) Metamyelocytes % (Man) Myelocytes % (Man) Promyelocytes % (Man) Abs Neuts (Manual) Differential Comment Toxic Granulation Platelet Estimate Platelet Morphology Sodium Potassium Chloride Carbon Dioxide Anion Gap BUN Creatinine Estimated GFR POC Glucose 222 H Random Glucose Calcium Magnesium Total Bilirubin AST ALT Alkaline Phosphatase Total Protein Albumin Lipase - Procedures ERCP 10/18/2017 IMPRESSIONS: 1. A previously placed ampulla stent was seen extending from the orifice, removed by snare. 2. 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 3. Sphincterotomy done. 4. Ductal sweep with balloon and irrigation removing multiple variable size stones, sludge and debris. 5. Normal inclusion cholangiogram afterward Assessment and Plan - Assessment (1) Pancreatitis Code(s): K85.90 - Acute pancreatitis without necrosis or infection, unspecified Status: Acute (2) Ileus, postoperative Code(s): K91.89 - Other postprocedural complications and disorders of digestive system; K56.7 - Ileus, unspecified Status: Acute - Plan 87 year old male with history of choledocholithiasis and cholangitis status post recent ERCP admitted on 10/17 with progressive abdominal pain. CT A/ P as well as lipase level indicate acute pancreatitis. Course has been complicated by ileus. Pancreatitis shows slight improvement today. Continue monitoring lipase levels. Tolerating tube feeds thus far. Pancreatitis Partial small bowel obstruction Persistent elevation lipase Feeding tube placement occurred on 10/28/2017 Continue physical therapy Continue monitoring for normal bowel activity Incentive spirometer GI following Acute Kidney Injury Hypernatremia Hypokalemia Monitor BUN and creatinine Monitor sodium levels Monitor potassium levels and replace as needed Pneumonia Continue Zosyn and Azithromycin Continue oxygen as needed Continue duo nebs as needed Anemia Acute on chronic Patient had a transfusion of 2 units packed red blood cells on 10/27/2017 Continue to monitor hemoglobin Atrial fibrillation First-degree AV block Right bundle branch block Currently rate controlled Follow on telemetry DVT prophylaxis SCDs
[2017-10-31] MEDS: Insulin NovoLOG Aspart Correctional Sugar Inj SQ SCH ×4 (00:48→17:54)
[2017-10-31] MEDS: Piperacil/Tazo 3.375 GM Premix 50 ML IV.SIG SCH ×4 (00:49→17:36)
[2017-10-31 06:06] LABS: Baso % (Auto) 0.2 % (0.0-2.0); Eos # (Auto) 0.4 th/mm3 (0.0-0.4); Eos % (Auto) 4.5 % (0.0-4.0); Hematocrit 27.9 % (39.0-51.0); Hemoglobin 10.4 gm/dL (13.0-17.0); Lymph # (Auto) 1.7 th/mm3 (1.0-4.8); Lymph % (Auto) 17.6 % (9.0-44.0); Mean Corpuscular Hemoglobin 38.5 pg (27.0-34.0); Mean Corpuscular Volume 103.6 fL (80.0-100.0); Mean Platelet Volume 10.6 fL (7.0-11.0); Mono # (Auto) 0.6 th/mm3 (0.0-0.9); Neut # (Auto) 6.9 th/mm3 (1.8-7.7); Neut % (Auto) 71.7 % (16.0-70.0); Platelet Count 141 th/mm3 (150-450); Red Blood Count 2.69 mil/mm3 (4.50-5.90); Red Cell Distribution Width 27.5 % (11.6-17.2); White Blood Count 9.7 th/mm3 (4.0-11.0)
[2017-10-31 06:13] LABS: Mean Corpuscular HGB Conc 37.2 % (32.0-36.0)
[2017-10-31 07:17] LABS: Albumin 1.6 g/dL (3.4-5.0); Calcium 6.7 mg/dL (8.5-10.1); Carbon Dioxide 25.1 meq/L (21.0-32.0); Potassium 5.5 meq/L (3.5-5.1); Total Protein 5.7 g/dL (6.4-8.2)
[2017-10-31 08:10] LABS: Eosinophils 3 % (0-4); Lymphocytes 19 % (9-44); Metamyelocytes 1 % (0-1); Monocytes 8 % (0-8); Myelocytes 1 % (0-0); Platelet Morphology Normal (Normal)
[2017-10-31] MEDS: Senna/Docusate Sodium 8.6/50 MG Tablet PO SCH ×2 (08:35→21:17)
[2017-10-31] MEDS: Heparin Central Flush 100 UNIT/ML 5 ML Vial IV.FLUSH SCH (08:37)
[2017-10-31] MEDS: Azithromycin Inj 500 MG in Sodium Chlor 0.9% Inj 250 ML IV.SIG SCH (08:38)
--- NOTE | 2017-10-31 11:39 | P.PNGS ---
Subjective Patient reports: no new complaints (no pain complaint, tolerating tf, stool output) Physical Exam Vital signs: Vital Signs 10/30/17 12:00 10/30/17 16:00 10/30/17 20:00 Temperature 98.2 F 97.1 F L 97.8 F Pulse Rate 77 95 H 97 H Respiratory Rate 19 19 19 Blood Pressure 130/66 140/67 128/58 L Pulse Oximetry 93 L 95 95 10/30/17 20:25 10/31/17 00:00 10/31/17 04:00 Temperature 97.7 F 97.7 F Pulse Rate 94 H 98 H 88 Respiratory Rate 18 18 Blood Pressure 102/56 L 124/57 L Pulse Oximetry 95 94 L 10/31/17 08:43 Temperature 97.6 F Pulse Rate 93 H Respiratory Rate 16 Blood Pressure 131/64 Pulse Oximetry 96 Intake & Output 10/30/17 10/31/17 10/31/17 18:59 06:59 18:59 Intake Total 350 / 350 1050 / 1050 Output Total 3000 / 3000 350 / 350 Balance -2650 / -2650 700 / 700 Weight 97.7 kg Intake: IV 350 / 350 1050 / 1050 D5W Inj 1,000 ML @ 84 mls/hr IV 1000 / 1000 .CONT .[id number] [facility] Rx#:[id number] Azithromycin Inj 500 MG In NS 250 / 250 Inj 250 ML @ 250 mls/hr IV.SIG Q24H [facility] Rx#:[id number] Zosyn 3.375 GM Premix 50 ML @ 100 / 100 50 / 50 100 mls/hr IV.SIG Q6H [facility] Rx#: [id number] Oral 0 / 0 0 / 0 Output: Urine 3000 / 3000 Gastric Drainage 350 / 350 Gastrojejunostomy Tube 350 / 350 Other: Date of Last Bowel Movement 10/29/17 10/31/17 # Bowel Movements 0 - Routine Abdominal Exam Present: soft (less distended, g/j tube c/d/i, bilious output) - Urinary Catheter Management Indwelling Urethral Catheter Cath placed during this visit: yes, but has since been removed by the nurse Reason for continuing: Decision to DC catheter Insertion date: 10/17/17 Insertion time: 17:30 Removal date: 10/25/17 Removal time: 14:38 Condom Cath placed during this visit: no Assessment and Plan - Assessment (1) Pancreatitis Code(s): K85.90 - Acute pancreatitis without necrosis or infection, unspecified Status: Acute - Plan pancreatits, ileus- still with distension SBFT shows partial sbo, pancreatitis, patient appears improving but still moving slow +bowel sounds still with distension but less, stool output s/p G j tube by IR PLAN, pancreatitis appears resolving abdominal exams labs will follow s/p IR g-tube- to gravity bag j port to 10cc TF, wean tpn as tolerating tf, increase tf as tolerated encourage oob to chair
[2017-10-31] MEDS: Dextrose 5% in Water Inj 1,000 ML IV.CONT SCH ×2 (12:47→21:22)
--- NOTE | 2017-10-31 13:29 | P.PNGI ---
Subjective Interval history: Pt very lethargic today. Rectal tube to nieto with approximatley 40 cc of liquid stool. G tube to nieto with small amount of drainage. TF running at 20 mL /hr, per RN this was increased from 10 mL/hr last night, she reports no high residuals. Pts at bedside with multiple questions, all questions answered. <TejasAlley cook - Last Filed: 10/31/17 13:21> Physical Exam Vital signs: Vital Signs 10/30/17 16:00 10/30/17 20:00 10/30/17 20:25 Temperature 97.1 F L 97.8 F Pulse Rate 95 H 97 H 94 H Respiratory Rate 19 19 Blood Pressure 140/67 128/58 L Pulse Oximetry 95 95 10/31/17 00:00 10/31/17 04:00 10/31/17 08:43 Temperature 97.7 F 97.7 F 97.6 F Pulse Rate 98 H 88 93 H Respiratory Rate 18 18 16 Blood Pressure 102/56 L 124/57 L 131/64 Pulse Oximetry 95 94 L 96 10/31/17 12:51 Temperature 98.5 F Pulse Rate 95 H Respiratory Rate 16 Blood Pressure 149/59 H Pulse Oximetry 96 Intake & Output 10/30/17 10/31/17 10/31/17 18:59 06:59 18:59 Intake Total 350 / 350 1100 / 1100 Output Total 3000 / 3000 350 / 350 Balance -2650 / -2650 750 / 750 Weight 97.7 kg Intake: IV 350 / 350 1100 / 1100 D5W Inj 1,000 ML @ 84 mls/hr IV 1000 / 1000 .CONT .[id number] [facility] Rx#:[id number] Azithromycin Inj 500 MG In NS 250 / 250 Inj 250 ML @ 250 mls/hr IV.SIG Q24H [facility] Rx#:[id number] Zosyn 3.375 GM Premix 50 ML @ 100 / 100 100 / 100 100 mls/hr IV.SIG Q6H [facility] Rx#: [id number] Oral 0 / 0 0 / 0 Output: Urine 3000 / 3000 Gastric Drainage 350 / 350 Gastrojejunostomy Tube 350 / 350 Other: Date of Last Bowel Movement 10/29/17 10/31/17 # Bowel Movements 0 - Constitutional no acute distress - Routine HEENT Exam Head: Present: normocephalic, atraumatic - Routine Respiratory Exam Absent: accessory muscle use - Routine Abdominal Exam Present: soft, normoactive bowel sounds, distended. Absent: tenderness Comments: J tube to TF @ 20 mL/hr, G tube to Nieto bag, rectal tube to nieto bag - Routine Skin Exam Present: dry, warm - Urinary Catheter Management Indwelling Urethral Catheter Cath placed during this visit: yes, but has since been removed by the nurse Reason for continuing: Decision to DC catheter Insertion date: 10/17/17 Insertion time: 17:30 Removal date: 10/25/17 Removal time: 14:38 Condom Cath placed during this visit: no <Alley Ruiz - Last Filed: 10/31/17 13:21> Vital signs: Vital Signs 10/30/17 20:00 10/30/17 20:25 10/31/17 00:00 Temperature 97.8 F 97.7 F Pulse Rate 97 H 94 H 98 H Respiratory Rate 19 18 Blood Pressure 128/58 L 102/56 L Pulse Oximetry 95 95 10/31/17 04:00 10/31/17 08:43 10/31/17 12:51 Temperature 97.7 F 97.6 F 98.5 F Pulse Rate 88 93 H 95 H Respiratory Rate 18 16 16 Blood Pressure 124/57 L 131/64 149/59 H Pulse Oximetry 94 L 96 96 Intake & Output 10/30/17 10/31/17 10/31/17 18:59 06:59 18:59 Intake Total 350 / 350 1100 / 1100 300 / 300 Output Total 3000 / 3000 350 / 350 Balance -2650 / -2650 750 / 750 300 / 300 Weight 97.7 kg Intake: IV 350 / 350 1100 / 1100 300 / 300 D5W Inj 1,000 ML @ 84 mls/hr IV 1000 / 1000 .CONT .[id number] [facility] Rx#:[id number] Azithromycin Inj 500 MG In NS 250 / 250 250 / 250 Inj 250 ML @ 250 mls/hr IV.SIG Q24H [facility] Rx#:[id number] Zosyn 3.375 GM Premix 50 ML @ 100 / 100 100 / 100 50 / 50 100 mls/hr IV.SIG Q6H [facility] Rx#: [id number] Oral 0 / 0 0 / 0 Output: Urine 3000 / 3000 Gastric Drainage 350 / 350 Gastrojejunostomy Tube 350 / 350 Other: Date of Last Bowel Movement 10/29/17 10/31/17 # Bowel Movements 0 - Urinary Catheter Management Indwelling Urethral Catheter Cath placed during this visit: no Condom Cath placed during this visit: no <Kristine Villarreal - Last Filed: 10/31/17 18:44> Results - Labs CBC & Chem 7: 10/31/17 05:56 10/31/17 05:56 Laboratory Results - last 24 hr 10/30/17 10/30/17 10/31/17 17:08 20:40 00:42 WBC RBC Hgb Hct MCV MCH MCHC RDW Plt Count MPV Prelim Diff (Auto) Neut % (Auto) Lymph % (Auto) [place] % (Auto) Eos % (Auto) Baso % (Auto) Neut # (Auto) Lymph # (Auto) [place] # (Auto) Eos # (Auto) Baso # (Auto) WBC Differential Seg Neuts % (Manual) Band Neuts % (Manual) Lymphocytes % (Manual) Monocytes % (Manual) Eosinophils % (Manual) Metamyelocytes % (Man) Myelocytes % (Man) Abs Neuts (Manual) Differential Comment Platelet Estimate Platelet Morphology Sodium Potassium Chloride Carbon Dioxide Anion Gap BUN Creatinine Estimated GFR POC Glucose 197 H 211 H 223 H Random Glucose Calcium Prot Corrected Calcium Total Bilirubin AST ALT Alkaline Phosphatase Total Protein Albumin Lipase 10/31/17 10/31/17 10/31/17 05:27 05:56 05:56 WBC 9.7 RBC 2.69 L Hgb 10.4 L D Hct 27.9 L MCV 103.6 H MCH 38.5 H MCHC 37.2 H RDW 27.5 H Plt Count 141 L MPV 10.6 Prelim Diff (Auto) Slide review pending Neut % (Auto) 71.7 H Lymph % (Auto) 17.6 [place] % (Auto) 6.0 Eos % (Auto) 4.5 H Baso % (Auto) 0.2 Neut # (Auto) 6.9 Lymph # (Auto) 1.7 [place] # (Auto) 0.6 Eos # (Auto) 0.4 Baso # (Auto) 0.0 WBC Differential Manual diff final Seg Neuts % (Manual) 57 Band Neuts % (Manual) 11 H Lymphocytes % (Manual) 19 Monocytes % (Manual) 8 Eosinophils % (Manual) 3 Metamyelocytes % (Man) 1 Myelocytes % (Man) 1 H Abs Neuts (Manual) 6.8 Differential Comment . Platelet Estimate Low L Platelet Morphology Normal Sodium 132 L D Potassium 5.5 H D Chloride 100 D Carbon Dioxide 25.1 Anion Gap 7 BUN 20 H Creatinine 1.17 Estimated GFR 59 L POC Glucose 243 H Random Glucose 408 H D Calcium 6.7 L* D Prot Corrected Calcium 7.4 L* Total Bilirubin 1.1 H AST 38 H ALT 27 Alkaline Phosphatase 94 Total Protein 5.7 L Albumin 1.6 L Lipase 1193 H 10/31/17 12:01 WBC RBC Hgb Hct MCV MCH MCHC RDW Plt Count MPV Prelim Diff (Auto) Neut % (Auto) Lymph % (Auto) [place] % (Auto) Eos % (Auto) Baso % (Auto) Neut # (Auto) Lymph # (Auto) [place] # (Auto) Eos # (Auto) Baso # (Auto) WBC Differential Seg Neuts % (Manual) Band Neuts % (Manual) Lymphocytes % (Manual) Monocytes % (Manual) Eosinophils % (Manual) Metamyelocytes % (Man) Myelocytes % (Man) Abs Neuts (Manual) Differential Comment Platelet Estimate Platelet Morphology Sodium Potassium Chloride Carbon Dioxide Anion Gap BUN Creatinine Estimated GFR POC Glucose 243 H Random Glucose Calcium Prot Corrected Calcium Total Bilirubin AST ALT Alkaline Phosphatase Total Protein Albumin Lipase - Procedures ERCP 10/18/2017 IMPRESSIONS: 1. A previously placed ampulla stent was seen extending from the orifice, removed by snare. 2. 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 3. Sphincterotomy done. 4. Ductal sweep with balloon and irrigation removing multiple variable size stones, sludge and debris. 5. Normal inclusion cholangiogram afterward <Alley Ruiz - Last Filed: 10/31/17 13:21> - Labs CBC & Chem 7: 10/31/17 05:56 10/31/17 05:56 Laboratory Results - last 24 hr 10/30/17 10/31/17 10/31/17 20:40 00:42 05:27 WBC RBC Hgb Hct MCV MCH MCHC RDW Plt Count MPV Prelim Diff (Auto) Neut % (Auto) Lymph % (Auto) [place] % (Auto) Eos % (Auto) Baso % (Auto) Neut # (Auto) Lymph # (Auto) [place] # (Auto) Eos # (Auto) Baso # (Auto) WBC Differential Seg Neuts % (Manual) Band Neuts % (Manual) Lymphocytes % (Manual) Monocytes % (Manual) Eosinophils % (Manual) Metamyelocytes % (Man) Myelocytes % (Man) Abs Neuts (Manual) Differential Comment Platelet Estimate Platelet Morphology Sodium Potassium Chloride Carbon Dioxide Anion Gap BUN Creatinine Estimated GFR POC Glucose 211 H 223 H 243 H Random Glucose Calcium Prot Corrected Calcium Total Bilirubin AST ALT Alkaline Phosphatase Total Protein Albumin Lipase 10/31/17 10/31/17 10/31/17 05:56 05:56 12:01 WBC 9.7 RBC 2.69 L Hgb 10.4 L D Hct 27.9 L MCV 103.6 H MCH 38.5 H MCHC 37.2 H RDW 27.5 H Plt Count 141 L MPV 10.6 Prelim Diff (Auto) Slide review pending Neut % (Auto) 71.7 H Lymph % (Auto) 17.6 [place] % (Auto) 6.0 Eos % (Auto) 4.5 H Baso % (Auto) 0.2 Neut # (Auto) 6.9 Lymph # (Auto) 1.7 [place] # (Auto) 0.6 Eos # (Auto) 0.4 Baso # (Auto) 0.0 WBC Differential Manual diff final Seg Neuts % (Manual) 57 Band Neuts % (Manual) 11 H Lymphocytes % (Manual) 19 Monocytes % (Manual) 8 Eosinophils % (Manual) 3 Metamyelocytes % (Man) 1 Myelocytes % (Man) 1 H Abs Neuts (Manual) 6.8 Differential Comment . Platelet Estimate Low L Platelet Morphology Normal Sodium 132 L D Potassium 5.5 H D Chloride 100 D Carbon Dioxide 25.1 Anion Gap 7 BUN 20 H Creatinine 1.17 Estimated GFR 59 L POC Glucose 243 H Random Glucose 408 H D Calcium 6.7 L* D Prot Corrected Calcium 7.4 L* Total Bilirubin 1.1 H AST 38 H ALT 27 Alkaline Phosphatase 94 Total Protein 5.7 L Albumin 1.6 L Lipase 1193 H 10/31/17 17:06 WBC RBC Hgb Hct MCV MCH MCHC RDW Plt Count MPV Prelim Diff (Auto) Neut % (Auto) Lymph % (Auto) [place] % (Auto) Eos % (Auto) Baso % (Auto) Neut # (Auto) Lymph # (Auto) [place] # (Auto) Eos # (Auto) Baso # (Auto) WBC Differential Seg Neuts % (Manual) Band Neuts % (Manual) Lymphocytes % (Manual) Monocytes % (Manual) Eosinophils % (Manual) Metamyelocytes % (Man) Myelocytes % (Man) Abs Neuts (Manual) Differential Comment Platelet Estimate Platelet Morphology Sodium Potassium Chloride Carbon Dioxide Anion Gap BUN Creatinine Estimated GFR POC Glucose 185 H Random Glucose Calcium Prot Corrected Calcium Total Bilirubin AST ALT Alkaline Phosphatase Total Protein Albumin Lipase <Kristine Villarreal - Last Filed: 10/31/17 18:44> Assessment and Plan (1) Cholangitis Status: Acute Code(s): K83.0 - Cholangitis (2) Elevated LFTs Status: Acute Code(s): R94.5 - Abnormal results of liver function studies (3) Pancreatitis Status: Acute Code(s): K85.90 - Acute pancreatitis without necrosis or infection, unspecified - Plan Assessment: - Elevated LFTs and pancreatitis with recent ERCP with findings of biliary sludge and bile duct dilatation S/P balloon sweep and plastic stent placement on 10/11- Pt with history of choledocholithiasis and cholangitis. History of cholecystectomy. Complaining of: upper abdominal pain that began at 9pm last night after dinner at 8pm, constant, described as "hunger pains". Denies associated fever, chills, nausea, vomiting. Denies history of pancreatitis. Denies ETOH. CT abdomen and pelvis W IV contrast (10/17) Moderate peripancreatic inflammatory stranding consistent with pancreatitis. Pancreas enhances uniformly and there is no peripancreatic fluid collection at this time. Interval placement of CBD stent with persistent intra and extra hepatic ductal dilatation. Focal adynamic ileus in the proximal jejunum secondary to the peripancreatic inflammatory changes S/P ERCP (10/18) --> A previously placed ampulla stent was seen extending from the orifice, removed by snare. 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 Sphincterotomy done. Ductal sweep with balloon and irrigation removing multiple variable size stones, sludge and debris. Normal inclusion cholangiogram afterward Repeat CT abdomen and pelvis (10/19) --> Consistent with pancreatitis, new dilatation in the distal esophagus, stomach, and proximal small bowel, contrast is seen to reach the colon which could be asymmetric ileus, some degree of obstruction cannot be excluded. Pneumobilia, previously seen biliary duct stent has been removed, CBD is dilated measuring 1.8 cm. 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 Has been started on TPN- GJ placement today by IR. Has been having BMs for the past few days, however abdomen has remained distended. (10/29) Pt S/P GJ tube placement by IR yesterday, currently J tube is to gravity , discussed with RN will put G tube to suction. Abdomen distended and semi-firm. Pt has had stool today, currently has rectal bag, also had BM yesterday. Pt denies nausea, vomiting. Will try trickle feeds through J tube, G tube to suction. Goal to increase TF and wean off of TPN. (10/30) Pt states he feels well today. TF running at 10 mL/hr through J tube, G tube to gravity. Denies nausea, vomiting, abdominal pain. No BM yet today. Abdomen distended but soft. Will increase TF, once reaches goal decrease TPN by half and then discontinue when current supplies are depleted (10/31) TF turned up to 20 mL/hr through J tube last night per RN, she states no high residuals. Pt with G tube to nieto bag with small amount of green drainage. Pt has rectal tube to Nieto bag with small amount of liquid stool. Plan: Increase Vital 1.5 to goal of 65 mL/hr as tolerated Once TF At goal decrease TPN by half and wean off G tube to gravity Continue Reglan Monitor stool count Further recommendations to follow Pt has been seen and examined by myself and Dr. Villarreal and this note is written on his behalf <Alley Ruiz - Last Filed: 10/31/17 13:21> (1) Cholangitis Status: Acute Code(s): K83.0 - Cholangitis (2) Elevated LFTs Status: Acute Code(s): R94.5 - Abnormal results of liver function studies (3) Pancreatitis Status: Acute Code(s): K85.90 - Acute pancreatitis without necrosis or infection, unspecified - Plan Patient was seen and examined, agree with above note, increase in feeding which she seems to be tolerating it better, continue supportive care for now and will try to wean TPN <Kristine Villarreal - Last Filed: 10/31/17 18:44>
[2017-10-31] MEDS: Pantoprazole Inj 40 MG Vial IV.PUSH SCH (14:38)
--- NOTE | 2017-10-31 15:32 | P.PNIM ---
Subjective Interval history: Slight decrease in lipase today. Given this patient's history of recurrent pancreatitis and inflammatory etiology is suspected. His diarrhea may be a part of this inflammatory etiology. Autoimmunity or allergy is not historically known to have been a problem in this patient. Bigeminy is present on telemetry today, patient is asymptomatic. Physical Exam Vital signs: Vital Signs 10/30/17 16:00 10/30/17 20:00 10/30/17 20:25 Temperature 97.1 F L 97.8 F Pulse Rate 95 H 97 H 94 H Respiratory Rate 19 19 Blood Pressure 140/67 128/58 L Pulse Oximetry 95 95 10/31/17 00:00 10/31/17 04:00 10/31/17 08:43 Temperature 97.7 F 97.7 F 97.6 F Pulse Rate 98 H 88 93 H Respiratory Rate 18 18 16 Blood Pressure 102/56 L 124/57 L 131/64 Pulse Oximetry 95 94 L 96 10/31/17 12:51 Temperature 98.5 F Pulse Rate 95 H Respiratory Rate 16 Blood Pressure 149/59 H Pulse Oximetry 96 Intake & Output 10/30/17 10/31/17 10/31/17 18:59 06:59 18:59 Intake Total 350 / 350 1100 / 1100 Output Total 3000 / 3000 350 / 350 Balance -2650 / -2650 750 / 750 Weight 97.7 kg Intake: IV 350 / 350 1100 / 1100 D5W Inj 1,000 ML @ 84 mls/hr IV 1000 / 1000 .CONT .[id number] [facility] Rx#:[id number] Azithromycin Inj 500 MG In NS 250 / 250 Inj 250 ML @ 250 mls/hr IV.SIG Q24H [facility] Rx#:[id number] Zosyn 3.375 GM Premix 50 ML @ 100 / 100 100 / 100 100 mls/hr IV.SIG Q6H [facility] Rx#: [id number] Oral 0 / 0 0 / 0 Output: Urine 3000 / 3000 Gastric Drainage 350 / 350 Gastrojejunostomy Tube 350 / 350 Other: Date of Last Bowel Movement 10/29/17 10/31/17 # Bowel Movements 0 Narrative: GENERAL: NAD, A&Ox3 HEAD: Normocephalic. NECK: Supple, trachea midline. No lymphadenopathy. EYES: No scleral icterus. No injection or drainage. CARDIOVASCULAR: Regular rate and rhythm without murmurs, gallops, or rubs. RESPIRATORY: Breath sounds equal bilaterally. No accessory muscle use. GASTROINTESTINAL: Abdomen soft, non-tender, nondistended. MUSCULOSKELETAL: No cyanosis, or edema. SKIN: Warm and dry. NEURO: No focal neurological deficits. - Urinary Catheter Management Indwelling Urethral Catheter Cath placed during this visit: yes, but has since been removed by the nurse Reason for continuing: Decision to DC catheter Insertion date: 10/17/17 Insertion time: 17:30 Removal date: 10/25/17 Removal time: 14:38 Condom Cath placed during this visit: no Results - Labs CBC & Chem 7: 10/31/17 05:56 10/31/17 05:56 Laboratory Results - last 24 hr 10/30/17 10/30/17 10/31/17 17:08 20:40 00:42 WBC RBC Hgb Hct MCV MCH MCHC RDW Plt Count MPV Prelim Diff (Auto) Neut % (Auto) Lymph % (Auto) Tyler % (Auto) Eos % (Auto) Baso % (Auto) Neut # (Auto) Lymph # (Auto) Tyler # (Auto) Eos # (Auto) Baso # (Auto) WBC Differential Seg Neuts % (Manual) Band Neuts % (Manual) Lymphocytes % (Manual) Monocytes % (Manual) Eosinophils % (Manual) Metamyelocytes % (Man) Myelocytes % (Man) Abs Neuts (Manual) Differential Comment Platelet Estimate Platelet Morphology Sodium Potassium Chloride Carbon Dioxide Anion Gap BUN Creatinine Estimated GFR POC Glucose 197 H 211 H 223 H Random Glucose Calcium Prot Corrected Calcium Total Bilirubin AST ALT Alkaline Phosphatase Total Protein Albumin Lipase 10/31/17 10/31/17 10/31/17 05:27 05:56 05:56 WBC 9.7 RBC 2.69 L Hgb 10.4 L D Hct 27.9 L MCV 103.6 H MCH 38.5 H MCHC 37.2 H RDW 27.5 H Plt Count 141 L MPV 10.6 Prelim Diff (Auto) Slide review pending Neut % (Auto) 71.7 H Lymph % (Auto) 17.6 Tyler % (Auto) 6.0 Eos % (Auto) 4.5 H Baso % (Auto) 0.2 Neut # (Auto) 6.9 Lymph # (Auto) 1.7 Tyler # (Auto) 0.6 Eos # (Auto) 0.4 Baso # (Auto) 0.0 WBC Differential Manual diff final Seg Neuts % (Manual) 57 Band Neuts % (Manual) 11 H Lymphocytes % (Manual) 19 Monocytes % (Manual) 8 Eosinophils % (Manual) 3 Metamyelocytes % (Man) 1 Myelocytes % (Man) 1 H Abs Neuts (Manual) 6.8 Differential Comment . Platelet Estimate Low L Platelet Morphology Normal Sodium 132 L D Potassium 5.5 H D Chloride 100 D Carbon Dioxide 25.1 Anion Gap 7 BUN 20 H Creatinine 1.17 Estimated GFR 59 L POC Glucose 243 H Random Glucose 408 H D Calcium 6.7 L* D Prot Corrected Calcium 7.4 L* Total Bilirubin 1.1 H AST 38 H ALT 27 Alkaline Phosphatase 94 Total Protein 5.7 L Albumin 1.6 L Lipase 1193 H 10/31/17 12:01 WBC RBC Hgb Hct MCV MCH MCHC RDW Plt Count MPV Prelim Diff (Auto) Neut % (Auto) Lymph % (Auto) Tyler % (Auto) Eos % (Auto) Baso % (Auto) Neut # (Auto) Lymph # (Auto) Tyler # (Auto) Eos # (Auto) Baso # (Auto) WBC Differential Seg Neuts % (Manual) Band Neuts % (Manual) Lymphocytes % (Manual) Monocytes % (Manual) Eosinophils % (Manual) Metamyelocytes % (Man) Myelocytes % (Man) Abs Neuts (Manual) Differential Comment Platelet Estimate Platelet Morphology Sodium Potassium Chloride Carbon Dioxide Anion Gap BUN Creatinine Estimated GFR POC Glucose 243 H Random Glucose Calcium Prot Corrected Calcium Total Bilirubin AST ALT Alkaline Phosphatase Total Protein Albumin Lipase - Procedures ERCP 10/18/2017 IMPRESSIONS: 1. A previously placed ampulla stent was seen extending from the orifice, removed by snare. 2. 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 3. Sphincterotomy done. 4. Ductal sweep with balloon and irrigation removing multiple variable size stones, sludge and debris. 5. Normal inclusion cholangiogram afterward Assessment and Plan - Assessment (1) Pancreatitis Code(s): K85.90 - Acute pancreatitis without necrosis or infection, unspecified Status: Acute (2) Ileus, postoperative Code(s): K91.89 - Other postprocedural complications and disorders of digestive system; K56.7 - Ileus, unspecified Status: Acute - Plan 87 year old male with history of choledocholithiasis and cholangitis status post recent ERCP admitted on 10/[address] A/ P as well as lipase level indicate acute pancreatitis. Course has been complicated by ileus. Pancreatitis is minimally improved today, no significant change. Continue monitoring lipase levels. Tolerating tube feeds thus far. Bigeminy is present patient will continue to be monitored on telemetry and monitor for symptoms. Diarrhea is persistent and probiotics are initiated today. Given potential inflammatory etiology for the patient's diarrhea and for his recurrent pancreatitis trial low-dose steroids will be provided and pancreatic enzymes will continue to be monitored as well as diarrhea. Pancreatitis Chronic diarrhea Persistent elevation lipase Feeding tube placement occurred on 10/28/2017 Continue physical therapy Continue monitoring for normal bowel activity Incentive spirometer GI following Probiotics Low-dose steroids for suspected inflammatory etiology Partial small bowel obstruction Advancing diet cautiously Acute Kidney Injury Hypernatremia Hypokalemia Monitor BUN and creatinine Monitor sodium levels Monitor potassium levels and replace as needed Pneumonia Continue Zosyn and Azithromycin Plan to discontinue Zosyn and azithromycin at 14 days. Continue oxygen as needed Continue duo nebs as needed Anemia Acute on chronic Patient had a transfusion of 2 units packed red blood cells on 10/27/2017 Continue to monitor hemoglobin Atrial fibrillation First-degree AV block Right bundle branch block Currently rate controlled Follow on telemetry DVT prophylaxis SCDs
[2017-10-31] MEDS: SODIUM CHLORIDE IV.SIG SCH ×8 (21:09)
[2017-10-31] MEDS: MULTIVITAMIN IV.SIG SCH ×8 (21:09)
[2017-10-31] MEDS: [UNRECOGNIZED DRUG - OTHER] IV.SIG SCH ×8 (21:09)
[2017-10-31] MEDS: FOLIC ACID IV.SIG SCH ×8 (21:09)
[2017-10-31] MEDS: MethylPREDNISolone Sod Succinate Inj 40 MG/ML Vial IV.PUSH SCH (21:14)
[2017-11-01] MEDS: Dextrose 5% in Water Inj 1,000 ML IV.CONT SCH ×2 (00:17→09:48)
[2017-11-01] MEDS: Insulin NovoLOG Aspart Correctional Sugar Inj SQ SCH ×4 (00:33→18:16)
[2017-11-01] MEDS: Piperacil/Tazo 3.375 GM Premix 50 ML IV.SIG SCH ×4 (00:34→18:17)
[2017-11-01 07:42] LABS: Baso # (Auto) 0.2 th/mm3 (0.0-0.2); Baso % (Auto) 1.6 % (0.0-2.0); Eos # (Auto) 0.1 th/mm3 (0.0-0.4); Eos % (Auto) 0.9 % (0.0-4.0); Hematocrit 24.7 % (39.0-51.0); Lymph # (Auto) 1.7 th/mm3 (1.0-4.8); Lymph % (Auto) 14.3 % (9.0-44.0); Mean Corpuscular HGB Conc 32.5 % (32.0-36.0); Mean Corpuscular Hemoglobin 33.2 pg (27.0-34.0); Mean Platelet Volume 9.8 fL (7.0-11.0); Mono # (Auto) 0.6 th/mm3 (0.0-0.9); Mono % (Auto) 4.9 % (0.0-8.0); Neut # (Auto) 9.3 th/mm3 (1.8-7.7); Neut % (Auto) 78.3 % (16.0-70.0); Platelet Count 177 th/mm3 (150-450); Red Blood Count 2.42 mil/mm3 (4.50-5.90); Red Cell Distribution Width 26.7 % (11.6-17.2); White Blood Count 11.9 th/mm3 (4.0-11.0)
[2017-11-01 08:14] LABS: Alanine Aminotransferase 30 U/L (12-78); Alkaline Phosphatase 111 U/L (45-117); Anion Gap 6 meq/L (5-15); Aspartate Aminotransferase 31 U/L (15-37); Blood Urea Nitrogen 24 mg/dL (7-18); Calcium 8.5 mg/dL (8.5-10.1); Carbon Dioxide 26.1 meq/L (21.0-32.0); Chloride 105 meq/L (98-107); Glomerular Filtration Rate 59 mL/min (>89); Glucose,Random 310 mg/dL (74-106); Lipase 1007 U/L (73-393); Potassium 4.2 meq/L (3.5-5.1); Sodium 137 meq/L (136-145); Total Protein 6.2 g/dL (6.4-8.2)
[2017-11-01 08:31] LABS: Eosinophils 1 % (0-4); Lymphocytes 9 % (9-44); Monocytes 1 % (0-8); Tallied Nucleated RBC 1 (0-0)
[2017-11-01 08:33] LABS: Toxic Granulation 1+
[2017-11-01 08:35] LABS: Platelet Estimate Normal (Normal)
[2017-11-01] MEDS: Azithromycin Inj 500 MG in Sodium Chlor 0.9% Inj 250 ML IV.SIG SCH (09:33)
[2017-11-01] MEDS: Heparin Central Flush 100 UNIT/ML 5 ML Vial IV.FLUSH SCH (09:34)
[2017-11-01] MEDS: MethylPREDNISolone Sod Succinate Inj 40 MG/ML Vial IV.PUSH SCH ×2 (09:36→20:52)
[2017-11-01] MEDS: Senna/Docusate Sodium 8.6/50 MG Tablet PO SCH ×2 (09:36→20:55)
--- NOTE | 2017-11-01 09:54 | P.PNGS ---
Subjective Patient reports: no new complaints (tolerating tf at 25, no abd pain) Physical Exam Vital signs: Vital Signs 10/31/17 12:00 10/31/17 12:51 10/31/17 20:00 Temperature 98.5 F 98.3 F Pulse Rate 95 H 95 H 88 Respiratory Rate 16 16 Blood Pressure 149/59 H 126/64 Pulse Oximetry 96 96 11/01/17 00:00 11/01/17 04:00 Temperature 98.5 F 97.7 F Pulse Rate 105 H 99 H Respiratory Rate 16 16 Blood Pressure 147/97 H 121/57 L Pulse Oximetry 97 94 L Intake & Output 10/31/17 11/01/17 11/01/17 18:59 06:59 18:59 Intake Total 1300 / 1300 2174.1437 / 2174.1437 250 / 250 Output Total 5825 / 5825 300 / 300 Balance -4525 / -4525 2174.1437 / 2174.1437 -50 / -50 Weight 203.4 kg Intake: IV 1300 / 1300 2174.1437 / 2174.1437 250 / 250 D5W Inj 1,000 ML @ 84 mls/hr IV 1000 / 1000 .CONT .[id number] [facility] Rx#:[id number] Azithromycin Inj 500 MG In NS 250 / 250 Inj 250 ML @ 250 mls/hr IV.SIG Q24H [facility] Rx#:[id number] Intralipid 20% Inj 250 ML @ 31. 250 / 250 25 mls/hr IV.SIG DAILY@1999 [facility] Rx#:[id number] MVI-12 Inj 10 ML Folvite Inj 1 2074.1437 / 2074.1437 MG Sodium Chloride 23.4% Inj 11 MEQ Sodium Acetate Inj 59 MEQ Magnesium Chloride Inj 10 MEQ KCl Inj 40 MEQ Calcium Chloride Inj 9 MEQ In TPN Fluid 2 Liter 2,000 ML @ 83 mls/hr IV.SIG DAILY@1999 [facility] Rx#:[id number] Zosyn 3.375 GM Premix 50 ML @ 50 / 50 100 / 100 100 mls/hr IV.SIG Q6H [facility] Rx#: [id number] Oral 0 / 0 Other 0 / 0 Output: Urine 3000 / 3000 300 / 300 Stool 300 / 300 Urine Amount (Catheter) 217 / 2175 Condom 187 / 187 Indwelling Urethral Catheter 300 / 300 Gastric Drainage 350 / 350 Gastrojejunostomy Tube 350 / 350 Other: # Voids 1 # Incontinent Voids 2 # Urine Diapers 2 Date of Last Bowel Movement 10/31/17 11/01/17 # Bowel Movements 0 - Routine Abdominal Exam Present: soft (g tube scant dry blood, soft minimal distension) - Urinary Catheter Management Indwelling Urethral Catheter Cath placed during this visit: yes, but has since been removed by the nurse Reason for continuing: Decision to DC catheter Insertion date: 10/17/17 Insertion time: 17:30 Removal date: 10/25/17 Removal time: 14:38 Condom Cath placed during this visit: no Assessment and Plan - Assessment (1) Pancreatitis Code(s): K85.90 - Acute pancreatitis without necrosis or infection, unspecified Status: Acute - Plan pancreatits, ileus- still with distension SBFT shows partial sbo, pancreatitis, patient appears improving but still moving slow +bowel sounds still with distension but less, stool output s/p G j tube by IR PLAN, pancreatitis appears resolving- lipase 1007, non operative from surgical stand point abdominal exams labs j port to 25cc TF, wean tpn as tolerating tf, increase tf as tolerated recommend discuss with dietitian for blood sugar mngt, will follow peripherally over the weekend encourage oob to chair
[2017-11-01] MEDS: Pantoprazole Inj 40 MG Vial IV.PUSH SCH (13:07)
--- NOTE | 2017-11-01 13:49 | P.PNIM ---
Subjective Interval history: Tolerating tube feeds thus far. Advancement has occurred through time and rate is 30 mL/h at this point. Rectal bag and urinary catheter have been removed. Pancreatic enzymes show improvement. Physical Exam Vital signs: Vital Signs 10/31/17 20:00 11/01/17 00:00 11/01/17 04:00 Temperature 98.3 F 98.5 F 97.7 F Pulse Rate 88 105 H 99 H Respiratory Rate 16 16 16 Blood Pressure 126/64 147/97 H 121/57 L Pulse Oximetry 96 97 94 L 11/01/17 08:00 Temperature 98.7 F Pulse Rate 93 H Respiratory Rate 16 Blood Pressure 132/62 Pulse Oximetry 95 Intake & Output 10/31/17 11/01/17 11/01/17 18:59 06:59 18:59 Intake Total 1300 / 1300 2174.1437 / 2174.1437 1300 / 1300 Output Total 5825 / 5825 300 / 300 Balance -4525 / -4525 2174.1437 / 2174.1437 1000 / 1000 Weight 203.4 kg Intake: IV 1300 / 1300 2174.1437 / 2174.1437 1300 / 1300 D5W Inj 1,000 ML @ 84 mls/hr IV 1000 / 1000 1000 / 1000 .CONT .[id number] [facility] Rx#:[id number] Azithromycin Inj 500 MG In NS 250 / 250 Inj 250 ML @ 250 mls/hr IV.SIG Q24H [facility] Rx#:[id number] Intralipid 20% Inj 250 ML @ 31. 250 / 250 25 mls/hr IV.SIG DAILY@1999 [facility] Rx#:[id number] MVI-12 Inj 10 ML Folvite Inj 1 4.1437 / 2074.1437 MG Sodium Chloride 23.4% Inj 11 MEQ Sodium Acetate Inj 59 MEQ Magnesium Chloride Inj 10 MEQ KCl Inj 40 MEQ Calcium Chloride Inj 9 MEQ In TPN Fluid 2 Liter 2,000 ML @ 83 mls/hr IV.SIG DAILY@1999 [facility] Rx#:[id number] Zosyn 3.375 GM Premix 50 ML @ 50 / 50 100 / 100 50 / 50 100 mls/hr IV.SIG Q6H [facility] Rx#: [id number] Oral 0 / 0 Other 0 / 0 Output: Urine 3000 / 3000 300 / 300 Stool 300 / 300 Urine Amount (Catheter) 217 / 2175 Condom 1874 / 1874 Indwelling Urethral Catheter 300 / 300 Gastric Drainage 350 / 350 Gastrojejunostomy Tube 350 / 350 Other: # Voids 1 # Incontinent Voids 2 # Urine Diapers 2 Date of Last Bowel Movement 10/31/17 11/01/17 11/01/17 # Bowel Movements 0 Narrative: GENERAL: NAD, A&Ox3 HEAD: Normocephalic. NECK: Supple, trachea midline. No lymphadenopathy. EYES: No scleral icterus. No injection or drainage. CARDIOVASCULAR: Regular rate and rhythm without murmurs, gallops, or rubs. RESPIRATORY: Breath sounds equal bilaterally. No accessory muscle use. GASTROINTESTINAL: Abdomen soft, non-tender, nondistended. Tube feed axis present in the anterior abdomen. MUSCULOSKELETAL: No cyanosis, or edema. SKIN: Warm and dry. NEURO: No focal neurological deficits. - Urinary Catheter Management Indwelling Urethral Catheter Cath placed during this visit: yes, but has since been removed by the nurse Reason for continuing: Decision to DC catheter Insertion date: 10/17/17 Insertion time: 17:30 Removal date: 10/25/17 Removal time: 14:38 Condom Cath placed during this visit: no Results - Labs CBC & Chem 7: 11/01/17 06:45 11/01/17 06:45 Laboratory Results - last 24 hr 10/31/17 11/01/17 11/01/17 17:06 00:24 05:07 WBC RBC Hgb Hct MCV MCH MCHC RDW Plt Count MPV Prelim Diff (Auto) Neut % (Auto) Lymph % (Auto) Hale % (Auto) Eos % (Auto) Baso % (Auto) Neut # (Auto) Lymph # (Auto) Hale # (Auto) Eos # (Auto) Baso # (Auto) WBC Differential Seg Neuts % (Manual) Band Neuts % (Manual) Lymphocytes % (Manual) Monocytes % (Manual) Eosinophils % (Manual) Abs Neuts (Manual) Nucleated RBCs/100 WBC Differential Comment Toxic Granulation Platelet Estimate Platelet Morphology Keratocytes Sodium Potassium Chloride Carbon Dioxide Anion Gap BUN Creatinine Estimated GFR POC Glucose 185 H 236 H 325 H Random Glucose Calcium Total Bilirubin AST ALT Alkaline Phosphatase Total Protein Albumin Lipase 11/01/17 11/01/17 11/01/17 06:45 06:45 12:00 WBC 11.9 H RBC 2.42 L Hgb 8.0 L D Hct 24.7 L MCV 102.0 H MCH 33.2 MCHC 32.5 RDW 26.7 H Plt Count 177 MPV 9.8 Prelim Diff (Auto) Slide review pending Neut % (Auto) 78.3 H Lymph % (Auto) 14.3 Hale % (Auto) 4.9 Eos % (Auto) 0.9 Baso % (Auto) 1.6 Neut # (Auto) 9.3 H Lymph # (Auto) 1.7 Hale # (Auto) 0.6 Eos # (Auto) 0.1 Baso # (Auto) 0.2 WBC Differential Manual diff final Seg Neuts % (Manual) 68 Band Neuts % (Manual) 21 H Lymphocytes % (Manual) 9 Monocytes % (Manual) 1 Eosinophils % (Manual) 1 Abs Neuts (Manual) 10.6 H Nucleated RBCs/100 WBC 1 H Differential Comment . Toxic Granulation 1+ H Platelet Estimate Normal Platelet Morphology Enlarged H Keratocytes Occ H Sodium 137 Potassium 4.2 D Chloride 105 Carbon Dioxide 26.1 Anion Gap 6 BUN 24 H Creatinine 1.18 Estimated GFR 59 L POC Glucose 250 H Random Glucose 310 H Calcium 8.5 D Total Bilirubin 0.9 AST 31 ALT 30 Alkaline Phosphatase 111 Total Protein 6.2 L Albumin 2.0 L Lipase 1007 H - Procedures ERCP 10/18/2017 IMPRESSIONS: 1. A previously placed ampulla stent was seen extending from the orifice, removed by snare. 2. 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 3. Sphincterotomy done. 4. Ductal sweep with balloon and irrigation removing multiple variable size stones, sludge and debris. 5. Normal inclusion cholangiogram afterward Assessment and Plan - Assessment (1) Pancreatitis Code(s): K85.90 - Acute pancreatitis without necrosis or infection, unspecified Status: Acute (2) Ileus, postoperative Code(s): K91.89 - Other postprocedural complications and disorders of digestive system; K56.7 - Ileus, unspecified Status: Acute - Plan 87 year old male with history of choledocholithiasis and cholangitis status post recent ERCP admitted on 10/17 with progressive abdominal pain. CT A/ P as well as lipase level indicate acute pancreatitis. Course has been complicated by ileus. Pancreatic enzymes are showing improvement through time. Steroids will continue for 2 more days. Probiotics ongoing. Hernandez catheter and rectal bag removed. PPM placed on hold. Continue advancing tube feeds treatments as tolerated. Continue monitoring pancreatic enzymes. Pancreatitis Chronic diarrhea Persistent elevation lipase Feeding tube placement occurred on 10/28/2017 Continue physical therapy Continue monitoring for normal bowel activity Incentive spirometer GI following Probiotics Low-dose steroids for suspected inflammatory etiology to discontinue on 2017 Partial small bowel obstruction Advancing diet cautiously Acute Kidney Injury Hypernatremia Hypokalemia Monitor BUN and creatinine Monitor sodium levels Monitor potassium levels and replace as needed Pneumonia Continue Zosyn and Azithromycin Plan to discontinue Zosyn and azithromycin at 14 days. Continue oxygen as needed Continue duo nebs as needed Anemia Acute on chronic Patient had a transfusion of 2 units packed red blood cells on 10/27/2017 Continue to monitor hemoglobin Atrial fibrillation First-degree AV block Right bundle branch block Currently rate controlled Follow on telemetry DVT prophylaxis SCDs
--- NOTE | 2017-11-01 16:31 | P.DIET ---
Nutritional Evaluation Type of nutrition evaluation: follow-up Nutrition consult regarding: TPN/PPN Nutrition screening: [facility] [place] ( TF recs 10/30) Objective - Diagnosis Acute Pancreatitis, Recent ERCP - Objective % IBW: 118 (IBW = 178#) Body Weight Used for Calculations: Actual (95.7 kg) Energy Needs - Lower Range (kCal/kg): 25 Energy Needs - Upper Range (kCal/kg): 30 Lower Limit kCal/kg (kCals): 2,393 Upper Limit kCal/kg (kCals): 2,871 Lower Limit Protein Factor (Grams per Kg): 1.0 Upper Limit Protein Factor (Grams per Kg): 1.5 Lower Protein Needs (Protein): 96 Upper Protein Needs (Protein): 144 Dietitian Reviewed in Medical Record: Current diet, Curent medications, Intake & Output, Labs, Medical history, TPN/PPN Diet Order: NPO Feeding - Current Tube Feeding Tube Feeding Product: Vital 1.5 Tube Feeding Rate: 30 (mls/hr) - Current TPN/PPN Current PPN: Clinimix 4.25/5 (Renal Formula) Current TPN/PPN Rate (ml/hr): 83 Amino Acid and Dextrose Current kCals Provided: 680 Amino Acid and Dextrose Current Protein Provided: 85 Current Lipid Concentration: 20% Current Lipids Rate: 250 mls daily over 8 hours Current kCal Provided by TPN/PPN: 1,180 Assessment Assessment: Pt continues at high nutrition risk r/t diagnosis and need for nutrition support. Pt is receiving TPN/lipids as above and Tf via G/j tube. To meet needs with TFing, recommend Vital 1.5 @ 65 mls/hr to provide 2340 kcals, 105 gms protein and 1192 mls of free water. To meet needs with TPN, recommend Clinimix 5 /25 @ 83 mls/hr with same Lipids to provide a total of 2680 kcals and 100 gms protein. Hyperglycemia noted. Request weekly TG in setting of TPN and pancreatitis. Wt changes noted. Recommendations: For TPN: Clinimix 5/25 @ 83 mls/hr Wean TPN as Tf rate increases For TF: Vital 1.5 @ 65 mls/hr goal Dietitian to Monitor: Lab values, Glucose level, Intake & Output, Diet tolerance , Tube feeding tolerance, TPN/PPN tolerance, Weight change, PO Intake, Diet advancement, Medical course
[2017-11-01] MEDS: Nystatin Liq 500,000 UNIT/5 ML UDC SWISH-SPIT SCH ×3 (16:39→20:50)
--- NOTE | 2017-11-01 17:27 | P.PNGI ---
Subjective Interval history: Pt is resting in bed, doing good, tolerating TF okay, this is at 25 ml/hr, plans to increase it. Having BMs <Jaquelin Kapadia - Last Filed: 11/01/17 17:28> Physical Exam Vital signs: Vital Signs 10/31/17 20:00 11/01/17 00:00 11/01/17 04:00 Temperature 98.3 F 98.5 F 97.7 F Pulse Rate 88 105 H 99 H Respiratory Rate 16 16 16 Blood Pressure 126/64 147/97 H 121/57 L Pulse Oximetry 96 97 94 L 11/01/17 08:00 11/01/17 12:00 11/01/17 16:00 Temperature 98.7 F 98.2 F 98.5 F Pulse Rate 93 H 90 92 H Respiratory Rate 16 17 16 Blood Pressure 132/62 137/70 131/62 Pulse Oximetry 95 99 Intake & Output 10/31/17 11/01/17 11/01/17 18:59 06:59 18:59 Intake Total 1300 / 1300 2174.1437 / 2174.1437 1350 / 1350 Output Total 5825 / 5825 300 / 300 Balance -4525 / -4525 2174.1437 / 2174.1437 1050 / 1050 Weight 203.4 kg Intake: IV 1300 / 1300 2174.1437 / 2174.1437 1350 / 1350 D5W Inj 1,000 ML @ 84 mls/hr IV 1000 / 1000 1000 / 1000 .CONT .[id number] [facility] Rx#:[id number] Azithromycin Inj 500 MG In NS 250 / 250 Inj 250 ML @ 250 mls/hr IV.SIG Q24H [facility] Rx#:[id number] Intralipid 20% Inj 250 ML @ 31. 250 / 250 25 mls/hr IV.SIG DAILY@1999 [facility] Rx#:[id number] MVI-12 Inj 10 ML Folvite Inj 1 4.1437 / 2074.1437 MG Sodium Chloride 23.4% Inj 11 MEQ Sodium Acetate Inj 59 MEQ Magnesium Chloride Inj 10 MEQ KCl Inj 40 MEQ Calcium Chloride Inj 9 MEQ In TPN Fluid 2 Liter 2,000 ML @ 83 mls/hr IV.SIG DAILY@1999 [facility] Rx#:[id number] Zosyn 3.375 GM Premix 50 ML @ 50 / 50 100 / 100 100 / 100 100 mls/hr IV.SIG Q6H [facility] Rx#: [id number] Oral 0 / 0 Other 0 / 0 Output: Urine 3000 / 3000 300 / 300 Stool 300 / 300 Urine Amount (Catheter) 2174 / 2174 Condom 1874 / 1874 Indwelling Urethral Catheter 300 / 300 Gastric Drainage 350 / 350 Gastrojejunostomy Tube 350 / 350 Other: # Voids 1 # Incontinent Voids 2 # Urine Diapers 2 Date of Last Bowel Movement 10/31/17 11/01/17 11/01/17 # Bowel Movements 0 1 - Constitutional no acute distress - Routine HEENT Exam Head: Present: normocephalic - Routine Neck Exam Present: supple - Routine Cardiovascular Exam Present: RRR - Routine Abdominal Exam Present: soft, normoactive bowel sounds Comments: Gj tube - Routine Skin Exam Present: intact, dry. Absent: jaundice - Urinary Catheter Management Indwelling Urethral Catheter Cath placed during this visit: yes, but has since been removed by the nurse Reason for continuing: Decision to DC catheter Insertion date: 10/17/17 Insertion time: 17:30 Removal date: 10/25/17 Removal time: 14:38 Condom Cath placed during this visit: no <Jaquelin Kapadia - Last Filed: 11/01/17 17:28> Vital signs: Vital Signs 10/31/17 20:00 11/01/17 00:00 11/01/17 04:00 Temperature 98.3 F 98.5 F 97.7 F Pulse Rate 88 105 H 99 H Respiratory Rate 16 16 16 Blood Pressure 126/64 147/97 H 121/57 L Pulse Oximetry 96 97 94 L 11/01/17 08:00 11/01/17 12:00 11/01/17 16:00 Temperature 98.7 F 98.2 F 98.5 F Pulse Rate 93 H 90 92 H Respiratory Rate 16 17 16 Blood Pressure 132/62 137/70 131/62 Pulse Oximetry 95 99 Intake & Output 10/31/17 11/01/17 11/01/17 18:59 06:59 18:59 Intake Total 1300 / 1300 2174.1437 / 2174.1437 1350 / 1350 Output Total 5825 / 5825 300 / 300 Balance -4525 / -4525 2174.1437 / 2174.1437 1050 / 1050 Weight 203.4 kg Intake: IV 1300 / 1300 2174.1437 / 2174.1437 1350 / 1350 D5W Inj 1,000 ML @ 84 mls/hr IV 1000 / 1000 1000 / 1000 .CONT .[id number] [facility] Rx#:[id number] Azithromycin Inj 500 MG In NS 250 / 250 Inj 250 ML @ 250 mls/hr IV.SIG Q24H [facility] Rx#:[id number] Intralipid 20% Inj 250 ML @ 31. 250 / 250 25 mls/hr IV.SIG DAILY@1999 [facility] Rx#:[id number] MVI-12 Inj 10 ML Folvite Inj 1 2074.1437 / 2074.1437 MG Sodium Chloride 23.4% Inj 11 MEQ Sodium Acetate Inj 59 MEQ Magnesium Chloride Inj 10 MEQ KCl Inj 40 MEQ Calcium Chloride Inj 9 MEQ In TPN Fluid 2 Liter 2,000 ML @ 83 mls/hr IV.SIG DAILY@1999 [facility] Rx#:[id number] Zosyn 3.375 GM Premix 50 ML @ 50 / 50 100 / 100 100 / 100 100 mls/hr IV.SIG Q6H [facility] Rx#: [id number] Oral 0 / 0 Other 0 / 0 Output: Urine 3000 / 3000 300 / 300 Stool 300 / 300 Urine Amount (Catheter) 2175 / 2175 Condom 1875 / 1875 Indwelling Urethral Catheter 300 / 300 Gastric Drainage 350 / 350 Gastrojejunostomy Tube 350 / 350 Other: # Voids 1 5 # Incontinent Voids 2 # Urine Diapers 2 Date of Last Bowel Movement 10/31/17 11/01/17 11/01/17 # Bowel Movements 0 1 # Incontinent Bowel Movements 2 - Urinary Catheter Management Indwelling Urethral Catheter Cath placed during this visit: no Condom Cath placed during this visit: no <Kristine Villarreal - Last Filed: 11/01/17 18:26> Results - Labs CBC & Chem 7: 11/01/17 06:45 11/01/17 06:45 Laboratory Results - last 24 hr 11/01/17 11/01/17 11/01/17 00:24 05:07 06:45 WBC 11.9 H RBC 2.42 L Hgb 8.0 L D Hct 24.7 L MCV 102.0 H MCH 33.2 MCHC 32.5 RDW 26.7 H Plt Count 177 MPV 9.8 Prelim Diff (Auto) Slide review pending Neut % (Auto) 78.3 H Lymph % (Auto) 14.3 [place] % (Auto) 4.9 Eos % (Auto) 0.9 Baso % (Auto) 1.6 Neut # (Auto) 9.3 H Lymph # (Auto) 1.7 [place] # (Auto) 0.6 Eos # (Auto) 0.1 Baso # (Auto) 0.2 WBC Differential Manual diff final Seg Neuts % (Manual) 68 Band Neuts % (Manual) 21 H Lymphocytes % (Manual) 9 Monocytes % (Manual) 1 Eosinophils % (Manual) 1 Abs Neuts (Manual) 10.6 H Nucleated RBCs/100 WBC 1 H Differential Comment . Toxic Granulation 1+ H Platelet Estimate Normal Platelet Morphology Enlarged H Keratocytes Occ H Sodium Potassium Chloride Carbon Dioxide Anion Gap BUN Creatinine Estimated GFR POC Glucose 236 H 325 H Random Glucose Calcium Total Bilirubin AST ALT Alkaline Phosphatase Total Protein Albumin Lipase 11/01/17 11/01/17 06:45 12:00 WBC RBC Hgb Hct MCV MCH MCHC RDW Plt Count MPV Prelim Diff (Auto) Neut % (Auto) Lymph % (Auto) [place] % (Auto) Eos % (Auto) Baso % (Auto) Neut # (Auto) Lymph # (Auto) [place] # (Auto) Eos # (Auto) Baso # (Auto) WBC Differential Seg Neuts % (Manual) Band Neuts % (Manual) Lymphocytes % (Manual) Monocytes % (Manual) Eosinophils % (Manual) Abs Neuts (Manual) Nucleated RBCs/100 WBC Differential Comment Toxic Granulation Platelet Estimate Platelet Morphology Keratocytes Sodium 137 Potassium 4.2 D Chloride 105 Carbon Dioxide 26.1 Anion Gap 6 BUN 24 H Creatinine 1.18 Estimated GFR 59 L POC Glucose 250 H Random Glucose 310 H Calcium 8.5 D Total Bilirubin 0.9 AST 31 ALT 30 Alkaline Phosphatase 111 Total Protein 6.2 L Albumin 2.0 L Lipase 1007 H - Procedures ERCP 10/18/2017 IMPRESSIONS: 1. A previously placed ampulla stent was seen extending from the orifice, removed by snare. 2. 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 3. Sphincterotomy done. 4. Ductal sweep with balloon and irrigation removing multiple variable size stones, sludge and debris. 5. Normal inclusion cholangiogram afterward <Jaquelin Kapadia - Last Filed: 11/01/17 17:28> - Labs CBC & Chem 7: 11/01/17 06:45 11/01/17 06:45 Laboratory Results - last 24 hr 11/01/17 11/01/17 11/01/17 00:24 05:07 06:45 WBC 11.9 H RBC 2.42 L Hgb 8.0 L D Hct 24.7 L MCV 102.0 H MCH 33.2 MCHC 32.5 RDW 26.7 H Plt Count 177 MPV 9.8 Prelim Diff (Auto) Slide review pending Neut % (Auto) 78.3 H Lymph % (Auto) 14.3 [place] % (Auto) 4.9 Eos % (Auto) 0.9 Baso % (Auto) 1.6 Neut # (Auto) 9.3 H Lymph # (Auto) 1.7 [place] # (Auto) 0.6 Eos # (Auto) 0.1 Baso # (Auto) 0.2 WBC Differential Manual diff final Seg Neuts % (Manual) 68 Band Neuts % (Manual) 21 H Lymphocytes % (Manual) 9 Monocytes % (Manual) 1 Eosinophils % (Manual) 1 Abs Neuts (Manual) 10.6 H Nucleated RBCs/100 WBC 1 H Differential Comment . Toxic Granulation 1+ H Platelet Estimate Normal Platelet Morphology Enlarged H Keratocytes Occ H Sodium Potassium Chloride Carbon Dioxide Anion Gap BUN Creatinine Estimated GFR POC Glucose 236 H 325 H Random Glucose Calcium Total Bilirubin AST ALT Alkaline Phosphatase Total Protein Albumin Lipase 11/01/17 11/01/17 11/01/17 06:45 12:00 17:32 WBC RBC Hgb Hct MCV MCH MCHC RDW Plt Count MPV Prelim Diff (Auto) Neut % (Auto) Lymph % (Auto) [place] % (Auto) Eos % (Auto) Baso % (Auto) Neut # (Auto) Lymph # (Auto) [place] # (Auto) Eos # (Auto) Baso # (Auto) WBC Differential Seg Neuts % (Manual) Band Neuts % (Manual) Lymphocytes % (Manual) Monocytes % (Manual) Eosinophils % (Manual) Abs Neuts (Manual) Nucleated RBCs/100 WBC Differential Comment Toxic Granulation Platelet Estimate Platelet Morphology Keratocytes Sodium 137 Potassium 4.2 D Chloride 105 Carbon Dioxide 26.1 Anion Gap 6 BUN 24 H Creatinine 1.18 Estimated GFR 59 L POC Glucose 250 H 263 H Random Glucose 310 H Calcium 8.5 D Total Bilirubin 0.9 AST 31 ALT 30 Alkaline Phosphatase 111 Total Protein 6.2 L Albumin 2.0 L Lipase 1007 H <Kristine Villarreal - Last Filed: 11/01/17 18:26> Assessment and Plan (1) Cholangitis Status: Acute Code(s): K83.0 - Cholangitis (2) Elevated LFTs Status: Acute Code(s): R94.5 - Abnormal results of liver function studies (3) Pancreatitis Status: Acute Code(s): K85.90 - Acute pancreatitis without necrosis or infection, unspecified - Plan - Elevated LFTs and pancreatitis with recent ERCP with findings of biliary sludge and bile duct dilatation S/P balloon sweep and plastic stent placement on 10/11- Pt with history of choledocholithiasis and cholangitis. History of cholecystectomy. Complaining of: upper abdominal pain that began at 9pm last night after dinner at 8pm, constant, described as "hunger pains". Denies associated fever, chills, nausea, vomiting. Denies history of pancreatitis. Denies ETOH. CT abdomen and pelvis W IV contrast (10/17) Moderate peripancreatic inflammatory stranding consistent with pancreatitis. Pancreas enhances uniformly and there is no peripancreatic fluid collection at this time. Interval placement of CBD stent with persistent intra and extra hepatic ductal dilatation. Focal adynamic ileus in the proximal jejunum secondary to the peripancreatic inflammatory changes S/P ERCP (10/18) --> A previously placed ampulla stent was seen extending from the orifice, removed by snare. 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 Sphincterotomy done. Ductal sweep with balloon and irrigation removing multiple variable size stones, sludge and debris. Normal inclusion cholangiogram afterward Repeat CT abdomen and pelvis (10/19) --> Consistent with pancreatitis, new dilatation in the distal esophagus, stomach, and proximal small bowel, contrast is seen to reach the colon which could be asymmetric ileus, some degree of obstruction cannot be excluded. Pneumobilia, previously seen biliary duct stent has been removed, CBD is dilated measuring 1.8 cm. 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 Has been started on TPN- GJ placement today by IR. Has been having BMs for the past few days, however abdomen has remained distended. (10/29) Pt S/P GJ tube placement by IR yesterday, currently J tube is to gravity , discussed with RN will put G tube to suction. Abdomen distended and semi-firm. Pt has had stool today, currently has rectal bag, also had BM yesterday. Pt denies nausea, vomiting. Will try trickle feeds through J tube, G tube to suction. Goal to increase TF and wean off of TPN. (10/30) Pt states he feels well today. TF running at 10 mL/hr through J tube, G tube to gravity. Denies nausea, vomiting, abdominal pain. No BM yet today. Abdomen distended but soft. Will increase TF, once reaches goal decrease TPN by half and then discontinue when current supplies are depleted (10/31) TF turned up to 20 mL/hr through J tube last night per RN, she states no high residuals. Pt with G tube to nieto bag with small amount of green drainage. Pt has rectal tube to Nieto bag with small amount of liquid stool. (11/01/17) Tolerating TF okay, no residuals, having BMs Lipase today 1007 Plan: Increase Vital 1.5 to goal of 65 mL/hr as tolerated Wean off TPN Continue Reglan Monitor stool count lipase in the am Pt has been seen and examined by myself and Dr. 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
[2017-11-01] MEDS: Temazepam 15 MG Capsule PO PRN (20:52)
[2017-11-01] MEDS: FOLIC ACID IV.SIG SCH ×8 (20:54)
[2017-11-01] MEDS: MULTIVITAMIN IV.SIG SCH ×8 (20:54)
[2017-11-01] MEDS: [UNRECOGNIZED DRUG - OTHER] IV.SIG SCH ×8 (20:54)
[2017-11-01] MEDS: SODIUM CHLORIDE IV.SIG SCH ×8 (20:54)
[2017-11-02] MEDS: Piperacil/Tazo 3.375 GM Premix 50 ML IV.SIG SCH ×5 (01:13→18:10)
[2017-11-02] MEDS: Insulin NovoLOG Aspart Correctional Sugar Inj SQ SCH ×4 (01:13→18:10)
[2017-11-02 05:51] LABS: Baso % (Auto) 0.2 % (0.0-2.0); Eos % (Auto) 0.1 % (0.0-4.0); Hematocrit 23.9 % (39.0-51.0); Hemoglobin 7.7 gm/dL (13.0-17.0); Lymph # (Auto) 1.8 th/mm3 (1.0-4.8); Lymph % (Auto) 16.2 % (9.0-44.0); Mean Corpuscular HGB Conc 32.3 % (32.0-36.0); Mean Corpuscular Volume 105.3 fL (80.0-100.0); Mean Platelet Volume 9.8 fL (7.0-11.0); Mono # (Auto) 0.5 th/mm3 (0.0-0.9); Mono % (Auto) 4.3 % (0.0-8.0); Neut # (Auto) 8.6 th/mm3 (1.8-7.7); Neut % (Auto) 79.2 % (16.0-70.0); Platelet Count 190 th/mm3 (150-450); Red Blood Count 2.27 mil/mm3 (4.50-5.90); Red Cell Distribution Width 26.4 % (11.6-17.2); White Blood Count 10.8 th/mm3 (4.0-11.0)
[2017-11-02 06:32] LABS: Alanine Aminotransferase 32 U/L (12-78); Albumin 1.9 g/dL (3.4-5.0); Alkaline Phosphatase 108 U/L (45-117); Anion Gap 5 meq/L (5-15); Aspartate Aminotransferase 30 U/L (15-37); Blood Urea Nitrogen 28 mg/dL (7-18); Calcium 8.9 mg/dL (8.5-10.1); Carbon Dioxide 24.6 meq/L (21.0-32.0); Chloride 100 meq/L (98-107); Glomerular Filtration Rate 58 mL/min (>89); Lipase 826 U/L (73-393); Sodium 130 meq/L (136-145); Total Protein 6.1 g/dL (6.4-8.2)
[2017-11-02 06:42] LABS: Glucose,Random 604 mg/dL (74-106)
[2017-11-02 08:40] LABS: Lymphocytes 8 % (9-44); Monocytes 4 % (0-8); Myelocytes 1 % (0-0)
[2017-11-02 08:41] LABS: Ovalocytes 1+; Platelet Estimate Normal (Normal); Platelet Morphology Normal (Normal); Toxic Granulation 1+
[2017-11-02] MEDS: Nystatin Liq 500,000 UNIT/5 ML UDC SWISH-SPIT SCH ×4 (09:05→21:30)
[2017-11-02] MEDS: Azithromycin Inj 500 MG in Sodium Chlor 0.9% Inj 250 ML IV.SIG SCH (09:09)
[2017-11-02] MEDS: MethylPREDNISolone Sod Succinate Inj 40 MG/ML Vial IV.PUSH SCH ×2 (09:09→21:30)
[2017-11-02] MEDS: Heparin Central Flush 100 UNIT/ML 5 ML Vial IV.FLUSH SCH (09:10)
[2017-11-02] MEDS: Senna/Docusate Sodium 8.6/50 MG Tablet PO SCH ×2 (09:11→21:30)
--- NOTE | 2017-11-02 13:14 | P.PNGI ---
Subjective Interval history: Pt is resting in bed, accompanied by , tolerating TF okay, no pain, no N/V Physical Exam Vital signs: Vital Signs 11/01/17 16:00 11/01/17 20:00 11/02/17 00:00 Temperature 98.5 F 98.2 F 98.2 F Pulse Rate 92 H 93 H 91 H Respiratory Rate 16 16 16 Blood Pressure 131/62 120/59 L 134/69 Pulse Oximetry 99 95 94 L 11/02/17 04:00 11/02/17 08:00 Temperature 97.8 F 97.3 F L Pulse Rate 89 87 Respiratory Rate 16 14 Blood Pressure 122/60 131/65 Pulse Oximetry 93 L 97 Intake & Output 11/01/17 11/02/17 11/02/17 18:59 06:59 18:59 Intake Total 1350 / 1350 2350.1437 / 2350.1437 250 / 250 Output Total 300 / 300 200 / 200 Balance 1050 / 1050 2150.1437 / 2150.1437 250 / 250 Weight 203.2 kg 91.2 kg Intake: IV 1350 / 1350 2350.1437 / 2350.1437 250 / 250 D5W Inj 1,000 ML @ 84 mls/hr IV 1000 / 1000 .CONT .[id number] [facility] Rx#:[id number] Azithromycin Inj 500 MG In NS 250 / 250 250 / 250 Inj 250 ML @ 250 mls/hr IV.SIG Q24H [facility] Rx#:[id number] Intralipid 20% Inj 250 ML @ 31. 250 / 250 25 mls/hr IV.SIG DAILY@1999 [facility] Rx#:[id number] MVI-12 Inj 10 ML Folvite Inj 1 1999.1437 / 2000.1437 MG Sodium Chloride 23.4% Inj 11 MEQ Sodium Acetate Inj 59 MEQ Magnesium Chloride Inj 10 MEQ KCl Inj 40 MEQ Calcium Chloride Inj 9 MEQ In TPN Fluid 2 Liter 2,000 ML @ 83 mls/hr IV.SIG DAILY@1999 [facility] Rx#:[id number] Zosyn 3.375 GM Premix 50 ML @ 100 / 100 100 / 100 100 mls/hr IV.SIG Q6H [facility] Rx#: [id number] Output: Urine 300 / 300 200 / 200 Other: # Voids 5 # Incontinent Voids 1 Date of Last Bowel Movement 11/01/17 11/01/17 # Bowel Movements 1 # Incontinent Bowel Movements 2 - Constitutional no acute distress - Routine HEENT Exam Head: Present: normocephalic - Routine Respiratory Exam Present: CTA bilaterally - Routine Cardiovascular Exam Present: RRR - Routine Abdominal Exam Present: soft, normoactive bowel sounds. Absent: tenderness, distended Comments: G-J tube - Routine Skin Exam Absent: jaundice - Routine Neurological Exam Present: alert - Urinary Catheter Management Indwelling Urethral Catheter Cath placed during this visit: yes, but has since been removed by the nurse Reason for continuing: Decision to DC catheter Insertion date: 10/17/17 Insertion time: 17:30 Removal date: 10/25/17 Removal time: 14:38 Condom Cath placed during this visit: no Results - Labs CBC & Chem 7: 11/02/17 05:40 11/02/17 06:50 Laboratory Results - last 24 hr 11/01/17 11/02/17 11/02/17 17:32 00:58 05:08 WBC RBC Hgb Hct MCV MCH MCHC RDW Plt Count MPV Prelim Diff (Auto) Neut % (Auto) Lymph % (Auto) [place] % (Auto) Eos % (Auto) Baso % (Auto) Neut # (Auto) Lymph # (Auto) [place] # (Auto) Eos # (Auto) Baso # (Auto) WBC Differential Seg Neuts % (Manual) Band Neuts % (Manual) Lymphocytes % (Manual) Monocytes % (Manual) Basophils % (Manual) Myelocytes % (Man) Abs Neuts (Manual) Differential Comment Toxic Granulation Platelet Estimate Platelet Morphology Ovalocytes Sodium Potassium Chloride Carbon Dioxide Anion Gap BUN Creatinine Estimated GFR POC Glucose 263 H 316 H 330 H Random Glucose Calcium Total Bilirubin AST ALT Alkaline Phosphatase Total Protein Albumin Lipase 11/02/17 11/02/17 11/02/17 05:40 05:40 06:50 WBC 10.8 RBC 2.27 L Hgb 7.7 L Hct 23.9 L MCV 105.3 H MCH 34.0 MCHC 32.3 RDW 26.4 H Plt Count 190 MPV 9.8 Prelim Diff (Auto) Slide review pending Neut % (Auto) 79.2 H Lymph % (Auto) 16.2 [place] % (Auto) 4.3 Eos % (Auto) 0.1 Baso % (Auto) 0.2 Neut # (Auto) 8.6 H Lymph # (Auto) 1.8 [place] # (Auto) 0.5 Eos # (Auto) 0.0 Baso # (Auto) 0.0 WBC Differential Manual diff final Seg Neuts % (Manual) 76 H Band Neuts % (Manual) 10 H Lymphocytes % (Manual) 8 L Monocytes % (Manual) 4 Basophils % (Manual) 1 Myelocytes % (Man) 1 H Abs Neuts (Manual) 9.4 H Differential Comment . Toxic Granulation 1+ H Platelet Estimate Normal Platelet Morphology Normal Ovalocytes 1+ H Sodium 130 L Potassium 6.0 H D Chloride 100 Carbon Dioxide 24.6 Anion Gap 5 BUN 28 H Creatinine 1.20 Estimated GFR 58 L POC Glucose Random Glucose 604 H* D 282 H D Calcium 8.9 Total Bilirubin 0.7 AST 30 ALT 32 Alkaline Phosphatase 108 Total Protein 6.1 L Albumin 1.9 L Lipase 826 H 11/02/17 12:09 WBC RBC Hgb Hct MCV MCH MCHC RDW Plt Count MPV Prelim Diff (Auto) Neut % (Auto) Lymph % (Auto) [place] % (Auto) Eos % (Auto) Baso % (Auto) Neut # (Auto) Lymph # (Auto) [place] # (Auto) Eos # (Auto) Baso # (Auto) WBC Differential Seg Neuts % (Manual) Band Neuts % (Manual) Lymphocytes % (Manual) Monocytes % (Manual) Basophils % (Manual) Myelocytes % (Man) Abs Neuts (Manual) Differential Comment Toxic Granulation Platelet Estimate Platelet Morphology Ovalocytes Sodium Potassium Chloride Carbon Dioxide Anion Gap BUN Creatinine Estimated GFR POC Glucose 318 H Random Glucose Calcium Total Bilirubin AST ALT Alkaline Phosphatase Total Protein Albumin Lipase - Procedures ERCP 10/18/2017 IMPRESSIONS: 1. A previously placed ampulla stent was seen extending from the orifice, removed by snare. 2. 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 3. Sphincterotomy done. 4. Ductal sweep with balloon and irrigation removing multiple variable size stones, sludge and debris. 5. Normal inclusion cholangiogram afterward Assessment and Plan (1) Cholangitis Status: Acute Code(s): K83.0 - Cholangitis (2) Elevated LFTs Status: Acute Code(s): R94.5 - Abnormal results of liver function studies (3) Pancreatitis Status: Acute Code(s): K85.90 - Acute pancreatitis without necrosis or infection, unspecified - Plan Elevated LFTs and pancreatitis with recent ERCP with findings of biliary sludge and bile duct dilatation S/P balloon sweep and plastic stent placement on 10/11- Pt with history of choledocholithiasis and cholangitis. History of cholecystectomy. Complaining of: upper abdominal pain that began at 9pm last night after dinner at 8pm, constant, described as "hunger pains". Denies associated fever, chills, nausea, vomiting. Denies history of pancreatitis. Denies ETOH. CT abdomen and pelvis W IV contrast (10/17) Moderate peripancreatic inflammatory stranding consistent with pancreatitis. Pancreas enhances uniformly and there is no peripancreatic fluid collection at this time. Interval placement of CBD stent with persistent intra and extra hepatic ductal dilatation. Focal adynamic ileus in the proximal jejunum secondary to the peripancreatic inflammatory changes S/P ERCP (10/18) --> A previously placed ampulla stent was seen extending from the orifice, removed by snare. 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 Sphincterotomy done. Ductal sweep with balloon and irrigation removing multiple variable size stones, sludge and debris. Normal inclusion cholangiogram afterward Repeat CT abdomen and pelvis (10/19) --> Consistent with pancreatitis, new dilatation in the distal esophagus, stomach, and proximal small bowel, contrast is seen to reach the colon which could be asymmetric ileus, some degree of obstruction cannot be excluded. Pneumobilia, previously seen biliary duct stent has been removed, CBD is dilated measuring 1.8 cm. 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 Has been started on TPN- GJ placement today by IR. Has been having BMs for the past few days, however abdomen has remained distended. (10/29) Pt S/P GJ tube placement by IR yesterday, currently J tube is to gravity , discussed with RN will put G tube to suction. Abdomen distended and semi-firm. Pt has had stool today, currently has rectal bag, also had BM yesterday. Pt denies nausea, vomiting. Will try trickle feeds through J tube, G tube to suction. Goal to increase TF and wean off of TPN. (10/30) Pt states he feels well today. TF running at 10 mL/hr through J tube, G tube to gravity. Denies nausea, vomiting, abdominal pain. No BM yet today. Abdomen distended but soft. Will increase TF, once reaches goal decrease TPN by half and then discontinue when current supplies are depleted (10/31) TF turned up to 20 mL/hr through J tube last night per RN, she states no high residuals. Pt with G tube to nieto bag with small amount of green drainage. Pt has rectal tube to Nieto bag with small amount of liquid stool. (11/01/17) Tolerating TF okay, no residuals, having BMs Lipase today 1007 (11/02/17) Doing good today, tolerating TF, G to gravity. Lipase trending down today 826, LFTs wnl Plan: Increase Vital 1.5 to goal of 65 mL/hr as tolerated Wean off TPN Continue Reglan Monitor stool count lipase in the am Pt has been seen and examined by myself and Dr. Marsh and this note is written on his behalf
[2017-11-02] MEDS: Pantoprazole Inj 40 MG Vial IV.PUSH SCH (13:40)
--- NOTE | 2017-11-02 14:21 | P.PNIM ---
Subjective Interval history: DW RN AND PT AND AND CM HAVING ISSUES WITH G-TUBE HOLD LACTINEX Physical Exam Vital signs: Vital Signs 11/01/17 16:00 11/01/17 20:00 11/02/17 00:00 Temperature 98.5 F 98.2 F 98.2 F Pulse Rate 92 H 93 H 91 H Respiratory Rate 16 16 16 Blood Pressure 131/62 120/59 L 134/69 Pulse Oximetry 99 95 94 L 11/02/17 04:00 11/02/17 08:00 11/02/17 12:00 Temperature 97.8 F 97.3 F L 97.9 F Pulse Rate 89 87 99 H Respiratory Rate 16 14 14 Blood Pressure 122/60 131/65 143/63 H Pulse Oximetry 93 L 97 96 Intake & Output 11/01/17 11/02/17 11/02/17 18:59 06:59 18:59 Intake Total 1350 / 1350 2350.1437 / 2350.1437 300 / 300 Output Total 300 / 300 200 / 200 Balance 1050 / 1050 2150.1437 / 2150.1437 300 / 300 Weight 203.2 kg 91.2 kg Intake: IV 1350 / 1350 2350.1437 / 2350.1437 300 / 300 D5W Inj 1,000 ML @ 84 mls/hr IV 1000 / 1000 .CONT .[id number] [facility] Rx#:[id number] Azithromycin Inj 500 MG In NS 250 / 250 250 / 250 Inj 250 ML @ 250 mls/hr IV.SIG Q24H [facility] Rx#:[id number] Intralipid 20% Inj 250 ML @ 31. 250 / 250 25 mls/hr IV.SIG DAILY@1999 [facility] Rx#:[id number] MVI-12 Inj 10 ML Folvite Inj 1 1999.1437 / 2000.1437 MG Sodium Chloride 23.4% Inj 11 MEQ Sodium Acetate Inj 59 MEQ Magnesium Chloride Inj 10 MEQ KCl Inj 40 MEQ Calcium Chloride Inj 9 MEQ In TPN Fluid 2 Liter 2,000 ML @ 83 mls/hr IV.SIG DAILY@1999 [facility] Rx#:[id number] Zosyn 3.375 GM Premix 50 ML @ 100 / 100 100 / 100 50 / 50 100 mls/hr IV.SIG Q6H [facility] Rx#: [id number] Output: Urine 300 / 300 200 / 200 Other: # Voids 5 # Incontinent Voids 1 Date of Last Bowel Movement 11/01/17 11/01/17 # Bowel Movements 1 # Incontinent Bowel Movements 2 Narrative: GENERAL: NAD, A&Ox3 HEAD: Normocephalic. NECK: Supple, trachea midline. No lymphadenopathy. EYES: No scleral icterus. No injection or drainage. CARDIOVASCULAR: Regular rate and rhythm without murmurs, gallops, or rubs. RESPIRATORY: Breath sounds equal bilaterally. No accessory muscle use. GASTROINTESTINAL: Abdomen soft, non-tender, nondistended. Tube feed G AND J TUBE in the anterior abdomen. G AND J TUBE MUSCULOSKELETAL: No cyanosis, or edema. SKIN: Warm and dry. NEURO: No focal neurological deficits. - Urinary Catheter Management Indwelling Urethral Catheter Cath placed during this visit: yes, but has since been removed by the nurse Reason for continuing: Decision to DC catheter Insertion date: 10/17/17 Insertion time: 17:30 Removal date: 10/25/17 Removal time: 14:38 Condom Cath placed during this visit: no Results - Labs CBC & Chem 7: 11/02/17 05:40 11/02/17 06:50 Laboratory Results - last 24 hr 11/01/17 11/02/17 11/02/17 17:32 00:58 05:08 WBC RBC Hgb Hct MCV MCH MCHC RDW Plt Count MPV Prelim Diff (Auto) Neut % (Auto) Lymph % (Auto) Larue % (Auto) Eos % (Auto) Baso % (Auto) Neut # (Auto) Lymph # (Auto) [place] # (Auto) Eos # (Auto) Baso # (Auto) WBC Differential Seg Neuts % (Manual) Band Neuts % (Manual) Lymphocytes % (Manual) Monocytes % (Manual) Basophils % (Manual) Myelocytes % (Man) Abs Neuts (Manual) Differential Comment Toxic Granulation Platelet Estimate Platelet Morphology Ovalocytes Sodium Potassium Chloride Carbon Dioxide Anion Gap BUN Creatinine Estimated GFR POC Glucose 263 H 316 H 330 H Random Glucose Calcium Total Bilirubin AST ALT Alkaline Phosphatase Total Protein Albumin Lipase 11/02/17 11/02/17 11/02/17 05:40 05:40 06:50 WBC 10.8 RBC 2.27 L Hgb 7.7 L Hct 23.9 L MCV 105.3 H MCH 34.0 MCHC 32.3 RDW 26.4 H Plt Count 190 MPV 9.8 Prelim Diff (Auto) Slide review pending Neut % (Auto) 79.2 H Lymph % (Auto) 16.2 Larue % (Auto) 4.3 Eos % (Auto) 0.1 Baso % (Auto) 0.2 Neut # (Auto) 8.6 H Lymph # (Auto) 1.8 Larue # (Auto) 0.5 Eos # (Auto) 0.0 Baso # (Auto) 0.0 WBC Differential Manual diff final Seg Neuts % (Manual) 76 H Band Neuts % (Manual) 10 H Lymphocytes % (Manual) 8 L Monocytes % (Manual) 4 Basophils % (Manual) 1 Myelocytes % (Man) 1 H Abs Neuts (Manual) 9.4 H Differential Comment . Toxic Granulation 1+ H Platelet Estimate Normal Platelet Morphology Normal Ovalocytes 1+ H Sodium 130 L Potassium 6.0 H D Chloride 100 Carbon Dioxide 24.6 Anion Gap 5 BUN 28 H Creatinine 1.20 Estimated GFR 58 L POC Glucose Random Glucose 604 H* D 282 H D Calcium 8.9 Total Bilirubin 0.7 AST 30 ALT 32 Alkaline Phosphatase 108 Total Protein 6.1 L Albumin 1.9 L Lipase 826 H 11/02/17 12:09 WBC RBC Hgb Hct MCV MCH MCHC RDW Plt Count MPV Prelim Diff (Auto) Neut % (Auto) Lymph % (Auto) Larue % (Auto) Eos % (Auto) Baso % (Auto) Neut # (Auto) Lymph # (Auto) Larue # (Auto) Eos # (Auto) Baso # (Auto) WBC Differential Seg Neuts % (Manual) Band Neuts % (Manual) Lymphocytes % (Manual) Monocytes % (Manual) Basophils % (Manual) Myelocytes % (Man) Abs Neuts (Manual) Differential Comment Toxic Granulation Platelet Estimate Platelet Morphology Ovalocytes Sodium Potassium Chloride Carbon Dioxide Anion Gap BUN Creatinine Estimated GFR POC Glucose 318 H Random Glucose Calcium Total Bilirubin AST ALT Alkaline Phosphatase Total Protein Albumin Lipase - Imaging Abdomen X-Ray 10/17/17 03:49 CONCLUSION: 1. No significant free intraperitoneal air. Abdomen/Pelvis CT 10/17/17 03:49 CONCLUSION: 1. Moderate peripancreatic inflammatory stranding consistent with pancreatitis. Pancreas enhances uniformly and there is no peripancreatic fluid collection at this time. 2. Interval placement of CBD stent with persistent intra and extra hepatic ductal dilatation. 3. Focal adynamic ileus in the proximal jejunum secondary to the peripancreatic inflammatory changes. 4. Stable additional ancillary findings, as above. Chest X-Ray 10/18/17 00:00 CONCLUSION: Pacemaker with moderate compensated cardiomegaly. I don't see significant failure. GI Procedure 10/18/17 00:00 CONCLUSION: Multiple filling defects are identified in the common bile duct which is distended. Abdomen/Pelvis CT 10/19/17 00:00 CONCLUSION: 1. Induration in the mesentery and abutting the undersurface of the pancreas. There is also induration in the posterior right pararenal space. This distribution is most suggestive of pancreatitis. 2. New dilatation the distal esophagus, stomach, and proximal small bowel. Contrast is seen to reach the colon. This could be a asymmetric ileus. Some degree of obstruction cannot be excluded. 3. Mild bilateral pleural effusions with accompanying areas of atelectasis or consolidation being worse on the right. 4. Pneumobilia. The previously seen biliary duct stent has been removed. The common bile duct is dilated measuring 1.8 cm. The patient is status post cholecystectomy. Abdomen X-Ray 10/19/17 10:44 CONCLUSION: No radiographic evidence of ileus or bowel obstruction. No evidence of free air. Abdomen X-Ray 10/20/17 06:00 CONCLUSION: Nasogastric tube tip not clearly seen. Mildly distended bowel loop in the left lower quadrant. Otherwise nonspecific Chest X-Ray 10/20/17 06:00 CONCLUSION: Slight interval worsening in aeration Abdomen X-Ray 10/21/17 00:00 CONCLUSION: Dilated bowel in the left mid abdomen. It is not clear if this is colon or small bowel but may represent small intestine dilatation. This has increased from the prior study. Given the appearance on prior CT from 2 days ago this could represent some degree of small bowel obstruction. Therefore, suggest attention to this at follow-up imaging. Small Bowel X-Ray 10/22/17 00:00 CONCLUSION: Findings suggest a partial mid to distal small bowel obstruction. Abdomen X-Ray 10/22/17 07:00 CONCLUSION: Dilated bowel loops in the left abdomen, unchanged. Chest X-Ray 10/23/17 03:34 CONCLUSION: Bilateral mostly basilar airspace disease and pleural effusions similar to October 20. Cardiomegaly. NG tip near GE junction with side port in distal esophagus. Gastrostomy Tube Placement 10/28/17 00:00 CONCLUSION: 1. Uncomplicated gastrojejunostomy tube placement as above. - Procedures ERCP 10/18/2017 IMPRESSIONS: 1. A previously placed ampulla stent was seen extending from the orifice, removed by snare. 2. 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 3. Sphincterotomy done. 4. Ductal sweep with balloon and irrigation removing multiple variable size stones, sludge and debris. 5. Normal inclusion cholangiogram afterward Assessment and Plan - Assessment (1) Pancreatitis Code(s): K85.90 - Acute pancreatitis without necrosis or infection, unspecified Status: Acute (2) Ileus, postoperative Code(s): K91.89 - Other postprocedural complications and disorders of digestive system; K56.7 - Ileus, unspecified Status: Acute - Plan 87 year old male with history of choledocholithiasis and cholangitis status post recent ERCP admitted on 10/[address] with [address] abdominal pain[address] CT A/ P as well as lipase level indicate acute pancreatitis. Course has been complicated by ileus. Pancreatic enzymes are showing improvement through time. Steroids will continue for 2 more days. Probiotics ongoing. Hernandez catheter and rectal bag removed. PPM placed on hold. Continue advancing tube feeds treatments as tolerated. Continue monitoring pancreatic enzymes. Pancreatitis Chronic diarrhea Persistent elevation lipase Feeding tube placement occurred on 10/28/2017 Continue physical therapy Continue monitoring for normal bowel activity Incentive spirometer GI following Probiotics- STOP DUE TO CLOGGING TUBES Low-dose steroids for suspected inflammatory etiology to discontinue on 2017 Partial small bowel obstruction Advancing diet cautiously Acute Kidney Injury Hypernatremia Hypokalemia Monitor BUN and creatinine Monitor sodium levels Monitor potassium levels and replace as needed Pneumonia Continue Zosyn and Azithromycin Plan to discontinue Zosyn and azithromycin at 14 days. Continue oxygen as needed Continue duo nebs as needed Anemia Acute on chronic Patient had a transfusion of 2 units packed red blood cells on 10/27/2017 Continue to monitor hemoglobin Atrial fibrillation First-degree AV block Right bundle branch block Currently rate controlled Follow on telemetry DVT prophylaxis SCDs Code Status: FULL CODE Discussed Condition With: RN AND PT AND CM AND Discharge Planning: WILL NEED SNF [place]
[2017-11-02 16:36] LABS: Anion Gap 8 meq/L (5-15)
[2017-11-02 16:41] LABS: Alanine Aminotransferase 32 U/L (12-78); Albumin 1.9 g/dL (3.4-5.0); Alkaline Phosphatase 110 U/L (45-117); Aspartate Aminotransferase 27 U/L (15-37); Blood Urea Nitrogen 29 mg/dL (7-18); Calcium 8.7 mg/dL (8.5-10.1); Carbon Dioxide 23.2 meq/L (21.0-32.0); Chloride 97 meq/L (98-107); Glomerular Filtration Rate 57 mL/min (>89); Potassium 6.2 meq/L (3.5-5.1); Sodium 128 meq/L (136-145); Total Protein 6.2 g/dL (6.4-8.2)
[2017-11-02 16:45] LABS: Glucose,Random 621 mg/dL (74-106)
[2017-11-02] MEDS ORDERED: SODIUM CHLORIDE IV.SIG SCH ×7 (20:00)
[2017-11-02] MEDS ORDERED: FOLIC ACID IV.SIG SCH ×7 (20:00)
[2017-11-02] MEDS ORDERED: [UNRECOGNIZED DRUG - OTHER] IV.SIG SCH ×7 (20:00)
[2017-11-02] MEDS ORDERED: MULTIVITAMIN IV.SIG SCH ×7 (20:00)
[2017-11-02] MEDS: Temazepam 15 MG Capsule PO PRN (21:31)
[2017-11-03] MEDS: Insulin NovoLOG Aspart Correctional Sugar Inj SQ SCH ×4 (01:30→18:56)
[2017-11-03 06:53] LABS: Baso # (Auto) 0.1 th/mm3 (0.0-0.2); Baso % (Auto) 0.9 % (0.0-2.0); Eos % (Auto) 0.1 % (0.0-4.0); Hematocrit 25.8 % (39.0-51.0); Hemoglobin 8.6 gm/dL (13.0-17.0); Lymph # (Auto) 1.8 th/mm3 (1.0-4.8); Lymph % (Auto) 15.1 % (9.0-44.0); Mean Corpuscular HGB Conc 33.2 % (32.0-36.0); Mean Corpuscular Hemoglobin 34.2 pg (27.0-34.0); Mean Platelet Volume 9.7 fL (7.0-11.0); Mono # (Auto) 0.4 th/mm3 (0.0-0.9); Mono % (Auto) 3.2 % (0.0-8.0); Neut # (Auto) 9.9 th/mm3 (1.8-7.7); Neut % (Auto) 80.7 % (16.0-70.0); Platelet Count 223 th/mm3 (150-450); Red Blood Count 2.51 mil/mm3 (4.50-5.90); Red Cell Distribution Width 26.5 % (11.6-17.2); White Blood Count 12.2 th/mm3 (4.0-11.0)
[2017-11-03 07:34] LABS: Alanine Aminotransferase 35 U/L (12-78); Albumin 2.2 g/dL (3.4-5.0); Alkaline Phosphatase 131 U/L (45-117); Anion Gap 8 meq/L (5-15); Aspartate Aminotransferase 25 U/L (15-37); Blood Urea Nitrogen 34 mg/dL (7-18); Carbon Dioxide 25.8 meq/L (21.0-32.0); Chloride 104 meq/L (98-107); Free T4 (Free Thyroxine) 1.32 ng/dL (0.76-1.46); Glomerular Filtration Rate 58 mL/min (>89); Glucose,Random 370 mg/dL (74-106); Lipase 830 U/L (73-393); Magnesium 2.3 mg/dL (1.5-2.5); Phosphorus 2.4 mg/dL (2.5-4.9); Potassium 4.4 meq/L (3.5-5.1); Sodium 138 meq/L (136-145); Thyroid Stimulating Hormone 0.871 uIU/mL (0.358-3.740); Total Protein 6.8 g/dL (6.4-8.2)
[2017-11-03 08:18] LABS: Lymphocytes 15 % (9-44); Metamyelocytes 1 % (0-1)
[2017-11-03 08:23] LABS: Platelet Estimate Normal (Normal)
[2017-11-03 08:24] LABS: Ovalocytes 1+
[2017-11-03] MEDS: Senna/Docusate Sodium 8.6/50 MG Tablet PO SCH ×2 (08:47→20:52)
[2017-11-03] MEDS: Nystatin Liq 500,000 UNIT/5 ML UDC SWISH-SPIT SCH ×4 (08:47→20:52)
[2017-11-03] MEDS: MethylPREDNISolone Sod Succinate Inj 40 MG/ML Vial IV.PUSH SCH (08:48)
[2017-11-03] MEDS: Heparin Central Flush 100 UNIT/ML 5 ML Vial IV.FLUSH SCH (08:48)
[2017-11-03 10:36] LABS: Hemoglobin A1c 5.8 % (4.3-6.0)
[2017-11-03] MEDS ORDERED: Diatrizoate Meglum/Diatrizoate Sod Liq 9 ML UDC PO ONE (13:30)
--- NOTE | 2017-11-03 14:21 | P.PN ---
Subjective Interval history: Follow-up on patient with acute pancreatitis. Patient seen and examined. Patient reports large bowel movement this morning. He states he is extremely hungry and is requesting to eat. He denies any fever or chills. He denies any nausea, vomiting or abdominal pain. Discussed with GI at the bedside, plan for repeat CT of the abdomen and pelvis and possibly starting on clear liquid diet today pending results. Physical Exam Vital signs: Vital Signs 11/02/17 16:00 11/02/17 20:00 11/02/17 20:20 Temperature 97.5 F L 98 F Pulse Rate 90 101 H 68 Respiratory Rate 14 18 Blood Pressure 130/59 L 120/69 Pulse Oximetry 94 L 98 11/03/17 00:00 11/03/17 01:30 11/03/17 06:00 Temperature 98.7 F 97.2 F L Pulse Rate 97 H 68 66 Respiratory Rate 18 17 Blood Pressure 118/67 118/65 Pulse Oximetry 98 97 11/03/17 08:00 11/03/17 12:00 Temperature 97.4 F L 97.7 F Pulse Rate 93 H 97 H Respiratory Rate 12 16 Blood Pressure 119/59 L 136/65 Pulse Oximetry 98 96 Intake & Output 11/02/17 11/03/17 11/03/17 18:59 06:59 18:59 Intake Total 300 / 300 0 / 0 Output Total 450 / 450 250 / 250 Balance 300 / 300 -450 / -450 -250 / -250 Weight 91.2 kg 91.5 kg Intake: IV 300 / 300 Azithromycin Inj 500 MG In NS 250 / 250 Inj 250 ML @ 250 mls/hr IV.SIG Q24H [facility] Rx#:[id number] Zosyn 3.375 GM Premix 50 ML @ 50 / 50 100 mls/hr IV.SIG Q6H [facility] Rx#: [id number] Oral 0 / 0 Output: Urine 450 / 450 Gastric Drainage 250 / 250 Gastrojejunostomy Tube 250 / 250 Other: # Voids 4 8 Date of Last Bowel Movement 11/02/17 # Bowel Movements 2 5 Narrative: GENERAL: Well-developed well-nourished elderly male patient, INAD, A& Ox3. Appears comfortable. is at the bedside. SKIN: Warm and dry. No generalized rash. HEENT: Atraumatic. Normocephalic. EOMI. sclera anicteric bilaterally. No nasal drainage noted. Airway patent. NECK: Supple, trachea midline. No lymphadenopathy. CARDIOVASCULAR: Regular rate and rhythm without murmurs, gallops, or rubs. RESPIRATORY: Breath sounds equal bilaterally. No accessory muscle use. Clear to auscultation. GASTROINTESTINAL: Abdomen soft, non-tender, nondistended. Tube feed G AND J TUBE in the anterior abdomen. MUSCULOSKELETAL: No cyanosis, or edema noted. NEURO: Awake and alert. Hard of hearing. Able to move all extremities spontaneously. No focal neurological deficits. Clear speech. PSYCHIATRIC: Calm and cooperative. Appropriate mood and affect. Normal judgment and insight. - Urinary Catheter Management Indwelling Urethral Catheter Cath placed during this visit: yes, but has since been removed by the nurse Reason for continuing: Decision to DC catheter Insertion date: 10/17/17 Insertion time: 17:30 Removal date: 10/25/17 Removal time: 14:38 Condom Cath placed during this visit: no Results - Labs CBC & Chem 7: 11/03/17 14:19 11/03/17 06:30 Laboratory Results - last 24 hr 11/02/17 11/02/17 11/03/17 16:05 17:58 01:13 WBC RBC Hgb Hct MCV MCH MCHC RDW Plt Count MPV Prelim Diff (Auto) Neut % (Auto) Lymph % (Auto) [place] % (Auto) Eos % (Auto) Baso % (Auto) Neut # (Auto) Lymph # (Auto) [place] # (Auto) Eos # (Auto) Baso # (Auto) WBC Differential Seg Neuts % (Manual) Band Neuts % (Manual) Lymphocytes % (Manual) Metamyelocytes % (Man) Abs Neuts (Manual) Differential Comment Platelet Estimate Platelet Morphology Ovalocytes Sodium 128 L Potassium 6.2 H Chloride 97 L Carbon Dioxide 23.2 Anion Gap 8 BUN 29 H Creatinine 1.21 Estimated GFR 57 L POC Glucose 348 H 344 H Random Glucose 621 H* D Hemoglobin A1c Calcium 8.7 Phosphorus Magnesium Total Bilirubin 0.7 AST 27 ALT 32 Alkaline Phosphatase 110 Total Protein 6.2 L Albumin 1.9 L Lipase TSH Free T4 11/03/17 11/03/17 11/03/17 05:48 06:30 06:30 WBC 12.2 H RBC 2.51 L Hgb 8.6 L Hct 25.8 L MCV 103.0 H MCH 34.2 H MCHC 33.2 RDW 26.5 H Plt Count 223 MPV 9.7 Prelim Diff (Auto) Slide review pending Neut % (Auto) 80.7 H Lymph % (Auto) 15.1 [place] % (Auto) 3.2 Eos % (Auto) 0.1 Baso % (Auto) 0.9 Neut # (Auto) 9.9 H Lymph # (Auto) 1.8 [place] # (Auto) 0.4 Eos # (Auto) 0.0 Baso # (Auto) 0.1 WBC Differential Manual diff final Seg Neuts % (Manual) 81 H Band Neuts % (Manual) 3 Lymphocytes % (Manual) 15 Metamyelocytes % (Man) 1 Abs Neuts (Manual) 10.4 H Differential Comment . Platelet Estimate Normal Platelet Morphology Enlarged H Ovalocytes 1+ H Sodium 138 D Potassium 4.4 D Chloride 104 Carbon Dioxide 25.8 Anion Gap 8 BUN 34 H Creatinine 1.20 Estimated GFR 58 L POC Glucose 389 H Random Glucose 370 H D Hemoglobin A1c Calcium 9.0 Phosphorus 2.4 L Magnesium 2.3 Total Bilirubin 0.7 AST 25 ALT 35 Alkaline Phosphatase 131 H Total Protein 6.8 D Albumin 2.2 L Lipase 830 H TSH 0.871 Free T4 1.32 11/03/17 11/03/17 06:30 12:40 WBC RBC Hgb Hct MCV MCH MCHC RDW Plt Count MPV Prelim Diff (Auto) Neut % (Auto) Lymph % (Auto) [place] % (Auto) Eos % (Auto) Baso % (Auto) Neut # (Auto) Lymph # (Auto) [place] # (Auto) Eos # (Auto) Baso # (Auto) WBC Differential Seg Neuts % (Manual) Band Neuts % (Manual) Lymphocytes % (Manual) Metamyelocytes % (Man) Abs Neuts (Manual) Differential Comment Platelet Estimate Platelet Morphology Ovalocytes Sodium Potassium Chloride Carbon Dioxide Anion Gap BUN Creatinine Estimated GFR POC Glucose 402 H Random Glucose Hemoglobin A1c 5.8 Calcium Phosphorus Magnesium Total Bilirubin AST ALT Alkaline Phosphatase Total Protein Albumin Lipase TSH Free T4 - Imaging Abdomen X-Ray 10/17/17 03:49 CONCLUSION: 1. No significant free intraperitoneal air. Abdomen/Pelvis CT 10/17/17 03:49 CONCLUSION: 1. Moderate peripancreatic inflammatory stranding consistent with pancreatitis. Pancreas enhances uniformly and there is no peripancreatic fluid collection at this time. 2. Interval placement of CBD stent with persistent intra and extra hepatic ductal dilatation. 3. Focal adynamic ileus in the proximal jejunum secondary to the peripancreatic inflammatory changes. 4. Stable additional ancillary findings, as above. Chest X-Ray 10/18/17 00:00 CONCLUSION: Pacemaker with moderate compensated cardiomegaly. I don't see significant failure. GI Procedure 10/18/17 00:00 CONCLUSION: Multiple filling defects are identified in the common bile duct which is distended. Abdomen/Pelvis CT 10/19/17 00:00 CONCLUSION: 1. Induration in the mesentery and abutting the undersurface of the pancreas. There is also induration in the posterior right pararenal space. This distribution is most suggestive of pancreatitis. 2. New dilatation the distal esophagus, stomach, and proximal small bowel. Contrast is seen to reach the colon. This could be a asymmetric ileus. Some degree of obstruction cannot be excluded. 3. Mild bilateral pleural effusions with accompanying areas of atelectasis or consolidation being worse on the right. 4. Pneumobilia. The previously seen biliary duct stent has been removed. The common bile duct is dilated measuring 1.8 cm. The patient is status post cholecystectomy. Abdomen X-Ray 10/19/17 10:44 CONCLUSION: No radiographic evidence of ileus or bowel obstruction. No evidence of free air. Abdomen X-Ray 10/20/17 06:00 CONCLUSION: Nasogastric tube tip not clearly seen. Mildly distended bowel loop in the left lower quadrant. Otherwise nonspecific Chest X-Ray 10/20/17 06:00 CONCLUSION: Slight interval worsening in aeration Abdomen X-Ray 10/21/17 00:00 CONCLUSION: Dilated bowel in the left mid abdomen. It is not clear if this is colon or small bowel but may represent small intestine dilatation. This has increased from the prior study. Given the appearance on prior CT from 2 days ago this could represent some degree of small bowel obstruction. Therefore, suggest attention to this at follow-up imaging. Small Bowel X-Ray 10/22/17 00:00 CONCLUSION: Findings suggest a partial mid to distal small bowel obstruction. Abdomen X-Ray 10/22/17 07:00 CONCLUSION: Dilated bowel loops in the left abdomen, unchanged. Chest X-Ray 10/23/17 03:34 CONCLUSION: Bilateral mostly basilar airspace disease and pleural effusions similar to October 20. Cardiomegaly. NG tip near GE junction with side port in distal esophagus. Gastrostomy Tube Placement 10/28/17 00:00 CONCLUSION: 1. Uncomplicated gastrojejunostomy tube placement as above. - Procedures ERCP 10/18/2017 IMPRESSIONS: 1. A previously placed ampulla stent was seen extending from the orifice, removed by snare. 2. 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 3. Sphincterotomy done. 4. Ductal sweep with balloon and irrigation removing multiple variable size stones, sludge and debris. 5. Normal inclusion cholangiogram afterward Assessment and Plan - Assessment (1) Pancreatitis Code(s): K85.90 - Acute pancreatitis without necrosis or infection, unspecified Status: Acute (2) Ileus, postoperative Code(s): K91.89 - Other postprocedural complications and disorders of digestive system; K56.7 - Ileus, unspecified Status: Acute - Plan 87 year old male with history of choledocholithiasis and cholangitis status post recent ERCP admitted on 10/17 with progressive abdominal pain. CT A/ P as well as lipase level indicate acute pancreatitis. Course has been complicated by ileus. Pancreatitis, improving Chronic diarrhea s/p ERCP with sphincterotomy and stent removal and stone and sludge removal Feeding tube placement occurred on 10/28/2017 Lipase level trending down GI following, plan for repeat CT of abdomen pelvis today and pending results may begin patient on clear liquid diet Probiotics- stopped due to clogging feeding tube Low-dose steroids for suspected inflammatory etiology to discontinue on 2017 Leukocytosis, suspect secondary to steroids Patient appears clinically much improved He is afebrile, does not appear septic continue to monitor white count Partial small bowel obstruction Advancing diet cautiously +BM Acute Kidney Injury, resolved Hypernatremia, resolved Hypokalemia, resolved Monitor BUN and creatinine Monitor sodium levels Monitor potassium levels and replace as needed Pneumonia Treated with IV Zosyn and Azithromycin 10/20 to 11/02 Continue duo nebs as needed Continue to monitor respiratory status Supplemental oxygen as needed to maintain O2 sats greater than 92% IS at bedside Anemia Acute on chronic Patient had a transfusion of 2 units packed red blood cells on 10/27/2017 Continue to monitor hemoglobin. Hgb has remained stable. No evidence of active bleeding. Continue to monitor. Atrial fibrillation First-degree AV block Right bundle branch block Currently rate controlled Follow on telemetry Hyperglycemia, suspect secondary to IV steroids Hgb A1c 5.8 BS not well controlled Continue Accu-Cheks, change to medium dose insulin sliding scale Discontinue IV steroids Generalized deconditioning Prolonged hospitalization Continue with PT/OT DVT prophylaxis SCDs Heparin sq resumed Discussed Condition With: Patient, , GI service and Dr. Hurst Discharge Planning: Not ready for discharge. Discharge pending clinical improvement, able to tolerate diet, GI clearance. Plan for discharge to [facility] once medically cleared.
[2017-11-03] MEDS: Pantoprazole Inj 40 MG Vial IV.PUSH SCH (14:26)
[2017-11-03 15:23] LABS: Baso # (Auto) 0.2 th/mm3 (0.0-0.2); Baso % (Auto) 1.5 % (0.0-2.0); Eos % (Auto) 0.1 % (0.0-4.0); Hematocrit 27.1 % (39.0-51.0); Hemoglobin 8.7 gm/dL (13.0-17.0); Lymph # (Auto) 2.2 th/mm3 (1.0-4.8); Lymph % (Auto) 15.3 % (9.0-44.0); Mean Corpuscular Hemoglobin 32.9 pg (27.0-34.0); Mean Platelet Volume 10.2 fL (7.0-11.0); Mono # (Auto) 0.4 th/mm3 (0.0-0.9); Neut # (Auto) 11.7 th/mm3 (1.8-7.7); Neut % (Auto) 80.1 % (16.0-70.0); Platelet Count 247 th/mm3 (150-450); Red Blood Count 2.63 mil/mm3 (4.50-5.90); Red Cell Distribution Width 26.7 % (11.6-17.2); White Blood Count 14.5 th/mm3 (4.0-11.0)
--- NOTE | 2017-11-03 16:18 | P.PNGI ---
Subjective Interval history: Patient has eyes open resting in the bed but appears very weak , in the room assisting with his history No current nausea or vomiting noted GJ tube intact, abdominal discomfort and mild distention, incontinence Current hemoglobin 8.7 Physical Exam Vital signs: Vital Signs 11/02/17 20:00 11/02/17 20:20 11/03/17 00:00 Temperature 98 F Pulse Rate 101 H 68 97 H Respiratory Rate 18 Blood Pressure 120/69 Pulse Oximetry 98 11/03/17 01:30 11/03/17 06:00 11/03/17 08:00 Temperature 98.7 F 97.2 F L 97.4 F L Pulse Rate 68 66 93 H Respiratory Rate 18 17 12 Blood Pressure 118/67 118/65 119/59 L Pulse Oximetry 98 97 98 11/03/17 12:00 Temperature 97.7 F Pulse Rate 97 H Respiratory Rate 16 Blood Pressure 136/65 Pulse Oximetry 96 Intake & Output 11/02/17 11/03/17 11/03/17 18:59 06:59 18:59 Intake Total 300 / 300 0 / 0 Output Total 450 / 450 250 / 250 Balance 300 / 300 -450 / -450 -250 / -250 Weight 91.2 kg 91.5 kg Intake: IV 300 / 300 Azithromycin Inj 500 MG In NS 250 / 250 Inj 250 ML @ 250 mls/hr IV.SIG Q24H [facility] Rx#:[id number] Zosyn 3.375 GM Premix 50 ML @ 50 / 50 100 mls/hr IV.SIG Q6H [facility] Rx#: [id number] Oral 0 / 0 Output: Urine 450 / 450 Gastric Drainage 250 / 250 Gastrojejunostomy Tube 250 / 250 Other: # Voids 4 8 Date of Last Bowel Movement 11/02/17 # Bowel Movements 2 5 - Constitutional mild distress - Routine HEENT Exam Head: Present: normocephalic ENT: Present: mucous membranes dry (Pale) - Routine Neck Exam Present: supple - Routine Respiratory Exam Present: CTA bilaterally (Even, unlabored at rest) - Routine Cardiovascular Exam Present: RRR - Routine Abdominal Exam Present: soft (Round, soft bowel sounds, GJ tube intact), distended (Mild with some generalized abdominal discomfort) - Urinary Catheter Management Indwelling Urethral Catheter Cath placed during this visit: yes, but has since been removed by the nurse Reason for continuing: Decision to DC catheter Insertion date: 10/17/17 Insertion time: 17:30 Removal date: 10/25/17 Removal time: 14:38 Condom Cath placed during this visit: no Results - Labs CBC & Chem 7: 11/03/17 14:19 11/03/17 06:30 Laboratory Results - last 24 hr 11/02/17 11/02/17 11/03/17 16:05 17:58 01:13 WBC RBC Hgb Hct MCV MCH MCHC RDW Plt Count MPV Prelim Diff (Auto) Neut % (Auto) Lymph % (Auto) Braxton % (Auto) Eos % (Auto) Baso % (Auto) Neut # (Auto) Lymph # (Auto) Braxton # (Auto) Eos # (Auto) Baso # (Auto) WBC Differential Seg Neuts % (Manual) Band Neuts % (Manual) Lymphocytes % (Manual) Metamyelocytes % (Man) Abs Neuts (Manual) Differential Comment Platelet Estimate Platelet Morphology Ovalocytes Sodium 128 L Potassium 6.2 H Chloride 97 L Carbon Dioxide 23.2 Anion Gap 8 BUN 29 H Creatinine 1.21 Estimated GFR 57 L POC Glucose 348 H 344 H Random Glucose 621 H* D Hemoglobin A1c Calcium 8.7 Phosphorus Magnesium Total Bilirubin 0.7 AST 27 ALT 32 Alkaline Phosphatase 110 Total Protein 6.2 L Albumin 1.9 L Lipase TSH Free T4 11/03/17 11/03/17 11/03/17 05:48 06:30 06:30 WBC 12.2 H RBC 2.51 L Hgb 8.6 L Hct 25.8 L MCV 103.0 H MCH 34.2 H MCHC 33.2 RDW 26.5 H Plt Count 223 MPV 9.7 Prelim Diff (Auto) Slide review pending Neut % (Auto) 80.7 H Lymph % (Auto) 15.1 Braxton % (Auto) 3.2 Eos % (Auto) 0.1 Baso % (Auto) 0.9 Neut # (Auto) 9.9 H Lymph # (Auto) 1.8 Braxton # (Auto) 0.4 Eos # (Auto) 0.0 Baso # (Auto) 0.1 WBC Differential Manual diff final Seg Neuts % (Manual) 81 H Band Neuts % (Manual) 3 Lymphocytes % (Manual) 15 Metamyelocytes % (Man) 1 Abs Neuts (Manual) 10.4 H Differential Comment . Platelet Estimate Normal Platelet Morphology Enlarged H Ovalocytes 1+ H Sodium 138 D Potassium 4.4 D Chloride 104 Carbon Dioxide 25.8 Anion Gap 8 BUN 34 H Creatinine 1.20 Estimated GFR 58 L POC Glucose 389 H Random Glucose 370 H D Hemoglobin A1c Calcium 9.0 Phosphorus 2.4 L Magnesium 2.3 Total Bilirubin 0.7 AST 25 ALT 35 Alkaline Phosphatase 131 H Total Protein 6.8 D Albumin 2.2 L Lipase 830 H TSH 0.871 Free T4 1.32 11/03/17 11/03/17 11/03/17 06:30 12:40 14:19 WBC 14.5 H RBC 2.63 L Hgb 8.7 L Hct 27.1 L MCV 103.0 H MCH 32.9 MCHC 32.0 RDW 26.7 H Plt Count 247 MPV 10.2 Prelim Diff (Auto) Slide review pending Neut % (Auto) 80.1 H Lymph % (Auto) 15.3 Braxton % (Auto) 3.0 Eos % (Auto) 0.1 Baso % (Auto) 1.5 Neut # (Auto) 11.7 H Lymph # (Auto) 2.2 Braxton # (Auto) 0.4 Eos # (Auto) 0.0 Baso # (Auto) 0.2 WBC Differential Seg Neuts % (Manual) Band Neuts % (Manual) Lymphocytes % (Manual) Metamyelocytes % (Man) Abs Neuts (Manual) Differential Comment . Platelet Estimate Platelet Morphology Ovalocytes Sodium Potassium Chloride Carbon Dioxide Anion Gap BUN Creatinine Estimated GFR POC Glucose 402 H Random Glucose Hemoglobin A1c 5.8 Calcium Phosphorus Magnesium Total Bilirubin AST ALT Alkaline Phosphatase Total Protein Albumin Lipase TSH Free T4 - Procedures ERCP 10/18/2017 IMPRESSIONS: 1. A previously placed ampulla stent was seen extending from the orifice, removed by snare. 2. 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 3. Sphincterotomy done. 4. Ductal sweep with balloon and irrigation removing multiple variable size stones, sludge and debris. 5. Normal inclusion cholangiogram afterward Assessment and Plan (1) Cholangitis Status: Acute Code(s): K83.0 - Cholangitis (2) Elevated LFTs Status: Acute Code(s): R94.5 - Abnormal results of liver function studies (3) Pancreatitis Status: Acute Code(s): K85.90 - Acute pancreatitis without necrosis or infection, unspecified - Plan Elevated LFTs and pancreatitis with recent ERCP with findings of biliary sludge and bile duct dilatation S/P balloon sweep and plastic stent placement on 10/11- Pt with history of choledocholithiasis and cholangitis. History of cholecystectomy. Complaining of: upper abdominal pain that began at 9pm last night after dinner at 8pm, constant, described as "hunger pains". Denies associated fever, chills, nausea, vomiting. Denies history of pancreatitis. Denies ETOH. CT abdomen and pelvis W IV contrast (10/17) Moderate peripancreatic inflammatory stranding consistent with pancreatitis. Pancreas enhances uniformly and there is no peripancreatic fluid collection at this time. Interval placement of CBD stent with persistent intra and extra hepatic ductal dilatation. Focal adynamic ileus in the proximal jejunum secondary to the peripancreatic inflammatory changes S/P ERCP (10/18) --> A previously placed ampulla stent was seen extending from the orifice, removed by snare. 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 Sphincterotomy done. Ductal sweep with balloon and irrigation removing multiple variable size stones, sludge and debris. Normal inclusion cholangiogram afterward Repeat CT abdomen and pelvis (10/19) --> Consistent with pancreatitis, new dilatation in the distal esophagus, stomach, and proximal small bowel, contrast is seen to reach the colon which could be asymmetric ileus, some degree of obstruction cannot be excluded. Pneumobilia, previously seen biliary duct stent has been removed, CBD is dilated measuring 1.8 cm. 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 Has been started on TPN- GJ placement today by IR. Has been having BMs for the past few days, however abdomen has remained distended. (10/29) Pt S/P GJ tube placement by IR yesterday, currently J tube is to gravity , discussed with RN will put G tube to suction. Abdomen distended and semi-firm. Pt has had stool today, currently has rectal bag, also had BM yesterday. Pt denies nausea, vomiting. Will try trickle feeds through J tube, G tube to suction. Goal to increase TF and wean off of TPN. (10/30) Pt states he feels well today. TF running at 10 mL/hr through J tube, G tube to gravity. Denies nausea, vomiting, abdominal pain. No BM yet today. Abdomen distended but soft. Will increase TF, once reaches goal decrease TPN by half and then discontinue when current supplies are depleted (10/31) TF turned up to 20 mL/hr through J tube last night per RN, she states no high residuals. Pt with G tube to nieto bag with small amount of green drainage. Pt has rectal tube to Nieto bag with small amount of liquid stool. (11/01/17) Tolerating TF okay, no residuals, having BMs Lipase today 1007 (11/02/17) Doing good today, tolerating TF, G to gravity. Lipase trending down today 826, LFTs wnl 11/03/2017, patient continues to appear weakened but opens eyes and attempts to respond does most of his history and talking for him. Answered questions and supportive care to and patient. Consider DC steroids and feed clear liquids for trial. No obvious bleeding noted. Will check CT scan today per Dr. Marsh stat, for pancreatic protocol and necrosis. Lipase level 830, continue to monitor patient's incontinence and number of stools intake and output. Plan: Diet clear liquid trial CT scan to evaluate pancreatic protocol and necrosis Recheck CBC in the morning Bowel regimen as needed Reglan Consider DC steroids Further recommendations to follow Pt has been seen and examined by myself and Dr. Marsh, note is written on his behalf
[2017-11-03 16:22] LABS: Eosinophils 1 % (0-4); Lymphocytes 15 % (9-44); Monocytes 3 % (0-8); Tallied Nucleated RBC 2 (0-0)
[2017-11-03 16:26] LABS: Dimorphic RBC Present
[2017-11-03 16:29] LABS: Platelet Estimate Normal (Normal)
--- NOTE | 2017-11-03 17:00 | CT ---
EXAM DATE: 11/03/2017 4:46 PM EDT AGE/SEX: 87 years / Male INDICATIONS: Upper abdomen pain. CLINICAL DATA: This is the patient's initial encounter. Patient reports that signs and symptoms have been present for 1 day and indicates a pain score of 4/10. MEDICAL/SURGICAL HISTORY: Pancreatitis. Gastroesophageal reflux disease. Cholecystectomy. ORAL CONTRAST: Prescribed oral contrast ingested. RADIATION DOSE: 6.97 CTDI (mGy) COMPARISON: No prior exams available for comparison. TECHNIQUE: Multiple contiguous axial images were obtained through the abdomen and pelvis following b olus infusion of 96 ml Omnipaque 350 (iohexol) nonionic water-soluble contrast as a single exam dos e. Prescribed oral contrast ingested. Using automated exposure control and adjustment of the mA and/ or kV according to patient size, radiation dose was kept as low as reasonably achievable to obtain op timal diagnostic quality images. DICOM format image data is available electronically for review and comparison. FINDINGS: Abdomen CT: There is worsening of previously seen area of induration adjacent to the pancreas. This area demonstr ates more soft tissue density within it and on the prior study from 10/19/2017 was mainly in strandy a ppearing process in the mesentery which does not demonstrate significant soft tissue prominence withi n it and maximum diameter of 6.2 x 12.2 cm in AP and transverse diameter, head abuts the pancreas ext ends for 16.9 cm in cranial caudal dimension, however the pancreas itself appears intact. It could st ill represent pancreatitis which has progressed, however somewhat unusual that the pancreas itself ap pears intact and this area is basically loculated to fat planes of the mesentery below the pancreas i tself. There is no evidence for pseudocyst formation. The liver, spleen, pancreas, kidneys, adrenals are unremarkable. There are calcified granulomas in the liver and spleen. GJ tube is in place. There is no evidence for any appreciable pathological adenopathy, free fluid, or bowel obstruction. Moderat e right pleural effusion is present with right lung base consolidation. There is a tiny left pleural effusion with slight left lung base atelectasis and/or infiltrate. There is evidence for prior cholec ystectomy. There are atherosclerotic calcifications involving the aorta and iliac arteries chronic in nature. Pelvic CT: There is no evidence for mass, abscess formation, or any significant adenopathy within the pelvis. Th ere are scattered diverticuli within the colon mainly the sigmoid colon without signs of diverticulit is for technique. CONCLUSION: 1. Since the prior study from 10/19/2017 the area of induration caudal to the pancreas within the fat has significantly progressed and demonstrates more soft tissue density within it and enlarged since that time. The pancreas itself appears intact and findings could represent pancreatitis although some what unusual in the pancreas itself is completely intact and normal. Clinical correlation is suggeste d. 2. Bilateral pleural effusions and bibasilar consolidation/infiltrate worse on the right. Electronically signed by: Amina Saleem MD 11/03/2017 4:59 PM EDT
[2017-11-03] MEDS: FOLIC ACID IV.SIG SCH ×7 (20:54)
[2017-11-03] MEDS: [UNRECOGNIZED DRUG - OTHER] IV.SIG SCH ×7 (20:54)
[2017-11-03] MEDS: MULTIVITAMIN IV.SIG SCH ×7 (20:54)
[2017-11-03] MEDS: SODIUM CHLORIDE IV.SIG SCH ×7 (20:54)
[2017-11-04] MEDS: Insulin NovoLOG Aspart Correctional Sugar Inj SQ SCH ×4 (00:55→18:52)
[2017-11-04 06:45] LABS: Baso # (Auto) 0.2 th/mm3 (0.0-0.2); Baso % (Auto) 1.8 % (0.0-2.0); Eos # (Auto) 0.4 th/mm3 (0.0-0.4); Eos % (Auto) 3.5 % (0.0-4.0); Hematocrit 24.4 % (39.0-51.0); Hemoglobin 7.7 gm/dL (13.0-17.0); Lymph # (Auto) 2.8 th/mm3 (1.0-4.8); Lymph % (Auto) 21.7 % (9.0-44.0); Mean Corpuscular HGB Conc 31.6 % (32.0-36.0); Mean Corpuscular Hemoglobin 32.9 pg (27.0-34.0); Mean Platelet Volume 9.7 fL (7.0-11.0); Mono # (Auto) 0.8 th/mm3 (0.0-0.9); Mono % (Auto) 6.3 % (0.0-8.0); Neut # (Auto) 8.5 th/mm3 (1.8-7.7); Neut % (Auto) 66.7 % (16.0-70.0); Platelet Count 219 th/mm3 (150-450); Red Blood Count 2.35 mil/mm3 (4.50-5.90); Red Cell Distribution Width 25.8 % (11.6-17.2); White Blood Count 12.7 th/mm3 (4.0-11.0)
[2017-11-04 07:17] LABS: Alanine Aminotransferase 34 U/L (12-78); Albumin 2.1 g/dL (3.4-5.0); Anion Gap 9 meq/L (5-15); Aspartate Aminotransferase 26 U/L (15-37); Blood Urea Nitrogen 32 mg/dL (7-18); Calcium 9.1 mg/dL (8.5-10.1); Carbon Dioxide 26.4 meq/L (21.0-32.0); Chloride 96 meq/L (98-107); Glomerular Filtration Rate 67 mL/min (>89); Glucose,Random 431 mg/dL (74-106); Potassium 3.4 meq/L (3.5-5.1); Sodium 131 meq/L (136-145)
[2017-11-04 07:23] LABS: Alkaline Phosphatase 97 U/L (45-117); Total Protein 5.9 g/dL (6.4-8.2)
[2017-11-04 08:12] LABS: Basophilic Stippling Moderate; Eosinophils 2 % (0-4); Lymphocytes 23 % (9-44); Monocytes 5 % (0-8); Myelocytes 1 % (0-0); Platelet Estimate Normal (Normal); Platelet Morphology Normal (Normal); Tallied Nucleated RBC 3 (0-0)
[2017-11-04 08:13] LABS: Ovalocytes 1+
[2017-11-04] MEDS ORDERED: Sodium Chlor 0.9% Inj 500 ML IV.SIG ONE (08:51)
--- NOTE | 2017-11-04 08:59 | P.PN ---
Subjective Interval history: Follow-up on patient with acute pancreatitis. Patient seen and examined. Patient denies any new medical complaints. He denies any fever or chills. He denies any chest pain or shortness of breath. He reports chronic cough that is unchanged and denies any productive sputum production. He denies any nausea, vomiting or abdominal pain. He is requesting to eat. He reports loose stool overnight. CT scan of the abdomen is ordered by GI revealed worsening area of induration caudal to the pancreas is increased soft tissue density and enlargement. Physical Exam Vital signs: Vital Signs 11/03/17 12:00 11/03/17 16:00 11/03/17 21:10 Temperature 97.7 F 97.5 F L 98 F Pulse Rate 97 H 91 H 83 Respiratory Rate 16 14 18 Blood Pressure 136/65 138/63 133/60 Pulse Oximetry 96 95 98 11/04/17 00:50 11/04/17 05:00 Temperature 97.9 F 98 F Pulse Rate 80 75 Respiratory Rate 20 20 Blood Pressure 130/88 128/88 Pulse Oximetry 97 96 Intake & Output 11/03/17 11/04/17 11/04/17 18:59 06:59 18:59 Intake Total 1612 / 1612 Output Total 250 / 250 2650 / 2650 Balance -250 / -250 -1038 / -1038 Weight 92 kg Intake: Oral 1612 / 1612 Output: Urine 2200 / 2200 Gastric Drainage 250 / 250 450 / 450 Gastrojejunostomy Tube 250 / 250 450 / 450 Other: # Bowel Movements 1 0 Narrative: GENERAL: Well-developed well-nourished elderly male patient, INAD, A& Ox3. Appears weak. SKIN: Warm and dry. No generalized rash. HEENT: Atraumatic. Normocephalic. EOMI. sclera anicteric bilaterally. No nasal drainage noted. Airway patent. NECK: Supple, trachea midline. No lymphadenopathy. CARDIOVASCULAR: Regular rate and rhythm without murmurs, gallops, or rubs. RESPIRATORY: Nonlabored. Decreased in both lung bases. Mild left sided basilar crackles noted. GASTROINTESTINAL: Abdomen soft, non-tender, nondistended. Tube feed G AND J TUBE in the anterior abdomen. MUSCULOSKELETAL: No cyanosis, or edema noted. NEURO: Awake and alert. Hard of hearing. Able to move all extremities spontaneously. No focal neurological deficits. Clear soft speech. PSYCHIATRIC: Calm and cooperative. Appropriate mood and affect. Normal judgment and insight. - Urinary Catheter Management Indwelling Urethral Catheter Cath placed during this visit: yes, but has since been removed by the nurse Reason for continuing: Decision to DC catheter Insertion date: 10/17/17 Insertion time: 17:30 Removal date: 10/25/17 Removal time: 14:38 Condom Cath placed during this visit: no Results - Labs CBC & Chem 7: 11/04/17 06:00 11/04/17 06:00 Laboratory Results - last 24 hr 11/03/17 11/03/17 11/03/17 06:30 12:40 14:19 WBC 14.5 H RBC 2.63 L Hgb 8.7 L Hct 27.1 L MCV 103.0 H MCH 32.9 MCHC 32.0 RDW 26.7 H Plt Count 247 MPV 10.2 Prelim Diff (Auto) Slide review pending Neut % (Auto) 80.1 H Lymph % (Auto) 15.3 Noble % (Auto) 3.0 Eos % (Auto) 0.1 Baso % (Auto) 1.5 Neut # (Auto) 11.7 H Lymph # (Auto) 2.2 Noble # (Auto) 0.4 Eos # (Auto) 0.0 Baso # (Auto) 0.2 WBC Differential Manual diff final Seg Neuts % (Manual) 74 H Band Neuts % (Manual) 7 H Lymphocytes % (Manual) 15 Monocytes % (Manual) 3 Eosinophils % (Manual) 1 Myelocytes % (Man) Abs Neuts (Manual) 11.7 H Nucleated RBCs/100 WBC 2 H Differential Comment . Platelet Estimate Normal Platelet Morphology Enlarged H Dimorphic RBCs Present H Basophilic Stippling Ovalocytes Keratocytes Occ H Sodium Potassium Chloride Carbon Dioxide Anion Gap BUN Creatinine Estimated GFR POC Glucose 402 H Random Glucose Hemoglobin A1c 5.8 Calcium Total Bilirubin AST ALT Alkaline Phosphatase Total Protein Albumin 11/03/17 11/03/17 11/04/17 16:24 18:38 03:06 WBC RBC Hgb Hct MCV MCH MCHC RDW Plt Count MPV Prelim Diff (Auto) Neut % (Auto) Lymph % (Auto) Noble % (Auto) Eos % (Auto) Baso % (Auto) Neut # (Auto) Lymph # (Auto) Noble # (Auto) Eos # (Auto) Baso # (Auto) WBC Differential Seg Neuts % (Manual) Band Neuts % (Manual) Lymphocytes % (Manual) Monocytes % (Manual) Eosinophils % (Manual) Myelocytes % (Man) Abs Neuts (Manual) Nucleated RBCs/100 WBC Differential Comment Platelet Estimate Platelet Morphology Dimorphic RBCs Basophilic Stippling Ovalocytes Keratocytes Sodium Potassium Chloride Carbon Dioxide Anion Gap BUN Creatinine Estimated GFR POC Glucose 313 H 360 H 204 H Random Glucose Hemoglobin A1c Calcium Total Bilirubin AST ALT Alkaline Phosphatase Total Protein Albumin 11/04/17 11/04/17 11/04/17 06:00 06:00 06:01 WBC 12.7 H RBC 2.35 L Hgb 7.7 L Hct 24.4 L MCV 104.0 H MCH 32.9 MCHC 31.6 L RDW 25.8 H Plt Count 219 MPV 9.7 Prelim Diff (Auto) Slide review pending Neut % (Auto) 66.7 Lymph % (Auto) 21.7 Noble % (Auto) 6.3 Eos % (Auto) 3.5 Baso % (Auto) 1.8 Neut # (Auto) 8.5 H Lymph # (Auto) 2.8 Noble # (Auto) 0.8 Eos # (Auto) 0.4 Baso # (Auto) 0.2 WBC Differential Manual diff final Seg Neuts % (Manual) 68 Band Neuts % (Manual) 1 Lymphocytes % (Manual) 23 Monocytes % (Manual) 5 Eosinophils % (Manual) 2 Myelocytes % (Man) 1 H Abs Neuts (Manual) 8.9 H Nucleated RBCs/100 WBC 3 H Differential Comment . Platelet Estimate Normal Platelet Morphology Normal Dimorphic RBCs Basophilic Stippling Moderate H Ovalocytes 1+ H Keratocytes Sodium 131 L Potassium 3.4 L D Chloride 96 L D Carbon Dioxide 26.4 Anion Gap 9 BUN 32 H Creatinine 1.05 Estimated GFR 67 L POC Glucose 156 H Random Glucose 431 H Hemoglobin A1c Calcium 9.1 Total Bilirubin 0.6 AST 26 ALT 34 Alkaline Phosphatase 97 Total Protein 5.9 L D Albumin 2.1 L - Imaging Impressions Abdomen/Pelvis CT 11/03/17 12:07 CONCLUSION: 1. Since the prior study from 10/19/2017 the area of induration caudal to the pancreas within the fat has significantly progressed and demonstrates more soft tissue density within it and enlarged since that time. The pancreas itself appears intact and findings could represent pancreatitis although somewhat unusual in the pancreas itself is completely intact and normal. Clinical correlation is suggested. 2. Bilateral pleural effusions and bibasilar consolidation/infiltrate worse on the right. Abdomen X-Ray 10/17/17 03:49 CONCLUSION: 1. No significant free intraperitoneal air. Abdomen/Pelvis CT 10/17/17 03:49 CONCLUSION: 1. Moderate peripancreatic inflammatory stranding consistent with pancreatitis. Pancreas enhances uniformly and there is no peripancreatic fluid collection at this time. 2. Interval placement of CBD stent with persistent intra and extra hepatic ductal dilatation. 3. Focal adynamic ileus in the proximal jejunum secondary to the peripancreatic inflammatory changes. 4. Stable additional ancillary findings, as above. Chest X-Ray 10/18/17 00:00 CONCLUSION: Pacemaker with moderate compensated cardiomegaly. I don't see significant failure. GI Procedure 10/18/17 00:00 CONCLUSION: Multiple filling defects are identified in the common bile duct which is distended. Abdomen/Pelvis CT 10/19/17 00:00 CONCLUSION: 1. Induration in the mesentery and abutting the undersurface of the pancreas. There is also induration in the posterior right pararenal space. This distribution is most suggestive of pancreatitis. 2. New dilatation the distal esophagus, stomach, and proximal small bowel. Contrast is seen to reach the colon. This could be a asymmetric ileus. Some degree of obstruction cannot be excluded. 3. Mild bilateral pleural effusions with accompanying areas of atelectasis or consolidation being worse on the right. 4. Pneumobilia. The previously seen biliary duct stent has been removed. The common bile duct is dilated measuring 1.8 cm. The patient is status post cholecystectomy. Abdomen X-Ray 10/19/17 10:44 CONCLUSION: No radiographic evidence of ileus or bowel obstruction. No evidence of free air. Abdomen X-Ray 10/20/17 06:00 CONCLUSION: Nasogastric tube tip not clearly seen. Mildly distended bowel loop in the left lower quadrant. Otherwise nonspecific Chest X-Ray 10/20/17 06:00 CONCLUSION: Slight interval worsening in aeration Abdomen X-Ray 10/21/17 00:00 CONCLUSION: Dilated bowel in the left mid abdomen. It is not clear if this is colon or small bowel but may represent small intestine dilatation. This has increased from the prior study. Given the appearance on prior CT from 2 days ago this could represent some degree of small bowel obstruction. Therefore, suggest attention to this at follow-up imaging. Small Bowel X-Ray 10/22/17 00:00 CONCLUSION: Findings suggest a partial mid to distal small bowel obstruction. Abdomen X-Ray 10/22/17 07:00 CONCLUSION: Dilated bowel loops in the left abdomen, unchanged. Chest X-Ray 10/23/17 03:34 CONCLUSION: Bilateral mostly basilar airspace disease and pleural effusions similar to October 20. Cardiomegaly. NG tip near GE junction with side port in distal esophagus. Gastrostomy Tube Placement 10/28/17 00:00 CONCLUSION: 1. Uncomplicated gastrojejunostomy tube placement as above. Abdomen/Pelvis CT 11/03/17 12:07 CONCLUSION: 1. Since the prior study from 10/19/2017 the area of induration caudal to the pancreas within the fat has significantly progressed and demonstrates more soft tissue density within it and enlarged since that time. The pancreas itself appears intact and findings could represent pancreatitis although somewhat unusual in the pancreas itself is completely intact and normal. Clinical correlation is suggested. 2. Bilateral pleural effusions and bibasilar consolidation/infiltrate worse on the right. - Procedures ERCP 10/18/2017 IMPRESSIONS: 1. A previously placed ampulla stent was seen extending from the orifice, removed by snare. 2. 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 3. Sphincterotomy done. 4. Ductal sweep with balloon and irrigation removing multiple variable size stones, sludge and debris. 5. Normal inclusion cholangiogram afterward Assessment and Plan - Assessment (1) Pancreatitis Code(s): K85.90 - Acute pancreatitis without necrosis or infection, unspecified Status: Acute (2) Ileus, postoperative Code(s): K91.89 - Other postprocedural complications and disorders of digestive system; K56.7 - Ileus, unspecified Status: Acute - Plan 87 year old male with history of choledocholithiasis and cholangitis status post recent ERCP admitted on 10/[address] with [address] abdominal pain. CT A/ P as well as lipase level indicate acute pancreatitis. Course has been complicated by ileus. Pancreatitis, improving Chronic diarrhea s/p ERCP with sphincterotomy and stent removal and stone and sludge removal Feeding tube placement occurred on 10/28/2017 Lipase level trending down GI following - repeat CT scan abd/pelvis 11/03 revealed area of induration caudal to the pancreas within the fat has significantly progressed and demonstrates more soft tissue density within it and enlarged since that time. Leukocytosis, possibly 2/2 steroid effect Recent PNA, treated with IV Zosyn and Azithromycin 10/20 to 11/02 CT scan abd/pelvis showed bilateral pleural effusions R>L, right lung base consolidation, possible infiltrate left lung base. Patient appears clinically much improved He is afebrile, does not appear septic He reports loose stools satting 96% on 2L Obtain CXR C diff ordered continue to monitor white count IS at bedside, encouraged use. Acapella Duonebs Continue to monitor respiratory status Supplemental oxygen to maintain 02 sats greater than 92% Partial small bowel obstruction patient having bowel movements CT abd/pelvis 11/03 shows no e/o obstruction monitor Hyponatremia, asymptomatic Na 131 this am Give small IVF bolus continue to monitor Na level, repeat lab in am Hypokalemia K 3.4 this am repletion ordered, repeat K level in am to monitor response Anemia Acute on chronic reviewed iron studies/B12/Folate 10/20 - essentially unremarkable Patient had a transfusion of 2 units packed red blood cells on 10/27/2017. 11/04 Hgb dropped from 8.7 to 7.7. Repeat CBC in am. Obtain stool hemoccult. No e/o active bleeding. Continue to monitor hemoglobin closely. Atrial fibrillation First-degree AV block Right bundle branch block Currently rate controlled Follow on telemetry Hyperglycemia, suspect secondary to IV steroids Hgb A1c 5.8 BS improved, 156 this am Continue Accu-Cheks, change to medium dose insulin sliding scale Generalized deconditioning Prolonged hospitalization Continue with PT/OT DVT prophylaxis SCDs Heparin sq Discussed Condition With: Patient, nursing staff, Dr. Hurst Discharge Planning: Not ready for discharge. Discharge pending clinical improvement, able to tolerate diet, GI clearance. Plan for discharge to [facility] once medically cleared.
[2017-11-04] MEDS ORDERED: Potassium Chloride 25 MEQ Effervescent Tablet G-TUBE ONE (09:00)
--- NOTE | 2017-11-04 09:14 | XR ---
EXAM DATE: 11/04/2017 8:52 AM EDT AGE/SEX: 87 years / Male INDICATIONS: Cough and shortness of breath. CLINICAL DATA: This is the patient's subsequent encounter. Patient reports that signs and symptoms h ave been present for 2 days and indicates a pain score of 0/10. MEDICAL/SURGICAL HISTORY: Gastroesophageal reflux disease. Pancreatitis. Cholelithiasis. Pace maker. Cholecystectomy. Biliary stent. COMPARISON: [facility] – [place], CHEST 1V SINGLE AP, 10/23/2017. . FINDINGS: The right costophrenic angle is blunted indicating a small effusion. Aerated portion lungs are clear. Mild airspace disease is seen in the right base. Heart and mediastinal structures are stable. CONCLUSION: Very small right pleural effusion otherwise stable chest without significant lung consolidation. Electronically signed by: Raymundo Liu MD 11/04/2017 9:12 AM EDT
[2017-11-04] MEDS: Senna/Docusate Sodium 8.6/50 MG Tablet PO SCH ×2 (09:47→23:08)
[2017-11-04] MEDS: Heparin - SQ 10,000 UNITS/ML Vial SQ SCH (09:47)
[2017-11-04] MEDS: Nystatin Liq 500,000 UNIT/5 ML UDC SWISH-SPIT SCH ×4 (09:47→23:07)
[2017-11-04] MEDS: Heparin Central Flush 100 UNIT/ML 5 ML Vial IV.FLUSH SCH (09:48)
--- NOTE | 2017-11-04 12:34 | P.PNGI ---
Subjective Interval history: Pt resting in bed, states feeling OK today. Denies nausea, vomiting, abdominal pain. Has had 2 BMs so far today, per RN semi-formed. G tube to gravity with small amount of bile colored output. J tube clamped. Pt remains on TPN. <TejasjoeyAlley - Last Filed: 11/04/17 12:23> Interval history: Seen and examined, very weak but overall better. No pain. Start liquid diet and wean off TPN slowly. CT to be repeated in 1 week depending upon clinical course. <Kezia Nelson - Last Filed: 11/04/17 14:56> Physical Exam Vital signs: Vital Signs 11/03/17 16:00 11/03/17 21:10 11/04/17 00:50 Temperature 97.5 F L 98 F 97.9 F Pulse Rate 91 H 83 80 Respiratory Rate 14 18 20 Blood Pressure 138/63 133/60 130/88 Pulse Oximetry 95 98 97 11/04/17 05:00 11/04/17 07:00 11/04/17 08:25 Temperature 98 F 98.9 F Pulse Rate 75 94 H Respiratory Rate 20 Blood Pressure 128/88 129/68 Pulse Oximetry 96 94 L 94 L Intake & Output 11/03/17 11/04/17 11/04/17 18:59 06:59 18:59 Intake Total 1612 / 1612 500 / 500 Output Total 250 / 250 2650 / 2650 Balance -250 / -250 -1038 / -1038 500 / 500 Weight 92 kg Intake: IV 500 / 500 NS Inj 500 ML @ Wide Open IV. 500 / 500 SIG BOLUS ONE Rx#:[id number] Oral 1612 / 1612 Output: Urine 2200 / 2200 Gastric Drainage 250 / 250 450 / 450 Gastrojejunostomy Tube 250 / 250 450 / 450 Other: Date of Last Bowel Movement 11/04/17 # Bowel Movements 1 0 - Constitutional no acute distress - Routine HEENT Exam Head: Present: normocephalic, atraumatic - Routine Respiratory Exam Absent: accessory muscle use - Routine Abdominal Exam Present: soft, normoactive bowel sounds. Absent: tenderness Comments: bruising to LLQ and RLQ - Routine Skin Exam Present: dry, pallor, warm - Routine Neurological Exam Present: alert, oriented X3 - Urinary Catheter Management Indwelling Urethral Catheter Cath placed during this visit: yes, but has since been removed by the nurse Reason for continuing: Decision to DC catheter Insertion date: 10/17/17 Insertion time: 17:30 Removal date: 10/25/17 Removal time: 14:38 Condom Cath placed during this visit: no <Alley Ruiz - Last Filed: 11/04/17 12:23> Vital signs: Vital Signs 11/03/17 16:00 11/03/17 21:10 11/04/17 00:50 Temperature 97.5 F L 98 F 97.9 F Pulse Rate 91 H 83 80 Respiratory Rate 14 18 20 Blood Pressure 138/63 133/60 130/88 Pulse Oximetry 95 98 97 11/04/17 05:00 11/04/17 07:00 11/04/17 08:25 Temperature 98 F 98.9 F Pulse Rate 75 94 H Respiratory Rate 20 Blood Pressure 128/88 129/68 Pulse Oximetry 96 94 L 94 L 11/04/17 12:00 Temperature 98.1 F Pulse Rate 102 H Respiratory Rate 20 Blood Pressure 134/71 Pulse Oximetry 95 Intake & Output 11/03/17 11/04/17 11/04/17 18:59 06:59 18:59 Intake Total 1612 / 1612 500 / 500 Output Total 250 / 250 2650 / 2650 Balance -250 / -250 -1038 / -1038 500 / 500 Weight 92 kg Intake: IV 500 / 500 NS Inj 500 ML @ Wide Open IV. 500 / 500 SIG BOLUS ONE Rx#:[id number] Oral 1612 / 1612 Output: Urine 2200 / 2200 Gastric Drainage 250 / 250 450 / 450 Gastrojejunostomy Tube 250 / 250 450 / 450 Other: Date of Last Bowel Movement 11/04/17 # Bowel Movements 1 0 - Urinary Catheter Management Indwelling Urethral Catheter Cath placed during this visit: no Condom Cath placed during this visit: no <Kezia Nelson - Last Filed: 11/04/17 14:56> Results - Labs CBC & Chem 7: 11/04/17 06:00 11/04/17 06:00 Laboratory Results - last 24 hr 11/03/17 11/03/17 11/03/17 12:40 14:19 16:24 WBC 14.5 H RBC 2.63 L Hgb 8.7 L Hct 27.1 L MCV 103.0 H MCH 32.9 MCHC 32.0 RDW 26.7 H Plt Count 247 MPV 10.2 Prelim Diff (Auto) Slide review pending Neut % (Auto) 80.1 H Lymph % (Auto) 15.3 [place] % (Auto) 3.0 Eos % (Auto) 0.1 Baso % (Auto) 1.5 Neut # (Auto) 11.7 H Lymph # (Auto) 2.2 [place] # (Auto) 0.4 Eos # (Auto) 0.0 Baso # (Auto) 0.2 WBC Differential Manual diff final Seg Neuts % (Manual) 74 H Band Neuts % (Manual) 7 H Lymphocytes % (Manual) 15 Monocytes % (Manual) 3 Eosinophils % (Manual) 1 Myelocytes % (Man) Abs Neuts (Manual) 11.7 H Nucleated RBCs/100 WBC 2 H Differential Comment . Platelet Estimate Normal Platelet Morphology Enlarged H Dimorphic RBCs Present H Basophilic Stippling Ovalocytes Keratocytes Occ H Sodium Potassium Chloride Carbon Dioxide Anion Gap BUN Creatinine Estimated GFR POC Glucose 402 H 313 H Random Glucose Calcium Total Bilirubin AST ALT Alkaline Phosphatase Total Protein Albumin 11/03/17 11/04/17 11/04/17 18:38 03:06 06:00 WBC 12.7 H RBC 2.35 L Hgb 7.7 L Hct 24.4 L MCV 104.0 H MCH 32.9 MCHC 31.6 L RDW 25.8 H Plt Count 219 MPV 9.7 Prelim Diff (Auto) Slide review pending Neut % (Auto) 66.7 Lymph % (Auto) 21.7 [place] % (Auto) 6.3 Eos % (Auto) 3.5 Baso % (Auto) 1.8 Neut # (Auto) 8.5 H Lymph # (Auto) 2.8 [place] # (Auto) 0.8 Eos # (Auto) 0.4 Baso # (Auto) 0.2 WBC Differential Manual diff final Seg Neuts % (Manual) 68 Band Neuts % (Manual) 1 Lymphocytes % (Manual) 23 Monocytes % (Manual) 5 Eosinophils % (Manual) 2 Myelocytes % (Man) 1 H Abs Neuts (Manual) 8.9 H Nucleated RBCs/100 WBC 3 H Differential Comment . Platelet Estimate Normal Platelet Morphology Normal Dimorphic RBCs Basophilic Stippling Moderate H Ovalocytes 1+ H Keratocytes Sodium Potassium Chloride Carbon Dioxide Anion Gap BUN Creatinine Estimated GFR POC Glucose 360 H 204 H Random Glucose Calcium Total Bilirubin AST ALT Alkaline Phosphatase Total Protein Albumin 11/04/17 11/04/17 06:00 06:01 WBC RBC Hgb Hct MCV MCH MCHC RDW Plt Count MPV Prelim Diff (Auto) Neut % (Auto) Lymph % (Auto) [place] % (Auto) Eos % (Auto) Baso % (Auto) Neut # (Auto) Lymph # (Auto) [place] # (Auto) Eos # (Auto) Baso # (Auto) WBC Differential Seg Neuts % (Manual) Band Neuts % (Manual) Lymphocytes % (Manual) Monocytes % (Manual) Eosinophils % (Manual) Myelocytes % (Man) Abs Neuts (Manual) Nucleated RBCs/100 WBC Differential Comment Platelet Estimate Platelet Morphology Dimorphic RBCs Basophilic Stippling Ovalocytes Keratocytes Sodium 131 L Potassium 3.4 L D Chloride 96 L D Carbon Dioxide 26.4 Anion Gap 9 BUN 32 H Creatinine 1.05 Estimated GFR 67 L POC Glucose 156 H Random Glucose 431 H Calcium 9.1 Total Bilirubin 0.6 AST 26 ALT 34 Alkaline Phosphatase 97 Total Protein 5.9 L D Albumin 2.1 L - Imaging Impressions Abdomen/Pelvis CT 11/03/17 12:07 CONCLUSION: 1. Since the prior study from 10/19/2017 the area of induration caudal to the pancreas within the fat has significantly progressed and demonstrates more soft tissue density within it and enlarged since that time. The pancreas itself appears intact and findings could represent pancreatitis although somewhat unusual in the pancreas itself is completely intact and normal. Clinical correlation is suggested. 2. Bilateral pleural effusions and bibasilar consolidation/infiltrate worse on the right. Chest X-Ray 11/04/17 00:00 CONCLUSION: Very small right pleural effusion otherwise stable chest without significant lung consolidation. - Procedures ERCP 10/18/2017 IMPRESSIONS: 1. A previously placed ampulla stent was seen extending from the orifice, removed by snare. 2. 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 3. Sphincterotomy done. 4. Ductal sweep with balloon and irrigation removing multiple variable size stones, sludge and debris. 5. Normal inclusion cholangiogram afterward <Alley Ruiz - Last Filed: 11/04/17 12:23> - Labs CBC & Chem 7: 11/04/17 06:00 11/04/17 06:00 Laboratory Results - last 24 hr 11/03/17 11/03/17 11/03/17 14:19 16:24 18:38 WBC 14.5 H RBC 2.63 L Hgb 8.7 L Hct 27.1 L MCV 103.0 H MCH 32.9 MCHC 32.0 RDW 26.7 H Plt Count 247 MPV 10.2 Prelim Diff (Auto) Slide review pending Neut % (Auto) 80.1 H Lymph % (Auto) 15.3 [place] % (Auto) 3.0 Eos % (Auto) 0.1 Baso % (Auto) 1.5 Neut # (Auto) 11.7 H Lymph # (Auto) 2.2 [place] # (Auto) 0.4 Eos # (Auto) 0.0 Baso # (Auto) 0.2 WBC Differential Manual diff final Seg Neuts % (Manual) 74 H Band Neuts % (Manual) 7 H Lymphocytes % (Manual) 15 Monocytes % (Manual) 3 Eosinophils % (Manual) 1 Myelocytes % (Man) Abs Neuts (Manual) 11.7 H Nucleated RBCs/100 WBC 2 H Differential Comment . Platelet Estimate Normal Platelet Morphology Enlarged H Dimorphic RBCs Present H Basophilic Stippling Ovalocytes Keratocytes Occ H Sodium Potassium Chloride Carbon Dioxide Anion Gap BUN Creatinine Estimated GFR POC Glucose 313 H 360 H Random Glucose Calcium Total Bilirubin AST ALT Alkaline Phosphatase Total Protein Albumin 11/04/17 11/04/17 11/04/17 03:06 06:00 06:00 WBC 12.7 H RBC 2.35 L Hgb 7.7 L Hct 24.4 L MCV 104.0 H MCH 32.9 MCHC 31.6 L RDW 25.8 H Plt Count 219 MPV 9.7 Prelim Diff (Auto) Slide review pending Neut % (Auto) 66.7 Lymph % (Auto) 21.7 [place] % (Auto) 6.3 Eos % (Auto) 3.5 Baso % (Auto) 1.8 Neut # (Auto) 8.5 H Lymph # (Auto) 2.8 [place] # (Auto) 0.8 Eos # (Auto) 0.4 Baso # (Auto) 0.2 WBC Differential Manual diff final Seg Neuts % (Manual) 68 Band Neuts % (Manual) 1 Lymphocytes % (Manual) 23 Monocytes % (Manual) 5 Eosinophils % (Manual) 2 Myelocytes % (Man) 1 H Abs Neuts (Manual) 8.9 H Nucleated RBCs/100 WBC 3 H Differential Comment . Platelet Estimate Normal Platelet Morphology Normal Dimorphic RBCs Basophilic Stippling Moderate H Ovalocytes 1+ H Keratocytes Sodium 131 L Potassium 3.4 L D Chloride 96 L D Carbon Dioxide 26.4 Anion Gap 9 BUN 32 H Creatinine 1.05 Estimated GFR 67 L POC Glucose 204 H Random Glucose 431 H Calcium 9.1 Total Bilirubin 0.6 AST 26 ALT 34 Alkaline Phosphatase 97 Total Protein 5.9 L D Albumin 2.1 L 11/04/17 11/04/17 06:01 13:14 WBC RBC Hgb Hct MCV MCH MCHC RDW Plt Count MPV Prelim Diff (Auto) Neut % (Auto) Lymph % (Auto) [place] % (Auto) Eos % (Auto) Baso % (Auto) Neut # (Auto) Lymph # (Auto) [place] # (Auto) Eos # (Auto) Baso # (Auto) WBC Differential Seg Neuts % (Manual) Band Neuts % (Manual) Lymphocytes % (Manual) Monocytes % (Manual) Eosinophils % (Manual) Myelocytes % (Man) Abs Neuts (Manual) Nucleated RBCs/100 WBC Differential Comment Platelet Estimate Platelet Morphology Dimorphic RBCs Basophilic Stippling Ovalocytes Keratocytes Sodium Potassium Chloride Carbon Dioxide Anion Gap BUN Creatinine Estimated GFR POC Glucose 156 H 258 H Random Glucose Calcium Total Bilirubin AST ALT Alkaline Phosphatase Total Protein Albumin - Imaging Impressions Abdomen/Pelvis CT 11/03/17 12:07 CONCLUSION: 1. Since the prior study from 10/19/2017 the area of induration caudal to the pancreas within the fat has significantly progressed and demonstrates more soft tissue density within it and enlarged since that time. The pancreas itself appears intact and findings could represent pancreatitis although somewhat unusual in the pancreas itself is completely intact and normal. Clinical correlation is suggested. 2. Bilateral pleural effusions and bibasilar consolidation/infiltrate worse on the right. Chest X-Ray 11/04/17 00:00 CONCLUSION: Very small right pleural effusion otherwise stable chest without significant lung consolidation. <Kezia Nelson - Last Filed: 11/04/17 14:56> Assessment and Plan (1) Cholangitis Status: Acute Code(s): K83.0 - Cholangitis (2) Elevated LFTs Status: Acute Code(s): R94.5 - Abnormal results of liver function studies (3) Pancreatitis Status: Acute Code(s): K85.90 - Acute pancreatitis without necrosis or infection, unspecified - Plan Elevated LFTs and pancreatitis with recent ERCP with findings of biliary sludge and bile duct dilatation S/P balloon sweep and plastic stent placement on 10/11- Pt with history of choledocholithiasis and cholangitis. History of cholecystectomy. Complaining of: upper abdominal pain that began at 9pm last night after dinner at 8pm, constant, described as "hunger pains". Denies associated fever, chills, nausea, vomiting. Denies history of pancreatitis. Denies ETOH. CT abdomen and pelvis W IV contrast (10/17) Moderate peripancreatic inflammatory stranding consistent with pancreatitis. Pancreas enhances uniformly and there is no peripancreatic fluid collection at this time. Interval placement of CBD stent with persistent intra and extra hepatic ductal dilatation. Focal adynamic ileus in the proximal jejunum secondary to the peripancreatic inflammatory changes S/P ERCP (10/18) --> A previously placed ampulla stent was seen extending from the orifice, removed by snare. 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 Sphincterotomy done. Ductal sweep with balloon and irrigation removing multiple variable size stones, sludge and debris. Normal inclusion cholangiogram afterward Repeat CT abdomen and pelvis (10/19) --> Consistent with pancreatitis, new dilatation in the distal esophagus, stomach, and proximal small bowel, contrast is seen to reach the colon which could be asymmetric ileus, some degree of obstruction cannot be excluded. Pneumobilia, previously seen biliary duct stent has been removed, CBD is dilated measuring 1.8 cm. 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 Has been started on TPN- GJ placement by IR. Has been having BMs for the past few days, however abdomen has remained distended. (11/04) Pt was started on clear liquids last night after CT. Was tolerating TF at 45 mL/hr until this was turned off because he was started on clear liquids. Remains on TPN. Ileus appears to be resolved, pt with two BMs today, according to RN semi- formed. Plan: Continue clear liquids, advance as tolerated Recommend follow up CT, ? week Wean off of TPN Continue supportive care Further recommendations to follow Pt has been seen and examined by myself and Dr. Nelson and this note is written on his behalf <Alley Ruiz - Last Filed: 11/04/17 12:23> (1) Cholangitis Status: Acute Code(s): K83.0 - Cholangitis (2) Elevated LFTs Status: Acute Code(s): R94.5 - Abnormal results of liver function studies (3) Pancreatitis Status: Acute Code(s): K85.90 - Acute pancreatitis without necrosis or infection, unspecified <Kezia Nelson - Last Filed: 11/04/17 14:56>
[2017-11-04] MEDS: Pantoprazole Inj 40 MG Vial IV.PUSH SCH (13:18)
--- NOTE | 2017-11-04 15:22 | P.DIET ---
Nutritional Evaluation Type of nutrition evaluation: follow-up Nutrition consult regarding: TPN/PPN Nutrition screening: [facility] – [place] ( TF recs 10/30) Objective - Diagnosis Acute Pancreatitis, Recent ERCP - Objective % IBW: 118 (IBW = 178#) Body Weight Used for Calculations: Actual (95.7 kg) Energy Needs - Lower Range (kCal/kg): 25 Energy Needs - Upper Range (kCal/kg): 30 Lower Limit kCal/kg (kCals): 2,393 Upper Limit kCal/kg (kCals): 2,871 Lower Limit Protein Factor (Grams per Kg): 1.0 Upper Limit Protein Factor (Grams per Kg): 1.5 Lower Protein Needs (Protein): 96 Upper Protein Needs (Protein): 144 Dietitian Reviewed in Medical Record: Current diet, Curent medications, Intake & Output, Labs, Medical history, TPN/PPN Diet Order: clear liquids Feeding - Current TPN/PPN Current PPN: Clinimix 4.25/5 (Renal Formula) Current TPN/PPN Rate (ml/hr): 42 Amino Acid and Dextrose Current kCals Provided: 340 Amino Acid and Dextrose Current Protein Provided: 43 (gms) Assessment Assessment: Pt continues at high nutrition risk r/t diagnosis and need for nutrition support. He has no N/V/D, (+) BM, g-t to gravity and his j-t is clamped. He has been advanced to clear liquids. Pt is receiving TPN as above. No lipids have been given since (11/01). To meet needs with TPN, recommend Clinimix 5/25 @ 83 mls/hr wth current diet. Hyperglycemia noted. Request weekly TG in setting of TPN and pancreatitis. Wt changes noted. Recommendations: For TPN: Clinimix 5/25 @ 83 mls/hr Wean TPN as diet increases Dietitian to Monitor: Lab values, Glucose level, Intake & Output, Diet tolerance , Tube feeding tolerance, TPN/PPN tolerance, Weight change, PO Intake, Diet advancement, Medical course
[2017-11-04 16:35] LABS: Lipase 818 U/L (73-393)
[2017-11-04 16:44] LABS: Amylase 139 U/L (25-115)
[2017-11-05] MEDS: Insulin NovoLOG Aspart Correctional Sugar Inj SQ SCH ×4 (00:30→17:58)
[2017-11-05] MEDS: [UNRECOGNIZED DRUG - OTHER] IV.SIG SCH ×7 (00:50)
[2017-11-05] MEDS: SODIUM CHLORIDE IV.SIG SCH ×7 (00:50)
[2017-11-05] MEDS: MULTIVITAMIN IV.SIG SCH ×7 (00:50)
[2017-11-05] MEDS: FOLIC ACID IV.SIG SCH ×7 (00:50)
[2017-11-05 08:41] LABS: Baso # (Auto) 0.1 th/mm3 (0.0-0.2); Baso % (Auto) 1.4 % (0.0-2.0); Eos # (Auto) 0.4 th/mm3 (0.0-0.4); Eos % (Auto) 4.7 % (0.0-4.0); Hematocrit 25.1 % (39.0-51.0); Hemoglobin 8.2 gm/dL (13.0-17.0); Lymph # (Auto) 2.2 th/mm3 (1.0-4.8); Lymph % (Auto) 23.1 % (9.0-44.0); Mean Corpuscular HGB Conc 32.5 % (32.0-36.0); Mean Corpuscular Hemoglobin 33.4 pg (27.0-34.0); Mean Corpuscular Volume 102.8 fL (80.0-100.0); Mean Platelet Volume 9.4 fL (7.0-11.0); Mono # (Auto) 0.6 th/mm3 (0.0-0.9); Mono % (Auto) 6.1 % (0.0-8.0); Neut # (Auto) 6.1 th/mm3 (1.8-7.7); Neut % (Auto) 64.7 % (16.0-70.0); Platelet Count 233 th/mm3 (150-450); Red Blood Count 2.44 mil/mm3 (4.50-5.90); Red Cell Distribution Width 26.5 % (11.6-17.2); White Blood Count 9.4 th/mm3 (4.0-11.0)
[2017-11-05 09:04] LABS: Albumin 2.4 g/dL (3.4-5.0); Anion Gap 7 meq/L (5-15); Aspartate Aminotransferase 28 U/L (15-37); Blood Urea Nitrogen 30 mg/dL (7-18); Calcium 9.2 mg/dL (8.5-10.1); Carbon Dioxide 27.2 meq/L (21.0-32.0); Chloride 104 meq/L (98-107); Glomerular Filtration Rate 74 mL/min (>89); Glucose,Random 164 mg/dL (74-106); Magnesium 2.1 mg/dL (1.5-2.5); Potassium 4.1 meq/L (3.5-5.1); Sodium 138 meq/L (136-145)
[2017-11-05 09:06] LABS: Alanine Aminotransferase 36 U/L (12-78); Phosphorus 3.2 mg/dL (2.5-4.9)
[2017-11-05 09:08] LABS: Alkaline Phosphatase 113 U/L (45-117); Total Protein 6.5 g/dL (6.4-8.2)
[2017-11-05 09:25] LABS: Dimorphic RBC Present; Eosinophils 5 % (0-4); Lymphocytes 23 % (9-44); Metamyelocytes 1 % (0-1); Monocytes 2 % (0-8); Myelocytes 1 % (0-0)
[2017-11-05 09:26] LABS: Platelet Estimate Normal (Normal); Platelet Morphology Normal (Normal)
[2017-11-05] MEDS: Heparin Central Flush 100 UNIT/ML 5 ML Vial IV.FLUSH SCH (09:48)
[2017-11-05] MEDS: Nystatin Liq 500,000 UNIT/5 ML UDC SWISH-SPIT SCH ×4 (09:48→21:58)
[2017-11-05] MEDS: Senna/Docusate Sodium 8.6/50 MG Tablet PO SCH ×2 (09:48→21:59)
--- NOTE | 2017-11-05 10:02 | P.PN ---
Subjective Interval history: Follow-up on patient with acute pancreatitis. Patient seen and examined. Patient denies any new medical complaints. He is tolerating liquid diet. G/J clamped. He denies any nausea, vomiting or abdominal pain. He denies any chest pain or shortness of breath. Physical Exam Vital signs: Vital Signs 11/04/17 12:00 11/04/17 15:40 11/04/17 16:00 Temperature 98.1 F 98.1 F Pulse Rate 109 H 99 H Respiratory Rate 20 20 Blood Pressure 134/71 134/71 Pulse Oximetry 95 95 95 11/04/17 19:00 11/04/17 20:00 11/05/17 00:00 Temperature 98.1 F 98.9 F Pulse Rate 103 H 100 H Respiratory Rate 18 18 Blood Pressure 116/56 L 118/56 L Pulse Oximetry 95 94 L 95 11/05/17 04:00 11/05/17 08:00 11/05/17 08:18 Temperature 98.5 F 97.5 F L Pulse Rate 100 H 95 H Respiratory Rate 18 16 Blood Pressure 120/60 124/74 Pulse Oximetry 95 95 98 Intake & Output 11/04/17 11/05/17 11/05/17 18:59 06:59 18:59 Intake Total 500 / 500 2040.3937 / 2040.3937 Output Total 250 / 250 275 / 275 Balance 250 / 250 2040.3937 / 2040.3937 -275 / -275 Weight 92 kg Intake: IV 500 / 500 2040.3937 / 2040.3937 MVI-12 Inj 10 ML Folvite Inj 1 0.3937 / 2040.3937 MG Sodium Chloride 23.4% Inj 15 MEQ Sodium Acetate Inj 59 MEQ Magnesium Chloride Inj 10 MEQ Calcium Chloride Inj 9 MEQ In TPN Fluid 2 Liter 2,000 ML @ 82 .404 mls/hr IV.SIG DAILY@1999 [facility] Rx#:[id number] NS Inj 500 ML @ Wide Open IV. 500 / 500 SIG BOLUS ONE Rx#:[id number] Output: Urine 275 / 275 Gastric Drainage 250 / 250 Gastrojejunostomy Tube 250 / 250 Other: # Incontinent Voids 3 Date of Last Bowel Movement 11/04/17 Narrative: GENERAL: Well-developed well-nourished elderly male patient, INAD, A& Ox3. Looks better today. Sitting up in bedside chair participating with therapy. is at the bedside. SKIN: Warm and dry. No generalized rash. HEENT: Atraumatic. Normocephalic. EOMI. sclera anicteric bilaterally. No nasal drainage noted. Airway patent. NECK: Supple, trachea midline. No lymphadenopathy. CARDIOVASCULAR: Regular rate and rhythm without murmurs, gallops, or rubs. RESPIRATORY: Nonlabored. Decreased in both lung bases. Clear to auscultation. GASTROINTESTINAL: Abdomen soft, non-tender, nondistended. Tube feed G AND J TUBE in the anterior abdomen clamped. MUSCULOSKELETAL: No cyanosis, or edema noted. NEURO: Awake and alert. Hard of hearing. Able to move all extremities spontaneously. No focal neurological deficits. Clear speech. PSYCHIATRIC: Calm and cooperative. Appropriate mood and affect. Normal judgment and insight. - Urinary Catheter Management Indwelling Urethral Catheter Cath placed during this visit: yes, but has since been removed by the nurse Reason for continuing: Decision to DC catheter Insertion date: 10/17/17 Insertion time: 17:30 Removal date: 10/25/17 Removal time: 14:38 Condom Cath placed during this visit: no Results - Labs CBC & Chem 7: 11/05/17 07:00 11/05/17 07:00 Laboratory Results - last 24 hr 11/04/17 11/04/17 11/04/17 06:00 13:14 18:22 WBC RBC Hgb Hct MCV MCH MCHC RDW Plt Count MPV Prelim Diff (Auto) Neut % (Auto) Lymph % (Auto) [place] % (Auto) Eos % (Auto) Baso % (Auto) Neut # (Auto) Lymph # (Auto) [place] # (Auto) Eos # (Auto) Baso # (Auto) WBC Differential Seg Neuts % (Manual) Band Neuts % (Manual) Lymphocytes % (Manual) Monocytes % (Manual) Eosinophils % (Manual) Basophils % (Manual) Metamyelocytes % (Man) Myelocytes % (Man) Abs Neuts (Manual) Differential Comment Platelet Estimate Platelet Morphology Dimorphic RBCs Sodium Potassium Chloride Carbon Dioxide Anion Gap BUN Creatinine Estimated GFR POC Glucose 258 H 189 H Random Glucose Calcium Phosphorus Magnesium Total Bilirubin AST ALT Alkaline Phosphatase Total Protein Albumin Amylase 139 H Lipase 818 H 11/04/17 11/04/17 11/05/17 21:19 23:21 07:00 WBC 9.4 RBC 2.44 L Hgb 8.2 L Hct 25.1 L MCV 102.8 H MCH 33.4 MCHC 32.5 RDW 26.5 H Plt Count 233 MPV 9.4 Prelim Diff (Auto) Slide review pending Neut % (Auto) 64.7 Lymph % (Auto) 23.1 [place] % (Auto) 6.1 Eos % (Auto) 4.7 H Baso % (Auto) 1.4 Neut # (Auto) 6.1 Lymph # (Auto) 2.2 [place] # (Auto) 0.6 Eos # (Auto) 0.4 Baso # (Auto) 0.1 WBC Differential Manual diff final Seg Neuts % (Manual) 61 Band Neuts % (Manual) 6 Lymphocytes % (Manual) 23 Monocytes % (Manual) 2 Eosinophils % (Manual) 5 H Basophils % (Manual) 1 Metamyelocytes % (Man) 1 Myelocytes % (Man) 1 H Abs Neuts (Manual) 6.5 Differential Comment . Platelet Estimate Normal Platelet Morphology Normal Dimorphic RBCs Present H Sodium Potassium Chloride Carbon Dioxide Anion Gap BUN Creatinine Estimated GFR POC Glucose 133 H 164 H Random Glucose Calcium Phosphorus Magnesium Total Bilirubin AST ALT Alkaline Phosphatase Total Protein Albumin Amylase Lipase 11/05/17 11/05/17 07:00 07:20 WBC RBC Hgb Hct MCV MCH MCHC RDW Plt Count MPV Prelim Diff (Auto) Neut % (Auto) Lymph % (Auto) [place] % (Auto) Eos % (Auto) Baso % (Auto) Neut # (Auto) Lymph # (Auto) [place] # (Auto) Eos # (Auto) Baso # (Auto) WBC Differential Seg Neuts % (Manual) Band Neuts % (Manual) Lymphocytes % (Manual) Monocytes % (Manual) Eosinophils % (Manual) Basophils % (Manual) Metamyelocytes % (Man) Myelocytes % (Man) Abs Neuts (Manual) Differential Comment Platelet Estimate Platelet Morphology Dimorphic RBCs Sodium 138 Potassium 4.1 Chloride 104 D Carbon Dioxide 27.2 Anion Gap 7 BUN 30 H Creatinine 0.96 Estimated GFR 74 L POC Glucose 169 H Random Glucose 164 H D Calcium 9.2 Phosphorus 3.2 Magnesium 2.1 Total Bilirubin 0.8 AST 28 ALT 36 Alkaline Phosphatase 113 Total Protein 6.5 D Albumin 2.4 L Amylase Lipase - Imaging ITS Impressions GI Procedure 10/18/17 00:00 CONCLUSION: Multiple filling defects are identified in the common bile duct which is distended. Small Bowel X-Ray 10/22/17 00:00 CONCLUSION: Findings suggest a partial mid to distal small bowel obstruction. Abdomen X-Ray 10/22/17 07:00 CONCLUSION: Dilated bowel loops in the left abdomen, unchanged. Gastrostomy Tube Placement 10/28/17 00:00 CONCLUSION: 1. Uncomplicated gastrojejunostomy tube placement as above. Abdomen/Pelvis CT 11/03/17 12:07 CONCLUSION: 1. Since the prior study from 10/19/2017 the area of induration caudal to the pancreas within the fat has significantly progressed and demonstrates more soft tissue density within it and enlarged since that time. The pancreas itself appears intact and findings could represent pancreatitis although somewhat unusual in the pancreas itself is completely intact and normal. Clinical correlation is suggested. 2. Bilateral pleural effusions and bibasilar consolidation/infiltrate worse on the right. Chest X-Ray 11/04/17 00:00 CONCLUSION: Very small right pleural effusion otherwise stable chest without significant lung consolidation. - Procedures ERCP 10/18/2017 IMPRESSIONS: 1. A previously placed ampulla stent was seen extending from the orifice, removed by snare. 2. 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 3. Sphincterotomy done. 4. Ductal sweep with balloon and irrigation removing multiple variable size stones, sludge and debris. 5. Normal inclusion cholangiogram afterward Assessment and Plan - Assessment (1) Pancreatitis Code(s): K85.90 - Acute pancreatitis without necrosis or infection, unspecified Status: Acute (2) Ileus, postoperative Code(s): K91.89 - Other postprocedural complications and disorders of digestive system; K56.7 - Ileus, unspecified Status: Acute - Plan 87 year old male with history of choledocholithiasis and cholangitis status post recent ERCP admitted on 10/[address] A/ P as well as lipase level indicate acute pancreatitis. Course has been complicated by ileus. Pancreatitis, improving Chronic diarrhea s/p ERCP with sphincterotomy and stent removal and stone and sludge removal Feeding tube placement occurred on 10/28/2017 Lipase level improved but remains elevated GI following - repeat CT scan abd/pelvis 11/03 revealed area of induration caudal to the pancreas within the fat has significantly progressed and demonstrates more soft tissue density within it and enlarged since that time. Off TPN. Tolerating clear liquid diet, per GI advanced to low-fat tomorrow Leukocytosis, possibly 2/2 steroid effect Recent PNA, treated with IV Zosyn and Azithromycin 10/20 to 11/02 CT scan abd/pelvis showed bilateral pleural effusions R>L, right lung base consolidation, possible infiltrate left lung base. Patient appears clinically much improved He is afebrile, does not appear septic. Denies loose stools. White count WNL. Chest x-ray shows small right pleural effusion, images reviewed by me. IS at bedside, encouraged use. Blaze Sanchez Continue to monitor respiratory status Supplemental oxygen to maintain 02 sats greater than 92% Partial small bowel obstruction patient having bowel movements CT abd/pelvis 11/03 shows no e/o obstruction monitor Hyponatremia, asymptomatic Na 138 this am continue to monitor Na level Hypokalemia, resolved s/p repletion Anemia Acute on chronic reviewed iron studies/B12/Folate 10/20 - essentially unremarkable Patient had a transfusion of 2 units packed red blood cells on 10/27/2017. 11/04 Hgb dropped from 8.7 to 7.7. Stool Hemoccult negative. Hemoglobin improved 8.2 today. No e/o active bleeding. Continue to monitor hemoglobin as indicated. Atrial fibrillation First-degree AV block Right bundle branch block Currently rate controlled Follow on telemetry Hyperglycemia, suspect secondary to IV steroids Hgb A1c 5.8 BS improved, 169 this am Continue Accu-Cheks, change to medium dose insulin sliding scale Generalized deconditioning Prolonged hospitalization Continue with PT/OT DVT prophylaxis SCDs Heparin sq Discussed Condition With: Patient, , nursing staff, Dr. Jackson Discharge Planning: Not ready for discharge. Discharge pending clinical improvement, able to tolerate diet, GI clearance. Plan for discharge to [facility] once medically cleared.
--- NOTE | 2017-11-05 15:17 | P.PNGI ---
Subjective Interval history: Seen and examined in the presence of . Doing better. Tolerating liquid diet. G/J clamped Physical Exam Vital signs: Vital Signs 11/04/17 15:40 11/04/17 16:00 11/04/17 19:00 Temperature 98.1 F Pulse Rate 99 H Respiratory Rate 20 Blood Pressure 134/71 Pulse Oximetry 95 95 95 11/04/17 20:00 11/05/17 00:00 11/05/17 04:00 Temperature 98.1 F 98.9 F 98.5 F Pulse Rate 103 H 100 H 100 H Respiratory Rate 18 18 18 Blood Pressure 116/56 L 118/56 L 120/60 Pulse Oximetry 94 L 95 95 11/05/17 08:00 11/05/17 08:18 11/05/17 12:00 Temperature 97.5 F L 97.7 F Pulse Rate 95 H 102 H Respiratory Rate 16 19 Blood Pressure 124/74 115/60 Pulse Oximetry 95 98 96 Intake & Output 11/04/17 11/05/17 11/05/17 18:59 06:59 18:59 Intake Total 500 / 500 2040.3937 / 2040.3937 855 / 855 Output Total 250 / 250 575 / 575 Balance 250 / 250 2040.3937 / 2040.3937 280 / 280 Weight 92 kg Intake: IV 500 / 500 2040.3937 / 2040.3937 375 / 375 MVI-12 Inj 10 ML Folvite Inj 1 0.3937 / 2040.3937 375 / 375 MG Sodium Chloride 23.4% Inj 15 MEQ Sodium Acetate Inj 59 MEQ Magnesium Chloride Inj 10 MEQ Calcium Chloride Inj 9 MEQ In TPN Fluid 2 Liter 2,000 ML @ 82 .404 mls/hr IV.SIG DAILY@1999 [facility] Rx#:[id number] NS Inj 500 ML @ Wide Open IV. 500 / 500 SIG BOLUS ONE Rx#:[id number] Oral 480 / 480 Output: Urine 575 / 575 Gastric Drainage 250 / 250 Gastrojejunostomy Tube 250 / 250 Other: # Incontinent Voids 3 Date of Last Bowel Movement 11/04/17 11/05/17 - Constitutional no acute distress - Routine HEENT Exam Head: Present: normocephalic, atraumatic Eye: Present: EOMI ENT: Present: mucous membranes moist - Routine Neck Exam Present: supple - Routine Respiratory Exam Present: decreased breath sounds - Routine Cardiovascular Exam Present: RRR - Routine Abdominal Exam Present: soft, normoactive bowel sounds - Urinary Catheter Management Indwelling Urethral Catheter Cath placed during this visit: yes, but has since been removed by the nurse Reason for continuing: Decision to DC catheter Insertion date: 10/17/17 Insertion time: 17:30 Removal date: 10/25/17 Removal time: 14:38 Condom Cath placed during this visit: no Results - Labs CBC & Chem 7: 11/05/17 07:00 11/05/17 07:00 Laboratory Results - last 24 hr 11/04/17 11/04/17 11/04/17 06:00 18:22 21:19 WBC RBC Hgb Hct MCV MCH MCHC RDW Plt Count MPV Prelim Diff (Auto) Neut % (Auto) Lymph % (Auto) [place] % (Auto) Eos % (Auto) Baso % (Auto) Neut # (Auto) Lymph # (Auto) [place] # (Auto) Eos # (Auto) Baso # (Auto) WBC Differential Seg Neuts % (Manual) Band Neuts % (Manual) Lymphocytes % (Manual) Monocytes % (Manual) Eosinophils % (Manual) Basophils % (Manual) Metamyelocytes % (Man) Myelocytes % (Man) Abs Neuts (Manual) Differential Comment Platelet Estimate Platelet Morphology Dimorphic RBCs Sodium Potassium Chloride Carbon Dioxide Anion Gap BUN Creatinine Estimated GFR POC Glucose 189 H 133 H Random Glucose Calcium Phosphorus Magnesium Total Bilirubin AST ALT Alkaline Phosphatase Total Protein Albumin Amylase 139 H Lipase 818 H Stl C.difficile Tox PCR St C. diff Tox Epid 027 11/04/17 11/05/17 11/05/17 23:21 07:00 07:00 WBC 9.4 RBC 2.44 L Hgb 8.2 L Hct 25.1 L MCV 102.8 H MCH 33.4 MCHC 32.5 RDW 26.5 H Plt Count 233 MPV 9.4 Prelim Diff (Auto) Slide review pending Neut % (Auto) 64.7 Lymph % (Auto) 23.1 [place] % (Auto) 6.1 Eos % (Auto) 4.7 H Baso % (Auto) 1.4 Neut # (Auto) 6.1 Lymph # (Auto) 2.2 [place] # (Auto) 0.6 Eos # (Auto) 0.4 Baso # (Auto) 0.1 WBC Differential Manual diff final Seg Neuts % (Manual) 61 Band Neuts % (Manual) 6 Lymphocytes % (Manual) 23 Monocytes % (Manual) 2 Eosinophils % (Manual) 5 H Basophils % (Manual) 1 Metamyelocytes % (Man) 1 Myelocytes % (Man) 1 H Abs Neuts (Manual) 6.5 Differential Comment . Platelet Estimate Normal Platelet Morphology Normal Dimorphic RBCs Present H Sodium 138 Potassium 4.1 Chloride 104 D Carbon Dioxide 27.2 Anion Gap 7 BUN 30 H Creatinine 0.96 Estimated GFR 74 L POC Glucose 164 H Random Glucose 164 H D Calcium 9.2 Phosphorus 3.2 Magnesium 2.1 Total Bilirubin 0.8 AST 28 ALT 36 Alkaline Phosphatase 113 Total Protein 6.5 D Albumin 2.4 L Amylase Lipase Stl C.difficile Tox PCR St C. diff Tox Epid 027 11/05/17 11/05/17 11/05/17 07:20 09:49 11:45 WBC RBC Hgb Hct MCV MCH MCHC RDW Plt Count MPV Prelim Diff (Auto) Neut % (Auto) Lymph % (Auto) [place] % (Auto) Eos % (Auto) Baso % (Auto) Neut # (Auto) Lymph # (Auto) [place] # (Auto) Eos # (Auto) Baso # (Auto) WBC Differential Seg Neuts % (Manual) Band Neuts % (Manual) Lymphocytes % (Manual) Monocytes % (Manual) Eosinophils % (Manual) Basophils % (Manual) Metamyelocytes % (Man) Myelocytes % (Man) Abs Neuts (Manual) Differential Comment Platelet Estimate Platelet Morphology Dimorphic RBCs Sodium Potassium Chloride Carbon Dioxide Anion Gap BUN Creatinine Estimated GFR POC Glucose 169 H 205 H Random Glucose Calcium Phosphorus Magnesium Total Bilirubin AST ALT Alkaline Phosphatase Total Protein Albumin Amylase Lipase Stl C.difficile Tox PCR Negative St C. diff Tox Epid 027 Negative - Procedures ERCP 10/18/2017 IMPRESSIONS: 1. A previously placed ampulla stent was seen extending from the orifice, removed by snare. 2. 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 3. Sphincterotomy done. 4. Ductal sweep with balloon and irrigation removing multiple variable size stones, sludge and debris. 5. Normal inclusion cholangiogram afterward Assessment and Plan (1) Cholangitis Status: Acute Code(s): K83.0 - Cholangitis (2) Elevated LFTs Status: Acute Code(s): R94.5 - Abnormal results of liver function studies (3) Pancreatitis Status: Acute Code(s): K85.90 - Acute pancreatitis without necrosis or infection, unspecified - Plan Elevated LFTs and pancreatitis with recent ERCP with findings of biliary sludge and bile duct dilatation S/P balloon sweep and plastic stent placement on 10/11- Pt with history of choledocholithiasis and cholangitis. History of cholecystectomy. Complaining of: upper abdominal pain that began at 9pm last night after dinner at 8pm, constant, described as "hunger pains". Denies associated fever, chills, nausea, vomiting. Denies history of pancreatitis. Denies ETOH. CT abdomen and pelvis W IV contrast (10/17) Moderate peripancreatic inflammatory stranding consistent with pancreatitis. Pancreas enhances uniformly and there is no peripancreatic fluid collection at this time. Interval placement of CBD stent with persistent intra and extra hepatic ductal dilatation. Focal adynamic ileus in the proximal jejunum secondary to the peripancreatic inflammatory changes S/P ERCP (10/18) --> A previously placed ampulla stent was seen extending from the orifice, removed by snare. 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 Sphincterotomy done. Ductal sweep with balloon and irrigation removing multiple variable size stones, sludge and debris. Normal inclusion cholangiogram afterward Repeat CT abdomen and pelvis (10/19) --> Consistent with pancreatitis, new dilatation in the distal esophagus, stomach, and proximal small bowel, contrast is seen to reach the colon which could be asymmetric ileus, some degree of obstruction cannot be excluded. Pneumobilia, previously seen biliary duct stent has been removed, CBD is dilated measuring 1.8 cm. 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 Has been started on TPN- GJ placement by IR. Has been having BMs for the past few days, however abdomen has remained distended. (11/04) Pt was started on clear liquids last night after CT. Was tolerating TF at 45 mL/hr until this was turned off because he was started on clear liquids. Remains on TPN. Ileus appears to be resolved, pt with two BMs today, according to RN semi- formed. Plan: Continue clear liquids, advance as tolerated Recommend follow up CT, ? week Wean off of TPN Continue supportive care Further recommendations to follow Pt has been seen and examined by myself and Dr. [facility] and this note is written on his behalf Doing better, still weak, tolerating clear liquid diet, will advance to low fat tomorrow if tolerating well. Lipase still elevated. Needs physical therapy. TPN/ TF stopped.
[2017-11-05] MEDS: Pantoprazole Inj 40 MG Vial IV.PUSH SCH (15:32)
--- NOTE | 2017-11-05 18:18 | ECG ---
Date Performed: 11/05/2017 Time Performed: 10:16:56 PTAGE: 87 years EKG: ELECTRONIC VENTRICULAR PACEMAKER ABNORMAL RHYTHM ECG PREVIOUS TRACING : 10/23/2017 06.25 Compared to prior tracing,the rhythm is now paced. DOCTOR: Don Arcos Interpretating Date/Time 11/05/2017 18:18:16
[2017-11-06] MEDS: Insulin NovoLOG Aspart Correctional Sugar Inj SQ SCH ×5 (01:41→23:14)
--- NOTE | 2017-11-06 07:43 | P.PN ---
Subjective Interval history: Follow-up on patient with acute pancreatitis. Patient seen and examined. Patient states he did not sleep well last night. Otherwise he denies any acute medical complaints. He denies any nausea, vomiting or abdominal pain. He is tolerating his clear liquid diet. He reports mild, nonproductive chronic cough. Denies any chest pain or shortness of breath. He denies any complaints of dysuria or diarrhea. Discussed with nursing staff, no acute issues noted. Physical Exam Vital signs: Vital Signs 11/05/17 08:00 11/05/17 08:18 11/05/17 12:00 Temperature 97.5 F L 97.7 F Pulse Rate 95 H 101 H Respiratory Rate 16 19 Blood Pressure 124/74 115/60 Pulse Oximetry 95 98 96 11/05/17 16:00 11/05/17 17:34 11/05/17 20:00 Temperature 97.8 F 98.6 F Pulse Rate 100 H 97 H Respiratory Rate 18 18 Blood Pressure 128/59 L 115/56 L Pulse Oximetry 94 L 94 L 95 11/06/17 00:00 11/06/17 04:00 11/06/17 07:31 Temperature 98.3 F 98.5 F 97.4 F L Pulse Rate 76 77 97 H Respiratory Rate 18 18 12 Blood Pressure 139/68 135/70 127/58 L Pulse Oximetry 95 96 93 L Intake & Output 11/05/17 11/06/17 11/06/17 18:59 06:59 18:59 Intake Total 1335 / 1335 Output Total 750 / 750 Balance 585 / 585 Weight 92 kg Intake: IV 375 / 375 MVI-12 Inj 10 ML Folvite Inj 1 375 / 375 MG Sodium Chloride 23.4% Inj 15 MEQ Sodium Acetate Inj 59 MEQ Magnesium Chloride Inj 10 MEQ Calcium Chloride Inj 9 MEQ In TPN Fluid 2 Liter 2,000 ML @ 82 .404 mls/hr IV.SIG DAILY@1999 [facility] Rx#:[id number] Oral 960 / 960 Output: Urine 750 / 750 Other: # Incontinent Voids 3 Date of Last Bowel Movement 11/05/17 Narrative: GENERAL: Well-developed well-nourished elderly male patient, INAD, A& Ox3. Appears more tired today. SKIN: Warm and dry. No generalized rash. HEENT: Atraumatic. Normocephalic. EOMI. sclera anicteric bilaterally. No nasal drainage noted. Airway patent. MMM. NECK: Supple, trachea midline. No lymphadenopathy. CARDIOVASCULAR: Tachycardic without murmurs, gallops, or rubs. RESPIRATORY: Nonlabored. Decreased in both lung bases. Clear to auscultation. GASTROINTESTINAL: Abdomen soft, non-tender, nondistended. Tube feed G AND J TUBE in the anterior abdomen clamped. MUSCULOSKELETAL: No cyanosis, or edema noted. NEURO: Awake and alert. Hard of hearing. Able to move all extremities spontaneously. No focal neurological deficits. Clear speech. PSYCHIATRIC: Calm and cooperative. Appropriate mood and affect. Normal judgment and insight. - Urinary Catheter Management Indwelling Urethral Catheter Cath placed during this visit: yes, but has since been removed by the nurse Reason for continuing: Decision to DC catheter Insertion date: 10/17/17 Insertion time: 17:30 Removal date: 10/25/17 Removal time: 14:38 Condom Cath placed during this visit: no Results - Labs CBC & Chem 7: 11/05/17 07:00 11/05/17 07:00 Laboratory Results - last 24 hr 11/05/17 11/05/17 11/05/17 07:00 07:00 09:49 WBC 9.4 RBC 2.44 L Hgb 8.2 L Hct 25.1 L MCV 102.8 H MCH 33.4 MCHC 32.5 RDW 26.5 H Plt Count 233 MPV 9.4 Prelim Diff (Auto) Slide review pending Neut % (Auto) 64.7 Lymph % (Auto) 23.1 Stewart % (Auto) 6.1 Eos % (Auto) 4.7 H Baso % (Auto) 1.4 Neut # (Auto) 6.1 Lymph # (Auto) 2.2 Stewart # (Auto) 0.6 Eos # (Auto) 0.4 Baso # (Auto) 0.1 WBC Differential Manual diff final Seg Neuts % (Manual) 61 Band Neuts % (Manual) 6 Lymphocytes % (Manual) 23 Monocytes % (Manual) 2 Eosinophils % (Manual) 5 H Basophils % (Manual) 1 Metamyelocytes % (Man) 1 Myelocytes % (Man) 1 H Abs Neuts (Manual) 6.5 Differential Comment . Platelet Estimate Normal Platelet Morphology Normal Dimorphic RBCs Present H Sodium 138 Potassium 4.1 Chloride 104 D Carbon Dioxide 27.2 Anion Gap 7 BUN 30 H Creatinine 0.96 Estimated GFR 74 L POC Glucose Random Glucose 164 H D Calcium 9.2 Phosphorus 3.2 Magnesium 2.1 Total Bilirubin 0.8 AST 28 ALT 36 Alkaline Phosphatase 113 Total Protein 6.5 D Albumin 2.4 L Stl C.difficile Tox PCR Negative St C. diff Tox Epid 027 Negative 11/05/17 11/05/17 11/05/17 11:45 17:54 23:57 WBC RBC Hgb Hct MCV MCH MCHC RDW Plt Count MPV Prelim Diff (Auto) Neut % (Auto) Lymph % (Auto) Stewart % (Auto) Eos % (Auto) Baso % (Auto) Neut # (Auto) Lymph # (Auto) Stewart # (Auto) Eos # (Auto) Baso # (Auto) WBC Differential Seg Neuts % (Manual) Band Neuts % (Manual) Lymphocytes % (Manual) Monocytes % (Manual) Eosinophils % (Manual) Basophils % (Manual) Metamyelocytes % (Man) Myelocytes % (Man) Abs Neuts (Manual) Differential Comment Platelet Estimate Platelet Morphology Dimorphic RBCs Sodium Potassium Chloride Carbon Dioxide Anion Gap BUN Creatinine Estimated GFR POC Glucose 205 H 103 148 H Random Glucose Calcium Phosphorus Magnesium Total Bilirubin AST ALT Alkaline Phosphatase Total Protein Albumin Stl C.difficile Tox PCR St C. diff Tox Epid 027 11/06/17 06:13 WBC RBC Hgb Hct MCV MCH MCHC RDW Plt Count MPV Prelim Diff (Auto) Neut % (Auto) Lymph % (Auto) Stewart % (Auto) Eos % (Auto) Baso % (Auto) Neut # (Auto) Lymph # (Auto) Stewart # (Auto) Eos # (Auto) Baso # (Auto) WBC Differential Seg Neuts % (Manual) Band Neuts % (Manual) Lymphocytes % (Manual) Monocytes % (Manual) Eosinophils % (Manual) Basophils % (Manual) Metamyelocytes % (Man) Myelocytes % (Man) Abs Neuts (Manual) Differential Comment Platelet Estimate Platelet Morphology Dimorphic RBCs Sodium Potassium Chloride Carbon Dioxide Anion Gap BUN Creatinine Estimated GFR POC Glucose 147 H Random Glucose Calcium Phosphorus Magnesium Total Bilirubin AST ALT Alkaline Phosphatase Total Protein Albumin Stl C.difficile Tox PCR St C. diff Tox Epid 027 Microbiology 11/05/17 09:49 Stool Stool Occult Blood ([facility]) - Final Hemoccult negative - Imaging ITS Impressions GI Procedure 10/18/17 00:00 CONCLUSION: Multiple filling defects are identified in the common bile duct which is distended. Small Bowel X-Ray 10/22/17 00:00 CONCLUSION: Findings suggest a partial mid to distal small bowel obstruction. Abdomen X-Ray 10/22/17 07:00 CONCLUSION: Dilated bowel loops in the left abdomen, unchanged. Gastrostomy Tube Placement 10/28/17 00:00 CONCLUSION: 1. Uncomplicated gastrojejunostomy tube placement as above. Abdomen/Pelvis CT 11/03/17 12:07 CONCLUSION: 1. Since the prior study from 10/19/2017 the area of induration caudal to the pancreas within the fat has significantly progressed and demonstrates more soft tissue density within it and enlarged since that time. The pancreas itself appears intact and findings could represent pancreatitis although somewhat unusual in the pancreas itself is completely intact and normal. Clinical correlation is suggested. 2. Bilateral pleural effusions and bibasilar consolidation/infiltrate worse on the right. Chest X-Ray 11/04/17 00:00 CONCLUSION: Very small right pleural effusion otherwise stable chest without significant lung consolidation. - Procedures ERCP 10/18/2017 IMPRESSIONS: 1. A previously placed ampulla stent was seen extending from the orifice, removed by snare. 2. 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 3. Sphincterotomy done. 4. Ductal sweep with balloon and irrigation removing multiple variable size stones, sludge and debris. 5. Normal inclusion cholangiogram afterward Assessment and Plan - Assessment (1) Pancreatitis Code(s): K85.90 - Acute pancreatitis without necrosis or infection, unspecified Status: Acute (2) Ileus, postoperative Code(s): K91.89 - Other postprocedural complications and disorders of digestive system; K56.7 - Ileus, unspecified Status: Acute - Plan 87 year old male with history of choledocholithiasis and cholangitis status post recent ERCP admitted on 10/[address] A/ P as well as lipase level indicate acute pancreatitis. Course has been complicated by ileus. Pancreatitis, improving Chronic diarrhea s/p ERCP with sphincterotomy and stent removal and stone and sludge removal Feeding tube placement occurred on 10/28/2017 Lipase level improved but remains elevated GI following - repeat CT scan abd/pelvis 11/03 revealed area of induration caudal to the pancreas within the fat has significantly progressed and demonstrates more soft tissue density within it and enlarged since that time. Off TPN. Tolerating clear liquid diet, per GI advanced to low-fat today. Monitor response. Leukocytosis, possibly 2/2 steroid effect Recent PNA, treated with IV Zosyn and Azithromycin 10/20 to 11/02 CT scan abd/pelvis showed bilateral pleural effusions R>L, right lung base consolidation, possible infiltrate left lung base. Patient appears clinically much improved He is afebrile, does not appear septic. Denies loose stools. White count WNL. Chest x-ray shows small right pleural effusion, images reviewed by me. IS at bedside, encouraged use. Acapella Duonebs Continue to monitor respiratory status Supplemental oxygen to maintain 02 sats greater than 92% Partial small bowel obstruction patient having bowel movements CT abd/pelvis 11/03 shows no e/o obstruction monitor Hyponatremia, resolved Na 138 continue to monitor Na level Hypokalemia, resolved s/p repletion Anemia Acute on chronic reviewed iron studies/B12/Folate 10/20 - essentially unremarkable Patient had a transfusion of 2 units packed red blood cells on 10/27/2017. 11/04 Hgb dropped from 8.7 to 7.7. Stool Hemoccult negative. Hemoglobin improved 8.2 today. No e/o active bleeding. Continue to monitor hemoglobin as indicated. Atrial fibrillation First-degree AV block Right bundle branch block Currently rate controlled Follow on telemetry Hyperglycemia, suspect secondary to IV steroids Hgb A1c 5.8 BS improved, 148 this am Continue Accu-Cheks, change to low dose insulin sliding scale Generalized deconditioning Prolonged hospitalization Continue with PT/OT DVT prophylaxis SCDs Heparin sq Discussed Condition With: patient, nursing staff, Dr. Jackson Discharge Planning: Not ready for discharge. Discharge pending clinical improvement, able to tolerate diet, GI clearance. Plan for discharge to [facility] once medically cleared.
[2017-11-06 08:02] LABS: Chol/HDL Ratio 4.36 Ratio; HDL Cholesterol 27.5 mg/dL (40.0-60.0)
[2017-11-06] MEDS: Heparin Central Flush 100 UNIT/ML 5 ML Vial IV.FLUSH SCH (09:06)
[2017-11-06] MEDS: Nystatin Liq 500,000 UNIT/5 ML UDC SWISH-SPIT SCH ×4 (09:07→23:17)
[2017-11-06] MEDS: Senna/Docusate Sodium 8.6/50 MG Tablet PO SCH ×2 (09:13→23:13)
--- NOTE | 2017-11-06 13:17 | P.PNGI ---
Subjective Interval history: Feeling better, tolerating solid foods todat. Physical Exam Vital signs: Vital Signs 11/05/17 16:00 11/05/17 17:34 11/05/17 20:00 Temperature 97.8 F 98.6 F Pulse Rate 100 H 97 H Respiratory Rate 18 18 Blood Pressure 128/59 L 115/56 L Pulse Oximetry 94 L 94 L 95 11/06/17 00:00 11/06/17 04:00 11/06/17 07:31 Temperature 98.3 F 98.5 F 97.4 F L Pulse Rate 76 77 97 H Respiratory Rate 18 18 12 Blood Pressure 139/68 135/70 127/58 L Pulse Oximetry 95 96 93 L 11/06/17 08:00 11/06/17 09:16 Temperature Pulse Rate 95 H Respiratory Rate Blood Pressure Pulse Oximetry 95 Intake & Output 11/05/17 11/06/17 11/06/17 18:59 06:59 18:59 Intake Total 1335 / 1335 Output Total 750 / 750 Balance 585 / 585 Weight 92 kg Intake: IV 375 / 375 MVI-12 Inj 10 ML Folvite Inj 1 375 / 375 MG Sodium Chloride 23.4% Inj 15 MEQ Sodium Acetate Inj 59 MEQ Magnesium Chloride Inj 10 MEQ Calcium Chloride Inj 9 MEQ In TPN Fluid 2 Liter 2,000 ML @ 82 .404 mls/hr IV.SIG DAILY@1999 [facility] Rx#:[id number] Oral 960 / 960 Output: Urine 750 / 750 Other: # Incontinent Voids 3 Date of Last Bowel Movement 11/05/17 - Constitutional no acute distress - Routine HEENT Exam Head: Present: normocephalic Eye: Present: EOMI ENT: Present: mucous membranes moist - Routine Neck Exam Present: supple - Routine Respiratory Exam Present: CTA bilaterally - Routine Cardiovascular Exam Present: RRR, S1, S2 - Routine Abdominal Exam Present: soft, normoactive bowel sounds - Urinary Catheter Management Indwelling Urethral Catheter Cath placed during this visit: yes, but has since been removed by the nurse Reason for continuing: Decision to DC catheter Insertion date: 10/17/17 Insertion time: 17:30 Removal date: 10/25/17 Removal time: 14:38 Condom Cath placed during this visit: no Results - Labs CBC & Chem 7: 11/05/17 07:00 11/05/17 07:00 Laboratory Results - last 24 hr 11/05/17 11/05/17 11/06/17 17:54 23:57 06:13 POC Glucose 103 148 H 147 H Triglycerides Cholesterol LDL Cholesterol, Calc HDL Cholesterol Cholesterol/HDL Ratio Lipase 11/06/17 11/06/17 11/06/17 06:40 06:40 11:24 POC Glucose 194 H Triglycerides 126 Cholesterol 120 LDL Cholesterol, Calc 67 HDL Cholesterol 27.5 L Cholesterol/HDL Ratio 4.36 Lipase 742 H 11/06/17 12:32 POC Glucose 175 H Triglycerides Cholesterol LDL Cholesterol, Calc HDL Cholesterol Cholesterol/HDL Ratio Lipase Microbiology 11/05/17 09:49 Stool Stool Occult Blood ([facility]) - Final Hemoccult negative - Procedures ERCP 10/18/2017 IMPRESSIONS: 1. A previously placed ampulla stent was seen extending from the orifice, removed by snare. 2. 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 3. Sphincterotomy done. 4. Ductal sweep with balloon and irrigation removing multiple variable size stones, sludge and debris. 5. Normal inclusion cholangiogram afterward Assessment and Plan (1) Cholangitis Status: Acute Code(s): K83.0 - Cholangitis (2) Elevated LFTs Status: Acute Code(s): R94.5 - Abnormal results of liver function studies (3) Pancreatitis Status: Acute Code(s): K85.90 - Acute pancreatitis without necrosis or infection, unspecified - Plan Elevated LFTs and pancreatitis with recent ERCP with findings of biliary sludge and bile duct dilatation S/P balloon sweep and plastic stent placement on 10/11- Pt with history of choledocholithiasis and cholangitis. History of cholecystectomy. Complaining of: upper abdominal pain that began at 9pm last night after dinner at 8pm, constant, described as "hunger pains". Denies associated fever, chills, nausea, vomiting. Denies history of pancreatitis. Denies ETOH. CT abdomen and pelvis W IV contrast (10/17) Moderate peripancreatic inflammatory stranding consistent with pancreatitis. Pancreas enhances uniformly and there is no peripancreatic fluid collection at this time. Interval placement of CBD stent with persistent intra and extra hepatic ductal dilatation. Focal adynamic ileus in the proximal jejunum secondary to the peripancreatic inflammatory changes S/P ERCP (10/18) --> A previously placed ampulla stent was seen extending from the orifice, removed by snare. 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 Sphincterotomy done. Ductal sweep with balloon and irrigation removing multiple variable size stones, sludge and debris. Normal inclusion cholangiogram afterward Repeat CT abdomen and pelvis (10/19) --> Consistent with pancreatitis, new dilatation in the distal esophagus, stomach, and proximal small bowel, contrast is seen to reach the colon which could be asymmetric ileus, some degree of obstruction cannot be excluded. Pneumobilia, previously seen biliary duct stent has been removed, CBD is dilated measuring 1.8 cm. 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 Has been started on TPN- GJ placement by IR. Has been having BMs for the past few days, however abdomen has remained distended. (11/04) Pt was started on clear liquids last night after CT. Was tolerating TF at 45 mL/hr until this was turned off because he was started on clear liquids. Remains on TPN. Ileus appears to be resolved, pt with two BMs today, according to RN semi- formed. Plan: Continue clear liquids, advance as tolerated Recommend follow up CT, ? week Wean off of TPN Continue supportive care Further recommendations to follow Pt has been seen and examined by myself and Dr. Nelson and this note is written on his behalf Doing better, still weak, tolerating solid food today. atthe bedside. Lipase improving
[2017-11-07] MEDS: Insulin NovoLOG Aspart Correctional Sugar Inj SQ SCH ×3 (06:17→17:02)
--- NOTE | 2017-11-07 07:39 | P.PN ---
Subjective Interval history: Follow-up on patient with acute pancreatitis. Patient seen and examined. Patient reports he slept better last night. He denies any new medical complaints. States he is tolerating his diet. Denies any nausea, vomiting or abdominal pain. Denies any chest pain or shortness of breath. Denies any fever or chills. Physical Exam Vital signs: Vital Signs 11/06/17 08:00 11/06/17 09:16 11/06/17 12:00 Temperature 98.1 F Pulse Rate 95 H 117 H Respiratory Rate 17 Blood Pressure 117/56 L Pulse Oximetry 95 94 L 11/06/17 16:00 11/06/17 19:00 11/06/17 20:00 Temperature 98.0 F 98.0 F Pulse Rate 97 H 99 H Respiratory Rate 18 16 Blood Pressure 112/60 118/56 L Pulse Oximetry 93 L 94 L 94 L 11/07/17 00:00 11/07/17 02:19 11/07/17 04:00 Temperature 98.4 F 98.2 F Pulse Rate 103 H 97 H Respiratory Rate 17 17 Blood Pressure 117/56 L 125/61 Pulse Oximetry 92 L 89 L 92 L Intake & Output 11/06/17 11/07/17 11/07/17 18:59 06:59 18:59 Intake Total 960 / 960 300 / 300 Output Total 300 / 300 Balance 660 / 660 300 / 300 Intake: Oral 960 / 960 300 / 300 Output: Urine 300 / 300 Other: # Voids 1 # Incontinent Voids 2 # Bowel Movements 1 Narrative: GENERAL: Well-developed well-nourished elderly male patient, INAD, A& Ox3. Awake and alert, sitting up in bed. SKIN: Warm and dry. No generalized rash. HEENT: Atraumatic. Normocephalic. EOMI. sclera anicteric bilaterally. No nasal drainage noted. Airway patent. MMM. NECK: Supple, trachea midline. No lymphadenopathy. CARDIOVASCULAR: Tachycardic without murmurs, gallops, or rubs. RESPIRATORY: Nonlabored. Decreased in both lung bases. Clear to auscultation. GASTROINTESTINAL: Abdomen soft, non-tender, nondistended. Tube feed G AND J TUBE in the anterior abdomen clamped. MUSCULOSKELETAL: No cyanosis, or edema noted. NEURO: Awake and alert. Hard of hearing. Able to move all extremities spontaneously. No focal neurological deficits. Clear speech. PSYCHIATRIC: Calm and cooperative. Appropriate mood and affect. Normal judgment and insight. - Urinary Catheter Management Indwelling Urethral Catheter Cath placed during this visit: yes, but has since been removed by the nurse Reason for continuing: Decision to DC catheter Insertion date: 10/17/17 Insertion time: 17:30 Removal date: 10/25/17 Removal time: 14:38 Condom Cath placed during this visit: no Results - Labs CBC & Chem 7: 11/05/17 07:00 11/05/17 07:00 Laboratory Results - last 24 hr 11/06/17 11/06/17 11/06/17 06:40 06:40 11:24 POC Glucose 194 H Triglycerides 126 Cholesterol 120 LDL Cholesterol, Calc 67 HDL Cholesterol 27.5 L Cholesterol/HDL Ratio 4.36 Lipase 742 H 11/06/17 11/06/17 11/06/17 12:32 16:53 22:34 POC Glucose 175 H 174 H 207 H Triglycerides Cholesterol LDL Cholesterol, Calc HDL Cholesterol Cholesterol/HDL Ratio Lipase 11/07/17 06:16 POC Glucose 126 H Triglycerides Cholesterol LDL Cholesterol, Calc HDL Cholesterol Cholesterol/HDL Ratio Lipase - Imaging Abdomen X-Ray 10/17/17 03:49 CONCLUSION: 1. No significant free intraperitoneal air. Abdomen/Pelvis CT 10/17/17 03:49 CONCLUSION: 1. Moderate peripancreatic inflammatory stranding consistent with pancreatitis. Pancreas enhances uniformly and there is no peripancreatic fluid collection at this time. 2. Interval placement of CBD stent with persistent intra and extra hepatic ductal dilatation. 3. Focal adynamic ileus in the proximal jejunum secondary to the peripancreatic inflammatory changes. 4. Stable additional ancillary findings, as above. Chest X-Ray 10/18/17 00:00 CONCLUSION: Pacemaker with moderate compensated cardiomegaly. I don't see significant failure. GI Procedure 10/18/17 00:00 CONCLUSION: Multiple filling defects are identified in the common bile duct which is distended. Abdomen/Pelvis CT 10/19/17 00:00 CONCLUSION: 1. Induration in the mesentery and abutting the undersurface of the pancreas. There is also induration in the posterior right pararenal space. This distribution is most suggestive of pancreatitis. 2. New dilatation the distal esophagus, stomach, and proximal small bowel. Contrast is seen to reach the colon. This could be a asymmetric ileus. Some degree of obstruction cannot be excluded. 3. Mild bilateral pleural effusions with accompanying areas of atelectasis or consolidation being worse on the right. 4. Pneumobilia. The previously seen biliary duct stent has been removed. The common bile duct is dilated measuring 1.8 cm. The patient is status post cholecystectomy. Abdomen X-Ray 10/19/17 10:44 CONCLUSION: No radiographic evidence of ileus or bowel obstruction. No evidence of free air. Abdomen X-Ray 10/20/17 06:00 CONCLUSION: Nasogastric tube tip not clearly seen. Mildly distended bowel loop in the left lower quadrant. Otherwise nonspecific Chest X-Ray 10/20/17 06:00 CONCLUSION: Slight interval worsening in aeration Abdomen X-Ray 10/21/17 00:00 CONCLUSION: Dilated bowel in the left mid abdomen. It is not clear if this is colon or small bowel but may represent small intestine dilatation. This has increased from the prior study. Given the appearance on prior CT from 2 days ago this could represent some degree of small bowel obstruction. Therefore, suggest attention to this at follow-up imaging. Small Bowel X-Ray 10/22/17 00:00 CONCLUSION: Findings suggest a partial mid to distal small bowel obstruction. Abdomen X-Ray 10/22/17 07:00 CONCLUSION: Dilated bowel loops in the left abdomen, unchanged. Chest X-Ray 10/23/17 03:34 CONCLUSION: Bilateral mostly basilar airspace disease and pleural effusions similar to October 20. Cardiomegaly. NG tip near GE junction with side port in distal esophagus. Gastrostomy Tube Placement 10/28/17 00:00 CONCLUSION: 1. Uncomplicated gastrojejunostomy tube placement as above. Abdomen/Pelvis CT 11/03/17 12:07 CONCLUSION: 1. Since the prior study from 10/19/2017 the area of induration caudal to the pancreas within the fat has significantly progressed and demonstrates more soft tissue density within it and enlarged since that time. The pancreas itself appears intact and findings could represent pancreatitis although somewhat unusual in the pancreas itself is completely intact and normal. Clinical correlation is suggested. 2. Bilateral pleural effusions and bibasilar consolidation/infiltrate worse on the right. Chest X-Ray 11/04/17 00:00 CONCLUSION: Very small right pleural effusion otherwise stable chest without significant lung consolidation. - Procedures ERCP 10/18/2017 IMPRESSIONS: 1. A previously placed ampulla stent was seen extending from the orifice, removed by snare. 2. 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 3. Sphincterotomy done. 4. Ductal sweep with balloon and irrigation removing multiple variable size stones, sludge and debris. 5. Normal inclusion cholangiogram afterward Assessment and Plan - Assessment (1) Pancreatitis Code(s): K85.90 - Acute pancreatitis without necrosis or infection, unspecified Status: Acute (2) Ileus, postoperative Code(s): K91.89 - Other postprocedural complications and disorders of digestive system; K56.7 - Ileus, unspecified Status: Acute - Plan 87 year old male with history of choledocholithiasis and cholangitis status post recent ERCP admitted on 10/17 with progressive abdominal pain. CT A/ P as well as lipase level indicate acute pancreatitis. Course has been complicated by ileus. Pancreatitis, improving Chronic diarrhea s/p ERCP with sphincterotomy and stent removal and stone and sludge removal Feeding tube placement occurred on 10/28/2017 Lipase level improved but remains elevated GI following - repeat CT scan abd/pelvis 11/03 revealed area of induration caudal to the pancreas within the fat has significantly progressed and demonstrates more soft tissue density within it and enlarged since that time. Off TPN. Tolerating low-fat diet. Discussed with GI, continue to monitor. Leukocytosis, possibly 2/2 steroid effect Recent PNA, treated with IV Zosyn and Azithromycin 10/20 to 11/02 CT scan abd/pelvis showed bilateral pleural effusions R>L, right lung base consolidation, possible infiltrate left lung base. Patient appears clinically much improved He is afebrile, does not appear septic. Denies loose stools. White count WNL. Chest x-ray shows small right pleural effusion, images reviewed by me. IS at bedside, encouraged use. Acapella Duonebs Continue to monitor respiratory status Supplemental oxygen to maintain 02 sats greater than 92% Partial small bowel obstruction patient having bowel movements CT abd/pelvis 11/03 shows no e/o obstruction monitor Hyponatremia, resolved Na 138 continue to monitor Na level Hypokalemia, resolved s/p repletion Anemia Acute on chronic reviewed iron studies/B12/Folate 10/20 - essentially unremarkable Patient had a transfusion of 2 units packed red blood cells on 10/27/2017. 11/04 Hgb dropped from 8.7 to 7.7. Stool Hemoccult negative. Hemoglobin improved 8.2. No e/o active bleeding. Continue to monitor hemoglobin as indicated. Atrial fibrillation First-degree AV block Right bundle branch block Currently rate controlled Follow on telemetry 11/07 patients pacemaker cutting in and out. Have pacemaker interrogated. Hyperglycemia, suspect secondary to IV steroids Hgb A1c 5.8 BS improved, 126 this am Continue Accu-Cheks, change to low dose insulin sliding scale Generalized deconditioning Prolonged hospitalization Continue with PT/OT -possible discharge to [facility] once medically cleared DVT prophylaxis SCDs Heparin sq Discussed Condition With: patient, nursing staff, GI service, Dr. Jackson Discharge Planning: Not ready for discharge. Discharge pending clinical improvement, able to tolerate diet, GI clearance. Plan for discharge to [place] [facility] once medically cleared. Possible d/c to [facility].
[2017-11-07] MEDS: Nystatin Liq 500,000 UNIT/5 ML UDC SWISH-SPIT SCH ×4 (08:46→22:39)
[2017-11-07] MEDS: Heparin Central Flush 100 UNIT/ML 5 ML Vial IV.FLUSH SCH (08:46)
[2017-11-07] MEDS: Senna/Docusate Sodium 8.6/50 MG Tablet PO SCH ×2 (08:46→22:38)
--- NOTE | 2017-11-07 18:05 | P.PNGI ---
Physical Exam Vital signs: Vital Signs 11/06/17 19:00 11/06/17 20:00 11/07/17 00:00 Temperature 98.0 F 98.4 F Pulse Rate 99 H 103 H Respiratory Rate 16 17 Blood Pressure 118/56 L 117/56 L Pulse Oximetry 94 L 94 L 92 L 11/07/17 02:19 11/07/17 04:00 11/07/17 06:49 Temperature 98.2 F Pulse Rate 97 H Respiratory Rate 17 12 Blood Pressure 125/61 Pulse Oximetry 89 L 92 L 11/07/17 07:00 11/07/17 08:00 11/07/17 12:00 Temperature 98.2 F 97.3 F L Pulse Rate 89 106 H Respiratory Rate 16 16 Blood Pressure 121/58 L 117/57 L Pulse Oximetry 93 L 93 L 95 11/07/17 16:00 Temperature 97.5 F L Pulse Rate 106 H Respiratory Rate 16 Blood Pressure 111/67 Pulse Oximetry 92 L Intake & Output 11/06/17 11/07/17 11/07/17 18:59 06:59 18:59 Intake Total 960 / 960 300 / 300 240 / 240 Output Total 300 / 300 Balance 660 / 660 300 / 300 240 / 240 Intake: Oral 960 / 960 300 / 300 240 / 240 Output: Urine 300 / 300 Other: # Voids 1 # Incontinent Voids 2 Date of Last Bowel Movement 11/06/17 # Bowel Movements 1 - Constitutional no acute distress - Routine HEENT Exam Head: Present: normocephalic Eye: Present: EOMI - Routine Neck Exam Present: supple - Routine Cardiovascular Exam Present: RRR - Routine Abdominal Exam Present: soft, normoactive bowel sounds - Urinary Catheter Management Indwelling Urethral Catheter Cath placed during this visit: yes, but has since been removed by the nurse Reason for continuing: Decision to DC catheter Insertion date: 10/17/17 Insertion time: 17:30 Removal date: 10/25/17 Removal time: 14:38 Condom Cath placed during this visit: no Results - Labs CBC & Chem 7: 11/05/17 07:00 11/05/17 07:00 Laboratory Results - last 24 hr 11/06/17 11/07/17 11/07/17 22:34 06:16 07:22 POC Glucose 207 H 126 H 140 H 11/07/17 11/07/17 11:05 16:20 POC Glucose 236 H 101 - Procedures ERCP 10/18/2017 IMPRESSIONS: 1. A previously placed ampulla stent was seen extending from the orifice, removed by snare. 2. 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 3. Sphincterotomy done. 4. Ductal sweep with balloon and irrigation removing multiple variable size stones, sludge and debris. 5. Normal inclusion cholangiogram afterward Assessment and Plan (1) Cholangitis Status: Acute Code(s): K83.0 - Cholangitis (2) Elevated LFTs Status: Acute Code(s): R94.5 - Abnormal results of liver function studies (3) Pancreatitis Status: Acute Code(s): K85.90 - Acute pancreatitis without necrosis or infection, unspecified - Plan Seen and examined in the presence of . Doing better, tolerating po diet. Will dc pick line and G/J tube tomorrow. Possible transfer to [facility].
[2017-11-08] MEDS: Insulin NovoLOG Aspart Correctional Sugar Inj SQ SCH ×4 (00:12→19:05)
[2017-11-08 06:59] LABS: Baso # (Auto) 0.1 th/mm3 (0.0-0.2); Baso % (Auto) 1.3 % (0.0-2.0); Eos # (Auto) 0.4 th/mm3 (0.0-0.4); Eos % (Auto) 5.5 % (0.0-4.0); Hematocrit 22.3 % (39.0-51.0); Hemoglobin 7.4 gm/dL (13.0-17.0); Lymph # (Auto) 1.7 th/mm3 (1.0-4.8); Lymph % (Auto) 22.8 % (9.0-44.0); Mean Corpuscular Hemoglobin 33.4 pg (27.0-34.0); Mean Corpuscular Volume 101.3 fL (80.0-100.0); Mean Platelet Volume 9.2 fL (7.0-11.0); Mono # (Auto) 0.6 th/mm3 (0.0-0.9); Mono % (Auto) 8.2 % (0.0-8.0); Neut # (Auto) 4.7 th/mm3 (1.8-7.7); Neut % (Auto) 62.2 % (16.0-70.0); Platelet Count 208 th/mm3 (150-450); White Blood Count 7.5 th/mm3 (4.0-11.0)
[2017-11-08 07:15] LABS: Albumin 2.3 g/dL (3.4-5.0); Anion Gap 6 meq/L (5-15); Aspartate Aminotransferase 27 U/L (15-37); Blood Urea Nitrogen 15 mg/dL (7-18); Calcium 8.9 mg/dL (8.5-10.1); Carbon Dioxide 27.6 meq/L (21.0-32.0); Chloride 104 meq/L (98-107); Glomerular Filtration Rate 75 mL/min (>89); Glucose,Random 115 mg/dL (74-106); Magnesium 1.7 mg/dL (1.5-2.5); Potassium 3.8 meq/L (3.5-5.1); Sodium 138 meq/L (136-145)
[2017-11-08 07:16] LABS: Alanine Aminotransferase 31 U/L (12-78)
[2017-11-08 07:18] LABS: Alkaline Phosphatase 106 U/L (45-117); Total Protein 6.3 g/dL (6.4-8.2)
[2017-11-08 08:20] LABS: Ovalocytes 1+; Platelet Estimate Normal (Normal); Platelet Morphology Normal (Normal); Tear Drop Cells 1+
[2017-11-08] MEDS: Heparin Central Flush 100 UNIT/ML 5 ML Vial IV.FLUSH SCH (09:42)
[2017-11-08] MEDS: Senna/Docusate Sodium 8.6/50 MG Tablet PO SCH ×2 (09:43→22:55)
[2017-11-08] MEDS: Nystatin Liq 500,000 UNIT/5 ML UDC SWISH-SPIT SCH ×4 (09:43→22:56)
--- NOTE | 2017-11-08 12:03 | P.PN ---
Subjective Interval history: Follow-up on patient with acute pancreatitis. Patient seen and examined. Patient states he is doing well. He has no new medical complaints. He denies any fever or chills. He denies any nausea, vomiting, chest pain, shortness of breath or abdominal pain. Discussed with nursing staff, no acute issues noted. Physical Exam Vital signs: Vital Signs 11/07/17 12:00 11/07/17 16:00 11/07/17 20:00 Temperature 97.3 F L 97.5 F L 98 F Pulse Rate 106 H 106 H 113 H Respiratory Rate 16 16 16 Blood Pressure 117/57 L 111/67 117/67 Pulse Oximetry 95 92 L 95 11/07/17 23:51 11/08/17 00:00 11/08/17 04:00 Temperature 98.1 F 98.1 F Pulse Rate 69 109 H 98 H Respiratory Rate 16 14 Blood Pressure 117/64 119/56 L Pulse Oximetry 94 L 94 L 11/08/17 09:04 Temperature 98.7 F Pulse Rate 70 Respiratory Rate 19 Blood Pressure 133/60 Pulse Oximetry 96 Intake & Output 11/07/17 11/08/17 11/08/17 18:59 06:59 18:59 Intake Total 240 / 240 452 / 452 Output Total 400 / 400 Balance 240 / 240 52 / 52 Weight 88.4 kg Intake: Oral 240 / 240 442 / 442 Other Output: Urine 400 / 400 Other: # Incontinent Voids 1 Date of Last Bowel Movement 11/06/17 11/06/17 Narrative: GENERAL: Well-developed well-nourished elderly male patient, INAD, A& Ox3. Asleep in bed, easily awakens to voice. OSAGE. SKIN: Warm and dry. No generalized rash. HEENT: Atraumatic. Normocephalic. EOMI. sclera anicteric bilaterally. No nasal drainage noted. Airway patent. MMM. NECK: Supple, trachea midline. No lymphadenopathy. CARDIOVASCULAR: Regular rate and rhythm without murmurs, gallops, or rubs. RESPIRATORY: Nonlabored. Decreased in both lung bases. Clear to auscultation. GASTROINTESTINAL: Abdomen soft, non-tender, nondistended. Tube feed G AND J TUBE in the anterior abdomen clamped. MUSCULOSKELETAL: No cyanosis, or edema noted. NEURO: Awake and alert. Hard of hearing. Able to move all extremities spontaneously. Motor function grossly intact. No focal neurological deficits. Clear speech. PSYCHIATRIC: Calm and cooperative. Appropriate mood and affect. Normal judgment and insight. - Urinary Catheter Management Indwelling Urethral Catheter Cath placed during this visit: yes, but has since been removed by the nurse Reason for continuing: Decision to DC catheter Insertion date: 10/17/17 Insertion time: 17:30 Removal date: 10/25/17 Removal time: 14:38 Condom Cath placed during this visit: no Results - Labs CBC & Chem 7: 11/08/17 06:30 11/08/17 06:30 Laboratory Results - last 24 hr 11/07/17 11/08/17 11/08/17 16:20 00:09 05:39 WBC RBC Hgb Hct MCV MCH MCHC RDW Plt Count MPV Prelim Diff (Auto) Neut % (Auto) Lymph % (Auto) [place] % (Auto) Eos % (Auto) Baso % (Auto) Neut # (Auto) Lymph # (Auto) [place] # (Auto) Eos # (Auto) Baso # (Auto) WBC Differential Diff Scan Differential Comment Platelet Estimate Platelet Morphology Tear Drop Cells Ovalocytes Sodium Potassium Chloride Carbon Dioxide Anion Gap BUN Creatinine Estimated GFR POC Glucose 101 215 H 113 H Random Glucose Calcium Phosphorus Magnesium Total Bilirubin AST ALT Alkaline Phosphatase Total Protein Albumin 11/08/17 11/08/17 06:30 06:30 WBC 7.5 RBC 2.20 L Hgb 7.4 L Hct 22.3 L MCV 101.3 H MCH 33.4 MCHC 33.0 RDW 26.0 H Plt Count 208 MPV 9.2 Prelim Diff (Auto) Slide review pending Neut % (Auto) 62.2 Lymph % (Auto) 22.8 [place] % (Auto) 8.2 H Eos % (Auto) 5.5 H Baso % (Auto) 1.3 Neut # (Auto) 4.7 Lymph # (Auto) 1.7 [place] # (Auto) 0.6 Eos # (Auto) 0.4 Baso # (Auto) 0.1 WBC Differential . Diff Scan Auto diff confirmed Differential Comment . Platelet Estimate Normal Platelet Morphology Normal Tear Drop Cells 1+ H Ovalocytes 1+ H Sodium 138 Potassium 3.8 Chloride 104 Carbon Dioxide 27.6 Anion Gap 6 BUN 15 Creatinine 0.95 Estimated GFR 75 L POC Glucose Random Glucose 115 H Calcium 8.9 Phosphorus 3.0 Magnesium 1.7 Total Bilirubin 0.9 AST 27 ALT 31 Alkaline Phosphatase 106 Total Protein 6.3 L Albumin 2.3 L - Imaging Abdomen X-Ray 10/17/17 03:49 CONCLUSION: 1. No significant free intraperitoneal air. Abdomen/Pelvis CT 10/17/17 03:49 CONCLUSION: 1. Moderate peripancreatic inflammatory stranding consistent with pancreatitis. Pancreas enhances uniformly and there is no peripancreatic fluid collection at this time. 2. Interval placement of CBD stent with persistent intra and extra hepatic ductal dilatation. 3. Focal adynamic ileus in the proximal jejunum secondary to the peripancreatic inflammatory changes. 4. Stable additional ancillary findings, as above. Chest X-Ray 10/18/17 00:00 CONCLUSION: Pacemaker with moderate compensated cardiomegaly. I don't see significant failure. GI Procedure 10/18/17 00:00 CONCLUSION: Multiple filling defects are identified in the common bile duct which is distended. Abdomen/Pelvis CT 10/19/17 00:00 CONCLUSION: 1. Induration in the mesentery and abutting the undersurface of the pancreas. There is also induration in the posterior right pararenal space. This distribution is most suggestive of pancreatitis. 2. New dilatation the distal esophagus, stomach, and proximal small bowel. Contrast is seen to reach the colon. This could be a asymmetric ileus. Some degree of obstruction cannot be excluded. 3. Mild bilateral pleural effusions with accompanying areas of atelectasis or consolidation being worse on the right. 4. Pneumobilia. The previously seen biliary duct stent has been removed. The common bile duct is dilated measuring 1.8 cm. The patient is status post cholecystectomy. Abdomen X-Ray 10/19/17 10:44 CONCLUSION: No radiographic evidence of ileus or bowel obstruction. No evidence of free air. Abdomen X-Ray 10/20/17 06:00 CONCLUSION: Nasogastric tube tip not clearly seen. Mildly distended bowel loop in the left lower quadrant. Otherwise nonspecific Chest X-Ray 10/20/17 06:00 CONCLUSION: Slight interval worsening in aeration Abdomen X-Ray 10/21/17 00:00 CONCLUSION: Dilated bowel in the left mid abdomen. It is not clear if this is colon or small bowel but may represent small intestine dilatation. This has increased from the prior study. Given the appearance on prior CT from 2 days ago this could represent some degree of small bowel obstruction. Therefore, suggest attention to this at follow-up imaging. Small Bowel X-Ray 10/22/17 00:00 CONCLUSION: Findings suggest a partial mid to distal small bowel obstruction. Abdomen X-Ray 10/22/17 07:00 CONCLUSION: Dilated bowel loops in the left abdomen, unchanged. Chest X-Ray 10/23/17 03:34 CONCLUSION: Bilateral mostly basilar airspace disease and pleural effusions similar to October 20. Cardiomegaly. NG tip near GE junction with side port in distal esophagus. Gastrostomy Tube Placement 10/28/17 00:00 CONCLUSION: 1. Uncomplicated gastrojejunostomy tube placement as above. Abdomen/Pelvis CT 11/03/17 12:07 CONCLUSION: 1. Since the prior study from 10/19/2017 the area of induration caudal to the pancreas within the fat has significantly progressed and demonstrates more soft tissue density within it and enlarged since that time. The pancreas itself appears intact and findings could represent pancreatitis although somewhat unusual in the pancreas itself is completely intact and normal. Clinical correlation is suggested. 2. Bilateral pleural effusions and bibasilar consolidation/infiltrate worse on the right. Chest X-Ray 11/04/17 00:00 CONCLUSION: Very small right pleural effusion otherwise stable chest without significant lung consolidation. - Procedures ERCP 10/18/2017 IMPRESSIONS: 1. A previously placed ampulla stent was seen extending from the orifice, removed by snare. 2. 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 3. Sphincterotomy done. 4. Ductal sweep with balloon and irrigation removing multiple variable size stones, sludge and debris. 5. Normal inclusion cholangiogram afterward Assessment and Plan - Assessment (1) Pancreatitis Code(s): K85.90 - Acute pancreatitis without necrosis or infection, unspecified Status: Acute (2) Ileus, postoperative Code(s): K91.89 - Other postprocedural complications and disorders of digestive system; K56.7 - Ileus, unspecified Status: Acute (3) Hyperglycemia Code(s): R73.9 - Hyperglycemia, unspecified Status: Acute (4) Hypokalemia Code(s): E87.6 - Hypokalemia Status: Acute (5) Hyponatremia Code(s): E87.1 - Hypo-osmolality and hyponatremia Status: Acute (6) Atrial fibrillation Code(s): I48.91 - Unspecified atrial fibrillation Status: Acute (7) Macrocytic anemia Code(s): D53.9 - Nutritional anemia, unspecified Status: Acute (8) Cholangitis Code(s): K83.0 - Cholangitis Status: Acute - Plan 87 year old male with history of choledocholithiasis and cholangitis status post recent ERCP admitted on 10/17 with progressive abdominal pain. CT A/ P as well as lipase level indicate acute pancreatitis. Course has been complicated by ileus. Pancreatitis, improving Chronic diarrhea s/p ERCP with sphincterotomy and stent removal and stone and sludge removal Feeding tube placement occurred on 10/28/2017 Lipase level improved but remains elevated. Patient tolerating po diet. Off TPN. Asymptomatic. GI following - plan to d/c PICC line and G/J tube possibly today Leukocytosis, possibly 2/2 steroid effect, resolved Recent PNA, treated with IV Zosyn and Azithromycin 10/20 to 11/02 Patient appears clinically much improved He is afebrile, does not appear septic. White count WNL. IS at bedside, encouraged use. Lanllcan Sanchez Continue to monitor respiratory status Supplemental oxygen to maintain 02 sats greater than 92% Macrocytic Anemia, acute on chronic B12 level 682 Folate greater than 20 s/p transfusion 2u PRBCs 10/27. Hgb dropped from 8.2 to 7.4. No e/o active bleeding. Stool hemoccult neg 11/05. Iron studies 10/20 reviewed Transfuse 1 unit PRBCs now. Repeat H/H in am. monitor Partial small bowel obstruction, resolved patient having bowel movements CT abd/pelvis 11/03 shows no e/o obstruction monitor Atrial fibrillation First-degree AV block Right bundle branch block Currently rate controlled Follow on telemetry 11/07 patients pacemaker cutting in and out. Pacemaker interrogated, normal function, episode of A. fib lasting 1 hour 11/06 [id number] score 2. Patient is not on any anticoagulation. Unable to take ASA 2/2 allergy Hyperglycemia, suspect secondary to IV steroids Hgb A1c 5.8 BS improved Continue Accu-Cheks and low dose insulin sliding scale Generalized deconditioning Prolonged hospitalization Continue with PT/OT -possible discharge to [facility] once medically cleared DVT prophylaxis SCDs Heparin sq Discussed Condition With: patient, nursing staff, Katherine CASTILLO liaison for [facility] Discharge Planning: Not ready for discharge. Discharge pending clinical improvement, able to tolerate diet, GI clearance. Plan for discharge to [facility] once medically cleared. Possible d/c to [facility]. Will set up peer to peer for auth with [employer].
[2017-11-08] MEDS ORDERED: Sodium Chlor 0.9% Inj 250 ML IV.SIG SCH (13:00)
--- NOTE | 2017-11-08 16:41 | P.DIET ---
Nutritional Evaluation Type of nutrition evaluation: follow-up Nutrition consult regarding: TPN/PPN Nutrition [place] [facility] [place] Subjective Subjective Comments: Pt visited; Pt's at bedside. Pt and his report pt is tolerating diet. Objective - Diagnosis Acute Pancreatitis, Recent ERCP - Objective % IBW: 118 (IBW = 178#) Body Weight Used for Calculations: Actual (95.7 kg) Energy Needs - Lower Range (kCal/kg): 25 Energy Needs - Upper Range (kCal/kg): 30 Lower Limit kCal/kg (kCals): 2,393 Upper Limit kCal/kg (kCals): 2,871 Lower Limit Protein Factor (Grams per Kg): 1.0 Upper Limit Protein Factor (Grams per Kg): 1.5 Lower Protein Needs (Protein): 96 Upper Protein Needs (Protein): 144 Dietitian Reviewed in Medical Record: Current diet, Curent medications, Intake & Output, Labs, Medical history Diet Order: Cardiac Soft Diet Oral Diet Intake Amount: Fair 50-75% Objective Comments: Accucheck 215, 113, lipase 742 +BM Feeding - Current TPN/PPN Current TPN/PPN Rate (ml/hr): 42 Amino Acid and Dextrose Current kCals Provided: 340 Amino Acid and Dextrose Current Protein Provided: 43 (gms) Current Lipid Concentration: 20% Current Lipids Rate: 250 mls daily over 8 hours Current kCal Provided by TPN/PPN: 1,180 Assessment Assessment: Pt at ongoing nutrition risk r/t diagnosis and previous need for nutrition support. TPN discontinued and diet advanced. Adequate po intake 50% or greater for meals. Labs reviewed. Wt changes noted. Dietitian following. Recommendations: 1. Adequate po intake 50% or greater for meals 2. Dietitian following Dietitian to Monitor: Lab values, Glucose level, Intake & Output, Diet tolerance , Weight change, PO Intake, Medical course
--- NOTE | 2017-11-08 17:40 | P.PNGI ---
Physical Exam Vital signs: Vital Signs 11/07/17 20:00 11/07/17 23:51 11/08/17 00:00 Temperature 98 F 98.1 F Pulse Rate 113 H 69 109 H Respiratory Rate 16 16 Blood Pressure 117/67 117/64 Pulse Oximetry 95 94 L 11/08/17 04:00 11/08/17 09:04 11/08/17 13:18 Temperature 98.1 F 98.7 F 97.8 F Pulse Rate 98 H 70 110 H Respiratory Rate 14 19 16 Blood Pressure 119/56 L 133/60 125/57 L Pulse Oximetry 94 L 96 95 11/08/17 16:41 11/08/17 16:55 Temperature 97.8 F 97 F L Pulse Rate 101 H 100 H Respiratory Rate 16 18 Blood Pressure 124/60 131/66 Pulse Oximetry 95 96 Intake & Output 11/07/17 11/08/17 11/08/17 18:59 06:59 18:59 Intake Total 240 / 240 452 / 452 0 / 0 Output Total 400 / 400 Balance 240 / 240 52 / 52 0 / 0 Weight 88.4 kg Intake: Oral 240 / 240 442 / 442 Other 10 / 10 Intake (Blood Product) Amt 0 / 0 Rbc As-3 Leukoreduced Unit 0 / 0 [id number] Output: Urine 400 / 400 Other: # Incontinent Voids 1 Date of Last Bowel Movement 11/06/17 11/06/17 - Constitutional no acute distress - Routine HEENT Exam Head: Present: normocephalic Eye: Present: EOMI ENT: Present: mucous membranes moist - Routine Neck Exam Present: supple - Routine Respiratory Exam Present: CTA bilaterally - Urinary Catheter Management Indwelling Urethral Catheter Cath placed during this visit: yes, but has since been removed by the nurse Reason for continuing: Decision to DC catheter Insertion date: 10/17/17 Insertion time: 17:30 Removal date: 10/25/17 Removal time: 14:38 Condom Cath placed during this visit: no Results - Labs CBC & Chem 7: 11/08/17 06:30 11/08/17 06:30 Laboratory Results - last 24 hr 10/27/17 11/08/17 11/08/17 06:50 00:09 05:39 WBC RBC Hgb Hct MCV MCH MCHC RDW Plt Count MPV Prelim Diff (Auto) Neut % (Auto) Lymph % (Auto) Pepin % (Auto) Eos % (Auto) Baso % (Auto) Neut # (Auto) Lymph # (Auto) Pepin # (Auto) Eos # (Auto) Baso # (Auto) WBC Differential Diff Scan Differential Comment Platelet Estimate Platelet Morphology Tear Drop Cells Ovalocytes Sodium Potassium Chloride Carbon Dioxide Anion Gap BUN Creatinine Estimated GFR POC Glucose 215 H 113 H Random Glucose Calcium Phosphorus Magnesium Total Bilirubin AST ALT Alkaline Phosphatase Total Protein Albumin Blood Type Blood Type Recheck Antibody Screen MTS Gel Crossmatch See Detail 11/08/17 11/08/17 11/08/17 06:30 06:30 13:00 WBC 7.5 RBC 2.20 L Hgb 7.4 L Hct 22.3 L MCV 101.3 H MCH 33.4 MCHC 33.0 RDW 26.0 H Plt Count 208 MPV 9.2 Prelim Diff (Auto) Slide review pending Neut % (Auto) 62.2 Lymph % (Auto) 22.8 Pepin % (Auto) 8.2 H Eos % (Auto) 5.5 H Baso % (Auto) 1.3 Neut # (Auto) 4.7 Lymph # (Auto) 1.7 Pepin # (Auto) 0.6 Eos # (Auto) 0.4 Baso # (Auto) 0.1 WBC Differential . Diff Scan Auto diff confirmed Differential Comment . Platelet Estimate Normal Platelet Morphology Normal Tear Drop Cells 1+ H Ovalocytes 1+ H Sodium 138 Potassium 3.8 Chloride 104 Carbon Dioxide 27.6 Anion Gap 6 BUN 15 Creatinine 0.95 Estimated GFR 75 L POC Glucose Random Glucose 115 H Calcium 8.9 Phosphorus 3.0 Magnesium 1.7 Total Bilirubin 0.9 AST 27 ALT 31 Alkaline Phosphatase 106 Total Protein 6.3 L Albumin 2.3 L Blood Type O Positive Blood Type Recheck Not needed Antibody Screen Negative MTS Gel Crossmatch See Detail 11/08/17 11/08/17 13:00 13:09 WBC RBC Hgb Hct MCV MCH MCHC RDW Plt Count MPV Prelim Diff (Auto) Neut % (Auto) Lymph % (Auto) Pepin % (Auto) Eos % (Auto) Baso % (Auto) Neut # (Auto) Lymph # (Auto) Pepin # (Auto) Eos # (Auto) Baso # (Auto) WBC Differential Diff Scan Differential Comment Platelet Estimate Platelet Morphology Tear Drop Cells Ovalocytes Sodium Potassium Chloride Carbon Dioxide Anion Gap BUN Creatinine Estimated GFR POC Glucose 195 H Random Glucose Calcium Phosphorus Magnesium Total Bilirubin AST ALT Alkaline Phosphatase Total Protein Albumin Blood Type Cancelled Blood Type Recheck Cancelled Antibody Screen Cancelled MTS Gel Crossmatch - Procedures ERCP 10/18/2017 IMPRESSIONS: 1. A previously placed ampulla stent was seen extending from the orifice, removed by snare. 2. 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 3. Sphincterotomy done. 4. Ductal sweep with balloon and irrigation removing multiple variable size stones, sludge and debris. 5. Normal inclusion cholangiogram afterward Assessment and Plan (1) Cholangitis Status: Acute Code(s): K83.0 - Cholangitis (2) Elevated LFTs Status: Acute Code(s): R94.5 - Abnormal results of liver function studies (3) Pancreatitis Status: Acute Code(s): K85.90 - Acute pancreatitis without necrosis or infection, unspecified - Plan Seen and examined with . Receiving 1 unit of PRBC for drop in H/H . No bleeding. Can remove G/J, will talk to radiology. PO diet as tolerated. repeat CT next week
[2017-11-08 22:07] LABS: Hematocrit 26.4 % (39.0-51.0); Hemoglobin 8.9 gm/dL (13.0-17.0)
[2017-11-09] MEDS: Insulin NovoLOG Aspart Correctional Sugar Inj SQ SCH ×4 (00:14→17:19)
[2017-11-09 07:00] LABS: Hematocrit 26.1 % (39.0-51.0); Hemoglobin 8.7 gm/dL (13.0-17.0); Mean Corpuscular HGB Conc 33.3 % (32.0-36.0); Mean Corpuscular Volume 96.1 fL (80.0-100.0); Platelet Count 215 th/mm3 (150-450); Red Blood Count 2.72 mil/mm3 (4.50-5.90); Red Cell Distribution Width 29.1 % (11.6-17.2); White Blood Count 8.2 th/mm3 (4.0-11.0)
--- NOTE | 2017-11-09 08:07 | P.PN ---
Subjective Interval history: Follow-up on patient with acute pancreatitis. Patient seen and examined. Patient complains of itchy rash on back. Otherwise he has no new medical complaints. He is tolerating his diet well. Denies any nausea vomiting or abdominal pain. Discussed with nursing staff, no acute issues noted. Physical Exam Vital signs: Vital Signs 11/08/17 09:04 11/08/17 13:18 11/08/17 16:41 Temperature 98.7 F 97.8 F 97.8 F Pulse Rate 70 110 H 101 H Respiratory Rate 19 16 16 Blood Pressure 133/60 125/57 L 124/60 Pulse Oximetry 96 95 95 11/08/17 16:55 11/08/17 19:00 11/08/17 20:00 Temperature 97 F L 98.4 F Pulse Rate 100 H 102 H Respiratory Rate 18 18 Blood Pressure 131/66 110/68 Pulse Oximetry 96 96 97 11/08/17 20:11 11/09/17 00:00 11/09/17 04:00 Temperature 99.1 F 97.0 F L 97.8 F Pulse Rate 109 H 104 H 97 H Respiratory Rate 18 18 16 Blood Pressure 110/68 99/58 L 108/57 L Pulse Oximetry 92 L 94 L 94 L Intake & Output 11/08/17 11/09/17 11/09/17 18:59 06:59 18:59 Intake Total 720 / 720 640 / 640 Output Total 1100 / 1100 500 / 500 Balance -380 / -380 140 / 140 Weight 88.7 kg Intake: Oral 720 / 720 240 / 240 Intake (Blood Product) Amt 0 / 0 400 / 400 Rbc As-3 Leukoreduced Unit 0 / 0 400 / 400 [id number] Output: Urine 1100 / 1100 500 / 500 Other: Date of Last Bowel Movement 11/08/17 11/08/17 11/08/17 # Bowel Movements 1 Narrative: GENERAL: Well-developed well-nourished elderly male patient, INAD. Awake and alert. is at the bedside. SKIN: Warm and dry. Erythematous papular rash on back. HEENT: Atraumatic. Normocephalic. EOMI. sclera anicteric bilaterally. No nasal drainage noted. Airway patent. MMM. NECK: Supple, trachea midline. No lymphadenopathy. CARDIOVASCULAR: Regular rate and rhythm without murmurs, gallops, or rubs. RESPIRATORY: Nonlabored. Decreased in both lung bases. Clear to auscultation. GASTROINTESTINAL: Abdomen soft, non-tender, nondistended. Tube feed G AND J TUBE in the anterior abdomen clamped. MUSCULOSKELETAL: No cyanosis, or edema noted. NEURO: Awake and alert. Hard of hearing. Able to move all extremities spontaneously. Motor function grossly intact. No focal neurological deficits. Clear speech. PSYCHIATRIC: Calm and cooperative. Appropriate mood and affect. Normal judgment and insight. - Urinary Catheter Management Indwelling Urethral Catheter Cath placed during this visit: yes, but has since been removed by the nurse Reason for continuing: Decision to DC catheter Insertion date: 10/17/17 Insertion time: 17:30 Removal date: 10/25/17 Removal time: 14:38 Condom Cath placed during this visit: no Results - Labs CBC & Chem 7: 11/09/17 06:25 11/08/17 06:30 Laboratory Results - last 24 hr 10/27/17 11/08/17 11/08/17 06:50 06:30 13:00 WBC RBC Hgb Hct MCV MCH MCHC RDW Plt Count MPV WBC Differential . Diff Scan Auto diff confirmed Platelet Estimate Normal Platelet Morphology Normal Tear Drop Cells 1+ H Ovalocytes 1+ H POC Glucose Blood Type O Positive Blood Type Recheck Not needed Antibody Screen Negative MTS Gel Crossmatch See Detail See Detail 11/08/17 11/08/17 11/08/17 13:00 13:09 19:02 WBC RBC Hgb Hct MCV MCH MCHC RDW Plt Count MPV WBC Differential Diff Scan Platelet Estimate Platelet Morphology Tear Drop Cells Ovalocytes POC Glucose 195 H 162 H Blood Type Cancelled Blood Type Recheck Cancelled Antibody Screen Cancelled MTS Gel Crossmatch 11/08/17 11/09/17 11/09/17 21:56 00:11 06:25 WBC 8.2 RBC 2.72 L Hgb 8.9 L 8.7 L Hct 26.4 L 26.1 L MCV 96.1 D MCH 32.0 MCHC 33.3 RDW 29.1 H D Plt Count 215 MPV 9.0 WBC Differential Diff Scan Platelet Estimate Platelet Morphology Tear Drop Cells Ovalocytes POC Glucose 155 H Blood Type Blood Type Recheck Antibody Screen MTS Gel Crossmatch 11/09/17 06:31 WBC RBC Hgb Hct MCV MCH MCHC RDW Plt Count MPV WBC Differential Diff Scan Platelet Estimate Platelet Morphology Tear Drop Cells Ovalocytes POC Glucose 130 H Blood Type Blood Type Recheck Antibody Screen MTS Gel Crossmatch - Imaging Abdomen X-Ray 10/17/17 03:49 CONCLUSION: 1. No significant free intraperitoneal air. Abdomen/Pelvis CT 10/17/17 03:49 CONCLUSION: 1. Moderate peripancreatic inflammatory stranding consistent with pancreatitis. Pancreas enhances uniformly and there is no peripancreatic fluid collection at this time. 2. Interval placement of CBD stent with persistent intra and extra hepatic ductal dilatation. 3. Focal adynamic ileus in the proximal jejunum secondary to the peripancreatic inflammatory changes. 4. Stable additional ancillary findings, as above. Chest X-Ray 10/18/17 00:00 CONCLUSION: Pacemaker with moderate compensated cardiomegaly. I don't see significant failure. GI Procedure 10/18/17 00:00 CONCLUSION: Multiple filling defects are identified in the common bile duct which is distended. Abdomen/Pelvis CT 10/19/17 00:00 CONCLUSION: 1. Induration in the mesentery and abutting the undersurface of the pancreas. There is also induration in the posterior right pararenal space. This distribution is most suggestive of pancreatitis. 2. New dilatation the distal esophagus, stomach, and proximal small bowel. Contrast is seen to reach the colon. This could be a asymmetric ileus. Some degree of obstruction cannot be excluded. 3. Mild bilateral pleural effusions with accompanying areas of atelectasis or consolidation being worse on the right. 4. Pneumobilia. The previously seen biliary duct stent has been removed. The common bile duct is dilated measuring 1.8 cm. The patient is status post cholecystectomy. Abdomen X-Ray 10/19/17 10:44 CONCLUSION: No radiographic evidence of ileus or bowel obstruction. No evidence of free air. Abdomen X-Ray 10/20/17 06:00 CONCLUSION: Nasogastric tube tip not clearly seen. Mildly distended bowel loop in the left lower quadrant. Otherwise nonspecific Chest X-Ray 10/20/17 06:00 CONCLUSION: Slight interval worsening in aeration Abdomen X-Ray 10/21/17 00:00 CONCLUSION: Dilated bowel in the left mid abdomen. It is not clear if this is colon or small bowel but may represent small intestine dilatation. This has increased from the prior study. Given the appearance on prior CT from 2 days ago this could represent some degree of small bowel obstruction. Therefore, suggest attention to this at follow-up imaging. Small Bowel X-Ray 10/22/17 00:00 CONCLUSION: Findings suggest a partial mid to distal small bowel obstruction. Abdomen X-Ray 10/22/17 07:00 CONCLUSION: Dilated bowel loops in the left abdomen, unchanged. Chest X-Ray 10/23/17 03:34 CONCLUSION: Bilateral mostly basilar airspace disease and pleural effusions similar to October 20. Cardiomegaly. NG tip near GE junction with side port in distal esophagus. Gastrostomy Tube Placement 10/28/17 00:00 CONCLUSION: 1. Uncomplicated gastrojejunostomy tube placement as above. Abdomen/Pelvis CT 11/03/17 12:07 CONCLUSION: 1. Since the prior study from 10/19/2017 the area of induration caudal to the pancreas within the fat has significantly progressed and demonstrates more soft tissue density within it and enlarged since that time. The pancreas itself appears intact and findings could represent pancreatitis although somewhat unusual in the pancreas itself is completely intact and normal. Clinical correlation is suggested. 2. Bilateral pleural effusions and bibasilar consolidation/infiltrate worse on the right. Chest X-Ray 11/04/17 00:00 CONCLUSION: Very small right pleural effusion otherwise stable chest without significant lung consolidation. - Procedures ERCP 10/18/2017 IMPRESSIONS: 1. A previously placed ampulla stent was seen extending from the orifice, removed by snare. 2. 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 3. Sphincterotomy done. 4. Ductal sweep with balloon and irrigation removing multiple variable size stones, sludge and debris. 5. Normal inclusion cholangiogram afterward Assessment and Plan - Assessment (1) Pancreatitis Code(s): K85.90 - Acute pancreatitis without necrosis or infection, unspecified Status: Acute (2) Ileus, postoperative Code(s): K91.89 - Other postprocedural complications and disorders of digestive system; K56.7 - Ileus, unspecified Status: Acute (3) Hyperglycemia Code(s): R73.9 - Hyperglycemia, unspecified Status: Acute (4) Hypokalemia Code(s): E87.6 - Hypokalemia Status: Acute (5) Hyponatremia Code(s): E87.1 - Hypo-osmolality and hyponatremia Status: Acute (6) Atrial fibrillation Code(s): I48.91 - Unspecified atrial fibrillation Status: Acute (7) Macrocytic anemia Code(s): D53.9 - Nutritional anemia, unspecified Status: Acute (8) Cholangitis Code(s): K83.0 - Cholangitis Status: Acute - Plan 87 year old male with history of choledocholithiasis and cholangitis status post recent ERCP admitted on 10/[address] with [address] abdominal pain. CT A/ P as well as lipase level indicate acute pancreatitis. Course has been complicated by ileus. Pancreatitis, improving Chronic diarrhea s/p ERCP with sphincterotomy and stent removal and stone and sludge removal Feeding tube placement occurred on 10/28/2017 Lipase level improved but remains elevated. Patient tolerating po diet. Off TPN. Asymptomatic. GI following - plan to remove G/J tube. Continue po diet as tolerated. Repeat CT scan in one week. Powertrain Engineer following, adequate po intake. D/C PICC line. Leukocytosis, possibly 2/2 steroid effect, resolved Recent PNA, treated with IV Zosyn and Azithromycin 10/20 to 11/02 Patient appears clinically much improved He is afebrile, does not appear septic. White count WNL. IS at bedside, encouraged use. Acapella Duonebs Continue to monitor respiratory status Supplemental oxygen to maintain 02 sats greater than 92% Macrocytic Anemia, acute on chronic B12 level 682 Folate greater than 20 s/p transfusion 2u PRBCs 10/27. Hgb dropped from 8.2 to 7.4. s/p additional unit transfused 11/08. Hgb improved to 8.7. No e/o active bleeding. Stool hemoccult neg 11/05. monitor Partial small bowel obstruction, resolved patient having bowel movements CT abd/pelvis 11/03 shows no e/o obstruction monitor Atrial fibrillation First-degree AV block Right bundle branch block Currently rate controlled Follow on telemetry 11/07 patients pacemaker cutting in and out. Pacemaker interrogated, normal function, episode of A. fib lasting 1 hour 11/06 [id number] score 2. Patient is not on any anticoagulation. Unable to take ASA 2/2 allergy. Hyperglycemia, suspect secondary to IV steroids and TPN Hgb A1c 5.8 BS improved Continue Accu-Cheks and low dose insulin sliding scale Generalized deconditioning Prolonged hospitalization Continue with PT/OT -possible discharge to [facility] once medically cleared DVT prophylaxis SCDs Heparin sq Code Status: Full Discussed Condition With: patient, , nursing staff, Dr. Jackson Discharge Planning: Discharge pending GI clearance. Plan for discharge to [facility] once medically cleared. Possible d/c to [facility]. Will set up peer to peer for auth with [employer].
[2017-11-09] MEDS: Nystatin Liq 500,000 UNIT/5 ML UDC SWISH-SPIT SCH ×4 (08:41→20:36)
[2017-11-09] MEDS: Heparin Central Flush 100 UNIT/ML 5 ML Vial IV.FLUSH SCH (08:41)
[2017-11-09] MEDS: Senna/Docusate Sodium 8.6/50 MG Tablet PO SCH ×2 (08:42→20:38)
[2017-11-09] MEDS ORDERED: diphenhydrAMINE 2%/Zinc Cream 30 GM Tube TOPICAL PRN (17:00)
[2017-11-10] MEDS: Insulin NovoLOG Aspart Correctional Sugar Inj SQ SCH ×4 (00:10→18:00)
--- NOTE | 2017-11-10 08:00 | P.PN ---
Subjective Interval history: Follow-up on patient with acute pancreatitis. Patient seen and examined. Patient states he is doing well. He is asking to be sat up so he can eat breakfast. He denies any back itching from his rash. He denies any fever or chills. He denies any chest pain or shortness of breath. He denies any nausea , vomiting or abdominal pain. He is tolerating diet well. G/J tubes are still in. He reports normal BM this am. Physical Exam Vital signs: Vital Signs 11/09/17 12:00 11/09/17 16:00 11/09/17 20:00 Temperature 97.5 F L 97.7 F 97.3 F L Pulse Rate 97 H 106 H 89 Respiratory Rate 18 18 18 Blood Pressure 115/57 L 116/58 L 112/55 L Pulse Oximetry 96 96 96 11/10/17 00:00 11/10/17 04:00 11/10/17 04:51 Temperature 98.4 F 98 F Pulse Rate 103 H 99 H 86 Respiratory Rate 18 16 Blood Pressure 105/53 L 105/53 L Pulse Oximetry 93 L 93 L Intake & Output 11/09/17 11/10/17 11/10/17 18:59 06:59 18:59 Intake Total 250 / 250 595 / 595 Output Total 3225 / 3225 Balance -2975 / -2975 595 / 595 Weight 86.4 kg Intake: Oral 240 / 240 595 / 595 Other 10 / 10 Output: Urine 500 / 500 Stool 300 / 300 Urine Amount (Catheter) 2175 / 2175 Condom 1875 / 1875 Indwelling Urethral Catheter 300 / 300 Gastric Drainage 250 / 250 Gastrojejunostomy Tube 250 / 250 Other: # Voids 1 2 # Incontinent Voids 1 # Urine Diapers 2 Date of Last Bowel Movement 11/08/17 11/09/17 # Bowel Movements 1 # Incontinent Bowel Movements 2 Narrative: GENERAL: Well-developed well-nourished elderly male patient, INAD. Awake and alert. Appears comfortable. SKIN: Warm and dry. Erythematous papular rash on back looks improved. HEENT: Atraumatic. Normocephalic. EOMI. sclera anicteric bilaterally. No nasal drainage noted. Airway patent. MMM. NECK: Supple, trachea midline. No lymphadenopathy. CARDIOVASCULAR: Regular rate and rhythm without murmurs, gallops, or rubs. RESPIRATORY: Nonlabored. Decreased in both lung bases. Clear to auscultation. GASTROINTESTINAL: Abdomen soft, non-tender, nondistended. Tube feed G AND J TUBE in the anterior abdomen clamped. MUSCULOSKELETAL: No cyanosis, or edema noted. NEURO: Awake and alert. Hard of hearing. Able to move all extremities spontaneously. Motor function grossly intact. No focal neurological deficits. Clear speech. PSYCHIATRIC: Calm and cooperative. Appropriate mood and affect. Normal judgment and insight. - Urinary Catheter Management Indwelling Urethral Catheter Cath placed during this visit: yes, but has since been removed by the nurse Reason for continuing: Decision to DC catheter Insertion date: 10/17/17 Insertion time: 17:30 Removal date: 10/25/17 Removal time: 14:38 Condom Cath placed during this visit: no Results - Labs CBC & Chem 7: 11/10/17 07:42 11/08/17 06:30 Laboratory Results - last 24 hr 11/09/17 11/09/17 11/10/17 11:29 17:18 00:17 POC Glucose 223 H 129 H 120 H 11/10/17 06:45 POC Glucose 122 H - Imaging Abdomen X-Ray 10/17/17 03:49 CONCLUSION: 1. No significant free intraperitoneal air. Abdomen/Pelvis CT 10/17/17 03:49 CONCLUSION: 1. Moderate peripancreatic inflammatory stranding consistent with pancreatitis. Pancreas enhances uniformly and there is no peripancreatic fluid collection at this time. 2. Interval placement of CBD stent with persistent intra and extra hepatic ductal dilatation. 3. Focal adynamic ileus in the proximal jejunum secondary to the peripancreatic inflammatory changes. 4. Stable additional ancillary findings, as above. Chest X-Ray 10/18/17 00:00 CONCLUSION: Pacemaker with moderate compensated cardiomegaly. I don't see significant failure. GI Procedure 10/18/17 00:00 CONCLUSION: Multiple filling defects are identified in the common bile duct which is distended. Abdomen/Pelvis CT 10/19/17 00:00 CONCLUSION: 1. Induration in the mesentery and abutting the undersurface of the pancreas. There is also induration in the posterior right pararenal space. This distribution is most suggestive of pancreatitis. 2. New dilatation the distal esophagus, stomach, and proximal small bowel. Contrast is seen to reach the colon. This could be a asymmetric ileus. Some degree of obstruction cannot be excluded. 3. Mild bilateral pleural effusions with accompanying areas of atelectasis or consolidation being worse on the right. 4. Pneumobilia. The previously seen biliary duct stent has been removed. The common bile duct is dilated measuring 1.8 cm. The patient is status post cholecystectomy. Abdomen X-Ray 10/19/17 10:44 CONCLUSION: No radiographic evidence of ileus or bowel obstruction. No evidence of free air. Abdomen X-Ray 10/20/17 06:00 CONCLUSION: Nasogastric tube tip not clearly seen. Mildly distended bowel loop in the left lower quadrant. Otherwise nonspecific Chest X-Ray 10/20/17 06:00 CONCLUSION: Slight interval worsening in aeration Abdomen X-Ray 10/21/17 00:00 CONCLUSION: Dilated bowel in the left mid abdomen. It is not clear if this is colon or small bowel but may represent small intestine dilatation. This has increased from the prior study. Given the appearance on prior CT from 2 days ago this could represent some degree of small bowel obstruction. Therefore, suggest attention to this at follow-up imaging. Small Bowel X-Ray 10/22/17 00:00 CONCLUSION: Findings suggest a partial mid to distal small bowel obstruction. Abdomen X-Ray 10/22/17 07:00 CONCLUSION: Dilated bowel loops in the left abdomen, unchanged. Chest X-Ray 10/23/17 03:34 CONCLUSION: Bilateral mostly basilar airspace disease and pleural effusions similar to October 20. Cardiomegaly. NG tip near GE junction with side port in distal esophagus. Gastrostomy Tube Placement 10/28/17 00:00 CONCLUSION: 1. Uncomplicated gastrojejunostomy tube placement as above. Abdomen/Pelvis CT 11/03/17 12:07 CONCLUSION: 1. Since the prior study from 10/19/2017 the area of induration caudal to the pancreas within the fat has significantly progressed and demonstrates more soft tissue density within it and enlarged since that time. The pancreas itself appears intact and findings could represent pancreatitis although somewhat unusual in the pancreas itself is completely intact and normal. Clinical correlation is suggested. 2. Bilateral pleural effusions and bibasilar consolidation/infiltrate worse on the right. Chest X-Ray 11/04/17 00:00 CONCLUSION: Very small right pleural effusion otherwise stable chest without significant lung consolidation. - Procedures ERCP 10/18/2017 IMPRESSIONS: 1. A previously placed ampulla stent was seen extending from the orifice, removed by snare. 2. 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 3. Sphincterotomy done. 4. Ductal sweep with balloon and irrigation removing multiple variable size stones, sludge and debris. 5. Normal inclusion cholangiogram afterward Assessment and Plan - Assessment (1) Pancreatitis Code(s): K85.90 - Acute pancreatitis without necrosis or infection, unspecified Status: Acute (2) Ileus, postoperative Code(s): K91.89 - Other postprocedural complications and disorders of digestive system; K56.7 - Ileus, unspecified Status: Acute (3) Hyperglycemia Code(s): R73.9 - Hyperglycemia, unspecified Status: Acute (4) Hypokalemia Code(s): E87.6 - Hypokalemia Status: Acute (5) Hyponatremia Code(s): E87.1 - Hypo-osmolality and hyponatremia Status: Acute (6) Atrial fibrillation Code(s): I48.91 - Unspecified atrial fibrillation Status: Acute (7) Macrocytic anemia Code(s): D53.9 - Nutritional anemia, unspecified Status: Acute (8) Cholangitis Code(s): K83.0 - Cholangitis Status: Acute - Plan 87 year old male with history of choledocholithiasis and cholangitis status post recent ERCP admitted on 10/[address] abdominal [address] A/ P as well as lipase level indicate acute pancreatitis. Course has been complicated by ileus. Pancreatitis, improving Chronic diarrhea s/p ERCP with sphincterotomy and stent removal and stone and sludge removal Feeding tube placement occurred on 10/28/2017 Lipase level improved but remains elevated. Patient tolerating po diet. Off TPN. Asymptomatic. GI following - plan to remove G/J tube tomorrow. Continue po diet as tolerated. Repeat CT scan in one week. Supervisor Inspecting following, adequate po intake. Leukocytosis, possibly 2/2 steroid effect, resolved Recent PNA, treated with IV Zosyn and Azithromycin 10/20 to 11/02 Patient appears clinically much improved He is afebrile, does not appear septic. White count WNL. IS at bedside, encouraged use. Blaze Sanchez Continue to monitor respiratory status Supplemental oxygen to maintain 02 sats greater than 92% Macrocytic Anemia, acute on chronic B12 level 682 Folate greater than 20 s/p transfusion 2u PRBCs 10/27. Hgb dropped from 8.2 to 7.4. s/p additional unit transfused 11/08. Hgb improved to 8.7. Now 8.5. Will repeat H/H in am. If continues to drop will consider Hem consult. No e/o active bleeding. Stool hemoccult neg 11/05. monitor Partial small bowel obstruction, resolved patient having bowel movements CT abd/pelvis 11/03 shows no e/o obstruction monitor Atrial fibrillation First-degree AV block Right bundle branch block Currently rate controlled Follow on telemetry 11/07 patients pacemaker cutting in and out. Pacemaker interrogated, normal function, episode of A. fib lasting 1 hour 11/06 [id number] score 2. Patient is not on any anticoagulation. Unable to take ASA 2/2 allergy. Hyperglycemia, suspect secondary to IV steroids and TPN Hgb A1c 5.8 BS improved Continue Accu-Cheks and low dose insulin sliding scale Hypomagnesemia Mag low normal at 1.7 Give po repletion repeat Mag level in am Generalized deconditioning Prolonged hospitalization Continue with PT/OT -possible discharge to [facility] once medically cleared DVT prophylaxis SCDs Heparin sq Code Status: Full Discussed Condition With: patient, nursing staff, Dr. Jackson Discharge Planning: Discharge pending GI clearance. Plan for discharge to [facility] once medically cleared. Possible d/c to [facility]. Will set up peer to peer for auth with [employer]. [place] liaison for [facility].
[2017-11-10] MEDS: Heparin Central Flush 100 UNIT/ML 5 ML Vial IV.FLUSH SCH (08:56)
[2017-11-10] MEDS: Nystatin Liq 500,000 UNIT/5 ML UDC SWISH-SPIT SCH ×4 (08:56→21:34)
[2017-11-10] MEDS: Senna/Docusate Sodium 8.6/50 MG Tablet PO SCH ×2 (08:56→21:34)
[2017-11-10 09:35] LABS: Hemoglobin 8.5 gm/dL (13.0-17.0); Mean Corpuscular HGB Conc 32.5 % (32.0-36.0); Mean Corpuscular Hemoglobin 31.7 pg (27.0-34.0); Mean Corpuscular Volume 97.4 fL (80.0-100.0); Mean Platelet Volume 9.3 fL (7.0-11.0); Platelet Count 209 th/mm3 (150-450); Red Blood Count 2.67 mil/mm3 (4.50-5.90); Red Cell Distribution Width 27.9 % (11.6-17.2); White Blood Count 7.8 th/mm3 (4.0-11.0)
[2017-11-10] MEDS: Magnesium Oxide 400 MG Tablet PO SCH ×2 (13:26→21:34)
[2017-11-11] MEDS: Insulin NovoLOG Aspart Correctional Sugar Inj SQ SCH ×4 (00:46→18:08)
[2017-11-11 07:18] LABS: Hematocrit 26.8 % (39.0-51.0); Hemoglobin 8.9 gm/dL (13.0-17.0)
--- NOTE | 2017-11-11 07:22 | P.PN ---
Subjective Interval history: Follow-up on patient with acute pancreatitis. Patient seen and examined. Patient reports he is doing very well. His only complaint is he did not sleep well last night. Reminded him he has prn sleep aid if needed but he informs me he does not like to take sleeping pill. No fever or chills. No nausea, vomiting or abdominal oneil. Denies chest pain or shortness of breath. Physical Exam Vital signs: Vital Signs 11/10/17 08:00 11/10/17 12:00 11/10/17 16:00 Temperature 97.8 F 97.2 F L 97.8 F Pulse Rate 85 101 H 94 H Respiratory Rate 16 18 18 Blood Pressure 112/58 L 110/59 L 111/54 L Pulse Oximetry 95 94 L 97 11/10/17 20:00 11/11/17 00:00 11/11/17 04:00 Temperature 97.2 F L 97.4 F L 97.7 F Pulse Rate 97 H 85 82 Respiratory Rate 18 18 20 Blood Pressure 125/58 L 122/57 L 129/60 Pulse Oximetry 97 93 L 93 L Intake & Output 11/10/17 11/11/17 11/11/17 18:59 06:59 18:59 Intake Total Output Total 3225 / 3225 Balance -3215 / -3215 Weight 86.1 kg Intake: Other 10 Output: Urine 500 / 500 Stool 300 / 300 Urine Amount (Catheter) 2175 / 2175 Condom 1875 / 1875 Indwelling Urethral Catheter 300 / 300 Gastric Drainage 250 / 250 Gastrojejunostomy Tube 250 / 250 Other: # Voids 2 # Incontinent Voids 1 # Urine Diapers 2 Date of Last Bowel Movement 11/10/17 11/10/17 # Bowel Movements 1 # Incontinent Bowel Movements 2 Narrative: GENERAL: Well-developed well-nourished elderly male patient, INAD. Awake and alert. Appears comfortable lying in bed. SKIN: Warm and dry. Erythematous papular rash on back looks improved. HEENT: Atraumatic. Normocephalic. EOMI. sclera anicteric bilaterally. No nasal drainage noted. Airway patent. MMM. NECK: Supple, trachea midline. No lymphadenopathy. CARDIOVASCULAR: Regular rate and rhythm without murmurs, gallops, or rubs. RESPIRATORY: Nonlabored. Decreased in both lung bases. Clear to auscultation. GASTROINTESTINAL: Abdomen soft, non-tender, nondistended. Tube feed G AND J TUBE in the anterior abdomen clamped. MUSCULOSKELETAL: No cyanosis, or edema noted. NEURO: Awake and alert. Hard of hearing. Able to move all extremities spontaneously. Motor function grossly intact. No focal neurological deficits. Clear speech. PSYCHIATRIC: Calm and cooperative. Appropriate mood and affect. Normal judgment and insight. - Urinary Catheter Management Indwelling Urethral Catheter Cath placed during this visit: yes, but has since been removed by the nurse Reason for continuing: Decision to DC catheter Insertion date: 10/17/17 Insertion time: 17:30 Removal date: 10/25/17 Removal time: 14:38 Condom Cath placed during this visit: no Results - Labs CBC & Chem 7: 11/11/17 05:46 11/11/17 05:40 Laboratory Results - last 24 hr 11/08/17 11/10/17 11/10/17 13:00 07:42 11:56 WBC 7.8 RBC 2.67 L Hgb 8.5 L Hct 26.0 L MCV 97.4 MCH 31.7 MCHC 32.5 RDW 27.9 H Plt Count 209 MPV 9.3 POC Glucose 214 H MTS Gel Crossmatch See Detail 11/10/17 11/11/17 11/11/17 17:29 00:46 05:46 WBC RBC Hgb 8.9 L Hct 26.8 L MCV MCH MCHC RDW Plt Count MPV POC Glucose 109 142 H MTS Gel Crossmatch 11/11/17 06:03 WBC RBC Hgb Hct MCV MCH MCHC RDW Plt Count MPV POC Glucose 122 H MTS Gel Crossmatch - Imaging Abdomen X-Ray 10/17/17 03:49 CONCLUSION: 1. No significant free intraperitoneal air. Abdomen/Pelvis CT 10/17/17 03:49 CONCLUSION: 1. Moderate peripancreatic inflammatory stranding consistent with pancreatitis. Pancreas enhances uniformly and there is no peripancreatic fluid collection at this time. 2. Interval placement of CBD stent with persistent intra and extra hepatic ductal dilatation. 3. Focal adynamic ileus in the proximal jejunum secondary to the peripancreatic inflammatory changes. 4. Stable additional ancillary findings, as above. Chest X-Ray 10/18/17 00:00 CONCLUSION: Pacemaker with moderate compensated cardiomegaly. I don't see significant failure. GI Procedure 10/18/17 00:00 CONCLUSION: Multiple filling defects are identified in the common bile duct which is distended. Abdomen/Pelvis CT 10/19/17 00:00 CONCLUSION: 1. Induration in the mesentery and abutting the undersurface of the pancreas. There is also induration in the posterior right pararenal space. This distribution is most suggestive of pancreatitis. 2. New dilatation the distal esophagus, stomach, and proximal small bowel. Contrast is seen to reach the colon. This could be a asymmetric ileus. Some degree of obstruction cannot be excluded. 3. Mild bilateral pleural effusions with accompanying areas of atelectasis or consolidation being worse on the right. 4. Pneumobilia. The previously seen biliary duct stent has been removed. The common bile duct is dilated measuring 1.8 cm. The patient is status post cholecystectomy. Abdomen X-Ray 10/19/17 10:44 CONCLUSION: No radiographic evidence of ileus or bowel obstruction. No evidence of free air. Abdomen X-Ray 10/20/17 06:00 CONCLUSION: Nasogastric tube tip not clearly seen. Mildly distended bowel loop in the left lower quadrant. Otherwise nonspecific Chest X-Ray 10/20/17 06:00 CONCLUSION: Slight interval worsening in aeration Abdomen X-Ray 10/21/17 00:00 CONCLUSION: Dilated bowel in the left mid abdomen. It is not clear if this is colon or small bowel but may represent small intestine dilatation. This has increased from the prior study. Given the appearance on prior CT from 2 days ago this could represent some degree of small bowel obstruction. Therefore, suggest attention to this at follow-up imaging. Small Bowel X-Ray 10/22/17 00:00 CONCLUSION: Findings suggest a partial mid to distal small bowel obstruction. Abdomen X-Ray 10/22/17 07:00 CONCLUSION: Dilated bowel loops in the left abdomen, unchanged. Chest X-Ray 10/23/17 03:34 CONCLUSION: Bilateral mostly basilar airspace disease and pleural effusions similar to October 20. Cardiomegaly. NG tip near GE junction with side port in distal esophagus. Gastrostomy Tube Placement 10/28/17 00:00 CONCLUSION: 1. Uncomplicated gastrojejunostomy tube placement as above. Abdomen/Pelvis CT 11/03/17 12:07 CONCLUSION: 1. Since the prior study from 10/19/2017 the area of induration caudal to the pancreas within the fat has significantly progressed and demonstrates more soft tissue density within it and enlarged since that time. The pancreas itself appears intact and findings could represent pancreatitis although somewhat unusual in the pancreas itself is completely intact and normal. Clinical correlation is suggested. 2. Bilateral pleural effusions and bibasilar consolidation/infiltrate worse on the right. Chest X-Ray 11/04/17 00:00 CONCLUSION: Very small right pleural effusion otherwise stable chest without significant lung consolidation. - Procedures ERCP 10/18/2017 IMPRESSIONS: 1. A previously placed ampulla stent was seen extending from the orifice, removed by snare. 2. 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 3. Sphincterotomy done. 4. Ductal sweep with balloon and irrigation removing multiple variable size stones, sludge and debris. 5. Normal inclusion cholangiogram afterward Assessment and Plan - Assessment (1) Pancreatitis Code(s): K85.90 - Acute pancreatitis without necrosis or infection, unspecified Status: Acute (2) Ileus, postoperative Code(s): K91.89 - Other postprocedural complications and disorders of digestive system; K56.7 - Ileus, unspecified Status: Acute (3) Hyperglycemia Code(s): R73.9 - Hyperglycemia, unspecified Status: Acute (4) Hypokalemia Code(s): E87.6 - Hypokalemia Status: Acute (5) Hyponatremia Code(s): E87.1 - Hypo-osmolality and hyponatremia Status: Acute (6) Atrial fibrillation Code(s): I48.91 - Unspecified atrial fibrillation Status: Acute (7) Macrocytic anemia Code(s): D53.9 - Nutritional anemia, unspecified Status: Acute (8) Cholangitis Code(s): K83.0 - Cholangitis Status: Acute - Plan 87 year old male with history of choledocholithiasis and cholangitis status post recent ERCP admitted on 10/17 with progressive abdominal pain. CT A/ P as well as lipase level indicate acute pancreatitis. Course has been complicated by ileus. Pancreatitis, improving Chronic diarrhea s/p ERCP with sphincterotomy and stent removal and stone and sludge removal Feeding tube placement occurred on 10/28/2017 Lipase level improved but remains elevated. Patient tolerating po diet. Off TPN. Asymptomatic. GI following - plan to remove G/J tube today by IR. Continue po diet as tolerated. Repeat CT scan in one week per GI. Operations Plant Attendant following, adequate po intake. Leukocytosis, possibly 2/2 steroid effect, resolved Recent PNA, treated with IV Zosyn and Azithromycin 10/20 to 11/02 Patient appears clinically much improved He is afebrile, does not appear septic. White count now WNL. IS at bedside, encouraged use. Acapella Duonebs Continue to monitor respiratory status Supplemental oxygen to maintain 02 sats greater than 92% Macrocytic Anemia, acute on chronic B12 level 682 Folate greater than 20 s/p transfusion 2u PRBCs 10/27. Hgb dropped from 8.2 to 7.4. s/p additional unit transfused 11/08. Hgb improved to 8.9. No e/o active bleeding. Stool hemoccult neg 11/05. monitor Partial small bowel obstruction, resolved patient having bowel movements CT abd/pelvis 11/03 shows no e/o obstruction monitor Atrial fibrillation First-degree AV block Right bundle branch block Currently rate controlled Follow on telemetry 11/07 patients pacemaker cutting in and out. Pacemaker interrogated, normal function, episode of A. fib lasting 1 hour 11/06 [id number] score 2. Patient is not on any anticoagulation. Unable to take ASA 2/2 allergy. Hyperglycemia, suspect secondary to IV steroids and TPN Hgb A1c 5.8 BS improved Continue Accu-Cheks and low dose insulin sliding scale Hypomagnesemia Mag low normal at 1.7 Give po repletion Generalized deconditioning Prolonged hospitalization Continue with PT/OT -medically cleared for discharge to [facility] if insurance authorizes. If not, plan for [place] [facility]. DVT prophylaxis SCDs Heparin sq Code Status: Full Discussed Condition With: patient, nursing staff, Dr. Jackson Discharge Planning: Discharge pending GI clearance. Plan for discharge to [place] [facility] once medically cleared. Possible d/c to [facility]. Will set up peer to peer for auth with [employer]. [place] liaison for [place] following.
[2017-11-11 07:40] LABS: Albumin 2.6 g/dL (3.4-5.0); Anion Gap 7 meq/L (5-15); Aspartate Aminotransferase 29 U/L (15-37); Blood Urea Nitrogen 13 mg/dL (7-18); Calcium 9.2 mg/dL (8.5-10.1); Carbon Dioxide 27.8 meq/L (21.0-32.0); Chloride 104 meq/L (98-107); Glomerular Filtration Rate 74 mL/min (>89); Glucose,Random 111 mg/dL (74-106); Magnesium 1.8 mg/dL (1.5-2.5); Sodium 139 meq/L (136-145)
[2017-11-11 07:41] LABS: Alanine Aminotransferase 31 U/L (12-78); Phosphorus 3.1 mg/dL (2.5-4.9)
[2017-11-11 07:43] LABS: Alkaline Phosphatase 115 U/L (45-117); Total Protein 6.9 g/dL (6.4-8.2)
[2017-11-11] MEDS: Senna/Docusate Sodium 8.6/50 MG Tablet PO SCH ×2 (09:08→21:47)
[2017-11-11] MEDS: Magnesium Oxide 400 MG Tablet PO SCH ×2 (09:08→21:47)
[2017-11-11] MEDS: Nystatin Liq 500,000 UNIT/5 ML UDC SWISH-SPIT SCH ×4 (09:09→21:47)
[2017-11-11] MEDS: Heparin Central Flush 100 UNIT/ML 5 ML Vial IV.FLUSH SCH (09:09)
--- NOTE | 2017-11-11 09:13 | P.PNGI ---
Subjective Interval history: Pt resting in bed, states feeling well today. Pt thinks he had a BM last night. States he is eating fairly well. Planned to have GJ removed by IR today. <Alley Ruiz - Last Filed: 11/11/17 09:05> Physical Exam Vital signs: Vital Signs 11/10/17 12:00 11/10/17 16:00 11/10/17 20:00 Temperature 97.2 F L 97.8 F 97.2 F L Pulse Rate 101 H 94 H 97 H Respiratory Rate 18 18 18 Blood Pressure 110/59 L 111/54 L 125/58 L Pulse Oximetry 94 L 97 97 11/11/17 00:00 11/11/17 04:00 11/11/17 08:28 Temperature 97.4 F L 97.7 F Pulse Rate 85 82 78 Respiratory Rate 18 20 Blood Pressure 122/57 L 129/60 Pulse Oximetry 93 L 93 L Intake & Output 11/10/17 11/11/17 11/11/17 18:59 06:59 18:59 Intake Total 10 10 Output Total 3225 / 3225 840 / 840 Balance -3215 / -3215 -840 / -840 Weight 86.1 kg Intake: Other 10 Output: Urine 500 / 500 840 / 840 Stool 300 / 300 Urine Amount (Catheter) 2175 / 2175 Condom 1875 / 1875 Indwelling Urethral Catheter 300 / 300 Gastric Drainage 250 / 250 Gastrojejunostomy Tube 250 / 250 Other: # Voids 2 # Incontinent Voids 1 # Urine Diapers 2 Date of Last Bowel Movement 11/10/17 11/10/17 # Bowel Movements 1 # Incontinent Bowel Movements 2 - Constitutional no acute distress - Routine HEENT Exam Head: Present: normocephalic, atraumatic - Routine Respiratory Exam Absent: accessory muscle use - Routine Abdominal Exam Present: soft, normoactive bowel sounds. Absent: tenderness, distended - Routine Skin Exam Present: dry, warm - Routine Neurological Exam Present: alert, oriented X3 - Urinary Catheter Management Indwelling Urethral Catheter Cath placed during this visit: yes, but has since been removed by the nurse Reason for continuing: Decision to DC catheter Insertion date: 10/17/17 Insertion time: 17:30 Removal date: 10/25/17 Removal time: 14:38 Condom Cath placed during this visit: no <Alley Ruiz - Last Filed: 11/11/17 09:05> Vital signs: Vital Signs 11/10/17 16:00 11/10/17 20:00 11/11/17 00:00 Temperature 97.8 F 97.2 F L 97.4 F L Pulse Rate 94 H 97 H 85 Respiratory Rate 18 18 18 Blood Pressure 111/54 L 125/58 L 122/57 L Pulse Oximetry 97 97 93 L 11/11/17 04:00 11/11/17 08:00 11/11/17 08:28 Temperature 97.7 F 97.7 F Pulse Rate 82 91 H 78 Respiratory Rate 20 20 Blood Pressure 129/60 137/62 Pulse Oximetry 93 L 94 L 11/11/17 12:00 11/11/17 12:24 Temperature 97.5 F L Pulse Rate 107 H 105 H Respiratory Rate 20 Blood Pressure 119/57 L Pulse Oximetry 95 Intake & Output 11/10/17 11/11/17 11/11/17 18:59 06:59 18:59 Intake Total 10 Output Total 3225 / 3225 840 / 840 Balance -3215 / -3215 -840 / -840 Weight 86.1 kg Intake: Other 10 10 Output: Urine 500 / 500 840 / 840 Stool 300 / 300 Urine Amount (Catheter) 2175 / 2175 Condom 1875 / 1875 Indwelling Urethral Catheter 300 / 300 Gastric Drainage 250 / 250 Gastrojejunostomy Tube 250 / 250 Other: # Voids 2 # Incontinent Voids 1 # Urine Diapers 2 Date of Last Bowel Movement 11/10/17 11/10/17 # Bowel Movements 1 # Incontinent Bowel Movements 2 - Urinary Catheter Management Indwelling Urethral Catheter Cath placed during this visit: no Condom Cath placed during this visit: no <Ellen Schwarz - Last Filed: 11/11/17 16:00> Results - Labs CBC & Chem 7: 11/11/17 05:46 11/11/17 05:40 Laboratory Results - last 24 hr 11/08/17 11/10/17 11/10/17 13:00 07:42 11:56 WBC 7.8 RBC 2.67 L Hgb 8.5 L Hct 26.0 L MCV 97.4 MCH 31.7 MCHC 32.5 RDW 27.9 H Plt Count 209 MPV 9.3 Sodium Potassium Chloride Carbon Dioxide Anion Gap BUN Creatinine Estimated GFR POC Glucose 214 H Random Glucose Calcium Phosphorus Magnesium Total Bilirubin AST ALT Alkaline Phosphatase Total Protein Albumin MTS Gel Crossmatch See Detail 11/10/17 11/11/17 11/11/17 17:29 00:46 05:40 WBC RBC Hgb Hct MCV MCH MCHC RDW Plt Count MPV Sodium 139 Potassium 4.0 Chloride 104 Carbon Dioxide 27.8 Anion Gap 7 BUN 13 Creatinine 0.96 Estimated GFR 74 L POC Glucose 109 142 H Random Glucose 111 H Calcium 9.2 Phosphorus 3.1 Magnesium 1.8 Total Bilirubin 0.9 AST 29 ALT 31 Alkaline Phosphatase 115 Total Protein 6.9 D Albumin 2.6 L MTS Gel Crossmatch 11/11/17 11/11/17 05:46 06:03 WBC RBC Hgb 8.9 L Hct 26.8 L MCV MCH MCHC RDW Plt Count MPV Sodium Potassium Chloride Carbon Dioxide Anion Gap BUN Creatinine Estimated GFR POC Glucose 122 H Random Glucose Calcium Phosphorus Magnesium Total Bilirubin AST ALT Alkaline Phosphatase Total Protein Albumin MTS Gel Crossmatch - Procedures ERCP 10/18/2017 IMPRESSIONS: 1. A previously placed ampulla stent was seen extending from the orifice, removed by snare. 2. 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 3. Sphincterotomy done. 4. Ductal sweep with balloon and irrigation removing multiple variable size stones, sludge and debris. 5. Normal inclusion cholangiogram afterward <Alley Ruiz - Last Filed: 11/11/17 09:05> - Labs CBC & Chem 7: 11/11/17 05:46 11/11/17 05:40 Laboratory Results - last 24 hr 11/08/17 11/10/17 11/11/17 13:00 17:29 00:46 Hgb Hct Sodium Potassium Chloride Carbon Dioxide Anion Gap BUN Creatinine Estimated GFR POC Glucose 109 142 H Random Glucose Calcium Phosphorus Magnesium Total Bilirubin AST ALT Alkaline Phosphatase Total Protein Albumin MTS Gel Crossmatch See Detail 11/11/17 11/11/17 11/11/17 05:40 05:46 06:03 Hgb 8.9 L Hct 26.8 L Sodium 139 Potassium 4.0 Chloride 104 Carbon Dioxide 27.8 Anion Gap 7 BUN 13 Creatinine 0.96 Estimated GFR 74 L POC Glucose 122 H Random Glucose 111 H Calcium 9.2 Phosphorus 3.1 Magnesium 1.8 Total Bilirubin 0.9 AST 29 ALT 31 Alkaline Phosphatase 115 Total Protein 6.9 D Albumin 2.6 L MTS Gel Crossmatch 11/11/17 11:36 Hgb Hct Sodium Potassium Chloride Carbon Dioxide Anion Gap BUN Creatinine Estimated GFR POC Glucose 188 H Random Glucose Calcium Phosphorus Magnesium Total Bilirubin AST ALT Alkaline Phosphatase Total Protein Albumin MTS Gel Crossmatch <Ellen Schwarz - Last Filed: 11/11/17 16:00> Assessment and Plan (1) Cholangitis Status: Acute Code(s): K83.0 - Cholangitis (2) Elevated LFTs Status: Acute Code(s): R94.5 - Abnormal results of liver function studies (3) Pancreatitis Status: Acute Code(s): K85.90 - Acute pancreatitis without necrosis or infection, unspecified - Plan Elevated LFTs and pancreatitis with recent ERCP with findings of biliary sludge and bile duct dilatation S/P balloon sweep and plastic stent placement on 10/11- Pt with history of choledocholithiasis and cholangitis. History of cholecystectomy. Complaining of: upper abdominal pain that began at 9pm last night after dinner at 8pm, constant, described as "hunger pains". Denies associated fever, chills, nausea, vomiting. Denies history of pancreatitis. Denies ETOH. CT abdomen and pelvis W IV contrast (10/17) Moderate peripancreatic inflammatory stranding consistent with pancreatitis. Pancreas enhances uniformly and there is no peripancreatic fluid collection at this time. Interval placement of CBD stent with persistent intra and extra hepatic ductal dilatation. Focal adynamic ileus in the proximal jejunum secondary to the peripancreatic inflammatory changes S/P ERCP (10/18) --> A previously placed ampulla stent was seen extending from the orifice, removed by snare. 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 Sphincterotomy done. Ductal sweep with balloon and irrigation removing multiple variable size stones, sludge and debris. Normal inclusion cholangiogram afterward Repeat CT abdomen and pelvis (10/19) --> Consistent with pancreatitis, new dilatation in the distal esophagus, stomach, and proximal small bowel, contrast is seen to reach the colon which could be asymmetric ileus, some degree of obstruction cannot be excluded. Pneumobilia, previously seen biliary duct stent has been removed, CBD is dilated measuring 1.8 cm. 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 Has been started on TPN- GJ placement by IR. Has been having BMs for the past few days, however abdomen has remained distended. (11/11) Pt resting in bed, abdomen is soft, nondistended, nontender. He states he is eating fairly well. Denies any nausea, vomiting, abdominal pain. Thinks he had a BM last night. Planned for GJ removal by IR today. Discussed with MARIANGEL Ryan, pt might be discharged to [place] today Plan: GJ removal by IR Continue diet Monitor output OK for DC to [place] Pt has been seen and examined by myself and Dr. Schwarz and this note is written on her behalf <Alley Ruiz - Last Filed: 11/11/17 09:05> (1) Cholangitis Status: Acute Code(s): K83.0 - Cholangitis (2) Elevated LFTs Status: Acute Code(s): R94.5 - Abnormal results of liver function studies (3) Pancreatitis Status: Acute Code(s): K85.90 - Acute pancreatitis without necrosis or infection, unspecified - Attending Attestation seen, examined agree with above g/j tube will be removed in 2 weeks as per IR protocol ok to dc to rehab from gi point close monitoring of lfts, lipase fu gi 2 weeks ercp as recommended <Ellen Schwarz - Last Filed: 11/11/17 16:00>
--- NOTE | 2017-11-11 13:12 | P.DS ---
<Shelby Ahn - Last Filed: 11/11/17 18:00> Date of admission: 10/17/17 05:54 Primary care physician: Bimal Cottrell MD Attending physician on discharge: Ana Jackson Brief History from admission: Mr. Guillen is a pleasant 87 year old male with a history of choledocholithiasis, cholangitis with recent ERCP who presents to the ED on 10/17 due to abdominal pain that started after dinner last night around 9PM on . His pain was initially in the epigastric area but later became more diffuse abdominal pain. CT abd/pelvis shows evidence of pancreatitis and lipase elevated to 9833. Patient denies any chest pain, shortness of breath, fever, chills. No changes in bowel or bladder habits. DS: Diagnosis - Discharge Diagnosis (1) Pancreatitis Status: Acute (2) Ileus, postoperative Status: Acute (3) Hyperglycemia Status: Acute (4) Hypokalemia Status: Acute (5) Hyponatremia Status: Acute (6) Atrial fibrillation Status: Acute (7) Macrocytic anemia Status: Acute (8) Cholangitis Status: Acute DS: Medications - Discharge Medications Prescriptions: ipratropium-albuterol 1 amp NEB Q4HR NEB PRN #1 ml PRN Reason: Shortness Of Breath/Wheezing DS: Summary Hospital Course: Patient with history of choledocholithiasis, cholangitis with recent ERCP presented to ED with complaints of abdominal pain. CT of the abdomen and pelvis as well as lipase level indicating acute pancreatitis felt likely be due to complication from recent ERCP. Patient was started on IV fluids, made n.p.o. and GI was consulted. He was started on IV Zosyn and Vancomycin. MRCP could not be done due to patient's pacemaker. 10/18 patient underwent ERCP with sphincterotomy/papillotomy with removal of calculus. Patient developed significant abdominal distention. Repeat CT showed distention of the distal esophagus, stomach and proximal SI possibly representing partial ileus. NG tube was placed to LIWS. Patient developed sepsis with white count of 24.9, tachycardia and elevated heart rate secondary to PNA. He developed acute kidney injury and vancomycin was discontinued. He developed hematuria. UA did not show any evidence of UTI. He was seen in consultation by his procurement specialist Dr. Elkins. He was also seen in consultation by general surgery. He was started on TPN. G/J tube was placed and he was started on tube feedings. Patient was transfused 2u PRBCs for hemoglobin of 6.1. Patient clinically improved. Patients lipase level improved but remained elevated. He began tolerating diet and TPN was weaned. His hemoglobin dropped to 7.4 from 8.2 and he was transfused another unit of PRBCs. He began progress with physical therapy. He was evaluated by [facility] for comprehensive rehabilitation. Patient was cleared by GI for discharge to rehab. Patient to have repeat CT abd/pelvis in one week. - Time Spent with Patient Total time spent providing and/or coordinating discharge services: Greater than 30 minutes - Quality: VTE Deep Vein Thrombosis/Pulmonary Embolism Present on Admission: No Exam Vital signs: Vital Signs 11/10/17 16:00 11/10/17 20:00 11/11/17 00:00 Temperature 97.8 F 97.2 F L 97.4 F L Pulse Rate 94 H 97 H 85 Respiratory Rate 18 18 18 Blood Pressure 111/54 L 125/58 L 122/57 L Pulse Oximetry 97 97 93 L 11/11/17 04:00 11/11/17 08:28 11/11/17 12:24 Temperature 97.7 F Pulse Rate 82 78 105 H Respiratory Rate 20 Blood Pressure 129/60 Pulse Oximetry 93 L Intake & Output 11/10/17 11/11/17 11/11/17 18:59 06:59 18:59 Intake Total Output Total 3225 / 3225 840 / 840 Balance -3215 / -3215 -840 / -840 Weight 86.1 kg Intake: Other Output: Urine 500 / 500 840 / 840 Stool 300 / 300 Urine Amount (Catheter) 2175 / 2175 Condom 1875 / 1875 Indwelling Urethral Catheter 300 / 300 Gastric Drainage 250 / 250 Gastrojejunostomy Tube 250 / 250 Other: # Voids 2 # Incontinent Voids 1 # Urine Diapers 2 Date of Last Bowel Movement 11/10/17 11/10/17 # Bowel Movements 1 # Incontinent Bowel Movements 2 Narrative: GENERAL: Well-developed well-nourished elderly male patient, INAD. Awake and alert. Appears comfortable lying in bed. is at the bedside. SKIN: Warm and dry. Erythematous papular rash on back looks improved. HEENT: Atraumatic. Normocephalic. EOMI. sclera anicteric bilaterally. No nasal drainage noted. Airway patent. MMM. NECK: Supple, trachea midline. No lymphadenopathy. CARDIOVASCULAR: Regular rate and rhythm without murmurs, gallops, or rubs. RESPIRATORY: Nonlabored. Decreased in both lung bases. Clear to auscultation. GASTROINTESTINAL: Abdomen soft, non-tender, nondistended. Tube feed G AND J TUBE in the anterior abdomen clamped. MUSCULOSKELETAL: No cyanosis, or edema noted. NEURO: Awake and alert. Hard of hearing. Able to move all extremities spontaneously. Motor function grossly intact. No focal neurological deficits. Clear speech. PSYCHIATRIC: Calm and cooperative. Appropriate mood and affect. Normal judgment and insight. Results Procedures completed during hospitalization: ERCP 10/18/2017 IMPRESSIONS: 1. A previously placed ampulla stent was seen extending from the orifice, removed by snare. 2. 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 3. Sphincterotomy done. 4. Ductal sweep with balloon and irrigation removing multiple variable size stones, sludge and debris. 5. Normal inclusion cholangiogram afterward Post Procedure Progress Note - Pre Procedure Diagnosis (1) Pancreatitis - Post Procedure Diagnosis (1) Pancreatitis - Procedure Information Procedure Date: 10/28/17 Supervising Radiologist: John Velez Jr, MD Estimated blood loss (mL): 0 Anesthesia: Conscious Sedation - Plan of Activity Patient to Unit: ROPU Patient Condition: Good See PACS Report for procedural detail/treatment. Feeding Tube Feeding Tube: Gastro/Jejunostomy Procedure: Placement Romanian Tube Size: 18 Findings: Tip of J tube in prox jejunum. Plan: T fasteners will fall off in 2-3 weeks. Labs on day of discharge: Labs from last 24 hours 11/11/17 11/11/17 11/11/17 11:36 06:03 05:46 Hgb 8.9 L Hct 26.8 L Sodium Potassium Chloride Carbon Dioxide Anion Gap BUN Creatinine Estimated GFR POC Glucose 188 H 122 H Random Glucose Calcium Phosphorus Magnesium Total Bilirubin AST ALT Alkaline Phosphatase Total Protein Albumin MTS Gel Crossmatch 11/11/17 11/11/17 11/10/17 05:40 00:46 17:29 Hgb Hct Sodium 139 Potassium 4.0 Chloride 104 Carbon Dioxide 27.8 Anion Gap 7 BUN 13 Creatinine 0.96 Estimated GFR 74 L POC Glucose 142 H 109 Random Glucose 111 H Calcium 9.2 Phosphorus 3.1 Magnesium 1.8 Total Bilirubin 0.9 AST 29 ALT 31 Alkaline Phosphatase 115 Total Protein 6.9 D Albumin 2.6 L MTS Gel Crossmatch 11/08/17 13:00 Hgb Hct Sodium Potassium Chloride Carbon Dioxide Anion Gap BUN Creatinine Estimated GFR POC Glucose Random Glucose Calcium Phosphorus Magnesium Total Bilirubin AST ALT Alkaline Phosphatase Total Protein Albumin MTS Gel Crossmatch See Detail - Impressions ITS Impressions GI Procedure 10/18/17 00:00 CONCLUSION: Multiple filling defects are identified in the common bile duct which is distended. Small Bowel X-Ray 10/22/17 00:00 CONCLUSION: Findings suggest a partial mid to distal small bowel obstruction. Abdomen X-Ray 10/22/17 07:00 CONCLUSION: Dilated bowel loops in the left abdomen, unchanged. Gastrostomy Tube Placement 10/28/17 00:00 CONCLUSION: 1. Uncomplicated gastrojejunostomy tube placement as above. Abdomen/Pelvis CT 11/03/17 12:07 CONCLUSION: 1. Since the prior study from 10/19/2017 the area of induration caudal to the pancreas within the fat has significantly progressed and demonstrates more soft tissue density within it and enlarged since that time. The pancreas itself appears intact and findings could represent pancreatitis although somewhat unusual in the pancreas itself is completely intact and normal. Clinical correlation is suggested. 2. Bilateral pleural effusions and bibasilar consolidation/infiltrate worse on the right. Chest X-Ray 11/04/17 00:00 CONCLUSION: Very small right pleural effusion otherwise stable chest without significant lung consolidation. <Edie,Thendrex - Last Filed: 11/12/17 11:20> Date of admission: 10/17/17 05:54 Primary care physician: Bimal Cottrell MD DS: Diagnosis - Discharge Diagnosis (1) Pancreatitis Status: Acute (2) Ileus, postoperative Status: Acute (3) Hyperglycemia Status: Acute (4) Hypokalemia Status: Acute (5) Hyponatremia Status: Acute (6) Atrial fibrillation Status: Acute (7) Macrocytic anemia Status: Acute (8) Cholangitis Status: Acute DS: Summary Hospital Course: GJ tube can be removed November 26, 2017. Patient needs repeat CT scan of the abdomen and pelvis on November 19. - Time Spent with Patient Total time spent providing and/or coordinating discharge services: Greater than 30 minutes Exam Vital signs: Vital Signs 11/11/17 12:00 11/11/17 12:24 11/11/17 19:00 Temperature 97.5 F L Pulse Rate 107 H 105 H Respiratory Rate 20 Blood Pressure 119/57 L Pulse Oximetry 95 96 11/11/17 21:30 11/12/17 00:00 11/12/17 00:50 Temperature 98.7 F 97.9 F Pulse Rate 101 H 106 H 89 Respiratory Rate 17 19 Blood Pressure 110/61 115/64 Pulse Oximetry 95 96 11/12/17 07:31 11/12/17 08:00 Temperature 98.3 F 97.6 F Pulse Rate 101 H 80 Respiratory Rate 20 20 Blood Pressure 118/66 130/81 Pulse Oximetry 96 95 Intake & Output 11/11/17 11/12/17 11/12/17 18:59 06:59 18:59 Intake Total 700 / 700 Output Total 840 / 840 600 / 600 Balance -840 / -840 700 / 700 -600 / -600 Weight 86 kg Intake: Oral 700 / 700 Output: Urine 840 / 840 600 / 600 Other: # Voids 3 # Incontinent Voids 2 Date of Last Bowel Movement 11/11/17 11/11/17 # Bowel Movements 1 # Incontinent Bowel Movements 1 1 Results Labs on day of discharge: Labs from last 24 hours 11/12/17 11/12/17 11/11/17 06:20 00:02 16:31 POC Glucose 122 H 131 H 146 H 11/11/17 11:36 POC Glucose 188 H - Impressions ITS Impressions GI Procedure 10/18/17 00:00 CONCLUSION: Multiple filling defects are identified in the common bile duct which is distended. Small Bowel X-Ray 10/22/17 00:00 CONCLUSION: Findings suggest a partial mid to distal small bowel obstruction. Abdomen X-Ray 10/22/17 07:00 CONCLUSION: Dilated bowel loops in the left abdomen, unchanged. Gastrostomy Tube Placement 10/28/17 00:00 CONCLUSION: 1. Uncomplicated gastrojejunostomy tube placement as above. Abdomen/Pelvis CT 11/03/17 12:07 CONCLUSION: 1. Since the prior study from 10/19/2017 the area of induration caudal to the pancreas within the fat has significantly progressed and demonstrates more soft tissue density within it and enlarged since that time. The pancreas itself appears intact and findings could represent pancreatitis although somewhat unusual in the pancreas itself is completely intact and normal. Clinical correlation is suggested. 2. Bilateral pleural effusions and bibasilar consolidation/infiltrate worse on the right. Chest X-Ray 11/04/17 00:00 CONCLUSION: Very small right pleural effusion otherwise stable chest without significant lung consolidation. <Ana Jackson - Last Filed: 11/12/17 18:36> Date of admission: 10/17/17 05:54 Primary care physician: Bimal Cottrell MD DS: Diagnosis - Discharge Diagnosis (1) Pancreatitis Status: Acute (2) Ileus, postoperative Status: Acute DS: Summary - Time Spent with Patient Total time spent providing and/or coordinating discharge services: Exam Vital signs: Vital Signs 11/11/17 19:00 11/11/17 21:30 11/12/17 00:00 Temperature 98.7 F Pulse Rate 101 H 106 H Respiratory Rate 17 Blood Pressure 110/61 Pulse Oximetry 96 95 11/12/17 00:50 11/12/17 07:31 11/12/17 08:00 Temperature 97.9 F 98.3 F 97.6 F Pulse Rate 89 101 H 91 H Respiratory Rate 19 20 20 Blood Pressure 115/64 118/66 130/81 Pulse Oximetry 96 96 95 11/12/17 12:00 11/12/17 12:15 11/12/17 16:00 Temperature 98 F 98.4 F Pulse Rate 116 H 103 H Respiratory Rate 20 20 Blood Pressure 147/79 H 116/57 L Pulse Oximetry 95 95 94 L Intake & Output 11/11/17 11/12/17 11/12/17 18:59 06:59 18:59 Intake Total 700 / 700 360 / 360 Output Total 840 / 840 601 / 601 Balance -840 / -840 700 / 700 -241 / -241 Weight 86 kg Intake: Oral 700 / 700 360 / 360 Output: Urine 840 / 840 600 / 600 Stool Other: # Voids 3 # Incontinent Voids 2 Date of Last Bowel Movement 11/11/17 11/11/17 11/12/17 # Bowel Movements 1 # Incontinent Bowel Movements 1 1 Results Labs on day of discharge: Labs from last 24 hours 11/12/17 11/12/17 11/12/17 17:18 11:45 06:20 POC Glucose 92 204 H 122 H 11/12/17 00:02 POC Glucose 131 H - Impressions ITS Impressions GI Procedure 10/18/17 00:00 CONCLUSION: Multiple filling defects are identified in the common bile duct which is distended. Small Bowel X-Ray 10/22/17 00:00 CONCLUSION: Findings suggest a partial mid to distal small bowel obstruction. Abdomen X-Ray 10/22/17 07:00 CONCLUSION: Dilated bowel loops in the left abdomen, unchanged. Gastrostomy Tube Placement 10/28/17 00:00 CONCLUSION: 1. Uncomplicated gastrojejunostomy tube placement as above. Abdomen/Pelvis CT 11/03/17 12:07 CONCLUSION: 1. Since the prior study from 10/19/2017 the area of induration caudal to the pancreas within the fat has significantly progressed and demonstrates more soft tissue density within it and enlarged since that time. The pancreas itself appears intact and findings could represent pancreatitis although somewhat unusual in the pancreas itself is completely intact and normal. Clinical correlation is suggested. 2. Bilateral pleural effusions and bibasilar consolidation/infiltrate worse on the right. Chest X-Ray 11/04/17 00:00 CONCLUSION: Very small right pleural effusion otherwise stable chest without significant lung consolidation. Discharge Plan - Discharge Order Discharge Orders: Discharge Order (Routine); Ordered 11/11/17 Ordered By: Shelby Ahn - Discharge Details Anticipated Discharge Date: 11/11/17 Discharge Comment: Needs repeat CT abd/pelvis in one week - Physicians Team Primary Care Provider: Bimal Cottrell Attending Provider: Yeimi Irizarry Other Providers: Roseline Odonnell MD ; James Mcbride MD ; Jaya Elkins MD ; [facility] ; [employer]
[2017-11-12] MEDS: Insulin NovoLOG Aspart Correctional Sugar Inj SQ SCH ×4 (06:21→18:03)
[2017-11-12] MEDS: Nystatin Liq 500,000 UNIT/5 ML UDC SWISH-SPIT SCH ×4 (10:23→21:19)
[2017-11-12] MEDS: Senna/Docusate Sodium 8.6/50 MG Tablet PO SCH ×2 (10:23→21:19)
[2017-11-12] MEDS: Magnesium Oxide 400 MG Tablet PO SCH (10:23)
[2017-11-12] MEDS: Heparin Central Flush 100 UNIT/ML 5 ML Vial IV.FLUSH SCH (10:24)
--- NOTE | 2017-11-12 10:45 | P.PNIM ---
Subjective Interval history: Follow-up for pancreatitis Mild abdominal pain, no nausea or vomiting. Comfortable. Physical Exam Vital signs: Vital Signs 11/11/17 12:00 11/11/17 12:24 11/11/17 19:00 Temperature 97.5 F L Pulse Rate 107 H 105 H Respiratory Rate 20 Blood Pressure 119/57 L Pulse Oximetry 95 96 11/11/17 21:30 11/12/17 00:00 11/12/17 00:50 Temperature 98.7 F 97.9 F Pulse Rate 101 H 106 H 89 Respiratory Rate 17 19 Blood Pressure 110/61 115/64 Pulse Oximetry 95 96 11/12/17 07:31 11/12/17 08:00 Temperature 98.3 F 97.6 F Pulse Rate 101 H 80 Respiratory Rate 20 20 Blood Pressure 118/66 130/81 Pulse Oximetry 96 95 Intake & Output 11/11/17 11/12/17 11/12/17 18:59 06:59 18:59 Intake Total 700 / 700 Output Total 840 / 840 600 / 600 Balance -840 / -840 700 / 700 -600 / -600 Weight 86 kg Intake: Oral 700 / 700 Output: Urine 840 / 840 600 / 600 Other: # Voids 3 # Incontinent Voids 2 Date of Last Bowel Movement 11/11/17 11/11/17 # Bowel Movements 1 # Incontinent Bowel Movements 1 1 Narrative: GENERAL: Not in distress, comfortable. SKIN: Warm and dry. Erythematous papular rash on back looks improved. CARDIOVASCULAR: Regular rate and rhythm without murmurs, gallops, or rubs. RESPIRATORY: Nonlabored. Decreased in both lung bases. Clear to auscultation. GASTROINTESTINAL: Abdomen soft,nondistended. Mild tenderness on palpation tube feed G AND J TUBE in the anterior abdomen clamped. MUSCULOSKELETAL: No cyanosis, or edema noted. NEURO: Awake, alert, oriented 3. Hard of hearing. Able to move all extremities spontaneously. Motor function grossly intact. No focal neurological deficits. Clear speech. - Urinary Catheter Management Indwelling Urethral Catheter Cath placed during this visit: yes, but has since been removed by the nurse Reason for continuing: Decision to DC catheter Insertion date: 10/17/17 Insertion time: 17:30 Removal date: 10/25/17 Removal time: 14:38 Condom Cath placed during this visit: no Results - Labs CBC & Chem 7: 11/11/17 05:46 11/11/17 05:40 Laboratory Results - last 24 hr 11/11/17 11/11/17 11/12/17 11:36 16:31 00:02 POC Glucose 188 H 146 H 131 H 11/12/17 06:20 POC Glucose 122 H - Procedures ERCP 10/18/2017 IMPRESSIONS: 1. A previously placed ampulla stent was seen extending from the orifice, removed by snare. 2. 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 3. Sphincterotomy done. 4. Ductal sweep with balloon and irrigation removing multiple variable size stones, sludge and debris. 5. Normal inclusion cholangiogram afterward Post Procedure Progress Note - Pre Procedure Diagnosis (1) Pancreatitis - Post Procedure Diagnosis (1) Pancreatitis - Procedure Information Procedure Date: 10/28/17 Supervising Radiologist: John Velez Jr, MD Estimated blood loss (mL): 0 Anesthesia: Conscious Sedation - Plan of Activity Patient to Unit: ROPU Patient Condition: Good See PACS Report for procedural detail/treatment. Feeding Tube Feeding Tube: Gastro/Jejunostomy Procedure: Placement Arabic Tube Size: 18 Findings: Tip of J tube in prox jejunum. Plan: T fasteners will fall off in 2-3 weeks. Assessment and Plan - Assessment (1) Pancreatitis Code(s): K85.90 - Acute pancreatitis without necrosis or infection, unspecified Status: Acute (2) Ileus, postoperative Code(s): K91.89 - Other postprocedural complications and disorders of digestive system; K56.7 - Ileus, unspecified Status: Acute (3) Hyperglycemia Code(s): R73.9 - Hyperglycemia, unspecified Status: Acute (4) Hypokalemia Code(s): E87.6 - Hypokalemia Status: Acute (5) Hyponatremia Code(s): E87.1 - Hypo-osmolality and hyponatremia Status: Acute (6) Atrial fibrillation Code(s): I48.91 - Unspecified atrial fibrillation Status: Acute (7) Macrocytic anemia Code(s): D53.9 - Nutritional anemia, unspecified Status: Acute (8) Cholangitis Code(s): K83.0 - Cholangitis Status: Acute - Plan 87 year old male with history of choledocholithiasis and cholangitis status post recent ERCP admitted on 10/[address] A/ P as well as lipase level indicate acute pancreatitis. Course has been complicated by ileus. Pancreatitis, improving Chronic diarrhea s/p ERCP with sphincterotomy and stent removal and stone and sludge removal Feeding tube placed 10/28/2017 Lipase level improved but remains elevated. Patient tolerating po diet. Off TPN. Asymptomatic. For G/J tube today by IR in 2 weeks (November 26) per protocol. Continue po diet as tolerated. Repeat CT scan in one week per GIm (11/19), monitor LFTs and lipase intermittently, follow-up with GI in 2 weeks after discharge. Cleared by GI for discharge. Leukocytosis, possibly 2/2 steroid effect, resolved Recent PNA, treated with IV Zosyn and Azithromycin 10/20 to 11/02 Patient appears clinically much improved He is afebrile, does not appear septic. White count now WNL. Macrocytic Anemia, acute on chronic B12 level 682 Folate greater than 20 s/p transfusion 2u PRBCs 10/27. Hgb dropped from 8.2 to 7.4. s/p additional unit transfused 11/08. Hgb improved to 8.9. No e/o active bleeding. Stool hemoccult neg 11/05. Partial small bowel obstruction, resolved patient having bowel movements CT abd/pelvis 11/03 shows no e/o obstruction Atrial fibrillation First-degree AV block Right bundle branch block Currently rate controlled Follow on telemetry 11/07 patients pacemaker cutting in and out. Pacemaker interrogated, normal function, episode of A. fib lasting 1 hour 11/06 [id number] score 2. Patient is not on any anticoagulation. Unable to take ASA 2/2 allergy. Hyperglycemia, suspect secondary to IV steroids and TPN Hgb A1c 5.8 BS improved Continue Accu-Cheks and low dose insulin sliding scale Hypomagnesemia Mag low normal at 1.7 Give po repletion Generalized deconditioning Prolonged hospitalization Continue with PT/OT -medically cleared for discharge to [facility] if insurance authorizes. If not, plan for [facility]. DVT prophylaxis SCDs Heparin sq Code Status: Full Discharge Planning: Cleared for discharge by GI to rehab.
[2017-11-12] MEDS: dilTIAZem 30 MG Tablet PO SCH ×3 (14:44→21:18)
[2017-11-13] MEDS: Insulin NovoLOG Aspart Correctional Sugar Inj SQ SCH ×3 (03:24→12:52)
[2017-11-13] MEDS ORDERED: dilTIAZem CD 120 MG Capsule PO SCH (09:00)
[2017-11-13] MEDS: Heparin Central Flush 100 UNIT/ML 5 ML Vial IV.FLUSH SCH (09:06)
[2017-11-13] MEDS: Senna/Docusate Sodium 8.6/50 MG Tablet PO SCH (09:07)
[2017-11-13] MEDS: Nystatin Liq 500,000 UNIT/5 ML UDC SWISH-SPIT SCH ×2 (09:08→12:54)
[2017-11-13 10:07] VITALS: RESP 18; TEMP 97.6
[2017-11-13 13:09] VITALS: BP 125/63; PULSE 99; O2SAT 95
--- NOTE | 2017-11-13 14:03 | P.PNIM ---
Subjective Interval history: Patient back in sinus rhythm, heart rate controlled. EKG showed paced ventricular rhythm. Blood pressure stable. No overnight events. Physical Exam Vital signs: Vital Signs 11/12/17 16:00 11/12/17 19:49 11/12/17 20:45 Temperature 98.4 F 98 F Pulse Rate 103 H 99 H 67 Respiratory Rate 20 17 Blood Pressure 116/57 L 117/76 Pulse Oximetry 94 L 97 11/13/17 00:00 11/13/17 00:45 11/13/17 03:48 Temperature 97.6 F Pulse Rate 92 H 66 82 Respiratory Rate 20 Blood Pressure 119/76 Pulse Oximetry 98 11/13/17 05:30 11/13/17 08:00 11/13/17 12:00 Temperature 98 F 97.6 F 97.6 F Pulse Rate 68 92 H 99 H Respiratory Rate 19 18 18 Blood Pressure 128/68 117/66 125/63 Pulse Oximetry 96 97 95 Intake & Output 11/12/17 11/13/17 11/13/17 18:59 06:59 18:59 Intake Total 360 / 360 1830 / 1830 Output Total 601 / 601 1050 / 1050 600 / 600 Balance -241 / -241 780 / 780 -600 / -600 Weight 86 kg 86 kg Intake: Oral 360 / 360 1830 / 1830 Output: Urine 600 / 600 1050 / 1050 600 / 600 Stool 1 / Other: # Incontinent Voids 2 1 Date of Last Bowel Movement 11/12/17 11/12/17 11/13/17 # Bowel Movements 1 1 # Incontinent Bowel Movements 1 Narrative: GENERAL: Not in distress, comfortable. SKIN: Warm and dry. Erythematous papular rash on back looks improved. CARDIOVASCULAR: Regular rate and rhythm without murmurs, gallops, or rubs. RESPIRATORY: Nonlabored. Decreased in both lung bases. Clear to auscultation. GASTROINTESTINAL: Abdomen soft,nondistended. Mild tenderness on palpation tube feed G AND J TUBE in the anterior abdomen clamped. MUSCULOSKELETAL: No cyanosis, or edema noted. NEURO: Awake, alert, oriented 3. Hard of hearing. Able to move all extremities spontaneously. Motor function grossly intact. No focal neurological deficits. Clear speech. - Urinary Catheter Management Indwelling Urethral Catheter Cath placed during this visit: yes, but has since been removed by the nurse Reason for continuing: Decision to DC catheter Insertion date: 10/17/17 Insertion time: 17:30 Removal date: 10/25/17 Removal time: 14:38 Condom Cath placed during this visit: no Results - Labs CBC & Chem 7: 11/11/17 05:46 11/11/17 05:40 Laboratory Results - last 24 hr 11/12/17 11/13/17 11/13/17 17:18 00:20 06:03 POC Glucose 92 139 H 116 H 11/13/17 11/13/17 07:30 11:41 POC Glucose 122 H 195 H - Procedures ERCP 10/18/2017 IMPRESSIONS: 1. A previously placed ampulla stent was seen extending from the orifice, removed by snare. 2. 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 3. Sphincterotomy done. 4. Ductal sweep with balloon and irrigation removing multiple variable size stones, sludge and debris. 5. Normal inclusion cholangiogram afterward Post Procedure Progress Note - Pre Procedure Diagnosis (1) Pancreatitis - Post Procedure Diagnosis (1) Pancreatitis - Procedure Information Procedure Date: 10/28/17 Supervising Radiologist: John Velez Jr, MD Estimated blood loss (mL): 0 Anesthesia: Conscious Sedation - Plan of Activity Patient to Unit: ROPU Patient Condition: Good See PACS Report for procedural detail/treatment. Feeding Tube Feeding Tube: Gastro/Jejunostomy Procedure: Placement Setswana Tube Size: 18 Findings: Tip of J tube in prox jejunum. Plan: T fasteners will fall off in 2-3 weeks. Assessment and Plan - Assessment (1) Pancreatitis Code(s): K85.90 - Acute pancreatitis without necrosis or infection, unspecified Status: Acute (2) Ileus, postoperative Code(s): K91.89 - Other postprocedural complications and disorders of digestive system; K56.7 - Ileus, unspecified Status: Acute (3) Hyperglycemia Code(s): R73.9 - Hyperglycemia, unspecified Status: Acute (4) Hypokalemia Code(s): E87.6 - Hypokalemia Status: Acute (5) Hyponatremia Code(s): E87.1 - Hypo-osmolality and hyponatremia Status: Acute (6) Atrial fibrillation Code(s): I48.91 - Unspecified atrial fibrillation Status: Acute (7) Macrocytic anemia Code(s): D53.9 - Nutritional anemia, unspecified Status: Acute (8) Cholangitis Code(s): K83.0 - Cholangitis Status: Acute - Plan 87 year old male with history of choledocholithiasis and cholangitis status post recent ERCP admitted on 10/17 with progressive abdominal pain. CT A/ P as well as lipase level indicate acute pancreatitis. Course has been complicated by ileus. Pancreatitis, improving Chronic diarrhea s/p ERCP with sphincterotomy and stent removal and stone and sludge removal Feeding tube placed 10/28/2017 Lipase level improved but remains elevated. Patient tolerating po diet. Off TPN. Asymptomatic. For G/J tube removal by IR in 2 weeks (November 28) per protocol. Continue po diet as tolerated. Repeat CT scan in one week per GI (11/19), monitor LFTs and lipase intermittently, follow-up with GI in 2 weeks after discharge. Cleared by GI for discharge. Leukocytosis, possibly 2/2 steroid effect, resolved Recent PNA, treated with IV Zosyn and Azithromycin 10/20 to 11/02 Patient appears clinically much improved He is afebrile, does not appear septic. White count now WNL. Macrocytic Anemia, acute on chronic B12 level 682 Folate greater than 20 s/p transfusion 2u PRBCs 10/27. Hgb dropped from 8.2 to 7.4. s/p additional unit transfused 11/08. Hgb improved to 8.9. No e/o active bleeding. Stool hemoccult neg 11/05. Partial small bowel obstruction, resolved patient having bowel movements CT abd/pelvis 11/03 shows no e/o obstruction Atrial fibrillation First-degree AV block Right bundle branch block Currently rate controlled Follow on telemetry 11/07 patients pacemaker cutting in and out. Pacemaker interrogated, normal function, episode of A. fib lasting 1 hour 11/06 [id number] score 2. Patient is not on any anticoagulation. Unable to take ASA 2/2 allergy. Patient went back to atrial fibrillation, EKG showed paced rhythm heart rate in the 120s, Cardizem was started. On the day of discharge, heart rate in the 80s , discharge on Cardizem 120 mg long-acting daily. Hyperglycemia, suspect secondary to IV steroids and TPN Hgb A1c 5.8 BS improved Continue Accu-Cheks and low dose insulin sliding scale Hypomagnesemia Mag low normal at 1.7 Generalized deconditioning Prolonged hospitalization Continue with PT/OT -medically cleared for discharge to [facility] if insurance authorizes. If not, plan for [facility]. DVT prophylaxis SCDs Heparin sq Code Status: Full Discharge Planning: Cleared for discharge to SNF
--- NOTE | 2017-11-13 22:42 | ECG ---
Date Performed: 11/12/2017 Time Performed: 13:34:15 PTAGE: 87 years EKG: ELECTRONIC VENTRICULAR PACEMAKER ABNORMAL RHYTHM ECG PREVIOUS TRACING : 11/05/2017 10.16 Since the previous tracing, no significant change noted DOCTOR: Kendrick Chairez Interpretating Date/Time 11/13/2017 22:40:31
== END 2017-11-13 14:32 ==
LOC: NEPC 03:33 → NEDA 05:54 → HCIN 17:40 → HCPC 10-18 16:58 → N03 10-23 04:07 → N05 10-29 17:50
PROVIDERS: ADMIT Hospitalist; ATTEND Hospitalist